=== PATIENT | female | born 1950 | race Caucasian/White ===

== ENCOUNTER 2019-10-23 20:15 | Emergency (ER) | payer MEDICARE, OTHER ==
[~2019-10-23] VITALS: Ht 170.2 cm; Wt 129.3 kg
--- OUTSIDE RECORDS SUMMARY | ~2019-10-23 | XMS | Encounter Summary ---
Demographics + + + | Address | [address] | | | [place] [address] | + + + | Home Phone | | + + + | Preferred Language | Unknown | + + + | Marital Status | Single | + + + | Synagogue Affiliation | 1077 | + + + | Race | Unknown | + + + | Ethnic Group | Unknown | + + + Author + + + | Author | [facility] | | | and [place] | + + + | Organization | [facility] | | | and [facility] | + + + | Address | Unknown | + + + | Phone | Unavailable | + + + Support + + + + + | Name | Relationship | Address | Phone | + + + + + | Aleks Noguera | BRYANT | [address] | | | | | [place], [place] | | | | | [address] | | + + + + + | Jelena Hill | ECON | [place] | | | | | [address] | | + + + + + Care Team Providers + +------+ + | Care Human Resource Statistician Name | Role | Phone | + +------+ + | Ivy Sun | PCP | | + +------+ + Encounter Details +--------+ + + + + | Date | Type | Department | Care Team | Description | +--------+ + + + + | 08/17/ | Hospital | 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; Rib pain | | | | [address] [place] | [address] [place], [place] | on right side | | | | [place], [place] | [address] | | | | | [address] | | | | | | [phone] | | | +--------+ + + + + Social History + + + +--------+------+ | Tobacco Use | Types | Packs/Day | Years | Date | | | | | Used | | + + + +--------+------+ | Former Smoker | Cigarettes | 0.5 | 15 | | + + + +--------+------+ + +---+---+ + | Smokeless Tobacco: | | | Quit: | | Former User | | | 11/23/19 | | | | | 15 | + +---+---+ + + + | Comments: at last visit since starting Chantix 08/25/12 | + + + + +---------+ + | Alcohol Use | Drinks/Week | oz/Week | Comments | + + +---------+ + | No | | | | + + +---------+ + + + + | Sex Assigned at | Date Recorded | | | | + + + | Not on file | | + + + + + + + | Job Start Date | Occupation | Industry | + + + + | Not on file | Not on file | Not on file | + + + + + + + + | Travel History | Travel Start | Travel End | + + + + + + | No recent travel history available. | + + documented as of this encounter Medications at Time of Discharge + + + +---------+ + + | Medication | Sig | Dispensed | Refills | Start | End Date | | | | | | Date | | + + + +---------+ + + | aspirin (ASPIRIN | Take 81 mg by mouth | | 0 | 07/08/20 | | | ADULT LOW STRENGTH) | Daily. | | | 12 | | | 81 MG EC tablet | | | | | | + + + +---------+ + + | UNCODED | Diagnosis: | 1 | 0 | 08/26/20 | | | MEDICATIONIndication | Obstructive Sleep | Device | | 12 | | | s: Obstructive sleep | ApneaICD-9: | | | | | | apnea (adult) | 327.23Length of | | | | | | (pediatric) | Need: 99 Months | | | | | + + + +---------+ + + | UNCODED MEDICATION | Wear at all times | 1 | 0 | 08/11/20 | | | | while sleeping. | Device | | 12 | | + + + +---------+ + + | alendronate | Take 1 tablet by | 12 | 3 | 10/14/20 | | | (FOSAMAX) 70 mg | mouth Once a week. | tablet | | 13 | 6 | | tabletIndications: | | | | | | | Osteopenia | | | | | | + + + +---------+ + + | Calcium | Take 1 tablet by | | 0 | | | | Carb-Cholecalciferol | mouth Daily. | | | | 8 | | (CALCIUM 1000 + D) | | | | | | | 1000-800 MG-UNIT | | | | | | | TABSIndications: | | | | | | | Vitamin D deficiency | | | | | | + + + +---------+ + + | cholecalciferol | Take 1,000 Units by | | 0 | | | | (VITAMIN D-3) 1,000 | mouth Daily. | | | | 6 | | units | | | | | | | capsuleIndications: | | | | | | | Vitamin D deficiency | | | | | | + + + +---------+ + + | FreeStyle Lancets | Test blood sugar | 100 | 5 | 03/09/20 | | | MISCIndications: | twice daily. 790.29 | each | | 14 | 8 | | Prediabetes | | | | | | + + + +---------+ + + | gabapentin | Take one capsule by | 90 | 1 | 08/17/20 | | | (NEURONTIN) 300 mg | mouth at bedtime for | capsule | | 15 | 6 | | capsuleIndications: | 3 days, then | | | | | | Right-sided thoracic | increase to 600 mg | | | | | | back pain | at bedtime daily | | | | | + + + +---------+ + + | glucose blood | Test blood sugar | 100 | 5 | 03/09/20 | | | test strips | twice daily. 790.29 | each | | 14 | 8 | | (FREESTYLE LITE) | | | | | | | stripIndications: | | | | | | | Prediabetes | | | | | | + + + +---------+ + + | | Take 1 tablet by | 40 | 0 | 08/18/20 | | | HYDROcodone-acetamin | mouth every 6 hours | tablet | | 15 | 6 | | ophen (NORCO) 5-325 | as needed for Pain. | | | | | | mg per | | | | | | | tabletIndications: | | | | | | | Compression fracture | | | | | | | of thoracic spine, | | | | | | | non-traumatic, | | | | | | | initial encounter | | | | | | | (HCC) | | | | | | + + + +---------+ + + | lisinopril | Take 1 tablet by | 90 | 1 | 02/10/20 | | | (PRINIVIL, ZESTRIL) | mouth every morning. | tablet | | 15 | 6 | | 10 mg | | | | | | | tabletIndications: | | | | | | | Essential | | | | | | | hypertension | | | | | | + + + +---------+ + + | | Take 1 tablet by | | 0 | | | | MedroxyPROGESTERone | mouth. Take 1 tablet | | | | 6 | | Acetate (PROVERA | QD x 10 days every | | | | | | PO)Indications: | 3 months for | | | | | | Postmenopausal | breakthrough menses | | | | | | vaginal bleeding | post menopause. | | | | | + + + +---------+ + + | metFORMIN | Take 1 tablet by | 90 | 1 | 02/10/20 | | | (GLUCOPHAGE) 500 mg | mouth daily (with | tablet | | 15 | 5 | | tabletIndications: | breakfast). | | | | | | Prediabetes | | | | | | + + + +---------+ + + | nortriptyline | Take 3 capsules by | 270 | 1 | 11/25/19 | | | (PAMELOR) 10 MG | mouth nightly. | capsule | | 15 | 5 | | capsule | | | | | | + + + +---------+ + + | paroxetine (PAXIL) | TAKE 1 TABLET BY | 90 | 1 | 02/10/20 | | | 40 MG | MOUTH DAILY | tablet | | 15 | 6 | | tabletIndications: | | | | | | | Anxious depression | | | | | | + + + +---------+ + + | rOPINIRole | Take 1 tablet by | 90 | 3 | 11/10/19 | | | (REQUIP) 2 MG | mouth nightly. | tablet | | 15 | 6 | | tabletIndications: | | | | | | | Restless legs | | | | | | + + + +---------+ + + | simvastatin | TAKE 1 TABLET BY | 90 | 3 | 07/28/20 | | | (ZOCOR) 10 mg tablet | MOUTH NIGHTLY | tablet | | 14 | 5 | + + + +---------+ + + | triamcinolone | Apply thin film to | 80 g | 1 | 10/14/20 | | | (KENALOG) 0.025% | affected area(s) two | | | 13 | 6 | | creamIndications: | daily as needed | | | | | | Seborrheic | | | | | | | dermatitis | | | | | | + + + +---------+ + + documented as of this encounter Plan of Treatment +--------+---------+ + + + | Date | Type | Specialty | Care Team | Description | +--------+---------+ + + + | 11/23/ | Office | Family Medicine | Ivy Sun | | | 2019 | Visit | | [address] | | | | | | [place] | | | | | | [id number] | | | | | | | | +--------+---------+ + + + documented as of this encounter Procedures + +--------+ + + + | Procedure Name | Priori | Date/Time | Associated Diagnosis | Comments | | | ty | | | | + +--------+ + + + | XR THORACIC SPINE 3 | Routin | 08/17/2015 | Right-sided | Results for this | | VW | e | 12:39 PM | thoracic back pain | procedure are in the | | | | PDT | | results section. | + +--------+ + + + | XR RIBS RIGHT W PA | Routin | 08/17/2015 | Rib pain on right | Results for this | | CHEST | e | 12:39 PM | side | procedure are in the | | | | PDT | | results section. | + +--------+ + + + documented in this encounter Results XR Ribs Right w PA Chest (08/17/2015 12:39 PM PDT) + + | Specimen | + + | | + + + + + | Narrative | Performed At | + + + | XR RIBS RIGHT W PA CHEST. 08/17/2015 12:39 PM HISTORY: | [facility] | | posterior right rib pain . COMPARISON: Thoracic spine x-ray | [facility] | | from same date FINDINGS: Heart size within normal limits. | [facility] | | Calcification of the tortuous aorta. The lungs are clear, without | - IMAGING | | pleural effusion or pneumothorax. S-shaped scoliotic deformity of | | | the thoracic spine, as described on the report from the thoracic | | | spine x-ray from the same date. There is a nondisplaced fracture of | | | the right posterior lateral ninth rib. No acute abnormality of the | | | soft tissues. IMPRESSION - Nondisplaced fracture of the right | | | posterior lateral ninth rib. Dictated and Signed by: Nacho | | | MD Benji Electronically signed: 08/17/2015 2:42 PM | | + + + + + | Procedure Note | + + | Yohannes, Rad Results In - 08/17/2015 2:46 PM PDT XR RIBS RIGHT W PA CHEST. 08/17/2015 | | 12:39 PMHISTORY: posterior right rib pain . COMPARISON: Thoracic spine x-ray from same | | dateFINDINGS:Heart size within normal limits. Calcification of the tortuous aorta. | | Thelungs are clear, without pleural effusion or pneumothorax. S-shaped | | scolioticdeformity of the thoracic spine, as described on the report from the | | thoracicspine x-ray from the same date.There is a nondisplaced fracture of the right | | posterior lateral ninth rib. Noacute abnormality of the soft tissues.IMPRESSION | | -Nondisplaced fracture of the right posterior lateral ninth rib.Dictated and Signed by: | | Nacho Leblanc MD Electronically signed: 08/17/2015 2:42 PM | |deformity of the thoracic spine, as described on the report from the thoracic | |spine x-ray from the same date. | |There is a nondisplaced fracture of the right posterior lateral ninth rib. No | |acute abnormality of the soft tissues. | | | | | |IMPRESSION - | |Nondisplaced fracture of the right posterior lateral ninth rib. | | | |Dictated and Signed by: Nacho Leblanc MD | | Electronically signed: 08/17/2015 2:42 PM | + + + + + + + | Performing | Address | City/State/Zipcode | Phone Number | | Organization | | | | + + + + + | [facility] | [address] | [place] | [phone] | | [facility] | | [address] | | | - IMAGING | | | | + + + + + XR Thoracic Spine 3 Vw (08/17/2015 12:39 PM PDT) + + | Specimen | + + | | + + + + + | Narrative | Performed At | + + + | XR THORACIC SPINE 3 VW. 08/17/2015 12:39 PM HISTORY: thoracic | [facility] | | back pain . COMPARISON: None available. FINDINGS: There is | [facility] | | a as S-shaped scoliotic deformity of the spine, levoconvex centered | [facility] | | at approximately the level of T4, and dextroconvex centered at the | - IMAGING | | thoracolumbar junction. There is approximately 25 degrees of | | | angulation in the upper thoracic spine, with approximately 10 degrees | | | of angulation at the thoracolumbar junction. There is exaggeration | | | of the thoracic kyphosis. Vertebral body alignment otherwise | | | appears maintained. There is loss of vertebral body height | | | secondary to superior endplate compression fracture, of uncertain | | | chronicity, with approximately 15-20% loss of vertebral body height | | | in a vertebral body in the mid to lower thoracic spine. Diminished | | | vertebral body height is seen to a lesser extent in several other mid | | | thoracic vertebral bodies. There is diffuse degenerative disc | | | disease. Multiple surgical clips in the upper abdomen, | | | predominantly on the left. IMPRESSION - S-shaped scoliotic | | | deformity, as detailed above. Approximately 15-20% loss of vertebral | | | body height in the mid to lower thoracic vertebral body, of uncertain | | | chronicity, possibly acute. Diminished vertebral body height at | | | several other levels in the midthoracic spine to a lesser extent. | | | Dictated and Signed by: Nacho Leblanc MD Electronically signed: | | | 08/17/2015 2:39 PM | | + + + + + | Procedure Note | + + | Yohannes, Rad Results In - 08/17/2015 2:42 PM PDT XR THORACIC SPINE 3 VW. 08/17/2015 | | 12:39 PMHISTORY: thoracic back pain . COMPARISON: None available.FINDINGS:There is a as | | S-shaped scoliotic deformity of the spine, levoconvex centered atapproximately the | | level of T4, and dextroconvex centered at the thoracolumbarjunction. There is | | approximately 25 degrees of angulation in the upper thoracicspine, with approximately 10 | | degrees of angulation at the thoracolumbarjunction. There is exaggeration of the | | thoracic kyphosis. Vertebral bodyalignment otherwise appears maintained. There is loss | | of vertebral body heightsecondary to superior endplate compression fracture, of | | uncertain chronicity,with approximately 15-20% loss of vertebral body height in a | | vertebral body inthe mid to lower thoracic spine. Diminished vertebral body height is | | seen to alesser extent in several other mid thoracic vertebral bodies. There is | | diffusedegenerative disc disease. Multiple surgical clips in the upper | | abdomen,predominantly on the left.IMPRESSION -S-shaped scoliotic deformity, as detailed | | above.Approximately 15-20% loss of vertebral body height in the mid to lower | | thoracicvertebral body, of uncertain chronicity, possibly acute. Diminished | | vertebralbody height at several other levels in the midthoracic spine to a lesser | | extent.Dictated and Signed by: Nacho Leblanc MD Electronically signed: 08/17/2015 | | 2:39 PM | |predominantly on the left. | | | | | |IMPRESSION - | |S-shaped scoliotic deformity, as detailed above. | |Approximately 15-20% loss of vertebral body height in the mid to lower thoracic | |vertebral body, of uncertain chronicity, possibly acute. Diminished vertebral | |body height at several other levels in the midthoracic spine to a lesser extent. | | | |Dictated and Signed by: Nacho Leblanc MD | | Electronically signed: 08/17/2015 2:39 PM | + + + + + + + | Performing | Address | City/State/Zipcode | Phone Number | | Organization | | | | + + + + + | [facility] | [address] | [place] | [phone] | | [facility] | | [phone] | | | - IMAGING | | | | + + + + + documented in this encounter Visit Diagnoses + + | Diagnosis | + + | Right-sided thoracic back pain | + + | Rib pain on right side Chest pain, unspecified | + + documented in this encounter"
--- OUTSIDE RECORDS SUMMARY | ~2019-10-23 | XMS | Encounter Summary ---
Demographics + + + | Address | [address] | | | [place] [address] | + + + | Home Phone | | + + + | Preferred Language | Unknown | + + + | Marital Status | Single | + + + | Jehovah'S Witness Affiliation | 1077 | + + + | Race | Unknown | + + + | Ethnic Group | Unknown | + + + Author + + + | Author | [facility] | | | and [place]ainerana | + + + | Organization | [facility] | | | and Rainerana [...] [place], [place] | | | | | [address] | | + + + + + | [address] | ECON | [place] | | | | | [address] | | + + + + + Care Team Providers + +------+ + | Care Grain Manager Name | Role | Phone | + +------+ + | Ivy Sun | PCP | | + +------+ + Reason for Visit + + + | Reason | Comments | + + + | Follow-up | | + + + Encounter Details +--------+---------+ + + + | Date | Type | Department | Care Team | Description | +--------+---------+ + + + | 09/07/ | Office | [facility] | Ivy Sun | Osteopenia (Primary | | 2014 | Visit | [facility] [place] | L, JUSTYN [address] | Dx); Compression | | | | [address] | [address]VE [place] | fracture of thoracic | | | | [place] | [phone] | vertebra, | | | | [address] | | non-traumatic, with | | | | [phone] | | routine healing, | | | | | | subsequent | | | | | | encounter; Fracture | | | | | | of one rib of right | | | | | | side with routine | | | | | | healing, subsequent | | | | | | encounter; Sinus | | | | | | tachycardia; | | | | | | Prediabetes; History | | | | | | of compression | | | | | | fracture of spine | +--------+---------+ + + + Social History + + [...] + + documented as of this encounter Last Filed Vital Signs + + + + + | Vital Sign | Reading | Time Taken | Comments | + + + + + | Blood Pressure | 130/80 | 09/07/2015 9:19 AM | | | | | PST | | + + + + + | Pulse | 120 | 09/07/2015 9:19 AM | | | | | PST | | + + + + + | Temperature | 36.9 C (98.5 F) | 09/07/2015 9:19 AM | | | | | PST | | + + + + + | Respiratory Rate | 18 | 09/07/2015 9:19 AM | | | | | PST | | + + + + + | Oxygen Saturation | 99% | 09/07/2015 9:19 AM | | | | | PST | | + + + + + | Inhaled Oxygen | - | - | | | Concentration | | | | + + + + + | Weight | 131.1 kg (289 lb) | 09/07/2015 9:19 AM | | | | | PST | | + + + + + | Height | 170.2 cm (5' 7") | 09/07/2015 9:19 AM | | | | | PST | | + + + + + | Body Mass Index | 45.26 | 09/07/2015 9:19 AM | | | | | PST | | + + + + + documented in this encounter Progress Notes Ivy Sun ARNP - 09/07/2015 9:11 AM PSTFormatting of this note might be differen t from the original. Lucie Miller is a 65 y.o. female Chief Complaint: Back Pain HPI Patient is here to follow up on her upper back pain from her compression and rib fracture. X-ray and MRI have been attained to confirm these diagnoses. Referrals been placed to neur osurgery and she has an upcoming appointment. She reports her pain is much better although she reports mild twinges when she gets up from a low position or takes a real deep breath. S he feels like the Gabapentin has helped a lot. She took the Hydrocodone last about 1 week ag o. Denies numbness or tingling anywhere. MRI results as follows: MRI THORACIC SPINE WO CONTRAST 08/24/2015 11:32 AM HISTORY: compression fracture seen on x-ray mid to lower thoracic spine, back pain. COMPARISON: None. PROTOCOL: Sagittal T2, sagittal T1, sagittal STIR, axial T2. FINDINGS: Mild S-shaped scoliosis is visualized of the thoracolumbar spine. There is mild thoracic spondylosis. Mild anterolisthesis is present of T3 over T4. Mild wedging of T8 is seen with about 20% height loss. A moderate amount of marrow edema is seen with high signal on T2 and STIR imaging. No destructive changes or mass lesions are seen to suggest pathologic fracture. Modic type 1 changes are in the posterior, inferior aspect of T7. Disc height are maintained. Imaged spinal cord shows normal signal with no evidence for myelomalacia or mass lesions. Tiny posterior disc bulges are present from T7-8 through T11-12 with no significant stenosis. There is a 2.0 cm round structure with high T2 signal in the left upper quadrant of the abdomen (image 25 on the axial T2 lower sequence) that has the appearance of a cyst, possibly from the left kidney. IMPRESSION - Mild compression fracture of T8 with moderate marrow edema that is consistent with recent occurrence. No destructive changes are seen to suggest a pathologic fracture. Mild S-shaped scoliosis of the thoracolumbar spine along with mild thoracic spondylosis. Round 2.0 cm structure with high T2 signal in left upper quadrant of abdomen that is only partially imaged. This has the appearance of a cyst, possibly from the left kidney. If clinically indicated, ultrasound imaging can be considered. Dictated and Signed by: Markie Baig MD Tachycardia Patient reports her heart rate is typically over 100. She see's Dr Wolf in cardiology and he is aware and is not concerned. Her recent EKG results were sinus tachycardia with right bundle branch block. She is schedule for yearly follow up in cardiology. She denies any pal pitations or chest pain, shortness of breath associated with this. She does feel that she b ecomes nervous when she comes into the clinic. Osteopenia Patient had a recent DEXA scan results as follows: She has been taking Fosamax for the past 2 years. She admits that she forgets frequently a nd best takes it once a month. She tolerates this well. DEXA BONE DENSITY STUDY OLIVIA ROSSI ASSESSMENT 09/06/2015 11:15 AM HISTORY: osteopenia and Hx of compression fracture of the spine. COMPARISON: May 12, 2013. PROTOCOL: Bone mineral density was calculated with dual absorption x-ray technique. FINDINGS: Bone mineral density for the left femoral neck is 0.736 g/cm2, corresponding to a T score of -1.7 and a Z score of -0.6. This represents a 3.7% decrease compared to baseline. This is not statistically significant. Bone mineral density for the lumbar spine measured from L1 to L2 is 0.851 g/cm2, corresponding to a T score of -1.2 and a Z score of 0.4. This represents a 1% decrease compared to baseline. This is not statistically significant. L3 and L4 are not utilized due to degenerative changes resulting in false elevation of bone mineral density. IMPRESSION - Total bone mineral density for the left femoral neck corresponds to World Health Organization classification of osteopenia. Total bone mineral density for the L1 to L4 region of the lumbar spine corresponds to World Health Organization classification of osteopenia. World Health Organization Classification Normal: T score at or above -1 SD Osteopenia: T score between -1 and -2.5 SD Osteoporosis: T score at or below -2.5 SD Dictated and Signed by: Forest Manley MD Electronically signed: 09/06/2015 4:38 PM Prediabetes Needs refill of Metformin PREVENTIVE CARE/PRIOR VISITS 1. Any recommendations from Health Maintenance: No Preventative Services TOPIC LAST DONE NEXT DUE Influenza Vaccine (Yearly) 08/17/2015 05/28/2016 Breast Cancer Screening (Mamm Q2 Years <50 Or >74 10/20/2013 10/20/2015 Colon Cancer Screening (Colonoscopy Every 10 Years 50-75) 05/20/2011 05/20/2021 Cervical Cancer Screening (Pap Every 3 Years 21-65 ) 05/05/2013 05/05/2016 2. Any immunizations necessary: No Immunization History Administered Date(s) Administered INFLUENZA, QUADRIVALENT PRESERVATIVE FREE (PED/ADOL/ADULT) 11/10/2014, 08/17/2015 INFLUENZA, TRIVALENT PRESERVATIVE FREE (PED/ADOL/ADULT) 08/25/2012, 10/14/2013 PNEUMOCOCCAL POLYSACCHARIDE 23-VALENT (PPSV23) 08/25/2012 TDAP, (ADOL/ADULT) 01/15/2007 3. Has patient been involved in medical events/hospitalizations since their last visit: No No Known Allergies Medications: Past Medical History She has a past medical history of Encounter for hearing conservation and treatment; Disorde r of bone and cartilage, unspecified; Sprain of ankle, unspecified site; Routine gynecologic al examination; Obesity, unspecified; Bronchitis, not specified as acute or chronic; Insomni a, unspecified; Anxiety state, unspecified; Other and unspecified hyperlipidemia; Abnormal g landular Papanicolaou smear of cervix; Essential hypertension, benign; Other seborrheic jeremy tosis; Depressed; Rotator cuff (capsule) sprain; Osteoporosis; Restless leg syndrome; Menopa usal and perimenopausal disorder (2003); Eczema; Hearing loss; Sleep apnea; Smoker; Seborrhe ic dermatitis (10/14/2013); Rosacea (10/14/2013); H/O diagnostic tests (12/14/2013); Aortic r oot enlargement (HCC) (01/13/2014); Prediabetes (12/09/2013); and Cataract (). Past Surgical History She has past surgical history that includes back surgery (1991); gastroplasty (1985); Bunio nectomy (1986); Toe Surgery; Endometrial biopsy (2001); Knee arthroscopy (2005); Total knee arthroplasty (07/15/13); and Dilation and curettage of uterus (06/03/2014). Family History: Her family history includes Alzheimer's disease in her mother; Heart attack in her father; Heart disease in her maternal grandfather and paternal grandmother; Stroke in her paternal g randfather; Thyroid disease in her sister. 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 Cardiovascular: Negative for chest pain, palpitations and leg swelling. Gastrointestinal: Negative for nausea, vomiting and diarrhea. Musculoskeletal: Upper right back and rib pain Objective: Filed Vitals: 09/07/15 0919 BP: 130/80 Pulse: 120 Temp: 36.9 C (98.5 F) TempSrc: Temporal Resp: 18 Height: 1.702 m (5' 7") Weight: 131.09 kg (289 lb) SpO2: 99% Physical Exam Constitutional: She is oriented to person, place, and time. She appears well-developed. No distress. Obese HENT: Head: Normocephalic and atraumatic. Eyes: Conjunctivae are normal. Right eye exhibits no discharge. Left eye exhibits no discha rge. Neck: Neck supple. No JVD present. Cardiovascular: Regular rhythm and normal heart sounds. Tachycardia present. No murmur heard. Heart rate Rate of 117 Pulmonary/Chest: Effort normal and breath sounds normal. No respiratory distress. She has n o wheezes. She has no rales. Lymphadenopathy: She has no cervical adenopathy. Neurological: She is alert and oriented to person, place, and time. Skin: Skin is warm and dry. She is not diaphoretic. Psychiatric: She has a normal mood and affect. Her behavior is normal. Nursing note and vitals reviewed. Results for orders placed or performed in visit on 08/24/15 External Lab: Creatinine Result Value Ref Range Creatinine, External 0.80 External Lab: eGFR Result Value Ref Range eGFR, External 72 External Lab: Microalbumin/Creatinine Ratio, Urine Result Value Ref Range Microalbumin/Creatinine Ratio, External 327.3 External Lab: Cholesterol, LDL Result Value Ref Range LDL Cholesterol, External 70 External Lab: Cholesterol, Total Result Value Ref Range Cholesterol, Total, External 148 mg/dl External Lab: Cholesterol, HDL Result Value Ref Range HDL Cholesterol, External 59.0 mg/dl External Lab: Triglycerides Result Value Ref Range Triglycerides, External 94 External Lab: Urinalysis Result Value Ref Range UA Blood, External 250 UA Glucose, External Normal UA Ketones, External 5 UA Ph, External 5 UA Proteins, External 150 UA RBC, External >50 UA Specific Davis, External 1.029 UA Leukocyte Esterase, External 500 External Lab: Sodium Result Value Ref Range Sodium, External 141 External Lab: Potassium Result Value Ref Range Potassium, External 4.2 External Lab: Chloride Result Value Ref Range Chloride, External 107 External Lab: Carbon Dioxide Result Value Ref Range Carbon Dioxide, External 23 External Lab: Calcium Result Value Ref Range Calcium, External 9.0 External Lab: Protein, Total Result Value Ref Range Protein, Total, External 6.5 External Lab: Albumin Result Value Ref Range Albumin, External 3.6 External Lab: Bilirubin, Total Result Value Ref Range Bilirubin, Total, External 0.4 External Lab: Alkaline Phosphatase Result Value Ref Range ALP, External 111 External Lab: AST Result Value Ref Range AST, External 35 External Lab: ALT Result Value Ref Range ALT, External 33 External Lab: Glucose Result Value Ref Range Glucose, External 99 External Lab: BUN Result Value Ref Range BUN, External 17 Hemoglobin A1C Result Value Ref Range Hemoglobin A1c, external 5.9 Assessment and Plans: 1. Compression fracture of thoracic vertebra, non-traumatic, with routine healing, subseque nt encounter encouraged her to keep her appointment coming up with neurosurgery. Will continue with her gabapentin as previously prescribed. If for pain starts to increase we can always go up on the gabapentin. - gabapentin (NEURONTIN) 600 MG tablet; Take 1 tablet by mouth nightly. Dispense: 90 table t; Refill: 3 2. Fracture of one rib of right side with routine healing, subsequent encounter Refilled Gabapentin as prescribed - gabapentin (NEURONTIN) 600 MG tablet; Take 1 tablet by mouth nightly. Dispense: 90 table t; Refill: 3 3. Sinus tachycardia discuss this has been a long-standing problem with her. She's asymptomatic. Dr. Sam peralta is aware. If she develops chest pain or palpitations she is to let us know. Continue to monitor and follow up with cardiology at regular follow up sooner prn worsening symptoms 4. Osteopenia Dexa scan results reviewed with her. She did have a slightly decrease in bone density but not statistically significant. She still falls within the osteopenia range. The compressio n fracture in the rib fracture not associated with any fall or injury. She does remember li fting heavy box. Encouraged her take her Fosamax weekly. Calcium supplement and vitamin D as well. Calcium supplement Continue Fosamax weekly 5. Prediabetes Refilled Metformin as prescribed Labs ordered - metFORMIN (GLUCOPHAGE) 500 mg tablet; Take 1 tablet by mouth daily (with breakfast). Dis pense: 90 tablet; Refill: 1 Return in about 3 months (around 12/08/2015) for recheck upper back pain. I Jessica Arellano am acting as a scribe on behalf of, and in the presence of JUSTYN Rodriges. Jessica Arellano CMA. 09/07/15 I have reviewed and edited this note: JUSTYN Babcock 09/07/15 documented in th is encounter Plan of Treatment +--------+---------+ + + + | Date | Type | Specialty | Care Team | Description | +--------+---------+ + + + | 11/23/ | Office | Family Medicine | Ivy Sun | | | 2019 | Visit | | Rishabh, JUSTYN [address] | | | | | | [place] | | | | | | [id number] | | | | | | | | +--------+---------+ + + + documented as of this encounter Visit Diagnoses + + | Diagnosis | + + | Osteopenia - Primary Disorder of bone and cartilage, unspecified | + + | Compression fracture of thoracic vertebra, non-traumatic, with routine healing, | | subsequent encounter | + + | Fracture of one rib of right side with routine healing, subsequent encounter | + + | Sinus tachycardia Other specified cardiac dysrhythmias | + + | Prediabetes Other abnormal glucose | + + | History of compression fracture of spine Personal history of traumatic fracture | + + documented in this encounter
--- OUTSIDE RECORDS SUMMARY | ~2019-10-23 | XMS | Encounter Summary ---
Demographics + + + | Address | [address] | | | [place] [address] | + + + | Home Phone | | + + + | Preferred Language | Unknown | + + + | Marital Status | Single | + + + | Anabaptism Affiliation | 1077 | + + + | Race | Unknown | + + + | Ethnic Group | Unknown | + + + Author + + + | Author | [facility] | | | and [place]ainerana | + + + | Organization | [facility] | | | and Rainerana | [...] [place], [place] | | | | | [address] | | + + + + + | [address] | ECON | [place] | | | | | [address] | | + + + + + Care Team Providers + +------+ + | Care Oracle R12 Developer Name | Role | Phone | + +------+ + | Ivy Sun | PCP | | + +------+ + Reason for Visit + + + | Reason | Comments | + + + | Medication Refill | | + + + Encounter Details +--------+--------+ + + + | Date | Type | Department | Care Team | Description | +--------+--------+ + + + | 09/28/ | Refill | [facility] | Ivy Sun | Medication Refill | | 2012 | | [place] | Rishabh, JUSTYN [address] | | | | | [address] | [place], [place] | | | | | [place], [place] | [address] | | | | | [address] | | | | | | [phone] | | | +--------+--------+ + + + Social History + + + +--------+------+ | Tobacco Use | Types | Packs/Day | Years | Date | | | | | Used | | + + + +--------+------+ | Former Smoker | Cigarettes | 0.5 | 15 | | + + + +--------+------+ + + | Comments: at last visit [...] Medicine | Ivy Sun | | | 2020 | Visit | | [address] | | | | | | [place] | | | | | | [phone] | | | | | | | | +--------+---------+ + + + documented as of this encounter Visit Diagnoses Not on filedocumented in this encounter"
--- OUTSIDE RECORDS SUMMARY | ~2019-10-23 | XMS | Encounter Summary ---
Demographics + + + | Address | [address] | | | [place] [address] | + + + | Home Phone | | + + + | Preferred Language | Unknown | + + + | Marital Status | Single | + + + | Orthodoxy Affiliation | 1077 | + + + | Race | Unknown | + + + | Ethnic Group | Unknown | + + + Author + + + | Author | [facility] | | | and [place]ainerana | + + + | Organization | [facility] | | | and Rainerana [...] [place], [place] | | | | | [address] | | + + + + + | [address] | ECON | [place] | | | | | [address] | | + + + + + Care Team Providers + +------+ + | Care Hollow Core Door Frame Assembler Name | Role | Phone | + +------+ + | Ivy Sun | PCP | | + +------+ + Reason for Visit +---------+ + | Reason | Comments | +---------+ + | Results | EKG | +---------+ + Encounter Details +--------+ + + + + | Date | Type | Department | Care Team | Description | +--------+ + + + + | 08/24/ | Telephone | [facility] | Ivy Sun | Results (EK) | | 2013 | | MEDICINE [place] | JUSTYN [address] | | | | | [address] | [place]VE [place] | | | | | [place] | [address] | | | | | [address] | | | | | | [phone] | | | +--------+ + + + + Social History + + + +--------+------+ | Tobacco Use | Types | Packs/Day | Years | Date | | | | | Used | | + + + +--------+------+ | Former Smoker | Cigarettes | 0.5 | 15 | | + + + +--------+------+ + +---+---+---+ | Smokeless Tobacco: | | | | | Never Used | | | | + +---+---+---+ + + | Comments: at last visit [...] 2019 | Visit | | JUSTYN [address] | | | | | | [place] | | | | | | [address] | | | | | | | | +--------+---------+ + + + documented as of this encounter Visit Diagnoses Not on filedocumented in this encounter"
--- OUTSIDE RECORDS SUMMARY | ~2019-10-23 | XMS | Encounter Summary ---
Demographics + + + | Address | [address] | | | [place] [address] | + + + | Home Phone | | + + + | Preferred Language | Unknown | + + + | Marital Status | Single | + + + | Confucianism Affiliation | 1077 | + + + | Race | Unknown | + + + | Ethnic Group | Unknown | + + + Author + + + | Author | [facility] | | | and [place]ainer[place] | + + + | Organization | [facility] | | | and [...] [place], [place] | | | | | [address] | | + + + + + | [address] | ECON | [place] | | | | | [address] | | + + + + + Care Team Providers + +------+ + | Care Casing Material Weigher Name | Role | Phone | + +------+ + | Ivy Sun | PCP | | + +------+ + Reason for Referral Evaluate & Treat (Urgent) +--------+ + + + + + | Status | Reason | Specialty | Diagnoses / | Referred By | Referred To | | | | | Procedures | Contact | Contact | +--------+ + + + + + | Closed | Specialty | Orthopedic | Diagnoses | Sun, | [facility] | | | Services | Surgery | Fracture of | Ivy L, | Orthopedic | | | Required | | 5th | DIRECT CARE SUPERVISOR [address] | | | | | metatarsal, | [address] | [address] | | | | | right, | [place], | [place], | | | | | closed, | [place] [address] | [place] | | | | | initial | Phone: | [phone] | | | | | encounter | [phone] | Phone: | | | | | | Fax: | [phone] | | | | | | [phone] | Fax: | | | | | | | [phone] | +--------+ + + + + + Reason for Visit + + + | Reason | Comments | + + + | Referral | [place] | | (PreAuthorization) | | + + + | Fracture | toe | + + + Encounter Details +--------+ + + + + | Date | Type | Department | Care Team | Description | +--------+ + + + + | 07/08/ | Telephone | [facility] | Ivy Sun | Referral | | 2013 | | MEDICINE [place] | Rishabh, JUSTYN [address] | (PreAuthorization) | | | | [address] | AVE [place], [place] | ([place]); Fracture | | | | [place] | [address] | (toe) | | | | [address] | | | | | | [phone] | | | +--------+ + + + [...] | | 2020 | Visit | | Rishabh, JUSTYN [address] | | | | | | [place] | | | | | | [id number] | | | | | | | | +--------+---------+ + + + + + +--------+ + + | Name | Type | Priori | Associated Diagnoses | Order Schedule | | | | ty | | | + + +--------+ + + | * DANIELLE NEWELL | Outpatient | Routin | Fracture of 5th | Ordered: 07/12/2014 | | Orthopedic Surgery - | Referral | e | metatarsal, right, | | | [facility]B Referral | | | closed, initial | | | | | | encounter | | + + +--------+ + + documented as of this encounter Visit Diagnoses + + | Diagnosis | + + | Fracture of 5th metatarsal, right, closed, initial encounter - Primary | + + documented in this encounter"
--- OUTSIDE RECORDS SUMMARY | ~2019-10-23 | XMS | Clinical Summary ---
Demographics + + + | Address | [address] | | | [place] [address] | + + + | Home Phone | | + + + | Preferred Language | Unknown | + + + | Marital Status | Unknown | + + + | Taoist Affiliation | Unknown | + + + | Race | Unknown | + + + | Ethnic Group | Unknown | + + + Author + + + | Author | [facility] [employer] (Historical as of | | | 06-13-19) | + + + | Organization | [facility] [employer] (Historical as of | | | 06-13-19) | + + + | Address | Unknown | + + + | Phone | Unavailable | + + + Care Team Providers + +------+ + | Care Granite Worker Name | Role | Phone | + +------+ + | Ivy Sun NP | PP | | + +------+ + Allergies Not on File Current Medications Not on file Active Problems Not on file Social History + +-------+ +--------+------+ | Tobacco Use | Types | Packs/Day | Years | Date | | | | | Used | | + +-------+ +--------+------+ | Never Assessed | | | | | + +-------+ +--------+------+ + + + | Sex Assigned at | Date Recorded | | | | + + + | Not on file | | + + + Plan of Treatment Not on file Results Not on filefrom Last 3 Months"
--- OUTSIDE RECORDS SUMMARY | ~2019-10-23 | XMS | Encounter Summary ---
Demographics + + + | Address | [address] | | | [place] [address] | + + + | Home Phone | | + + + | Preferred Language | Unknown | + + + | Marital Status | Single | + + + | Alevism Affiliation | Unknown | + + + | Race | White | + + + | Ethnic Group | Not or | + + + Author + + + | Author | [facility] | + + + | Organization | [facility] | + + + | Address | Unknown | + + + | Phone | Unavailable | + + + Support + + + + + | Name | Relationship | Address | Phone | + + + + + | Aleks Noguera | BRYANT | [address] | | | | | [place] | | | | | [address] | | + + + + + Care Team Providers + +------+ + | Care Filler Picker Name | Role | Phone | + +------+ + | Shelby Saldana MD,MPH | PCP | | + +------+ + Reason for Visit + + + | Reason | Comments | + + + | New patient | multiple issues she req eventual pap cxr us mamm and labs with | | consultation | vit d | + + + | Other | SEE NEW PROB LIST ALL EXTRACTED DUE FOR ANNUAL. NEEDS MEDS | | | AND PROB BASED ISSUES TODAY | + + + Encounter Details +--------+---------+ + + + | Date | Type | Department | Care Team | Description | +--------+---------+ + + + | 04/26/ | Office | [facility] Primary Care | Shelby Saldana, | Essential | | 2008 | Visit | at [facility] | ,MPH [address] | Hypertension--OFF | | | | [address] | [facility] | MEDS FOLLOW | | | | Loop Mailcode: | [place], [place] | (Primary Dx); | | | | [id number] | [id number] | Hypokalemia--- 2.? | | | | Kathryn Mar, | [phone] | NOW [place] AND | | | | [place] [address] | | HCTZ. ; | | | | [phone] | | Hypovitaminosis D--- | | | | | | ON 50 UNITS. A | | | | | | WEEK. 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 w falls | | | | | | ? have afo if | | | | | | indicated | +--------+---------+ + + + Social History + +-------+ +--------+------+ | Tobacco Use | Types | Packs/Day | Years | Date | | | | | Used | | + +-------+ +--------+------+ | Current Every Day | | | | | | Smoker | | | | | + +-------+ +--------+------+ + + +---------+ + | Alcohol Use | Drinks/Week | oz/Week | Comments | + + +---------+ + | Not Asked | | | | + + +---------+ [...] + + + | Blood Pressure | 120/90 | 04/26/2009 1:45 PM | | | | | PDT | | + + + + + | Pulse | - | - | | + + + + + | Temperature | - | - | | + + + + + | Respiratory Rate | - | - | | + + + + + | Oxygen Saturation | - | - | | + + + + + | Inhaled Oxygen | - | - | | | Concentration | | | | + + + + + | Weight | 119.7 kg (264 lb) | 04/26/2009 1:45 PM | | | | | PDT | | + + + + + | Height | 170.2 cm (5' 7") | 04/26/2009 1:45 PM | | | | | PDT | | + + + + + | Body Mass Index | 41.35 | 04/26/2009 1:45 PM | | | | | PDT | | + + + + + documented in this encounter Patient Instructions Patient Instructions Shelby Saldana MD,MPH - 04/26/2009 2:30 PM PDTIf you sign up for m y chart You can let us know tests done Then we will know to find if we not have them Blood pressure 120/90, height 1.702 m (5' 7"), weight 119.75 kg (264 lb). Goal bp < 130 <80 Please set recheck appt For may for your annual. Lets plan the US after the exam Unless you have symptoms Please check in with support for the non smoking Consider what the "piece is" that you can substitute---- SHELBY SALDANA MD MPH Occupational and Internal Medicine [address] [place] [address] [place] [address] Office [phone] Rn Anesthesiology [phone] FOR URGENCY CARE CALL OFFICE 8-4 FOLLOW YOUR BP AND SEND TO ME BY MY CHART ONCE W KN OW THE K WE CAN DECIDE ON RX. documented in this encounter Progress Notes Shelby Saldana MD,MPH - 04/26/2009 7:14 PM PDTFormatting of this note might be differen t from the original. Chief Complaint Patient presents with New patient consultation multiple issues she req eventual pap cxr us mamm and labs with vit d Other SEE NEW PROB LIST ALL EXTRACTED DUE FOR ANNUAL. NEEDS MEDS AND PROB BASED ISSUES TODA Y Patient Active Problem List Diagnoses Code Gastric Bypass Status for Obesity-staple 1986 V45.86H Restless Leg Syndrome QD MIRAPEX 333.94J Hypovitaminosis D--- ON 50 UNITS. A WEEK. 268.9N Hypokalemia--- 2.? NOW OFF JENIFER AND HCTZ. 276.8A Leg Cramps 729.82Y Hearing Loss--bilat 389.9AB Rosacea--NO EXACERBANTS 695.3 Ovarian Cyst---- 2 YEARS AGO ON HX 620.2S Routine Gynecological Examination-- due in may. 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 have afo if indicated 736.79 G Rotator Cuff Tear- presumptive R 840.4F See list in epicare for meds Off any antihypertensives Past Surgical History Procedure Date Pr laminectomy,lumbar 1991 Hx cholecystectomy 1986 Gastric stapling 1985 Hx bunionectomy r hardware r hammertoe Past Medical History Diagnosis Date Fracture nose finger ribs and ankle x 2 Myopia ? exact issues correction 30 years Family History Problem Relation Other Father 82 DIAB CAD BYPASS ? PC Other Mother ALHZ AT 77 and complications Other Sister thyroid niddm mi at 58 bro well at 53 History Social History Marital Status: Single Spouse Name: N/A Number of Children: N/A Years of Education: N/A Occupational History Not on file. 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 ROS: See above with detailed hx for positives- GENERAL: leg cramps HEENT: Dental UTDNo ear throat dental or eye problems LUNGS No cough No blood CARDIAC: No chest jaw shoulder arm or neck pain with exertion. No PND No Orthopnea. No h x of [place] vasc dis. of COMM[employer] AIDE or perif. GI occ heartburn NEG FOR ROS OF OV CA. ENDO- No symptoms of diabetes or throid problems. NEURO- NO PROGRESS OF R FOOT DROP No hx of CVA DOES FALL FREQ ALLERGY- mild seasonal. PSYCHIATRY- No self harm issues Physical Examination: Blood pressure 120/90, height 1.702 m (5' 7"), weight 119.75 kg (264 lb). Body mass index is 41.35 kg/(m^2). 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 CBLL NORMAL DATA PENDING Encounter Diagnoses Code Name Primary? Qualifier 401.9AC Essential Hypertension--OFF MEDS FOLLOW SEE AVS SURVEILLANCE CVR LIPIDS AND CONTROL BP SIG FAM HX MALIG NEEDS GYNE There is no immunization history on file for this patient. ENDO GLU AND D Yes 276.8A Hypokalemia--- 2.? NOW OFF JENIFER AND HCTZ. Plan: BASIC METABOLIC SET (NA, K, CL, TCO2, BUN, CR, GLU, CA), VITAMIN D, 25-HYDROXY, SERU M, BASIC METABOLIC SET (NA, K, CL, TCO2, BUN, CR, GLU, CA), LIPID SET (TRIG, T CHOL, HDL, CA LC LDL), TSH 268.9N Hypovitaminosis D--- ON 50 UNITS. A WEEK. Plan: VITAMIN D, 25-HYDROXY, SERUM, VITAMIN D, 25-HYDROXY, SERUM, BASIC METABOLIC SET (NA, K, CL, TCO2, BUN, CR, GLU, CA), LIPID SET (TRIG, T CHOL, HDL, CALC LDL), TSH 333.94J Restless Leg Syndrome QD MIRAPEX Plan: LIPID SET (TRIG, T CHOL, HDL, CALC LDL), TSH, VITAMIN D, 25-HYDROXY, SERUM, BASIC ME TABOLIC SET (NA, K, CL, TCO2, BUN, CR, GLU, CA), LIPID SET (TRIG, T CHOL, HDL, CALC LDL), TS H 729.82Y Leg Cramps Plan: TSH, VITAMIN D, 25-HYDROXY, SERUM, BASIC METABOLIC SET (NA, K, CL, TCO2, BUN, CR, GL U, CA), LIPID SET (TRIG, T CHOL, HDL, CALC LDL), TSH 733.90X Osteopenia- OUTSIDE DEXA 736.79G 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 have afo if indicated Janneth Solano - 0 04/26/2009 1:49 PM PDTRoomed patient for Physician visit. Blood pressure, pulse, tobacco hi story, allergies, and weight checked. Pain level assessed. Medication review completed. documented in this encounter Plan of Treatment + +------+--------+ + + | Name | Type | Priori | Associated Diagnoses | Order Schedule | | | | ty | | | + +------+--------+ + + | VITAMIN D, | Lab | Routin | Hypokalemia--- | Ordered: 04/26/2009 | | 25-HYDROXY, SERUM | | e | 2.? NOW OFF JENIFER | | | | | | AND HCTZ. | | | | | | Hypovitaminosis D--- | | | | | | ON 50 UNITS. A | | | | | | WEEK. Restless | | | | | | Leg Syndrome QD | | | | | | MIRAPEX Leg | | | | | | Cramps | | + +------+--------+ + + | BASIC METABOLIC SET | Lab | Routin | Hypokalemia--- | Ordered: 04/26/2009 | | (NA, K, CL, TCO2, | | e | 2.? NOW OFF JENIFER | | | BUN, CR, GLU, CA) | | | AND HCTZ. | | | | | | Hypovitaminosis D--- | | | | | | ON 50 UNITS. A | | | | | | WEEK. Restless | | | | | | Leg Syndrome QD | | | | | | MIRAPEX Leg | | | | | | Cramps | | + +------+--------+ + + | LIPID SET (TRIG, T | Lab | Routin | Hypokalemia--- | Ordered: 04/26/2009 | | CHOL, HDL, CALC LDL) | | e | 2.? NOW OFF JENIFER | | | | | | AND HCTZ. | | | | | | Hypovitaminosis D--- | | | | | | ON 50 UNITS. A | | | | | | WEEK. Restless | | | | | | Leg Syndrome QD | | | | | | MIRAPEX Leg | | | | | | Cramps | | + +------+--------+ + + | TSH | Lab | Routin | Hypokalemia--- | Ordered: 04/26/2009 | | | | e | 2.? NOW OFF JENIFER | | | | | | AND HCTZ. | | | | | | Hypovitaminosis D--- | | | | | | ON 50 UNITS. A | | | | | | WEEK. Restless | | | | | | Leg Syndrome QD | | | | | | MIRAPEX Leg | | | | | | Cramps | | + +------+--------+ + + documented as of this encounter Procedures + +--------+ + + + | Procedure Name | Priori | Date/Time | Associated Diagnosis | Comments | | | ty | | | | + +--------+ + + + | LAB REPORTS | | 05/25/2009 | | Results for this | | | | 12:00 AM | | procedure are in the | | | | PDT | | results section. | + +--------+ + + + documented in this encounter Results LAB REPORTS (05/25/2009 12:00 AM PDT) + + + | Narrative | Performed At | + + + | | | + + + + + | Procedure Note | + + | Jodi Zabala - 05/25/2009 12:00 AM PDT | | | + + documented in this encounter Visit Diagnoses + + | Diagnosis | + + | Essential Hypertension--OFF MEDS FOLLOW - Primary Unspecified essential | | hypertension | + + | Hypokalemia--- 2.? NOW OFF JENIFER AND HCTZ. Hypopotassemia | + + | Hypovitaminosis D--- ON 50 UNITS. A WEEK. 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 have afo if indicated | | Other acquired deformity of ankle and foot | + + documented in this encounter
--- OUTSIDE RECORDS SUMMARY | ~2019-10-23 | XMS | Encounter Summary ---
Demographics + + + | Address | [address] | | | [place] [address] | + + + | Home Phone | | + + + | Preferred Language | Unknown | + + + | Marital Status | Single | + + + | Restorationist Affiliation | [id number] | + + + | Race | Unknown | + + + | Ethnic Group | Unknown | + + + Author + + + | Author | [facility] | | | and [place] | + + + | Organization | [facility] | | | and [place] | [...] [place], [place] | | | | | [address] | | + + + + + | [address] | ECON | [place] | | | | | [address] | | + + + + + Care Team Providers + +------+ + | Care Trial Court Justice Name | Role | Phone | + +------+ + | Ivy Sun | PCP | | + +------+ + Reason for Visit + + + | Reason | Comments | + + + | Hypertension | 6 mo follow up | + + + | Anxiety | 6 mo follow up | + + + | Depression | 6 mo follow up | + + + | Back Pain | | + + + Encounter Details +--------+---------+ + + + | Date | Type | Department | Care Team | Description | +--------+---------+ + + + | 08/17/ | Office | [facility] | Ivy Sun | Right-sided 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 | | 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, 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 (Primary | | | | [address] | [place] | Dx); Rib pain on | | | | [place] | [address] | right side; Anxious | | | | [address] | | depression; | | | | [phone] | | Osteopenia; History | | | | | | of compression | | | | | | fracture of spine; | | | | | | Needs flu shot | +--------+---------+ + + + Social History [...] + + + | Blood Pressure | 132/72 | 08/17/2015 11:31 AM | | | | | PDT | | + + + + + | Pulse | 111 | 08/17/2015 11:31 AM | | | | | PDT | | + + + + + | Temperature | 36.8 C (98.2 F) | 08/17/2015 11:31 AM | | | | | PDT | | + + + + + | Respiratory Rate | 18 | 08/17/2015 11:31 AM | | | | | PDT | | + + + + + | Oxygen Saturation | 99% | 08/17/2015 11:31 AM | | | | | PDT | | + + + + + | Inhaled Oxygen | - | - | | | Concentration | | | | + + + + + | Weight | 132 kg (291 lb) | 08/17/2015 11:31 AM | | | | | PDT | | + + + + + | Height | 170.2 cm (5' 7") | 08/17/2015 11:31 AM | | | | | PDT | | + + + + + | Body Mass Index | 45.58 | 08/17/2015 11:31 AM | | | | | PDT | | + + + + + documented in this encounter Progress Notes Jessica Arellano Cert MA - 08/17/2015 1:26 PM PDTAfter obtaining informed consent, the im munization is given by MIC SPARKS. Anjelica Tran ARNP - 08/17/2015 11:04 AM PDTFormatting of this note might be different from the origi nal. Lucie Miller is a 65 y.o. female Chief Complaint: Hypertension; Anxiety; Depression; and Back Pain HPI Hypertension: Control and Compliance Lisinopril 10 mg Medication compliance: good Home Blood Pressures: Not monitoring Exercise: No BP: 132/72 mmHg BP Readings from Last 3 Encounters: 08/17/15 132/72 02/09/15 122/70 01/26/15 102/70 Pt denies: No headache, visual symptoms, neurologic problems, syncope No chest pain, palpitations, ROSAS, orthopnea, PND, peripheral edema No side effects from any antihypertensive medications Lab Results Component Value Date LDL 83 05/12/2013 Depression/Anxiety: Patient is here for follow-up of Depression and anxiety. Onset: Ongoing She has the following depression symptoms: anhedonia, depressed mood, difficulty concentrat ing, fatigue, feelings of worthlessness/guilt and insomnia She denies the following symptoms: impaired memory, recurrent thoughts of , suicidal a ttempt, suicidal thoughts with specific plan and suicidal thoughts without plan She complains of the following anxiety symptoms: feeling nervous, anxious, worrying too muc h, having trouble relaxing, being restless/hard to sit still and feeling afraid something ba d might happen Symptoms have been are worsening over few months due to situational stressors and current p ain across upper back which started 2.5 weeks ago Sleep Disturbance: Yes Staying asleep Are you currently in counseling: no Treatments Tried: Medication Have they been effective: Yes PHQ-9 score: 24 GISELL-7 score: 18 Back Pain Patient presents for evaluation of upperback problems. Symptoms have been present for 2 wee ks Symptoms include: stabbing pains across upper back pain in upper back (sharp and stabbing in character; 5/10 in severity) Initial inciting event: none that she can remember. Denies any falls Pain occurs all day. Alleviating factors identifiable by the patient are none. Aggravating factors identifiable by the patient are bending backwards, bending forwards, increased intrathoracic pressure (co ugh, sneeze, etc.), recumbency, sitting and deep breathing. Treatments for this issue in the past : none. PREVENTIVE CARE/PRIOR VISITS 1. Any recommendations from Health Maintenance: No Preventative Services TOPIC LAST DONE NEXT DUE Influenza Vaccine (Yearly) 11/10/2014 05/28/2015 Breast Cancer Screening (Mamm Q2 Years <50 Or >74 10/20/2013 10/20/2015 Colon Cancer Screening (Colonoscopy Every 10 Years 50-75) 05/20/2011 05/20/2021 Cervical Cancer Screening (Pap Every 3 Years 21-65 ) 05/05/2013 05/05/2016 2. Any immunizations necessary: No Immunization History Administered Date(s) Administered INFLUENZA, QUADRIVALENT PRESERVATIVE FREE (PED/ADOL/ADULT) 11/10/2014 INFLUENZA, TRIVALENT PRESERVATIVE FREE (PED/ADOL/ADULT) 08/25/2012, 10/14/2013 PNEUMOCOCCAL POLYSACCHARIDE 23-VALENT (PPSV23) 08/25/2012 TDAP, (ADOL/ADULT) 01/15/2007 Influenza 3. Has patient been involved in medical [...] Negative for nausea, vomiting and diarrhea. Musculoskeletal: Positive for back pain (upper). Objective: Filed Vitals: 08/17/15 1131 BP: 132/72 Pulse: 111 Temp: 36.8 C (98.2 F) TempSrc: Temporal Resp: 18 Height: 1.702 m (5' 7") Weight: 131.997 kg (291 lb) SpO2: 99% Physical Exam Constitutional: She is oriented to person, place, and time. She appears well-developed and well-nourished. No distress. HENT: Head: Normocephalic and atraumatic. Eyes: Conjunctivae are normal. Right eye exhibits no discharge. Left eye exhibits no discha rge. Neck: Neck supple. No JVD present. Cardiovascular: Normal rate, regular rhythm and normal heart sounds. No murmur heard. Pulmonary/Chest: Effort normal and breath sounds normal. No respiratory distress. She has n o wheezes. She has no rales. Musculoskeletal: Thoracic back: She exhibits tenderness (over right posterior rib area). She exhibits n ormal range of motion, no bony tenderness, no swelling, no edema, no deformity and normal pu lse. Back: Lymphadenopathy: She has no cervical adenopathy. Neurological: She is alert and oriented to person, place, and time. She has normal strength . Coordination normal. Skin: Skin is warm and dry. She is not diaphoretic. Psychiatric: Her behavior is normal. Her mood appears anxious. Her speech is not rapid and/ or pressured. Tearful complaining of pain. Nursing note and vitals reviewed. Results for orders placed or performed in visit on 11/19/14 External Lab: Creatinine Result Value Ref Range Creatinine, External 0.87 External Lab: eGFR Result Value Ref Range eGFR, External 66 eGFR, , External External Lab: Sodium Result Value Ref Range Sodium, External 137 External Lab: Potassium Result Value Ref Range Potassium, External 4.0 External Lab: Chloride Result Value Ref Range Chloride, External 101 External Lab: Carbon Dioxide Result Value Ref Range Carbon Dioxide, External 25 External Lab: Calcium Result Value Ref Range Calcium, External 9.5 External Lab: Albumin Result Value Ref Range Albumin, External 3.9 External Lab: Glucose Result Value Ref Range Glucose, External 90 Assessment and Plans: 1. Right-sided thoracic back pain She has a hx of previous compression fracture and osteopenia. Concern with her spontaneous back pain is for another compression fracture. Will obtain thoracic spine images and will st art her on gabapentin to help with the nerve pain she is experiencing. Explained this will n eed to titrated to a therapeutic dose. I will have our PHARM D work with her on titration of gabapentin. Images ordered. Will notify of results as they are available. Gabapentin as prescribed. - XR Thoracic Spine 3 Vw; Future - gabapentin (NEURONTIN) 300 mg capsule; Take one capsule by mouth at bedtime for 3 days, t hen increase to 600 mg at bedtime daily Dispense: 90 capsule; Refill: 1 2. Rib pain on right side Images ordered. Discussed this may radiculopathy from thoracic spine problem. Will notify of results as they are available. - XR Ribs Right w PA Chest; Future 3. Needs flu shot Immunization counseling discussed by myself and updated today - Quadrivalent Flu vac greater than or equal to 3YO preservative free IM 4. Osteopenia Referral for DEXA scan Previous dexa 2012 reviewed and due for a repeat - DEXA Bone Density Study WO Vert FX Asses; Future 5. History of compression fracture of spine Referral for DEXA scan - DEXA Bone Density Study WO Vert FX Asses; Future Follow up in 2 weeks to recheck back pain Care instructions and warning signs were discussed. Medications per orders. Side effects discussed. Labs and investigations per orders. Dejah Arellano am acting as a scribe on behalf of, and in the presence of JUSTYN Rodriges. Jessica Arellano CMA. 08/17/15 I have reviewed and edited this note: JUSTYN Babcock 08/17/15 documented in th is encounter Plan of [...] [place] | | | | | | [id number] | | | | | | | | +--------+---------+ + + + documented as of this encounter Results DEXA Bone Density Study OLIVIA Lizeth Renee (09/06/2015 11:15 AM PST) + + | Specimen | + + | | + + + + + | Narrative | Performed At | + + + | DEXA BONE DENSITY STUDY WO LIZETH FX ASSESSMENT 09/06/2015 11:15 AM | [facility] | | HISTORY: osteopenia and Hx of compression fracture of the spine. | Naomi [facility] | | COMPARISON: May 12, 2013. PROTOCOL: Bone mineral density was | [facility] | | calculated with dual absorption x-ray technique. FINDINGS: Bone | - IMAGING | | mineral density for the left femoral neck is 0.736 g/cm2, | | | corresponding to a T score of -1.7 and a Z score of -0.6. This | | | represents a 3.7% decrease compared to baseline. This is not | | | statistically significant. Bone mineral density for the lumbar | | | spine measured from L1 to L2 is 0.851 g/cm2, corresponding to a T | | | score of -1.2 and a Z score of 0.4. This represents a 1% decrease | | | compared to baseline. This is not statistically significant. L3 | | | and L4 are not utilized due to degenerative changes resulting in | | | false elevation of bone mineral density. IMPRESSION - Total bone | | | mineral density for the left femoral neck corresponds to World Health | | | Organization classification of osteopenia. Total bone mineral | | | density for the L1 to L4 region of the lumbar spine corresponds to | | | World Health Organization classification of osteopenia. World | | | Health Organization Classification Normal: | | | T score at or above -1 SD Osteopenia: T score between | | | -1 and -2.5 SD Osteoporosis: T score at or below -2.5 SD | | | Dictated and Signed by: Forest Manley MD Electronically | | | signed: 09/06/2015 4:38 PM | | + + + + + | Procedure Note | + + | Nic Sheffield Results In - 09/06/2015 4:41 PM PST DEXA BONE DENSITY STUDY WO VERNathaly FX | | ASSESSMENT 09/06/2015 11:15 AMHISTORY: osteopenia and Hx of compression fracture of the | | spine.COMPARISON: May 12, 2013.PROTOCOL: Bone mineral density was calculated with dual | | absorption x-raytechnique.FINDINGS:Bone mineral density for the left femoral neck is | | 0.736 g/cm2, corresponding toa T score of -1.7 and a Z score of -0.6. This represents a | | 3.7% decreasecompared to baseline. This is not statistically significant.Bone mineral | | density for the lumbar spine measured from L1 to L2 is 0.851 g/cm2,corresponding to a T | | score of -1.2 and a Z score of 0.4. This represents a 1%decrease compared to baseline. | | This is not statistically significant. L3 andL4 are not utilized due to degenerative | | changes resulting in false elevation ofbone mineral density.IMPRESSION -Total bone | | mineral density for the left femoral neck corresponds to World HealthOrganization | | classification of osteopenia.Total bone mineral density for the L1 to L4 region of the | | lumbar spinecorresponds to World Health Organization classification of osteopenia.World | | Health Organization ClassificationNormal: T score at or above -1 | | SDOsteopenia: T score between -1 and -2.5 SDOsteoporosis: T score at or | | below -2.5 SDDictated and Signed by: Forest Manley MD Electronically signed: | | 09/06/2015 4:38 PM | |L4 are not utilized due to degenerative changes resulting in false elevation of | |bone mineral density. | | | |IMPRESSION - | |Total bone mineral density for the left femoral neck corresponds to World Health | |Organization classification of osteopenia. | | | |Total bone mineral density for the L1 to L4 region of the lumbar spine | |corresponds to World Health Organization classification of osteopenia. | | | |World Health Organization Classification | |Normal: T score at or above -1 SD | |Osteopenia: T score between -1 and -2.5 SD | |Osteoporosis: T score at or below -2.5 SD | | | |Dictated and Signed by: Forest Manley MD | | Electronically signed: 09/06/2015 4:38 PM | + + + + + + + | Performing | Address | City/State/Zipcode | Phone Number | | Organization | | | | + + + + + | [facility] | [address] | [place] | [phone] | | [facility] | | [id number] | | | - IMAGING | | | | + + + + + XR Ribs Right w PA Chest (08/17/2015 12:39 PM PDT) + + | Specimen | + + | | + + + + + | Narrative | Performed At | + + + | XR RIBS RIGHT W PA CHEST. 08/17/2015 12:39 PM HISTORY: | [facility] | | posterior right rib pain . COMPARISON: Thoracic spine x-ray | [facility] | | from same date [...] | + + + + + | [facility] | [address] | [place], [place] | [phone] | | [facility] | | [id number] | | | - IMAGING | | [...] | + + + + + | [facility] | [address] | [place] | [phone] | | [facility] | | [address] | | | - IMAGING | | | | + + + + + documented in this encounter Visit Diagnoses + + | Diagnosis | + + | Right-sided thoracic back pain - Primary | + + | Rib pain on right side Chest pain, unspecified | + + | Anxious depression | + + | Osteopenia Disorder of bone and cartilage, unspecified | + + | History of compression fracture of spine Personal history of traumatic fracture | + + | Needs flu shot Need for prophylactic vaccination and inoculation against influenza | + + documented in this encounter
--- OUTSIDE RECORDS SUMMARY | ~2019-10-23 | XMS | Encounter Summary ---
Demographics + + + | Address | [address] | | | [place] [address] | + + + | Home Phone | | + + + | Preferred Language | Unknown | + + + | Marital Status | Single | + + + | Mu-Ism Affiliation | [id number] | + + + | Race | Unknown | + + + | Ethnic Group | Unknown | + + + Author + + + | Author | [facility] | | | and [place]ainer[place] | + + + | Organization | [facility] | | | and Rainerana [...] [place], [place] | | | | | [address] | | + + + + + | [address] | ECON | [place] | | | | | [address] | | + + + + + Care Team Providers + +------+ + | Care Sewing Teacher Name | Role | Phone | + +------+ + | Ivy Sun | PCP | | + +------+ + Reason for Visit Evaluate & Treat (Routine) +--------+ + + + + + | Status | Reason | Specialty | Diagnoses / | Referred By | Referred To | | | | | Procedures | Contact | Contact | +--------+ + + + + + | Closed | Specialty | Sleep | Diagnoses | Kahlil, | [facility] | | | Services | Medicine | [facility] | Reymundo Allen | [place] [address] | | | Required | | (obstructive | MD [address] | [place] | | | | | sleep | [place] | [place], | | | | | apnea) | [facility] | [place] [address] | | | | | Restless | [place], [place] | Phone: | | | | | legs | [phone] | [phone] | | | | | syndrome | Phone: | Fax: | | | | | Procedures | [phone] | [phone] | | | | | GA POLYSOM | Fax: | | | | | | 6/>YRS SLEEP | [phone] | | | | | | 4/> ADDL | | | | | | | ANNA ATTND | | | | | | | NPSG (sched | | | | | | | 12/5) | | | +--------+ + + + + + Encounter Details +--------+ + + + + | Date | Type | Department | Care Team | Description | +--------+ + + + + | 12/25/ | Hospital | [facility] | Reymundo Guillory | Obstructive sleep | | 2018 - | Encounter | [facility] | MD [address] | apnea; Restless legs | | | | CENTER [address] | [address] [place] [address] | syndrome | | 12/26/ | | [place] | [place] [address] | | | 2018 | | [address] | [phone] | | | | | [phone] | | | +--------+ + + + + Social History + + + +--------+ + | Tobacco Use | Types | Packs/Day | Years | Date | | | | | Used | | + + + +--------+ + | Former Smoker | Cigarettes | 0.5 | 15 | 11/19/1999 - | | | | | | 11/19/2014 | + + + +--------+ + + +---+---+---+ | Smokeless Tobacco: | | | | | Never Used | | | | + +---+---+---+ + + +---------+ + | Alcohol Use | Drinks/Week | oz/Week | Comments | + + +---------+ + | Yes | 0 Standard drinks | 0.0 | rarely | | | or equivalent | | | + + +---------+ + [...] + + + +---------+ + + | Cholecalciferol | Take 1 tablet by | | 0 | | | | (VITAMIN D3) 50476 | mouth Once a week. | | | | 9 | | units TABS | | | | | | + + + +---------+ + + | FreeStyle Lancets | Test blood sugar | 100 | 5 | 03/09/20 | | | MISCIndications: | twice daily. 790.29 | each | | 14 | 8 | | Prediabetes | | | | | | + + + +---------+ + + | gabapentin | Take 1 tablet by | 90 | 3 | 11/26/19 | | | (NEURONTIN) 600 MG | mouth nightly. | tablet | | 17 | 8 | | tabletIndications: | | | | | | | Compression fracture | | | | | | | of thoracic | | | | | | | vertebra, | | | | | | | non-traumatic, with | | | | | | | routine healing, | | | | | | | subsequent encounter | | | | | | + [...] tablet by | 90 | 1 | 08/28/20 | | | (PRINIVIL, ZESTRIL) | mouth Daily. | tablet | | 16 | 8 | | 5 mg | | | | | | | tabletIndications: | | | | | | | Essential | | | | | | | hypertension | | | | | | + + + +---------+ + + | metFORMIN | TAKE ONE TABLET BY | 90 | 1 | 11/26/19 | | | (GLUCOPHAGE) 500 mg | MOUTH DAILY WITH | tablet | | 17 | 8 | | tabletIndications: | BREAKFAST | | | | | | Impaired fasting | | | | | | | glucose | | | | | | + + + +---------+ + + | methocarbamol | Take 1 tablet by | 120 | 1 | 11/26/19 | | | (ROBAXIN) 500 mg | mouth 4 times daily. | tablet | | 17 | 8 | | tabletIndications: | | | | | | | Acute midline | | | | | | | thoracic back pain | | | | | | + + + +---------+ + + | nortriptyline | TAKE THREE CAPSULES | 270 | 1 | 11/26/19 | | | (PAMELOR) 10 MG | BY MOUTH NIGHTLY | capsule | | 17 | 8 | | capsuleIndications: | | | | | | | Compression fracture | | | | | | | of thoracic | | | | | | | vertebra, | | | | | | | non-traumatic, with | | | | | | | routine healing, | | | | | | | subsequent encounter | | | | | | + + + +---------+ + + | oxybutynin | Take 1 tablet by | 90 | 1 | 09/02/20 | | | (DITROPAN-XL) 10 MG | mouth Daily. | tablet | | 17 | 8 | | 24 hr | | | | | | | tabletIndications: | | | | | | | OAB (overactive | | | | | | | bladder) | | | | | | + + + +---------+ + + | PARoxetine (PAXIL) | TAKE ONE TABLET BY | 90 | 0 | 12/27/19 | | | 40 MG tablet | MOUTH DAILY | tablet | | 18 | 8 | + + + +---------+ + + | rOPINIRole | TAKE ONE TABLET BY | 90 | 1 | 11/26/19 | | | (REQUIP) 2 MG | MOUTH NIGHTLY | tablet | | 17 | 8 | | tabletIndications: | | | | | | | Restless leg | | | | | | + + + +---------+ + + | simvastatin | TAKE ONE TABLET BY | 90 | 2 | 11/26/19 | | | (ZOCOR) 10 mg | MOUTH ONCE NIGHTLY | tablet | | 17 | 8 | | tabletIndications: | | | | | | | Hyperlipidemia, | | | | | | | unspecified | | | | | | | hyperlipidemia type | | | | | | + + + +---------+ + + documented as of this encounter Plan of Treatment +--------+---------+ + + + | Date | Type | Specialty | Care Team | Description | +--------+---------+ + + + | 11/23/ | Office | Family Medicine | Ivy Sun | | | 2019 | Visit | | [address] | | | | | | [place] | | | | | | [id number] | | | | | | | | +--------+---------+ + + + documented as of this encounter Procedures + +--------+ + + + | Procedure Name | Priori | Date/Time | Associated Diagnosis | Comments | | | ty | | | | + +--------+ + + + | SLEEP STUDY | Routin | 12/31/2017 | | Results for this | | DIAGNOSTIC ONLY NO | e | 11:19 AM | | procedure are in the | | PAP | | PST | | results section. | + +--------+ + + + | SLEEP STUDY | Routin | 12/31/2017 | | Results for this | | DIAGNOSTIC ONLY NO | e | 11:19 AM | | procedure are in the | | PAP | | PST | | results section. | + +--------+ + + + documented in this encounter Results Sleep study diagnostic only (no PAP) (12/31/2017 11:19 AM PST) + + + | Narrative | Performed At | + + + | Reym[facility] Allen | | | Kahlil Haynes MD 12/31/2017 11:25 [facility] | | | [place] [address] | | | Polysomnogram Report on Lucie Miller performed on December 25 | | | 2017. Clinical Information: Lucie Miller is a 67 y.o. female | | | who underwent diagnostic nocturnal polysomnography on December 25 | | | 2017 on referral from Ivy GONZÁLESP because of obstructive | | | sleep apnea. Polysomnography performed in 2011 demonstrated an Apnea | | | Hypopnea Index of 13.5. Periodic limb movements were also noted on | | | that study. Technical Information: Please see technical data which is | | | attached. Definitions (The AASM Manual for the Scoring of Sleep and | | | Associated Events, Version 2.4; 2017): Apnea: There is a drop in the | | | peak signal excursion by 90% or greater of pre-event baseline using an | | | oronasal thermal sensor (diagnostic study), PAP device flow | | | (titration study), or an alternative apnea sensor (diagnostic study); | | | the duration of the 90% or greater drop in sensor signal is 10 seconds | | | or longer. Obstructive Apnea: Event associated with continued or | | | increased inspiratory effort throughout the entire period of absent | | | airflow. Central Apnea: Event associated with absent inspiratory | | | effort throughout the entire period of absent airflow. Mixed Apnea: | | | Event associated with absent inspiratory effort in the initial portion | | | of the event followed by resumption of inspiratory effort during the | | | second portion of the event. Hypopnea: The peak signal excursions drop | | | by greater than or equal to 30% of pre-event baseline using a | | | recommended or alternative airflow sensor and the duration of the >= | | | 30% drop in signal excursion is greater than or equal to 10 seconds | | | and there is a greater than or equal to a 4% oxygen desaturation from | | | pre-event baseline. Respiratory Event Related Arousal: A sequence of | | | breaths lasting 10 seconds or longer characterized by increasing | | | respiratory effort or by flattening of the inspiratory portion of the | | | nasal pressure (diagnostic study) or PAP device flow (titration study) | | | waveform leading to arousal from sleep when the sequence of breaths | | | does not meet criteria for an apnea or hypopnea. Sleep Architecture: | | | Lights out was recorded at 2352 hundred hours on December 25, 2017 | | | and lights on was recorded at 0840 hundred hours on December 26, 2017. The | | | latency to sleep onset was normal at 12 minutes. The patient slept | | | for 465 minutes out of 521 minutes of study time resulting an a sleep | | | efficiency that was normal at 89.3 %. The amount of N1 sleep was | | | normal at 1.4 % of the Total Sleep Time; the amount of N2 sleep was | | | elevated at 98.5 % of the Total Sleep Time; the amount of N3 sleep was | | | normal at 0.1 % of the Total Sleep Time; the amount of REM sleep was | | | low at 0% of the Total Sleep Time. Sleep in the following positions | | | was recorded: left lateral decubitus 2.7%, right lateral decubitus 0%, | | | supine 97.3%, prone 0%. Sleep was severely fragmented; the Arousal | | | Index was 68.6. The patient reported this to be better than a usual | | | night's sleep. Cardiopulmonary Monitoring: The heart rate averaged 104 | | | beats per minute. Mild rate variability was noted. The rhythm was | | | sinus tachycardia. In the course of the evening there were 4 | | | obstructive apneas, 0 mixed apneas, 1 central apneas, 423 hypopneas, | | | and 69 Respiratory Effort Related Arousals (RERA's). The Respiratory | | | Disturbance Index (RDI) was elevated at 64.1; the Apnea-Hypopnea Index | | | elevated at 55.2; the Apnea Index (AI) 0.6. The respiratory events | | | were significantly positional. The events were much more frequently | | | seen in the supine position (supine Apnea Hypopnea Index 56.5, | | | nonsupine Apnea Hypopnea Index 9.6).. The respiratory events | | | occasioned severe sleep fragmentation; the Respiratory Arousal Index | | | was 59.6. The cleve oxygen saturation was 78% and the patient spent | | | 31.2 minutes with an oxygen saturation of less than 88%. ETCO2 was not | | | significantly elevated. Limb Movement Monitoring: There were 0 | | | Periodic Limb Movements (PLMS Index of 0) of which 0 were associated | | | with arousals; the PLMS Arousal Index was normal at 0. Interpretation: | | | This polysomnogram is abnormal secondary to: Severe obstructive sleep | | | apnea is diagnosed. This is associated with oxygen desaturation. | | | This is also associated with severe sleep fragmentation.There is no | | | rapid eye movement sleep. The reason for this is not clear.The | | | cardiac rhythm is sinus tachycardia. Suggestions:1. The principles of | | | sleep hygiene should be reviewed with the patient.Polysomnographically | | | guided CPAP titration is advised. Reymundo Guillory Jr., MD, | | | FAAMedical DirectorMena Medical Center Sleep Disorders | | | [place], WAClinical | | | Custodial Operations Manager of MedicineHutchins, [place] | | | | | |In the course of the evening there were 4 obstructive apneas, 0 | | |mixed apneas, 1 central apneas, 423 hypopneas, and 69 Respiratory | | |Effort Related Arousals (RERA's). The Respiratory Disturbance | | |Index (RDI) was elevated at 64.1; the Apnea-Hypopnea Index | | |elevated at 55.2; the Apnea Index (AI) 0.6. The respiratory | | |events were significantly positional. The events were much more | | |frequently seen in the supine position (supine Apnea Hypopnea | | |Index 56.5, nonsupine Apnea Hypopnea Index 9.6).. | | | | | |The respiratory events occasioned severe sleep fragmentation; the | | |Respiratory Arousal Index was 59.6. | | | | | |The cleve oxygen saturation was 78% and the patient spent 31.2 | | |minutes with an oxygen saturation of less than 88%. | | | | | |ETCO2 was not significantly elevated. | | | | | |Limb Movement Monitoring: There were 0 Periodic Limb Movements | | |(PLMS Index of 0) of which 0 were associated with arousals; the | | |PLMS Arousal Index was normal at 0. | | | | | |Interpretation: This polysomnogram is abnormal secondary to: | | | | | |Severe obstructive sleep apnea is diagnosed. This is associated | | |with oxygen desaturation. This is also associated with severe | | |sleep fragmentation. | | |There is no rapid eye movement sleep. The reason for this is not | | |clear. | | |The cardiac rhythm is sinus tachycardia. | | | | | |Suggestions: | | |1. The principles of sleep hygiene should be reviewed with the | | |patient. | | |Polysomnographically guided CPAP titration is advised. | | | | | |Reymundo Guillory Jr., MD, [facility] | | |Mortgage Lender | | |[facility] | | |[facility] | | |[place] | | |Clinical transformation lead | | |[facility] | | |[place] | | + + + + + | Procedure Note | + + | Reymundo Guillory Jr., MD - 12/31/2017 11:19 AM PST [facility] | | Disorders [place], [place] [id number] Report on | | Lucie Miller performed on December 25, 2017.Clinical Information: Lucie Miller | | is a 67 y.o. female who underwent diagnostic nocturnal polysomnography on December 25, | | 2018 on referral from Ivy Sun [facility] because of obstructive sleep apnea. | | Polysomnography performed in 2011 demonstrated an Apnea Hypopnea Index of 13.5. | | Periodic limb movements were also noted on that study.Technical Information: Please see | | technical data which is attached.Definitions (The AASM Manual for the Scoring of Sleep | | and Associated Events, Version 2.4; 2017): Apnea: There is a drop in the peak signal | | excursion by 90% or greater of pre-event baseline using an oronasal thermal sensor | | (diagnostic study), PAP device flow (titration study), or an alternative apnea sensor | | (diagnostic study); the duration of the 90% or greater drop in sensor signal is 10 | | seconds or longer. Obstructive Apnea: Event associated with continued or increased | | inspiratory effort throughout the entire period of absent airflow. Central Apnea: Event | | associated with absent inspiratory effort throughout the entire period of absent | | airflow. Mixed Apnea: Event associated with absent inspiratory effort in the initial | | portion of the event followed by resumption of inspiratory effort during the second | | portion of the event. Hypopnea: The peak signal excursions drop by greater than or equal | | to 30% of pre-event baseline using a recommended or alternative airflow sensor and the | | duration of the >= 30% drop in signal excursion is greater than or equal to 10 seconds | | and there is a greater than or equal to a 4% oxygen desaturation from pre-event | | baseline. Respiratory Event Related Arousal: A sequence of breaths lasting 10 seconds or | | longer characterized by increasing respiratory effort or by flattening of the | | inspiratory portion of the nasal pressure (diagnostic study) or PAP device flow | | (titration study) waveform leading to arousal from sleep when the sequence of breaths | | does not meet criteria for an apnea or hypopnea.Sleep Architecture: Lights out was | | recorded at 2352 hundred hours on December 25, 2017 and lights on was recorded at 0840 | | hundred hours on December 26, 2017. The latency to sleep onset was normal at 12 minutes. The | | patient slept for 465 minutes out of 521 minutes of study time resulting an a sleep | | efficiency that was normal at 89.3 %. The amount of N1 sleep was normal at 1.4 % of the | | Total Sleep Time; the amount of N2 sleep was elevated at 98.5 % of the Total Sleep | | Time; the amount of N3 sleep was normal at 0.1 % of the Total Sleep Time; the amount of | | REM sleep was low at 0% of the Total Sleep Time.Sleep in the following positions was | | recorded: left lateral decubitus 2.7%, right lateral decubitus 0%, supine 97.3%, prone | | 0%.Sleep was severely fragmented; the Arousal Index was 68.6.The patient reported this | | to be better than a usual night's sleep.Cardiopulmonary Monitoring: The heart rate | | averaged 104 beats per minute. Mild rate variability was noted. The rhythm was sinus | | tachycardia.In the course of the evening there were 4 obstructive apneas, 0 mixed | | apneas, 1 central apneas, 423 hypopneas, and 69 Respiratory Effort Related Arousals | | (RERA's). The Respiratory Disturbance Index (RDI) was elevated at 64.1; the | | Apnea-Hypopnea Index elevated at 55.2; the Apnea Index (AI) 0.6. The respiratory events | | were significantly positional. The events were much more frequently seen in the supine | | position (supine Apnea Hypopnea Index 56.5, nonsupine Apnea Hypopnea Index 9.6).. The | | respiratory events occasioned severe sleep fragmentation; the Respiratory Arousal Index | | was 59.6.The cleve oxygen saturation was 78% and the patient spent 31.2 minutes with an | | oxygen saturation of less than 88%.ETCO2 was not significantly elevated.Limb Movement | | Monitoring: There were 0 Periodic Limb Movements (PLMS Index of 0) of which 0 were | | associated with arousals; the PLMS Arousal Index was normal at 0.Interpretation: This | | polysomnogram is abnormal secondary to:Severe obstructive sleep apnea is diagnosed. | | This is associated with oxygen desaturation. This is also associated with severe sleep | | fragmentation.There is no rapid eye movement sleep. The reason for this is not | | clear.The cardiac rhythm is sinus tachycardia.Suggestions:1. The principles of sleep | | hygiene should be reviewed with the patient.Polysomnographically guided CPAP titration | | is advised.Reymundo Guillory Jr., MD, [facility] Director[facility] | | Disorders CenterProDoctors HospitalWalNewport, WAClinical Associate | | Professor of MedicineH[place], [place] | |Polysomnographically guided CPAP titration is advised. | | | |Reymundo Guillory Jr., MD, [facility] | |Mortgage Lender | |[facility] | |[facility] | |[place], [place] | |Clinical transformation lead | |[facility] | |[place], [place] | + + documented in this encounter Visit Diagnoses + + | Diagnosis | + + | Obstructive sleep apnea Obstructive sleep apnea (adult) (pediatric) | + + | Restless legs syndrome Restless legs syndrome (RLS) | + + documented in this encounter"
--- OUTSIDE RECORDS SUMMARY | ~2019-10-23 | XMS | Encounter Summary ---
Demographics + + + | Address | [address] | | | [place] [address] | + + + | Home Phone | | + + + | Preferred Language | Unknown | + + + | Marital Status | Single | + + + | Restorationist Affiliation | 1077 | + + + | Race | Unknown | + + + | Ethnic Group | Unknown | + + + Author + + + | Author | [facility] | | | and Rainerana | + + + | Organization | [facility] | | | and [place]ainerana | + + + | Address | Unknown | + + + | Phone | Unavailable | + + + Support + + + + + | Name | Relationship | Address | Phone | + + + + + | Aleks Noguera | BRYANT | [address] | | | | | [place], [place] | | | | | [address] | | + + + + + | Jelena Hill | ECON | [place] | | | | | [address] | | + + + + + Care Team Providers + +------+ + | Care Salesperson New Cars Name | Role | Phone | + +------+ + | Ivy Sun | PCP | | + +------+ + Reason for Visit + + + | Reason | Comments | + + + | Diabetes | Impaired fasting glucose | + + + Encounter Details +--------+---------+ + + + | Date | Type | Department | Care Team | Description | +--------+---------+ + + + | 07/22/ | Office | 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 (Primary | | | | [address] | [place], [place] | Dx); Anxiety; Flu | | | | [place] | [address] | vaccine need | | | | [address] | | | | | | [phone] | | | +--------+---------+ + + + Social History [...] + + + | Blood Pressure | 124/84 | 07/22/2019 10:53 AM | | | | | PDT | | + + + + + | Pulse | 98 | 07/22/2019 10:53 AM | | | | | PDT | | + + + + + | Temperature | 36.7 C (98.1 F) | 07/22/2019 10:53 AM | | | | | PDT | | + + + + + | Respiratory Rate | 24 | 07/22/2019 10:53 AM | | | | | PDT | | + + + + + | Oxygen Saturation | 96% | 07/22/2019 10:53 AM | | | | | PDT | | + + + + + | Inhaled Oxygen | - | - | | | Concentration | | | | + + + + + | Weight | 138.8 kg (306 lb) | 07/22/2019 10:53 AM | | | | | PDT | | + + + + + | Height | 170.2 cm (5' 7.01") | 07/22/2019 10:53 AM | | | | | PDT | | + + + + + | Body Mass Index | 47.91 | 07/22/2019 10:53 AM | | | | | PDT | | + + + + + documented in this encounter Patient Instructions Patient Instructions Sharita Burk, Table Games Dealer - 07/22/2019 10:45 AM PDTIf blo od pressure gets above 140's 150's call or send me a my chart message. documented in this encounter Progress Notes Ivy Sun ARNP - 07/22/2019 10:45 AM PDTFormatting of this note might be differen t from the original. Lucie Miller is a 69 y.o. female Chief Complaint: Diabetes (Impaired fasting glucose) HPI Patient present to clinic today for follow up on prediabetes. Prediabetes Management: Patient presents today for her diabetic follow up. She is a past tobacco user. Medication management below; Home FBG testing: Not checking. How many times a day? never. The patient's last dental cleaning was 06/08/2019 and is not due for a dental cleaning. Her last in office DM Foot Exam was Unknown. Today she reports feeling well over-all. Hypoglycemic symptoms: Denies sweats, nausea, confusion, and weakness. Hyperglycemic symptoms: Denies polyuria, polydipsia, and blurred vision. No infections, ulcerations, or sores. Not following her diabetic diet but does understands dietary principles. Exercises no. Body mass index is 47.91 kg/m. Wt Readings from Last 3 Encounters: 07/22/19 (!) 138.8 kg (306 lb) 06/03/19 132.8 kg (292 lb 12.3 oz) 04/09/19 130.3 kg (287 lb 4.2 oz) BP: 124/84 The patients last A1C is Lab Results Component Value Date HBA1C 6.0 (A) 07/22/2019 Lab Results Component Value Date CHOL 177 07/30/2017 CHOL 170 08/28/2016 Lab Results Component Value Date HDL 54 07/30/2017 HDL 63 08/28/2016 Lab Results Component Value Date LDL 104 07/30/2017 LDL 90 08/28/2016 No results found for: LDLDIRECT Lab Results Component Value Date TRIG 93 07/30/2017 TRIG 87 08/28/2016 Lab Results Component Value Date CHOLHDL 2.7 09/30/2018 CHOLHDL 3.3 07/30/2017 Lab Results Component Value Date TSH 2.47 08/28/2016 CMP-WNL except elevated glucose of Lab Results Component Value Date GLU 117 (H) 07/22/2019 GLU 102 11/03/2018 Albumin/ Creatinine ratio- Lab Results Component Value Date MALBCRERATIO 3 07/22/2019 Pulmonary Embolism/Anxiety She is recovering from her recent PE. She is taking her Eliquis. She is doing well. She fin ds her anxiety is bothering her a bit more than usual. Taking her paxil. Not wanting to garcía ge her dose. Trying to get out of the house more often. PREVENTIVE CARE/PRIOR VISITS 1. Any recommendations from Health Maintenance: Flu Preventative Services TOPIC LAST DONE NEXT DUE Adult Annual Wellness Visit 10/01/2018 10/01/2019 Hepatitis C Screening 07/30/2017 Colorectal Cancer Screening (Colonoscopy) 05/22/2011 05/22/2021 Vaccine: Influenza 07/22/2019 Breast Cancer Screening (Ages 50-74) 10/03/2018 10/03/2020 Vaccine: Dtap/Tdap/Td 07/24/2016 07/24/2026 Vaccine: Pneumococcal 65+ Low/Medium Risk 10/01/2018 Vaccine: Zoster 05/13/2013 07/08/2013 2. Any immunizations necessary: Flu Immunization History Administered Date(s) Administered INFLUENZA 65 Y OR >, TRIVALENT HIGH-DOSE 10/01/2018, 07/22/2019 INFLUENZA PF 18 Y OR >,TRIVALENT RECOMBINANT 08/25/2012, 10/14/2013 INFLUENZA PF 4Y OR >,QUAD DERIVED FROM TISS-CULT 07/30/2017 INFLUENZA PF QUAD(PED/ADOL/ADULT),PSKT or VIAL 11/10/2014, 08/17/2015, 07/24/2016 PNEUMOCOCCAL CONJUGATE 13-VALENT (PCV13) 07/30/2017 PNEUMOCOCCAL POLYSACCHARIDE 23-VALENT (PPSV23) 08/25/2012, 10/01/2018 TDAP, (ADOL/ADULT) 01/15/2007, 07/24/2016 ZOSTER, 1 DOSE (ZOSTAVAX) 05/13/2013 3. Has patient been involved in medical events/hospitalizations since their last visit: No No Known Allergies Medications: Patient Reported Taking Dosage Blood Glucose Calibration (OT ULTRA/FASTTK CNTRL SOLN) SOLN (Taking) Use to calibrate glu cometer Number of times this order has been changed since signin Order Audit Reading Blood Glucose Monitoring Suppl (ONE TOUCH ULTRA SYSTEM KIT) w/Device KIT (Taking) Use to check blood sugars 3 times weekly. Number of times this order has been changed since signin Order Audit Reading cholecalciferol (CHOLECALCIFEROL) 2000 units TABS (Taking) Take 2,000 Units by mouth Tresa y. ELIQUIS 5 MG tablet (Taking) Take 1 tablet by mouth 2 times daily. Number of times this order has been changed since signin Order Audit Reading ferrous sulfate 325 mg tablet (Taking) TAKE ONE TABLET BY MOUTH TWICE A DAY Number of times this order has been changed since signin Order Audit Reading gabapentin (NEURONTIN) 600 MG tablet (Taking) TAKE ONE TABLET BY MOUTH NIGHTLY Number of times this order has been changed since signin Order Audit Reading glucose blood test strips (ONE TOUCH ULTRA TEST) strip (Taking) Test fasting 3 times w eekly, and check 30 min pre and 2 hours post main meal Number of times this order has been changed since signin Order Audit Reading nortriptyline (PAMELOR) 10 MG capsule (Taking) TAKE 3 CAPSULES BY MOUTH NIGHTLY Number of times this order has been changed since signin Order Audit Reading ONE TOUCH ULTRASOFT LANCETS MISC (Taking) Use to check blood sugars 3 times a week Number of times this order has been changed since signin Order Audit Reading oxybutynin (DITROPAN-XL) 10 MG 24 hr tablet (Taking) Take 1 tablet by mouth Daily. Number of times this order has been changed since signin Order Audit Reading PARoxetine (PAXIL) 40 MG tablet (Taking) TAKE ONE TABLET BY MOUTH DAILY Number of times this order has been changed since signin Order Audit Reading rOPINIRole (REQUIP) 2 MG tablet (Taking) TAKE ONE TABLET BY MOUTH NIGHTLY Number of times this order has been changed since signin Order Audit Reading simvastatin (ZOCOR) 10 mg tablet (Taking) TAKE ONE TABLET BY MOUTH ONCE NIGHTLY Number of times this order has been changed since signin Order Audit Reading tiZANidine (ZANAFLEX) 2 MG tablet (Taking) TAKE ONE TABLET (2MG) BY MOUTH EVERY 6 TO 8 HO URS NEEDED FOR MUSCLE SPASMS. Number of times this order has been changed since signin Order Audit Reading UNABLE TO FIND (Taking) Med Name: Resmed AirSense 10 autoset CPAP: 13-20cm while sleeping . UNCODED MEDICATION (Taking) Diagnosis: Obstructive Sleep Apnea ICD-9: 327.23 Length of Need: 99 Months Number of times this order has been changed since signin Order Audit Reading UNCODED MEDICATION (Taking) Wear at all times while sleeping. Number of times this order has been changed since signin Order Audit Reading Past Medical History She has a past medical history of Abnormal glandular Papanicolaou smear of cervix, Anxiety state, unspecified, Aortic root enlargement (HCC) (01/13/2014), Bronchitis, not specified as acute or chronic, Cataract (), Depressed, Disorder of bone and cartilage, unspecified, Eczema, Elevated hemoglobin A1c (10/31/2018), Encounter for hearing conservation and treatmen t, H/O diagnostic tests (12/14/2013), Hearing loss, History of compression fracture of spine (08/17/2015), Hyperlipidemia, Insomnia, unspecified, Menopausal and perimenopausal disorder (2003), OAB (overactive bladder) (11/28/2016), KAMERON (obstructive sleep apnea), Osteoporosis, Ot her seborrheic keratosis, Prediabetes (12/09/2013), Restless leg syndrome, Rosacea ( 3), Rotator cuff (capsule) sprain, Routine gynecological examination, Seborrheic dermatitis (10/14/2013), Smoker, and Sprain of ankle, unspecified site. Past Surgical History She has a past surgical history that includes lumbar laminectomy (1991); gastroplasty (1985 ); Bunionectomy (Right, 1986); Toe Surgery; Endometrial biopsy (2001); Knee arthroscopy (Lef t, 2005); Total knee arthroplasty (Left, 07/15/13); Dilation and curettage of uterus (06/03/20 14); Cholecystectomy (1986); and Dilation and curettage of uterus (N/A, 11/03/2018). Family History: Her family history includes Alzheimer's disease in her mother; Diabetes in her maternal aun t and maternal uncle; Heart attack in her father; Heart disease in her maternal grandfather, paternal grandmother, and paternal uncle; Heart surgery in her father; Lung cancer in her p aternal uncle; No known problems in her paternal aunt and paternal aunt; Obesity in her mate rnal grandmother; Other (see comment) in her maternal grandmother; Stroke in her father, mat ernal grandfather, and paternal grandfather; Thyroid disease in her sister. 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 Respiratory: Positive for shortness of breath. Negative for cough and chest tightness. Cardiovascular: Negative for chest pain and palpitations. Gastrointestinal: Negative for abdominal pain, constipation and diarrhea. Genitourinary: Negative for dysuria, frequency and urgency. Objective: Vitals: 07/22/19 1053 BP: 124/84 Pulse: 98 Resp: 24 Temp: 36.7 C (98.1 F) TempSrc: Temporal SpO2: 96% Weight: (!) 138.8 kg (306 lb) Height: 1.702 m (5' 7.01") Physical Exam Constitutional: She is oriented to person, place, and time. She appears well-developed and well-nourished. No distress. No pedal edema HENT: Head: Normocephalic and atraumatic. Eyes: Conjunctivae are normal. Right eye exhibits no discharge. Left eye exhibits no discha rge. Neck: Neck supple. No JVD present. Carotid bruit is not present. Cardiovascular: Normal rate, regular rhythm and [...] is normal. Nursing note and vitals reviewed. Ortho Exam Results for orders placed or performed in visit on 07/22/19 POCT Hemoglobin A1c Result Value Ref Range Hemoglobin A1C, POC 6.0 (A) 0.0 - 5.6 % Assessment: 1. Impaired fasting glucose POCT Hemoglobin A1c 2. Anxiety 3. Flu vaccine need Influenza *PF 65 yr or >, Trivalent High-Dose Plans: 1. Impaired fasting glucose Reviewed A1c with Lucie today. Her weight is up but A1C is stable Discussed making sure she is limiting her carbohydrate intake and walk as tolerated. Keep well hydrated - Check glucose fasting and 2 hrs after meals -. Return if you experience significant glucose lows or highs -. Labs and A1c reviewed - POCT Hemoglobin A1c 2. Anxiety Discussed her anxiety and encouraged her to slowly start increasing her outings and set goa ls for herself. She agrees. If it gets worse, we may need to change her medication dosing. 3. Flu vaccine need After obtaining informed consent, the immunization is given by Sharita Burk CMA. - Influenza *PF 65 yr or >, Trivalent High-Dose Follow-up: Return in about 4 months (around 11/21/2019) for anxious depression. Care instructions and warning signs were discussed. Medications per orders. Side effects discussed. Labs and investigations per orders. Sandra Sandhu am acting as a scribe on behalf of, and in the pres ence of JUSTYN Rodriges. Electronically signed by: Sandra Chirinos 07/22/19 10:44 IIvy ARNP personally performed the services described in this documentati on, as scribed by RHODA Neri in my presence, and are both accurate and complete. Electronically Signed by: JUSTYN Babcock 07/23/19 10:36 documented in th is encounter Plan of [...] [place] | | | | | | [phone] | | | | | | | | +--------+---------+ + + + documented as of this encounter Procedures + +--------+ + + + | Procedure Name | Priori | Date/Time | Associated Diagnosis | Comments | | | ty | | | | + +--------+ + + + | POCT HEMOGLOBIN A1C | Routin | 07/22/2019 | Impaired fasting | Results for this | | | e | 11:21 AM | glucose | procedure are in the | | | | PDT | | results section. | + +--------+ + + + documented in this encounter Results POCT Hemoglobin A1c (07/22/2019 11:21 AM PDT) + +---------+ + + + | Component | Value | Ref Range | Performed | Pathologist | | | | | At | Signature | + +---------+ + + + | Hemoglobin | 6.0 (A) | 0.0 - 5.6 % | | | | A1C, POC | | | | | + +---------+ + + + + + | Specimen | + + | | + + documented in this encounter Visit Diagnoses + + | Diagnosis | + + | Impaired fasting glucose - Primary | + + | Anxiety Anxiety state, unspecified | + + | Flu vaccine need Need for prophylactic vaccination and inoculation against influenza | + + documented in this encounter
--- OUTSIDE RECORDS SUMMARY | ~2019-10-23 | XMS | Encounter Summary ---
Demographics + + + | Address | [address] | | | [place] [address] | + + + | Home Phone | | + + + | Preferred Language | Unknown | + + + | Marital Status | Single | + + + | Episcopalian Affiliation | 1077 | + + + | Race | Unknown | + + + | Ethnic Group | Unknown | + + + Author + + + | Author | [facility] | | | and Rainerana | + + + | Organization | [facility] | | | and Rainerana | [...] [place], [place] | | | | | [address] | | + + + + + | Jelena Hill | ECON | [place] | | | | | [address] | | + + + + + Care Team Providers + +------+ + | Care Speedometer Mechanic Name | Role | Phone | + +------+ + | Ivy Sun | PCP | | + +------+ + Reason for Visit + + + | Reason | Comments | + + + | Referral | | + + + Encounter Details +--------+ + + + + | Date | Type | Department | Care Team | Description | +--------+ + + + + | 09/19/ | Telephone | [facility] | Ivy Sun | Referral | | 2016 | | [facility]IC[facility] [place] | JUSTYN Keating [address] | | | | | [address] | [place], [place] | | | | | [place], [place] | [address] | | | | | [address] | | | | | | [phone] | | | +--------+ + + + [...] | + + + +--------+ + + +---+---+ + | Smokeless Tobacco: | | | Quit: | | Never Used | | | 11/23/19 | | | | | 15 | + +---+---+ + + + +---------+ + | Alcohol [...] [place] | | | | | | [id number] | | | | | | | | +--------+---------+ + + + documented as of this encounter Visit Diagnoses Not on filedocumented in this encounter"
--- OUTSIDE RECORDS SUMMARY | ~2019-10-23 | XMS | Encounter Summary ---
Demographics + + + | Address | [address] | | | [place] [address] | + + + | Home Phone | | + + + | Preferred Language | Unknown | + + + | Marital Status | Single | + + + | Congregational Affiliation | 1077 | + + + | Race | Unknown | + + + | Ethnic Group | Unknown | + + + Author + + + | Author | [facility] | | | and Rainerana | + + + | Organization | [facility] | | | and [...] [place], [place] | | | | | [address] | | + + + + + | Jelena Hill | ECON | [place] | | | | | [address] | | + + + + + Care Team Providers + +------+ + | Care Clinical Partner Name | Role | Phone | + +------+ + | Ivy Sun | PCP | | + +------+ + Reason for Visit + + + | Reason | Comments | + + + | Herpes Zoster | | + + + Encounter Details +--------+ + + + + | Date | Type | Department | Care Team | Description | +--------+ + + + + | 05/13/ | Telephone | [facility] | Ivy Sun | Herpes Zoster | | 2012 | | MEDICINE [place] | Rishabh, JUSTYN [address] | | | | | [address] | [place] | | | | | [place] | [id number] | | | | | [address] | | | | | | [phone] | | | +--------+ + + + [...] [place] | | | | | | [address] | | | | | | | | +--------+---------+ + + + documented as of this encounter Visit Diagnoses Not on filedocumented in this encounter"
--- OUTSIDE RECORDS SUMMARY | ~2019-10-23 | XMS | Encounter Summary ---
Demographics + + + | Address | [address] | | | [place] [address] | + + + | Home Phone | | + + + | Preferred Language | Unknown | + + + | Marital Status | Single | + + + | Spiritism Affiliation | [id number] | + + + | Race | Unknown | + + + | Ethnic Group | Unknown | + + + Author + + + | Author | [facility] | | | and [facility] | + + + | Organization | [facility] | | | and [place] [...] [place], [place] | | | | | [address] | | + + + + + | [address] | ECON | [place], [place] | | | | | [address] | | + + + + + Care Team Providers + +------+ + | Care Shactor Name | Role | Phone | + +------+ + | Ivy Sun | PCP | | + +------+ + Reason for Visit +--------+ + | Reason | Comments | +--------+ + | Apnea | | +--------+ + Encounter Details +--------+---------+ + + + | Date | Type | Department | Care Team | Description | +--------+---------+ + + + | 08/11/ | Office | [facility] | Reymundo Guillory | Restless legs | | 2011 | Visit | SLEEP DISORDER [address] | MD [address] | syndrome (RLS); | | | | [address] | [address] | Shift work sleep | | | | [place] [address] | [place] [address] | disorder; | | | | [phone] | [phone] | Obstructive sleep | | | | | | apnea; Restless legs | | | | | | syndrome | +--------+---------+ + + + Social History [...] + + + | Blood Pressure | 108/66 | 08/11/2012 8:10 AM | | | | | PDT | | + + + + + | Pulse | 105 | 08/11/2012 8:10 AM | | | | | PDT | | + + + + + | Temperature | - | - | | + + + + + | Respiratory Rate | 16 | 08/11/2012 8:10 AM | | | | | PDT | | + + + + + | Oxygen Saturation | - | - | | + + + + + | Inhaled Oxygen | - | - | | | Concentration | | | | + + + + + | Weight | 121.6 kg (268 lb) | 08/11/2012 8:10 AM | | | | | PDT | | + + + + + | Height | 170.2 cm (5' 7") | 08/11/2012 8:10 AM | | | | | PDT | | + + + + + | Body Mass Index | 41.97 | 08/11/2012 8:10 AM | | | | | PDT | | + + + + + documented in this encounter Patient Instructions Patient Instructions Reymundo Guillory Jr., MD - 08/11/2012 8:21 AM PDTOn work days, keep y our environment as dark as possible after getting off of work (wear blue blocking sunglasses on the way home if necessary). Go to bet as soon as you can after work. Keep your home dark and quiet. Get as much light as possible in the evening. Consider a nap prior to work. On off days, bedtime should be very late (3-4am) and sleep until noon or so (it is actually ideal if you can keep the same sleep wake schedule on off days as on work days - but most p eople can't do this). Keep your environment dark until noon. Get as much light in the evenin g as possible. A cup or two of coffee or Mountain Dew on the way to work can be helpful. If you can take several short 10 minute naps on your breaks at work, that will be helpful. Wear CPAP every night. documented in this encounter Progress Notes Reymundo Guillory Jr., MD - 08/11/2012 8:57 AM PDTFormatting of this note might be differen t from the original. Lucie Miller underwent attended polysomnography on July 08, 2012 which revealed a la tency to sleep onset of 33 minutes and a sleep efficiency of 85.7%. The percentages of the v arious stages of sleep were Abnormal. The amount of N2 sleep was high and the amount of REM sleep was low. The arousal index was 84.5 which is high. The Respiratory Disturbance Index w as 21.8; the Apnea-Hypopnea Index was 13.5; and the Apnea-Index was 2.6. The Respiratory Angus usal Index was 19.4. The cleve oxygen saturation recorded during sleep was 88.0%. The patie nt spent 1.2 minutes with an oxygen saturation of less than 88%. There were 815 of Periodic Limb Movements and the PLMS Arousal Index was 60.9. I've reviewed these results with the elida benites. The patient, in order of importance, has the following sleep issues: 1) Shift Work Sleep Di sorder; 2) RLS/PLMS; and 3) KAMERON. I've discussed all 3 in detail with the patient and I am siddiqui ggesting the followin) "Compromise" Sleep-wake schedule to help with shift work (see patient instructions). 2) Check ferritin. If less than 50, iron supplementation (will consider IV infusion) to get ferritin above 50. If RLS persist, then add pramipexole. 3) CPAP 5-14cm while sleeping. Patient Instructions On work days, keep your environment as dark as possible after getting off of work (wear rodo e blocking sunglasses on the way home if necessary). Go to bet as soon as you can after work . Keep your home dark and quiet. Get as much light as possible in the evening. Consider a nap prior to work. On off days, bedtime should be very late (3-4am) and sleep until noon or so (it is actually ideal if you can keep the same sleep wake schedule on off days as on work days - but most p eople can't do this). Keep your environment dark until noon. Get as much light in the evenin g as possible. A cup or two of coffee or Mountain Dew on the way to work can be helpful. If you can take several short 10 minute naps on your breaks at work, that will be helpful. Wear CPAP every night. 15 minutes was spent face to face with the patient counseling. F/u in 1 week. Ferritin ordered CPAP prescribed. documented in t his encounter Plan of Treatment +--------+---------+ + + + | Date | Type | Specialty | Care Team | Description | +--------+---------+ + + + | 11/23/ | Office | Family Medicine | Ivy Sun | | | 2019 | Visit | | Rishabh, [address] | | | | | | [place] | | | | | | [id number] | | | | | | | | +--------+---------+ + + + documented as of this encounter Results Ferritin (08/11/2012 10:26 AM PDT) + + + + + + | Component | Value | Ref Range | Performed | Pathologist | | | | | At | Signature | + + + + + + | [facility] | 21.9Comment: Testing | 11.0 - 306.9 | [facility] | | | | performed on the [facility] | ng/mL | [facility] | | | | [facility] | | MEDICAL | | | | Analyzer. | | C[facility] - | | | | | | LABORATORY | | + + + + + + + + | Specimen | + + | Blood specimen | | (specimen) | + + + + + + + | Performing | Address | City/[facility]/Zipcode | Phone Number | | Organization | | | | + + + + + | [facility] | [address] | [place] | [phone] | | [facility] | | [phone] | | | - LABORATORY | | | | + + + + + | [facility] | [address] | [place] | | | [facility] | | [address] | | | - LABORATORY | | | | + + + + + documented in this encounter Visit Diagnoses + + | Diagnosis | + + | Restless legs syndrome (RLS) | + + | Shift work sleep disorder Circadian rhythm sleep disorder, shift work type | + + | Obstructive sleep apnea Obstructive sleep apnea (adult) (pediatric) | + + | Restless legs syndrome Restless legs syndrome (RLS) | + + documented in this encounter
--- OUTSIDE RECORDS SUMMARY | ~2019-10-23 | XMS | Encounter Summary ---
Demographics + + + | Address | [address] | | | [place] [address] | + + + | Home Phone | | + + + | Preferred Language | Unknown | + + + | Marital Status | Single | + + + | Protestant Affiliation | 1077 | + + + | Race | Unknown | + + + | Ethnic Group | Unknown | + + + Author + + + | Author | [facility] | | | and Rainerana | + + + | Organization | [facility] | | | and Rainerana [...] [place], [place] | | | | | [address] | | + + + + + | Jelena [place] | ECON | [place] | | | | | [address] | | + + + + + Care Team Providers + +------+ + | Care Microfiche Duplicator Name | Role | Phone | + +------+ + | Ivy Sun | PCP | | + +------+ + Reason for Referral Evaluate & Treat (Routine) +--------+ + + + + + | Status | Reason | Specialty | Diagnoses / | Referred By | Referred To | | | | | Procedures | Contact | Contact | +--------+ + + + + + | Closed | Specialty | Neurosurgery | Diagnoses | Dino, | Roya, | | | Services | | T12 | Ivy Keating, | Lorenzo Galeana DO | | | Required | | compression | [address] | [address] | | | | | fracture, | [address] | [address] | | | | | initial | [place], | [place] | | | | | encounter | [place] [address] | [address] Phone: | | | | | ([facility]) | Phone: | [phone] | | | | | | [phone] | Fax: | | | | | | Fax: | [phone] | | | | | | [phone] | | +--------+ + + + + + Diagnostic/Screening (Routine) +--------+--------+ + + + + | Status | Reason | Specialty | Diagnoses / | Referred By | Referred To | | | | | Procedures | Contact | Contact | +--------+--------+ + + + + | Closed | | Radiology | Diagnoses | Sun, | [facility] | | | | | T12 | Ivy L, | [address] | | | | | compression | [address] | [place], | | | | | fracture, | [address] | [place] | | | | | initial | [place], | [address] | | | | | encounter | [place] [address] | Phone: | | | | | (HCC) | Phone: | [phone] | | | | | Procedures | [phone] | Fax: | | | | | MRI Thoracic | Fax: | [phone] | | | | | Spine w wo | [phone] | | | | | | Contrast | | | +--------+--------+ + + + + Evaluate & Treat (Routine) +--------+ + + + + + | Status | Reason | Specialty | Diagnoses / | Referred By | Referred To | | | | | Procedures | Contact | Contact | +--------+ + + + + + | Closed | Specialty | Endocrinology | Diagnoses | Sun, | [facility] | | | Services | | Osteopenia | Ivy Keating, | [facility] | | | Required | | | [address] | MEDICAL | | | | | | [address] | [address] | | | | | | [place], | [place] | | | | | | [place] [address] | [place], [place] | | | | | | Phone: | [address] | | | | | | [phone] | Phone: | | | | | | Fax: | [phone] | | | | | | [phone] | Fax: | | | | | | | [phone] | +--------+ + + + + + Reason for Visit + + + | Reason | Comments | + + + | Back Pain | | + + + Encounter Details +--------+---------+ + + + | Date | Type | Department | Care Team | Description | +--------+---------+ + + + | 07/24/ | Office | [facility] | Sun[facility] | Osteopenia (Primary | | 2016 | Visit | [facility] | JUSTYN Keating [address] | Dx); T12 compression | | | | [address] | [address] [place] | fracture, initial | | | | [place], [place] | [address] | encounter (HCC); | | | | [address] | | Derangement of right | | | | [phone] | | knee; Decreased | | | | | | GFR; Need for Tdap | | | | | | vaccination; Need | | | | | | for influenza | | | | | | vaccination | +--------+---------+ + + + Social History + + + +--------+ + | Tobacco Use | Types | Packs/Day | Years | Date | | | | | Used | | + + + +--------+ + | Former Smoker | Cigarettes | 0.5 | 15 | Quit: 11/19/2014 | + + + +--------+ + + +---+---+ + | Smokeless Tobacco: | | | Quit: | | Never Used | | | 11/23/19 | | | | | 15 | + +---+---+ + + + +---------+ + | Alcohol Use | Drinks/Week | oz/Week | Comments | + + +---------+ + | No | | | rarely | + + +---------+ + + + [...] + + + | Blood Pressure | 110/74 | 07/24/2016 9:08 AM | | | | | PDT | | + + + + + | Pulse | 81 | 07/24/2016 9:08 AM | | | | | PDT | | + + + + + | Temperature | 36.6 C (97.9 F) | 07/24/2016 9:08 AM | | | | | PDT | | + + + + + | Respiratory Rate | 16 | 07/24/2016 9:08 AM | | | | | PDT | | + + + + + | Oxygen Saturation | 98% | 07/24/2016 9:08 AM | | | | | PDT | | + + + + + | Inhaled Oxygen | - | - | | | Concentration | | | | + + + + + | Weight | 135.2 kg (298 lb) | 07/24/2016 9:08 AM | | | | | PDT | | + + + + + | Height | - | - | | + + + + + | Body Mass Index | 46.67 | 04/04/2016 2:27 PM | | | | | PDT | | + + + + + documented in this encounter Patient Instructions Patient Instructions Villa Lynn, Store Group Manager - 07/24/2016 9:58 AM PDTStop fosa max. Get xray done. MRI ordered, will call with scheduled appointment. Referral placed to endocrinology, they will call patient to schedule an appointment. Ibuprofen 600 mg every 6 hours no longer than a couple weeks. Return for fasting labs. Electronically signed by Sandra Morris at 10:03 AM PDT documented in this encounter Progress Notes Norbert Lopes RN - 07/24/2016 4:25 PM PDT Lucie Miller is a 66 y.o. female Chief Complaint: Back Pain HPI Back Pain Patient presents for evaluation of back pain. On June 23 or she was lifting a friend and hurt her low back. It is a dull, aching pain on the right side of her spine and radiate s around to her low abdomen. She denies saddle paresthesias or loss of bowel or bladder cont rol. Activities including bending forward, backward, lying down, sitting standing, and walki ng makes it worse. Taking ibuprofen 800mg q 8 hours helped a little. She was seen Jul 16 in Urgent Care in [place]. A new fracture was found at T12. She was prescribed robaxin and lidocaine patches which provided some, but not complete relief. Right knee pain: She sustained a fall onto her right knee on July 13. It catches and pops. She wanted t o discuss this at her Urgent Care visit, but was limited to one problem. PREVENTIVE CARE/PRIOR VISITS 1. Any recommendations from Health Maintenance: Influenza, tdap Preventative Services TOPIC LAST DONE NEXT DUE Influenza Imm (Yearly) 08/17/2015 06/28/2016 Colon Cancer Screening (Colonoscopy Every 10 Years 50-75) 05/20/2011 05/20/2021 Cervical Cancer Screening (Pap Every 3 Years 21-65 ) 05/05/2013 05/05/2016 Dtap/Tdap/Td Imm 01/15/2007 01/15/2017 Hpv Imm 2. Any immunizations necessary: influenza, tdap Immunization History Administered Date(s) Administered INFLUENZA, QUADRIVALENT PRESERVATIVE FREE (PED/ADOL/ADULT) 11/10/2014, 08/17/2015, 06/29 INFLUENZA, TRIVALENT PRESERVATIVE FREE (PED/ADOL/ADULT) 08/25/2012, 10/14/2013 PNEUMOCOCCAL POLYSACCHARIDE 23-VALENT (PPSV23) 08/25/2012 TDAP, (ADOL/ADULT) 01/15/2007, 07/24/2016 3. Has patient been involved in medical events/hospitalizations since their last visit: ye s, Urgent Care in [place], [place] No Known Allergies Medications: Patient Reported Taking Dosage alendronate (FOSAMAX) 70 mg tablet (Taking/Discontinued) Take 1 tablet by mouth Once a we ek. Number of times this order has been changed since signin Order [place] [place] aspirin (ASPIRIN ADULT LOW STRENGTH) 81 MG EC tablet (Taking) Take 81 mg by mouth Daily. Number of times this order has been changed since signin Order [facility] [place] Calcium Carb-Cholecalciferol (CALCIUM 1000 + D) 1000-800 MG-UNIT TABS (Taking) Take 1 tab let by mouth Daily. Number of times this order has been changed since signin Order [facility] [place] FreeStyle Lancets MISC (Taking) Test blood sugar twice daily. 790.29 Number of times this order has been changed since signin Order [place] [place] gabapentin (NEURONTIN) 600 MG tablet (Taking) Take 1 tablet by mouth nightly. glucose blood test strips (FREESTYLE LITE) strip (Taking) Test blood sugar twice daily . 790.29 Number of times this order has been changed since signin Order [place] [place] lisinopril (PRINIVIL, ZESTRIL) 10 mg tablet (Taking) TAKE ONE TABLET BY MOUTH EVERY MORNI NG metFORMIN (GLUCOPHAGE) 500 mg tablet (Taking) Take 1 tablet by mouth daily (with breakfas t). nortriptyline (PAMELOR) 10 MG capsule (Taking) TAKE 3 CAPSULES BY MOUTH NIGHTLY PARoxetine (PAXIL) 40 MG tablet (Taking) TAKE ONE TABLET BY MOUTH DAILY rOPINIrole (REQUIP) 2 MG tablet (Taking) TAKE 1 TABLET BY MOUTH NIGHTLY simvastatin (ZOCOR) 10 mg tablet (Taking) TAKE ONE TABLET BY MOUTH ONCE NIGHTLY triamcinolone (KENALOG) 0.025% cream (Taking) Apply thin film to affected area(s) two lilia ly as needed Number of times this order has been changed since signin Order [place] [place] UNCODED MEDICATION (Taking) Diagnosis: Obstructive Sleep Apnea ICD-9: 327.23 Length of Need: 99 Months Number of times this order has been changed since signin Order [place] UNCODED MEDICATION (Taking) Wear at all times while sleeping. Number of times this order has been changed since signin Order [place] [place] Past Medical History She has a past [...] r oot enlargement (HCC) (01/13/2014); Prediabetes (12/09/2013); Cataract (); and History o f compression fracture of spine (08/17/2015). Past Surgical History She has past surgical history that includes back surgery (1991); gastroplasty (1985); Bunio nectomy (1986); Toe Surgery; Endometrial biopsy (2001); Knee arthroscopy (Left, 2005); Total knee arthroplasty (Left, 07/15/13); and Dilation and curettage of uterus (06/03/2014). Family History: Her family history includes Alzheimer's disease in her mother; Heart attack in her father; Heart disease in her maternal grandfather, paternal grandmother, and paternal uncle; Lung ca ncer in her paternal uncle; Obesity in her maternal grandmother; Other (see comment) in her maternal grandmother; Stroke in her paternal grandfather; Thyroid disease in her sister. 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 Respiratory: Negative for cough, shortness of breath and wheezing. Cardiovascular: Negative for chest pain, palpitations and leg swelling. Musculoskeletal: Positive for back pain and arthralgias. See HPI. Neurological: Positive for numbness. Negative for weakness and headaches. Right lower leg numbness and foot drop due to injury in 1991. Objective: Filed Vitals: 07/24/16 0908 BP: 110/74 Pulse: 81 Temp: 36.6 C (97.9 F) TempSrc: Temporal Resp: 16 Weight: 135.172 kg (298 lb) SpO2: 98% Physical Exam Constitutional: She is oriented to person, place, and time. She appears well-developed and well-nourished. Obese HENT: Head: Normocephalic and atraumatic. Right Ear: External ear normal. Left Ear: External ear normal. Nose: Nose normal. Eyes: Conjunctivae are normal. Right eye exhibits no discharge. Left eye exhibits no discha rge. No scleral icterus. Cardiovascular: Normal rate, regular rhythm and normal heart sounds. No murmur heard. Pulmonary/Chest: Effort normal and breath sounds normal. No respiratory distress. She has n o wheezes. She has no rales. Musculoskeletal: Right knee: She exhibits bony tenderness. She exhibits normal range of motion, no swel ling, no effusion, no ecchymosis and no deformity. No medial joint line and no lateral joint line tenderness noted. Lumbar back: She exhibits tenderness and pain. She exhibits no swelling, no deformity and no laceration. Bony tenderness lateral to the patella. Varus, Valgus and Latoya's negative. Neurological: She is alert and oriented to person, place, and time. Skin: Skin is warm and dry. No rash noted. No erythema. Psychiatric: She has a normal mood and affect. Her behavior is normal. Nursing note and vitals reviewed. Results for orders placed or performed in visit on 04/23/16 External Lab: Creatinine Result Value Ref Range Creatinine, External 0.93 External Lab: eGFR Result Value Ref Range eGFR, External 61 External Lab: Microalbumin/Creatinine Ratio, Urine Result Value Ref Range Microalbumin/Creatinine Ratio, External 3.2 External Lab: Cholesterol, LDL Result Value Ref Range LDL Cholesterol, External 53 External Lab: Cholesterol, Total Result Value Ref Range Cholesterol, Total, External 127 mg/dl External Lab: Cholesterol, HDL Result Value Ref Range HDL Cholesterol, External 58.8 mg/dl External Lab: Triglycerides Result Value Ref Range Triglycerides, External 76 External Lab: Urinalysis Result Value Ref Range UA Blood, External Negative UA Glucose, External Normal UA Ketones, External Negative UA Ph, External 5 UA Proteins, External Negative UA RBC, External 0 UA Specific [place], External 1.026 UA Leukocyte Esterase, External Negative External Lab: Sodium Result Value Ref Range Sodium, External 138 External Lab: Potassium Result Value Ref Range Potassium, External 4.6 External Lab: Chloride Result Value Ref Range Chloride, External 102 External Lab: Carbon Dioxide Result Value Ref Range Carbon Dioxide, External 25 External Lab: Calcium Result Value Ref Range Calcium, External 8.9 External Lab: Protein, Total Result Value Ref Range Protein, Total, External 6.9 External Lab: Albumin Result Value Ref Range Albumin, External 3.8 External Lab: Bilirubin, Total Result Value Ref Range Bilirubin, Total, External 0.4 External Lab: Alkaline Phosphatase Result Value Ref Range ALP, External 94 External Lab: AST Result Value Ref Range AST, External 19 External Lab: ALT Result Value Ref Range ALT, External 18 External Lab: Glucose Result Value Ref Range Glucose, External 115 External Lab: BUN Result Value Ref Range BUN, External 17 Hemoglobin A1C Result Value Ref Range Hemoglobin A1c, external 6.2 Lipid Panel Result Value Ref Range VLDL Cholesterol Nic 15 4 - 40 Chol/HDL Ratio 2.2 4.4 Non HDL Chol. (LDL+VLDL) 68 130 Comprehensive Metabolic Panel Result Value Ref Range ANION GAP 16 7 - 21 mmol/L Bun/Creatinine 18.3 6.0 - 28.6 Globulin 3.1 1.8 - 3.5 Albumin/Globulin Ratio 1.2 1.1 - 2.4 Assessment: 1. Osteopenia Ambulatory referral to Endocrinology 2. T12 compression fracture, initial encounter ([facility]) MRI Thoracic Spine w wo Contrast * [facility] Neurosurgery - AMB Referral 3. Derangement of right knee XR Knee Right 3 Vw 4. Decreased GFR Renal Function Panel 5. Need for Tdap vaccination Tdap vaccine greater than or equal to 7yo IM [[id number]] 6. Need for influenza vaccination Quadrivalent Flu vac greater than or equal to 3YO preser vative free IM [[id number]] Plans: 1. Osteopenia No improvement of osteopenia after five years of fosamax. D/c fosamax. - Ambulatory referral to Endocrinology 2. T12 compression fracture, initial encounter ([facility]) - MRI Thoracic Spine w wo Contrast; Future - * [facility] [place] Neurosurgery - AMB Referral 3. Derangement of right knee - XR Knee Right 3 Vw; Future 4. Decreased GFR - Renal Function Panel; Future 5. Need for Tdap vaccination - Tdap vaccine greater than or equal to 7yo IM [[id number]] 6. Need for influenza vaccination - Quadrivalent Flu vac greater than or equal to 3YO preservative free IM [[id number]] Follow-up: Return for next 30 minute available for DM, HTN. Lipid. Care instructions and warning signs were discussed. Medications per orders. Side effects discussed. Labs and investigations per orders. Norbert Lopes, SHAVON Student, [facility] illa Lynn Medi cal Dog Licenser - 07/24/2016 3:21 PM PDTAfter obtaining informed consent, the immunization is given by Villa Lynn Ivy Tran ARNP - 07/24/2016 9:10 AM PDT Lucie Miller is a 66 y.o. female Chief Complaint: Back Pain HPI Back Pain Patient presents for evaluation of low back problems. Symptoms have been present for 1 rainer h Symptoms include: Low back pain. 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 Pain occurs all day. Alleviating factors identifiable by the patient are medication lidocaine patch. Aggravating factors identifiable by the patient are bending backwards, bending forwards, recumbency, ru nning, sitting, standing, walking and walking uphill. Treatments for this issue in the past : Had a laminal disectomy in 1991. Patient had an MRI done 08/24/15 and saw a compression fracture on t8, patient was referred to and wa s told not to return unless she was having increase pain. Patient was seen in ED and UC 06/28 07/13 and had xrays done at [facility]. patient was given robaxin 500 mg PO QID and Lidocain 5% patch, once daily. . Previous lower back problems: yes. See above. Had not had PT for her back since 1991 Pt denies saddle anesthesia, progressive weakness, Bowel or bladder control problems or dy sfunction. t12 fracture noted in xray from outside facility. Patient has a drop foot from her laminectomy several years ago. Risk factors: Obese, osteopenia Disability claims current or pending: None. Failure of prior treatments: None. Past dexa reviewed. On fosamax since 2010. Noted to have osteopenia. DEXA BONE DENSITY STUDY WO MARK FX ASSESSMENT 09/06/2015 11:15 AM HISTORY: osteopenia and [...] Manley MD Electronically signed: 09/06/2015 4:38 PM Right knee pain: Patient fell on her right knee on July 13. Ever since she fell she has been experien cing catching sensation. She does hear some popping at time. Patient had a total knee surger y done on her left knee. PREVENTIVE CARE/PRIOR VISITS 1. Any recommendations from Health Maintenance: Influenza. Preventative Services TOPIC LAST DONE NEXT DUE Influenza Imm (Yearly) 08/17/2015 06/28/2016 Colon Cancer Screening (Colonoscopy Every 10 Years 50-75) 05/20/2011 05/20/2021 Cervical Cancer Screening (Pap Every 3 Years 21-65 ) 05/05/2013 05/05/2016 Dtap/Tdap/Td Imm 01/15/2007 01/15/2017 Hpv Imm 2. Any immunizations necessary: Influenza. Immunization History Administered Date(s) Administered INFLUENZA, QUADRIVALENT PRESERVATIVE FREE (PED/ADOL/ADULT) 11/10/2014, 08/17/2015, 06/29 INFLUENZA, TRIVALENT PRESERVATIVE FREE (PED/ADOL/ADULT) 08/25/2012, 10/14/2013 PNEUMOCOCCAL POLYSACCHARIDE 23-VALENT (PPSV23) 08/25/2012 TDAP, (ADOL/ADULT) 01/15/2007, 07/24/2016 3. Has patient been involved in medical events/hospitalizations since their last visit: no . No Known Allergies Medications: Patient Reported Taking Dosage alendronate (FOSAMAX) 70 mg tablet (Taking/Discontinued) Take 1 tablet by mouth Once a we ek. Number of times this order has been changed since signin Order [place] [place] aspirin (ASPIRIN ADULT LOW STRENGTH) 81 MG EC tablet (Taking) Take 81 mg by mouth Daily. Number of times this order has been changed since signin Order [facility] [place] Calcium Carb-Cholecalciferol (CALCIUM 1000 + D) 1000-800 MG-UNIT TABS (Taking) Take 1 tab let by mouth Daily. Number of times this order has been changed since signin Order [facility] [place] FreeStyle Lancets MISC (Taking) Test blood sugar twice daily. 790.29 Number of times this order has been changed since signin Order [place] [place] gabapentin (NEURONTIN) 600 MG tablet (Taking) Take 1 tablet by mouth nightly. glucose blood test strips (FREESTYLE LITE) strip (Taking) Test blood sugar twice daily . 790.29 Number of times this order has been changed since signin Order [facility] [place] lisinopril (PRINIVIL, ZESTRIL) 10 mg tablet (Taking) TAKE ONE TABLET BY MOUTH EVERY MORNI NG metFORMIN (GLUCOPHAGE) 500 mg tablet (Taking) Take 1 tablet by mouth daily (with breakfas t). nortriptyline (PAMELOR) 10 MG capsule (Taking) TAKE 3 CAPSULES BY MOUTH NIGHTLY PARoxetine (PAXIL) 40 MG tablet (Taking) TAKE ONE TABLET BY MOUTH DAILY rOPINIrole (REQUIP) 2 MG tablet (Taking) TAKE 1 TABLET BY MOUTH NIGHTLY simvastatin (ZOCOR) 10 mg tablet (Taking) TAKE ONE TABLET BY MOUTH ONCE NIGHTLY triamcinolone (KENALOG) 0.025% cream (Taking) Apply thin film to affected area(s) two lilia ly as needed Number of times this order has been changed since signin Order [place] UNCODED MEDICATION (Taking) Diagnosis: Obstructive Sleep Apnea ICD-9: 327.23 Length of Need: 99 Months Number of times this order has been changed since signin Order [place] UNCODED MEDICATION (Taking) Wear at all times while sleeping. Number of times this order has been changed since signin Order [facility] [place] Past Medical History She has a past [...] r oot enlargement (HCC) (01/13/2014); Prediabetes (12/09/2013); Cataract (); and History o f compression fracture of spine (08/17/2015). Past Surgical History She has past surgical history that includes back surgery (1991); gastroplasty (1985); Bunio nectomy (1986); Toe Surgery; Endometrial biopsy (2001); Knee arthroscopy (Left, 2005); Total knee arthroplasty (Left, 07/15/13); and Dilation and curettage of uterus (06/03/2014). Family History: Her family history includes Alzheimer's disease in her mother; Heart attack in her father; Heart disease in her maternal grandfather, paternal grandmother, and paternal uncle; Lung ca ncer in her paternal uncle; Obesity in her maternal grandmother; Other (see comment) in her maternal grandmother; Stroke in her paternal grandfather; Thyroid disease in her sister. 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 Cardiovascular: Negative for chest pain, palpitations and leg swelling. Musculoskeletal: Positive for back pain. Negative for joint swelling and neck pain. Neurological: Negative for dizziness, light-headedness and headaches. Objective: Filed Vitals: 07/24/16 0908 BP: 110/74 Pulse: 81 Temp: 36.6 C (97.9 F) TempSrc: Temporal Resp: 16 Weight: 135.172 kg (298 lb) SpO2: 98% Physical Exam Constitutional: She is oriented to person, place, and time. She appears well-developed and well-nourished. No distress. HENT: Head: Normocephalic and atraumatic. Mouth/Throat: Oropharynx is clear and moist. Eyes: Conjunctivae are normal. Right eye exhibits no discharge. Left eye exhibits no discha rge. Neck: Neck supple. No JVD present. Cardiovascular: Normal rate, regular rhythm and normal heart sounds. Exam reveals no lockhart p and no friction rub. No murmur heard. Pulmonary/Chest: Effort normal and breath sounds normal. No respiratory distress. She has n o wheezes. She has no rales. Musculoskeletal: Tenderness: Lumbar Swelling: None Deformity: None Gait: Drop-foot Right knee: Varus and valgus and mcmurries, negative. Lymphadenopathy: She has no cervical adenopathy. Neurological: She is alert and oriented to person, place, and time. Skin: Skin is warm and dry. She is not diaphoretic. Psychiatric: She has a normal mood and affect. Her behavior is normal. Nursing note and vitals reviewed. Results for orders placed or performed in visit on 04/23/16 External Lab: Creatinine Result Value Ref Range Creatinine, External 0.93 External Lab: eGFR Result Value Ref Range eGFR, External 61 External Lab: Microalbumin/Creatinine Ratio, Urine Result Value Ref Range Microalbumin/Creatinine Ratio, External 3.2 External Lab: Cholesterol, LDL Result Value Ref Range LDL Cholesterol, External 53 External Lab: Cholesterol, Total Result Value Ref Range Cholesterol, Total, External 127 mg/dl External Lab: Cholesterol, HDL Result Value Ref Range HDL Cholesterol, External 58.8 mg/dl External Lab: Triglycerides Result Value Ref Range Triglycerides, External 76 External Lab: Urinalysis Result Value Ref Range UA Blood, External Negative UA Glucose, External Normal UA Ketones, External Negative UA Ph, External 5 UA Proteins, External Negative UA RBC, External 0 UA Specific [place], External 1.026 UA Leukocyte Esterase, External Negative External Lab: Sodium Result Value Ref Range Sodium, External 138 External Lab: Potassium Result Value Ref Range Potassium, External 4.6 External Lab: Chloride Result Value Ref Range Chloride, External 102 External Lab: Carbon Dioxide Result Value Ref Range Carbon Dioxide, External 25 External Lab: Calcium Result Value Ref Range Calcium, External 8.9 External Lab: Protein, Total Result Value Ref Range Protein, Total, External 6.9 External Lab: Albumin Result Value Ref Range Albumin, External 3.8 External Lab: Bilirubin, Total Result Value Ref Range Bilirubin, Total, External 0.4 External Lab: Alkaline Phosphatase Result Value Ref Range ALP, External 94 External Lab: AST Result Value Ref Range AST, External 19 External Lab: ALT Result Value Ref Range ALT, External 18 External Lab: Glucose Result Value Ref Range Glucose, External 115 External Lab: BUN Result Value Ref Range BUN, External 17 Hemoglobin A1C Result Value Ref Range Hemoglobin A1c, external 6.2 Lipid Panel Result Value Ref Range VLDL Cholesterol Nic 15 4 - 40 Chol/HDL Ratio 2.2 4.4 Non HDL Chol. (LDL+VLDL) 68 130 Comprehensive Metabolic Panel Result Value Ref Range ANION GAP 16 7 - 21 mmol/L Bun/Creatinine 18.3 6.0 - 28.6 Globulin 3.1 1.8 - 3.5 Albumin/Globulin Ratio 1.2 1.1 - 2.4 Assessment: 1. Osteopenia Ambulatory referral to Endocrinology 2. T12 compression fracture, initial encounter ([facility]) MRI Thoracic Spine w wo Contrast * [facility] - AMB Referral 3. Derangement of right knee XR Knee Right 3 Vw 4. Decreased GFR Renal Function Panel 5. Need for Tdap vaccination Tdap vaccine greater than or equal to 7yo IM [26260] 6. Need for influenza vaccination Quadrivalent Flu vac greater than or equal to 3YO preser vative free IM [17805] Plans: 1. Osteopenia Discussed sending patient to Endocrinology for further evaluation. Discussed patient has been on Fosamax for about 5 years and it is recommended patients not stay on fosamax for no more than 5 years. Fosamax has not shown a significant improvement to her bone health. Patient instructed to stop Fosamax. Discussed that I highly suspect patient has osteoporosis and her T-score on her dexa scans are falsely elevated due to arthritic changes. - Ambulatory referral to Endocrinology 2. T12 compression fracture, initial encounter ([facility]) Discussed getting thoracic MRI to follow up on her compression fractures. MRI ordered, will notify patient of results when available. Patient instructed to schedule follow up with for new compression fracture. Referral placed to Neurosurgery. Patient instructed to take Ibuprofen 600 mg every 6 hours with food. - MRI Thoracic Spine w wo Contrast; Future - Referral to neurosurgery. 3. Derangement of right knee Discussed getting an xray done of right knee to check for any abnormalities or narrowing of the joint space. If xray shows abnormalities we will send patient to Ortho. Right weight bearing xray ordered. - XR Knee Right 3 Vw; Future 4. Decreased GFR Will check patients kidney functions since she is on the meloxicam and has been taking ibup rofen daily for the last months. Renal function panel ordered. Will notify of results when available - Renal Function Panel; Future 5. Need for Tdap vaccination 6. Need for influenza vaccination Immunization counseling discussed by myself and updated today - Tdap vaccine greater than or equal to 7yo IM [03366] - Quadrivalent Flu vac greater than or equal to 3YO preservative free IM [[id number]] Follow-up: Return for next 30 minute available for DM, HTN. Lipid. Care instructions and warning signs were discussed. Medications per orders. Side effects discussed. Labs and investigations per orders. IVilla, [employer], am acting as a scribe on behalf of, and in the presence of JUSTYN Castro. [place], [employer] 07/24/16 I, JUSTYN Rodriges, personally performed the services described in this documentation , as scribed in my presence and it is both accurate and complete. JUSTYN Babcock 0 07/24/16 documented in th is encounter Plan of Treatment +--------+---------+ + + + | Date | Type | Specialty | Care Team | Description | +--------+---------+ + + + | 11/23/ | Office | Family Medicine | Ivy Sun | | | 2020 | Visit | | JUSTYN Keating [address] [...] | + + +--------+ + + | Ambulatory referral | Outpatient | Routin | Osteopenia | Ordered: 07/24/2016 | | to Endocrinology | Referral | e | | | + + +--------+ + + | * [facility] | Outpatient | Routin | T12 compression | Ordered: 07/24/2016 | | Neurosurgery - AMB | Referral | e | fracture, initial | | | Referral | | | encounter (HCC) | | + + +--------+ + + documented as of this encounter Procedures + +--------+ + + + | Procedure Name | Priori | Date/Time | Associated Diagnosis | Comments | | | ty | | | | + +--------+ + + + | PATHOLOGY - EXTERNAL | | 06/01/2015 | | Results for this | | SCAN | | 12:00 AM | | procedure are in the | | | | PDT | | results section. | + +--------+ + + + documented in this encounter Results MRI Thoracic Spine w wo Contrast (08/01/2016 5:39 PM PDT) + + | Specimen | + + | | + + + + + | Narrative | Performed At | + + + | UNENHANCED AND ENHANCED MRI thoracic SPINE 08/01/2016 4:41 PM | [facility] | | CLINICAL HISTORY: osteopenia, compression fracture of t8 and t12 | [facility] | | COMPARISON: Thoracic MRI July 2015 TECHNIQUE: The | [facility] | | following 3T MR sequences of the thoracic spine were obtained: 1. | - IMAGING | | Sagittal STIR and T1. 2. Axial, coronal and sagittal T2. 3. | | | Axial VIBE with fat suppression. 4. Following the uneventful | | | intravenous administration of 10 mL Gadavist, axial and sagittal T1 | | | sequences were obtained. FINDINGS: Prominent leftward thoracic | | | curvature centered at T3-4 persists. Mild to moderate compression | | | deformity of the T8 vertebral body is again evident, appearing | | | slightly progressed from imaging of July 2015 and with approximate | | | 40-50% loss of vertebral body height. Previously visible marrow | | | edema at this level has resolved. There is new central compression | | | deformity of the inferior T12 vertebral endplate, with approximate | | | 40% loss of vertebral height, and marrow edema is present throughout | | | the vertebral body and extending towards the pedicles, consistent | | | with acute to subacute age. There is mixed signal material adjacent | | | to the endplate, potentially reflecting hemorrhage. Buckling of the | | | posterior vertebral body minimally narrows the central canal. | | | Thoracic vertebral height and alignment are otherwise obtained. | | | Mild, generalized marrow heterogeneity favors | | | osteopenic/osteoporotic change. Disc osteophyte complexes are | | | present at multiple cervical levels and appear to at least mildly | | | narrow the central canal on provided large uxthz-du-bcfe sagittal | | | images through the region. The cervical neural foramina are not well | | | evaluated. No significant thoracic disc pathology or stenosis is | | | evident. Hypertrophy of several upper to mid thoracic | | | costovertebral joints is noted. The visible spinal cord | | | demonstrates normal intrinsic signal intensity and caliber. The | | | conus medullaris terminates below L1 and is not imaged. No | | | suspicious intradural, epidural, interspace, marrow or paraspinal | | | enhancement is evident following contrast administration. Fluid | | | signal cysts are noted along the margins of the imaged left kidney. | | | There is a 10 mm nodule in the left adrenal gland, which was not | | | imaged previously. The imaged paraspinal, intrathoracic and upper | | | abdominal structures are otherwise unremarkable. IMPRESSION - 1. | | | ACUTE TO SUBACUTE APPEARING T12 COMPRESSION FRACTURE WITH MINIMAL | | | ASSOCIATED CENTRAL CANAL STENOSIS. 2. CHRONIC T8 COMPRESSION | | | FRACTURE WITHOUT ASSOCIATED STENOSIS. 3. UPPER THORACIC | | | LEVOSCOLIOSIS WITHOUT SIGNIFICANT THORACIC DISC PATHOLOGY OR | | | STENOSIS. 4. MULTILEVEL CERVICAL DEGENERATIVE DISC DISEASE AND | | | SPONDYLOSIS WITH AT LEAST MILD STENOSIS. CONSIDER DEDICATED | | | CERVICAL MRI IF MORE COMPLETE EVALUATION IS DESIRED. 5. 10 MM | | | LEFT ADRENAL NODULE. CONSIDER DEDICATED MULTIPHASE UNENHANCED AND | | | ENHANCED ADRENAL CT. Dictated and Signed by: Shabbir Valderrama MD | | | Electronically signed: 08/01/2016 5:53 PM | | + + + + + | Procedure Note | + + | Yohannes, Rad Results In - 08/01/2016 5:56 PM PDT UNENHANCED AND ENHANCED MRI thoracic | | SPINE 08/01/2016 4:41 PMCLINICAL HISTORY: osteopenia, compression fracture of t8 and t12 | | COMPARISON: Thoracic MRI July 2015TECHNIQUE: The following 3T MR sequences of the | | thoracic spine were obtained:1. Sagittal STIR and T1.2. Axial, coronal and sagittal | | T2.3. Axial VIBE with fat suppression.4. Following the uneventful intravenous | | administration of 10 mL Gadavist, axialand sagittal T1 sequences were obtained.FINDINGS: | | Prominent leftward thoracic curvature centered at T3-4 persists. Mildto moderate | | compression deformity of the T8 vertebral body is again evident,appearing slightly | | progressed from imaging of July 2015 and with etbjkmhqdbr59-20% loss of vertebral | | body height. Previously visible marrow edema at thislevel has resolved. There is new | | central compression deformity of the [id number] vertebral endplate, with approximate | | 40% loss of vertebral height, andmarrow edema is present throughout the vertebral body | | and extending towards thepedicles, consistent with acute to subacute age. There is | | mixed signal materialadjacent to the endplate, potentially reflecting hemorrhage. | | Buckling of theposterior vertebral body minimally narrows the central canal. | | Thoracicvertebral height and alignment are otherwise obtained. Mild, generalized | | marrowheterogeneity favors osteopenic/osteoporotic change.Disc osteophyte complexes are | | present at multiple cervical levels and appear toat least mildly narrow the central | | canal on provided large zhimh-gy-wkxqdiyqkhde images through the region. The cervical | | neural foramina are not wellevaluated.No significant thoracic disc pathology or stenosis | | is evident. Hypertrophy ofseveral upper to mid thoracic costovertebral joints is | | noted.The visible spinal cord demonstrates normal intrinsic signal intensity andcaliber. | | The conus medullaris terminates below L1 and is not imaged. Nosuspicious intradural, | | epidural, interspace, marrow or paraspinal enhancement isevident following contrast | | administration.Fluid signal cysts are noted along the margins of the imaged left kidney. | | Thereis a 10 mm nodule in the left adrenal gland, which was not imaged previously. The | | imaged paraspinal, intrathoracic and upper abdominal structures areotherwise | | unremarkable.IMPRESSION -1. ACUTE TO SUBACUTE APPEARING T12 COMPRESSION FRACTURE WITH | | MINIMAL ASSOCIATEDCENTRAL CANAL STENOSIS.2. CHRONIC T8 COMPRESSION FRACTURE WITHOUT | | ASSOCIATED STENOSIS.3. UPPER THORACIC LEVOSCOLIOSIS WITHOUT SIGNIFICANT THORACIC DISC | | PATHOLOGY ORSTENOSIS.4. MULTILEVEL CERVICAL DEGENERATIVE DISC DISEASE AND SPONDYLOSIS | | WITH AT LEASTMILD STENOSIS. CONSIDER DEDICATED CERVICAL MRI IF MORE COMPLETE EVALUATION | | ISDESIRED.5. 10 MM LEFT ADRENAL NODULE. CONSIDER DEDICATED MULTIPHASE UNENHANCED | | ANDENHANCED ADRENAL CT.Dictated and Signed by: Shabbir Valderrama MD Electronically signed: | | 08/01/2016 5:53 PM | |caliber. The conus medullaris terminates below L1 and is not imaged. No | |suspicious intradural, epidural, interspace, marrow or paraspinal enhancement is | |evident following contrast administration. | | | |Fluid signal cysts are noted along the margins of the imaged left kidney. There | |is a 10 mm nodule in the left adrenal gland, which was not imaged previously. | |The imaged paraspinal, intrathoracic and upper abdominal structures are | |otherwise unremarkable. | | | |IMPRESSION - | |1. ACUTE TO SUBACUTE APPEARING T12 COMPRESSION FRACTURE WITH MINIMAL ASSOCIATED | |CENTRAL CANAL STENOSIS. | | | |2. CHRONIC T8 COMPRESSION FRACTURE WITHOUT ASSOCIATED STENOSIS. | | | |3. UPPER THORACIC LEVOSCOLIOSIS WITHOUT SIGNIFICANT THORACIC DISC PATHOLOGY OR | |STENOSIS. | | | |4. MULTILEVEL CERVICAL DEGENERATIVE DISC DISEASE AND SPONDYLOSIS WITH AT LEAST | |MILD STENOSIS. CONSIDER DEDICATED CERVICAL MRI IF MORE COMPLETE EVALUATION IS | |DESIRED. | | | |5. 10 MM LEFT ADRENAL NODULE. CONSIDER DEDICATED MULTIPHASE UNENHANCED AND | |ENHANCED ADRENAL CT. | | | |Dictated and Signed by: Shabbir Valderrama MD | | Electronically signed: 08/01/2016 5:53 PM | + + + + + + + | Performing | Address | City/State/Zipcode | Phone Number | | Organization | | | | + + + + + | [facility] | [address] | [place] | [phone] | | [facility] | | [address] | | | - IMAGING | | | | + + + + + XR Knee Right 3 Vw (07/24/2016 11:02 AM PDT) + + | Specimen | + + | | + + + + + | Narrative | Performed At | + + + | EXAM: XR KNEE RIGHT 3 VW HISTORY: right knee derangement | [facility] | | weight bearing TECHNIQUE: AP, lateral, sunrise views of the | [facility] | | right knee. AP view of the left knee. COMPARISON: None. | [facility] | | FINDINGS: There is mild lateral patellar subluxation of the right | - IMAGING | | knee. There is moderate to severe patellofemoral compartment and | | | mild to moderate medial and lateral compartment osteoarthritis of the | | | right knee. There is a left total knee arthroplasty which is grossly | | | unremarkable. No acute fracture or malalignment. Soft tissues are | | | unremarkable. IMPRESSION - Right knee tricompartmental | | | osteoarthritis. Right knee lateral patellar subluxation. CRITICAL | | | VALUE: No Dictated and Signed by: Blane James MD | | | Electronically signed: 07/24/2016 11:33 AM | | + + + + + | Procedure Note | + + | Nic Sheffield Results In - 07/24/2016 11:36 AM PDT EXAM: XR KNEE RIGHT 3 VW | | | | HISTORY: right knee derangement | | weight bearing | | | | TECHNIQUE: AP, lateral, sunrise views of the right knee. AP view of the left | | knee. | | | | COMPARISON: None. | | | | FINDINGS: | | There is mild lateral patellar subluxation of the right knee. | | There is moderate to severe patellofemoral compartment and mild to moderate | | medial and lateral compartment osteoarthritis of the right knee. | | There is a left total knee arthroplasty which is grossly unremarkable. | | No acute fracture or malalignment. | | Soft tissues are unremarkable. | | | | IMPRESSION - | | Right knee tricompartmental osteoarthritis. | | Right knee lateral patellar subluxation. | | | | CRITICAL VALUE: No | | | | Dictated and Signed by: Blane James MD | | Electronically signed: 07/24/2016 11:33 AM | + + + + + + + | Performing | Address | City/State/Zipcode | Phone Number | | Organization | | | | + + + + + | [facility] | [address] | [place] | [phone] | | [facility] | | [address] | | | - IMAGING | | | | + + + + + Renal Function Panel (07/24/2016 10:29 AM PDT) + +-------+ + + + | Component | Value | Ref Range | Performed | Pathologist | | | | | At | Signature | + +-------+ + + + | Na | 141 | 136 - 149 | [facility] | | | | | mmol/L | [facility] | | | | | | MEDICAL | | | | | | CENTER - | | | | | | LABORATORY | | + +-------+ + + + | K | 3.7 | 3.5 - 5.1 | [facility] | | | | | mmol/L | [facility] | | | | | | MEDICAL | | | | | | CENTER - | | | | | | LABORATORY | | + +-------+ + + + | Cl | 105 | 98 - 109 mmol/L | [facility] | | | | | | [facility] | | | | | | MEDICAL | | | | | | CENTER - | | | | | | LABORATORY | | + +-------+ + + + | CO2 | 26 | 24 - 31 mmol/L | [facility] | | | | | | [facility] | | | | | | MEDICAL | | | | | | CENTER - | | | | | | LABORATORY | | + +-------+ + + + | Anion Gap | 10 | 3 - 16 mmol/L | [facility] | | | | | | [facility] | | | | | | MEDICAL | | | | | | CENTER - | | | | | | LABORATORY | | + +-------+ + + + | Glucose | 101 | 70 - 109 mg/dL | [facility] | | | | | | [facility] | | | | | | MEDICAL | | | | | | CENTER - | | | | | | LABORATORY | | + +-------+ + + + | BUN | 15 | 7 - 18 mg/dL | [facility] | | | | | | [facility] | | | | | | MEDICAL | | | | | | CENTER - | | | | | | LABORATORY | | + +-------+ + + + | Creatinine | 0.85 | 0.60 - 1.30 | [facility] | | | | | mg/dL | [facility] | | | | | | MEDICAL | | | | | | CENTER - | | | | | | LABORATORY | | + +-------+ + + + | eGFR if not | >60 | >=60 | [facility] | | | | | mL/min/1.73m2 | [facility] | | | [facility] | | | MEDICAL | | | | | | CENTER - | | | | | | LABORATORY | | + +-------+ + + + | Calcium | 9.2 | 8.3 - 10.5 | [facility] | | | | | mg/dL | [facility] | | | | | | MEDICAL | | | | | | CENTER - | | | | | | LABORATORY | | + +-------+ + + + | Albumin | 3.5 | 3.2 - 5.0 g/dL | [facility] | | | | | | [facility] | | | | | | MEDICAL | | | | | | CENTER - | | | | | | LABORATORY | | + +-------+ + + + | Phosphorus | 3.3 | 2.5 - 4.6 mg/dL | [facility] | | | | | | [facility] | | | | | | MEDICAL | | | | | | CENTER - | | | | | | LABORATORY | | + +-------+ + + + | BUN/Creatin | 17.6 | | [facility] | | | ine Ratio | | | [facility] | | | | | | MEDICAL | | | | | | CENTER - | | | | | | LABORATORY | | + +-------+ + + + + + | Specimen | + + | Blood | + + + + + + + | Performing | Address | City/State/Zipcode | Phone Number | | Organization | | | | + + + + + | [facility] | [address] | [place] | [phone] | | [facility] | | [address] | | | - LABORATORY | | | | + + + + + PATHOLOGY - EXTERNAL SCAN (06/01/2015 12:00 AM PDT) + + + | Narrative | Performed At | + + + | Ordered by an | | | unspecified provider. | | + + + documented in this encounter Visit Diagnoses + + | Diagnosis | + + | Osteopenia - Primary Disorder of bone and cartilage, unspecified | + + | T12 compression fracture, initial encounter (HCC) | + + | Derangement of right knee Unspecified internal derangement of knee | + + | Decreased GFR Nonspecific abnormal results of kidney function study | + + | Need for Tdap vaccination Need for prophylactic vaccination with combined | | kujfmywfre-dirnwql-dcblpiqeh (DTP) vaccine | + + | Need for influenza vaccination Need for prophylactic vaccination and inoculation | | against influenza | + + documented in this encounter"
--- OUTSIDE RECORDS SUMMARY | ~2019-10-23 | XMS | Encounter Summary ---
Demographics + + + | Address | [address] | | | [place] [address] | + + + | Home Phone | | + + + | Preferred Language | Unknown | + + + | Marital Status | Single | + + + | Taoist Affiliation | [id number] | + + + | Race | Unknown | + + + | Ethnic Group | Unknown | + + + Author + + + | Author | [facility] | | | and [facility] | + + + | Organization | [facility] | | | and [facility] [...] [place], [place] | | | | | [address] | | + + + + + | [address] | ECON | [place] | | | | | [address] | | + + + + + Care Team Providers + +------+ + | Care Derrick Boat Runner Name | Role | Phone | + +------+ + | Ivy Sun | PCP | | + +------+ + Encounter Details +--------+ + + + + | Date | Type | Department | Care Team | Description | +--------+ + + + + | 07/09/ | Abstract | [facility] | [facility] | | | 2011 | | Conversion Location | [facility] | | | | | [phone] | | | +--------+ + + + + Social History + +-------+ [...] + + + | Blood Pressure | 122/86 | 06/24/2012 12:00 AM | | | | | PDT [...] Weight | 119.7 kg (264 lb) | 06/24/2012 12:00 AM | | | | | PDT | | + + + + + | Height | 170.2 cm (5' 7") | 02/28/2011 12:00 AM | | | | | PDT | | + + + + + | Body Mass Index | 41.97 | 02/28/2011 12:00 AM | | | | | PDT | | + + + + + documented in this encounter Plan of Treatment +--------+---------+ + + + | Date | Type | Specialty | Care Team | Description | +--------+---------+ + + + | 11/23/ | Office | Family Medicine | Ivy Sun | | | 2019 | Visit | | JUSTYN Keating [address] | | | | | | [place] | | | | | | [address] | | | | | | | | +--------+---------+ + + + documented as of this encounter Procedures + +--------+ + + + | Procedure Name | Priori | Date/Time | Associated Diagnosis | Comments | | | ty | | | | + +--------+ + + + | ANGELINA SCREENING | Routin | 2012 | | Results for this | | BILATERAL | e | 12:00 AM | | procedure are in the | | | | PDT | | results section. | + +--------+ + + + | ENDOSCOPY, COLON, | Routin | 05/20/2011 | | Results for this | | DIAGNOSTIC | e | 12:00 AM | | procedure are in the | | | | PDT | | results section. | + +--------+ + + + | PAP SMEAR | Routin | 02/14/2011 | | Results for this | | | e | 12:00 AM | | procedure are in the | | | | PDT | | results section. | + +--------+ + + + | ANGELINA SCREENING | Routin | 07/06/2009 | | Results for this | | BILATERAL | e | 12:00 AM | | procedure are in the | | | | PDT | | results section. | + +--------+ + + + documented in this encounter Results ANGELINA Screening Bilateral (2012 12:00 AM PDT) + + | Specimen | + + | | + + + + + | Narrative | Performed At | + + + | | | + + + ENDOSCOPY, COLON, DIAGNOSTIC (05/20/2011 12:00 AM PDT) + + | Specimen | + + | | + + + + + | Narrative | Performed At | + + + | | | + + + Pap Smear (02/14/2011 12:00 AM PDT) + + | Specimen | + + | | + + + + + | Narrative | Performed At | + + + | | | + + + ANGELINA Screening Bilateral (07/06/2009 12:00 AM PDT) + + | Specimen | + + | | + + + + + | Narrative | Performed At | + + + | | | + + + documented in this encounter Visit Diagnoses Not on filedocumented in this encounter
--- OUTSIDE RECORDS SUMMARY | ~2019-10-23 | XMS | Encounter Summary ---
Demographics + + + | Address | [address] | | | [place] [address] | + + + | Home Phone | | + + + | Preferred Language | Unknown | + + + | Marital Status | Single | + + + | Worship Affiliation | 1077 | + + + | Race | Unknown | + + + | Ethnic Group | Unknown | + + + Author + + + | Author | [facility] | | | and Rainerana | + + + | Organization | [facility] | | | and Rainerana [...] [place], [place] | | | | | [address] | | + + + + + | Jelena Hill | ECON | [place] | | | | | [address] | | + + + + + Care Team Providers + +------+ + | Care Crew Trainer Name | Role | Phone | + +------+ + | Ivy Sun | PCP | | + +------+ + Reason for Referral Diagnostic/Screening (Routine) +--------+--------+ + + + + | Status | Reason | Specialty | Diagnoses / | Referred By | Referred To | | | | | Procedures | Contact | Contact | +--------+--------+ + + + + | Closed | | Radiology | Diagnoses | [place], | [facility] | | | | | Aortic root | Logan | [address] | | | | | enlargement | MD Missael | [place], | | | | | (HCC) | [address] | [place] | | | | | Procedures | [place] | [address] | | | | | ECHO | [place], [place] | Phone: | | | | | Complete | [address] | [phone] | | | | | | Phone: | Fax: | | | | | | [phone] | [phone] | | | | | | Fax: | | | | | | | [phone] | | +--------+--------+ + + + + Encounter Details +--------+ + + + + | Date | Type | Department | Care Team | Description | +--------+ + + + + | 04/23/ | Orders Only | [facility] | Logan Wolf | Aortic root | | 2012 | | CARDIOLOGY [address] | MD Missael [address] | enlargement (HCC) | | | | [address] [place], | [address] [place] | (Primary Dx); | | | | [place] [address] | [place] [address] | Hyperlipidemia; | | | | [phone] | [phone] | Hypertension | | | | | | | +--------+ + + + + Social History + +-------+ +--------+------+ | Tobacco Use | Types | Packs/Day | Years | Date | | | | | Used | | + +-------+ +--------+------+ | Current Every Day | | 0.5 | 15 | | | Smoker | | | [...] 2020 | Visit | | [address] | | | | | | [place] | | | | | | [address] | | | | | | | | +--------+---------+ + + + documented as of this encounter Results ECHO Complete (12/18/2013 1:43 PM PST) + + | Specimen | + + | | + + + + + | Narrative | Performed At | + + + | [facility] | [facility] | | Department [address] [place] [address] | [facility] | | [ rep ct [address]] [ rep ct [facility] | | [facility]] Signed | - IMAGING | | | | | Patient Name: LUCIE CARRERA Physician: | | | SANDRA.01 : 1950 Age: 63 Sex: F Unit #: [id number] | | | Exam Date: 12/18/13 Location: [facility] | | | Report #: [id number] Page: | | | %(RAD)RES..mtdd.print.filter("pg") of %(RAD) | | | RES..mtdd.print.filter("tpg") | | | | | | Accession Number: [id number] | | | E C H O C A R D I O G R A P H Y R E P O R T | | | HEIGHT: 67" WEIGHT: 257# | | | STOCKROOM COORDINATOR: JAH REFERRING DR: LUCIANO JEAN-BAPTISTE DR: | | | LUCIANO DIAGNOSIS: AO ENLARGEMENT | | | | | | M E A S U R E M E N T S | | | Aortic Root: 37 mm LV | | | Diameter-diastole: 44 mm Aortic Cusp Sep: 21 mm | | | LV Diameter--systole: 29 mm LA: | | | 37 mm Fractional Shortenin % | | | IVS--diastole: 10 mm PFV Aortic Valve: | | | IVS--systole: 13 mm MPG Mitral | | | Valve: mmHg LVPW--diastole: 9 mm | | | PFV TR Jet: m/s LVPW--systole: | | | 16 mm RA/RV PPG: | | | mmHg | | | | | | ECHOCARDIOGRAM REPORT, 12/18/2013 REFERRING | | | PHYSICIAN: Dr. Wolf INDICATION: Aortic enlargement. | | | TECHNICAL QUALITY: Technical quality of the study is good. | | | PROCEDURE PERFORMED: This is a complete transthoracic | | | echocardiogram including 2-D M-mode Doppler and color flow Doppler | | | analysis. HEMODYNAMICS: The patient is in underlying sinus | | | rhythm throughout the procedure with a ventricular rate near 100. | | | RESULTS CHAMBERS: The left ventricle is of normal | | | end-diastolic and end-systolic dimensions with normal wall thickness | | | and regional wall motion. LVEF is calculated at 69%. Left atrium is | | | mildly enlarged. Right atrium is of normal size. Right ventricle | | | is of normal size and systolic function with normal wall thickness. | | | VALVES: Aortic valve is a mildly sclerotic trileaflet valve | | | with adequate opening. There is no significant stenosis with mild | | | insufficiency noted. Mitral valve is normal with mild regurgitation. | | | Tricuspid valve shows mild insufficiency with peak velocity that | | | is not accurately measured. Pulmonic valve is normal. | | | MISCELLANEOUS: Aortic root is mildly enlarged at 37 millimeters. | | | Pericardium is normal without an epicardial effusion. IVC is normal. | | | DIASTOLOGY: Diastolic parameters are consistent with grade | | | 1 LV diastolic dysfunction. IMPRESSION: 1. NORMAL | | | LEFT VENTRICULAR SIZE AND SYSTOLIC FUNCTION WITH LVEF OF 69%. 2. | | | MILD LEFT ATRIAL ENLARGEMENT. 3. MILD AORTIC, MITRAL AND | | | TRICUSPID INSUFFICIENCY. 4. GRADE 1 LV DIASTOLIC DYSFUNCTION. | | | 5. MILD AORTIC ROOT ENLARGEMENT. Dictated Date/Time: | | | 12/18/2013 13:43 Transcribed Date/Time: 12/18/2013 14:38 | | | Foxpro Developer: <<Signature on File>> | | | S | | | Missael Wolf MD12/28/13 1528 <Electronically signed by S S. | | | Luciano JEFFRIES> S Missael Wolf MD 12/18/13 1343 | | | Foxpro Developer: [employer] [id number]/21/14 1438 S | | | Missael Wolf MD | | + + + + + + + + | Performing | Address | City/State/Zipcode | Phone Number | | Organization | | | | + + + + + | [facility] | [address] | [place] | [phone] | | [facility] | | [address] | | | - IMAGING | | | | + + + + + documented in this encounter Visit Diagnoses + + | Diagnosis | + + | Aortic root enlargement (HCC) - Primary Aortic ectasia, unspecified site | + + | Hyperlipidemia Other and unspecified hyperlipidemia | + + | Hypertension Unspecified essential hypertension | + + documented in this encounter
--- OUTSIDE RECORDS SUMMARY | ~2019-10-23 | XMS | Encounter Summary ---
Demographics + + + | Address | [address] | | | [place] [address] | + + + | Home Phone | | + + + | Preferred Language | Unknown | + + + | Marital Status | Single | + + + | Cheondoism Affiliation | 1077 | + + + | Race | Unknown | + + + | Ethnic Group | Unknown | + + + Author + + + | Author | [facility] | | | and Rainerana | + + + | Organization | [facility] | | | and Rainerana | [...] [place], [place] | | | | | [address] | | + + + + + | Jelena Hill | ECON | [place] | | | | | [address] | | + + + + + Care Team Providers + +------+ + | Care Celery Stripper Name | Role | Phone | + [...] | | | Services | Medicine | Restless | Reymundo Allen | [address] | | | Required | | legs | MD Ivy 401 | [place] | | | | | syndrome | [place] | [place], | | | | | [place] | [facility] | [place] [address] | | | | | (obstructive | [facility], [place] | Phone: | | | | | sleep | [address] | [phone] | | | | | apnea) | Phone: | Fax: | | | | | Procedures | [phone] | [phone] | | | | | LA POLYSOM | Fax: | | | | | | 6/>YRS SLEEP | [phone] | | | | | | W/CPAP 4/> | | | | | | | ADDL ANNA | | | | | | | ATTND LA | | | | | | | POLYSOM | | | | | | | 6/>YRS SLEEP | | | | | | | 4/> ADDL | | | | | | | ANNA ATTND | | | | | | | PAP (4/2 | | | | | | | 7pm) | | | +--------+ + + + + + Reason for Visit + + + | Reason | Comments | + + + | CPAP Follow Up | | + + + Encounter Details +--------+---------+ + + + | Date | Type | Department | Care Team | Description | +--------+---------+ + + + | 01/02/ | Office | [facility] | Reymundo Guillory | KAMERON (obstructive | | 2018 | Visit | SLEEP DISORDER [address] | MD Ivy [address] | sleep apnea) | | | | [address] [place] | [address] [place] | (Primary Dx); | | | | [place] [address] | [place] [address] | Restless legs | | | | [phone] | [phone] | syndrome; Low | | | | | | ferritin | +--------+---------+ + + + Social History [...] + + + | Blood Pressure | 110/80 | 01/02/2018 10:13 AM | | | | | PST | | + + + + + | Pulse | 115 | 01/02/2018 10:13 AM | | | | | PST | | + + + + + | Temperature | - | - | | + + + + + | Respiratory Rate | 16 | 01/02/2018 10:13 AM | | | | | PST | | + + + + + | Oxygen Saturation | 95% | 01/02/2018 10:13 AM | | | | | PST | | + + + + + | Inhaled Oxygen | - | - | | | Concentration | | | | + + + + + | Weight | 130.7 kg (288 lb 2.3 | 01/02/2018 10:13 AM | | | | oz) | PST | | + + + + + | Height | - | - | | + + + + + | Body Mass Index | 47.95 | 09/16/2017 10:05 AM | | | | | PST | | + + + + + documented in this encounter Progress Notes Reymundo Guillory Jr., MD - 01/02/2018 9:45 AM PSTFormatting of this note might be differen t from the original. The patient comes in for follow-up after undergoing diagnostic polysomnography. My interpre tation of the patient's sleep study, which I have reviewed with the patient, is as follows: Polysomnogram Report on Lucie Miller performed on December 25, 2017. Clinical Information: Lucie Miller is a 67 y.o. female who underwent diagnostic noctu rnal polysomnography on December 25, 2017 on referral from Ivy ALEJANDRA because of o bstructive sleep apnea. Polysomnography performed in 2011 demonstrated an Apnea Hypopnea In dex of 13.5. Periodic limb movements were also noted on that study. Technical Information: Please see technical data which is attached. Definitions (The AASM Manual for the Scoring of Sleep and Associated Events, Version 2.4; 2 017): Apnea: There is a drop in the peak signal excursion by 90% or greater of pre-junior nt baseline using an oronasal thermal sensor (diagnostic study), PAP device flow (titration study), or an alternative apnea sensor (diagnostic study); the duration of the 90% or greate r drop in sensor signal is 10 seconds or longer. Obstructive Apnea: Event associated with continued or increased inspi ratory effort throughout the entire period of absent airflow. Central Apnea: Event associated with absent inspiratory effort throug hout the entire period of absent airflow. Mixed Apnea: Event associated with absent inspiratory effort in the i nitial portion of the event followed by resumption of inspiratory effort during the second p ortion of the event. Hypopnea: The peak signal excursions drop by greater than or equal to 30% of pre -event baseline using a recommended or alternative airflow sensor and the duration of the >= 30% drop in signal excursion is greater than or equal to 10 seconds and there is a greater than or equal to a 4% oxygen desaturation from pre-event baseline. Respiratory Event Related Arousal: A sequence of breaths lasting 10 seconds or l onger characterized by increasing respiratory effort or by flattening of the inspiratory por tion of the nasal pressure (diagnostic study) or PAP device flow (titration study) waveform leading to arousal from sleep when the sequence of breaths does not meet criteria for an quality assistant ea or hypopnea. Sleep Architecture: Lights out was recorded at 2352 hundred hours on December 25, 2017 and lights on was recorded at 0840 hundred hours on December 26, 2017. The latency to sleep onset w as normal at 12 minutes. The patient slept for 465 minutes out of 521 minutes of study time resulting an a sleep efficiency that was normal at 89.3 %. The amount of N1 sleep was kavitha l at 1.4 % of the Total Sleep Time; the amount of N2 sleep was elevated at 98.5 % of the Tot al Sleep Time; the amount of N3 sleep was normal at 0.1 % of the Total Sleep Time; the amoun t of REM sleep was low at 0% of the Total Sleep Time. Sleep in the following positions was recorded: left lateral decubitus 2.7%, right lateral d ecubitus 0%, supine 97.3%, prone 0%. Sleep was severely fragmented; the Arousal Index was 68.6. The patient reported this to be better than a usual night's sleep. Cardiopulmonary Monitoring: The heart rate averaged 104 beats per minute. Mild rate variab ility was noted. The rhythm was sinus tachycardia. In the course of the evening there were 4 obstructive apneas, 0 mixed apneas, 1 central quality assistant eas, 423 hypopneas, and 69 Respiratory Effort Related Arousals (RERA's). The Respiratory Dis turbance Index (RDI) was elevated at 64.1; the Apnea-Hypopnea Index elevated at 55.2; the Ap grayson Index (AI) 0.6. The respiratory events were significantly positional. The events were m uch more frequently seen in the supine position (supine Apnea Hypopnea Index 56.5, nonsupine Apnea Hypopnea Index 9.6).. The respiratory events occasioned severe sleep fragmentation; the Respiratory Arousal Index was 59.6. The cleve oxygen saturation was 78% and the patient spent 31.2 minutes with an oxygen satur ation of less than 88%. ETCO2 was not significantly elevated. Limb Movement Monitoring: There were 0 Periodic Limb Movements (PLMS Index of 0) of which 0 were associated with arousals; the PLMS Arousal Index was normal at 0. Interpretation: This polysomnogram is abnormal secondary to: Severe obstructive sleep apnea is diagnosed. This is associated with oxygen desaturation. This is also associated with severe sleep fragmentation. There is no rapid eye movement sleep. The reason for this is not clear. The cardiac rhythm is sinus tachycardia. Suggestions: 1. The principles of sleep hygiene should be reviewed with the patient. Polysomnographically guided CPAP titration is advised. BP 110/80 | Pulse 115 | Resp 16 | Wt 130.7 kg (288 lb 2.3 oz) | SpO2 95% | BMI 47.95 k g/m Lab Results Component Value Date FERRITIN 23 09/16/2017 A: KAMERON: The patient continues to have clinically significant and rather severe obstructive sleep apnea. I've discussed this with her. She was expecting this. She is willing to try CPAP again. I'm going to suggest we bring her back into the sleep center for polysomnograph ically guided positive airway pressure titration to assure that oxygen saturation improves a nd also to assure that REM sleep occurs. She is in agreement with this. RLS: Her ferritin level is low. I am going to suggest she start taking iron sulfate 3 25 mg twice a day. She is in agreement with this also. P: PSG guided PAP titration in the near future with f/u thereafter. FeSO4 325mg bid prescribed. Today, 15 minutes was spent face to face with the patient; the majority of time was spent janay magallon regarding sleep. documented in th is encounter Plan of Treatment +--------+---------+ + + + | Date | Type | Specialty | Care Team | Description | +--------+---------+ + + + | 01/27/ | Office | Family Medicine | Ivy Sun | | | 2019 | Visit | | [address], [address] | | | | | | [place] | | | | | | [address] | | | | | | | | +--------+---------+ + + + + + +--------+ + + | Name | Type | Priori | Associated Diagnoses | Order Schedule | | | | ty | | | + + +--------+ + + | * [facility] - | Outpatient | Routin | Restless legs | Ordered: 01/02/2018 | | AMB Referral | Referral | e | syndrome KAMERON | | | | | | (obstructive sleep | | | | | | apnea) | | + + +--------+ + + documented as of this encounter Visit Diagnoses + + | Diagnosis | + + | KAMERON (obstructive sleep apnea) - Primary Obstructive sleep apnea (adult) (pediatric) | + + | Restless legs syndrome Restless legs syndrome (RLS) | + + | Low ferritin Other nonspecific findings on examination of blood | + + documented in this encounter"
--- OUTSIDE RECORDS SUMMARY | ~2019-10-23 | XMS | Encounter Summary ---
Demographics + + + | Address | [address] | | | [place] [address] | + + + | Home Phone | | + + + | Preferred Language | Unknown | + + + | Marital Status | Single | + + + | Catholic Affiliation | 1077 | + + + | Race | Unknown | + + + | Ethnic Group | Unknown | + + + Author + + + | Author | [facility] | | | and Rainerana | + + + | Organization | [facility] | | | and [...] [place], [place] | | | | | [address] | | + + + + + | Jelena Hill | ECON | [place], [place] | | | | | [address] | | + + + + + Care Team Providers + +------+ + | Care Superintendent Fish Hatchery Name | Role | Phone | + +------+ + PCP | Unavailable | + +------+ + Encounter Details +--------+ + + + + | Date | Type | Department | Care Team | Description | +--------+ + + + + | 06/07/ | Hospital | [facility] | Forest Moreno MD | | | 2006 | Encounter | MED CTR GENERIC OP | [address], [place] | | | | | CONV DEPT [address] | [address] [place], [place] | | | | | [address] [place], | [address] | | | | | [place] [address] | | | | | | [phone] | | | +--------+ + + + [...] [place] | | | | | | [address] | | | | | | | | +--------+---------+ + + + documented as of this encounter Visit Diagnoses Not on filedocumented in this encounter"
--- OUTSIDE RECORDS SUMMARY | ~2019-10-23 | XMS | Encounter Summary ---
Demographics + + + | Address | [address] | | | [place] [address] | + + + | Home Phone | | + + + | Preferred Language | Unknown | + + + | Marital Status | Single | + + + | Christianity Affiliation | 1077 | + + + | Race | Unknown | + + + | Ethnic Group | Unknown | + + + Author + + + | Author | [facility] | | | and Rainerana | + + + | Organization | [facility] | | | and Rainerana | [...] [place], [place] | | | | | [address] | | + + + + + | Jelena Hill | ECON | [place], [place] | | | | | [address] | | + + + + + Care Team Providers + +------+ + | Care Automobile Relocation Engineer Name | Role | Phone | + +------+ + | Ivy Sun | PCP | | + +------+ + Reason for Visit + + + | Reason | Comments | + + + | Appointment | 1 yr fup due in January | + + + Encounter Details +--------+ + + + + | Date | Type | Department | Care Team | Description | +--------+ + + + + | 11/21/ | Telephone | [facility] | Logan Wolf | Appointment (1 yr | | 2015 | | CARDIOLOGY [address] | MD Missael [address] | fup due in January) | | | | [place], | [address] [place] | | | | | [place] [address] | [place] [address] | | | | | [phone] | [phone] | | | | | | | [...]
--- OUTSIDE RECORDS SUMMARY | ~2019-10-23 | XMS | Encounter Summary ---
Demographics + + + | Address | [address] | | | [place] [address] | + + + | Home Phone | | + + + | Preferred Language | Unknown | + + + | Marital Status | Single | + + + | Zoroastrianism Affiliation | 1077 | + + + | Race | Unknown | + + + | Ethnic Group | Unknown | + + + Author + + + | Author | [facility] | | | and Rainerana | + + + | Organization | [facility] | | | and Rainerana [...] [place], [place] | | | | | [address] | | + + + + + | Jelena Hill | ECON | [place] | | | | | [address] | | + + + + + Care Team Providers + +------+ + | Care Net Wpf Developer Name | Role | Phone | [...] + + | 08/24/ | Telephone | [facility] | Ivy Sun | Results (EK) | | 2013 | | MEDICINE [place] | [address] | | | | | [address] | [place] | | | | | [place] | [address] | | | | | [address] | | | | | | [phone] | | | +--------+ + + + [...]
--- OUTSIDE RECORDS SUMMARY | ~2019-10-23 | XMS | Encounter Summary ---
Demographics + + + | Address | [address] | | | [place] [address] | + + + | Home Phone | | + + + | Preferred Language | Unknown | + + + | Marital Status | Single | + + + | Uatsdin Affiliation | 1077 | + + + | Race | Unknown | + + + | Ethnic Group | Unknown | + + + Author + + + | Author | [facility] | | | and Rainerana | + + + | Organization | [facility] | | | and Rainerana [...] [place], [place] | | | | | [address] | | + + + + + | Jelena Hill | ECON | [place] | | | | | [address] | | + + + + + Care Team Providers + +------+ + | Care Industrial/Organizational Psychologist Name | Role | Phone | + +------+ + | Ivy Sun | PCP | | + +------+ + Reason for Visit + + + | Reason | Comments | + + + | TCM - Hosp FU | | + + + Encounter Details +--------+ + + + + | Date | Type | Department | Care Team | Description | +--------+ + + + + | 05/21/ | Telephone | [facility] | Ivy Sun | TCM - Hosp FU | | 2019 | | MEDICINE [place] | [address] | | | | | [address] | [place] | | | | | [place] | [address] | | | | | [address] | | | | | | [phone] | | | +--------+ + + + [...] [place] | | | | | | [address] | | | | | | | | +--------+---------+ + + + documented as of this encounter Visit Diagnoses Not on filedocumented in this encounter"
--- OUTSIDE RECORDS SUMMARY | ~2019-10-23 | XMS | Encounter Summary ---
Demographics + + + | Address | [address] | | | [place] [address] | + + + | Home Phone | | + + + | Preferred Language | Unknown | + + + | Marital Status | Single | + + + | Voodoo Affiliation | 1077 | + + + | Race | Unknown | + + + | Ethnic Group | Unknown | + + + Author + + + | Author | [facility] | | | and Rainerana | + + + | Organization | [facility] | | | and Rainerana | [...] [place], [place] | | | | | [address] | | + + + + + | Jelena Hill | ECON | [place] | | | | | [address] | | + + + + + Care Team Providers + +------+ + | Care Land Survey Technician Name | Role | Phone | + +------+ + | Ivy Sun | PCP | | + +------+ + Encounter Details +--------+ + + + + | Date | Type | Department | Care Team | Description | +--------+ + + + + | 08/11/ | Hospital | [facility] | SunIvy | Restless legs | | 2011 - | Encounter | [facility] | Rishabh, JUSTYN [address] | syndrome (RLS) | | | | [address] [place] | [place], [place] | | | 08/13/ | | [place], [place] | [address] | | | 2011 | | [address] | | | | | | [phone] | | | +--------+ + + + [...] Take 1 tablet by | 12 | 1 | 07/24/20 | | | (FOSAMAX) 70 mg | mouth Once a week. | tablet | | 12 | 3 | | tablet | | | | | | + + + +---------+ + + | cholecalciferol | Take 2,000 Units by | | 0 | 07/10/20 | | | (VITAMIN D-3) 2000 | mouth Daily. | | | 12 | 3 | | UNITS TABS | | | | | | + + + +---------+ + + | clocortalone | 1 DAUB TOPICALLY | | 0 | 07/10/20 | | | (CLODERM) 0.1 % CREA | TWICE EACH DAY | | | 12 | 4 | + + + +---------+ + + | lisinopril | Take 20 mg by mouth | | 0 | 06/26/20 | | | (PRINIVIL, ZESTRIL) | every morning. | | | 12 | 3 | | 20 mg tablet | | | | | | + + + +---------+ + + | paroxetine (PAXIL) | Take 40 mg by mouth | | 0 | 11/15/19 | | | 40 MG tablet | Daily. | | | 11 | 3 | + + + +---------+ + + | simvastatin | Take 10 mg by mouth | | 0 | 06/12/20 | | | (ZOCOR) 10 mg tablet | Daily. | | | 12 | 3 | + + + +---------+ + + | simvastatin | Take 1 tablet by | 90 | 0 | 07/24/20 | | | (ZOCOR) 10 mg | mouth nightly. | tablet | | 12 | 3 | | tabletIndications: | | | | | | | Hyperlipidemia | | | | | | + + + +---------+ + + | zolpidem (AMBIEN) | Take 0.5 tablets by | 45 | 0 | 07/24/20 | | | 10 mg | mouth nightly as | tablet | | 12 | 3 | | tabletIndications: | needed for Sleep. | | | | | | Insomnia | | | | | | + [...] [place] | | | | | | [address] | | | | | | | | +--------+---------+ + + + documented as of this encounter Procedures + +--------+ + + + | Procedure Name | Priori | Date/Time | Associated Diagnosis | Comments | | | ty | | | | + +--------+ + + + | FERRITIN | Routin | 08/11/2012 | | Results for this | | | e | 11:00 AM | | procedure are in the | | | | PDT | | results section. | + +--------+ + + + | FERRITIN | Routin | 08/11/2012 | Restless legs | Results for this | | | e | 10:26 AM | syndrome (RLS) | procedure are in the | | | | PDT | | results section. | + +--------+ + + + documented in this encounter Results Ferritin (08/11/2012 11:00 AM PDT) + + + + + + | Component | Value | Ref Range | Performed | Pathologist | | | | | At | Signature | + + + + + + | FERRITIN | 21.9Comment: Testing | 11.0 - 306.9 | [facility] | | | | performed on the Lex[facility] | ng/mL | [facility] | | | | [facility] [place] [facility] | | MEDICAL | | | [...] + | [facility] | [address] | [place] | [phone] | | [facility] | | [address] | | | - LABORATORY | | | | + + + + + | [facility] | [address] | [place] | | | [facility] | | [address] | | | - LABORATORY | | | | + + + + + Ferritin (08/11/2012 10:26 AM PDT) + + + + + + | Component | Value | Ref Range | Performed | Pathologist | | | | | At | Signature | + + + + + + | FERRITIN | 21.9Comment: Testing | 11.0 - 306.9 | [facility] | | | | performed on the Lexx | ng/mL | [facility] | | | | [place] [facility] | | MEDICAL | | | [...] + | [facility] | [address] | [place] | [phone] | | [facility] | | [address] | | | - LABORATORY | | | | + + + + + | [facility] | [address] | [place] | | | [facility] | | [address] | | | - LABORATORY | | | | + + + + + documented in this encounter Visit Diagnoses + + | Diagnosis | + + | Restless legs syndrome (RLS) | + + documented in this encounter"
--- OUTSIDE RECORDS SUMMARY | ~2019-10-23 | XMS | Encounter Summary ---
Demographics + + + | Address | [address] | | | [place] [address] | + + + | Home Phone | | + + + | Preferred Language | Unknown | + + + | Marital Status | Single | + + + | Scientology Affiliation | 1077 | + + + | Race | Unknown | + + + | Ethnic Group | Unknown | + + + Author + + + | Author | [facility] | | | and Rainerana | + + + | Organization | [facility] [...] [place], [place] | | | | | [address] | | + + + + + | Jelena Hill | ECON | [place] | | | | | [address] | | + + + + + Care Team Providers + +------+ + | Care Potato Seed Cutter Name | Role | Phone | + [...] Description | +--------+--------+ + + + | 10/22/ | Refill | [facility] | Ivy Sun | Medication Refill | | 2012 | | [facility] [place] | Rishabh, JUSTYN [address] | | | | | [address] | [place], [place] | | | | | [place], [place] | [address] | | | | | [address] | | | | | | [phone] | | | +--------+--------+ + + + [...] 11/23/ | Office | Family Medicine | Dino Ivy | | | 2019 | Visit | | [address]YN [address] | | | | | | [place] | | | | | | [address] | | | | | | | | +--------+---------+ + + + documented as of this encounter Visit Diagnoses + + | Diagnosis | + + | Unspecified vitamin D deficiency - Primary | + + documented in this encounter"
--- OUTSIDE RECORDS SUMMARY | ~2019-10-23 | XMS | Encounter Summary ---
Demographics + + + | Address | [address] | | | [place] [address] | + + + | Home Phone | | + + + | Preferred Language | Unknown | + + + | Marital Status | Single | + + + | Adventist Affiliation | 1077 | + + + | Race | Unknown | + + + | Ethnic Group | Unknown | + + + Author + + + | Author | [facility] | | | and Rainerana | + + + | Organization | [facility] | | | and [...] [place], [place] | | | | | [address] | | + + + + + | Jelena Hill | ECON | [place], [place] | | | | | [address] | | + + + + + Care Team Providers + +------+ + | Care Medical Records Tech Name | Role | Phone | + +------+ + | Ivy Sun | PCP | | + +------+ + Reason for Visit + + + | Reason | Comments | + + + | Procedure | upper back | + + + Evaluate & Treat (Routine) +--------+--------+ + + + + | Status | Reason | Specialty | Diagnoses / | Referred By | Referred To | | | | | Procedures | Contact | Contact | +--------+--------+ + + + + | Closed | | Family | Diagnoses | Sun, | Dino, | | | | Medicine | Neoplasm of | Ivy L, | Ivy L, | | | | | uncertain | OPERATIONS GENERAL AGENT [address] | OPERATIONS GENERAL AGENT [address] | | | | | behavior of | [address] | | | | | skin | [place], | [place], | | | | | Procedures | [place] [address] | [place] [address] | | | | | HI SHAV SKIN | Phone: | Phone: | | | | | LES 6-10MM | [phone] | [phone] | | | | | TRUNK,ARM,LE | Fax: | Fax: | | | | | G | [phone] | [phone] | +--------+--------+ + + + + Encounter Details +--------+ + + + + | Date | Type | Department | Care Team | Description | +--------+ + + + + | 04/09/ | Procedure | [facility] [place] [facility] | Ivy Sun | Neoplasm of | | 2019 | visit | [facility] [place] | JUSTYN Keating [address] | uncertain behavior | | | | [address] | [place] | of skin (Primary Dx) | | | | [place] | [address] | | | | | [address] | | | | | | [phone] | | | +--------+ + + + [...] + + + | Blood Pressure | 118/84 | 04/09/2019 10:48 AM | | | | | PDT | | + + + + + | Pulse | 116 | 04/09/2019 10:48 AM | | | | | PDT | | + + + + + | Temperature | 36.1 C (97 F) | 04/09/2019 10:48 AM | | | | | PDT | | + + + + + | Respiratory Rate | 16 | 04/09/2019 10:48 AM | | | | | PDT | | + + + + + | Oxygen Saturation | 94% | 04/09/2019 10:48 AM | | | | | PDT | | + + + + + | Inhaled Oxygen | - | - | | | Concentration | | | | + + + + + | Weight | 130.3 kg (287 lb 4.2 | 04/09/2019 10:48 AM | | | | oz) | PDT | | + + + + + | Height | 170.2 cm (5' 7") | 04/09/2019 10:48 AM | | | | | PDT | | + + + + + | Body Mass Index | 44.99 | 04/09/2019 10:48 AM | | | | | PDT | | + + + + + documented in this encounter Patient Instructions Patient Instructions Ivy Sun ARNP - 04/09/2019 10:30 AM PDTFormatting of this n ote might be different from the original. Wound Care Keep clean and dry May apply bacitracin ointment. Call your healthcare provider Call your healthcare provider if you see any of the following signs of a problem: Bleeding that soaks the dressing [place] fluid weeping from the wound Increased drainage or drainage that is yellow, yellow-green, or foul-smelling Increased swelling or pain, or redness or swelling in the skin around the wound A change in the color of the wound, or if streaks develop in a direction away from the w ound The area between any stitches opens up An increase in the size of the wound A fever of 100.4F (38C) or higher, or as directed by your healthcare provider Chills, increased fatigue, or a loss of appetite Date Last Reviewed: 04/27/201719990244-4678 [employer]. [address] [place] [address]. All righ ts reserved. This information is not intended as a substitute for professional medical care. Always follow your healthcare professional's instructions. documented in this encounter Progress Notes Ivy Sun ARNP - 04/09/2019 10:30 AM PDTFormatting of this note might be differen t from the original. Lucie Miller is a 68 y.o. female Chief Complaint: Procedure (upper back) HPI Patient presents for removal of a lesion on her left upper back. Lesion will be itchy at times and she messes with it. Shave Biopsy Procedure Note Pre-operative Diagnosis: Suspicious lesion Post-operative Diagnosis: same Locations: left upper back Indications: new lesion, itchy and bothersome PREVENTIVE CARE/PRIOR VISITS 1. Any recommendations from Health Maintenance: adv care directv Preventative Services TOPIC LAST DONE NEXT DUE Adult Annual Wellness Visit 10/01/2018 10/01/2019 Hepatitis C Screening 07/30/2017 Colorectal Cancer Screening (Colonoscopy) 05/22/2011 05/22/2021 Vaccine: Influenza 10/01/2018 Breast Cancer Screening (Ages 50-74) 10/03/2018 10/03/2020 Vaccine: Dtap/Tdap/Td 07/24/2016 07/24/2026 Vaccine: Pneumococcal 65+ Low/Medium Risk 10/01/2018 Vaccine: Zoster 05/13/2013 07/08/2013 2. Any immunizations necessary: none Immunization History Administered Date(s) Administered INFLUENZA 65 Y OR >, TRIVALENT HIGH-DOSE 10/01/2018 INFLUENZA PF 18 Y OR >,TRIVALENT RECOMBINANT [...] Known Allergies Medications: Patient Reported Taking Dosage aspirin (ASPIRIN ADULT LOW STRENGTH) 81 MG EC tablet (Taking) Take 81 mg by mouth Daily. Number of times this order has been changed since signin Order [facility] [place] Blood Glucose Calibration (OT ULTRA/FASTTK CNTRL SOLN) SOLN (Taking) Use to calibrate glu cometer Number of times this order has been changed since signin Order [facility] [place] Blood Glucose Monitoring Suppl (ONE TOUCH ULTRA SYSTEM KIT) w/Device KIT (Taking) Use to check blood sugars 3 times weekly. Number of times this order has been changed since signin Order [facility] [place] cholecalciferol (CHOLECALCIFEROL) 2000 units TABS (Taking) Take 2,000 Units by mouth Tresa y. ferrous sulfate 325 mg tablet (Taking) TAKE ONE TABLET BY MOUTH TWICE A DAY Number of times this order has been changed since signin [facility] [place] gabapentin (NEURONTIN) 600 MG tablet (Taking) TAKE ONE TABLET BY MOUTH NIGHTLY Number of times this order has been changed since signin Order [facility] [place] glucose blood test strips (ONE TOUCH ULTRA TEST) strip (Taking) Test fasting 3 times w eekly, and check 30 min pre and 2 hours post main meal Number of times this order has been changed since signin Order [facility] [place] lisinopril (PRINIVIL, ZESTRIL) 5 mg tablet (Taking) TAKE ONE TABLET BY MOUTH DAILY Number of times this order has been changed since signin [facility] [place] nortriptyline (PAMELOR) 10 MG capsule (Taking) TAKE 3 CAPSULES BY MOUTH NIGHTLY Number of times this order has been changed since signin Order [facility] [place] ONE TOUCH ULTRASOFT LANCETS MISC (Taking) Use to check blood sugars 3 times a week Number of times this order has been changed since signin [facility] [place] oxybutynin (DITROPAN-XL) 10 MG 24 hr tablet (Taking) Take 1 tablet by mouth Daily. Number of times this order has been changed since signin [facility] [place] PARoxetine (PAXIL) 40 MG tablet (Taking) TAKE ONE TABLET BY MOUTH DAILY Number of times this order has been changed since signin Order [facility] [place] rOPINIRole (REQUIP) 2 MG tablet (Taking) TAKE ONE TABLET BY MOUTH NIGHTLY Number of times this order has been changed since signin Order [facility] [place] simvastatin (ZOCOR) 10 mg tablet (Taking) TAKE ONE TABLET BY MOUTH ONCE NIGHTLY Number of times this order has been changed since signin Order [facility] [place] tiZANidine (ZANAFLEX) 2 MG tablet (Taking) TAKE ONE TABLET (2MG) BY MOUTH EVERY 6 TO 8 HO URS NEEDED FOR MUSCLE SPASMS. Number of times this order has been changed since signin [facility] [place] UNABLE TO FIND (Taking) Med Name: Resmed AirSense 10 autoset CPAP: 13-20cm while sleeping . UNCODED MEDICATION (Taking) Diagnosis: Obstructive Sleep Apnea ICD-9: 327.23 Length of Need: 99 Months Number of times this order has been changed since signin [facility] [place] UNCODED MEDICATION (Taking) Wear at all times while sleeping. Number of times this order has been changed since signin Order [facility] [place] Past Medical History She has a past [...] (Left, 07/15/13); Dilation and curettage of uterus (06/03/20); Cholecystectomy (1986); and Dilation and curettage of [...] Last attempt to quit: 11/19/2014 Years since quittin.3 Smokeless tobacco: Never Used Substance and Sexual Activity Alcohol use: Yes Alcohol/week: 0.0 oz Comment: rarely Drug use: No Sexual activity: Yes Partners: Male control/protection: None Social History Narrative Exercise: none Caffeine: diet Mt Dew 12 oz daily Living situation: with significant other Review of Systems Constitutional: Negative for chills, fatigue and fever. HENT: Positive for ear pain (left ear pain). Respiratory: Negative for cough, chest tightness, shortness of breath and wheezing. Cardiovascular: Negative for chest pain and palpitations. Skin: Skin lesion left upper back Neurological: Negative for dizziness, syncope and headaches. Objective: Vitals: 04/09/19 1048 BP: 118/84 Pulse: 116 Resp: 16 Temp: 36.1 C (97 F) TempSrc: Temporal SpO2: 94% Weight: 130.3 kg (287 lb 4.2 oz) Height: 1.702 m (5' 7") Body mass index is 44.99 kg/m. Physical Exam Constitutional: She is oriented to person, place, and time. She appears well-developed and well-nourished. No distress. Appropriately dressed and groomed HENT: Head: Normocephalic and atraumatic. Eyes: Conjunctivae are normal. Musculoskeletal: She exhibits no edema. Neurological: She is alert and oriented to person, place, and time. Skin: Skin is warm and dry. 7 mm raised lesion, rolled border appearance, pink Psychiatric: She has a normal mood and affect. Her behavior is normal. Nursing note and vitals reviewed. Ortho Exam Anesthesia: Lidocaine 1% with epinephrine with added sodium bicarbonate Procedure Details History of allergy to iodine: no Patient informed of the risks (including bleeding and infection) and benefits of the procedure and Written informed consent obtained. The lesion and surrounding area were given a sterile prep using betadyne and draped in the usual sterile fashion. A scalpel was used to shave an area of skin approximately 8 mm. Hemo stasis achieved with alumuninum chloride. Antibiotic ointment and a sterile dressing applied . The specimen was sent for pathologic examination. The patient tolerated the procedure wel l. EBL: 0 ml Findings: Pending pathology Condition: Stable Complications: none Results for orders placed or performed in visit on 03/31/19 POCT Hemoglobin A1c Result Value Ref Range Hemoglobin A1C, POC 6.0 (A) 4.0 - 5.8 % Assessment: 1. Neoplasm of uncertain behavior of skin Surgical Pathology Exam Plans: 1. Neoplasm of uncertain behavior of skin - Instructed to keep the wound dry and covered for 24-48h and clean thereafter. - Warning signs of infection were reviewed. - Recommended that the patient use OTC analgesics as needed for pain. - Return as needed for signs and symptoms of infection. - Surgical Pathology Exam Follow-up: Return if symptoms worsen or fail to improve. Care instructions and warning signs were discussed. Medications per orders. Side effects discussed. Labs and investigations per orders. I Alessandro Davenport RN am acting as a scribe on behalf of, and in the presence of JUSTYN Garibay. Electronically signed by: Alessandro Davenport RN 04/09/19 10:51 I, JUSTYN Babcock personally performed the services described in this documentati on, as scribed by Alessandro Davenport RN in my presence, and are both accurate and complete. Electro nically Signed by: JUSTYN Babcock 04/09/19 16:50 documented in th is encounter Plan of [...] | + +--------+ + + + | SURGICAL PATHOLOGY | Routin | 04/09/2019 | Neoplasm of | Results for this | | EXAM | e | 12:00 AM | uncertain behavior | procedure are in the | | | | PDT | of skin | results section. | + +--------+ + + + documented in this encounter Results Surgical Pathology Exam (04/09/2019 12:00 AM PDT) + + | Specimen | + + | Tissue - Back | | structure, excluding | | neck (body | | structure) | + + + + + | Narrative | Performed At | + + + | SPECIMEN(S): A UPPER BACK SPECIMEN SOURCE: A. UPPER BACK | [facility] | | CLINICAL HISTORY: Shave biopsy; D48.5 (neoplasm of uncertain behavior | [facility] | | of skin) FINAL PATHOLOGIC DIAGNOSIS: Skin, upper back, shave | | | biopsy: - Irritated seborrheic keratosis. LJA:cml:C2NR | | | MICROSCOPIC EXAMINATION: Histologic sections of all submitted blocks | | | are examined by light microscopy. These findings, together with the | | | gross examination, support the pathologic diagnosis. GROSS | | | DESCRIPTION: The specimen, labeled "LE, left upper back," is received | | | in formalin and consists of a 0.8 x 0.6 cm shave of trevizo, granular | | | skin. The specimen is entirely submitted in cassette (A1). AM | | | (under the direct supervision of a pathologist) The Gross | | | Description was prepared using a voice recognition system. The | | | report was reviewed for accuracy; however, sound-alike word errors, | | | addition and/or deletions may occur. If there is any question about | | | this report, please contact Client Services. PERFORMING | | | LABORATORY: The technical component was performed by [facility] | | | [facility], [place] [address] (Linux Network Engineer: | | | Nadia Medina MD; CLIA# [id number]). Professional interpretation was | | | performed by [facility], [place], [address] | | | [address] [place] [id number] (Linux Network Engineer: Roberto Carlos | | | Miles Linn MD; CLIA# [id number]). Diagnostician: Roberto Carlos Linn | | | Pathologist Electronically Signed 04/10/2019 | | + + + + +---------+ + + | Performing | Address | City/State/Zipcode | Phone Number | | Organization | | | | + +---------+ + + | [facility] | | | | | [facility] | | | | + +---------+ + + documented in this encounter Visit Diagnoses + + | Diagnosis | + + | Neoplasm of uncertain behavior of skin - Primary | + + documented in this encounter
--- OUTSIDE RECORDS SUMMARY | ~2019-10-23 | XMS | Encounter Summary ---
Demographics + + + | Address | [address] | | | [place] [address] | + + + | Home Phone [...] | [facility] | | | and Rainerana | + + + | Organization | [facility] | | | and [...] [place], [place] | | | | | [address] | | + + + + + | Jelena Hill | ECON | [place] | | | | | [address] | | + + + + + Care Team Providers + +------+ + | Care Recreation Specialist Name | Role | Phone | + [...] + + | 08/17/ | Office | [facility] | Ivy Sun | Right-sided thoracic | | 2014 | Visit | [facility] [place] | L, PRECISION LATHE OPERATOR [address] | back pain (Primary | | | | [address] | AVE [place] | Dx); Rib pain on | | | | [place] | [address] | right side; Anxious | | | | [address] | | depression; | | | | [phone] | | Osteopenia; History | | | [...] [place] | | | | | | [address] | | | | | | | [...] 2013. PROTOCOL: Bone mineral density was | [facility] | | calculated with dual absorption [...] [address] | [place] | [phone] | | [facility] | | [address] | | | - IMAGING | | [...] pain . COMPARISON: Thoracic spine x-ray | [facility] | | from same date [...] + | [facility] | [address] | [place], [place] | [phone] | | [facility] | | [address] | | | - IMAGING | | [...] + | [facility] | [address] | [place] | [phone] | | [facility] | | [address] | | | - IMAGING | | [...]
--- OUTSIDE RECORDS SUMMARY | ~2019-10-23 | XMS | Encounter Summary ---
Demographics + + + | Address | [address] | | | [place] [address] | + + + | Home Phone | | + + + | Preferred Language | Unknown | + + + | Marital Status | Single | + + + | Mormonism Affiliation | 1077 | + + + | Race | Unknown | + + + | Ethnic Group | Unknown | + + + Author + + + | Author | [facility] | | | and Rainerana | + + + | Organization | [facility] | | [...] [place], [place] | | | | | [address] | | + + + + + | Jelena Hill | ECON | [place] | | | | | [address] | | + + + + + Care Team Providers + +------+ + | Care Log Raft Worker Name | Role | Phone | [...] Aortic root | Logan | [address] | | | | | enlargement | MD Missael | [place], | | | | | (HCC) | [address] | [place] | | | | | Procedures | St [place] | [address] | | | | | ECHO | [place], [place] | Phone: | | | | | Complete | [address] | [phone] | | | | | | Phone: | Fax: | | | | | | [phone] | [phone] | | | | | | Fax: | | | | | | | [phone] | | +--------+--------+ + + + + Encounter Details +--------+ + + + + | Date | Type | Department | Care Team | Description | +--------+ + + + + | 12/18/ | Hospital | [facility] | Josenat Logan | Aortic root | | 2013 | Encounter | MED CTR XRAY [address] | MD Missael [address] | enlargement (HCC) | | | | [address] [place] | [address] [place] | | | | | [place] [address] | [place] [address] | | | | | [phone] | [phone] | | | | | | | [...] + + + +---------+ + + | ergocalciferol | 1 po daily for 7 | 19 | 0 | 10/22/20 | | | (VITAMIN D-2) 50,000 | days, then once | capsule | | 13 | 4 | | units | weekly for 12 weeks | | | | | | capsuleIndications: | | | | | | | Unspecified vitamin | | | | | | | D deficiency | | | | | | + + + +---------+ + + | lisinopril | Take 1 tablet by | 90 | 0 | 09/28/20 | | | (PRINIVIL, ZESTRIL) | mouth every morning. | tablet | | 13 | 4 | | 20 mg tablet | | | | | | + + + +---------+ + + | metFORMIN | Take 1 tablet by | 180 | 1 | 12/09/19 | | | (GLUCOPHAGE) 500 mg | mouth 2 times daily. | tablet | | 14 | 4 | | tablet | | | | | | + + + +---------+ + + | metroNIDAOLE | Apply topically 2 | 60 g | 5 | 10/14/20 | | | (METROCREAM) 0.75 % | times daily. | | | 13 | 5 | | creamIndications: | | | | | | | Rosacea | | | | | | + + + +---------+ + + | nortriptyline | 10 mg po at bedtime | 90 | 5 | 10/14/20 | | | (PAMELOR) 10 MG | week 1. February | capsule | | 13 | 4 | | capsuleIndications: | increase by 10 mg | | | | | | Insomnia, | every week until 30 | | | | | | unspecified | mg at bedtime. | | | | | + + + +---------+ + + | paroxetine (PAXIL) | Take 1 tablet by | 90 | 1 | 05/13/20 | | | 40 MG tablet | mouth Daily. | tablet | | 13 | 4 | + + + +---------+ + + | rOPINIRole | Take 1 tablet by | 90 | 3 | 10/14/20 | | | (REQUIP) 0.5 MG | mouth nightly. | tablet | | 13 | 4 | | tabletIndications: | | | | | | | Restless legs | | | | | | + + + +---------+ + + | simvastatin | Take 1 tablet by | 90 | 1 | 10/14/20 | | | (ZOCOR) 10 mg | mouth nightly. | tablet | | 13 | 4 | | tabletIndications: | | | | [...] [place] | | | | | | [address] | | | | | | | | +--------+---------+ + + + documented as of this encounter Procedures + +--------+ + + + | Procedure Name | Priori | Date/Time | Associated Diagnosis | Comments | | | ty | | | | + +--------+ + + + | ECHO COMPLETE | Routin | 12/18/2013 | Aortic root | Results for this | | | e | 1:43 PM | enlargement (HCC) | procedure are in the | | | | PST | | results section. | + +--------+ + + + documented in this encounter Results ECHO Complete (12/18/2013 1:43 PM PST) + + | Specimen | + + | | + + + + + | Narrative | Performed At | + + + | [facility] | [place] | | Department [facility] [place] | [facility] | | [ rep [address]] [ rep [facility] | | st zip] Signed | - IMAGING | | | | | Patient Name: LUCIE CARRERA Physician: | | | SANDRA. : 1950 Age: 63 Sex: F Unit #: [id number] | | | Exam Date: 12/18/13 [place] [facility] [place] | | Report #: [id number] Page: | | | %(RAD)RES..mtdd.print.filter("pg") of %(RAD) | | | RES..mtdd.print.filter("tpg") | | | | | | Accession Number: [id number] | | | E C H O C A R D I O G R A P H Y R E P O R T | | | HEIGHT: 67" WEIGHT: 257# | | | CARGO WORKER: JAH REFERRING DR: LUCIANO JEAN-BAPTISTE DR: | | | MAXNAT DIAGNOSIS: AO ENLARGEMENT | | | | [...] Transcribed Date/Time: 12/18/2013 14:38 | | | Crop Grain Or Livestock Farmer: <<Signature on File>> | | | S | | | Missael Wolf MD12/28/13 1528 <Electronically signed by S S. | | | Luciano JEFFRIES> S Missael Wolf MD 12/18/13 1343 | | | Crop Grain Or Livestock Farmer: [employer] Rmnsvdhsyknqo91/21/14 [address] | | | Missael Wolf MD | | + + + + + + + + | Performing | Address | City/State/Zipcode | Phone Number | | Organization | | | | + + + + + | [facility] | [address] | [place] | [phone] | | [facility] | | [address] | | | - IMAGING | | | | + + + + + documented in this encounter Visit Diagnoses + + | Diagnosis | + + | Aortic root enlargement (HCC) Aortic ectasia, unspecified site | + + documented in this encounter
--- OUTSIDE RECORDS SUMMARY | ~2019-10-23 | XMS | Encounter Summary ---
Demographics + + + | Address | [address] | | | [place] [address] | + + + | Home Phone | | + + + | Preferred Language | Unknown | + + + | Marital Status | Single | + + + | Pentecostalism Affiliation | 1077 | + + + | Race | Unknown | + + + | Ethnic Group | Unknown | + + + Author + + + | Author | [facility] | | | and Rainerana | + + + | Organization | [facility] | | | and [...] [place], [place] | | | | | [address] | | + + + + + | Jelena Hill | ECON | [place] | | | | | [address] | | + + + + + Care Team Providers + +------+ + | Care Food Order Expediter Name | Role | Phone | + +------+ + | Ivy Sun | PCP | | + +------+ + Encounter Details +--------+ + + + + | Date | Type | Department | Care Team | Description | +--------+ + + + + | 11/19/ | Abstract | [facility] | Ivy Sun | | | 2014 | | MEDICINE [place] | L, STEEL 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 | + +--------+ + + + | EXTERNAL LAB: | Routin | 11/09/2014 | | Results for this | | ALBUMIN | e | | | procedure are in the | | | | | | results section. | + +--------+ + + + | EXTERNAL LAB: | Routin | 11/09/2014 | | Results for this | | CALCIUM | e | | | procedure are in the | | | | | | results section. | + +--------+ + + + | EXTERNAL LAB: CARBON | Routin | 11/09/2014 | | Results for this | | DIOXIDE | e | | | procedure are in the | | | | | | results section. | + +--------+ + + + | EXTERNAL LAB: | Routin | 11/09/2014 | | Results for this | | CHLORIDE | e | | | procedure are in the | | | | | | results section. | + +--------+ + + + | EXTERNAL LAB: | Routin | 11/09/2014 | | Results for this | | POTASSIUM | e | | | procedure are in the | | | | | | results section. | + +--------+ + + + | EXTERNAL LAB: SODIUM | Routin | 11/09/2014 | | Results for this | | | e | | | procedure are in the | | | | | | results section. | + +--------+ + + + | EXTERNAL LAB: EGFR | Routin | 11/09/2014 | | Results for this | | | e | | | procedure are in the | | | | | | results section. | + +--------+ + + + | EXTERNAL LAB: | Routin | 11/09/2014 | | Results for this | | CREATININE | e | | | procedure are in the | | | | | | results section. | + +--------+ + + + documented in this encounter Results External Lab: Glucose (11/09/2014) + +-------+ + + + | Component | Value | Ref Range | Performed | Pathologist | | | | | At | Signature | + +-------+ + + + | Glucose, | 90 | | | | | External | | | | | + +-------+ + + + External Lab: Albumin (11/09/2014) + +-------+ + + + | Component | Value | Ref Range | Performed | Pathologist | | | | | At | Signature | + +-------+ + + + | Albumin, | 3.9 | | | | | External | | | | | + +-------+ + + + External Lab: Calcium (11/09/2014) + +-------+ + + + | Component | Value | Ref Range | Performed | Pathologist | | | | | At | Signature | + +-------+ + + + | Calcium, | 9.5 | | | | | External | | | | | + +-------+ + + + External Lab: Carbon Dioxide (11/09/2014) + +-------+ + + + | Component | Value | Ref Range | Performed | Pathologist | | | | | At | Signature | + +-------+ + + + | Carbon | 25 | | | | | Dioxide, | | | | | | External | | | | | + +-------+ + + + External Lab: Chloride (11/09/2014) + +-------+ + + + | Component | Value | Ref Range | Performed | Pathologist | | | | | At | Signature | + +-------+ + + + | Chloride, | 101 | | | | | External | | | | | + +-------+ + + + External Lab: Potassium (11/09/2014) + +-------+ + + + | Component | Value | Ref Range | Performed | Pathologist | | | | | At | Signature | + +-------+ + + + | Potassium, | 4.0 | | | | | External | | | | | + +-------+ + + + External Lab: Sodium (11/09/2014) + +-------+ + + + | Component | Value | Ref Range | Performed | Pathologist | | | | | At | Signature | + +-------+ + + + | Sodium, | 137 | | | | | External | | | | | + +-------+ + + + External Lab: eGFR (11/09/2014) + +-------+ + + + | Component | Value | Ref Range | Performed | Pathologist | | | | | At | Signature | + +-------+ + + + | eGFR, | 66 | | | | | External | | | | | + +-------+ + + + | eGFR, | | | | | | | | | | | | Moldovan, | | | | | | External | | | | | + +-------+ + + + + + | Specimen | + + | Blood specimen | | (specimen) | + + External Lab: Creatinine (11/09/2014) + +-------+ + + + | Component | Value | Ref Range | Performed | Pathologist | | | | | At | Signature | + +-------+ + + + | Creatinine, | 0.87 | | | | | External | | | | | + +-------+ + + + + + | Specimen | + + | Blood specimen | | (specimen) | + + documented in this encounter Visit Diagnoses Not on filedocumented in this encounter"
--- OUTSIDE RECORDS SUMMARY | ~2019-10-23 | XMS | Encounter Summary ---
Demographics + + + | Address | [address] | | | [place] [address] | + + + | Home Phone | | + + + | Preferred Language | Unknown | + + + | Marital Status | Single | + + + | Mandaen Affiliation | 1077 | + + + | Race | Unknown | + + + | Ethnic Group | Unknown | + + + Author + + + | Author | [facility] | | | and Rainerana | + + + | Organization | [facility] | | [...] [place], [place] | | | | | [address] | | + + + + + | Jelena Hill | ECON | [place] | | | | | [address] | | + + + + + Care Team Providers + +------+ + | Care Animal Care Provider Name | Role | Phone | + +------+ + | Ivy Sun | PCP | | + +------+ + Reason for Visit +---------+ + | Reason | Comments | +---------+ + | Results | | +---------+ + Encounter Details +--------+ + + + + | Date | Type | Department | Care Team | Description | +--------+ + + + + | 04/09/ | Telephone | [facility] | Ivy Sun | Results | | 2016 | | MEDICINE [place] | JUSTYN Keating [address] | | | | | [address] | [place] | | | | | [place], [place] | [address] | | | | | [address] | | | | | | [phone] | | | +--------+ + + + [...] | | | | | | [place] | | | | | | [address] | | | | | | | | +--------+---------+ + + + documented as of this encounter Visit Diagnoses + + | Diagnosis | + + | Urinary tract infection, site unspecified - Primary | + + documented in this encounter"
--- OUTSIDE RECORDS SUMMARY | ~2019-10-23 | XMS | Encounter Summary ---
Demographics + + + | Address | [address] | | | [place] [address] | + + + | Home Phone | | + + + | Preferred Language | Unknown | + + + | Marital Status | Single | + + + | Presybeterian Affiliation | 1077 | + + + | Race | Unknown | + + + | Ethnic Group | Unknown | + + + Author + + + | Author | [facility] | | | and Rainerana | + + + | Organization | [facility] | | [...] [place], [place] | | | | | [address] | | + + + + + | Jelena Hill | ECON | [place] | | | | | [address] | | + + + + + Care Team Providers + +------+ + | Care Heat Sealing Machine Operator Name | Role | Phone | + [...] Medicine | Restless | Reymundo Allen | [place] [address] | | | Required | | legs | MD Ivy [address] | [place] | | | | | syndrome | [place] | [place], | | | | | [place] | [address] [facility] | [place] [address] | | | | | (obstructive | [facility], [place] | Phone: | | | | | sleep | [address] | [phone] | | | | | apnea) | Phone: | Fax: | | | | | Procedures | [phone] | [phone] | | | | | [place] POLYSOM | Fax: | | | | | | 6/>YRS SLEEP | [phone] | | | | | | W/CPAP 4/> | | | | | | | ADDL ANNA | | | | | | | ATTND [place] | | | | | | | [...] | +--------+ + + + + | 02/09/ | Hospital | [facility] | Reymundo Guillory | Obstructive sleep | | 2018 - | Encounter | MED CTR SLEEP | MD Ivy [address] | apnea; Restless legs | | | | CENTER [address] | [address] [place] | syndrome | | 02/10/ | | [place] | [place] [address] | | | 2018 | | [address] | [phone] | | | | | [phone] | | | +--------+ + + + [...] 0 | | | | (VITAMIN D3) [address] | mouth Once a week. | | | | 9 | | units TABS | | | | | | + + + +---------+ + + | ferrous sulfate | Take 1 tablet by | 60 | 2 | 01/03/20 | | | 325 mg | mouth 2 times daily. | tablet | | 18 | 9 | | tabletIndications: | | | | | | | Low ferritin, | | | | | | | Restless legs | | | | | | | syndrome | | | | | | + [...] [place] | | | | | | [address] | | | | | | | | +--------+---------+ + + + documented as of this encounter Procedures + +--------+ + + + | Procedure Name | Priori | Date/Time | Associated Diagnosis | Comments | | | ty | | | | + +--------+ + + + | SLEEP STUDY PAP | Routin | 02/22/2018 | | Results for this | | TITRATION | e | 12:07 PM | | procedure are in the | | | | PDT | | results section. | + +--------+ + + + | SLEEP STUDY PAP | Routin | 02/22/2018 | | Results for this | | TITRATION | e | 12:07 PM | | procedure are in the | | | | PDT | | results section. | + +--------+ + + + documented in this encounter Results Sleep study PAP titration (02/22/2018 12:07 PM PDT) + + + | Narrative | Performed At | + + + | Reymundo Allen | | | Kahlil Haynes MD 02/22/2018 12:15 [facility] | | | [place] [address] | | | Positive Airway Pressure Titration Report on Lucie Miller | | | performed on February 09, 2018. Clinical Information: Lucie Miller | | | is a 67 y.o. female who underwent polysomnographically guided PAP on | | | February 09, 2018. The patient was diagnosed with obstructive sleep | | | apnea several years ago. She was intolerant of positive airway | | | pressure at that time. Most recently diagnostic nocturnal | | | polysomnography has been performed on December 25, 2017. This | | | demonstrated a very fragmented sleep and an Apnea Hypopnea Index index | | | of 55.2. This was associated with a cleve oxygen saturation of 78% | | | and the patient spent 31.2 minutes with an oxygen saturation of less | | | than 88%. Technical Information: Please see technical data which [...] | | Lights out was recorded at 2340 hundred hours on February 09, 2018 and | | | lights on was recorded at 0837 hundred hours on February 10, 2018. The | | | latency to sleep onset was normal at 9 minutes. The patient slept for | | | 481 minutes out of 537.5 minutes of study time resulting an a sleep | | | efficiency that was normal at 89.5 %. The amount of N1 sleep was | | | normal at 2.5 % of the Total Sleep Time; the amount of N2 sleep was | | | increased at 96.7 % of the Total Sleep Time; the amount of N3 sleep | | | was low at 0.8 % of the Total Sleep Time; the amount of REM sleep was | | | low at 0% of the Total Sleep Time. This is very similar to the | | | results seen on her diagnostic nocturnal polysomnogram on December 25, | | | 2017. Sleep was recorded in the following positions: left lateral | | | decubitus 21.9%, right lateral decubitus 0%, supine 78.1%, prone 0%. | | | Sleep was fragmented; the Arousal Index was 29.1. The patient reported | | | this to be worse than a "usual" night's sleep. Sleep was less | | | fragmented than it was in her diagnostic study but otherwise sleep | | | architecture showed no significant change in response to positive | | | airway pressure Cardiopulmonary Monitoring: The heart rate averaged in | | | the 90s beats per minute. Mild rate variability was noted. The | | | rhythm was sinus tachycardia. In the course of the evening the patient | | | started at CPAP of 5 cm was titrated to 17 cm. It appears however | | | that CPAP of 13 cm and higher is likely to provide satisfactory | | | control of obstructive sleep apnea and significant improvement in | | | oxygen desaturation. Limb Movement Monitoring: There were 0 Periodic | | | Limb Movements (PLMS Index 0) of which 0 were associated with | | | arousals; the PLMS Arousal Index was normal at 0. Interpretation: This | | | is a satisfactory CPAP titration study. CPAP in the 13-17 cm range | | | appears to be required for control of obstructive sleep apnea and | | | improvement in oxygen desaturation.The very low amounts of stage in 3 | | | sleep and REM sleep which was seen on the diagnostic study also are of | | | unexplained etiology it is conceivable this could be at least in part | | | secondary to medications (gabapentin, methocarbamol, nortriptyline, | | | paroxetine). Suggestions:1. The principles of Sleep Hygiene should be | | | reviewed with the patient.2. Auto-Titrating CPAP 13-20cm is advised. | | | Reymundo Guillory Jr., MD, [facility]ITALSMMedical DirectorHenry Ford Hospitalrut | | | [facility] | | | [place] DoClinical Assistant Credit Manager of MedicineHe[facility] Center | | | [place], [place] | | |change in response to positive airway pressure | | | | | |Cardiopulmonary Monitoring: The heart rate averaged in the 90s | | |beats per minute. Mild rate variability was noted. The rhythm | | |was sinus tachycardia. | | | | | |In the course of the evening the patient started at CPAP of 5 cm | | |was titrated to 17 cm. It appears however that CPAP of 13 cm and | | |higher is likely to provide satisfactory control of obstructive | | |sleep apnea and significant improvement in oxygen desaturation. | | | | | |Limb Movement Monitoring: There were 0 Periodic Limb Movements | | |(PLMS Index 0) of which 0 were associated with arousals; the PLMS | | |Arousal Index was normal at 0. | | | | | |Interpretation: This is a satisfactory CPAP titration study. | | | | | |CPAP in the 13-17 cm range appears to be required for control of | | |obstructive sleep apnea and improvement in oxygen desaturation. | | |The very low amounts of stage in 3 sleep and REM sleep which was | | |seen on the diagnostic study also are of unexplained etiology it | | |is conceivable this could be at least in part secondary to | | |medications (gabapentin, methocarbamol, nortriptyline, | | |paroxetine). | | | | | |Suggestions: | | |1. The principles of Sleep Hygiene should be reviewed with the | | |patient. | | |2. Auto-Titrating CPAP 13-20cm is advised. | | | | | |Reymundo Guillory Jr., MD, [facility] | | |Software Development Project Manager | | |[facility] | | |[facility] | | |[place] | | |Clinical salad bar clerk | | |[facility] | | |[place], [place] | | + + + + + | Procedure Note | + + | Reymundo Guillory Jr., MD - 02/22/2018 12:07 PM PDT [facility] | | Disorders [place], [place] [id number] Airway Pressure | | Titration Report on Lucie iMller performed on February 09, 2018.Clinical Information: | | Lucie Mliler is a 67 y.o. female who underwent polysomnographically guided PAP on | | February 09, 2018. The patient was diagnosed with obstructive sleep apnea several years | | ago. She was intolerant of positive airway pressure at that time. Most recently | | diagnostic nocturnal polysomnography has been performed on December 25, 2017. This | | demonstrated a very fragmented sleep and an Apnea Hypopnea Index index of 55.2. This | | was associated with a cleve oxygen saturation of 78% and the patient spent 31.2 minutes | | with an oxygen saturation of less than 88%.Technical Information: Please see technical | | data which is attached.Definitions (The AASM Manual for the Scoring of Sleep and | | Associated Events, Version 2.4; 2017): [...] Lights out was | | recorded at 2340 hundred hours on February 09, 2018 and lights on was recorded at 0837 | | hundred hours on February 10, 2018. The latency to sleep onset was normal at 9 minutes. The | | patient slept for 481 minutes out of 537.5 minutes of study time resulting an a sleep | | efficiency that was normal at 89.5 %. The amount of N1 sleep was normal at 2.5 % of the | | Total Sleep Time; the amount of N2 sleep was increased at 96.7 % of the Total Sleep | | Time; the amount of N3 sleep was low at 0.8 % of the Total Sleep Time; the amount of REM | | sleep was low at 0% of the Total Sleep Time. This is very similar to the results seen | | on her diagnostic nocturnal polysomnogram on December 25, 2017.Sleep was recorded in the | | following positions: left lateral decubitus 21.9%, right lateral decubitus 0%, supine | | 78.1%, prone 0%.Sleep was fragmented; the Arousal Index was 29.1.The patient reported | | this to be worse than a "usual" night's sleep. Sleep was less fragmented than it was in | | her diagnostic study but otherwise sleep architecture showed no significant change in | | response to positive airway pressureCardiopulmonary Monitoring: The heart rate averaged | | in the 90s beats per minute. Mild rate variability was noted. The rhythm was sinus | | tachycardia.In the course of the evening the patient started at CPAP of 5 cm was | | titrated to 17 cm. It appears however that CPAP of 13 cm and higher is likely to | | provide satisfactory control of obstructive sleep apnea and significant improvement in | | oxygen desaturation. Limb Movement Monitoring: There were 0 Periodic Limb Movements | | (PLMS Index 0) of which 0 were associated with arousals; the PLMS Arousal Index was | | normal at 0.Interpretation: This is a satisfactory CPAP titration study.CPAP in the | | 13-17 cm range appears to be required for control of obstructive sleep apnea and | | improvement in oxygen desaturation.The very low amounts of stage in 3 sleep and REM | | sleep which was seen on the diagnostic study also are of unexplained etiology it is | | conceivable this could be at least in part secondary to medications (gabapentin, | | methocarbamol, nortriptyline, paroxetine).Suggestions:1. The principles of Sleep Hygiene | | should be reviewed with the patient.2. Auto-Titrating CPAP 13-20cm is advised.Reymundo | | Carter Guillory Jr., MD, [facility] SYSTEMMedical DirectorHenry Ford HospitalrutK[facility] | | [facility] Cook Hospitalinical Assistant Credit Manager of | | [place], [place] | |Clinical salad bar clerk | |[facility] | |[place], [place] | + + documented in this encounter Visit Diagnoses + + | Diagnosis | + + | Obstructive sleep apnea Obstructive sleep apnea (adult) (pediatric) | + + | Restless legs syndrome Restless legs syndrome (RLS) | + + documented in this encounter
--- OUTSIDE RECORDS SUMMARY | ~2019-10-23 | XMS | Encounter Summary ---
Demographics + + + | Address | [address] | | | [place] [address] | + + + | Home Phone | | + + + | Preferred Language | Unknown | + + + | Marital Status | Single | + + + | Sikh Affiliation | 1077 | + + + | Race | Unknown | + + + | Ethnic Group | Unknown | + + + Author + + + | Author | [facility] | | | and Rainerana | + + + | Organization | [facility] | | | and [...] [place], [place] | | | | | [address] | | + + + + + | Jelena Hill | ECON | [place] | | | | | [address] | | + + + + + Care Team Providers + +------+ + | Care Mechanic Driver Name | Role | Phone | + +------+ + | Ivy Sun | PCP | | + +------+ + Reason for Visit + + + | Reason | Comments | + + + | Lab Order | | + + + Encounter Details +--------+ + + + + | Date | Type | Department | Care Team | Description | +--------+ + + + + | 09/04/ | Telephone | [facility] | Ivy Sun | Lab Order | | 2018 | | [facility] | [address] | | | | | [address] | [place] | | | | | [place] | [address] | | | | | [address] | | | | | | [phone] | | | +--------+ + + + [...] 11/23/ | Office | Family Medicine | [facility] | | | 2019 | Visit | | [address] | | | | | | [place] | | | | | | [address] | | | | | | | | +--------+---------+ + + + + +------+--------+ + + | Name | Type | Priori | Associated Diagnoses | Order Schedule | | | | ty | | | + +------+--------+ + + | Lipid Panel | Lab | Routin | Mixed | 1 Occurrences | | | | e | hyperlipidemia | starting 09/08/2018 | | | | | | until 09/05/2019 | + +------+--------+ + + documented as of this encounter Results Comprehensive Metabolic Panel (07/22/2019 11:46 AM PDT) + + + + + + | Component | Value | Ref Range | Performed | Pathologist | | | | | At | Signature | + + + + + + | Na | 139 | 136 - 145 | [facility] | | | | | mmol/L | [facility] | | | | | [facility] | | | | | [facility] | | | | | | [facility] | | + + + + + + | K | 4.3 | 3.5 - 5.1 | [facility] | | | | | mmol/L | [facility] | | | | | [facility] | | | | | | [facility] | | | | | | LAB[facility] | | + + + + + + | Cl | 103 | 98 - 107 mmol/L | [facility] | | | | | | [facility] | [facility] | [facility] | | | | | [facility] | | | | | | [facility] | | + + + + + + | CO2 | 24 | 21 - 32 mmol/L | [facility] | | | | | | [facility] | [facility] | [facility] | | | | | [facility] | | | | | | [facility] | | + + + + + + | Anion Gap | 12 | 2 - 16 mmol/L | [facility] | | | | | | [facility] | [facility] | [facility] | | | | | [facility] | | | | | | [facility] | | + + + + + + | Glucose | 117 (H) | 74 - 106 mg/dL | [facility] | | | | | | [facility] | [facility] | [facility] | | [facility] | | [facility] | | | | | | LAB[facility] | | + + + + + + | BUN | 15 | 7 - 18 mg/dL | [facility] | | | | | | [facility] | | | | | [facility] | | | | | | [facility] | | + + + + + + | Creatinine | 0.90 | 0.55 - 1.02 | [facility] | | | | | mg/dL | [facility] | | | | | | [facility] | | | | | | [facility] | | | | | | LAB[facility]ATORY | | + + + + + + | eGFR if not | >60Comment: GLOMERULAR | >=60 | [facility] | | | | FILTRATION | mL/min/1.73m2 | [facility] | | | SAM[place]ESE | RATE,ESTIMATED | | MEDICAL | | | | mL/min/1.77v2Omer than | | PARK | | | | 60 Chronic kidney | | LABORATORY | | | | disease,if found over a | | | | | | 3-month period.Less than | | | | | | 15 Kidney failureFor | | | | | | | | | | | | Americans,multiply the | | | | | | calculated GFR by 1.21. | | | | | | | | | | + + + + + + | Calcium | 9.0 | 8.5 - 10.1 | [facility] | | | | | mg/dL | [facility] | | | | | | [facility] | | | | | | [facility] | | | | | | LAB[facility] | | + + + + + + | Albumin | 3.4 | 3.4 - 5.0 g/dL | [facility] | | | | | | [facility] | | | | | [facility] | | | | | | [facility] | | | | | | LAB[facility] | | + + + + + + | Bilirubin | 0.5 | 0.2 - 1.0 mg/dL | [facility] | | | Total | | | [facility] | | | | | | [facility] | | | | | | [facility] | | | | | | LAB[facility] | | + + + + + + | Total | 7.8 | 6.4 - 8.2 g/dL | [facility] | | | Protein | | | [facility] | | | | | | [facility] | | | | | | [facility] | | | | | | LAB[facility]AT[facility] | | + + + + + + | AST | 32 | 15 - 37 U/L | [facility] | | | | | | [facility] | | [facility] | | [facility] | | | | | | [facility] | | | | | | LAB[facility] | | + + + + + + | ALT | 36 | 14 - 59 U/L | [facility] | | | | | | [facility] | | [facility] | | [facility] | | | | | | [facility] | | | | | | LAB[facility]AT[facility] | | + + + + + + | Alkaline | 104 | 46 - 116 U/L | [facility] | | | Phosphatase | | | [facility] | | | | | | [facility] | | | | | | [facility] | | | | | | LAB[facility] | | + + + + + + | Globulin | 4.4 (H) | 2.1 - 3.8 g/dL | [facility] | | | | | | [facility] | [facility] | [facility] | | | | | [facility] | | | | | | LAB[facility] | | + + + + + + | Albumin/Cindy | 0.8 | 0.8 - 2.0 | [facility] | | | bulin Ratio | | | [facility] | | | | | [facility] | | | | | | [facility] | | | | | | LAB[facility]ATORY | | + + + + + + | BUN/Creatin | 16.7 | | [facility] | | | ine Ratio | | | [facility] | | | | | | [facility] | | | | | | [facility] | | | | | | LAB[facility]ATORY | | + + + + + + + + | Specimen | + + | Blood | + + + + + + + | Performing | Address | City/State/Zipcode | Phone Number | | Organization | | | | + + + + + | [facility] | [address] | [place] | [phone] | | [facility] | | [address] | | | [facility] | | | | + + + + + Urinalysis with Microscopic if Indicated (11/12/2018 10:15 AM PST) + + + + + + | Component | Value | Ref Range | Performed | Pathologist | | | | | At | Signature | + + + + + + | Color | Agatha (A) | Light Yellow, | [facility] | | | | | Yellow, Straw | [facility] | | | | | | [facility] | | | | | | C[facility] - | | | | | | LABORATORY | | + + + + + + | Clarity | Turbid (A) | Clear | [facility] | | | | | | [facility] | | | | | | [facility] | | | | | | C[facility] - | | | | | | LABORATORY | | + + + + + + | pH, Urine | 5.0 | 5.0 - 8.0 | [facility] | | | | | | [facility] | | | | | | [facility] | | | | | | C[facility] - | | | | | | LABORATORY | | + + + + + + | Specific | 1.025 | 1.001 - 1.030 | [facility] | | | [place] | | | [facility] | | | | | | [facility] | | | | | | CENTER - | | | | | | LABORATORY | | + + + + + + | Protein, | Negative | Negative | [facility] | | | Urine | | | [facility] | | | | | | [facility] | | | | | | CENTER - | | | | | | LABORATORY | | + + + + + + | Blood, | Negative | Negative | [facility] | | | Urine | | | [facility] | | | | | | MEDICAL | | | | | | CENTER - | | | | | | LABORATORY | | + + + + + + | Glucose, | Negative | Negative | [facility] | | | Urine | | | [facility] | | | | | | MED[facility] | | | | | | CENTER - | | | | | | LABORATORY | | + + + + + + | Ketones, | Negative | Negative | [facility] | | | Urine | | | [facility] | | | | | | MEDICAL | | | | | | CENTER - | | | | | | LABORATORY | | + + + + + + | Bilirubin, | Negative | Negative | [facility] | | | Urine | | | [facility] | | | | | | MEDICAL | | | | | | CENTER - | | | | | | LABORATORY | | + + + + + + | Nitrite, | Negative | Negative | [facility] | | | Urine | | | [facility] | | | | | | MEDICAL | | | | | | CENTER - | | | | | | LABORATORY | | + + + + + + | Leukocyte | Trace (A) | Negative | [facility] | | | Esterase, | | | [facility] | | | Urine | | | MEDICAL | | | | | | CENTER - | | | | | | LABORATORY | | + + + + + + | Urobilinoge | Negative | 0.2 mg/dL, 1.0 | [facility] | | | n, Urine | | mg/dL, Negative | [facility] | | | | | | MEDICAL | | | | | | CENTER - | | | | | | LABORATORY | | + + + + + + | WBC UA | 10-15 (A) | 0 - 2 /HPF | [facility] | | | | | | [facility] | | | | | | MED[facility] | | | | | | CENTER - | | | | | | LABORATORY | | + + + + + + | RBC UA | 0-2 | 0 - 2 /HPF | [facility] | | | | | | [facility] | | | | | | MED[facility] | | | | | | CENTER - | | | | | | LABORATORY | | + + + + + + | SQUAMOUS | 0-2 | 0 - 2 /LPF | [facility] | | | EPITHELIAL | | | [facility] | | | UA | | | MEDICAL | | | | | | CENTER - | | | | | | LABORATORY | | + + + + + + | BACTERIA UA | Negative | Negative /HPF | [facility] | | | | | | [facility] | | | [facility] | | [facility] | | | | | | CENTER - | | | | | | LABORATORY | | + + + + + + | MUCUS UA | Present (A) | Negative /LPF | [facility] | | | | | | [facility] | | | | | | [facility] | | | | | | CENTER - | | | | | | LABORATORY | | + + + + + + + + | Specimen | + + | Urine | + + + + + + + | Performing | Address | City/State/Zipcode | Phone Number | | Organization | | | | + + + + + | [facility] | [address] | [place] | [phone] | | [facility] | | [address] | | | - LABORATORY | | | | + + + + + documented in this encounter Visit Diagnoses + + | Diagnosis | + + | Mixed hyperlipidemia - Primary | + + | Impaired fasting glucose | + + | Essential hypertension Unspecified essential hypertension | + + documented in this encounter"
--- OUTSIDE RECORDS SUMMARY | ~2019-10-23 | XMS | Encounter Summary ---
Demographics + + + | Address | [address] | | | [place] [address] | + + + | Home Phone | | + + + | Preferred Language | Unknown | + + + | Marital Status | Single | + + + | Baptism Affiliation | 1077 | + + + | Race | Unknown | + + + | Ethnic Group | Unknown | + + + Author + + + | Author | [facility] | | | and Rainerana | + + + | Organization | [facility] | | | [...] [place], [place] | | | | | [address] | | + + + + + | Jelena [address] | ECON | [place] | | | | | [address] | | + + + + + Care Team Providers + +------+ + | Care Plant Floor Automation Manager Name | Role | Phone | + +------+ + | Ivy Sun | PCP | | + +------+ + Encounter Details +--------+ + + + + | Date | Type | Department | Care Team | Description | +--------+ + + + + | 09/24/ | Hospital | [facility] | Calderon Shaw, | Lumbar | | 2016 | Encounter | MED [facility] XRAY [address] | PA-C [address] | radiculopathy; Low | | | | [place] | [address] [place] | back pain | | | | [place] [address] | [place] [address] | potentially | | | | [phone] | [phone] | associated with | | | | | | spinal stenosis | +--------+ + + + + Social [...] tablet by | 90 | 3 | 09/07/20 | | | (NEURONTIN) 600 MG | mouth nightly. | tablet | | 15 | 7 | | tabletIndications: | | | | | | | Compression fracture | | | | | | | of thoracic | | | | | | | vertebra, | | | | | | | non-traumatic, with | | | | | | | routine healing, | | | | | | | subsequent | | | | | | | encounter, Fracture | | | | | | | of one rib of right | | | | | | | side with routine | | | | | | | healing, subsequent | | | | | | | encounter | | | | | | [...] + + + +---------+ + + | lidocaine | Place 1 patch onto | | 0 | 07/20/20 | | | (LIDODERM) 5% patch | the skin Daily. | | | 16 | 7 | + + + +---------+ + + [...] + + + +---------+ + + | Meloxicam (MOBIC | Take by mouth. | | 0 | | | | PO) | | | | | 7 | + + + +---------+ + + | metFORMIN | TAKE ONE TABLET BY | 90 | 0 | 08/17/20 | | | (GLUCOPHAGE) 500 mg | MOUTH DAILY WITH | tablet | | 16 | 7 | | tablet | BREAKFAST | | | | | + + + +---------+ + + | methocarbamol | Take 1 tablet by | 120 | 0 | 08/02/20 | | | (ROBAXIN) 500 mg | mouth 4 times daily. | tablet | | 16 | 7 | | tabletIndications: | | | | | | | Acute midline | | | | | | | thoracic back pain | | | | | | + + + +---------+ + + | nortriptyline | TAKE THREE CAPSULES | 270 | 0 | 08/17/20 | | | (PAMELOR) 10 MG | BY MOUTH NIGHTLY | capsule | | 16 | 7 | | capsule | | | | | | + + + +---------+ + + | PARoxetine (PAXIL) | TAKE ONE TABLET BY | 90 | 1 | 07/30/20 | | | 40 MG tablet | MOUTH DAILY | tablet | | 16 | 7 | + + + +---------+ + + | rOPINIRole | TAKE ONE TABLET BY | 90 | 0 | 08/17/20 | | | (REQUIP) 2 MG tablet | MOUTH NIGHTLY | tablet | | 16 | 7 | + + + +---------+ + + | simvastatin | TAKE ONE TABLET BY | 90 | 2 | 10/04/20 | | | (ZOCOR) 10 mg tablet | MOUTH ONCE NIGHTLY | tablet | | 15 | 7 | + + + +---------+ + + [...] [place] | | | | | | [id number] | | | | | | | | +--------+---------+ + + + documented as of this encounter Procedures + +--------+ + + + | Procedure Name | Priori | Date/Time | Associated Diagnosis | Comments | | | ty | | | | + +--------+ + + + | XR LUMBAR SPINE 4 + | Routin | 09/24/2016 | Lumbar | Results for this | | VW | e | 12:41 PM | radiculopathy Low | procedure are in the | | | | PST | back pain | results section. | | | | | potentially | | | | | | associated with | | | | | | spinal stenosis | | + +--------+ + + + documented in this encounter Results XR Lumbar Spine 4 + Vw (09/24/2016 12:41 PM PST) + + | Specimen | + + | | + + + + + | Narrative | Performed At | + + + | EXAM:XR LUMBAR SPINE 4 + VW CLINICAL HISTORY: Back pain | [facility] | | COMPARISON: MRI of the same day. Outside lumbar spine radiograph | [facility] | | dated July 16, 2016. FINDINGS: 4 views of the lumbar spine. | MEDICAL CENTER | | 5 nonrib-bearing lumbar-type vertebral bodies. Partial | - IMAGING | | ossification of the iliolumbar ligaments bilaterally. Mild | | | levoconvex curvature may be positional. There is anterolisthesis of | | | L4 by approximately 12 mm. Slight retrolisthesis of L3. Fusion | | | across the L5-S1. Mild superior endplate deformity of L4. | | | Mild/moderate disc narrowing at L3-L4 and L4-L5. Moderate | | | compression deformity of T12. Diffuse demineralization. Facet | | | arthrosis is diffuse. There is no abnormal translation with flexion | | | or extension. IMPRESSION - Cervical spondylosis and | | | spondylolisthesis. Diffuse demineralization. Dictated and | | | Signed by: Forest Manley MD Electronically signed: 09/24/2016 | | | 2:17 PM | | + + + + + | Procedure Note | + + | Yohannes, Rad Results In - 09/24/2016 2:20 PM PST EXAM:XR LUMBAR SPINE 4 + VW | | | | CLINICAL HISTORY: Back pain | | | | COMPARISON: MRI of the same day. Outside lumbar spine radiograph dated | | July 16, 2016. | | | | FINDINGS: 4 views of the lumbar spine. | | | | 5 nonrib-bearing lumbar-type vertebral bodies. Partial ossification of the | | iliolumbar ligaments bilaterally. Mild levoconvex curvature may be positional. | | There is anterolisthesis of L4 by approximately 12 mm. Slight retrolisthesis of | | L3. Fusion across the L5-S1. Mild superior endplate deformity of L4. | | Mild/moderate disc narrowing at L3-L4 and L4-L5. Moderate compression deformity | | of T12. Diffuse demineralization. Facet arthrosis is diffuse. There is no | | abnormal translation with flexion or extension. | | | | IMPRESSION - | | | | Cervical spondylosis and spondylolisthesis. | | | | Diffuse demineralization. | | | | Dictated and Signed by: Forest Manley MD | | Electronically signed: 09/24/2016 2:17 PM | + + + + + + + | Performing | Address | City/State/Zipcode | Phone Number | | Organization | | | | + + + + + | [facility] | [address] | [place] | [phone] | | [facility] | | [address] | | | - IMAGING | | | | + + + + + documented in this encounter Visit Diagnoses + + | Diagnosis | + + | Lumbar radiculopathy Thoracic or lumbosacral neuritis or radiculitis, unspecified | + + | Low back pain potentially associated with spinal stenosis | + + documented in this encounter"
--- OUTSIDE RECORDS SUMMARY | ~2019-10-23 | XMS | Encounter Summary ---
Demographics + + + | Address | [address] | | | [place] [address] | + + + | Home Phone [...] + + | Author | [facility] | | | and Rainerana | + + + | Organization | [facility] | | | and [...] [place], [place] | | | | | [address] | | + + + + + | Jelena Hill | ECON | [place] | | | | | [address] | | + + + + + Care Team Providers + +------+ + | Care Independent Living Instructor Name | Role | Phone | + +------+ + | Ivy Sun | PCP | | + +------+ + Encounter Details +--------+ + + + + | Date | Type | Department | Care Team | Description | +--------+ + + + + | 05/13/ | Orders Only | [facility] | Ivy Sun | Need for shingles | | 2012 | | [facility]IC[facility] | L, DIRECTOR TELEVISION [address] | vaccine (Primary Dx) | | | | [address] | [address] [place] | | | | | [place] | [address] | | | | | [address] | | | | | | [phone] | | | +--------+ + + + [...] + + documented as of this encounter Progress Notes Ivy Sun ARNP - 05/13/2013 2:20 PM PDTNeeds shingles vaccine order sent to rhianna garcia. Done docume nted in this encounter Plan of Treatment +--------+---------+ + + + | Date | Type | Specialty | Care Team | Description | +--------+---------+ + + + | 11/23/ | Office | Family Medicine | Ivy Sun | | | 2019 | Visit | | [address] | | | | | | [place] | | | | | | [address] | | | | | | | | +--------+---------+ + + + documented as of this encounter Visit Diagnoses + + | Diagnosis | + + | Need for shingles vaccine - Primary Need for prophylactic vaccination and inoculation | | against varicella | + + documented in this encounter"
--- OUTSIDE RECORDS SUMMARY | ~2019-10-23 | XMS | Encounter Summary ---
Demographics + + + | Address | [address] | | | [place] [address] | + + + | Home Phone | | + + + | Preferred Language | Unknown | + + + | Marital Status | Single | + + + | Holiness Affiliation | 1077 | + + + | Race | Unknown | + + + | Ethnic Group | Unknown | + + + Author + + + | Author | [facility] | | | and Rainerana | + + + | Organization | [facility] | | | and [...] [place], [place] | | | | | [address] | | + + + + + | Jelena Hill | ECON | [place] | | | | | [address] | | + + + + + Care Team Providers + +------+ + | Care Road Maker Name | Role | Phone | + +------+ + | Ivy Sun | PCP | | + +------+ + Encounter Details +--------+ + + + + | Date | Type | Department | Care Team | Description | +--------+ + + + + | 06/16/ | Hospital | [facility] | Ivy Sun | | | 2011 | Encounter | MED CTR XRAY [address] | L, SYSTEMS INTEGRATION ADVISOR [address] | | | | | [place] | [address] [place], [place] | | | | | [place] [address] | [address] | | | | | [phone] | | | +--------+ + + + [...] +---------+ + + | alendronate | Take 70 mg by mouth | | 0 | 08/21/20 | | | (FOSAMAX) 70 mg | Once a week. | | | 11 | 2 | | tablet | | | | | | + + + +---------+ + + | ergocalciferol | 1 by mouth daily for | | 0 | 08/28/20 | | | (ERGOCALCIFEROL) | 7 days, then 1 by | | | 11 | 2 | | [address] UNITS capsule | mouth once weekly | | | | | | | for 12 weeks | | | | | + + + +---------+ + + | lisinopril | Take 10 mg by mouth | | 0 | 06/05/20 | | | (PRINIVIL, ZESTRIL) | Daily. | | | 10 | 2 | | 10 mg tablet | | | | | [...] + + | zolpidem (AMBIEN) | Take half tablet by | | 0 | 03/03/20 | | | 10 mg tablet | mouth at bedtime as | | | 12 | 2 | | | needed | | | | | + + + +---------+ + + documented as of this encounter Plan of Treatment +--------+---------+ + + + | Date | Type | Specialty | Care Team | Description | +--------+---------+ + + + | 11/23/ | Office | Family Medicine | Ivy Sun | | | 2020 | Visit | | Rishabh, JUSTYN [address] | | | | | | [place] | | | | | | [phone] | | | | | | | | +--------+---------+ + + + documented as of this encounter Procedures + +--------+ + + + | Procedure Name | Priori | Date/Time | Associated Diagnosis | Comments | | | ty | | | | + +--------+ + + + | ECHO COMPLETE | | 06/16/2012 | | Results for this | | | | 12:30 PM | | procedure are in the | | | | PDT | | results section. | + +--------+ + + + documented in this encounter Results ECHO Complete (06/16/2012 12:30 PM PDT) + + | Specimen | + + | | + + + + + | Narrative | Performed At | + + + | [facility] Diagnostic Imaging Department | OS[place]IS MENDEZ | | [address] [facility] | [facility] | | E C H O C A R D | DIAG IMG | | I O G R A P H Y R E P O R T HEIGHT: 5'7" | | | WEIGHT: 260# CERTIFIED DRIVER EXAMINER: JW REFERRING DR: RAVI | | | READING DR: CUCA DIAGNOSIS: HTN, FATIGUE, ABN EKG | | | | | | M E A S U R E M E N T S | | | Aortic Root: 35 mm LV Diameter-diastole: | | | 35 mm Aortic Cusp Sep: 20 mm LV | | | Diameter--systole: 22 mm LA: 33 mm | | | Fractional Shortenin % IVS--diastole: | | | 15 mm PFV Aortic Valve: IVS--systole: | | | 21 mm MPG Mitral Valve: mmHg | | | LVPW--diastole: 14 mm PFV TR Jet: | | | 1.36 m/s LVPW--systole: 16 mm RA/RV PPG: | | | 7.4 mmHg | | | | | | ECHOCARDIOGRAPHY, 06/16/2012 INDICATION FOR THE PROCEDURE: | | | An abnormal EKG. TECHNICAL DATA: The quality of the study is | | | adequate. This is a 2-D echo / M- mode / Doppler / color-Doppler | | | study. FINDINGS: Left atrial size normal. Left ventricular | | | size normal with mild concentric left ventricular hypertrophy. | | | LVEF is 65%. Aortic root is mildly dilated measured 3.5 cm in | | | diameter. There is a grade 1 left ventricular diastolic function. | | | Right atrial size is normal. Right ventricular size is normal | | | with normal wall thickness and normal right ventricular systolic | | | function. Pericardium is normal. Pulmonary artery is normal. | | | Aortic valve is trileaflet and opens normally. There is mild | | | aortic valve regurgitation. Mitral valve is normal. Pulmonic | | | valve is normal. Tricuspid valve is normal. There is a mild | | | tricuspid valve regurgitation. IVC is normal. IMPRESSION: 1. | | | NORMAL LEFT VENTRICULAR SIZE WITH MILD CONCENTRIC LEFT VENTRICULAR | | | HYPERTROPHY. LEFT VENTRICULAR SYSTOLIC FUNCTION IS PRESERVED. | | | LVEF IS 65%. 2. GRADE 1 LEFT VENTRICULAR DIASTOLIC | | | FUNCTION. 3. MILD AORTIC ROOT DILATATION MEASURED 3.5 CM IN | | | DIAMETER. 4. MILD AORTIC VALVE REGURGITATION. 5. MILD | | | TRICUSPID VALVE REGURGITATION. Dictated Date/Time: 06/16/2012 | | | 16:18 Transcribed Date/Time: 06/16/2012 18:28 Travel Accommodation Inspector: | | | <Electronically Signed by Brianna Curiel MD [facility]> | | | 06/17/12 0846 | | + + + + + | Procedure Note | + + | Yohannes, Rad Conversion - 12/04/2013 5:53 PM [facility] | | Diagnostic Imaging Department | | [address] | | | | | | | | E C H O C A R D I O G R A P H Y R E P O R T | | | | | | HEIGHT: 5'7" WEIGHT: 260# CERTIFIED DRIVER EXAMINER: FLO | | REFERRING DR: RAVI JEAN-BAPTISTE DR: CUCA | | | | DIAGNOSIS: HTN, FATIGUE, ABN EKG | | | | | | M E A S U R E M E N T S | | | | Aortic Root: 35 mm LV Diameter-diastole: 35 mm | | Aortic Cusp Sep: 20 mm LV Diameter--systole: 22 mm | | LA: 33 mm Fractional Shortenin % | | IVS--diastole: 15 mm PFV Aortic Valve: | | IVS--systole: 21 mm MPG Mitral Valve: mmHg | | LVPW--diastole: 14 mm PFV TR Jet: 1.36 m/s | | LVPW--systole: 16 mm RA/RV PP.4 mmHg | | | | | | | | ECHOCARDIOGRAPHY, 06/16/2012 | | | | INDICATION FOR THE PROCEDURE: An abnormal EKG. | | | | TECHNICAL DATA: The quality of the study is adequate. This is a 2-D echo / M- | | mode / Doppler / color-Doppler study. | | | | FINDINGS: Left atrial size normal. Left ventricular size normal with mild | | concentric left ventricular hypertrophy. LVEF is 65%. Aortic root is mildly | | dilated measured 3.5 cm in diameter. There is a grade 1 left ventricular | | diastolic function. | | | | Right atrial size is normal. Right ventricular size is normal with normal wall | | thickness and normal right ventricular systolic function. Pericardium is | | normal. Pulmonary artery is normal. Aortic valve is trileaflet and opens | | normally. There is mild aortic valve regurgitation. Mitral valve is normal. | | Pulmonic valve is normal. Tricuspid valve is normal. There is a mild | | tricuspid valve regurgitation. IVC is normal. | | | | IMPRESSION: | | 1. NORMAL LEFT VENTRICULAR SIZE WITH MILD CONCENTRIC LEFT VENTRICULAR | | HYPERTROPHY. LEFT VENTRICULAR SYSTOLIC FUNCTION IS PRESERVED. LVEF IS 65%. | | | | 2. GRADE 1 LEFT VENTRICULAR DIASTOLIC FUNCTION. | | | | 3. MILD AORTIC ROOT DILATATION MEASURED 3.5 CM IN DIAMETER. | | | | 4. MILD AORTIC VALVE REGURGITATION. | | | | 5. MILD TRICUSPID VALVE REGURGITATION. | | | | Dictated Date/Time: 06/16/2012 16:18 | | Transcribed Date/Time: 06/16/2012 18:28 | | Travel Accommodation Inspector: | | <Electronically Signed by Brianna Curiel MD [facility]> 06/17/12 0846 | + + + +---------+ + + | Performing | Address | City/State/Zipcode | Phone Number | | Organization | | | | + +---------+ + + | [place] | | | | | [place] | | | | + +---------+ + + documented in this encounter Visit Diagnoses Not on filedocumented in this encounter
--- OUTSIDE RECORDS SUMMARY | ~2019-10-23 | XMS | Encounter Summary ---
Demographics + + + | Address | [address] | | | [place] [address] | + + + | Home Phone | | + + + | Preferred Language | Unknown | + + + | Marital Status | Single | + + + | Zoroastrian Affiliation | 1077 | + + + | Race | Unknown | + + + | Ethnic Group | Unknown | + + + Author + + + | Author | [facility] | | | and Rainerana | + + + | Organization | [facility] | | | and [...] [place], [place] | | | | | [address] | | + + + + + | Jelena Hill | ECON | [place], [place] | | | | | [address] | | + + + + + Care Team Providers + +------+ + | Care Rack Production Worker Name | Role | Phone | + +------+ + | Ivy Sun | PCP | | + +------+ + Reason for Visit + + + | Reason | Comments | + + + | Dizziness | | + + + | Nausea | | + + + Encounter Details +--------+---------+ + + + | Date | Type | Department | Care Team | Description | +--------+---------+ + + + | 01/09/ | Office | [facility] | Walter Benítez I, | Tachycardia (Primary | | 2017 | Visit | [facility] | REMBERTO [address] | Dx); Benign | | | | [address] | [place], [place] | paroxysmal | | | | [place] | [address] | positional vertigo, | | | | [address] | | unspecified | | | | [phone] | | laterality | +--------+---------+ + + + Social History [...] + + + | Blood Pressure | - | - | | + + + + + | Pulse | 132 | 01/09/2017 3:56 PM | | | | | PDT | | + + + + + | Temperature | 36.6 C (97.8 F) | 01/09/2017 3:56 PM | | | | | PDT | | + + + + + | Respiratory Rate | 26 | 01/09/2017 3:56 PM | | | | | PDT | | + + + + + | Oxygen Saturation | 93% | 01/09/2017 3:56 PM | | | | | PDT | | + + + + + | Inhaled Oxygen | - | - | | | Concentration | | | | + + + + + | Weight | 131.1 kg (289 lb) | 01/09/2017 3:56 PM | | | | | PDT | | + + + + + | Height | - | - | | + + + + + | Body Mass Index | 45.26 | 01/03/2017 10:35 AM | | | | | PST | | + + + + + documented in this encounter Patient Instructions Patient Instructions Benítez, Walter I, PA-C - 01/09/2017 4:56 PM PDTFormatting of this no te might be different from the original. Benign Paroxysmal Positional Vertigo Benign paroxysmal positional vertigo (BPPV) is a problem with the inner ear. The inner ear contains the vestibular system. This system is what helps you keep your balance. BPPV causes a feeling of spinning. It is a common problem of the vestibular system. Understanding the vestibular system The vestibular system of the ear is made up of very tiny parts. They include the utricle, s accule, and semicircular canals. The utricle is a tiny organ that contains calcium crystals. In some people, the crystals can move into the semicircular canals. When this happens, the system no longer works as it should. This causes BPPV. Benign means it is not life-threateni ng. Paroxysmal means it happens suddenly. Positional means that it happens when you move you r head. Vertigo is a feeling of spinning. What causes BPPV? Causes include injury to your head or neck. Other problems with the vestibular system may c ause BPPV. In many people, the cause of BPPV is not known. Symptoms of BPPV You many have repeated feelings of spinning (vertigo). The vertigo usually lasts less than 1 minute. Some movements, suchas rolling over in bed, can bring on vertigo. Diagnosing BPPV Your primary health care provider may diagnose and treat your BPPV. Or you may see an ear, nose, and throat doctor (advertising analyst). In some cases, you may see a nervous system doct or (neurologist). The health care provider will ask about your symptoms and your medical history. He or she w ill examine you. You may have hearing and balance tests. As part of the exam, your health ca re provider may have you move your head and body in certain ways. If you have BPPV, the move ments can bring on vertigo. Your provider will also look for abnormal movements of your eyes . You may have other tests to check your vestibular or nervous systems. Treatment for BPPV Your health care provider may try to move the calcium crystals. This is done by having you move your head and neck in certain ways. This treatment is safe and often works well. You ma y also be told to do these movements at home. You may still have vertigo for a few weeks. Yo ur health care provider will recheck your symptoms, usually in about a month. Special physic al therapy may also be part of treatment. In rare cases surgery may be needed for BPPV delmi t does not go away. When to call the health care provider Call your health care provider right away if you have any of these: Symptoms that do not go away with treatment Symptoms that get worse New symptoms Date Last Reviewed: 01/13/201519993499-8175 [email or web address] [address] [place] [address], [place] [address]. All [facility] reserved. This information is not intended as a substitute for professional medical care. Always follow your healthcare professional's instructions. documented in this encounter Progress Notes Walter Benítez PA-C - 01/09/2017 3:55 PM PDT History: Lucie Miller is a 66 y.o. female Chief Complaint: Dizziness and Nausea HPI Dizziness and nausea x 4 days. Unable to obtain Patient's blood pressure at today's visit d ue to inaudible heart rate on a stethoscope. Pt claims she 4 days dizziness episodes started, claims episodes are short lived lasting fr om a few seconds to 2-3 minutes. Dizziness usually occurs when tuning head or changing body position, Feels nauseated when dizzy. Denies having this problem before She has a heart rate of 132 bpm on presentation, she claims she always has a heart rate over 100. Has been evalu ated by Dr Wolf Denies recent head or prior head injuries, chest pain, shortness of breath , leg edema, palpitations, weakness. She is under significant stress with ongoing divorce si tuation. She is on multiple medications, She denies Alcohol, tobacco, drugs Patient Active Problem List Diagnosis Osteopenia HYPERLIPIDEMIA ANXIETY OBESITY VITAMIN D DEFICIENCY COLONIC POLYPS, ADENOMATOUS, HX OF IMPAIRED FASTING GLUCOSE HYPERTENSION Obstructive sleep apnea Restless legs syndrome Routine general medical examination at a health care facility Prediabetes H/O diagnostic tests Aortic root enlargement Postmenopausal vaginal bleeding History of compression fracture of spine OAB (overactive bladder) Outpatient Prescriptions Prior to Visit Medication Sig Dispense Refill aspirin (ASPIRIN ADULT LOW STRENGTH) 81 MG EC tablet Take 81 mg by mouth Daily. Calcium Carb-Cholecalciferol (CALCIUM 1000 + D) 1000-800 MG-UNIT TABS Take 1 tablet by mouth Daily. FreeStyle Lancets MISC Test blood sugar twice daily. 790.29 100 each 5 gabapentin (NEURONTIN) 600 MG tablet Take 1 tablet by mouth nightly. 90 tablet 3 glucose blood test strips (FREESTYLE LITE) strip Test blood sugar twice daily. 790.2 9 100 each 5 lisinopril (PRINIVIL, ZESTRIL) 5 mg tablet Take 1 tablet by mouth Daily. 90 tablet 1 metFORMIN (GLUCOPHAGE) 500 mg tablet TAKE ONE TABLET BY MOUTH DAILY WITH BREAKFAST 90 t ablet 1 methocarbamol (ROBAXIN) 500 mg tablet Take 1 tablet by mouth 4 times daily. 120 tablet 1 nortriptyline (PAMELOR) 10 MG capsule TAKE THREE CAPSULES BY MOUTH NIGHTLY 270 capsule 1 oxybutynin (DITROPAN XL) 5 mg 24 hr tablet Take 1 tablet by mouth Daily. 90 tablet 1 PARoxetine (PAXIL) 40 MG tablet TAKE ONE TABLET BY MOUTH DAILY 90 tablet 1 rOPINIRole (REQUIP) 2 MG tablet TAKE ONE TABLET BY MOUTH NIGHTLY 90 tablet 1 simvastatin (ZOCOR) 10 mg tablet TAKE ONE TABLET BY MOUTH ONCE NIGHTLY 90 tablet 2 UNCODED MEDICATION Diagnosis: Obstructive Sleep Apnea ICD-9: 327.23 Length of Need: 99 Months 1 Device 0 UNCODED MEDICATION Wear at all times while sleeping. 1 Device 0 No facility-administered medications prior to visit. Review of Systems Constitutional: Negative. Negative for fever, chills, activity change, appetite change, fa tigue and unexpected weight change. HENT: Negative. Negative for congestion. Eyes: Negative. Respiratory: Negative. Negative for choking, chest tightness, shortness of breath and stri sunshine. Cardiovascular: Negative. Negative for chest pain, palpitations and leg swelling. Positive for elevated heart rate Gastrointestinal: Positive for nausea. Neurological: Positive for dizziness and light-headedness. Results for orders placed or performed during the hospital encounter of 11/26/16 Renal Function Panel Result Value Ref Range NA 139 136-149 mmol/L K 3.8 3.5-5.1 mmol/L CL 105 98-109 mmol/L CO2 25 24-31 mmol/L ANION GAP 9 3-16 mmol/L GLUCOSE 116 (H) 70-109 mg/dL BUN 17 7-18 mg/dL Creatinine, Serum/Plasma 0.82 0.60-1.30 mg/dL eGFR if not >60 >=60 mL/min/1.73m2 CALCIUM 9.2 8.3-10.5 mg/dL ALBUMIN 3.6 3.2-5.0 g/dL PHOSPHORUS 3.3 2.5-4.6 mg/dL BUN/CREA 20.7 Health Maintenance Topics with due status: Overdue Topic Date Due Hepatitis C Screening 1950 Physical Examination: BP | Pulse 132 | Temp(Src) 36.6 C (97.8 F) (Temporal) | Resp 26 | Wt 131.09 kg (289 lb ) | SpO2 93% Ortho Exam Physical Exam Constitutional: She appears well-developed and well-nourished. She is cooperative. Non-tox ic appearance. She does not have a sickly appearance. No distress. HENT: Head: Normocephalic. Right Ear: Hearing, tympanic membrane, external ear and ear canal normal. Left Ear: Hearing, tympanic membrane, external ear and ear canal normal. Uses hearing aid Neck: Neck supple. No JVD present. Carotid bruit is not present. Cardiovascular: Regular rhythm, S1 normal, S2 normal and normal heart sounds. Tachycardia present. No murmur heard. Pulmonary/Chest: Breath sounds normal. She has no decreased breath sounds. She has no wheez es. She has no rhonchi. She has no rales. Neurological: She is alert. B/P 120/97 Assessment/Plan: 1. Tachycardia - ECG 12 lead EKG was abnormal but appear stable and similar to prior ECGs heart rate came down to 109 2. Benign paroxysmal positional vertigo, unspecified laterality - meclizine (ANTIVERT) 25 mg tablet; Take 1 tablet by mouth 3 times daily as needed. Dispe nse: 60 tablet; Refill: 0 Advised medication may not be very effective due to the short lived episodes. Condition usually resolves after a few weeks, however if no improvement a referral to ENT w ill be done Follow up in 10 days documented in thi s encounter Plan of Treatment +--------+---------+ + + + | Date | Type | Specialty | Care Team | Description | +--------+---------+ + + + | 11/23/ | Office | Family Medicine | Ivy Sun | | | 2020 | Visit | | JUSTYN [address] | | | | | | [place] | | | | | | [address] | | | | | | | | +--------+---------+ + + + + +------+--------+ + + | Name | Type | Priori | Associated Diagnoses | Order Schedule | | | | ty | | | + +------+--------+ + + | ECG 12 lead | ECG | Routin | Tachycardia | Ordered: 01/09/2017 | | | | e | | | + +------+--------+ + + documented as of this encounter Procedures + +--------+ + + + | Procedure Name | Priori | Date/Time | Associated Diagnosis | Comments | | | ty | | | | + +--------+ + + + | ECG 12 LEAD | Routin | 01/09/2017 | Tachycardia | Results for this | | | e | 4:50 PM | | procedure are in the | | | | PDT | | results section. | + +--------+ + + + documented in this encounter Results ECG 12 lead (01/09/2017 4:50 PM PDT) + + + + + + | Component | Value | Ref Range | Performed | Pathologist | | | | | At | Signature | + + + + + + | VENTRICULAR | 109 | BPM | [facility] | | | RATE EKG | | | | | + + + + + + | ATRIAL RATE | 109 | BPM | [facility] | | + + + + + + | P-R | 144 | ms | [facility] | | | INTERVAL | | | | | + + + + + + | QRS | 130 | ms | [facility] | | | DURATION | | | | | + + + + + + | Q-T | 376 | ms | [facility] | | | INTERVAL | | | | | + + + + + + | Q-T | 506 | ms | [facility] | | | INTERVAL | | | | | | (CORRECTED) | | | | | + + + + + + | P WAVE AXIS | 62 | degrees | [facility] | | + + + + + + | QRS AXIS | 10 | degrees | [facility] | | + + + + + + | T AXIS | 27 | degrees | [facility] | | + + + + + + | INTERPRETAT | Sinus tachycardiaRight | | [facility] | | | ION TEXT | bundle branch | | | | | | blockAbnormal ECGNo | | | | | | previous ECGs | | | | | | availableConfirmed by | | | | | | MONAE OLSEN MD | | | | | | ([id number]) on 01/15/2017 | | | | | | 6:10:13 AM | | | | + + + + + + + + | Specimen | + + | | + + + + + | Narrative | Performed At | + + + | | | + + + + +---------+ + + | Performing | Address | City/State/Zipcode | Phone Number | | Organization | | | | + +---------+ + + | [facility] | | | | + +---------+ + + documented in this encounter Visit Diagnoses + + | Diagnosis | + + | Tachycardia - Primary Tachycardia, unspecified | + + | Benign paroxysmal positional vertigo, unspecified laterality | + + documented in this encounter"
--- OUTSIDE RECORDS SUMMARY | ~2019-10-23 | XMS | Encounter Summary ---
Demographics + + + | Address | [address] | | | [place] [address] | + + + | Home Phone | | + + + | Preferred Language | Unknown | + + + | Marital Status | Single | + + + | Faith Affiliation | 1077 | + + + | Race | Unknown | + + + | Ethnic Group | Unknown | + + + Author + + + | Author | [facility] | | | and Rainerana | + + + | Organization | [facility] | | | and Rainerana [...] [place], [place] | | | | | [address] | | + + + + + | Jelena Hill | ECON | [place] | | | | | [address] | | + + + + + Care Team Providers + +------+ + | Care Restaurant Mgr Name | Role | Phone | + [...] | Specialty | Sleep | Diagnoses | Dino, | [facility] | | | Services | Medicine | Obstructive | Ivy Keating, | [facility] | | | Required | | sleep apnea | RESIDENT CARE DIRECTOR [address] | | | | [address] | [address] | | | | | | [place], | [place], | | | | | | [place] [address] | [place] [address] | | | | | | Phone: | Phone: | | | | | | [phone] | [phone] | | | | | | Fax: | Fax: | | | | | | [phone] | [phone] | +--------+ + + + + + Encounter Details +--------+---------+ + + + | Date | Type | Department | Care Team | Description | +--------+---------+ + + + | 08/19/ | Office | [facility] | Reymundo Guillory | NO SHOW (Primary Dx) | | 2017 | Visit | SLEEP DISORDER [address] | MD Ivy [address] | | | | | [address] [place] | [address] [place] | | | | | [place] [address] | [place] [address] | | | | | [phone] | [phone] | | | | | | | [...] documented as of this encounter Progress Notes Reymundo Guillory Jr., MD - 08/19/2017 10:00 AM PDTThis patient was a no-show for today's sc heduled 1 hour sleep medicine consultation. documented in this encounter Plan of Treatment +--------+---------+ + + + | Date | Type | Specialty | Care Team | Description | +--------+---------+ + + + | 11/23/ | Office | Family Medicine | Ivy Sun | | | 2019 | Visit | | [address] | | | | | | [place] | | | | | | [address] | | | | | | | | +--------+---------+ + + + documented as of this encounter Visit Diagnoses + + | Diagnosis | + + | No Show - Primary Code used for vists where the patient is not seen | + + documented in this encounter"
--- OUTSIDE RECORDS SUMMARY | ~2019-10-23 | XMS | Encounter Summary ---
Demographics + + + | Address | [address] | | | [place] [address] | + + + | Home Phone [...] + | Author | [facility] | | | and Rainerana | + + + | Organization | [facility] | | | and Rainerana [...] [place], [place] | | | | | [address] | | + + + + + | Jelena Hill | ECON | [place] | | | | | [address] | | + + + + + Care Team Providers + +------+ + | Care Marketing Mgr Name | Role | Phone | [...] Description | +--------+--------+ + + + | 10/07/ | Refill | [facility] | Ivy Sun | Medication Refill | | 2017 | | [facility]ICINE [place] | Rishabh, JUSTYN [address] | | | | | [address] | [address] [place] | | | | | [place] | [address] | | | | | [address] | | | | | | [phone] | | | +--------+--------+ + + + [...] [place] | | | | | | [address] | | | | | | | | +--------+---------+ + + + documented as of this encounter Visit Diagnoses Not on filedocumented in this encounter"
--- OUTSIDE RECORDS SUMMARY | ~2019-10-23 | XMS | Encounter Summary ---
Demographics + + + | Address | [address] | | | [place] [address] | + + + | Home Phone | | + + + | Preferred Language | Unknown | + + + | Marital Status | Single | + + + | Baptism Affiliation | 1077 | + + + | Race | Unknown | + + + | Ethnic Group | Unknown | + + + Author + + + | Author | [facility] | | | and Rainerana | + + + | Organization | [facility] | | | and [...] [place], [place] | | | | | [address] | | + + + + + | Jelena Hill | ECON | [place] | | | | | [address] | | + + + + + Care Team Providers + +------+ + | Care Mysql Dba Name | Role | Phone | + [...] Description | +--------+--------+ + + + | 01/28/ | Refill | [facility] | Monika Guerrero, | Medication Refill | | 2019 | | [facility]IC[facility] [place] | [place]TER [address] | | | | | [address] | [place] | | | | | [place] | [address] | | | | | [address] | | | | | | [phone] | | | +--------+--------+ + + + [...] [place] | | | | | | [address] | | | | | | | | +--------+---------+ + + + documented as of this encounter Visit Diagnoses Not on filedocumented in this encounter"
--- OUTSIDE RECORDS SUMMARY | ~2019-10-23 | XMS | Encounter Summary ---
Demographics + + + | Address | [address] | | | [place] [address] | + + + | Home Phone | | + + + | Preferred Language | Unknown | + + + | Marital Status | Single | + + + | Scientology Affiliation | 1077 | + + + | Race | Unknown | + + + | Ethnic Group | Unknown | + + + Author + + + | Author | [facility] | | | and Rainerana | + + + | Organization | [facility] | | | and Rainerana [...] [place], [place] | | | | | [address] | | + + + + + | Jelena Hill | ECON | [place] | | | | | [address] | | + + + + + Care Team Providers + +------+ + | Care Tune Up Mechanic Name | Role | Phone | + +------+ + | Ivy Sun | PCP | | + +------+ + Reason for Visit + + + | Reason | Comments | + + + | Foot Pain | right fifth metatarsal FX established pt new problem | + + + Evaluate & Treat (Urgent) +--------+ + + [...] | | Required | | 5th | [address] | [address] | | | | | metatarsal, | [address] | [address] | | | | | right, | [place], | [facility], | | | | | closed, | [place] [address] | [place] | | | | | initial | Phone: | [phone] | | | | | encounter | [phone] | Phone: | | | | | | Fax: | [phone] | | | | | | [phone] | Fax: | | | | | | | [phone] | +--------+ + + + + + Encounter Details +--------+---------+ + + + | Date | Type | Department | Care Team | Description | +--------+---------+ + + + | 07/16/ | Office | [facility] | Ivy Sun | Metatarsal fracture, | | 2013 | Visit | ORTHOPEDIC SURGERY | L, [address] | right, closed, | | | | [address] [facility] | [address] [place] | initial encounter | | | | [place] | [address] | (Primary Dx) | | | | [address] | | | | | | [phone] | Reynaldo Astorga E, | | | | | | [address] [facility] | | | | | | [place] | | | | | | [address] [...] + + | Temperature | 36.8 C (98.3 F) | 07/16/2014 9:43 AM | | | | | PDT [...] + + + + | Weight | 120.2 kg (265 lb) | 07/16/2014 9:43 AM | | | | | PDT | | + + + + + | Height | 170.2 cm (5' 7") | 07/16/2014 9:43 AM | | | | | PDT | | + + + + + | Body Mass Index | 41.5 | 07/16/2014 9:43 AM | | | | | PDT | | + + + + + documented in this encounter Progress Notes Reynaldo Astorga MD - 07/16/2014 1:18 PM PDTFormatting of this note might be different fro m the original. History of present illness: Lucie is a 64 y.o. female who presents with a chief complaint o f right foot pain. She took a fall and hurt her right foot when she tripped over a box. She had xrays that elin wed a fracture and she was put in a postop shoe and presents for evaluation and treatment. S he has a history of chronic right foot problems. She had several surgeries in the and is left with deformity. 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 She fatigues after walking for awhile and at times trips. Past Medical History Diagnosis Date Encounter for hearing conservation and treatment Disorder of bone and cartilage, unspecified Sprain of ankle, unspecified site Routine gynecological examination Obesity, unspecified Bronchitis, not specified as acute or chronic Insomnia, unspecified Anxiety state, unspecified Other and unspecified hyperlipidemia Abnormal glandular Papanicolaou smear of cervix Essential hypertension, benign Other seborrheic keratosis Depressed Rotator cuff (capsule) sprain Osteoporosis Restless leg syndrome Menopausal and perimenopausal disorder 2003 Eczema Hearing loss Sleep apnea Smoker Seborrheic dermatitis 10/14/2013 Rosacea 10/14/2013 H/O diagnostic tests 12/14/2013 Echo 06/16/12, LVEF 65%. Holter Monitor 06/16/12. Nuclear Stress Test 06/25/12, LVEF 80%. Aortic root enlargement (HCC) 01/13/2014 Echo 12/18/13, LVEF 69%. Prediabetes 12/09/2013 Cataract -2013 bilateral Past Surgical History Procedure Date Back surgery 1991 laminal discectomy Gastroplasty 1985 Bunionectomy 1986 Toe surgery Endometrial biopsy 2002 Knee arthroscopy 2006 Left Total knee arthroplasty 07/15/13 left total knee replacement Dilation and curettage of uterus 06/03/2014 HYSTEROSCOPY FRACTIONAL D&C; Laterality: N/A; Surgeon: Eleazar Mustafa, DO; Loca tion: [facility] No Known Allergies Current Outpatient Prescriptions on File Prior to Visit Medication Sig Dispense Refill alendronate (FOSAMAX) 70 mg tablet Take 1 tablet by mouth Once a week. 12 tablet 3 aspirin (ASPIRIN ADULT LOW STRENGTH) 81 MG EC tablet Take 81 mg by mouth Daily. FreeStyle Lancets MISC Test blood sugar twice daily. 790.29 100 each 5 glucose blood test strips (FREESTYLE LITE) strip Test blood sugar twice daily. 790.2 9 100 each 5 HYDROcodone-acetaminophen (NORCO) 5-325 mg per tablet Take 1 tablet by mouth every 6 ho urs as needed for Pain. 30 tablet 0 lisinopril (PRINIVIL, ZESTRIL) 10 mg tablet Take 1 tablet by mouth every morning. 90 t ablet 1 metFORMIN (GLUCOPHAGE) 500 mg tablet Take 1 tablet by mouth daily (with breakfast). 90 tablet 1 metroNIDAOLE (METROCREAM) 0.75 % cream Apply topically 2 times daily. 60 g 5 nortriptyline (PAMELOR) 10 MG capsule Take 3 capsules by mouth nightly. 90 capsule 5 paroxetine (PAXIL) 40 MG tablet Take 1 tablet by mouth Daily. 90 tablet 1 rOPINIRole (REQUIP) 2 MG tablet Take 0.5 tablets by mouth nightly. 90 tablet 3 simvastatin (ZOCOR) 10 mg tablet Take 1 tablet by mouth nightly. 90 tablet 1 triamcinolone (KENALOG) 0.025% cream Apply thin film to affected area(s) two daily as n eeded 80 g 1 UNCODED MEDICATION Diagnosis: Obstructive Sleep Apnea ICD-9: 327.23 Length of Need: 99 Months 1 Device 0 UNCODED MEDICATION Wear at all times while sleeping. 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 Social History Main Topics Smoking status: Former Smoker -- 0.5 packs/day for 15 years Types: Cigarettes Smokeless tobacco: Never Used Comment: at last visit since starting Chantix 08/25/12 Alcohol Use: No Drug Use: No Sexually Active: Yes -- Male partner(s) Other Topics Concern Not on file Social History Narrative Exercise:Caffeine:Living situation: Review of Systems Constitutional: Denies fever or chills, night sweats Eyes: Denies change in visual acuity HENT: Denies nasal congestion or sore throat Respiratory: Denies cough or shortness of breath , no asthma or wheezing, no hemoptysis Cardiovascular: Denies chest pain, palpitations, or orthopnea GI: Denies abdominal pain, nausea, vomiting, bloody stools or diarrhea : Denies dysuria , infections, kidney stones Musculoskeletal: Denies back pain or joint pain except for that mentioned above in HPI. Integument: Denies rash or skin lesions Neurologic: Denies headache, focal weakness or sensory changes, no strokes, TIA's, no seiz ure history Endocrine: Positive glucose intolerance Lymphatic: Denies swollen glands Psychiatric: Positive anxiety Filed Vitals: 07/16/14 0943 Temp: 36.8 C (98.3 F) PainSc: 4 PainLoc: Foot Estimated Body mass index is 41.50 kg/(m^2) as calculated from the following: Height as of this encounter: 5' 7"(1.702 m). Weight as of this encounter: 265 lb(120.203 kg). On physical exam her right foot has bruising over the lateral dorsum She is tender over the base of the 5th metatarsal She has multiple lesser toe severe deformities s/p previous hammertoe surgeries She has a large plantar callus under the 2nd metatarsal head She has another callus lateral to her fifth metatarsal head and another callus dorsomedial to the first metatarsal head She has a dorsal scar over the entire first ray Additional curvilinear scar lateral midfoot Intact pedal pulses Ankle with good plantar flexion - dorsiflexion 10 degrees Hindfoot has about 20 degree arc of motion xrays reviewed by me and compared to mini eva images taken today She has a new fracture at the base of the 5th metatarsal - minimally displaced She has evidence of previous surgery at the first tarsometatarsal joint and subsequent scre w removal It looks like there are changes all across the Lisfranc joint complex all across the midfoo t Not a solid arthrodesis but it looks like there has been an attempt Her lesser toes are deformed with surgical resection of the PIP joints with subsequent migr ation Her first ray is shortened by her previous surgery and the 2nd metatarsal is much longer Impression - right foot acute 5th metatarsal base fracture Chronic right foot deformities with IPK under 2nd metatarsal head This is aggravated by a long 2nd metatarsal and her foot drop We discussed strategies for coping with her foot deformities and what would be required t o change them With regard to the new fracture it should heal uneventfully over time and the postop shoe i s appropriate until the discomfort subsides. Will return as needed documented in this e ncounter Plan of Treatment +--------+---------+ + + + | Date | Type | Specialty | Care Team | Description | +--------+---------+ + + + | 11/23/ | Office | Family Medicine | Ivy Sun | | | 2019 | Visit | | Rishabh, JUSTYN [address] | | | | | | [place] | | | | | | [id number] | | | | | | | | +--------+---------+ + + + + + +--------+ + + | Name | Type | Priori | Associated Diagnoses | Order Schedule | | | | ty | | | + + +--------+ + + | * [facility] | Outpatient | Routin | Fracture of 5th | Ordered: 07/12/2014 | | Orthopedic Surgery - | Referral | e | metatarsal, right, | | | AMB Referral | | | closed, initial | | | | | | encounter | | + + +--------+ + + documented as of this encounter Visit Diagnoses + + | Diagnosis | + + | Metatarsal fracture, right, closed, initial encounter - Primary | + + documented in this encounter
--- OUTSIDE RECORDS SUMMARY | ~2019-10-23 | XMS | Encounter Summary ---
Demographics + + + | Address | [address] | | | [place] [address] | + + + | Home Phone | | + + + | Preferred Language | Unknown | + + + | Marital Status | Single | + + + | Baptism Affiliation | 1077 | + + + | Race | Unknown | + + + | Ethnic Group | Unknown | + + + Author + + + | Author | [facility] | | | and Rainerana | + + + | Organization | [facility] | | | and [...] [place], [place] | | | | | [address] | | + + + + + | Jelena [place] | ECON | [place] | | | | | [address] | | + + + + + Care Team Providers + +------+ + | Care Nutrition Intern Name | Role | Phone | + +------+ + | Ivy Sun | PCP | | + +------+ + Encounter Details +--------+ + + + + | Date | Type | Department | Care Team | Description | +--------+ + + + + | 08/06/ | Abstract | [facility] | Ivy Sun | | | 2011 | | Group - [place] | Rishabh, JUSTYN [address] | | | | | [address] [place] | | | | | [place] | [address] | | | | | [facility] [place] | | | | | | [address] | | | | | | [phone] | | | +--------+ + + + [...]
--- OUTSIDE RECORDS SUMMARY | ~2019-10-23 | XMS | Encounter Summary ---
Demographics + + + | Address | [address] | | | [place] [address] | + + + | Home Phone | | + + + | Preferred Language | Unknown | + + + | Marital Status | Single | + + + | Confucianist Affiliation | 1077 | + + + | Race | Unknown | + + + | Ethnic Group | Unknown | + + + Author + + + | Author | [facility] | | | and Rianerana | + + + | Organization | [facility] | | | and Rainerana [...] [place], [place] | | | | | [address] | | + + + + + | Jelena Hill | ECON | [place] | | | | | [address] | | + + + + + Care Team Providers + +------+ + | Care Senior Benefits Specialist Name | Role | Phone | [...] + | 09/04/ | Telephone | [facility] | Ivy Sun | Lab Order | | 2018 | | [facility] | JUSTYN [place] [address] | | | | | [address] | [place] | | | | | [place] | [address] | | | | | [address] | | | | | | [phone] | | | +--------+ + + + [...] [place] | | | | | | [address] | | | | | | | [...] | | | | | mg/dL | [facility] | | | | | | MEDICAL | | | | | | PARK | | | | | | LABORATORY | | + + + + + + | eGFR if not | >60Comment: GLOMERULAR | >=60 | [facility] | | | | FILTRATION | mL/min/1.73m2 | [facility] | | | IVORIAN | RATE,ESTIMATED | | MEDICAL | | | | mL/min/1.58e7Fwfm than | | PARK | | | [...] + + + | [facility] | [address] | [place] | [phone] | | [facility] | | [address] | | | [facility] | | [...] - 1.030 | [facility] | | | [place] | | | [facility] | | [...] [address] | [place] | [phone] | | [facility] | | [address] | | | - LABORATORY | | | | + + + + + documented in this encounter Visit Diagnoses + + | Diagnosis | + + | Mixed hyperlipidemia - Primary | + + | Impaired fasting glucose | + + | Essential hypertension Unspecified essential hypertension | + + documented in this encounter"
--- OUTSIDE RECORDS SUMMARY | ~2019-10-23 | XMS | Encounter Summary ---
Demographics + + + | Address | [address] | | | [place] [address] | + + + | Home Phone | | + + + | Preferred Language | Unknown | + + + | Marital Status | Single | + + + | Samaritan Affiliation | 1077 | + + + | Race | Unknown | + + + | Ethnic Group | Unknown | + + + Author + + + | Author | [facility] | | | and Rainerana | + + + | Organization | [facility] | | | and [...] [place], [place] | | | | | [address] | | + + + + + | Jelena Hill | ECON | [place] | | | | | [address] | | + + + + + Care Team Providers + +------+ + | Care Assembler For Puller Over Hand Name | Role | Phone | + +------+ + | Ivy Sun | PCP | | + +------+ + Reason for Visit + + + | Reason | Comments | + + + | Hypertension | 3 month follow up | + + + | Pre-Diabetes | 3 month follow up | + + + Encounter Details +--------+---------+ + + + | Date | Type | Department | Care Team | Description | +--------+---------+ + + + | 02/09/ | Office | [facility] | Ivy Sun | Essential | | 2014 | Visit | [facility] | L, JUSTYN [address] | hypertension | | | | [address] | [place]VE [place], [place] | (Primary Dx); | | | | [place], [place] | [address] | Prediabetes; | | | | [address] | | Hyperlipidemia; | | | | [phone] | | Anxious depression; | | | | | | Vitamin D | | | | | | deficiency; | | | | | | Postmenopausal | | | | | | vaginal bleeding | +--------+---------+ + + + Social History [...] + + + | Blood Pressure | 122/70 | 02/09/2015 10:49 AM | | | | | PDT | | + + + + + | Pulse | 117 | 02/09/2015 10:49 AM | | | | | PDT | | + + + + + | Temperature | 36.7 C (98.1 F) | 02/09/2015 10:49 AM | | | | | PDT | | + + + + + | Respiratory Rate | 20 | 02/09/2015 10:49 AM | | | | | PDT | | + + + + + | Oxygen Saturation | 98% | 02/09/2015 10:49 AM | | | | | PDT | | + + + + + | Inhaled Oxygen | - | - | | | Concentration | | | | + + + + + | Weight | 127.5 kg (281 lb) | 02/09/2015 10:49 AM | | | | | PDT | | + + + + + | Height | 170.2 cm (5' 7") | 02/09/2015 10:49 AM | | | | | PDT | | + + + + + | Body Mass Index | 44.01 | 02/09/2015 10:49 AM | | | | | PDT | | + + + + + documented in this encounter Progress Notes Ivy Sun ARNP - 02/09/2015 10:58 AM PDTFormatting of this note might be differen t from the original. Subjective: Lucie Miller is a 64 y.o. female patient of Ivy Sun. Chief Complaint: Hypertension; and Pre-Diabetes Here for 3 month follow-up of hypertension and diabetes HPI Hypertension: Control and Compliance Low Sodium Diet: yes Medication compliance: good Home Blood Pressures: Today b/p is controlled. Home readings 120's/70's. Has tolerated decrease in b/p medications made 3 months ago. BP: 122/70 mmHg Pt denies: No headache, visual symptoms, neurologic problems, syncope No chest pain, palpitations, peripheral edema No side effects from any antihypertensive medications Prediabetes: Not due for A1C. Trying to watch carb intake. Desires to lose weight as has gained 11 pound s since quitting smoking. Not exercising currently. Tolerating metformin well without side-effects. Anxious depression: well controlled on paxil. Sleep is good. No side effects. Denies anxiet y or depression symptom flares. Due for a recheck of her cholesterol and CMP HYPERLIPIDEMIA: Diet: Low fat, low carb dietary compliance: Denies side effects of medications No evidence of medication toxicity Denies Myalgias, abdominal pain, jaundice, constipation. Lab Results Component Value Date HBA1C 5.5 11/10/2014 HBA1C 6.2* 10/14/2013 HBA1C 6.2* 10/14/2013 PUY4TCD 6.0 07/06/2014 VQP2DGK 5.8 04/06/2014 LDL 83 05/12/2013 MALBCRE 31.3 04/06/2014 MALB 9.3 04/06/2014 Was recenlty seen by cardiology and visit details reviewed. Quit smoking 11 weeks ago. Quit on her own. Has gained 11 pounds since quitting smoking. PREVENTIVE CARE/PRIOR VISITS 1. Any recommendations from Health Maintenance: No There are no preventive care reminders to display for this patient. 2. Any immunizations necessary: No Immunization History Administered Date(s) Administered INFLUENZA, QUADRIVALENT PRESERVATIVE FREE (PED/ADOL/ADULT) 11/10/2014 INFLUENZA, TRIVALENT PRESERVATIVE FREE (PED/ADOL/ADULT) 08/25/2012, 10/14/2013 PNEUMOCOCCAL POLYSACCHARIDE 23-VALENT (PPSV23) 08/25/2012 TDAP, (ADOL/ADULT) 01/15/2007 3. Has patient been involved in medical events/hospitalizations since their last visit: No No Known Allergies Medications: She has a current medication list which includes the following prescription(s): alendronate , aspirin adult low strength, calcium carb-cholecalciferol, cholecalciferol, freestyle elenita ts, glucose blood vi test strips, lisinopril, medroxyprogesterone acetate, metformin, nortri ptyline, paroxetine, ropinirole, simvastatin, triamcinolone, UNCODED MEDICATION, and UNCODED MEDICATION. Past Medical History She has a past [...] situation: with significant other Review of Systems see HPI Objective: Filed Vitals: 02/09/15 1049 BP: 122/70 Pulse: 117 Temp: 36.7 C (98.1 F) TempSrc: Temporal Resp: 20 Height: 1.702 m (5' 7") Weight: 127.461 kg (281 lb) SpO2: 98% Physical Exam Constitutional: She [...] n o wheezes. She has no rales. Abdominal: Lymphadenopathy: She has no cervical adenopathy. Neurological: She is alert and oriented to person, place, and time. Skin: Skin is warm and dry. She is not diaphoretic. Psychiatric: She has a normal mood and affect. Her behavior is normal. Judgment and thought content normal. Her mood appears not anxious. Her speech is not rapid and/or pressured. Cog nition and memory are normal. She does not exhibit a depressed mood. She expresses no suicid al ideation. Nursing note and vitals reviewed. Results for orders placed in visit on 11/19/14 EXTERNAL LAB: CREATININE Result Value Range Creatinine, External 0.87 EXTERNAL LAB: EGFR Result Value Range eGFR, External 66 eGFR, , External EXTERNAL LAB: SODIUM Result Value Range Sodium, External 137 EXTERNAL LAB: POTASSIUM Result Value Range Potassium, External 4.0 EXTERNAL LAB: CHLORIDE Result Value Range Chloride, External 101 EXTERNAL LAB: CARBON DIOXIDE Result Value Range Carbon Dioxide, External 25 EXTERNAL LAB: CALCIUM Result Value Range Calcium, External 9.5 EXTERNAL LAB: ALBUMIN Result Value Range Albumin, External 3.9 EXTERNAL LAB: GLUCOSE Result Value Range Glucose, External 90 Assessment and Plans: 1. Essential hypertension -. Blood pressure stable and goals discussed -. Continue current medications - Advised low salt diet - Advised regular cardiovascular exercise -. Labs ordered and will notify of results - Follow up as needed if blood pressures are above goal - Comprehensive Metabolic Panel; Future - Lipid Panel; Future - Hemoglobin A1C; Future - Urinalysis with Microscopic if Indicated; Future - lisinopril (PRINIVIL, ZESTRIL) 10 mg tablet; Take 1 tablet by mouth every morning. Dispe nse: 90 tablet; Refill: 1 2. Prediabetes Encouraged exercise to reduce insulin resistance and help with weight loss. Encouraged her to count her carbs and try to not exceed 60 gm per meal, 15 gm per snack. Always included a protein with meals and snacks. - Comprehensive Metabolic Panel; Future - Lipid Panel; Future - Hemoglobin A1C; Future - Urinalysis with Microscopic if Indicated; Future - metFORMIN (GLUCOPHAGE) 500 mg tablet; Take 1 tablet by mouth daily (with breakfast). Dis pense: 90 tablet; Refill: 1 3. Hyperlipidemia -. Take meds as directed -. Discussed regular cardiovascular exercise and maintaining healthy wt. -. Avoid high fat/cholesterol diet -. Lipid panel and LFT f/u labs ordered - Comprehensive Metabolic Panel; Future - Lipid Panel; Future - Hemoglobin A1C; Future - Urinalysis with Microscopic if Indicated; Future 4. Anxious depression Controlled. Refilled paxil for 6 months. Follow-up for worsening mood. - paroxetine (PAXIL) 40 MG tablet; TAKE 1 TABLET BY MOUTH DAILY Dispense: 90 tablet; Refil l: 1foll Follow-up 6 month recheck above issues. Sooner prn. Care instructions and warning signs were discussed. Medications per orders. Side effects discussed. Labs and investigations per orders. This note is dictated using [employer] voice recognition software. This note was dictated but not proofread. It may contain some grammatical errors. documented in th is encounter Plan of [...] | | + +------+--------+ + + | Comprehensive | Lab | Routin | Essential | 1 Occurrences | | Metabolic Panel | | e | hypertension | starting 02/09/2015 | | | | | Prediabetes | until 02/09/2016 | | | | | Hyperlipidemia | | + +------+--------+ + + | Hemoglobin A1C | Lab | Routin | Essential | 1 Occurrences | | | | e | hypertension | starting 02/09/2015 | | | | | Prediabetes | until 02/09/2016 | | | | | Hyperlipidemia | | + +------+--------+ + + | Urinalysis with | Lab | Routin | Essential | 1 Occurrences | | Microscopic if | | e | hypertension | starting 02/09/2015 | | Indicated | | | Prediabetes | until 02/09/2016 | | | | | Hyperlipidemia | | + +------+--------+ + + documented as of this encounter Visit Diagnoses + + | Diagnosis | + + | Essential hypertension - Primary Unspecified essential hypertension | + + | Prediabetes Other abnormal glucose | + + | Hyperlipidemia Other and unspecified hyperlipidemia | + + | Anxious depression | + + | Vitamin D deficiency Unspecified vitamin D deficiency | + + | Postmenopausal vaginal bleeding Postmenopausal bleeding | + + documented in this encounter
--- OUTSIDE RECORDS SUMMARY | ~2019-10-23 | XMS | Encounter Summary ---
Demographics + + + | Address | [address] | | | [place] [address] | + + + | Home Phone [...] + + + | Author | [facility] | | | and Rainerana | + + + | Organization | [facility] | | | and Rainerana | + + + | Address | Unknown | + + + | Phone | Unavailable | + + + Support + + + + + | Name | Relationship | Address | Phone | + + + + + | Aleks Noguera | BRYANT | [address] | | | | | [place], [place] | | | | | [address] | | + + + + + | Jelena Hill | ECON | [place] | | | | | [address] | | + + + + + Care Team Providers + +------+ + | Care Graduate Engineer Name | Role | Phone | [...] Description | +--------+--------+ + + + | 10/03/ | Refill | [facility] | Ivy Sun | Medication Refill | | 2014 | | [facility] [place] | Rishabh, JUSTYN [address] | | | | | [address] | [place], [place] | | | | | [place], [place] | [address] | | | | | [address] | | | | | | [phone] | | | +--------+--------+ + + + [...] [place] | | | | | | [id number] | | | | | | | | +--------+---------+ + + + documented as of this encounter Visit Diagnoses Not on filedocumented in this encounter"
--- OUTSIDE RECORDS SUMMARY | ~2019-10-23 | XMS | Encounter Summary ---
Demographics + + + | Address | [address] | | | [place] [address] | + + + | Home Phone | | + + + | Preferred Language | Unknown | + + + | Marital Status | Single | + + + | Rastafarian Affiliation | [phone] | + + + | Race | Unknown | + + + | Ethnic Group | Unknown | + + + Author + + + | Author | [facility] | | | and Rainerana | + + + | Organization | [facility] | | | and [...] [place], [place] | | | | | [address] | | + + + + + | Jelena Hill | ECON | [place] | | | | | [address] | | + + + + + Care Team Providers + +------+ + | Care Catering Assistant Name | Role | Phone | + +------+ + | Ivy Sun | PCP | | + +------+ + Reason for Visit + + + | Reason | Comments | + + + | Medicare Wellness | | + + + Encounter Details +--------+---------+ + + + | Date | Type | Department | Care Team | Description | +--------+---------+ + + + | 10/01/ | Office | [facility] | Ivy Sun | Medicare annual | | 2018 | Visit | [facility] [place] | JUSTYN Keating [address] | wellness visit, | | | | [address] | [place] | subsequent (Primary | | | | [place] | [address] | Dx); Screening | | | | [address] | | mammogram, encounter | | | | [phone] | | for; Need for | | | | | | influenza | | | | | | vaccination; Need | | | | | | for pneumococcal | | | | | | vaccination; Routine | | | | | | history and | | | | | | physical examination | | | | | | of adult | +--------+---------+ + + + Social History [...] + + + | Blood Pressure | 110/84 | 10/01/2018 10:31 AM | | | | | PST | | + + + + + | Pulse | 122 | 10/01/2018 10:31 AM | | | | | PST | | + + + + + | Temperature | 36.4 C (97.6 F) | 10/01/2018 10:31 AM | | | | | PST | | + + + + + | Respiratory Rate | - | - | | + + + + + | Oxygen Saturation | 95% | 10/01/2018 10:31 AM | | | | | PST | | + + + + + | Inhaled Oxygen | - | - | | | Concentration | | | | + + + + + | Weight | 132 kg (291 lb 0.1 | 10/01/2018 10:31 AM | | | | oz) | PST | | + + + + + | Height | - | - | | + + + + + | Body Mass Index | 45.58 | 05/06/2018 10:13 AM | | | | | PDT | | + + + + + documented in this encounter Patient Instructions Patient Instructions Ivy Sun ARNP - 10/01/2018 10:57 AM PSTFormatting of this n ote might be different from the original. Your Personalized Preventive Plan Name: Lucie Miller Thank you for taking time to come in and have your Annual Wellness Visit it is importan t that we have the opportunity to spend additional time with you once a year to discuss not only your preventative care needs, but to review how your care is being managed overall. We hope that you found today s visit meaningful. Based on today s data 10/01/18 HERE IS YOUR CURRENT HEALTH MAINTENANCE RECORD AND SCHEDULE Health Maintenance Topic Date Due Vaccine: Zoster (2 of 3) 07/08/2013 BREAST CANCER SCREENING (MAMM Q2 YEARS 50-74) 04/10/2018 Vaccine: Influenza (1) 06/28/2018 Vaccine: Pneumococcal 65+ Low/Medium Risk (2 of 2 - PPSV23) 07/30/2018 Adult Annual Wellness Visit 08/29/2018 Colorectal Cancer Screening (Colonoscopy) 05/22/2021 Vaccine: Dtap/Tdap/Td (3 - Td) 07/24/2026 Hepatitis C Screening Completed HERE IS YOUR CURRENT IMMUNIZATION RECORD Immunization History Administered Date(s) Administered INFLUENZA PF 18 Y OR >,TRIVALENT RECOMBINANT 08/25/2012, 10/14/2013 INFLUENZA PF 4Y OR >,QUAD DERIVED FROM TISS-CULT 07/30/2017 INFLUENZA PF QUAD(PED/ADOL/ADULT),PSKT or VIAL 11/10/2014, 08/17/2015, 07/24/2016 PNEUMOCOCCAL CONJUGATE 13-VALENT (PCV13) 07/30/2017 PNEUMOCOCCAL POLYSACCHARIDE 23-VALENT (PPSV23) 08/25/2012 TDAP, (ADOL/ADULT) 01/15/2007, 07/24/2016 ZOSTER, 1 DOSE (ADULT) 05/13/2013 HERE IS YOUR CURRENT MEDICATION LIST Current Outpatient Prescriptions Medication Sig Dispense Refill aspirin (ASPIRIN ADULT LOW STRENGTH) 81 MG EC tablet Take 81 mg by mouth Daily. Blood Glucose Calibration (OT ULTRA/FASTTK CNTRL SOLN) SOLN Use to calibrate glucometer 1 each 0 Blood Glucose Monitoring Suppl (ONE TOUCH ULTRA SYSTEM KIT) w/Device KIT Use to check b lood sugars 3 times weekly. 1 each 0 Cholecalciferol (VITAMIN D3) 16744 units TABS Take 1 tablet by mouth Once a week. ferrous sulfate 325 mg tablet Take 1 tablet by mouth 2 times daily. 60 tablet 2 gabapentin (NEURONTIN) 600 MG tablet Take 1 tablet by mouth nightly. 90 tablet 0 glucose blood test strips (ONE TOUCH ULTRA TEST) strip Test fasting 3 times weekly, and check 30 min pre and 2 hours post main meal 100 each 4 lisinopril (PRINIVIL, ZESTRIL) 5 mg tablet Take 1 tablet by mouth Daily. 90 tablet 0 metFORMIN (GLUCOPHAGE) 500 mg tablet TAKE ONE TABLET BY MOUTH DAILY WITH BREAKFAST 90 t ablet 0 nortriptyline (PAMELOR) 10 MG capsule TAKE THREE CAPSULES BY MOUTH NIGHTLY 270 capsule 0 ONE TOUCH ULTRASOFT LANCETS MISC Use to check blood sugars 3 times a week 100 each 1 oxybutynin (DITROPAN-XL) 10 MG 24 hr tablet Take 1 tablet by mouth Daily. 90 tablet 0 PARoxetine (PAXIL) 40 MG tablet TAKE ONE TABLET BY MOUTH DAILY 90 tablet 0 rOPINIRole (REQUIP) 2 MG tablet TAKE ONE TABLET BY MOUTH NIGHTLY 90 tablet 0 simvastatin (ZOCOR) 10 mg tablet TAKE ONE TABLET BY MOUTH ONCE NIGHTLY 90 tablet 0 tiZANidine (ZANAFLEX) 2 MG tablet Take 2 mg every 6-8 hours as needed for muscle spasm. May increase dose by 2-4 mg/dose every 1-4 days. 60 tablet 0 UNABLE TO FIND Med Name: Resmed AirSense 10 autoset CPAP: 13-20cm while sleeping. UNCODED MEDICATION Diagnosis: Obstructive Sleep Apnea ICD-9: 327.23 Length of Need: 99 Months 1 Device 0 UNCODED MEDICATION Wear at all times while sleeping. 1 Device 0 No current facility-administered medications for this visit. THE FOLLOWING RECOMMENDATIONS WERE MADE TODAY Orders Placed This Encounter Procedures ANGELINA Tomosynthesis Screening Bilateral Pneumococcal polysaccharide vaccine 23-valent greater than or equal to 2yo subcutaneous /IM [[id number]] Influenza *PF 65 yr or >, Trivalent High-Dose documented in this encounter Progress Notes Ivy Sun, REPRODUCTIVE ENDOCRINOLOGIST - 10/01/2018 10:15 AM PSTFormatting of this note might be differen t from the original. Medicare Annual Wellness Visit Lucie Miller is a 68 y.o. female who presents for a Medicare Wellness visit today: HPI Here for her medicare wellness HEALTH RISK ASSESSMENT: The patient or their surrogate filled out the HRA and the responses were incorporated into the notes below. GENERAL HEALTH 1. How would you describe your general health? : Fair 2. How would you rate your health compared to others your age?: Same HEARING AND VISION 1. Do you feel that a hearing or vision difficulty limits or hampers your personal life?: ( !) Yes 2. Do you wear hearing aids?: Yes 3. Do you wear glasses?: Yes FUNCTIONAL AND ACTIVITIES OF DAILY LIVING 1. Do you need help with dressing, eating, bathing or going to the bathroom?: No 2. Do you need help with preparing meals, transportation, shopping, managing your finances, or taking your medicine?: No 3. Do you drive?: Yes 4. Have you ever been told that you should stop driving?: No HOME SAFETY SCREENING: Does your home have throw rugs, poor lighting, or a slippery bathtub or shower?: No Fall Risk Screening (CDC STEADI) 1. Have you fallen in the past year?: (!) Yes 1a. How many times?: 2 1b. Were you injured?: (!) Yes 2. Do you feel unsteady when standing or walking?: No 3. Do you worry about falling?: (!) Yes STEADI Fall risk questionnaire score: 3 DIET AND EXERCISE HISTORY 1. How is your appetite ? : Good 2. Do you eat fewer than two times a day? : No 3. Do you eat at least 2 serving of fruits and vegetables per day?: (!) No 4. How many times per week do you exercise? : (!) 0-1 INCONTINENCE SCREENING Do you have trouble holding your bowels or bladder?: (!) Yes ADVANCED CARE PLANNING 1. Do you have an Advanced Directive?: No 2. Have you completed a POLST form?: yes DETECTION OF COGNITIVE IMPAIRMENT (MINI-COG): Performed in clinic Repeat three objects. Score one point for each correctly repeated item (e.g., banana, sunri se, chair): 3 PHQ-2 DEPRESSION SCREENING: Over the last 2 weeks, have you been bothered by any of the fol lowing? Little interest/pleasure in doing things? : Not at all Feeling down, depressed/hopeless?: Not at all PHQ2 Total Score: 0 PHQ2 Screening: Negative Patient Active Problem List Diagnosis Osteopenia HYPERLIPIDEMIA ANXIETY OBESITY VITAMIN D DEFICIENCY COLONIC POLYPS, ADENOMATOUS, HX OF IMPAIRED FASTING GLUCOSE HYPERTENSION Obstructive sleep apnea Restless legs syndrome Routine general medical examination at a health care facility Prediabetes H/O diagnostic tests Aortic root enlargement Postmenopausal vaginal bleeding History of compression fracture of spine OAB (overactive bladder) Osteoporosis KAMERON (obstructive sleep apnea) Past Medical History: Past Medical History: Diagnosis Date Abnormal glandular Papanicolaou smear of cervix Anxiety state, unspecified Aortic root enlargement (HCC) 01/13/2014 Echo 12/18/13, LVEF 69%. Bronchitis, not specified as acute or chronic Cataract bilateral Depressed Disorder of bone and cartilage, unspecified Eczema Encounter for hearing conservation and treatment Essential hypertension, benign H/O diagnostic tests 12/14/2013 Echo 06/16/12, LVEF 65%. Holter Monitor 06/16/12. Nuclear Stress Test 06/25/12, LVEF 80%. Hearing loss History of compression fracture of spine 08/17/2015 Insomnia, unspecified Menopausal and perimenopausal disorder 2004 OAB (overactive bladder) 11/28/2016 Obesity, unspecified KAMERON (obstructive sleep apnea) Osteoporosis Other and unspecified hyperlipidemia Other seborrheic keratosis Prediabetes 12/09/2013 Restless leg syndrome Rosacea 10/14/2013 Rotator cuff (capsule) sprain Routine gynecological examination Seborrheic dermatitis 10/14/2013 Smoker Sprain of ankle, unspecified site Past Family History: Family History Problem Relation Age of Onset Alzheimer's disease Mother Heart disease Maternal Grandfather Stroke Maternal Grandfather Heart attack Father Heart surgery Father bypass Stroke Father Stroke Paternal Grandfather Heart disease Paternal Grandmother Obesity Maternal Grandmother Other (see comment) Maternal Grandmother Pancreatitis Thyroid disease Sister Lung cancer Paternal Uncle Heart disease Paternal Uncle No Known Problems Paternal Aunt No Known Problems Paternal Aunt Diabetes Maternal Uncle Diabetes Maternal Aunt Social History: Patient Status: Single [1]. Patient lives with their family Currently working? Retired Substance Use: Lucie's Tobacco Use: History Smoking Status Former Smoker Packs/day: 0.50 Years: 15.00 Types: Cigarettes Start date: 11/19/1999 Quit date: 11/19/2014 Smokeless Tobacco Never Used . Michelle alcohol use: History Alcohol Use 0.0 oz/week Comment: rarely . The Past Medical, Surgical, and Family History has been reviewed and updated at this visit. yes Today's Visit: Current Medications Current Outpatient Prescriptions Medication Sig Dispense Refill aspirin (ASPIRIN ADULT LOW STRENGTH) 81 MG EC tablet Take 81 mg by mouth Daily. Blood Glucose Calibration (OT ULTRA/FASTTK CNTRL SOLN) SOLN Use to calibrate glucometer 1 each 0 Blood Glucose Monitoring Suppl (ONE TOUCH ULTRA SYSTEM KIT) w/Device KIT Use to check b lood sugars 3 times weekly. 1 each 0 Cholecalciferol (VITAMIN D3) 76718 units TABS Take 1 tablet by mouth Once a week. ferrous sulfate 325 mg tablet Take 1 tablet by mouth 2 times daily. 60 tablet 2 gabapentin (NEURONTIN) 600 MG tablet Take 1 tablet by mouth nightly. 90 tablet 0 glucose blood test strips (ONE TOUCH ULTRA TEST) strip Test fasting 3 times weekly, and check 30 min pre and 2 hours post main meal 100 each 4 lisinopril (PRINIVIL, ZESTRIL) 5 mg tablet Take 1 tablet by mouth Daily. 90 tablet 0 metFORMIN (GLUCOPHAGE) 500 mg tablet TAKE ONE TABLET BY MOUTH DAILY WITH BREAKFAST 90 t ablet 0 nortriptyline (PAMELOR) 10 MG capsule TAKE THREE CAPSULES BY MOUTH NIGHTLY 270 capsule 0 ONE TOUCH ULTRASOFT LANCETS MISC Use to check blood sugars 3 times a week 100 each 1 oxybutynin (DITROPAN-XL) 10 MG 24 hr tablet Take 1 tablet by mouth Daily. 90 tablet 0 PARoxetine (PAXIL) 40 MG tablet TAKE ONE TABLET BY MOUTH DAILY 90 tablet 0 rOPINIRole (REQUIP) 2 MG tablet TAKE ONE TABLET BY MOUTH NIGHTLY 90 tablet 0 simvastatin (ZOCOR) 10 mg tablet TAKE ONE TABLET BY MOUTH ONCE NIGHTLY 90 tablet 0 tiZANidine (ZANAFLEX) 2 MG tablet Take 2 mg every 6-8 hours as needed for muscle spasm. May increase dose by 2-4 mg/dose every 1-4 days. 60 tablet 0 UNABLE TO FIND Med Name: Resmed AirSense 10 autoset CPAP: 13-20cm while sleeping. UNCODED MEDICATION Diagnosis: Obstructive Sleep Apnea ICD-9: 327.23 Length of Need: 99 Months 1 Device 0 UNCODED MEDICATION Wear at all times while sleeping. 1 Device 0 No current facility-administered medications for this visit. Allergies No Known Allergies Current list of Providers and DME Suppliers Patient Care Team: JUSTYN Butt as PCP - General Current Medicare Suppliers: [facility] - [place], [place] - [address] [place] [address] [place] [address] -[id number] - [place], [place] - [address] [place] [address] Immunizations Immunization History Administered Date(s) Administered INFLUENZA 65 Y OR >, TRIVALENT HIGH-DOSE 10/01/2018 INFLUENZA PF 18 Y OR >,TRIVALENT RECOMBINANT 08/25/2012, 10/14/2013 INFLUENZA PF 4Y OR >,QUAD DERIVED FROM TISS-CULT 07/30/2017 INFLUENZA PF QUAD(PED/ADOL/ADULT),PSKT or VIAL 11/10/2014, 08/17/2015, 07/24/2016 PNEUMOCOCCAL CONJUGATE 13-VALENT (PCV13) 07/30/2017 PNEUMOCOCCAL POLYSACCHARIDE 23-VALENT (PPSV23) 08/25/2012, 10/01/2018 TDAP, (ADOL/ADULT) 01/15/2007, 07/24/2016 ZOSTER, 1 DOSE (ADULT) 05/13/2013 Preventative Care and Screening (Attestation) The following health maintenance items are reviewed in [facility] and correct as of today: Health Maintenance Topic Date Due Vaccine: Zoster (2 of 3) 07/08/2013 BREAST CANCER SCREENING (MAMM Q2 YEARS 50-74) 04/10/2018 Adult Annual Wellness Visit 10/01/2019 Colorectal Cancer Screening (Colonoscopy) 05/22/2021 Vaccine: Dtap/Tdap/Td (3 - Td) 07/24/2026 Hepatitis C Screening Completed Vaccine: Influenza Completed Vaccine: Pneumococcal 65+ Low/Medium Risk Completed REVIEW OF SYSTEMS: Review of Systems Constitutional: Negative for fatigue. Respiratory: Negative for chest tightness and shortness of breath. Cardiovascular: Negative for chest pain, palpitations and leg swelling. Gastrointestinal: Negative for abdominal pain, constipation and diarrhea. Genitourinary: Positive for frequency and urgency. Negative for dysuria and vaginal dischar ge. PHYSICAL EXAM: Vitals: BP 110/84 | Pulse 122 | Temp 36.4 C (97.6 F) (Temporal) | Wt 132 kg (291 lb 0.1 oz) | SpO2 95% | ? No | BMI 45.58 kg/m BMI: Estimated body mass index is 45.58 kg/m as calculated from the following: Height as of 05/06/18: 1.702 m (5' 7"). Weight as of this encounter: 132 kg (291 lb 0.1 oz). Vision Screening and Audiometry Results: No exam data present Physical Exam Constitutional: She is oriented to person, place, and time. She appears well-developed. No distress. Morbidly obese HENT: Head: Normocephalic and atraumatic. Right Ear: External ear normal. Nose: Nose normal. Mouth/Throat: Oropharynx is clear and moist. No oropharyngeal exudate. Eyes: Pupils are equal, round, and reactive to light. Conjunctivae and EOM are normal. Righ t eye exhibits no discharge. Left eye exhibits no discharge. No scleral icterus. Neck: Normal range of motion. Neck supple. No JVD present. No tracheal deviation present. N o thyromegaly present. Cardiovascular: Normal rate, regular rhythm and intact distal pulses. Exam reveals no gall op and no friction rub. No murmur heard. Pulmonary/Chest: Breath sounds normal. No respiratory distress. She has no wheezes. She has no rales. She exhibits no deformity. Right breast exhibits no inverted nipple, no mass, no nipple discharge, no skin change and no tenderness. Left breast exhibits no inverted nipple, no mass, no nipple discharge, no skin change and no tenderness. Breasts are symmetrical. Exam was chaperoned by team care staff Abdominal: Soft. Bowel sounds are normal. She exhibits no distension and no mass. There is no tenderness. There is no rebound and no guarding. Exam somewhat limited due to body habitus Musculoskeletal: Normal range of motion. She exhibits no edema or tenderness. Lymphadenopathy: She has no cervical adenopathy. She has no axillary adenopathy. Neurological: She is alert and oriented to person, place, and time. She has normal reflexes . No cranial nerve deficit. She exhibits normal muscle tone. Coordination normal. Skin: Skin is warm and dry. No rash noted. She is not diaphoretic. No erythema. Psychiatric: She has a normal mood and affect. Her speech is normal and behavior is normal. Judgment and thought content normal. Her mood appears not anxious. Cognition and memory are normal. She does not exhibit a depressed mood. Nursing note and vitals reviewed. ASSESSMENT AND PLANS: CHRONIC CONDITION REVIEW: 1. Medicare annual wellness visit, subsequent 2. Routine history and physical examination of adult Healthy habits discussed , including regular breast exams, proper calcium intake, exercise. Reviewed need for age appropriate screening examinations such as mammography, colonoscopy a nd dexa scan. Ordered if appropriate. Follow-up one year for next exam. Had DEXA scan comple coni in 2017, will call [facility] to get report sent over. She will also schedule follow-up for her chronic health conditions and we will obtain her l abs from [facility] 3. Screening mammogram, encounter for Due for mammography, she did not complete this in 2017. Has one scheduled for next week. - ANGELINA Tomosynthesis Screening Bilateral; Future 4. Need for influenza vaccination Immunization counseling discussed by myself and updated today. Obtained consent and provide d VIS - Influenza *PF 65 yr or >, Trivalent High-Dose 5. Need for pneumococcal vaccination Immunization counseling discussed by myself and updated today. Provided VIS - Pneumococcal polysaccharide vaccine 23-valent greater than or equal to 2yo subcutaneous/I M [[id number]] RECOMMENDATIONS: The following recommendations were made as a result of this visit, and the HRA Is a Care Management Referral indicated for this patient? no Diet: Recommend DASH diet plan Exercise: Advised to engage in some form or exercise within mobility limitations. Immunizations: Zoster (Not covered by Medicare) Screening Labs: had these done at [facility] and they are not available for appt. Screening Exams: Screening mammogram HEALTH RISK APPRAISAL (Attestation) Health Risk Assessment Form was reviewed with the patient and recommendations made to Lucie Miller based on her risk factors. PERSONALIZED PREVENTATIVE PLAN: (Attestation) A Personalized Care Plan for Ms. Miller has been established and reviewed with patient an d made available to the patient. IDori, Principal Network Architect, am acting as a scribe on behalf of, and in the pr esence of Sandra Neff 10/01/18 I, JUSTYN Babcock personally performed the services described in this documentati on, as scribed by Dori Campbell CMA in my presence, and are both accurate and complete. Electronically Signed by: JUSTYN Babcock 10/02/18 8:58 documented in th is encounter Plan of [...] | + +--------+ + + + | IMAGING REPORT - | | 08/12/2017 | | Results for this | | EXTERNAL SCAN | | 12:00 AM | | procedure are in the | | | | PDT | | results section. | + +--------+ + + + documented in this encounter Results IMAGING REPORT - EXTERNAL SCAN (08/12/2017 12:00 AM PDT) + + + | Narrative | Performed At | + + + | Ordered by an | | | unspecified provider. | | + + + documented in this encounter Visit Diagnoses + + | Diagnosis | + + | Medicare annual wellness visit, subsequent - Primary Routine general medical | | examination at a health care facility | + + | Screening mammogram, encounter for | + + | Need for influenza vaccination Need for prophylactic vaccination and inoculation | | against influenza | + + | Need for pneumococcal vaccination Need for prophylactic vaccination against | | streptococcus pneumoniae (pneumococcus) | + + | Routine history and physical examination of adult Routine general medical examination | | at a health care facility | + + documented in this encounter
--- OUTSIDE RECORDS SUMMARY | ~2019-10-23 | XMS | Encounter Summary ---
Demographics + + + | Address | [address] | | | [place] [address] | + + + | Home Phone | | + + + | Preferred Language | Unknown | + + + | Marital Status | Single | + + + | Adventist Affiliation | [id number] | + + + | Race | Unknown | + + + | Ethnic Group | Unknown | + + + Author + + + | Author | [facility] | | | and Rainerana | + + + | Organization | [facility] | | | and Rainerana [...] [place], [place] | | | | | [address] | | + + + + + | [address] | ECON | [place] | | | | | [address] | | + + + + + Care Team Providers + +------+ + | Care Metal Leaf Layer Name | Role | Phone | + +------+ + | Ivy Sun | PCP | | + +------+ + Reason for Visit + + + | Reason | Comments | + + + | Appointment Question | | + + + Encounter Details +--------+ + + + + | Date | Type | Department | Care Team | Description | +--------+ + + + + | 06/30/ | Telephone | [facility] | Ivy Sun | Appointment Question | | 2019 | | [facility] [place] | JUSTYN [address] | | | | | [address] | [place] [place], [place] | | | | | [place], [place] | [address] | | | | | [address] | | | | | | [phone] | | | +--------+ + + + [...]
--- OUTSIDE RECORDS SUMMARY | ~2019-10-23 | XMS | Encounter Summary ---
Demographics + + + | Address | [address] | | | [place] [address] | + + + | Home Phone [...] | [facility] | | | and Rainerana | + + + | Organization | [facility] | | | and Rainerana [...] [place], [place] | | | | | [address] | | + + + + + | Jelena Hill | ECON | [place] | | | | | [address] | | + + + + + Care Team Providers + +------+ + | Care Coke Drawer Name | Role | Phone | + [...] + + | 07/22/ | Office | [facility] | Ivy Sun | Impaired fasting | | 2019 | Visit | [facility] | L, OPERATIONS [facility] | glucose (Primary | | | | [address] | [place] [place], [place] | Dx); Anxiety; Flu | | | | [place] | [address] | vaccine need | | | | [address] | | | | | | [phone] | | | +--------+---------+ + + + [...] encounter Patient Instructions Patient Instructions Sharita Burk, Malter Operator - 07/22/2019 10:45 AM PDTIf blo od [...] has been changed since signin Order Audit [place] Blood Glucose Monitoring Suppl (ONE TOUCH ULTRA SYSTEM KIT) w/Device KIT (Taking) Use to check blood sugars 3 times weekly. Number of times this order has been changed since signin Order [facility] [place] cholecalciferol (CHOLECALCIFEROL) 2000 units TABS (Taking) Take 2,000 Units by mouth Tresa y. ELIQUIS 5 MG tablet (Taking) Take 1 tablet by mouth 2 times daily. Number of times this order has been changed since signin Order Audit [place] ferrous sulfate 325 mg tablet (Taking) TAKE ONE TABLET BY MOUTH TWICE A DAY Number of times this order has been changed since signin Order [facility] [place] gabapentin (NEURONTIN) 600 MG tablet (Taking) TAKE ONE TABLET BY MOUTH NIGHTLY Number of times this order has been changed since signin Order [facility]it [place] glucose blood test strips (ONE TOUCH ULTRA TEST) strip (Taking) Test fasting 3 times w eekly, and check 30 min pre and 2 hours post main meal Number of times this order has been changed since signin Order [facility] [place] nortriptyline (PAMELOR) 10 MG capsule (Taking) TAKE 3 CAPSULES BY MOUTH NIGHTLY Number of times this order has been changed since signin Order [facility] [place] ONE TOUCH ULTRASOFT LANCETS MISC (Taking) Use to check blood sugars 3 times a week Number of times this order has been changed since signin Order [facility] [place] oxybutynin (DITROPAN-XL) 10 MG 24 hr tablet (Taking) Take 1 tablet by mouth Daily. Number of times this order has been changed since signin Order [facility] [place] PARoxetine (PAXIL) 40 MG tablet (Taking) TAKE ONE TABLET BY MOUTH DAILY Number of times this order has been changed since signin Order [facility] [place] rOPINIRole (REQUIP) 2 MG tablet (Taking) TAKE ONE TABLET BY MOUTH NIGHTLY Number of times this order has been changed since signin Order [facility] [place] simvastatin (ZOCOR) 10 mg tablet (Taking) TAKE ONE TABLET BY MOUTH ONCE NIGHTLY Number of times this order has been changed since signin Order [facility] [place] tiZANidine (ZANAFLEX) 2 MG tablet (Taking) TAKE ONE TABLET (2MG) BY MOUTH EVERY 6 TO 8 HO URS NEEDED FOR MUSCLE SPASMS. Number of times this order has been changed since signin Order [facility] [place] UNABLE TO FIND (Taking) Med Name: Resmed AirSense 10 autoset CPAP: 13-20cm while sleeping . UNCODED MEDICATION (Taking) Diagnosis: Obstructive Sleep Apnea ICD-9: 327.23 Length of Need: 99 Months Number of times this order has been changed since signin Order [facility] [place] UNCODED MEDICATION (Taking) Wear at all times while sleeping. Number of times this order has been changed since signin Order [facility] [place] Past Medical History She has a past [...] [place] | | | | | | [phone] | | | | | | | [...]
--- OUTSIDE RECORDS SUMMARY | ~2019-10-23 | XMS | Encounter Summary ---
Demographics + + + | Address | [address] | | | [place] [address] | + + + | Home Phone [...] + + + | Author | [facility] | | | and Rainerana | + + + | Organization | [facility] | | | and Rainerana [...] [place], [place] | | | | | [address] | | + + + + + | Jelena Hill | ECON | [place] | | | | | [address] | | + + + + + Care Team Providers + +------+ + | Care Dining Services Director Name | Role | Phone | + [...] Description | +--------+---------+ + + + | 04/04/ | Office | [facility] | Ivy Sun | Anxious depression | | 2016 | Visit | [facility] [place] | L, JUSTYN [address] | (Primary Dx); Back | | | | [address] | [address] [place] | pain, unspecified | | | | [place] | [address] | back pain | | | | [address] | | laterality, | | | | [phone] | | unspecified | | | | | | chronicity, | | | | | | unspecified | | | | | | location; Vitamin D | | | | | | deficiency; Dysuria | +--------+---------+ + + + Social History [...] + + + | Blood Pressure | 106/82 | 04/04/2016 2:27 PM | | | | | PDT | | + + + + + | Pulse | 119 | 04/04/2016 2:27 PM | | | | | PDT | | + + + + + | Temperature | 36.9 C (98.4 F) | 04/04/2016 2:27 PM | | | | | PDT | | + + + + + | Respiratory Rate | 16 | 04/04/2016 2:27 PM | | | | | PDT | | + + + + + | Oxygen Saturation | 97% | 04/04/2016 2:27 PM | | | | | PDT | | + + + + + | Inhaled Oxygen | - | - | | | Concentration | | | | + + + + + | Weight | 137.5 kg (303 lb 1.6 | 04/04/2016 2:27 PM | | | | oz) | PDT | | + + + + + | Height | 170.2 cm (5' 7") | 04/04/2016 2:27 PM | | | | | PDT | | + + + + + | Body Mass Index | 47.47 | 04/04/2016 2:27 PM | | | | | PDT | | + + + + + documented in this encounter Progress Notes Ivy Sun, JUSTYN - 04/04/2016 2:34 PM PDTFormatting of this note might be differen t from the original. Lucie Carrera is a 65 y.o. female Chief Complaint: Back Pain HPI Patients back pain has been resolved. Her back pain had started from 2 broken ribs and neck pain. Patient has followed up with neurosurgery and they have no concerns. Patient have vitamin D deficiency and is taking Vitamin D-3 1000 units daily. She would lik e a prescription. Results for LUCIE CARRERA ( ) as of 04/04/2016 14:40 Ref. Range 04/06/2014 10:35 Vit D, 25-Hydroxy Unknown 28 Depression/Anxiety: Patient is here for follow-up of Depression and anxiety. Onset: Patient feels that her mood has improved since the pain has resolved. Patient is str essed at home with life, she has gained weight and recently lost an animal. Is fr om her medical terminologist boyfriend but is still living with him. Prior to losing her animal she feel s that her mood was improved. Feels like she has a lot of situational depression. She has the following depression symptoms: anhedonia, depressed mood, difficulty concentrat ing, fatigue, feelings of worthlessness/guilt, hopelessness and insomnia She denies the following symptoms: psychomotor agitation, psychomotor retardation, recurren t thoughts of , suicidal attempt, suicidal thoughts with specific plan and suicidal tho ughts without plan She complains of the following anxiety symptoms: feeling nervous, anxious, worrying too muc h, having trouble relaxing, being restless/hard to sit still and easily annoyed or irritable Symptoms have been are improving Sleep Disturbance: No Are you currently in counseling: no Treatments Tried: Paxil. Have they been effective: Yes PHQ-9 score: 10 Previous : 24 GISELL-7 score: 7 Previous 18 Patient has noticed increased urgency and frequency in urination. Ocassionally she has some dysuria. She did a UA yesterday at [facility]. Symptoms started Saturday. Patient is drinking 32 oz of diet coke a day Vitamin D deficiency: Recent levels have shown controlled. Needs refill of her supplement PREVENTIVE CARE/PRIOR VISITS 1. Any recommendations from Health Maintenance: none Preventative Services TOPIC LAST DONE NEXT DUE Influenza Imm (Yearly) 08/17/2015 05/28/2016 Colon Cancer Screening (Colonoscopy Every 10 Years 50-75) 05/20/2011 05/20/2021 Cervical Cancer Screening (Pap Every 3 Years 21-65 ) 05/05/2013 05/05/2016 2. Any immunizations necessary: none Immunization History Administered Date(s) Administered INFLUENZA, QUADRIVALENT PRESERVATIVE FREE (PED/ADOL/ADULT) 11/10/2014, 08/17/2015 INFLUENZA, TRIVALENT PRESERVATIVE FREE (PED/ADOL/ADULT) 08/25/2012, 10/14/2013 PNEUMOCOCCAL POLYSACCHARIDE 23-VALENT (PPSV23) 08/25/2012 TDAP, (ADOL/ADULT) 01/15/2007 3. Has patient been involved in medical events/hospitalizations since their last visit: no No Known Allergies Medications: Patient Reported Taking Dosage aspirin (ASPIRIN ADULT LOW STRENGTH) 81 MG EC tablet (Taking) Take 81 mg by mouth Daily. Number of times this order has been changed since signin Order Audit [facility] Calcium Carb-Cholecalciferol (CALCIUM 1000 + D) 1000-800 MG-UNIT TABS (Taking) Take 1 tab let by mouth Daily. Number of times this order has been changed since signin Order Audit [facility] cholecalciferol (VITAMIN D-3) 1,000 units capsule (Taking) Take 1,000 Units by mouth Tresa y. Number of times this order has been changed since signin Order Audit [facility] FreeStyle Lancets MISC (Taking) Test blood sugar twice daily. 790.29 Number of times this order has been changed since signin Order Audit [facility] gabapentin (NEURONTIN) 600 MG tablet (Taking) Take 1 tablet by mouth nightly. glucose blood test strips (FREESTYLE LITE) strip (Taking) Test blood sugar twice daily . 790.29 Number of times this order has been changed since signin Order Audit [facility] lisinopril (PRINIVIL, ZESTRIL) 10 mg tablet (Taking) [...] has been changed since signin Order Audit [facility] UNCODED MEDICATION (Taking) Diagnosis: Obstructive Sleep Apnea ICD-9: 327.23 Length of Need: 99 Months Number of times this order has been changed since signin Order Audit [facility] UNCODED MEDICATION (Taking) Wear at all times while sleeping. Number of times this order has been changed since signin Order Audit [facility] Past Medical History She has a past [...] for chest pain, palpitations and leg swelling. Genitourinary: Negative for dysuria, vaginal discharge, difficulty urinating and vaginal pa in. Objective: Filed Vitals: 04/04/16 1427 BP: 106/82 Pulse: 119 Temp: 36.9 C (98.4 F) TempSrc: Temporal Resp: 16 Height: 1.702 m (5' 7") Weight: 137.485 kg (303 lb 1.6 oz) SpO2: 97% Physical Exam Constitutional: She is oriented to person, place, and time. She appears well-developed and well-nourished. No distress. Morbidly obese HENT: Head: Normocephalic and atraumatic. Eyes: Conjunctivae are normal. Right eye exhibits no discharge. Left eye exhibits no discha rge. Neck: Neck supple. No JVD present. Carotid bruit is not present. No pedal edema Cardiovascular: Normal rate, regular rhythm and normal heart sounds. No murmur heard. Pulmonary/Chest: Effort normal and breath sounds normal. No respiratory distress. She has n o wheezes. She has no rales. Abdominal: Soft. Bowel sounds are normal. She exhibits no distension and no mass. There is no tenderness. There is no rebound and no guarding. Lymphadenopathy: She has no cervical adenopathy. Neurological: She is alert and oriented to person, place, and time. Coordination normal. Skin: Skin is warm and dry. She is not diaphoretic. Psychiatric: Her behavior is normal. Judgment normal. Her mood appears anxious. Her speech is not rapid and/or pressured. Thought content is not paranoid. Cognition and memory are nor mal. She does not exhibit a depressed mood. She expresses no suicidal ideation. She expresse s no suicidal plans. PHQ9 Depression scale: Date of Last ScreeningTotal Score 10 (04/04/161399) (Printable questionnaires in [place]) Interpretation of Total Score: 1-4 = Minimal depression, 5-9 = Mild depression, 10-14 = Mod erate depression, 15-19 = Moderately severe depression, 20-27 = Severe depression 1. Little interest or pleasure in doing things?: Several days (04/04/161399) 2. Feeling down, depressed, or hopeless: Several days (04/04/161399) 3. Trouble falling or staying asleep, or sleeping too much?: More than half the days (1399) 4. Feeling tired or having little energy?: More than half the days (04/04/161399) 5. Poor appetite or overeating: Nearly every day (04/04/161399) 6. Feeling bad about yourself - or that you are a failure or have let yourself or your f amily down?: Several days (04/04/161399) 7. Trouble concentrating on things, such as reading the newspaper or watching television : Not at all (04/04/161399) 8. Moving or speaking so slowly that other people could have noticed. Or the opposite - being so fidgety or restless that you have been moving around a lot more than usual?: Not at all (04/04/161399) 9. Thoughts that you would be better off , or of hurting yourself in some way?: Not at all (04/04/161399) 10. If you checked off any problems, how difficult have these problems made it for you to do your work, take care of things at home, or get along with other people?: Somewhat difficu lt (04/04/161399) General Anxiety Disorder (GISELL-7): Total Score 7 (04/04/161399) (From GISELL or Chronic Pain tab; printable questionnaires in [place]ik) Interpretation of Total Score: 8-9 = consistent with Generalized anxiety disorder, >15 = se vida 1. Feeling nervous, anxious, or on edge?: Several days (04/04/161399) 2. Not being able to stop or control worrying: Several Days (04/04/161399) 3. Worrying too much about different things?: Several Days (04/04/161399) 4. Trouble relaxing?: Several Days (04/04/161399) 5. Being so restless that it is hard to sit still?: More than half the days (04/04/161399 ) 6. Becoming easily annoyed or irritable?: Several Days (04/04/161399) 7. Feeling afraid as if something awful might happen?: Not at all (04/04/161399) Nursing note and vitals reviewed. Results for [...] 150 UA RBC, External >50 UA Specific Edna, External 1.029 UA Leukocyte Esterase, External 500 [...] Value Ref Range Hemoglobin A1c, external 5.9 Assessment: 1. Anxious depression 2. Back pain, unspecified back pain laterality, unspecified chronicity, unspecified locatio n 3. Vitamin D deficiency cholecalciferol (VITAMIN D-3) 1,000 units capsule 4. Dysuria Plans: 1. Anxious depression Improving - Anxiety and depression scores reviewed with patient - Take medications as directed and call or return if you experience side effects - Counseling advised for depression that is not under good control or if new emotional stre ssors develop - return if symptoms worsen or if you are having thoughts of self harm - Use your social support network to help you as needed - Work into your schedule activities that are stress relieving and improve your emotional w ell being. 2. Back pain, unspecified back pain laterality, unspecified chronicity, unspecified locatio n Resolved. Follow-up if returns 3. Vitamin D deficiency Refilled her supplement Prescription for Vitamin D-3 1,000 units daily sent to pharmacy. - cholecalciferol (VITAMIN D-3) 1,000 units capsule; Take 1 capsule by mouth Daily. Dispen se: 30 capsule; Refill: 1 4. Dysuria Discussed calling [facility] and waiting for those results to decide on any antibiotics. Discussed if the UA comes back normal then her symptoms are from all the caffeine she has b een drinking and she will half to stop. Follow-up: next available 15 min Care instructions and warning signs were discussed. Medications per orders. Side effects discussed. Labs and investigations per orders. I Villa Lynn am acting as a scribe on behalf of, and in the presence of JUSTYN Rodriges. RHODA Santana 04/04/16 I, JUSTYN Rodriges, personally performed the services described in this documentation , as scribed in my presence and it is both accurate and complete.: JUSTYN Babcock 04/04/16 documented in th is encounter Plan of [...] [place] | | | | | | [address] | | | | | | | | +--------+---------+ + + + documented as of this encounter Visit Diagnoses + + | Diagnosis | + + | Anxious depression - Primary | + + | Back pain, unspecified back pain laterality, unspecified chronicity, unspecified | | location | + + | Vitamin D deficiency Unspecified vitamin D deficiency | + + | Dysuria | + + documented in this encounter
--- OUTSIDE RECORDS SUMMARY | ~2019-10-23 | XMS | Encounter Summary ---
Demographics + + + | Address | [address] | | | [place] [address] | + + + | Home Phone | | + + + | Preferred Language | Unknown | + + + | Marital Status | Single | + + + | Muslim Affiliation | 1077 | + + + | Race | Unknown | + + + | Ethnic Group | Unknown | + + + Author + + + | Author | [facility] | | | and Rainerana | + + + | Organization | 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 | + +--------+ + + + | LIPID PANEL | Routin | 04/06/2014 | | Results for this | | | e | 10:35 AM | | procedure are in the | | | | PDT | | results section. | + +--------+ + + + | VITAMIN D, | Routin | 04/06/2014 | | Results for this | | DEFICIENCY SCREEN | e | 10:35 AM | | procedure are in the | | (25-HYDROXY) | | PDT | | results section. | + +--------+ + + + | COMPREHENSIVE | Routin | 04/06/2014 | | Results for this | | METABOLIC PANEL | e | 10:35 AM | | procedure are in the | | | | PDT | | results section. | + +--------+ + + + | EXTERNAL LAB: AST | Routin | 04/06/2014 | | Results for this | | | e | 9:09 AM | | procedure are in the | | | | PDT | | results section. | + +--------+ + + + | EXTERNAL LAB: ALT | Routin | 04/06/2014 | | Results for this | | | e | 9:09 AM | | procedure are in the | | | | PDT | | results section. | + +--------+ + + + | EXTERNAL LAB: TSH | Routin | 04/06/2014 | | Results for this | | | e | 9:09 AM | | procedure are in the | | | | PDT | | results section. | + +--------+ + + + | EXTERNAL LAB: | Routin | 04/06/2014 | | Results for this | | CHOLESTEROL, NON HDL | e | 9:09 AM | | procedure are in the | | LP | | PDT | | results section. | + +--------+ + + + | EXTERNAL LAB: | Routin | 04/06/2014 | | Results for this | | TRIGLYCERIDES | e | 9:09 AM | | procedure are in the | | | | PDT | | results section. | + +--------+ + + + | EXTERNAL LAB: | Routin | 04/06/2014 | | Results for this | | CHOLESTEROL, HDL | e | 9:09 AM | | procedure are in the | | | | PDT | | results section. | + +--------+ + + + | EXTERNAL LAB: | Routin | 04/06/2014 | | Results for this | | CHOLESTEROL, TOTAL | e | 9:09 AM | | procedure are in the | | | | PDT | | results section. | + +--------+ + + + | EXTERNAL LAB: | Routin | 04/06/2014 | | Results for this | | CHOLESTEROL, LDL | e | 9:09 AM | | procedure are in the | | | | PDT | | results section. | + +--------+ + + + | EXTERNAL LAB: | Routin | 04/06/2014 | | Results for this | | MICROALBUMIN/CREATIN | e | 9:09 AM | | procedure are in the | | INE RATIO, URINE | | PDT | | results section. | + +--------+ + + + | EXTERNAL LAB: | Routin | 04/06/2014 | | Results for this | | MICROALBUMIN, URINE | e | 9:09 AM | | procedure are in the | | | | PDT | | results section. | + +--------+ + + + | EXTERNAL LAB: EGFR | Routin | 04/06/2014 | | Results for this | | | e | 9:09 AM | | procedure are in the | | | | PDT | | results section. | + +--------+ + + + | EXTERNAL LAB: | Routin | 04/06/2014 | | Results for this | | HEMOGLOBIN A1C | e | 9:09 AM | | procedure are in the | | | | PDT | | results section. | + +--------+ + + + documented in this encounter Results Vitamin D, 25-Hydroxy (04/06/2014 10:35 AM PDT) + +-------+ + + + | Component | Value | Ref Range | Performed | Pathologist | | | | | At | Signature | + +-------+ + + + | Vit D, | 28 | | [facility] | | | 25-Hydroxy | | | [facility] | | [...] + | [facility] | [address] | [place] | [phone] | | [facility] | | [address] | | | - LABORATORY | | | | + + + + + | [facility] | [address] | [place], [place] | | | [facility] | | [address] | | | - LABORATORY | | | | + + + + + Comprehensive Metabolic Panel (04/06/2014 10:35 AM PDT) + +-------+ + + + | Component | Value | Ref Range | Performed | Pathologist | | | | | At | Signature | + +-------+ + + + | Na | 137 | mmol/L | [facility] | | [facility] | [facility] | [facility] - | | | | | | LAB[facility]ATORY | | + +-------+ + + + | K | 3.9 | mmol/L | [facility] | | [facility] | | | | | | [facility] | | | | | [facility] - | | | | | | LABORATORY | | + +-------+ + + + | Chloride | 103 | | [facility] | | | [facility] | | | | | | [facility] | | | | | [facility] - | | | | | | LABORATORY | | + +-------+ + + + | CO2 | 25 | mmol/L | [facility] | [facility] | | | | | | [facility] | | | | | [facility] - | | | | | | LABORATORY | | + +-------+ + + + | Anion Gap | 13 | mmol/L | [facility] | | [facility] | [facility] | | | | | | [facility] | | | | | [facility] - | | | | | | LABORATORY | | + +-------+ + + + | Glucose | 102 | mg/dL | [facility] | [facility] | | | | | | [facility] | | | | | | [facility] - | | | | | | LABORATORY | | + +-------+ + + + | BUN | 16 | mg/dL | [facility] | | | | | [facility] | | | | | | [facility] | | | | | | [facility] - | | | | | | LABORATORY | | + +-------+ + + + | Bun/Creatin | 17.2 | | [facility] | | | ine | | | [facility] | | | | | | [facility] | | | | | | CENTER - | | | | | | LABORATORY | | + +-------+ + + + | Calcium | 9.3 | mg/dL | [facility] | | | | | [facility] | | | | | | [facility] | | | | | | [facility] - | | | | | | LABORATORY | | + +-------+ + + + | Total | 6.8 | 6.1 - 8.4 g/dL | [facility] | | | Protein | | | [facility] | | | | | | [facility] | | | | | | [facility] - | | | | | | LABORATORY | | + +-------+ + + + | Bilirubin | 0.3 | mg/dL | [facility] | | | Total | | | [facility] | | [facility] | [facility] | | | | | | [facility] - | | | | | | LABORATORY | | + +-------+ + + + | Albumin | 3.7 | 3.3 - 4.8 g/dL | [facility] | | | | | | [facility] | | | | | | [facility] | | | | | | [facility] - | | | | | | LABORATORY | | + +-------+ + + + | Globulin | 3.1 | | [facility] | | | | | | [facility] | | | | | | [facility] | | | | | | [facility] - | | | | | | LABORATORY | | + +-------+ + + + | Albumin/Cindy | 1.2 | | [facility] | | | bulin Ratio | | | [facility] | | | | | | [facility] | | | | | | CENTER - | | | | | | LABORATORY | | + +-------+ + + + | Alkaline | 93 | U/L | [facility] | | | Phosphatase | | | [facility] | | | | | | MEDICAL | | | | | | CENTER - | | | | | | LABORATORY | | + +-------+ + + + | Creatine, | 0.93 | | [facility] | | | Serum | | | [facility] | | [...] + | [facility] | [address] | [place], [place] | [phone] | | [facility] | | [address] | | | - LABORATORY | | | | + + + + + | [facility] | [address] | [place], [place] | | | [facility] | | [address] | | | - LABORATORY | | | | + + + + + Lipid Panel (04/06/2014 10:35 AM PDT) + +-------+ + + + | Component | Value | Ref Range | Performed | Pathologist | | | | | At | Signature | + +-------+ + + + | VLDL | 23 | | | | | Cholesterol | | | | | | Nic | | | | | + +-------+ + + + | Chol/HDL | 2.6 | | | | | Ratio | | | | | + +-------+ + + + + + | Specimen | + + | Blood specimen | | (specimen) | + + Creatinine, Urine (04/06/2014 10:35 AM PDT) + +-------+ + + + | Component | Value | Ref Range | Performed | Pathologist | | | | | At | Signature | + +-------+ + + + | Creatinine, | 297 | mg/dL | | | | Urine | | | | | + +-------+ + + + + + | Specimen | + + | Urine specimen | | (specimen) | + + External Lab: TSH (04/06/2014 9:09 AM PDT) + +-------+ + + + | Component | Value | Ref Range | Performed | Pathologist | | | | | At | Signature | + +-------+ + + + | TSH, | 4.99 | | | | | External | | | | | + +-------+ + + + + + | Specimen | + + | Blood specimen | | (specimen) | + + External Lab: eGFR (04/06/2014 9:09 AM PDT) + +-------+ + + + | Component | Value | Ref Range | Performed | Pathologist | | | | | At | Signature | + +-------+ + + + | eGFR, | 61 | | | | | External | | | | | + +-------+ + + + | eGFR, | | | | | | | | | | | | Brazilian, | | | | | | External | | | | | + +-------+ + + + + + | Specimen | + + | Blood specimen | | (specimen) | + + External Lab: Hemoglobin A1c (04/06/2014 9:09 AM PDT) + +-------+ + + + | Component | Value | Ref Range | Performed | Pathologist | | | | | At | Signature | + +-------+ + + + | Hemoglobin | 5.8 | | | | | A1c, | | | | | | external | | | | | + +-------+ + + + + + | Specimen | + + | Blood specimen | | (specimen) | + + External Lab: AST (04/06/2014 9:09 AM PDT) + +-------+ + + + | Component | Value | Ref Range | Performed | Pathologist | | | | | At | Signature | + +-------+ + + + | AST, | 21 | | | | | External | | | | | + +-------+ + + + + + | Specimen | + + | Blood specimen | | (specimen) | + + External Lab: ALT (04/06/2014 9:09 AM PDT) + +-------+ + + + | Component | Value | Ref Range | Performed | Pathologist | | | | | At | Signature | + +-------+ + + + | ALT, | 17 | | | | | External | | | | | + +-------+ + + + + + | Specimen | + + | Blood specimen | | (specimen) | + + External Lab: Cholesterol, Non HDL LP (04/06/2014 9:09 AM PDT) + +-------+ + + + | Component | Value | Ref Range | Performed | Pathologist | | | | | At | Signature | + +-------+ + + + | Cholesterol | 85 | | | | | , Total, | | | | | | Non HDL-C | | | | | | (LDL+VLDL), | | | | | | External | | | | | + +-------+ + + + + + | Specimen | + + | Blood specimen | | (specimen) | + + External Lab: Triglycerides (04/06/2014 9:09 AM PDT) + +-------+ + + + | Component | Value | Ref Range | Performed | Pathologist | | | | | At | Signature | + +-------+ + + + | Triglycerid | 116 | | | | | es, | | | | | | External | | | | | + +-------+ + + + + + | Specimen | + + | Blood specimen | | (specimen) | + + External Lab: Cholesterol, HDL (04/06/2014 9:09 AM PDT) + +-------+ + + + | Component | Value | Ref Range | Performed | Pathologist | | | | | At | Signature | + +-------+ + + + | HDL | 53.4 | | | | | Cholesterol | | | | | | , External | | | | | + +-------+ + + + + + | Specimen | + + | Blood specimen | | (specimen) | + + External Lab: Cholesterol, Total (04/06/2014 9:09 AM PDT) + +-------+ + + + | Component | Value | Ref Range | Performed | Pathologist | | | | | At | Signature | + +-------+ + + + | Cholesterol | 138 | | | | | , Total, | | | | | | External | | | | | + +-------+ + + + + + | Specimen | + + | Blood specimen | | (specimen) | + + External Lab: Cholesterol, LDL (04/06/2014 9:09 AM PDT) + +-------+ + + + | Component | Value | Ref Range | Performed | Pathologist | | | | | At | Signature | + +-------+ + + + | LDL | 61 | | | | | Cholesterol | | | | | | , Direct, | | | | | | External | | | | | + +-------+ + + + + + | Specimen | + + | Blood specimen | | (specimen) | + + External Lab: Microalbumin/Creatinine Ratio, Urine (04/06/2014 9:09 AM PDT) + +-------+ + + + | Component | Value | Ref Range | Performed | Pathologist | | | | | At | Signature | + +-------+ + + + | Microalbumi | 31.3 | | | | | n/Creatinin | | | | | | e Ratio, | | | | | | External | | | | | + +-------+ + + + + + | Specimen | + + | Blood specimen | | (specimen) | + + External Lab: Microalbumin, Urine (04/06/2014 9:09 AM PDT) + +-------+ + + + | Component | Value | Ref Range | Performed | Pathologist | | | | | At | Signature | + +-------+ + + + | Microalbumi | 9.3 | | | | | n, Urine, | | | | | | External | | | | | + +-------+ + + + + + | Specimen | + + | Blood specimen | | (specimen) | + + documented in this encounter Visit Diagnoses Not on filedocumented in this encounter"
--- OUTSIDE RECORDS SUMMARY | ~2019-10-23 | XMS | Encounter Summary ---
Demographics + + + | Address | [address] | | | [place] [address] | + + + | Home Phone | | + + + | Preferred Language | Unknown | + + + | Marital Status | Single | + + + | Jainism Affiliation | 1077 | + + + | Race | Unknown | + + + | Ethnic Group | Unknown | + + + Author + + + | Author | [facility] | | | and Rainerana | + + + | Organization | [facility] | | | and Rainerana | + + + | Address | Unknown | + + + | Phone | Unavailable | + + + Support + + + + + | Name | Relationship | Address | Phone | + + + + + | Aleks Noguera | BRYANT | [address] | | | | | [place], [place] | | | | | [address] | | + + + + + | Jelena Hill | ECON | [place] | | | | | [address] | | + + + + + Care Team Providers + +------+ + | Care Continuous Yarn Dyeing Machine Operator Name | Role | Phone | + +------+ + | Ivy Sun | PCP | | + +------+ + Reason for Visit +---------+ + | Reason | Comments | +---------+ + | Results | lab | +---------+ + Encounter Details +--------+ + + + + | Date | Type | Department | Care Team | Description | +--------+ + + + + | 10/19/ | Telephone | [facility] | Ivy Sun | Results (lab ) | | 2012 | | MEDICINE [place] | [place] [address] | | | | | [address] | [place] | | | | | [place] | [address] | | | | | [address] | | | | | | [phone] | | | +--------+ + + + [...] [place] | | | | | | [address] | | | | | | | | +--------+---------+ + + + documented as of this encounter Visit Diagnoses + + | Diagnosis | + + | Unspecified vitamin D deficiency - Primary | + + documented in this encounter"
--- OUTSIDE RECORDS SUMMARY | ~2019-10-23 | XMS | Encounter Summary ---
Demographics + + + | Address | [address] | | | [place] [address] | + + + | Home Phone | | + + + | Preferred Language | Unknown | + + + | Marital Status | Single | + + + | Hoahaoism Affiliation | 1077 | + + + | Race | Unknown | + + + | Ethnic Group | Unknown | + + + Author + + + | Author | [facility] | | | and Rainerana | + + + | Organization | [facility] | | | and Rainerana [...] [place], [place] | | | | | [address] | | + + + + + | Jelena Hill | ECON | [place] | | | | | [address] | | + + + + + Care Team Providers + +------+ + | Care Machine Operator Slitter Technician Name | Role | Phone | + +------+ + | Ivy Sun | PCP | | + +------+ + Reason for Visit + + + | Reason | Comments | + + + | Medication | | | Management | | + + + Encounter Details +--------+ + + + + | Date | Type | Department | Care Team | Description | +--------+ + + + + | 02/05/ | Telephone | [facility] | Ivy Sun | Medication | | 2019 | | [facility] | [place] [address] | Management | | | | [address] | [place] | | | | | [place] | [address] | | | | | [address] | | | | | | [phone] | | | +--------+ + + + [...] | Visit | | [place] [address] | | | | | | [place] | | | | | | [address] | | | | | | | | +--------+---------+ + + + documented as of this encounter Visit Diagnoses Not on filedocumented in this encounter"
--- OUTSIDE RECORDS SUMMARY | ~2019-10-23 | XMS | Encounter Summary ---
Demographics + + + | Address | [address] | | | [place] [address] | + + + | Home Phone | | + + + | Preferred Language | Unknown | + + + | Marital Status | Single | + + + | Uatsdin Affiliation | 1077 | + + + | Race | Unknown | + + + | Ethnic Group | Unknown | + + + Author + + + | Author | [facility] | | | and Rainerana | + + + | Organization | [facility] | | | and [...] [place], [place] | | | | | [address] | | + + + + + | Jelena Hill | ECON | [place] | | | | | [address] | | + + + + + Care Team Providers + +------+ + | Care J2Ee Developer Name | Role | Phone | + +------+ + | Ivy Sun | PCP | | + +------+ + Reason for Visit + + + | Reason | Comments | + + + | Diabetes Education | | + + + Encounter Details +--------+ + + + + | Date | Type | Department | Care Team | Description | +--------+ + + + + | 04/08/ | Telephone | [facility] | Ivy Sun | Diabetes Education | | 2013 | | MEDICINE [place] | [place] [address] | | | | | [address] | [address] [place], [place] | | | | | [place], [place] | [address] | | | | | [address] | | | | | | [phone] | | | +--------+ + + + [...] [place] | | | | | | [address] | | | | | | | | +--------+---------+ + + + documented as of this encounter Visit Diagnoses Not on filedocumented in this encounter"
--- OUTSIDE RECORDS SUMMARY | ~2019-10-23 | XMS | Encounter Summary ---
Demographics + + + | Address | [address] | | | [place] [address] | + + + | Home Phone [...] + + + | Author | [facility] | | | and Rainerana | + + + | Organization | [facility] | | | and Rainerana [...] [place], [place] | | | | | [address] | | + + + + + | Jelena Hill | ECON | [place], [place] | | | | | [address] | | + + + + + Care Team Providers + +------+ + | Care Cylinder Batcher Name | Role | Phone | + [...] + + | 08/11/ | Office | [facility] | Reymundo Guillory | Restless legs | | 2011 | Visit | SLEEP DISORDER [address] | MD [address] | syndrome (RLS); | | | | [address] | [address] | Shift work sleep | | | | [place] [address] | [place] [address] | disorder; | | | | [phone] | [phone] | Obstructive sleep | | | | [...] [place] | | | | | | [address] | | | | | | | [...] + + | Performing | Address | City/[facility]/Zipcode | Phone Number | | Organization | | | | + + + + + | [facility] | [address] | [place] | [phone] | | [facility] | | [address] | | | - LABORATORY | | | | + + + + + | [facility] | [address] | [place] | | | [facility] | | [address] | | | - LABORATORY | | [...]
--- OUTSIDE RECORDS SUMMARY | ~2019-10-23 | XMS | Encounter Summary ---
Demographics + + + | Address | [address] | | | [place] [address] | + + + | Home Phone [...] + + + | Author | [facility] | | | and Rainerana | + + + | Organization | [facility] | | | and Rainerana [...] [place], [place] | | | | | [address] | | + + + + + | [address]ena [place] | ECON | [place] | | | | | [address] | | + + + + + Care Team Providers + +------+ + | Care [employer] Crew Boss Name | Role | Phone | + +------+ + | Ivy Sun | PCP | | + +------+ + Reason for Visit + + + | Reason | Comments | + + + | Pre-Diabetes | | + + + | Hypertension | | + + + | Hyperlipidemia | | + + + Encounter Details +--------+---------+ + + + | Date | Type | Department | Care Team | Description | +--------+---------+ + + + | 11/12/ | Office | [facility] | Ivy Sun | Prediabetes (Primary | | 2019 | Visit | [facility] | JUSTYN Keating [address] | Dx); Mixed | | | | [address] | [place], [place] | hyperlipidemia; | | | | [place], [place] | [address] | Essential | | | | [address] | | hypertension; | | | | [phone] | | Vitamin D | | | | | | deficiency; | | | | | | Decreased GFR | +--------+---------+ + + + Social History [...] + + + | Blood Pressure | 112/78 | 11/12/2018 9:11 AM | | | | | PST | | + + + + + | Pulse | 120 | 11/12/2018 9:11 AM | | | | | PST | | + + + + + | Temperature | 36.8 C (98.3 F) | 11/12/2018 9:11 AM | | | | | PST | | + + + + + | Respiratory Rate | 16 | 11/12/2018 9:11 AM | | | | | PST | | + + + + + | Oxygen Saturation | 96% | 11/12/2018 9:11 AM | | | | | PST | | + + + + + | Inhaled Oxygen | - | - | | | Concentration | | | | + + + + + | Weight | 133 kg (293 lb 3.4 | 11/12/2018 9:11 AM | | | | oz) | PST | | + + + + + | Height | 170.2 cm (5' 7.01") | 11/12/2018 9:11 AM | | | | | PST | | + + + + + | Body Mass Index | 45.91 | 11/12/2018 9:11 AM | | | | | PST | | + + + + + documented in this encounter Patient Instructions Patient Instructions Dori Campbell, Beef Farmer - 11/12/2018 9:00 AM PSTBegin checking your blood sugars and keeping a log. documented in this encounter Progress Notes Iyv Sun ARNP - 11/12/2018 9:00 AM PSTFormatting of this note might be differen t from the original. Lucie Miller is a 68 y.o. female Chief Complaint: Pre-Diabetes; Hypertension; and Hyperlipidemia HPI DIABETES : Control and Compliance Diet: She understands dietary principles and is not following Her diet appropriately. Exercise: none He is checking home blood sugars. Home fasting blood sugars average: not checking Post Prandial: no checking On an JENIFER / ARB: yes On a Statin: yes Body mass index is 45.91 kg/m. Wt Readings from Last 3 Encounters: 11/12/18 133 kg (293 lb 3.4 oz) 11/03/18 135 kg (297 lb 9.9 oz) 10/01/18 132 kg (291 lb 0.1 oz) BP: 112/78 Denies/reports: Side effects of Medications Hypoglycemic symptoms: Denies sweats, nausea, confusion, and weakness. Hyperglycemic symptoms: Denies polyuria, polydipsia, and blurred vision. No sensory loss is reported. Self foot exams are being performed. No vision problems No nausea/vomiting/bloating, No lightheadedness/orthostasis No infections, ulcerations, or sores Labs Lab Results Component Value Date HBA1C 6.0 (A) 09/30/2018 HBA1C 6.3 (H) 03/06/2018 HBA1C 6.1 (H) 07/30/2017 Lab Results Component Value Date GLUF 111 01/16/2014 Hypertension: Control and Compliance Medication compliance: good Home Blood Pressures: Not checking BP: 112/78 BP Readings from Last 3 Encounters: 11/12/18 112/78 11/03/18 (!) 150/114 10/01/18 110/84 Pt denies: No headache, visual symptoms, neurologic problems, syncope No chest pain, palpitations, ROSAS, orthopnea, PND, peripheral edema No side effects from any antihypertensive medications HYPERLIPIDEMIA: Patient is compliant with medications. Diet: Low fat, low carb dietary compliance: not following Denies side effects of medications. Denies Myalgias, abdominal pain, jaundice, constipatio n. No evidence of medication toxicity Denies chest pain, shortness of breath Additional measures started by the patient to reduce lipids include: aerobic exercise :none weight reduction: Vitals 08/18/2018 10/01/2018 11/03/2018 11/03/2018 11/03/2018 Weight 295 lbs 10 oz 291 lbs 297 lbs 10 oz Vitals 11/03/2018 11/12/2018 Weight4 293 lbs 3 oz Lab Results Component Value Date LDL 104 07/30/2017 Vitamin D Deficiency: Has not been taking her Vitamin D-3 84141 units weekly. Not taking OT C vitamin d. Ref. Range 03/06/2018 10:40 Vitamin D, 25 Hydroxy Latest Ref Range: 30 - 80 ng/mL 51 Decreased GFR: Labs done 11-03-18 reviewed and GFR mildly decreased. creatinine normal Ref. Range 11/26/2016 12:49 07/30/2017 11:10 11/03/2018 12:14 EGFR IF NOT Latest Ref Range: >=60 mL/min/1.73m2 >60 >60 57 (L) PREVENTIVE CARE/PRIOR VISITS 1. Any recommendations from Health Maintenance: zoster Preventative Services TOPIC LAST DONE NEXT DUE Adult Annual Wellness Visit 10/01/2018 10/01/2019 Hepatitis C Screening 07/30/2017 Colorectal Cancer Screening (Colonoscopy) 05/22/2011 05/22/2021 Vaccine: Influenza 10/01/2018 Breast Cancer Screening (Mamm Q2 Years 50-74) 10/03/2018 10/03/2020 Vaccine: Dtap/Tdap/Td 07/24/2016 07/24/2026 Vaccine: Pneumococcal 65+ Low/Medium Risk 10/01/2018 Vaccine: Zoster 05/13/2013 07/08/2013 2. Any immunizations necessary: zoster Immunization History Administered Date(s) Administered INFLUENZA 65 Y OR >, TRIVALENT HIGH-DOSE 10/01/2018 INFLUENZA PF 18 Y OR >,TRIVALENT RECOMBINANT 08/25/2012, 10/14/2013 INFLUENZA PF 4Y OR >,QUAD DERIVED FROM TISS-CULT 07/30/2017 INFLUENZA PF QUAD(PED/ADOL/ADULT),PSKT or VIAL 11/10/2014, 08/17/2015, 07/24/2016 PNEUMOCOCCAL CONJUGATE 13-VALENT (PCV13) 07/30/2017 PNEUMOCOCCAL POLYSACCHARIDE 23-VALENT (PPSV23) 08/25/2012, 10/01/2018 TDAP, (ADOL/ADULT) 01/15/2007, 07/24/2016 ZOSTER, 1 DOSE (ADULT) 05/13/2013 3. Has patient been involved in medical events/hospitalizations since their last visit: No No Known Allergies Medications: Patient Reported Taking Dosage aspirin (ASPIRIN ADULT LOW STRENGTH) 81 MG EC tablet (Taking) Take 81 mg by mouth Daily. Number of times this order has been changed since signin Order Audit [place] Blood Glucose Calibration (OT ULTRA/FASTTK CNTRL SOLN) SOLN (Taking) Use to calibrate glu cometer Number of times this order has been changed since signin Order Audit [place] Blood Glucose Monitoring Suppl (ONE TOUCH ULTRA SYSTEM KIT) w/Device KIT (Taking) Use to check blood sugars 3 times weekly. Number of times this order has been changed since signin Order Audit [place] ferrous sulfate 325 mg tablet (Taking) Take 1 tablet by mouth 2 times daily. Number of times this order has been changed since signin Order Audit Lemont gabapentin (NEURONTIN) 600 MG tablet (Taking) Take 1 tablet by mouth nightly. Number of times this order has been changed since signin Order Audit [place]ont glucose blood test strips (ONE TOUCH ULTRA TEST) strip (Taking) Test fasting 3 times w jt, and check 30 min pre and 2 hours post main meal Number of times this order has been changed since signin Order Audit [place] HYDROcodone-acetaminophen (NORCO) 5-325 mg per tablet (Taking/Discontinued) Take 1 tablet by mouth every 6 hours as needed for Pain. Number of times this order has been changed since signin Order Audit [place]ont ibuprofen (ADVIL, MOTRIN) 400 mg tablet (Taking/Discontinued) Take 1 tablet by mouth ever y 6 hours as needed for Pain. Number of times this order has been changed since signin Order Audit [place]ont lisinopril (PRINIVIL, ZESTRIL) 5 mg tablet (Taking) Take 1 tablet by mouth Daily. Number of times this order has been changed since signin Order Audit [place] metFORMIN (GLUCOPHAGE) 500 mg tablet (Taking) TAKE ONE TABLET BY MOUTH DAILY WITH BREAKFA ST Number of times this order has been changed since signin Order Audit [place]ont nortriptyline (PAMELOR) 10 MG capsule (Taking) TAKE THREE CAPSULES BY MOUTH NIGHTLY Number of times this order has been changed since signin Order Audit [place] ONE TOUCH ULTRASOFT LANCETS MISC (Taking) Use to check blood sugars 3 times a week Number of times this order has been changed since signin Order Audit Lemont oxybutynin (DITROPAN-XL) 10 MG 24 hr tablet (Taking) Take 1 tablet by mouth Daily. Number of times this order has been changed since signin Order Audit Lemont PARoxetine (PAXIL) 40 MG tablet (Taking) TAKE ONE TABLET BY MOUTH DAILY Number of times this order has been changed since signin Order Audit [place] rOPINIRole (REQUIP) 2 MG tablet (Taking) TAKE ONE TABLET BY MOUTH NIGHTLY Number of times this order has been changed since signin Order Audit Lemont simvastatin (ZOCOR) 10 mg tablet (Taking) TAKE ONE TABLET BY MOUTH ONCE NIGHTLY Number of times this order has been changed since signin Order Audit Lemont UNABLE TO FIND (Taking) Med Name: Resmed AirSense 10 autoset CPAP: 13-20cm while sleeping . UNCODED MEDICATION (Taking) Diagnosis: Obstructive Sleep Apnea ICD-9: 327.23 Length of Need: 99 Months Number of times this order has been changed since signin Order Audit Lemont UNCODED MEDICATION (Taking) Wear at all times while sleeping. Number of times this order has been changed since signin Order Audit [place] Past Medical History She has a past medical history of Abnormal glandular Papanicolaou smear of cervix; Anxiety state, unspecified; Aortic root enlargement (HCC) (01/13/2014); Bronchitis, not specified as acute or chronic; Cataract (); Depressed; Disorder of bone and cartilage, unspecified; Eczema; Elevated hemoglobin A1c (10/31/2018); Encounter for hearing conservation and treatmen t; H/O diagnostic tests (12/14/2013); Hearing loss; History of compression fracture of spine (08/17/2015); Hyperlipidemia; Insomnia, unspecified; Menopausal and perimenopausal disorder (2003); OAB (overactive bladder) (11/28/2016); KAMERON (obstructive sleep apnea); Osteoporosis; Ot her seborrheic keratosis; Prediabetes (12/09/2013); Restless leg syndrome; Rosacea ( 3); Rotator cuff (capsule) sprain; Routine gynecological examination; Seborrheic dermatitis (10/14/2013); Smoker; and Sprain of ankle, unspecified site. Past [...] cancer in her p aternal uncle; No Known Problems in her paternal aunt and paternal aunt; Obesity in her mate rnal grandmother; Other (see comment) in her maternal grandmother; Stroke in her father, mat ernal grandfather, and paternal grandfather; Thyroid disease in her sister. 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 Respiratory: Negative for cough, chest tightness and shortness of breath. Cardiovascular: Negative for chest pain and palpitations. Gastrointestinal: Negative for abdominal pain, constipation, diarrhea and nausea. Genitourinary: Negative for dysuria, frequency and urgency. Objective: Vitals: 11/12/18 0911 BP: 112/78 Pulse: 120 Resp: 16 Temp: 36.8 C (98.3 F) TempSrc: Temporal SpO2: 96% Weight: 133 kg (293 lb 3.4 oz) Height: 1.702 m (5' 7.01") Physical Exam [...] orders placed or performed in visit on 11/12/18 External Lab: BUN Result Value Ref Range BUN, External 19 6 - 23 Assessment: 1. Prediabetes 2. Mixed hyperlipidemia 3. Essential hypertension Microalbumin/Creatinine Ratio, Urine 4. Vitamin D deficiency Vitamin D, Deficiency Screen (25-Hydroxy) 5. Decreased GFR Renal Function Panel Plans: 1. Prediabetes Recommended 40-60 grams carbs per meal, 15 gram carb with protein for mid morning & mid aft ernoon snack. All meals and snacks should include a protein. Should be eating 3 meals daily rather then 1. Will begin checking her blood sugars and keeping a log. 2. Mixed hyperlipidemia -. Take meds as directed -. Discussed regular cardiovascular exercise and maintaining healthy wt. -. Avoid high fat/cholesterol diet -. Lipid panel and LFT's reviewed. and f/u labs ordered 3. Essential hypertension -. Blood pressure stable and goals discussed all -. Continue current medications - Advised low salt diet - Advised regular cardiovascular exercise -. Labs reviewed and discussed with the patient - Follow up as needed if blood pressures are above goal - Microalbumin/Creatinine Ratio, Urine; Future 4. Vitamin D deficiency Due for labs. Ordered - Vitamin D, Deficiency Screen (25-Hydroxy); Future 5. Decreased GFR GFR decreased to 51 on 11/03/18. Will recheck renal panel in 3 months. Advised patient to s ana m well hydrated and stay away from NSAIDs. Labs ordered today. - Renal Function Panel; Future Follow-up: Return in about 3 months (around 02/10/2019) for prediabetes, , Lipids, Hypertens ion. Care instructions and warning signs were discussed. Medications per orders. Side effects discussed. Labs and investigations per orders. Sandra Dewitt Assistant am acting as a scribe on behalf of, and in the pres ence of JUSTYN Rodriges. Electronically signed by: Sandra Carter 11/12/18 9:01 IIvy ARNP personally performed the services described in this documentati on, as scribed by Dori Campbell CMA in my presence, and are both accurate and complete. Electronically Signed by: JUSTYN Babcock 11/13/18 17:50 documented in th is encounter Plan of [...] [place] | | | | | | [address] | | | | | | | | +--------+---------+ + + + documented as of this encounter Results Microalbumin/Creatinine Ratio, Urine (07/22/2019 11:46 AM PDT) + +-------+ + + + | Component | Value | Ref Range | Performed | Pathologist | | | | | At | Signature | + +-------+ + + + | Microalbumi | 0.6 | <1.8 mg/dL | [facility] | | | n, Urine, | | | [facility] | | | Random | | | MEDICAL | | | | | | CENTER - | | | | | | LABORATORY | | + +-------+ + + + | Creatinine, | 199 | mg/dL | [facility] | | | Urine, | | | [facility] | | | Random | | | MEDICAL | | | | | | CENTER - | | | | | | LABORATORY | | + +-------+ + + + | Microalbumi | 3 | <30 mg/g | [facility] | | | n/Creatinin | | | [facility] | | | ratio | | | MEDICAL | | | [...] + | [facility] | [address] | [place] | [phone] | | [facility] | | [address] | | | - LABORATORY | | | | + + + + + Vitamin D, Deficiency Screen (25-Hydroxy) (11/12/2018 10:15 AM PST) + +-------+ + + + | Component | Value | Ref Range | Performed | Pathologist | | | | | At | Signature | + +-------+ + + + | Vitamin D, | 31 | 30 - 80 ng/mL | [facility] | | | 25 Hydroxy | | | [facility] | | | | | | MEDICAL [...] + | [facility] | [address] | [place], [place] | [phone] | | [facility] | | [address] | | | - LABORATORY | | | | + + + + + documented in this encounter Visit Diagnoses + + | Diagnosis | + + | Prediabetes - Primary Other abnormal glucose | + + | Mixed hyperlipidemia | + + | Essential hypertension Unspecified essential hypertension | + + | Vitamin D deficiency Unspecified vitamin D deficiency | + + | Decreased GFR Nonspecific abnormal results of kidney function study | + + documented in this encounter
--- OUTSIDE RECORDS SUMMARY | ~2019-10-23 | XMS | Encounter Summary ---
Demographics + + + | Address | [address] | | | [place] [address] | + + + | Home Phone [...] + + | Author | [facility] | | | and Rainerana | + + + | Organization | [facility] | | | and [...] [place], [place] | | | | | [address] | | + + + + + | Jelena Hill | ECON | [place] | | | | | [address] | | + + + + + Care Team Providers + +------+ + | Care Incident Analyst Name | Role | Phone | + +------+ + | Ivy Sun | PCP | | + +------+ + Encounter Details +--------+ + + + + | Date | Type | Department | Care Team | Description | +--------+ + + + + | 08/28/ | Hospital | [facility] | Lorenzo Pryor, | Midline low back | | 2016 | Encounter | [facility] | DO [address] | pain with sciatica, | | | | [address] [place] | [place] [place], [place] | sciatica laterality | | | | [place], [place] | [address] | unspecified, | | | | [address] | | unspecified | | | | [phone] | | chronicity | +--------+ + + + + Social [...] + +---------+ + + | lisinopril | TAKE ONE TABLET BY | 90 | 0 | 08/17/20 | | | (PRINIVIL, ZESTRIL) | MOUTH EVERY MORNING | tablet | | 16 | 6 | | 10 mg tablet | | [...] [place] | | | | | | [address] | | | | | | | | +--------+---------+ + + + documented as of this encounter Procedures + +--------+ + + + | Procedure Name | Priori | Date/Time | Associated Diagnosis | Comments | | | ty | | | | + +--------+ + + + | XR THORACIC SPINE 2 | Routin | 08/28/2016 | Midline low back | Results for this | | VW | e | 11:07 AM | pain with sciatica, | procedure are in the | | | | PDT | sciatica laterality | results section. | | | | | unspecified, | | | | | | unspecified | | | | | | chronicity | | + +--------+ + + + documented in this encounter Results XR Thoracic Spine 2 Vw (08/28/2016 11:07 AM PDT) + + | Specimen | + + | | + + + + + | Narrative | Performed At | + + + | THORACIC SPINE: 08/28/2016 11:07 AM CLINICAL HISTORY: Back pain | [facility] | | COMPARISON: Thoracic MRI 08/01/2016; 08/17/2015 radiographs. | [facility] | | FINDINGS: Focal levoscoliosis centered around T4-T5. [facility][Note 3] | [facility] | | compensatory upper lumbar dextroscoliosis. This is stable when | - IMAGING | | compared to prior. Sagittal alignment is normally maintained. | | | Generalized osteopenia. 50% compression deformity of T12, secondary to | | | inferior endplate depression. This is stable when compared to recent | | | MRI and new since 2014. Stable mild central endplate depression of | | | T8. Generalized osteopenia, sufficient that vertebral margins are | | | somewhat difficult to define by this modality. No other focal bony | | | abnormality is appreciated. Right upper quadrant surgical clips | | | and multiple clips at the hiatus region. No other adjacent soft | | | tissue abnormality. IMPRESSION - 1. Stable upper thoracic | | | levoscoliosis. 2. 50% compression deformity of T12, new since | | | 2014. Generalized osteopenia with stable mild superior endplate | | | depression of T8. Dictated and Signed by: Valdo Reeves MD | | | Electronically signed: 08/28/2016 2:29 PM | | + + + + + | Procedure Note | + + | Yohannes, Rad Results In - 08/28/2016 2:32 PM PDT THORACIC SPINE: 08/28/2016 11:07 AM | | | | CLINICAL HISTORY: Back pain | | | | COMPARISON: Thoracic MRI 08/01/2016; 08/17/2015 radiographs. | | | | FINDINGS: | | Focal levoscoliosis centered around T4-T5. Milder compensatory upper lumbar | | dextroscoliosis. This is stable when compared to prior. Sagittal alignment is | | normally maintained. | | | | Generalized osteopenia. 50% compression deformity of T12, secondary to inferior | | endplate depression. This is stable when compared to recent MRI and new since | | 2014. Stable mild central endplate depression of T8. Generalized osteopenia, | | sufficient that vertebral margins are somewhat difficult to define by this | | modality. No other focal bony abnormality is appreciated. | | | | Right upper quadrant surgical clips and multiple clips at the hiatus region. No | | other adjacent soft tissue abnormality. | | | | IMPRESSION - | | 1. Stable upper thoracic levoscoliosis. | | | | 2. 50% compression deformity of T12, new since 2014. Generalized osteopenia with | | stable mild superior endplate depression of T8. | | | | Dictated and Signed by: Valdo Reeves MD | | Electronically signed: 08/28/2016 2:29 PM | + + + + + + + | Performing | Address | City/State/Zipcode | Phone Number | | Organization | | | | + + + + + | [facility] | [address] | [place] | [phone] | | [facility] | | [address] | | | - IMAGING | | | | + + + + + documented in this encounter Visit Diagnoses + + | Diagnosis | + + | Midline low back pain with sciatica, sciatica laterality unspecified, unspecified | | chronicity | + + documented in this encounter"
--- OUTSIDE RECORDS SUMMARY | ~2019-10-23 | XMS | Encounter Summary ---
Demographics + + + | Address | [address] | | | [place] [address] | + + + | Home Phone [...] | [facility] | | | and Rainerana | + + + | Organization | [facility] | [...] [place], [place] | | | | | [address] | | + + + + + | Jelena Hill | ECON | [place] | | | | | [address] | | + + + + + Care Team Providers + +------+ + | Care Choir Member Name | Role | Phone | + [...] Description | +--------+--------+ + + + | 10/14/ | Refill | [facility] | Ivy Sun | Medication Refill | | 2013 | | MEDICINE [place] | Rishabh, JUSTYN [address] | | | | | [address] | [place] | | | | | [place] | [address] | | | | | [address] | | | | | | [phone] | | | +--------+--------+ + + + [...] [place] | | | | | | [address] | | | | | | | | +--------+---------+ + + + documented as of this encounter Visit Diagnoses Not on filedocumented in this encounter"
--- OUTSIDE RECORDS SUMMARY | ~2019-10-23 | XMS | Encounter Summary ---
Demographics + + + | Address | [address] | | | [place] [address] | + + + | Home Phone | | + + + | Preferred Language | Unknown | + + + | Marital Status | Single | + + + | Scientology Affiliation | [id number] | + + + | Race | Unknown | + + + | Ethnic Group | Unknown | + + + Author + + + | Author | [facility] | | | and Rainerana | + + + | Organization | [facility] | | | and Rainerana | [...] [place], [place] | | | | | [address] | | + + + + + | Jelena Hill | ECON | [place] | | | | | [address] | | + + + + + Care Team Providers + +------+ + | Care Camp Nurse Name | Role | Phone | + [...] Description | +--------+--------+ + + + | 08/17/ | Refill | [facility] | Ivy Sun | Medication Refill | | 2015 | | MEDICINE [place] | Rishabh, JUSTYN [address] | | | | | [address] | [place] | | | | | [place] | [address] | | | | | [address] | | | | | | [phone] | | | +--------+--------+ + + + [...] [place] | | | | | | [address] | | | | | | | | +--------+---------+ + + + documented as of this encounter Visit Diagnoses Not on filedocumented in this encounter"
--- OUTSIDE RECORDS SUMMARY | ~2019-10-23 | XMS | Encounter Summary ---
Demographics + + + | Address | [address] | | | [place] [address] | + + + | Home Phone | | + + + | Preferred Language | Unknown | + + + | Marital Status | Single | + + + | Amish Affiliation | [id number] | + + + | Race | Unknown | + + + | Ethnic Group | Unknown | + + + Author + + + | Author | [facility] | | | and Rainerana | + + + | Organization | [facility] | | | and [...] [place], [place] | | | | | [address] | | + + + + + | J[place]ena [place] | ECON | [place] | | | | | [address] | | + + + + + Care Team Providers + +------+ + | Care Hydroponics Worker Name | Role | Phone | [...] + | 01/28/ | Refill | [facility] | Monika Guerrero, | Medication Refill | | 2019 | | MEDICINE [place] | PHYSICIAN OFFICE REP [address] | | | | | [address] | [place] | | | | | [place] | [address] | | | | | [address] | | | | | | [phone] | | | +--------+--------+ + + + [...] [place] | | | | | | [address] | | | | | | | | +--------+---------+ + + + documented as of this encounter Visit Diagnoses Not on filedocumented in this encounter"
--- OUTSIDE RECORDS SUMMARY | ~2019-10-23 | XMS | Encounter Summary ---
Demographics + + + | Address | [address] | | | [place] [address] | + + + | Home Phone [...] | Author | [facility] | | | and Rainerana | + + + | Organization | [facility] | | | and Rainerana [...] [place], [place] | | | | | [address] | | + + + + + | Jelena Hill | ECON | [place] | | | | | [address] | | + + + + + Care Team Providers + +------+ + | Care International Sourcing Manager Name | Role | Phone | + +------+ + | Ivy Sun | PCP | | + +------+ + Encounter Details +--------+ + + + + | Date | Type | Department | Care Team | Description | +--------+ + + + + | 07/24/ | Hospital | [facility] | Ivy Sun | Derangement 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 | | | | | | Prediabetes | | | | | | + + + +---------+ + + | methocarbamol | Take 500 mg by mouth | | 0 | 07/17/20 | | | (ROBAXIN) 500 mg | 4 times daily. | | | 16 | 6 | | tablet | | | | | | + + + +---------+ + + | nortriptyline | TAKE 3 CAPSULES BY | 270 | 1 | 10/04/20 | | | (PAMELOR) 10 MG | MOUTH NIGHTLY | capsule | | 15 | 6 | | capsule | | | | | | + + + +---------+ + + | PARoxetine (PAXIL) | TAKE ONE TABLET BY | 90 | 0 | 02/28/20 | | | 40 MG tablet | MOUTH DAILY | tablet | | 16 | 6 | + + + +---------+ + + | rOPINIrole | TAKE 1 TABLET BY | 90 | 0 | 03/22/20 | | | (REQUIP) 2 MG tablet | MOUTH NIGHTLY | tablet | | 16 | 6 | + + + +---------+ + + [...] [place] | | | | | | [id number] | | | | | | | | +--------+---------+ + + + documented as of this encounter Procedures + +--------+ + + + | Procedure Name | Priori | Date/Time | Associated Diagnosis | Comments | | | ty | | | | + +--------+ + + + | XR KNEE RIGHT 3 VW | Routin | 07/24/2016 | Derangement of | Results for this | | | e | 11:02 AM | right knee | procedure are in the | | | | PDT | | results section. | + +--------+ + + + documented in this encounter Results XR Knee Right 3 Vw (07/24/2016 11:02 AM PDT) + + | Specimen | + + | | + + + + + | Narrative | Performed At | + + + | EXAM: XR KNEE RIGHT 3 VW HISTORY: right knee derangement | [facility] | | weight bearing TECHNIQUE: AP, lateral, sunrise views of the | . TRISHA | | right knee. AP view [...] + | [facility] | [address] | [place] | [phone] | | [facility] | | [address] | | | - IMAGING | | | | + + + + + documented in this encounter Visit Diagnoses + + | Diagnosis | + + | Derangement of right knee Unspecified internal derangement of knee | + + documented in this encounter"
--- OUTSIDE RECORDS SUMMARY | ~2019-10-23 | XMS | Encounter Summary ---
Demographics + + + | Address | [address] | | | [place] [address] | + + + | Home Phone | | + + + | Preferred Language | Unknown | + + + | Marital Status | Single | + + + | Yazdanism Affiliation | [id number] | + + + | Race | Unknown | + + + | Ethnic Group | Unknown | + + + Author + + + | Author | [facility] | | | and Rainerana | + + + | Organization | [facility] [...] [place], [place] | | | | | [address] | | + + + + + | Jelena Hill | ECON | [place] | | | | | [address] | | + + + + + Care Team Providers + +------+ + | Care Data Management Name | Role | Phone | + [...] + + | Closed | Specialty | Diabetes | Diagnoses | Dino, | [facility] | | | Services | Educator / | Prediabetes | Ivy Keating, | Diabetes | | | Required | Diabetes | | MATERNITY FLOOR SUPERVISOR [address] | Education | | | | Services | | [address] | [address] | | | | | | [place], | [place], | | | | | | [place] [address] | [place] | | | | | | Phone: | [phone] | | | | | | [phone] | Phone: | | | | | | Fax: | [phone] | | | | | | [phone] | Fax: | | | | | | | [phone] | +--------+ + + + + + Reason for Visit + + + | Reason | Comments | + + + | Follow-up | prediabetes | + + + | Vaginal Bleeding | postmenopausal vaginal bleeding | + + + Encounter Details +--------+---------+ + + + | Date | Type | Department | Care Team | Description | +--------+---------+ + + + | 04/07/ | Office | [facility] | Ivy Sun | Prediabetes (Primary | | 2013 | Visit | [facility] [place] | L, JUSTYN [address] | Dx); Postmenopausal | | | | [address] | [address]VE [place] | vaginal bleeding; | | | | [place] | [address] | Vitamin D | | | | [address] | | deficiency; | | | | [phone] | | Hyperlipidemia; | | | | | | HYPERTENSION, | | | | | | CONTROLLED | +--------+---------+ + + + Social History [...] + + + | Blood Pressure | 102/70 | 04/07/2014 8:36 AM | | | | | PDT | | + + + + + | Pulse | 111 | 04/07/2014 8:36 AM | | | | | PDT | | + + + + + | Temperature | 36.4 C (97.5 F) | 04/07/2014 8:36 AM | | | | | PDT | | + + + + + | Respiratory Rate | 16 | 04/07/2014 8:36 AM | | | | | PDT | | + + + + + | Oxygen Saturation | 95% | 04/07/2014 8:36 AM | | | | | PDT | | + + + + + | Inhaled Oxygen | - | - | | | Concentration | | | | + + + + + | Weight | 117.5 kg (259 lb) | 04/07/2014 8:36 AM | | | | | PDT | | + + + + + | Height | 170.2 cm (5' 7") | 04/07/2014 8:36 AM | | | | | PDT | | + + + + + | Body Mass Index | 40.57 | 04/07/2014 8:36 AM | | | | | PDT | | + + + + + documented in this encounter Progress Notes Nia Lai RN - 04/07/2014 1:33 PM PDTMet briefly with patient to address any que stions or concerns she had about new pre-diabetes diagnosis. Patient requested DM education class at [facility]. Referral placed. Ivy Tran ARNP - 04/07/2014 8:52 AM PDT Subjective: Lucie Miller is a 63 y.o. female patient of Ivy Sun. Chief Complaint: Follow-up and Vaginal Bleeding Prediabetes: Has not started her metformin as was waiting for lab results. Had CMP, lipid and A1C done a t interpath yesterday. Reviewed A1C now 5.8. Is not exercising and has gained 4 pounds sin ce last checked. Has been monitoring fasting blood sugars at home. They range from 84-1 hi gh of 122, averaging in the 80s to 90s. She does bring in 2 hour postprandial blood sugars as well. They're averaging in the 90s. She did have one high of 122. Noted bright red blood on tissue yesterday after using the restroom. Had urinated and had B M. Happened again this am and with urination and BM. Has noted some bleeding on pad this am . Feels it is vaginal bleeding. No abdominal pain. Has menopausal for almost 10 years. Has h x of right ovarian cyst. Thinks last US about 5 years ago. Done in [place]. Had endometria l biopsy several years ago. benign Needs recheck of vitamin D level. Has just finished supplementation. HYPERLIPIDEMIA: Diet: Low fat, low carb dietary compliance: fair Denies side effects of medications No evidence of medication toxicity Denies Myalgias, abdominal pain, jaundice, constipation. Labs done 04-06-14. Lipids excellent control. CMP normal LFT Hypertension: Control and Compliance Low Sodium Diet: yes Medication compliance: good Home Blood Pressures: Not checking BP: 102/70 mmHg Pt denies: No headache, visual symptoms, neurologic problems, syncope No chest pain, palpitations, peripheral edema No side effects from any antihypertensive medications No Known Allergies Medications: She has a current medication list which includes the following prescription(s): alendronate , aspirin adult low strength, freestyle lancets, glucose blood vi test strips, lisinopril, m etformin, metronidazole, nortriptyline, paroxetine, ropinirole, simvastatin, triamcinolone, UNCODED MEDICATION, and [...] (10/14/2013); Rosacea (10/14/2013); H/O diagnostic tests (12/14/2013); and Aort ic root enlargement (HCC) (01/13/2014). Past Surgical History She has past surgical history that includes back surgery (1991); gastroplasty (1985); Bunio nectomy (1986); Toe Surgery; Endometrial biopsy (2001); Knee arthroscopy (2005); and Total k nee arthroplasty (07/15/13). Family History: Her family history includes Alzheimer's disease in her mother; Heart attack in her father; Heart disease in her maternal grandfather and paternal grandmother; and Stroke in her patern al grandfather. Social History: She reports that she has quit smoking. Her smoking use included Cigarettes. She has a 7.5 p ack-year smoking history. She has never used smokeless tobacco. She reports that she does no t drink alcohol or use illicit drugs. Review of Systems Pertinent items are noted in HPI. Objective: BP 102/70 | Pulse 111 | Temp 36.4 C (97.5 F) (Temporal) | Resp 16 | Ht 1.702 m (5' 7") | Wt 117.482 kg (259 lb) | BMI 40.56 kg/m2 | SpO2 95% | ? No General Appearance: Alert, cooperative, no distress, appears stated age Head: Normocephalic, without obvious abnormality, atraumatic Eyes: PERRL, conjunctiva/corneas clear Ears: Normal TM's and external ear canals, and KAIBAB, wears hearing aids Nose: Nares normal Throat: Lips, mucosa, and tongue normal; Posterior pharynx normal Neck: Supple, symmetrical, no adenopathy, thyroid: not enlarged, symmetric, no tenderness/m ass/nodules, no carotid bruit or JVD Lungs: Clear to auscultation bilaterally, respirations unlabored Heart: Regular rate and rhythm, S1, S2 normal, no murmur, rub or gallop : Normal external female genitalia. No external lesions, urinary meatus normal,introitus normal. Vaginal pink,moist, mildly atrophic.Moderate amount blood noted in vaginal vault. Cervix round and nulliparous, no lesions noted. Bimanual exam reveals no uterine or adenax al masses. No Cervical motion tenderness. Alessandro Davenport RN in room for residential air sealing technician. Extremities: Extremities normal, atraumatic, no cyanosis or edema Skin: Skin color, texture, turgor normal Neurologic: Nonfocal. Alert and oriented. Results for orders placed in visit on 03/23/14 EXTERNAL LAB: PAP SMEAR Component Value Range Pap Smear, External Value: No evidence of intraepithelial lesion or malignancy Assessment and Plans: Lucie was seen today for follow-up and vaginal bleeding. Diagnoses and associated orders for this visit: Prediabetes Discussed her prediabetes and risk for progressing to full blown diabetes. Will start metfo rmin 500 mg daily with breakfast. Med profile discussed. Recheck 3 months. Educational mater ials provided. Will set her up for prediabetes classes. Recommended weight loss and exercise . She was also seen a conjunction by our manager golf. I did review her note and discus sed patient's progress with her [id number]. - Comprehensive Metabolic Panel; Future - Hemoglobin A1C; Future Postmenopausal vaginal bleeding Will obtain TSH and Pelvic US. Discussed will likely need Endometrial biopsy. Follow-up fo r worsening symptoms or hemorrhaging. - TSH; Future - US Pelvis W Transvaginal; Future Vitamin d deficiency - Vitamin D, 25-Hydroxy; Future Hyperlipidemia -. Take meds as directed -. Discussed regular cardiovascular exercise and maintaining healthy wt. -. Avoid high fat/cholesterol diet -. Lipid panel and LFT's reviewed. Hypertension, controlled -. Blood pressure stable and goals discussed -. Continue current medications - Advised low salt diet - Advised regular cardiovascular exercise -. Labs reviewed and discussed with the patient - Follow up as needed if blood pressures are above goal Other Orders - metFORMIN (GLUCOPHAGE) 500 mg tablet; Take 1 tablet by mouth daily (with breakfast). Care instructions and warning signs were discussed. Medications per orders. Side effects discussed. Labs and investigations per orders. Recheck 3 months 2 recheck prediabetes, Sooner prn. This note was dictated using [employer] voice recognition software. Every attempt was made for accuracy, but grammatical errors may exist. If there are questions regarding this, please co ntact provider. Charis ocumented in this encounter Plan of Treatment +--------+---------+ + + + | Date | Type | Specialty | Care Team | Description | +--------+---------+ + + + | 11/23/ | Office | Family Medicine | Ivy Sun | | | 2020 | Visit | | [address] | | | | | | [place] | | | | | | [address] | | | | | | | | +--------+---------+ + + + + +------+--------+ + + | Name | Type | Priori | Associated Diagnoses | Order Schedule | | | | ty | | | + +------+--------+ + + | Vitamin D, | Lab | Routin | Vitamin D | 1 Occurrences | | 25-Hydroxy | | e | deficiency | starting 04/07/2014 | | | | | | until 04/07/2015 | + +------+--------+ + + | Comprehensive | Lab | Routin | Prediabetes | Expected: 07/12/2014 | | Metabolic Panel | | e | | (Approximate), | | | | | | Expires: 04/07/2015 | + +------+--------+ + + | Hemoglobin A1C | Lab | Routin | Prediabetes | Expected: 07/12/2014 | | | | e | | (Approximate), | | | | | | Expires: 04/07/2015 | + +------+--------+ + + | TSH | Lab | Routin | Postmenopausal | 1 Occurrences | | | | e | vaginal bleeding | starting 04/07/2014 | | | | | | until 04/07/2015 | + +------+--------+ + + + + +--------+ + + | Name | Type | Priori | Associated Diagnoses | Order Schedule | | | | ty | | | + + +--------+ + + | Ambulatory referral | Outpatient | Routin | Prediabetes | Ordered: 04/07/2014 | | to Diabetic | Referral | e | | | | Education | | | | | + + +--------+ + + documented as of this encounter Results US Pelvis W Transvaginal (04/12/2014 10:22 AM PDT) + + | Specimen | + + | | + + + + + | Narrative | Performed At | + + + | US PELVIS W TRANSVAGINAL 04/12/2014 10:22 AM HISTORY: VAGINAL | MISCELANIOUS | | BLEEDING POSTMENOPAUSAL. COMPARISON: None. PROTOCOL: Pyle | LAB | | scale and Doppler images of the pelvis with transabdominal and | | | transvaginal imaging. FINDINGS: The uterus has a normal | | | appearance with no focal lesions. It measures 6.0 x 4.3 x 2.6 cm. | | | Endometrium is 14 mm, which is abnormally thickened given the age of | | | the patient. The ovaries are not well seen. The cul-de-sac is | | | normal. IMPRESSION - ABNORMALLY THICKENED ENDOMETRIUM AT 14 MM | | | GIVEN THE AGE OF THE PATIENT. ENDOMETRIAL CANCER CANNOT BE EXCLUDED. | | | IF CLINICALLY INDICATED, BIOPSY CAN BE PERFORMED FOR FURTHER | | | EVALUATION. Dictated and Signed by: Markie Baig MD | | | Electronically signed: 04/12/2014 10:28 AM | | + + + + + | Procedure Note | + + | Yohannes, Rad Results In - 04/12/2014 10:31 AM PDT US PELVIS W TRANSVAGINAL 04/12/2014 | | 10:22 AM HISTORY: VAGINAL BLEEDING POSTMENOPAUSAL.COMPARISON: None.PROTOCOL: Pyle scale | | and Doppler images of the pelvis with transabdominal andtransvaginal | | imaging.FINDINGS:The uterus has a normal appearance with no focal lesions. It measures | | 6.0 x 4.3x 2.6 cm. Endometrium is 14 mm, which is abnormally thickened given the age | | ofthe patient.The ovaries are not well seen. The cul-de-sac is normal.IMPRESSION | | -ABNORMALLY THICKENED ENDOMETRIUM AT 14 MM GIVEN THE AGE OF THE PATIENT.ENDOMETRIAL | | CANCER CANNOT BE EXCLUDED. IF CLINICALLY INDICATED, BIOPSY CAN BEPERFORMED FOR FURTHER | | EVALUATION.Dictated and Signed by: Markie Baig MD Electronically signed: 04/12/2014 | | 10:28 AM | |The uterus has a normal appearance with no focal lesions. It measures 6.0 x 4.3 | |x 2.6 cm. Endometrium is 14 mm, which is abnormally thickened given the age of | |the patient. | | | |The ovaries are not well seen. | | | |The cul-de-sac is normal. | | | |IMPRESSION - | |ABNORMALLY THICKENED ENDOMETRIUM AT 14 MM GIVEN THE AGE OF THE PATIENT. | |ENDOMETRIAL CANCER CANNOT BE EXCLUDED. IF CLINICALLY INDICATED, BIOPSY CAN BE | |PERFORMED FOR FURTHER EVALUATION. | | | |Dictated and Signed by: Markie Baig MD | | Electronically signed: 04/12/2014 10:28 AM | + + + +---------+ + + | Performing | Address | City[facility] | Phone Number | | Organization | | | | + +---------+ + + | MISCELLANEOUS LAB | | | [phone] | + +---------+ + + | MISCELANIOUS LAB | | | [phone] | + +---------+ + + documented in this encounter Visit Diagnoses + + | Diagnosis | + + | Prediabetes - Primary Other abnormal glucose | + + | Postmenopausal vaginal bleeding Postmenopausal bleeding | + + | Vitamin D deficiency Unspecified vitamin D deficiency | + + | Hyperlipidemia Other and unspecified hyperlipidemia | + + | HYPERTENSION, CONTROLLED Essential hypertension, benign | + + documented in this encounter
--- OUTSIDE RECORDS SUMMARY | ~2019-10-23 | XMS | Encounter Summary ---
Demographics + + + | Address | [address] | | | [place] [address] | + + + | Home Phone [...] | Author | [facility] | | | and Rainerana | + + + | Organization | [facility] | | | and Rainerana [...] [place], [place] | | | | | [address] | | + + + + + | Jelena [address] | ECON | [place] | | | | | [address] | | + + + + + Care Team Providers + +------+ + | Care Cake Maker Name | Role | Phone | + +------+ + | Ivy Sun | PCP | | + +------+ + Encounter Details +--------+ + + + + | Date | Type | Department | Care Team | Description | +--------+ + + + + | 03/23/ | Abstract | [place] [facility] | Dino Ivy | | | 2013 | | Conversion Location | JUSTYN Keating [address] | | | | | [phone] | [place] | | | | | | [address] | | | | | | | [...] [place] | | | | | | [address] | | | | | | | | +--------+---------+ + + + documented as of this encounter Procedures + +--------+ + + + | Procedure Name | Priori | Date/Time | Associated Diagnosis | Comments | | | ty | | | | + +--------+ + + + | EXTERNAL LAB: PAP | Routin | 05/05/2013 | | Results for this | | SMEAR | e | 2:14 PM | | procedure are in the | | | | PDT | | results section. | + +--------+ + + + documented in this encounter Results External Lab: PAP Smear (05/05/2013 2:14 PM PDT) + + + + + + | Component | Value | Ref Range | Performed | Pathologist | | | | | At | Signature | + + + + + + | Pap Smear, | No evidence of | | | | | External | intraepithelial lesion | | | | | | or malignancy | | | | + + + + + + documented in this encounter Visit Diagnoses Not on filedocumented in this encounter"
--- OUTSIDE RECORDS SUMMARY | ~2019-10-23 | XMS | Encounter Summary ---
Demographics + + + | Address | [address] | | | [place] [address] | + + + | Home Phone [...] | [facility] | | | and Rainerana | + + + | Organization | [facility] | | | and Rainerana [...] [place], [place] | | | | | [address] | | + + + + + | Jelena [address] | ECON | [place] | | | | | [address] | | + + + + + Care Team Providers + +------+ + | Care Mental Health Advanced Practice Nurse Name | Role | Phone | [...] Aortic root | Logan | [address] | | | | | enlargement | MD Missael | [place], | | | | | (HCC) | [address] | [place] | | | | | Procedures | St [place] | [address] | | | | | ECHO | [place], [place] | Phone: | | | | | Complete | [address] | [phone] | | | | | | Phone: | Fax: | | | | | | [phone] | [phone] | | | | | | Fax: | | | | | | | [phone] | | +--------+--------+ + + + + [...] | enlargement (HCC) | | | | [address] [place], | [address] [place] | (Primary Dx); | | | | [place] [address] | [place] [address] | Hyperlipidemia; | | | | [phone] | [phone] | Hypertension | | | | | [...] [place] | | | | | | [address] | | | | | | | | +--------+---------+ + + + documented as of this encounter Results ECHO Complete (12/18/2013 1:43 PM PST) + + | Specimen | + + | | + + + + + | Narrative | Performed At | + + + | [facility] | [place] | | Department [address] [place] [address] | [facility] | | [ rep [address]] [ rep [address] [facility] | | [facility]] Signed | - IMAGING | | | | | Patient Name: LUCIE CARRERA Physician: | | | SANDRA.01 : 1950 Age: 63 Sex: F Unit #: [id number] | | | Exam Date: 12/18/13 Location: [facility] | | | Report #: [id number] Page: | | | %(RAD)RES..mtdd.print.filter("pg") of %(RAD) | | | RES..mtdd.print.filter("tpg") | | | | | | Accession Number: [id number] | | | E C H O C A R D I O G R A P H Y R E P O R T | | | HEIGHT: 67" WEIGHT: 257# | | | STOCK RANCH SUPERVISOR: JAH REFERRING DR: LUCIANO JEAN-BAPTISTE DR: | [...] Transcribed Date/Time: 12/18/2013 14:38 | | | Cylinder Grinder: <<Signature on File>> | | | S | | | Missael Wolf MD12/28/13 1528 <Electronically signed by S S. | | | Luciano JEFFRIES> S Missael Wolf MD 12/18/13 1343 | | | Cylinder Grinder: AVIAchapincito Ttncgqjhdvdth45/21/14 [address]38 S | | | Missael Wolf MD | | + + + + + + + + | Performing | Address | City/State/Zipcode | Phone Number | | Organization | | | | + + + + + | [facility] | [address] | [place] | [phone] | | [facility] | | [address] | | | - IMAGING | | [...]
--- OUTSIDE RECORDS SUMMARY | ~2019-10-23 | XMS | Encounter Summary ---
Demographics + + + | Address | [address] | | | [place] [address] | + + + | Home Phone | | + + + | Preferred Language | Unknown | + + + | Marital Status | Single | + + + | Moravian Affiliation | 1077 | + + + | Race | Unknown | + + + | Ethnic Group | Unknown | + + + Author + + + | Author | [facility] | | | and Rainerana | + + + | Organization | [facility] | | [...] [place], [place] | | | | | [address] | | + + + + + | J[address]ena [address] | ECON | [place] | | | | | [address] | | + + + + + Care Team Providers + +------+ + | Care White Shoe Ragger Name | Role | Phone | + [...] Description | +--------+--------+ + + + | 07/23/ | Refill | [facility] | Ivy Sun | Medication Refill | | 2011 | | [facility] [place] | Rishabh, JUSTYN [address] | | | | | [address] | [place] | | | | | [place] | [address] | | | | | [address] | | | | | | [phone] | | | +--------+--------+ + + + Social History + +-------+ [...] | | | | | | [place] | | | | | | [id number] | | | | | | | | +--------+---------+ + + + documented as of this encounter Visit Diagnoses + + | Diagnosis | + + | Hypertension Unspecified essential hypertension | + + | Insomnia Insomnia, unspecified | + + | Hyperlipidemia Other and unspecified hyperlipidemia | + + documented in this encounter"
--- OUTSIDE RECORDS SUMMARY | ~2019-10-23 | XMS | Encounter Summary ---
Demographics + + + | Address | [address] | | | [place] [address] | + + + | Home Phone | | + + + | Preferred Language | Unknown | + + + | Marital Status | Single | + + + | Caodaism Affiliation | 1077 | + + + | Race | Unknown | + + + | Ethnic Group | Unknown | + + + Author + + + | Author | [facility] | | | and Rainerana | + + + | Organization | [facility] | | | and [...] [place], [place] | | | | | [address] | | + + + + + | Jelena Hill | ECON | [place] | | | | | [address] | | + + + + + Care Team Providers + +------+ + | Care Cardiology Teacher Name | Role | Phone | + +------+ + | Ivy Sun | PCP | | + +------+ + Encounter Details +--------+ + + + + | Date | Type | Department | Care Team | Description | +--------+ + + + + | 05/05/ | Hospital | [facility] | Ivy Sun | Dysuria | | 2013 | Encounter | [facility] CTR LAB[facility] | L, [facility] [address] | | | | | [address] [place] | [address] [place], [place] | | | | | [place], [place] | [address] | | | | | [address] | | | | | | [phone] | | | +--------+ + + + [...] tablet by | 90 | 0 | 04/17/20 | | | (PRINIVIL, ZESTRIL) | mouth every morning. | tablet | | 13 | 3 | | 20 mg tablet | | | | | | + + + +---------+ + + | paroxetine (PAXIL) | Take 1 tablet by | 90 | 1 | 04/17/20 | | | 40 MG tablet | mouth Daily. | tablet | | 13 | 3 | + + + +---------+ + + | simvastatin | Take 1 tablet by | 90 | 1 | 12/18/19 | | | (ZOCOR) 10 mg | mouth nightly. | tablet | | 13 | 3 | | tabletIndications: | | | | | | | Hyperlipidemia | | | | | | + + + +---------+ + + | zolpidem (AMBIEN) | Take 0.5 tablets by | 45 | 0 | 12/23/19 | | | 10 mg | mouth nightly as | tablet | | 13 | 3 | | tabletIndications: | needed [...] [place] | | | | | | [address] | | | | | | | | +--------+---------+ + + + documented as of this encounter Procedures + +--------+ + + + | Procedure Name | Priori | Date/Time | Associated Diagnosis | Comments | | | ty | | | | + +--------+ + + + | CULTURE, URINE, | Routin | 05/05/2013 | Dysuria | Results for this | | SMEAR | e | 2:30 PM | | procedure are in the | | | | PDT | | results section. | + +--------+ + + + documented in this encounter Results Culture, Urine, Smear (05/05/2013 2:30 PM PDT) + + + + + + | Component | Value | Ref Range | Performed | Pathologist | | | | | At | Signature | + + + + + + | Gram Stain | GRAM STAIN:RARE | | [facility] | | | Result | WBC/HPFRARE EPITHELIAL | | [facility] | | | | CELLS/HPFRARE RBCRARE | | MEDICAL | | | | GRAM POS COCCI | | CENTER - | | | |RARE GRAM POS COCCI | | LABORATORY | | + + + + + + | CULTURE | Lissette (Reportable) | /mL | [facility] | | | BACTERIA | 25-50,000 PERIURETHRAL | | [facility] | | | URINE | [facility] | | MEDICAL | | | | | | CENTER - | | | | | | LABORATORY | | + + + + + + + + | Specimen | + + | Urine specimen | | (specimen) - Urine, | | Void | + + + + + | Narrative | Performed At | + + + | YELLOW CLEAR | [facility] | | | [facility] | | | - LABORATORY | + + + + + + + + | Performing | Address | City/State/Zipcode | Phone Number | | Organization | | | | + + + + + | [facility] | [address] | [place] | [phone] | | [facility] | | [address] | | | - LABORATORY | | | | + + + + + | [facility] | [address] | [place], [place] | | | [facility] | | [address] | | | - LABORATORY | | | | + + + + + documented in this encounter Visit Diagnoses + + | Diagnosis | + + | Dysuria | + + documented in this encounter"
--- OUTSIDE RECORDS SUMMARY | ~2019-10-23 | XMS | Encounter Summary ---
Demographics + + + | Address | [address] | | | [place] [address] | + + + | Home Phone | | + + + | Preferred Language | Unknown | + + + | Marital Status | Single | + + + | Scientology Affiliation | 1077 | + + + | Race | Unknown | + + + | Ethnic Group | Unknown | + + + Author + + + | Author | [facility] | | | and Rainerana | + + + | Organization | [facility] | | | and Rainerana [...] [place], [place] | | | | | [address] | | + + + + + | Jelena Hill | ECON | [place] | | | | | [address] | | + + + + + Care Team Providers + +------+ + | Care Tape Transferrer Name | Role | Phone | + [...] Medicine | Restless | Reymundo Allen | [place] [address] | | | Required | | legs | [address] | [place] | | | | | syndrome | [place] | [place], | | | | | [place] | [facility] | [place] [address] | | | | | (obstructive | [facility], [place] | Phone: | | | | | sleep | [address] | [phone] | | | | | apnea) | Phone: | Fax: | | | | | Procedures | [phone] | [phone] | | | | | [place] POLYSOM | Fax: | | | | | | 6/>YRS SLEEP | [phone] | | | | | | W/CPAP 4/> | | | | | | | ADDL ANNA | | | | | | | ATTND [place] | | | | | | | [...] + + | 01/02/ | Office | [facility] | Reymundo Guillory | [place] (obstructive | | 2018 | Visit | SLEEP DISORDER [address] | [address] | sleep apnea) | | | | [address] [place] | [place] [address] [place] | (Primary Dx); | | | | [place] [address] | [place] [address] | Restless legs | | | | [phone] | [phone] | syndrome; Low | | | | [...] breaths does not meet criteria for an video game producer ea or hypopnea. Sleep Architecture: Lights out [...] obstructive apneas, 0 mixed apneas, 1 central video game producer eas, 423 hypopneas, and 69 Respiratory Effort [...] [place] | | | | | | [address] | | | | | | | | +--------+---------+ + + + + + +--------+ + + | Name | Type | Priori | Associated Diagnoses | Order Schedule | | | | ty | | | + + +--------+ + + | * [facility] - | Outpatient | [...]
--- OUTSIDE RECORDS SUMMARY | ~2019-10-23 | XMS | Encounter Summary ---
Demographics + + + | Address | [address] | | | [place] [address] | + + + | Home Phone | | + + + | Preferred Language | Unknown | + + + | Marital Status | Single | + + + | Restorationism Affiliation | 1077 | + + + | Race | Unknown | + + + | Ethnic Group | Unknown | + + + Author + + + | Author | [facility] | | | and Rainerana | + + + | Organization | [facility] | | | and [...] [place], [place] | | | | | [address] | | + + + + + | Jelena Hill | ECON | [place] | | | | | [address] | | + + + + + Care Team Providers + +------+ + | Care Marketing Operations Specialist Name | Role | Phone | + +------+ + | Ivy Sun | PCP | | + +------+ + Reason for Visit Auth/Cert +--------+--------+ + + + + | Status | Reason | Specialty | Diagnoses / | Referred By | Referred To | | | | | Procedures | Contact | Contact | +--------+--------+ + + + + | Closed | | | Diagnoses | | | | | | | | | | | | | | Postmenopaus | | | | | | | al bleeding | | | | | | | | | | | | | | Postmenopaus | | | | | | | al bleeding | | | | | | | Procedures | | | | | | | MA | | | | | | | HYSTEROSCOPY | | | | | | | ,W/ENDO BX | | | | | | | DILATION AND | | | | | | | CURETTAGE/ | | | | | | | HYSTEROSCOPY | | | +--------+--------+ + + + + Encounter Details +--------+ + + + + | Date | Type | Department | Care Team | Description | +--------+ + + + + | 06/03/ | Anesthesia | [facility] | Federico Yo MD | | | 2013 | Event | [facility] | [address] | | | | | [address] | [place], [place] | | | | | [place], [place] | [address] | | | | | [address] | | | | | | [phone] | | | +--------+ + + + + Anesthesia Record + + + + + | Procedure Name | Responsible | Anesthesia Start | Anesthesia Stop Time | | | Anesthesiologist | Time | | + + + + + | HYSTEROSCOPY | | 06/03/14741 | 06/03/14815 | | FRACTIONAL D&C (N/A | | | | | ) | | | | + + + + + +----+---+ + + | Da | T | Event | Comment | | te | i | | | | | m | | | | | e | | | +----+---+ + + | 08 | 0 | | | | /0 | 7 | | | | 7/ | 1 | | | | 20 | 2 | | | | 14 | | | | +----+---+ + + | | 0 | An Checkout | Pre-use anesthesia machine/equipment checkout. | | | 7 | | | | | 4 | | | | | 2 | | | +----+---+ + + | | 0 | An Start | Reassessment prior to anesthesia induction/procedure. | | | 7 | | | | | 4 | | | | | 2 | | | +----+---+ + + | | 0 | AN | Per surgeon request | | | 7 | Antibiotic | | | | 4 | declined | | | | 7 | | | +----+---+ + + | | 0 | Preoxygenat | | | | 7 | ed | | | | 4 | | | | | 7 | | | +----+---+ + + | | 0 | An | | | | 7 | Induction | | | | 4 | | | | | 9 | | | +----+---+ + + | | 0 | An | | | | 7 | Intubation | | | | 5 | | | | | 1 | | | +----+---+ + + | | 0 | Breathing | | | | 8 | Spontaneous | | | | 0 | ly | | | | 2 | | | +----+---+ + + | | 0 | An Stop | Patient handed off to recovery nurse. | | | 1 | | | | | 6 | | | +----+---+ + + +------+ | Meds | +------+ + +---------+ | Name | Total | + +---------+ | fentaNYL | 100 mcg | + +---------+ | propofol | 160 mg | + +---------+ | lidocaine 2% | 100 mg | + +---------+ | ondansetron | 4 mg | + +---------+ | lactated ringers (LR) infusion | 900 mL | + +---------+ + + | Name | + + | N2O Flow Rate (L/Min) | + + | O2 Flow Rate (L/Min) | + + | Insp O2 | + + | Exp SEV | + + | Air Flow Rate (L/Min) | + + + + | No blood administrations on file. | + + +--------+ + + + | Type | Details | Placement | Removal | +--------+ + + + | [READ | 06/03/14; 721; Hematology; | 06/03/14721 by | 06/03/14 1005 by | | ONLY] | healing within expectations; | Brianne Figueroa, | Erin Moreno RN | | | 06/03/14; 1005 | RN | | | Periph | | | | | eral | | | | | IV - | | | | | Single | | | | | Lumen | | | | | | | | | +--------+ + + + | Airway | Placement Date: 06/03/14; | 06/03/14750 by | 06/03/14813 by | | | Placement Time: 750; Mask | Federico Yo MD | Hiren Rain RN | | | Ventilation: EZ; Airway Type: | | | | | laryngeal mask, cuffed, | | | | | non-disposable; Size: 4; Tube | | | | | Reference Point: secure and | | | | | patent; Trauma: none; Placement | | | | | Check: verified by capnography; | | | | | Placed By: Anesthesiologist; | | | | | Removal Date: 06/03/14; Removal | | | | | Time: 813 | | | +--------+ + + + | Read | 06/03/14; 819; vagina; 11/03/18; | 06/03/14819 by | 11/03/18 1112 by | | only - | 1112 | Bo Gomez RN | Kristen Hernandes RN | | | | | | | Incisi | | | | | on | | | | +--------+ + + + documented in this encounter Social History + + + +--------+------+ | [...] 11/23/ | Office | Family Medicine | Ayad Sunina | | | 2019 | Visit | | [place] [address] | | | | | | [place] | | | | | | [address] | | | | | | | | +--------+---------+ + + + documented as of this encounter Visit Diagnoses Not on filedocumented in this encounter Administered Medications + +--------+ +---------+------+------+ | Medication Order | MAR | Action | Dose | Rate | Site | | | Action | Date | | | | + +--------+ +---------+------+------+ | fentaNYL injection | Given | 06/03/20 | 100 mcg | | | | Intravenous, PRN, Pain, Starting | | 14 7:47 | | | | | Irais 06/03/14 at 0747, Anesthesia | | AM PDT | | | | | Intra-op | | | | | | + +--------+ +---------+------+------+ +---+---+ | | | +---+---+ + +---------+ +----+---+---+ | lactated ringers (LR) infusion | New Bag | 06/03/20 | mL | | | | at 100 mL/hr, Intravenous, | | 14 7:15 | | | | | CONTINUOUS, Starting Irais 06/03/14 | | AM PDT | | | | | at 0715, Pre-op | | | | | | + +---------+ +----+---+---+ +---+---+ | | | +---+---+ + +-------+ +--------+---+---+ | lidocaine (PF) 2% injection | Given | 06/03/20 | 100 mg | | | | Intravenous, PRN, Starting Irais | | 14 7:49 | | | | | 06/03/14 at 0749, Anesthesia | | AM PDT | | | | | Intra-op | | | | | | + +-------+ +--------+---+---+ +---+---+ | | | +---+---+ + +-------+ +------+---+---+ | ondansetron (ZOFRAN) injection | Given | 06/03/20 | 4 mg | | | | Intravenous, PRN, Nausea, | | 14 8:00 | | | | | Vomiting, Starting Irais 06/03/14 at | | AM PDT | | | | | 0800, Anesthesia Intra-op | | | | | | + +-------+ +------+---+---+ +---+---+ | | | +---+---+ + +-------+ +--------+---+---+ | propofol (DIPRIVAN) injection | Given | 06/03/20 | 160 mg | | | | Intravenous, PRN, Starting Irais | | 14 7:49 | | | | | 06/03/14 at 0749, Anesthesia | | AM PDT | | | | | Intra-op | | | | | | + +-------+ +--------+---+---+ +---+---+ | | | +---+---+ documented in this encounter"
--- OUTSIDE RECORDS SUMMARY | ~2019-10-23 | XMS | Encounter Summary ---
Demographics + + + | Address | [address] | | | [place] [address] | + + + | Home Phone [...] + + + | Author | [facility] | | | and Rainerana | + + + | Organization | [facility] | | | and Rainerana | [...] [place], [place] | | | | | [address] | | + + + + + | Jelena Hill | ECON | [place] | | | | | [address] | | + + + + + Care Team Providers + +------+ + | Care Test Lab Technician Name | Role | Phone | + +------+ + | Ivy Sun | PCP | | + +------+ + Reason for Visit + + + | Reason | Comments | + + + | Urinary Tract | | | Infection | | + + + Encounter Details +--------+ + + + + | Date | Type | Department | Care Team | Description | +--------+ + + + + | 08/30/ | Telephone | [facility] | Ivy Sun | Urinary Tract | | 2015 | | MEDICINE [place] | [place] [address] | Infection | | | | [address] | [place] | | | | | [place] | [address] | | | | | [address] | | | | | | [phone] | | | +--------+ + + + [...] + | Diagnosis | + + | Acute cystitis without hematuria - Primary Acute cystitis | + + documented in this encounter"
--- OUTSIDE RECORDS SUMMARY | ~2019-10-23 | XMS | Encounter Summary ---
Demographics + + + | Address | [address] | | | [place] [address] | + + + | Home Phone | | + + + | Preferred Language | Unknown | + + + | Marital Status | Single | + + + | Moravian Affiliation | 1077 | + + + | Race | Unknown | + + + | Ethnic Group | Unknown | + + + Author + + + | Author | [facility] | | | and Rainerana | + + + | Organization | [facility] | | | and [...] [place], [place] | | | | | [address] | | + + + + + | Jelena Hill | ECON | [place] | | | | | [address] | | + + + + + Care Team Providers + +------+ + | Care Hat Body Sorter Name | Role | Phone | + [...] Description | +--------+--------+ + + + | 10/13/ | Refill | [facility] | Ivy Sun | Medication Refill | | 2019 | | MEDICINE [place] | Rishabh, [place] [address] | | | | | [address] | [address] [place] | | | | | [place] | [address] | | | | | [address] | | | | | | [phone] | | | +--------+--------+ + + + [...] [place] | | | | | | [address] | | | | | | | | +--------+---------+ + + + documented as of this encounter Visit Diagnoses Not on filedocumented in this encounter"
--- OUTSIDE RECORDS SUMMARY | ~2019-10-23 | XMS | Encounter Summary ---
Demographics + + + | Address | [address] | | | [place] [address] | + + + | Home Phone | | + + + | Preferred Language | Unknown | + + + | Marital Status | Single | + + + | Adventism Affiliation | 1077 | + + + | Race | Unknown | + + + | Ethnic Group | Unknown | + + + Author + + + | Author | [facility] | | | and Rainerana | + + + | Organization | [facility] | | | and [...] [place], [place] | | | | | [address] | | + + + + + | Jelena Hill | ECON | [place] | | | | | [address] | | + + + + + Care Team Providers + +------+ + | Care Assessment Nurse Practitioner Name | Role | Phone | + +------+ + | Ivy Sun | PCP | | + +------+ + Encounter Details +--------+ + + + + | Date | Type | Department | Care Team | Description | +--------+ + + + + | 08/28/ | Hospital | [facility] | Ivy Sun | Essential | | 2016 | Encounter | [facility] | L, HOSPITAL DIRECTOR [address] | hypertension with | | | | [address] [place] | [address] [place], [place] | goal blood pressure | | | | [place], [place] | [address] | less than 130/80; | | | | [address] | | Hyperlipidemia, | | | | [phone] | | unspecified | | | | | | hyperlipidemia type; | | | | | | Prediabetes; | | | | | | Tachycardia | +--------+ + + + + Social [...] [place] | | | | | | [address] | | | | | | | | +--------+---------+ + + + documented as of this encounter Procedures + +--------+ + + + | Procedure Name | Priori | Date/Time | Associated Diagnosis | Comments | | | ty | | | | + +--------+ + + + | URINALYSIS WITH | Routin | 08/28/2016 | Essential | Results for this | | MICROSCOPIC IF | e | 11:45 AM | hypertension with | procedure are in the | | INDICATED | | PDT | goal blood pressure | results section. | | | | | less than 130/80 | | + +--------+ + + + | MICROALBUMIN/CREATIN | Routin | 08/28/2016 | Essential | Results for this | | INE RATIO, URINE | e | 11:45 AM | hypertension with | procedure are in the | | TEST | | PDT | goal blood pressure | results section. | | | | | less than 130/80 | | + +--------+ + + + | LIPID PANEL | Routin | 08/28/2016 | Essential | Results for this | | | e | 8:29 AM | hypertension with | procedure are in the | | | | PDT | goal blood pressure | results section. | | | | | less than 130/80 | | + +--------+ + + + | VITAMIN B-12 | Routin | 08/28/2016 | Tachycardia | Results for this | | | e | 8:29 AM | | procedure are in the | | | | PDT | | results section. | + +--------+ + + + | CBC WITH | Routin | 08/28/2016 | Tachycardia | Results for this | | DIFFERENTIAL | e | 8:29 AM | | procedure are in the | | | | PDT | | results section. | + +--------+ + + + | TSH | Routin | 08/28/2016 | Tachycardia | Results for this | | | e | 8:29 AM | | procedure are in the | | | | PDT | | results section. | + +--------+ + + + | T4, FREE | Routin | 08/28/2016 | Tachycardia | Results for this | | | e | 8:29 AM | | procedure are in the | | | | PDT | | results section. | + +--------+ + + + | HEMOGLOBIN A1C | Routin | 08/28/2016 | Prediabetes | Results for this | | | e | 8:29 AM | | procedure are in the | | | | PDT | | results section. | + +--------+ + + + | COMPREHENSIVE | Routin | 08/28/2016 | Hyperlipidemia, | Results for this | | METABOLIC PANEL | e | 8:29 AM | unspecified | procedure are in the | | | | PDT | hyperlipidemia type | results section. | | | | | Essential | | | | | | hypertension with | | | | | | goal blood pressure | | | | | | less than 130/80 | | + +--------+ + + + documented in this encounter Results Microalbumin/Creatinine Ratio, Urine (08/28/2016 11:45 AM PDT) + + + + + + | Component | Value | Ref Range | Performed | Pathologist | | | | | At | Signature | + + + + + + | Microalbumi | 12.2 (H)Comment: Notice: | <1.8 mg/dL | [facility] | | | n, Urine, | New unit (mg/dl) and | | [facility] | | | Random | reference range as of | | MEDICAL | | | | January 02, 2014. | | CENTER - | | | | | | LABORATORY | | + + + + + + | Creatinine, | 345 | mg/dL | [facility] | | | Urine, | | | [facility] | | | Random | | | MEDICAL | | | | | | CENTER - | | | | | | LABORATORY | | + + + + + + | Microalbumi | 35 (H) | <30 mg/g | [facility] | | [...] + | [facility] | [address] | [place] | [phone] | | [facility] | | [address] | | | - LABORATORY | | | | + + + + + Urinalysis with Microscopic if Indicated (08/28/2016 11:45 AM PDT) + + + + + + | Component | Value | Ref Range | Performed | Pathologist | | | | | At | Signature | + + + + + + | Color | Agatha (A) | Light Yellow, | [facility] | | | | | Yellow, Straw | [facility] | | | | | | MEDICAL | | | | | | CENTER - | | | | | | LABORATORY | | + + + + + + | Clarity | Cloudy (A) | Clear | [facility] | | [...] + + + + | Specific | 1.028 | 1.001 - 1.030 | [facility] | | | [place] | | | [facility] | | | | | | MEDICAL | | | | | | CENTER - | | | | | | LABORATORY | | + + + + + + | Protein, | 100 mg/dL (A) | Negative | [facility] | | [...] + + + + | Ketones, | Trace (A) | Negative | [facility] [...] | | | Esterase, | | | [facility] | | | Urine | | | MEDICAL | | | | | | CENTER - | | | | | | LABORATORY | | + + + + + + | Urobilinoge | Negative | 0.2 mg/dL, 1.0 | [facility] | | | n, Urine | | mg/dL, Negative | [facility] | | | | | | MEDICAL | | | | | | CENTER - | | | | | | LABORATORY | | + + + + + + | WBC UA | 25-50 (A) | 0 - 2 /HPF | [facility] | | | | | | [facility] | | | | | | MEDICAL | | | | | | CENTER - | | | | | | LABORATORY | | + + + + + + | RBC UA | 15-25 (A) | 0 - 2 /HPF | [facility] | | | | | | [facility] | | | | | | MEDICAL | | | | | | CENTER - | | | | | | LABORATORY | | + + + + + + | SQUAMOUS | >100 (A) | 0 - 2 /LPF | [facility] | | | EPITHELIAL | | | [facility] | | | UA | | | MEDICAL | | | | | | CENTER - | | | | | | LABORATORY | | + + + + + + | BACTERIA UA | 1+ (A) | Negative /HPF | [facility] | | | | | | [facility] | | | | | | MEDICAL | | | | | | CENTER - | | | | | | LABORATORY | | + + + + + + | MUCUS UA | Present (A) | Negative /LPF | [facility] | | | | | | [facility] | | | | | | MEDICAL | | | | | | CENTER - | | | | | | LABORATORY | | + + + + + + | HYALINE | 10-15 (A) | 0 - 2 /LPF | [facility] | | | [facility] | | | [facility] | | [...] ST. | [address] | [place] | [phone] | | [facility] | | [address] | | | - LABORATORY | | | | + + + + + T4, Free (08/28/2016 8:29 AM PDT) + +-------+ + + + | Component | Value | Ref Range | Performed | Pathologist | | | | | At | Signature | + +-------+ + + + | FT4 | 1.0 | 0.6 - 1.1 ng/dL | [facility] | | | | | [...] | + + + + + | [facility] | [address] | [place] | [phone] | | [facility] | | [address] | | | - LABORATORY | | | | + + + + + Vitamin B-12 (08/28/2016 8:29 AM PDT) + + + + + + | Component | Value | Ref Range | Performed | Pathologist | | | | | At | Signature | + + + + + + | VITAMIN | 221Comment: DEFICIENT: | 180 - 914 pg/mL | [facility] | | | B-12 | <145 | | [facility] | | | | pg/mLINDETERMINATE: | | MEDICAL | | | | 145-180 pg/mL | | CENTER - | | | [...] [address] | [place] | [phone] | | [facility] | | [address] | | | - LABORATORY | | | | + + + + + TSH (08/28/2016 8:29 AM PDT) + + + + + + | Component | Value | Ref Range | Performed | Pathologist | | | | | At | Signature | + + + + + + | TSH | 2.47Comment: All TSH | 0.34 - 5.60 | [facility] | | | | samples are screened | uIU/mL | [facility] | | | | using a 2nd Generation | | MEDICAL | | | | test, and are reflexed | | CENTER - | | | | to a 3rd Generation test | | LABORATORY | | | | if indicated. | | | | + + + + + + + + | Specimen | + + | Blood | + + + + + + + | Performing | Address | City/State/Zipcode | Phone Number | | Organization | | | | + + + + + | [facility] | [address] | [place] | [phone] | | [facility] | | [address] | | | - LABORATORY | | | | + + + + + CBC with Differential (08/28/2016 8:29 AM PDT) + + + + + + | Component | Value | Ref Range | Performed | Pathologist | | | | | At | Signature | + + + + + + | WBC | 8.5 | 4.0 - 11.0 K/uL | [facility] | | | | [facility] | | | | | | MEDICAL | | | | | | CENTER - | | | | | | LABORATORY | | + + + + + + | RBC | 4.93 | 3.70 - 5.20 | [facility] | | | | | M/uL | [facility] | | | | | | MEDICAL | | | | | | CENTER - | | | | | | LABORATORY | | + + + + + + | Hemoglobin | 15.0 | 11.5 - 16.0 | [facility] | | | | | g/dL | [facility] | | | | | | MEDICAL | | | | | | CENTER - | | | | | | LABORATORY | | + + + + + + | Hematocrit | 45.6 | 34.0 - 47.0 % | [facility] | | | | | | [facility] | | | | | | MEDICAL | | | | | | CENTER - | | | | | | LABORATORY | | + + + + + + | MCV | 92.6 | 83.0 - 101.0 fL | [facility] | | | | | | [facility] | | | | | | MEDICAL | | | | | | CENTER - | | | | | | LABORATORY | | + + + + + + | MCH | 30.4 | 28.0 - 35.0 pg | [facility] | | | | | | [facility] | | | | | | MEDICAL | | | | | | CENTER - | | | | | | LABORATORY | | + + + + + + | MCHC | 32.8 | 32.0 - 36.0 | [facility] | | | | | g/dL | [facility] | | | | | | MEDICAL | | | | | | CENTER - | | | | | | LABORATORY | | + + + + + + | RDW-CV | 14.5 | <15.0 % | [facility] | | | | | | [facility] | | | | | | MEDICAL | | | | | | CENTER - | | | | | | LABORATORY | | + + + + + + | Platelet | 226 | 140 - 440 K/uL | [facility] | | | Count | | | [facility] | | | | | | MEDICAL | | | | | | CENTER - | | | | | | LABORATORY | | + + + + + + | MPV | 10.3 | fL | [facility] | | | | | | [facility] | | | | | | MEDICAL | | | | | | CENTER - | | | | | | LABORATORY | | + + + + + + | % | 56.2 | 45.0 - 82.0 % | [facility] | | | Neutrophils | | | [facility] | | | | | | MEDICAL | | | | | | CENTER - | | | | | | LABORATORY | | + + + + + + | % | 28.3 | 20.0 - 45.0 % | [facility] | | | Lymphocytes | | | [facility] | | | | | | MEDICAL | | | | | | CENTER - | | | | | | LABORATORY | | + + + + + + | % Monocytes | 9.1 | 4.0 - 12.0 % | [facility] | | | | | | [facility] | | | | | | MEDICAL | | | | | | CENTER - | | | | | | LABORATORY | | + + + + + + | % | 5.5 (H) | 0.0 - 5.0 % | [facility] | | | Eosinophils | | | [facility] | | | | | | MEDICAL | | | | | | CENTER - | | | | | | LABORATORY | | + + + + + + | % Basophils | 0.9 | 0.0 - 1.0 % | [facility] | | | | | | [facility] | | | | | | MEDICAL | | | | | | CENTER - | | | | | | LABORATORY | | + + + + + + | Absolute | 4.80 | 1.80 - 8.50 | [facility] | | | Neutrophils | | K/uL | [facility] | | | | | | MEDICAL | | | | | | CENTER - | | | | | | LABORATORY | | + + + + + + | Absolute | 2.40 | 0.60 - 3.20 | [facility] | | | Lymphocytes | | K/uL | [facility] | | | | | | MEDICAL | | | | | | CENTER - | | | | | | LABORATORY | | + + + + + + | Absolute | 0.80 | 0.00 - 1.00 | [facility] | | | Monocytes | | K/uL | [facility] | | | | | | MEDICAL | | | | | | CENTER - | | | | | | LABORATORY | | + + + + + + | Absolute | 0.50 (H) | 0.00 - 0.40 | [facility] | | | Eosinophils | | K/uL | [facility] | | | | | | MEDICAL | | | | | | CENTER - | | | | | | LABORATORY | | + + + + + + | Absolute | 0.10 | 0.00 - 0.10 | [facility] | | | Basophils | | K/uL | [facility] | | | | [...] + + | [facility] | [address] | [place] | [phone] | | [facility] | | [address] | | | - LABORATORY | | | | + + + + + Hemoglobin A1C (08/28/2016 8:29 AM PDT) + +---------+ + + + | Component | Value | Ref Range | Performed | Pathologist | | | | | At | Signature | + +---------+ + + + | Hemoglobin | 6.2 (H) | 4.3 - 6.0 % | [facility] | | | A1c | | | [facility] | | | | | | MEDICAL | | | | | | CENTER - | | | | | | LABORATORY | | + +---------+ + + + | Estimated | 131 | mg/dL | [facility] | | | Average | | | [facility] | | | Glucose | | | MEDICAL | | | | | | CENTER - | | | | | | LABORATORY | | + +---------+ + + + + + | Specimen | + + | Blood | + + + + + + + | Performing | Address | City/State/Zipcode | Phone Number | | Organization | | | | + + + + + | [facility] | [address] | [place] | [phone] | | [facility] | | [address] | | | - LABORATORY | | | | + + + + + Comprehensive Metabolic Panel (08/28/2016 8:29 AM PDT) + + + + + + | Component | Value | Ref Range | Performed | Pathologist | | | | | At | Signature | + + + + + + | Na | 140 | 136 - 149 | [facility] | | | | | mmol/L | [facility] | | | | | | MEDICAL | | | | | | CENTER - | | | | | | LABORATORY | | + + + + + + | K | 3.9 | 3.5 - 5.1 | [facility] | | | | | mmol/L | [facility] | | | | | | MEDICAL | | | | | | CENTER - | | | | | | LABORATORY | | + + + + + + | Cl | 104 | 98 - 109 mmol/L | [facility] | | | | | | [facility] | | | | | | MEDICAL | | | | | | CENTER - | | | | | | LABORATORY | | + + + + + + | CO2 | 27 | 24 - 31 mmol/L | [facility] | | | | | | [facility] | | | | | | MEDICAL | | | | | | CENTER - | | | | | | LABORATORY | | + + + + + + | Anion Gap | 9 | 3 - 16 mmol/L | [facility] | | | | | | [facility] | | | | | | MEDICAL | | | | | | CENTER - | | | | | | LABORATORY | | + + + + + + | Glucose | 122 (H) | 70 - 109 mg/dL | [facility] | | | | | | [facility] | | | | | | MEDICAL | | | | | | CENTER - | | | | | | LABORATORY | | + + + + + + | BUN | 17 | 7 - 18 mg/dL | [facility] | | | | | | [facility] | | | | | | MEDICAL | | | | | | CENTER - | | | | | | LABORATORY | | + + + + + + | Creatinine | 1.04 | 0.60 - 1.30 | [facility] | | | | | mg/dL | [facility] | | | | | | MEDICAL | | | | | | CENTER - | | | | | | LABORATORY | | + + + + + + | eGFR if not | 53 (L)Comment: | >=60 | [facility] | | | | GLOMERULAR FILTRATION | mL/min/1.73m2 | [facility] | | | GABONESE | RATE,ESTIMATED | | MEDICAL | | | | mL/min/1.16g6Mxth than | | CENTER - | | | | 60 Chronic kidney [...] + + + + | Calcium | 9.4 | 8.3 - 10.5 | [facility] | | | | | mg/dL | [facility] | | | | | | MEDICAL | | | | | | CENTER - | | | | | | LABORATORY | | + + + + + + | Albumin | 3.7 | 3.2 - 5.0 g/dL | [facility] | | | | | | [facility] | | | | | | MEDICAL | | | | | | CENTER - | | | | | | LABORATORY | | + + + + + + | Bilirubin | 0.5 | 0.1 - 1.5 mg/dL | [facility] | | | Total | | | [facility] | | | | | | MEDICAL | | | | | | CENTER - | | | | | | LABORATORY | | + + + + + + | Total | 7.5 | 6.0 - 7.8 g/dL | [facility] | | | Protein | | | [facility] | | | | | | MEDICAL | | | | | | CENTER - | | | | | | LABORATORY | | + + + + + + | AST | 29 | 10 - 42 U/L | [facility] | | | | | | [facility] | | | | | | MEDICAL | | | | | | CENTER - | | | | | | LABORATORY | | + + + + + + | ALT | 25 | 6 - 45 U/L | [facility] | | | | | | [facility] | | | | | | MEDICAL | | | | | | CENTER - | | | | | | LABORATORY | | + + + + + + | Alkaline | 105 | 40 - 110 U/L | [facility] | | | Phosphatase | | | [facility] | | | | | | MEDICAL | | | | | | CENTER - | | | | | | LABORATORY | | + + + + + + | Globulin | 3.8 | 2.1 - 3.8 g/dL | [facility] | | | | | | [facility] | | | | | | MEDICAL | | | | | | CENTER - | | | | | | LABORATORY | | + + + + + + | Albumin/Cindy | 1.0 | 0.8 - 2.0 | [facility] | | | bulin Ratio | | | [facility] | | | | | | MEDICAL | | | | | | CENTER - | | | | | | LABORATORY | | + + + + + + | BUN/Creatin | 16.3 | | [facility] | | | ine [...] + + | [facility] | [address] | [place], [place] | [phone] | | [facility] | | [address] | | | - LABORATORY | | | | + + + + + Lipid Panel (08/28/2016 8:29 AM PDT) + + + + + + | Component | Value | Ref Range | Performed | Pathologist | | | | | At | Signature | + + + + + + | Triglycerid | 87 | 35 - 160 mg/dL | [facility] | | | es | | | [facility] | | | | | | MEDICAL | | | | | | CENTER - | | | | | | LABORATORY | | + + + + + + | Cholesterol | 170 | 150 - 200 mg/dL | [facility] | | | | | | [facility] | | | | | | MEDICAL | | | | | | CENTER - | | | | | | LABORATORY | | + + + + + + | HDL | 63Comment: New HDL | 28 - 83 mg/dL | [facility] | | | | Reference Range as of | | [facility] | | | | July 07, 2015 | | MEDICAL | | | | Values may be 10-20% | | CENTER - | | | | lower with new, | | LABORATORY | | | | standardized method. | | | | + + + + + + | Chol/HDL | 2.7 | | [facility] | | | Ratio | | | [facility] | | | | | | MEDICAL | | | | | | CENTER - | | | | | | LABORATORY | | + + + + + + | LDL, | 90 | <=130 mg/dL | [facility] | | | Calculated | | | [facility] | | [...] ST[facility] | [address] | [place] | [phone] | | [facility] | | [address] | | | - LABORATORY | | | | + + + + + documented in this encounter Visit Diagnoses + + | Diagnosis | + + | Essential hypertension with goal blood pressure less than 130/80 | + + | Hyperlipidemia, unspecified hyperlipidemia type | + + | Prediabetes Other abnormal glucose | + + | Tachycardia Tachycardia, unspecified | + + documented in this encounter"
--- OUTSIDE RECORDS SUMMARY | ~2019-10-23 | XMS | Encounter Summary ---
Demographics + + + | Address | [address] | | | [place] [address] | + + + | Home Phone [...] + + + | Author | [facility] | | | and Rainerana | + + + | Organization | [facility] | | | and Rainerana | [...] [place], [place] | | | | | [address] | | + + + + + | [address] | ECON | [place] | | | | | [address] | | + + + + + Care Team Providers + +------+ + | Care Jail Guard Name | Role | Phone | + +------+ + | Ivy Sun | PCP | | + +------+ + Reason for Visit +--------+ + | Reason | Comments | +--------+ + | Other | | +--------+ + Encounter Details +--------+ + + + + | Date | Type | Department | Care Team | Description | +--------+ + + + + | 03/19/ | Telephone | [facility] | Ivy Sun | Other | | 2013 | | MEDICINE [facility] | [address] | | | | | [address] | [place], [place] | | | | | [place], [place] | [address] | | | | | [address] | | | | | | [phone] | | | +--------+ + + + [...] | | 2019 | Visit | | L, [address] | | | | | | [place] | | | | | | [address] | | | | | | | | +--------+---------+ + + + + +------+--------+ + + | Name | Type | Priori | Associated Diagnoses | Order Schedule | | | | ty | | | + +------+--------+ + + | Comprehensive | Lab | Routin | Hypertension | 1 Occurrences | | Metabolic Panel | | e | Prediabetes | starting 03/29/2014 | | | | | Hyperlipidemia | until 03/29/2015 | + +------+--------+ + + | Lipid Panel | Lab | Routin | Hyperlipidemia | 1 Occurrences | | | | e | | starting 03/29/2014 | | | | | | until 03/29/2015 | + +------+--------+ + + | Microalbumin/Creatin | Lab | Routin | Hypertension | 1 Occurrences | | ine Ratio, Urine | | e | Prediabetes | starting 03/29/2014 | | | | | | until 03/29/2015 | + +------+--------+ + + | Hemoglobin A1C | Lab | Routin | Prediabetes | 1 Occurrences | | | | e | | starting 03/29/2014 | | | | | | until 03/29/2015 | + +------+--------+ + + documented as of this encounter Visit Diagnoses + + | Diagnosis | + + | Hypertension - Primary Unspecified essential hypertension | + + | Prediabetes Other abnormal glucose | + + | Hyperlipidemia Other and unspecified hyperlipidemia | + + documented in this encounter"
--- OUTSIDE RECORDS SUMMARY | ~2019-10-23 | XMS | Encounter Summary ---
Demographics + + + | Address | [address] | | | [place] [address] | + + + | Home Phone | | + + + | Preferred Language | Unknown | + + + | Marital Status | Single | + + + | Taoist Affiliation | 1077 | + + + | Race | Unknown | + + + | Ethnic Group | Unknown | + + + Author + + + | Author | [facility] | | | and Rainerana | + + + | Organization | [facility] | | | and Rainerana [...] [place], [place] | | | | | [address] | | + + + + + | [address] | ECON | [place] | | | | | [address] | | + + + + + Care Team Providers + +------+ + | Care Hide Shaker Name | Role | Phone | + +------+ + | Ivy Sun | PCP | | + +------+ + Encounter Details +--------+ + + + + | Date | Type | Department | Care Team | Description | +--------+ + + + + | 07/24/ | Hospital | [facility] | Ivy Sun | Decreased GFR | | 2016 | Encounter | [facility] | L, TACTICAL DEBRIEFER [address] | | | | | [address] [place] | [address] [place], [place] | | | | | [place], [place] | [address] | | | | | [address] | | | | | | [phone] | | | +--------+ + + + [...] [place] | | | | | | [address] | | | | | | | | +--------+---------+ + + + documented as of this encounter Procedures + +--------+ + + + | Procedure Name | Priori | Date/Time | Associated Diagnosis | Comments | | | ty | | | | + +--------+ + + + | RENAL FUNCTION PANEL | Routin | 07/24/2016 | Decreased GFR | Results for this | | | e | 10:29 AM | | procedure are in the | | | | PDT | | results section. | + +--------+ + + + documented in this encounter Results Renal Function Panel (07/24/2016 10:29 AM PDT) + +-------+ + + + | Component | Value | Ref Range | Performed | Pathologist | | | | | At | Signature | + +-------+ + + + | Na | 141 | 136 - 149 | [facility] | | | | | mmol/L | [facility] | | | | | | MEDICAL | | | | | | CENTER - | | | | | | LABORATORY | | + +-------+ + + + | K | 3.7 | 3.5 - 5.1 | [facility] | | | | | mmol/L | [facility] | | | | [...] 15 | 7 - 18 mg/dL | [facility] | | | | | | [facility] [...] | | | | | mL/min/1.73m2 | [facility] | | | [place] | | | MEDICAL | | | [...] 3.5 | 3.2 - 5.0 g/dL | [facility] | | | | | | [facility] | | | | | | MEDICAL | | | | | | CENTER - | | | | | | LABORATORY | | + +-------+ + + + | Phosphorus | 3.3 | 2.5 - 4.6 mg/dL | [facility] | | | | | | [facility] | | | | | | MEDICAL | | | | | | CENTER - | | | | | | LABORATORY | | + +-------+ + + + | BUN/Creatin | 17.6 | | [facility] | | | ine Ratio | | | [facility] | | [...] + | [facility] | [address] | [place] | [phone] | | [facility] | | [address] | | | - LABORATORY | | | | + + + + + documented in this encounter Visit Diagnoses + + | Diagnosis | + + | Decreased GFR Nonspecific abnormal results of kidney function study | + + documented in this encounter"
--- OUTSIDE RECORDS SUMMARY | ~2019-10-23 | XMS | Encounter Summary ---
Demographics + + + | Address | [address] | | | [place] [address] | + + + | Home Phone | | + + + | Preferred Language | Unknown | + + + | Marital Status | Single | + + + | Quaker Affiliation | [id number] | + + + | Race | Unknown | + + + | Ethnic Group | Unknown | + + + Author + + + | Author | [facility] | | | and [place] | + + + | Organization | [facility] | [...] [place], [place] | | | | | [address] | | + + + + + | [place] | ECON | [place] | | | | | [address] | | + + + + + Care Team Providers + +------+ + | Care 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
--- OUTSIDE RECORDS SUMMARY | ~2019-10-23 | XMS | Encounter Summary ---
Demographics + + + | Address | [address] | | | [place] [address] | + + + | Home Phone | | + + + | Preferred Language | Unknown | + + + | Marital Status | Single | + + + | Gnosticist Affiliation | 1077 | + + + | Race | Unknown | + + + | Ethnic Group | Unknown | + + + Author + + + | Author | [facility] | | | and Rainerana | + + + | Organization | [facility] | | | and Rainerana [...] [place], [place] | | | | | [address] | | + + + + + | Jelena Hill | ECON | [place] | | | | | [address] | | + + + + + Care Team Providers + +------+ + | Care Gas Furnace Installer Name | Role | Phone | + +------+ + | Ivy Sun | PCP | | + +------+ + Encounter Details +--------+ + + + + | Date | Type | Department | Care Team | Description | +--------+ + + + + | 04/23/ | Abstract | [facility] | Ivy Sun | | | 2015 | | [facility] | L, CONTROL SYSTEMS SPECIALIST [address] | | | | | [address] | [address] [place] | | | | | [place] | [address] | | | | | [address] | | | | | | [phone] | | | +--------+ + + + [...] [place] | | | | | | [address] | | | | | | | | +--------+---------+ + + + documented as of this encounter Procedures + +--------+ + + + | Procedure Name | Priori | Date/Time | Associated Diagnosis | Comments | | | ty | | | | + +--------+ + + + | EXTERNAL LAB: BUN | Routin | 04/04/2016 | | Results for this | | | e | | | procedure are in the | | | | | | results section. | + +--------+ + + + | EXTERNAL LAB: | Routin | 04/04/2016 | | Results for this | | GLUCOSE | e | | | procedure are in the | | | | | | results section. | + +--------+ + + + | EXTERNAL LAB: ALT | Routin | 04/04/2016 | | Results for this | | | e | | | procedure are in the | | | | | | results section. | + +--------+ + + + | EXTERNAL LAB: AST | Routin | 04/04/2016 | | Results for this | | | e | | | procedure are in the | | | | | | results section. | + +--------+ + + + | EXTERNAL LAB: | Routin | 04/04/2016 | | Results for this | | ALKALINE PHOSPHATASE | e | | | procedure are in the | | | | | | results section. | + +--------+ + + + | EXTERNAL LAB: | Routin | 04/04/2016 | | Results for this | | BILIRUBIN, TOTAL | e | | | procedure are in the | | | | | | results section. | + +--------+ + + + | EXTERNAL LAB: | Routin | 04/04/2016 | | Results for this | | ALBUMIN | e | | | procedure are in the | | | | | | results section. | + +--------+ + + + | EXTERNAL LAB: | Routin | 04/04/2016 | | Results for this | | PROTEIN, TOTAL | e | | | procedure are in the | | | | | | results section. | + +--------+ + + + | EXTERNAL LAB: | Routin | 04/04/2016 | | Results for this | | CALCIUM | e | | | procedure are in the | | | | | | results section. | + +--------+ + + + | EXTERNAL LAB: CARBON | Routin | 04/04/2016 | | Results for this | | DIOXIDE | e | | | procedure are in the | | | | | | results section. | + +--------+ + + + | EXTERNAL LAB: | Routin | 04/04/2016 | | Results for this | | CHLORIDE | e | | | procedure are in the | | | | | | results section. | + +--------+ + + + | EXTERNAL LAB: | Routin | 04/04/2016 | | Results for this | | POTASSIUM | e | | | procedure are in the | | | | | | results section. | + +--------+ + + + | EXTERNAL LAB: SODIUM | Routin | 04/04/2016 | | Results for this | | | e | | | procedure are in the | | | | | | results section. | + +--------+ + + + | EXTERNAL LAB: | Routin | 04/04/2016 | | Results for this | | URINALYSIS | e | | | procedure are in the | | | | | | results section. | + +--------+ + + + | EXTERNAL LAB: | Routin | 04/04/2016 | | Results for this | | TRIGLYCERIDES | e | | | procedure are in the | | | | | | results section. | + +--------+ + + + | EXTERNAL LAB: | Routin | 04/04/2016 | | Results for this | | CHOLESTEROL, HDL | e | | | procedure are in the | | | | | | results section. | + +--------+ + + + | EXTERNAL LAB: | Routin | 04/04/2016 | | Results for this | | CHOLESTEROL, TOTAL | e | | | procedure are in the | | | | | | results section. | + +--------+ + + + | EXTERNAL LAB: | Routin | 04/04/2016 | | Results for this | | CHOLESTEROL, LDL | e | | | procedure are in the | | | | | | results section. | + +--------+ + + + | EXTERNAL LAB: | Routin | 04/04/2016 | | Results for this | | MICROALBUMIN/CREATIN | e | | | procedure are in the | | INE RATIO, URINE | | | | results section. | + +--------+ + + + | EXTERNAL LAB: EGFR | Routin | 04/04/2016 | | Results for this | | | e | | | procedure are in the | | | | | | results section. | + +--------+ + + + | EXTERNAL LAB: | Routin | 04/04/2016 | | Results for this | | CREATININE | e | | | procedure are in the | | | | | | results section. | + +--------+ + + + | LIPID PANEL | Routin | 04/04/2016 | | Results for this | | | e | | | procedure are in the | | | | | | results section. | + +--------+ + + + | HEMOGLOBIN A1C | Routin | 04/04/2016 | | Results for this | | | e | | | procedure are in the | | | | | | results section. | + +--------+ + + + | COMPREHENSIVE | Routin | 04/04/2016 | | Results for this | | METABOLIC PANEL | e | | | procedure are in the | | | | | | results section. | + +--------+ + + + documented in this encounter Results Comprehensive Metabolic Panel (04/04/2016) + +-------+ + + + | Component | Value | Ref Range | Performed | Pathologist | | | | | At | Signature | + +-------+ + + + | Anion Gap | 16 | 7 - 21 mmol/L | [facility] | | | | | [facility] | | [facility] | | [facility] - | | | | | | LAB[facility]ATORY | | + +-------+ + + + | Bun/Creatin | 18.3 | 6.0 - 28.6 | [facility] | | | ine | | | [facility] | | | | | | [facility] | | | | | [facility] - | | | | | | LABORATORY | | + +-------+ + + + | Globulin | 3.1 | 1.8 - 3.5 | [facility] | | | | [facility] | | | | [facility] - | | | | | | LABORATORY | | + +-------+ + + + | Albumin/Cindy | 1.2 | 1.1 - 2.4 | [facility] | | | bulin Ratio [...] + | [facility] | [address] | [place] | [phone] | | [facility] | | [address] | | | - LABORATORY | | | | + + + + + Lipid Panel (04/04/2016) + +-------+ + + + | Component | Value | Ref Range | Performed | Pathologist | | | | | At | Signature | + +-------+ + + + | VLDL | 15 | 4 - 40 | | | | Cholesterol | | | | | | Nic | | | | | + +-------+ + + + | Chol/HDL | 2.2 | 4.4 | | | | Ratio | | | | | + +-------+ + + + | Non HDL | 68 | 130 | | | | Chol. | | | | | | (LDL+VLDL) | | | | | + +-------+ + + + + + | Specimen | + + | Blood specimen | | (specimen) | + + Hemoglobin A1C (04/04/2016) + +-------+ + + + | Component | Value | Ref Range | Performed | Pathologist | | | | | At | Signature | + +-------+ + + + | Hemoglobin | 6.2 | | | | | A1c, | | | | | | external | | | | | + +-------+ + + + + + | Specimen | + + | Blood specimen | | (specimen) | + + External Lab: MOSES (04/04/2016) + +-------+ + + + | Component | Value | Ref Range | Performed | Pathologist | | | | | At | Signature | + +-------+ + + + | BUN, | 17 | | | | | External | | | | | + +-------+ + + + External Lab: Glucose (04/04/2016) + +-------+ + + + | Component | Value | Ref Range | Performed | Pathologist | | | | | At | Signature | + +-------+ + + + | Glucose, | 115 | | | | | External | | | | | + +-------+ + + + External Lab: ALT (04/04/2016) + +-------+ + + + | Component | Value | Ref Range | Performed | Pathologist | | | | | At | Signature | + +-------+ + + + | ALT, | 18 | | | | | External | | | | | + +-------+ + + + External Lab: AST (04/04/2016) + +-------+ + + + | Component | Value | Ref Range | Performed | Pathologist | | | | | At | Signature | + +-------+ + + + | AST, | 19 | | | | | External | | | | | + +-------+ + + + External Lab: Alkaline Phosphatase (04/04/2016) + +-------+ + + + | Component | Value | Ref Range | Performed | Pathologist | | | | | At | Signature | + +-------+ + + + | ALP, | 94 | | | | | External | | | | | + +-------+ + + + External Lab: Bilirubin, Total (04/04/2016) + +-------+ + + + | Component | Value | Ref Range | Performed | Pathologist | | | | | At | Signature | + +-------+ + + + | Bilirubin, | 0.4 | | | | | Total, | | | | | | External | | | | | + +-------+ + + + External Lab: Albumin (04/04/2016) + +-------+ + + + | Component | Value | Ref Range | Performed | Pathologist | | | | | At | Signature | + +-------+ + + + | Albumin, | 3.8 | | | | | External | | | | | + +-------+ + + + External Lab: Protein, Total (04/04/2016) + +-------+ + + + | Component | Value | Ref Range | Performed | Pathologist | | | | | At | Signature | + +-------+ + + + | Protein, | 6.9 | | | | | Total, | | | | | | External | | | | | + +-------+ + + + External Lab: Calcium (04/04/2016) + +-------+ + + + | Component | Value | Ref Range | Performed | Pathologist | | | | | At | Signature | + +-------+ + + + | Calcium, | 8.9 | | | | | External | | | | | + +-------+ + + + External Lab: Carbon Dioxide (04/04/2016) + +-------+ + + + | Component | Value | Ref Range | Performed | Pathologist | | | | | At | Signature | + +-------+ + + + | Carbon | 25 | | | | | Dioxide, | | | | | | External | | | | | + +-------+ + + + External Lab: Chloride (04/04/2016) + +-------+ + + + | Component | Value | Ref Range | Performed | Pathologist | | | | | At | Signature | + +-------+ + + + | Chloride, | 102 | | | | | External | | | | | + +-------+ + + + External Lab: Potassium (04/04/2016) + +-------+ + + + | Component | Value | Ref Range | Performed | Pathologist | | | | | At | Signature | + +-------+ + + + | Potassium, | 4.6 | | | | | External | | | | | + +-------+ + + + External Lab: Sodium (04/04/2016) + +-------+ + + + | Component | Value | Ref Range | Performed | Pathologist | | | | | At | Signature | + +-------+ + + + | Sodium, | 138 | | | | | External | | | | | + +-------+ + + + External Lab: Urinalysis (04/04/2016) + + + + + + | Component | Value | Ref Range | Performed | Pathologist | | | | | At | Signature | + + + + + + | UA Blood, | Negative | | | | | External | | | | | + + + + + + | UA Glucose, | Normal | | | | | External | | | | | + + + + + + | UA Ketones, | Negative | | | | | External | | | | | + + + + + + | UA Ph, | 5 | | | | | External | | | | | + + + + + + | UA | Negative | | | | | Proteins, | | | | | | External | | | | | + + + + + + | UA RBC, | 0 | | | | | External | | | | | + + + + + + | UA Specific | 1.026 | | | | | [place], | | | | | | External | | | | | + + + + + + | UA | Negative | | | | | Leukocyte | | | | | | Esterase, | | | | | | External | | | | | + + + + + + External Lab: Triglycerides (04/04/2016) + +-------+ + + + | Component | Value | Ref Range | Performed | Pathologist | | | | | At | Signature | + +-------+ + + + | Triglycerid | 76 | | | | | es, | | | | | | External | | | | | + +-------+ + + + + + | Specimen | + + | Blood specimen | | (specimen) | + + External Lab: Cholesterol, HDL (04/04/2016) + +-------+ + + + | Component | Value | Ref Range | Performed | Pathologist | | | | | At | Signature | + +-------+ + + + | HDL | 58.8 | mg/dl | | | | Cholesterol | | | | | | , External | | | | | + +-------+ + + + + + | Specimen | + + | Blood specimen | | (specimen) | + + External Lab: Cholesterol, Total (04/04/2016) + +-------+ + + + | Component | Value | Ref Range | Performed | Pathologist | | | | | At | Signature | + +-------+ + + + | Cholesterol | 127 | mg/dl | | | | , Total, | | | | | | External | | | | | + +-------+ + + + + + | Specimen | + + | Blood specimen | | (specimen) | + + External Lab: Cholesterol, LDL (04/04/2016) + +-------+ + + + | Component | Value | Ref Range | Performed | Pathologist | | | | | At | Signature | + +-------+ + + + | LDL | 53 | | | | | Cholesterol | | | | | | , Direct, | | | | | | External | | | | | + +-------+ + + + + + | Specimen | + + | Blood specimen | | (specimen) | + + External Lab: Microalbumin/Creatinine Ratio, Urine (04/04/2016) + +-------+ + + + | Component | Value | Ref Range | Performed | Pathologist | | | | | At | Signature | + +-------+ + + + | Microalbumi | 3.2 | | | | | n/Creatinin | | | | | | e Ratio, | | | | | | External | | | | | + +-------+ + + + + + | Specimen | + + | Blood specimen | | (specimen) | + + External Lab: eGFR (04/04/2016) + +-------+ + + + | Component [...] (specimen) | + + External Lab: Creatinine (04/04/2016) + +-------+ + + + | Component | Value | Ref Range | Performed | Pathologist | | | | | At | Signature | + +-------+ + + + | Creatinine, | 0.93 | | | | | External | | | | | + +-------+ + + + + + | Specimen | + + | Blood specimen | | (specimen) | + + documented in this encounter Visit Diagnoses Not on filedocumented in this encounter"
--- OUTSIDE RECORDS SUMMARY | ~2019-10-23 | XMS | Encounter Summary ---
Demographics + + + | Address | [address] | | | [place] [address] | + + + | Home Phone | | + + + | Preferred Language | Unknown | + + + | Marital Status | Single | + + + | Pentecostal Affiliation | 1077 | + + + | Race | Unknown | + + + | Ethnic Group | Unknown | + + + Author + + + | Author | [facility] | | | and Rainerana | + + + | Organization | [facility] | | | and Rainerana [...] [place], [place] | | | | | [address] | | + + + + + | Jelena Hill | ECON | [place] | | | | | [address] | | + + + + + Care Team Providers + +------+ + | Care Director Food And Beverage Name | Role | Phone | + [...] + + | Closed | Specialty | Otolaryngolog | Diagnoses | Dino, | Lila, | | | Services | y | Hearing | Ivy Keating, | Federico Cannon MD | | | Required | | loss, | [employer] [address] | | | | | unspecified | [address] | [address] | | | | | hearing loss | [place], | [place], | | | | | type, | [place] [address] | [place] [address] | | | | | unspecified | Phone: | Phone: | | | | | laterality | [phone] | [phone] | | | | | Vertigo | Fax: | Fax: | | | | | | [phone] | [phone] | +--------+ + + + + + Reason for Visit + + + | Reason | Comments | + + + | Referral | | + + + Encounter Details +--------+ + + + + | Date | Type | Department | Care Team | Description | +--------+ + + + + | 01/24/ | Telephone | [facility] | Ivy Sun | Referral | | 2017 | | MEDICINE [place] | L, VP PRODUCT MANAGEMENT [address] | | | | | [address] | [address] [place], [place] | | | | | [place], [place] | [address] | | | | | [address] | | | | | | [phone] | | | +--------+ + + + [...] 2020 | Visit | | Rishabh, [address] | | | | | | [place] | | | | | | [address] | | | | | | | | +--------+---------+ + + + + + +--------+ + + | Name | Type | Priori | Associated Diagnoses | Order Schedule | | | | ty | | | + + +--------+ + + | ENT, External - AMB | Outpatient | Routin | Hearing Loss, | Ordered: 01/24/2017 | | Referral | Referral | e | Unspecified Hearing | | | | | | Loss Type, | | | | | | Unspecified | | | | | | Laterality Vertigo | | + + +--------+ + + documented as of this encounter Visit Diagnoses + + | Diagnosis | + + | Hearing loss, unspecified hearing loss type, unspecified laterality - Primary | + + | Vertigo Dizziness and giddiness | + + documented in this encounter"
--- OUTSIDE RECORDS SUMMARY | ~2019-10-23 | XMS | Encounter Summary ---
Demographics + + + | Address | [address] | | | [place] [address] | + + + | Home Phone | | + + + | Preferred Language | Unknown | + + + | Marital Status | Single | + + + | Hindu Affiliation | 1077 | + + + | Race | Unknown | + + + | Ethnic Group | Unknown | + + + Author + + + | Author | [facility] | | | and Rainerana | + + + | Organization | [facility] [...] [place], [place] | | | | | [address] | | + + + + + | [address] | ECON | [place] | | | | | [address] | | + + + + + Care Team Providers + +------+ + | Care Licensed Tax Consultant Name | Role | Phone | + +------+ + | Ivy Sun | PCP | | + +------+ + Encounter Details +--------+ + + + + | Date | Type | Department | Care Team | Description | +--------+ + + + + | 08/09/ | Orders Only | [facility] | Lorenzo Pryor, | Midline low back | | 2016 | | NEUROSURGERY [address] | DO [address] | pain with sciatica, | | | | [address] | [address] [place], [place] | sciatica laterality | | | | [place], [place] | [address] | unspecified, | | | | [address] | | unspecified | | | | [phone] | | chronicity (Primary | | | | | | Dx) | +--------+ + + + + Social [...] | | | | | | [place] | | | | | | [address] | | | | | | | | +--------+---------+ + + + documented as of this encounter Results XR Thoracic Spine 2 Vw (08/28/2016 11:07 AM PDT) + + | Specimen | + + | | + + + + + | Narrative | Performed At | + + + | THORACIC SPINE: 08/28/2016 11:07 AM CLINICAL HISTORY: Back pain | [facility] | | COMPARISON: Thoracic MRI 08/01/2016; 08/17/2015 radiographs. | [facility] | | FINDINGS: Focal levoscoliosis centered around T4-T5. Milder | MEDICAL CENTER | | compensatory upper lumbar dextroscoliosis. This [...] + + | Performing | Address | City/State/[facility] | Phone Number | | Organization | | | | + + + + + | [facility] | [address] | [place] | [phone] | | [facility] | | [address] | | | - IMAGING | | | | + + + + + documented in this encounter Visit Diagnoses + + | Diagnosis | + + | Midline low back pain with sciatica, sciatica laterality unspecified, unspecified | | chronicity - Primary | + + documented in this encounter"
--- OUTSIDE RECORDS SUMMARY | ~2019-10-23 | XMS | Encounter Summary ---
Demographics + + + | Address | [address] | | | [place] [address] | + + + | Home Phone | | + + + | Preferred Language | Unknown | + + + | Marital Status | Single | + + + | Yazidi Affiliation | 1077 | + + + | Race | Unknown | + + + | Ethnic Group | Unknown | + + + Author + + + | Author | [facility] | | | and Rainerana | + + + | Organization | [facility] | | | and [...] [place], [place] | | | | | [address] | | + + + + + | [address] | ECON | [place] | | | | | [address] | | + + + + + Care Team Providers + +------+ + | Care Museum Librarian Name | Role | Phone | + +------+ + | Ivy Sun | PCP | | + +------+ + Reason for Visit + + + | Reason | Comments | + + + | Appointment | | + + + Encounter Details +--------+ + + + + | Date | Type | Department | Care Team | Description | +--------+ + + + + | 07/12/ | Telephone | [facility] | Reynaldo Astorga, | Appointment | | 2013 | | ORTHOPEDIC SURGERY | [address] [facility] | | | | | [address] [facility] | [place] | | | | | [place] | [address] | | | | | [address] | | | | | | [phone] | | | +--------+ + + + [...]
--- OUTSIDE RECORDS SUMMARY | ~2019-10-23 | XMS | Encounter Summary ---
Demographics + + + | Address | [address] | | | [place] [address] | + + + | Home Phone | | + + + | Preferred Language | Unknown | + + + | Marital Status | Single | + + + | Episcopal Affiliation | 1077 | + + + | Race | Unknown | + + + | Ethnic Group | Unknown | + + + Author + + + | Author | [facility] | | | and Rainerana | + + + | Organization | [facility] | | | and Rainerana [...] [place], [place] | | | | | [address] | | + + + + + | [address] | ECON | [place] | | | | | [address] | | + + + + + Care Team Providers + +------+ + | Care Roll Plugger Name | Role | Phone | + [...] Services | y | Hearing | Ivy eKating, | Federico Cannon MD | | | Required | | loss of left | 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 [address] | | | | ear, | [address] | [address] | | | | | unspecified | [place], | [place], | | | | | hearing loss | [place] [address] | [place] [address] | | | | | type Acute | Phone: | Phone: | | | | | otitis | [phone] | [phone] | | | | | media of | Fax: | Fax: | | | | | left ear | [phone] | [phone] | | | | | with | | | | | | | perforation | | | +--------+ + + + + + Reason for Visit + + + | Reason | Comments | + + + | Pre-Diabetes | | + + + | Hypertension | | + + + | Hyperlipidemia | | + + + | Otalgia | | + + + | Skin Lesion | | + + + Encounter Details +--------+---------+ + + + | Date | Type | Department | Care Team | Description | +--------+---------+ + + + | 03/31/ | Office | [facility] | Ivy Sun | Acute otitis media | | 2019 | Visit | [facility] [place] | L, 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 [address] | of left ear with | | | | [address] | [address] [place] | perforation (Primary | | | | [place] | [address] | Dx); Hearing loss | | | | [address] | | of left ear, | | | | [phone] | | unspecified hearing | | | | | | loss type; Essential | | | | | | hypertension; IFG | | | | | | (impaired fasting | | | | | | glucose); Mixed | | | | | | hyperlipidemia; | | | | | | Neoplasm of | | | | | | uncertain behavior | | | | | | of skin | +--------+---------+ + + + Social History [...] + + + | Blood Pressure | 110/78 | 03/31/2019 11:06 AM | | | | | PDT | | + + + + + | Pulse | 104 | 03/31/2019 11:06 AM | | | | | PDT | | + + + + + | Temperature | 36 C (96.8 F) | 03/31/2019 11:06 AM | | | | | PDT | | + + + + + | Respiratory Rate | 16 | 03/31/2019 11:06 AM | | | | | PDT | | + + + + + | Oxygen Saturation | 94% | 03/31/2019 11:06 AM | | | | | PDT | | + + + + + | Inhaled Oxygen | - | - | | | Concentration | | | | + + + + + | Weight | 129.9 kg (286 lb 6 | 03/31/2019 11:06 AM | | | | oz) | PDT | | + + + + + | Height | 170.2 cm (5' 7") | 03/31/2019 11:06 AM | | | | | PDT | | + + + + + | Body Mass Index | 44.85 | 03/31/2019 11:06 AM | | | | | PDT | | + + + + + documented in this encounter Patient Instructions Patient Instructions Alessandro Davenport RN - 03/31/2019 10:45 AM PDT Stop Meformin Keep active and keep weight stable We will call you to schedule an appointment for your lesion removal (morning appointment) Come fasting for your appointment to have fasting labs drawn Referral placed to Dr Sharp - they will call you to schedule an appointment Have [facility] send your records to us and Dr Sharp Check blood sugars 2-3 times per wee. Half the time fasting and half the time 2 hours after biggest meal. documented in this encounter Progress Notes Ivy Sun ARNP - 03/31/2019 10:45 AM PDTFormatting of this note might be differen t from the original. Lucie Miller is a 68 y.o. female Chief Complaint: Pre-Diabetes; Hypertension; Hyperlipidemia; Otalgia; and Skin Lesion HPI Prediabetes : Control and Compliance Antidiabetic medications Biguanides metFORMIN (GLUCOPHAGE) 500 mg tablet TAKE ONE TABLET BY MOUTH DAILY WITH BREAKFAST Diet: She understands dietary principles. Patient does not count carbs. Exercise: not exercising She has not been checking home blood sugars. Body mass index is 44.85 kg/m. Wt Readings from Last 3 Encounters: 03/31/19 129.9 kg (286 lb 6 oz) 11/12/18 133 kg (293 lb 3.4 oz) 11/03/18 135 kg (297 lb 9.9 oz) BP: 110/78 Diabetes parameters Lab Results Component Value Date HBA1C 6.0 (A) 03/31/2019 HBA1C 6.0 (A) 09/30/2018 HBA1C 6.3 (H) 03/06/2018 [id number] 6.2 04/04/2016 [id number] 5.9 08/19/2015 LDL 104 07/30/2017 MALBCRERATIO 5 07/30/2017 MALBCRE 3.2 04/04/2016 MALB 9.3 04/06/2014 Hypertension: Control and Compliance Current antihypertensive medications Disp Refills Start End lisinopril (PRINIVIL, ZESTRIL) 5 mg tablet 90 tablet 1 01/29/2019 Sig: TAKE ONE TABLET BY MOUTH DAILY Medication compliance: good Home Blood Pressures: Not monitoring Exercise: not exercising BP: 110/78 BP Readings from Last 3 Encounters: 03/31/19 110/78 11/12/18 112/78 11/03/18 (!) 150/114 Pt denies: No headache, visual symptoms, neurologic problems, syncope No chest pain, palpitations, ROSAS, orthopnea, PND, peripheral edema No side effects from any antihypertensive medications HYPERLIPIDEMIA: Patient is compliant with medications. Statins HMG CoA Reductase Inhibitors simvastatin (ZOCOR) 10 mg tablet TAKE ONE TABLET BY MOUTH ONCE NIGHTLY Diet: Low fat, low carb dietary compliance: not counting carbs, not portion sizing. Denies side effects of medications. Denies Myalgias, abdominal pain, jaundice, constipatio n. No evidence of medication toxicity Denies chest pain, shortness of breath Additional measures started by the patient to reduce lipids include: aerobic exercise : not exercising weight reduction: weight down 11 pounds since October Vitals 08/18/2018 10/01/2018 11/03/2018 Weight 295 lbs 10 oz 291 lbs 297 lbs 10 oz Vitals 11/12/2018 03/31/2019 Weight 293 lbs 3 oz 286 lbs 6 oz Results for LUCIE MILLER ( ) as of 03/31/2019 10:58 Ref. Range 09/30/2018 00:00 Chol/HDL Ratio Latest Ref Range: 4.4 2.7 Cholesterol, Total, External Latest Ref Range: 200 mg/dl 147 HDL Cholesterol, External Latest Ref Range: 40 mg/dl 55.0 LDL Cholesterol, External Latest Ref Range: 100 76 Non HDL Chol. (LDL+VLDL) Latest Ref Range: 130 92 Triglycerides, External Latest Ref Range: 30 - 150 78 VLDL Cholesterol Nic Latest Ref Range: 4 - 40 16 Ear Pain Seen at [facility] in [place] for left ear pain and perforated TM February 27. Treated with Augmentin for 10 days, which did give her a yeast infection. Did improve but continues to have intermittent pain in left ear and will wake up with dry crusty drainage in ear. Wonder s if she still has an infection in that ear. Denies fevers. Has chronic hearing loss in that ear but does have hearing in that ear and feels it is worse - wears a hearing aid. Denies tinnitus. Skin Lesion Patient report she noticed a skin lesion on her left upper back for the past week. Had not noticed it prior to that, not sure whether it was present prior to that. Denies it is painful for itchy. Denies personal history of skin cancer. Family history of skin cancer on his arms, not sure which type. PREVENTIVE CARE/PRIOR VISITS 1. Any recommendations from Health Maintenance: Advanced Care Plan Preventative Services TOPIC LAST DONE NEXT DUE Adult Annual Wellness Visit 10/01/2018 10/01/2019 Hepatitis C Screening 07/30/2017 Colorectal Cancer Screening (Colonoscopy) 05/22/2011 05/22/2021 Vaccine: Influenza 10/01/2018 Breast Cancer Screening (Ages 50-74) 10/03/2018 10/03/2020 Vaccine: Dtap/Tdap/Td 07/24/2016 07/24/2026 Vaccine: Pneumococcal 65+ Low/Medium Risk 10/01/2018 Vaccine: Zoster 05/13/2013 07/08/2013 2. Any immunizations necessary: Shingrix Immunization History Administered Date(s) Administered INFLUENZA 67 [...] has been changed since signin Order [facility] [place] Blood Glucose Calibration (OT ULTRA/FASTTK CNTRL SOLN) SOLN (Taking) Use to calibrate glu cometer Number of times this order has been changed since signin Order [facility] [place] Blood Glucose Monitoring Suppl (ONE TOUCH ULTRA SYSTEM KIT) w/Device KIT (Taking) Use to check blood sugars 3 times weekly. Number of times this order has been changed since signin Order [facility] [place] cholecalciferol (CHOLECALCIFEROL) 2000 units TABS (Taking) Take 2,000 Units by mouth Tresa y. ferrous sulfate 325 mg tablet (Taking) TAKE ONE TABLET BY MOUTH TWICE A DAY Number of times this order has been changed since signin Order [facility] [place] gabapentin (NEURONTIN) 600 MG tablet (Taking) TAKE ONE TABLET BY MOUTH NIGHTLY Number of times this order has been changed since signin Order [facility] [place] glucose blood test strips (ONE TOUCH ULTRA TEST) strip (Taking) Test fasting 3 times w eekly, and check 30 min pre and 2 hours post main meal Number of times this order has been changed since signin Order [facility] [place] lisinopril (PRINIVIL, ZESTRIL) 5 mg tablet (Taking) TAKE ONE TABLET BY MOUTH DAILY Number of times this order has been changed since signin Order [facility] [place] metFORMIN (GLUCOPHAGE) 500 mg tablet (Taking/Discontinued) TAKE ONE TABLET BY MOUTH DAILY WITH BREAKFAST Number of times this order has been changed since signin [facility] [place] nortriptyline (PAMELOR) 10 MG capsule (Taking) TAKE 3 CAPSULES BY MOUTH NIGHTLY Number of times this order has been changed since signin Order [facility] [place] ONE TOUCH ULTRASOFT LANCETS MISC (Taking) Use to check blood sugars 3 times a week Number of times this order has been changed since signin [facility] [place] oxybutynin (DITROPAN-XL) 10 MG 24 hr tablet (Taking) Take 1 tablet by mouth Daily. Number of times this order has been changed since signin [facility] [place] PARoxetine (PAXIL) 40 MG tablet (Taking) TAKE ONE TABLET BY MOUTH DAILY Number of times this order has been changed since signin [facility] [place] rOPINIRole (REQUIP) 2 MG tablet (Taking) TAKE ONE TABLET BY MOUTH NIGHTLY Number of times this order has been changed since signin Order [facility] [place] simvastatin (ZOCOR) 10 mg tablet (Taking) TAKE ONE TABLET BY MOUTH ONCE NIGHTLY Number of times this order has been changed since signin Order [facility] [place] tiZANidine (ZANAFLEX) 2 MG tablet (Taking) TAKE ONE TABLET (2MG) BY MOUTH EVERY 6 TO 8 HO URS NEEDED FOR MUSCLE SPASMS. Number of times this order has been changed since signin [facility] [place] UNABLE TO FIND (Taking) Med Name: Resmed AirSense 10 autoset CPAP: 13-20cm while sleeping . UNCODED MEDICATION (Taking) Diagnosis: Obstructive Sleep Apnea ICD-9: 327.23 Length of Need: 99 Months Number of times this order has been changed since signin [facility] [place] UNCODED MEDICATION (Taking) Wear at all times while sleeping. Number of times this order has been changed since signin [facility] [place] Past Medical History She has a past [...] fatigue and fever. HENT: Positive for ear discharge, ear pain and hearing loss (she wears hearing aids bilater al. hearing loss worse in the left ear since infection). Negative for tinnitus. Respiratory: Negative for cough, chest tightness, shortness of breath and wheezing. Cardiovascular: Negative for chest pain and palpitations. Gastrointestinal: Positive for nausea. Musculoskeletal: Positive for back pain. Skin: Skin lesion, left upper back/neck Neurological: Negative for dizziness, syncope and headaches. Objective: Vitals: 03/31/19 1106 BP: 110/78 Pulse: 104 Resp: 16 Temp: 36 C (96.8 F) TempSrc: Temporal SpO2: 94% Weight: 129.9 kg (286 lb 6 oz) Height: 1.702 m (5' 7") Physical Exam Constitutional: She is oriented to person, place, and time. She appears well-developed and well-nourished. No distress. HENT: Head: Normocephalic and atraumatic. Right Ear: Tympanic membrane, external ear and ear canal normal. No drainage or tenderness. Tympanic membrane is not erythematous, not retracted and not bulging. Tympanic membrane mob ility is normal. Left Ear: Tympanic membrane and ear canal normal. There is drainage and tenderness. No mast oid tenderness. Tympanic membrane mobility is normal. Ears: Mouth/Throat: Uvula is midline, oropharynx is clear and moist and mucous membranes are norm al. No oral lesions. No oropharyngeal exudate, posterior oropharyngeal edema, posterior orop haryngeal erythema or tonsillar abscesses. Unable to visualize left TM due to drainage Eyes: Pupils are equal, round, and reactive to light. Conjunctivae are normal. Right eye ex hibits no discharge. Left eye exhibits no discharge. No scleral icterus. Neck: Normal range of motion. Neck supple. No JVD present. No thyromegaly present. Cardiovascular: Normal rate, regular rhythm and normal heart sounds. Exam reveals no gallop and no friction rub. No murmur heard. Pulmonary/Chest: Effort normal and breath sounds normal. No accessory muscle usage or strid or. No tachypnea. No respiratory distress. She has no wheezes. She has no rales. She exhibit s no tenderness. Lymphadenopathy: She has no cervical adenopathy. Neurological: She is alert and oriented to person, place, and time. Skin: Skin is warm and dry. Lesion noted. No rash noted. She is not diaphoretic. 7 mm raised lesion, rolled border appearance, pink Under dermascope there are branching vessels on periphery of lateral edge. Psychiatric: She has a normal mood and affect. Her behavior is normal. Nursing note and vitals reviewed. Ortho Exam Consent for Photo The patient was advised that digital photos will be taken today of Lucie Miller. The p atient verbally consented to having these photos taken for purposes of documenting his/her c ondition.The patient understands that the images will be stored in their medical record. Results for orders placed or performed in visit on 03/31/19 POCT Hemoglobin A1c Result Value Ref Range Hemoglobin A1C, POC 6.0 (A) 4.0 - 5.8 % Assessment: 1. Acute otitis media of left ear with perforation Ambulatory referral to ENT ofloxacin (FLOXIN) 0.3% otic solution 2. Hearing loss of left ear, unspecified hearing loss type Ambulatory referral to ENT DISCONTINUED: ofloxacin (FLOXIN) 0.3% otic solution 3. Essential hypertension 4. IFG (impaired fasting glucose) POCT Hemoglobin A1c 5. Mixed hyperlipidemia 6. Neoplasm of uncertain behavior of skin Plans: 1. Acute otitis media of left ear with perforation 2. Hearing loss of left ear, unspecified hearing loss type Discussed she will need to see ENT for further evaluation due to perforatino. Will treat with a 7 day course of ear drops in the meantime, Ofloxacin 10 drops in left ear daily. Advised she not wear her hearing aids until this issue has resolved. - Ambulatory referral to ENT - ofloxacin (FLOXIN) 0.3% otic solution; Place 10 drops into the left ear Daily for 7 days. Dispense: 4 mL; Refill: 0 3. Essential hypertension Controlled. No change in care. -. Blood pressure stable and goals discussed -. Continue current medications - Advised low salt diet - Advised regular cardiovascular exercise -. Labs reviewed and discussed with the patient - Follow up as needed if blood pressures are above goal 4. IFG (impaired fasting glucose) Discussed her A1c is stable and controlled. Will have patient stop her Metformin. In doing so, she will need to be sure she is remains active and keeps her weight down. Olga ent agrees to do this. Will plan to recheck her A1c in three months. - POCT Hemoglobin A1c 5. Mixed hyperlipidemia Due for fasting labs. Patient will have these done when she returns for a lesion removal appointment. -. Take meds as directed, Please inform us of any side effects or problems with your medic ations -. Discussed regular cardiovascular exercise and maintaining healthy wt. -. Avoid high fat/cholesterol diet -. Lipid panel and LFT's reviewed. and f/u labs ordered 6. Neoplasm of uncertain behavior of skin Discussed the lesion has appearances consistent with a basal cell cancer. Recommend patient return for a removal. Will plan to do a shave biopsy. Referral placed to her insurance to have this done. Follow-up: Return in about 3 months (around 07/01/2019) for Prediabetes/A1c. sooner if needed . Care instructions and warning signs were discussed. Medications per orders. Side effects discussed. Labs and investigations per orders. I Alessandro Davenport RN am acting as a scribe on behalf of, and in the presence of JUSTYN Garibay. Electronically signed by: Alessandro Davenport RN 03/31/19 10:52 I, JUSTYN Babcock personally performed the services described in this documentati on, as scribed by Alessandro Davenport RN in my presence, and are both accurate and complete. Electro nically Signed by: JUSTYN Babcock 04/01/19 9:32 documented in th is encounter Plan of [...] [place] | | | | | | [id number] | | | | | | | | +--------+---------+ + + + + + +--------+ + + | Name | Type | Priori | Associated Diagnoses | Order Schedule | | | | ty | | | + + +--------+ + + | Ambulatory referral | Outpatient | Routin | Hearing loss of | Ordered: 03/31/2019 | | to ENT | Referral | e | left ear, | | | | | | unspecified hearing | | | | | | loss type Acute | | | | | | otitis media of left | | | | | | ear with | | | | | | perforation | | + + +--------+ + + documented as of this encounter Procedures + +--------+ + + + | Procedure Name | Priori | Date/Time | Associated Diagnosis | Comments | | | ty | | | | + +--------+ + + + | POCT HEMOGLOBIN A1C | Routin | 03/31/2019 | IFG (impaired | Results for this | | | e | 12:06 PM | fasting glucose) | procedure are in the | | | | PDT | | results section. | + +--------+ + + + documented in this encounter Results POCT Hemoglobin A1c (03/31/2019 12:06 PM PDT) + +---------+ + + + | Component | Value | Ref Range | Performed | Pathologist | | | | | At | Signature | + +---------+ + + + | Hemoglobin | 6.0 (A) | 4.0 - 5.8 % | | | | A1C, POC | | | | | + +---------+ + + + + + | Specimen | + + | | + + documented in this encounter Visit Diagnoses + + | Diagnosis | + + | Acute otitis media of left ear with perforation - Primary | + + | Hearing loss of left ear, unspecified hearing loss type | + + | Essential hypertension Unspecified essential hypertension | + + | IFG (impaired fasting glucose) Impaired fasting glucose | + + | Mixed hyperlipidemia | + + | Neoplasm of uncertain behavior of skin | + + documented in this encounter
--- OUTSIDE RECORDS SUMMARY | ~2019-10-23 | XMS | Encounter Summary ---
Demographics + + + | Address | [address] | | | [place] [address] | + + + | Home Phone [...] Author | [facility] | | | and Rainerana | + + + | Organization | [facility] | | | and [...] [place], [place] | | | | | [address] | | + + + + + | [address]ena [address] | ECON | [place], [place] | | | | | [address] | | + + + + + Care Team Providers + +------+ + | Care Public Works Commissioner Name | Role | Phone | + +------+ + | Ivy Sun | PCP | | + +------+ + Reason for Visit + + + | Reason | Comments | + + + | Appointment | cancel appt on 16 | + + + Encounter Details +--------+ + + + + | Date | Type | Department | Care Team | Description | +--------+ + + + + | 01/30/ | Telephone | [facility] | Logan Wolf | Appointment (cancel | | 2015 | | CARDIOLOGY [address] | MD Missael [address] | appt on 02-01-16) | | | | [address], | [address] [place] | | | | | [place] [address] | [place] [address] | | | | | [phone] | [phone] | | | | | | | [...] [place] | | | | | | [id number] | | | | | | | | +--------+---------+ + + + documented as of this encounter Visit Diagnoses Not on filedocumented in this encounter"
--- OUTSIDE RECORDS SUMMARY | ~2019-10-23 | XMS | Encounter Summary ---
Demographics + + + | Address | [address] | | | [place] [address] | + + + | Home Phone [...] | [facility] | | | and Rainerana | + + + | Organization | [facility] | | | and [...] [place], [place] | | | | | [address] | | + + + + + | Jelena Hill | ECON | [place] | | | | | [address] | | + + + + + Care Team Providers + +------+ + | Care Motor Room Controller Name | Role | Phone | + [...] [facility] | | | | | Compression | Ivy L, | [address] | | | | | fracture of | PROFESSOR OF LITERACY [address] | [place], | | | | | thoracic | [address] | [place] | | | | | spine, | [place], | [address] | | | | | non-traumati | [place] [address] | Phone: | | | | | c, initial | Phone: | [phone] | | | | | encounter | [phone] | Fax: | | | | | ([facility]) | Fax: | [phone] | | | | | Procedures | [phone] | | | | | | MRI Thoracic | | | | | | | Spine wo | | | | | | | Contrast | | | +--------+--------+ + + + + Reason for Visit Diagnostic/Screening (Routine) +--------+--------+ + + + + | Status | Reason | Specialty | Diagnoses / | Referred By | Referred To | | | | | Procedures | Contact | Contact | +--------+--------+ + + + + | Closed | | Radiology | Diagnoses | Sun, | [facility] | | | | | Compression | Ivy Keating, | [address] | | | | | fracture of | PROF[employer] [address] | [place], | | | | | thoracic | [address] | [place] | | | | | spine, | [place], | [address] | | | | | non-traumati | [place] [address] | Phone: | | | | | c, initial | Phone: | [phone] | | | | | encounter | [phone] | Fax: | | | | | (HCC) | Fax: | [phone] | | | | | Procedures | [phone] | | | | | | MRI Thoracic | | | | | | | Spine wo | | | | | | | Contrast | | | +--------+--------+ + + + + Encounter Details +--------+ + + + + | Date | Type | Department | Care Team | Description | +--------+ + + + + | 08/24/ | Hospital | [facility] | Ivy Sun | Compression fracture | | 2015 | Encounter | [facility] MRI [address] | L, PROFESSOR OF [address]AC[address] | of thoracic spine, | | | | [address] [place], | [address] [place], [place] | non-traumatic, | | | | [place] [address] | [address] | initial encounter | | | | [phone] | | ([facility]) | +--------+ + + + + Social [...] | | Take 1 tablet by | 14 | 0 | 08/22/20 | | | sulfamethoxazole-tri | mouth 2 times daily | tablet | | 15 | 5 | | methoprim (BACTRIM | for 7 days. | | | | | | DS) 800-160 mg per | | | | | | | tabletIndications: | | | | | | | UTI (lower urinary | | | | | | | tract infection) | | | | | | + [...] [place] | | | | | | [id number] | | | | | | | | +--------+---------+ + + + documented as of this encounter Procedures + +--------+ + + + | Procedure Name | Priori | Date/Time | Associated Diagnosis | Comments | | | ty | | | | + +--------+ + + + | MRI THORACIC SPINE | Routin | 08/24/2015 | Compression | Results for this | | WO CONTRAST | e | 11:59 AM | fracture of thoracic | procedure are in the | | | | PDT | spine, | results section. | | | | | non-traumatic, | | | | | | initial encounter | | | | | | (HCC) | | + +--------+ + + + documented in this encounter Results MRI Thoracic Spine wo Contrast (08/24/2015 11:59 AM PDT) + + | Specimen | + + | | + + + + + | Narrative | Performed At | + + + | MRI THORACIC SPINE WO CONTRAST 08/24/2015 11:32 AM HISTORY: | [facility] | | compression fracture seen on x-ray mid to lower thoracic spine, back | [facility] | | pain. COMPARISON: None. PROTOCOL: Sagittal T2, sagittal T1, | [facility] | | sagittal STIR, axial T2. FINDINGS: Mild S-shaped scoliosis is | - IMAGING | | visualized of the thoracolumbar spine. There is mild thoracic | | | spondylosis. Mild anterolisthesis is present of T3 over T4. Mild | | | wedging of T8 is seen with about 20% height loss. A moderate amount of | | | marrow edema is seen with high signal on T2 and STIR imaging. No | | | destructive changes or mass lesions are seen to suggest pathologic | | | fracture. Modic type 1 changes are in the posterior, inferior aspect | | | of T7. Disc height are maintained. Imaged spinal cord shows | | | normal signal with no evidence for myelomalacia or mass lesions. | | | Tiny posterior disc bulges are present from T7-8 through T11-12 with | | | no significant stenosis. There is a 2.0 cm round structure with | | | high T2 signal in the left upper quadrant of the abdomen (image 25 on | | | the axial T2 lower sequence) that has the appearance of a cyst, | | | possibly from the left kidney. IMPRESSION - Mild compression | | | fracture of T8 with moderate marrow edema that is consistent with | | | recent occurrence. No destructive changes are seen to suggest a | | | pathologic fracture. Mild S-shaped scoliosis of the thoracolumbar | | | spine along with mild thoracic spondylosis. Round 2.0 cm | | | structure with high T2 signal in left upper quadrant of abdomen that | | | is only partially imaged. This has the appearance of a cyst, possibly | | | from the left kidney. If clinically indicated, ultrasound imaging can | | | be considered. Dictated and Signed by: Markie Baig MD | | | Electronically signed: 08/24/2015 12:40 PM | | + + + + + | Procedure Note | + + | Yohannes, Rad Results In - 08/24/2015 12:43 PM PDT MRI THORACIC SPINE WO CONTRAST | | 08/24/2015 11:32 AM HISTORY: compression fracture seen on x-ray mid to lower thoracic | | spine, backpain.COMPARISON: None.PROTOCOL: Sagittal T2, sagittal T1, sagittal STIR, | | axial T2.FINDINGS:Mild S-shaped scoliosis is visualized of the thoracolumbar spine. | | There is mildthoracic spondylosis. Mild anterolisthesis is present of T3 over T4. | | Mildwedging of T8 is seen with about 20% height loss. A moderate amount of marrowedema | | is seen with high signal on T2 and STIR imaging. No destructive changes ormass lesions | | are seen to suggest pathologic fracture. Modic type 1 changes arein the posterior, | | inferior aspect of T7.Disc height are maintained. Imaged spinal cord shows normal signal | | with no evidence for myelomalacia or masslesions.Tiny posterior disc bulges are present | | from T7-8 through T11-12 with nosignificant stenosis.There is a 2.0 cm round structure | | with high T2 signal in the left upper quadrantof the abdomen (image 25 on the axial T2 | | lower sequence) that has the appearanceof a cyst, possibly from the left | | kidney.IMPRESSION -Mild compression fracture of T8 with moderate marrow edema that is | | consistentwith recent occurrence. No destructive changes are seen to suggest a | | pathologicfracture.Mild S-shaped scoliosis of the thoracolumbar spine along with mild | | thoracicspondylosis.Round 2.0 cm structure with high T2 signal in left upper quadrant of | | abdomenthat is only partially imaged. This has the appearance of a cyst, possibly | | fromthe left kidney. If clinically indicated, ultrasound imaging can be | | considered.Dictated and Signed by: Markie Baig MD Electronically signed: 08/24/2015 | | 12:40 PM | | | |Tiny posterior disc bulges are present from T7-8 through T11-12 with no | |significant stenosis. | | | |There is a 2.0 cm round structure with high T2 signal in the left upper quadrant | |of the abdomen (image 25 on the axial T2 lower sequence) that has the appearance | |of a cyst, possibly from the left kidney. | | | |IMPRESSION - | |Mild compression fracture of T8 with moderate marrow edema that is consistent | |with recent occurrence. No destructive changes are seen to suggest a pathologic | |fracture. | | | |Mild S-shaped scoliosis of the thoracolumbar spine along with mild thoracic | |spondylosis. | | | |Round 2.0 cm structure with high T2 signal in left upper quadrant of abdomen | |that is only partially imaged. This has the appearance of a cyst, possibly from | |the left kidney. If clinically indicated, ultrasound imaging can be considered. | | | |Dictated and Signed by: Markie Baig MD | | Electronically signed: 08/24/2015 12:40 PM | + + + + + + + | Performing | Address | City/State/Zipcode | Phone Number | | Organization | | | | + + + + + | [facility] | [address] | [place] | [phone] | | [facility] | | [address] | | | - IMAGING | | | | + + + + + documented in this encounter Visit Diagnoses + + | Diagnosis | + + | Compression fracture of thoracic spine, non-traumatic, initial encounter (HCC) | + + documented in this encounter"
--- OUTSIDE RECORDS SUMMARY | ~2019-10-23 | XMS | Encounter Summary ---
Demographics + + + | Address | [address] | | | [place] [address] | + + + | Home Phone [...] + + + | Author | [facility] | | | and Rainerana | + + + | Organization | [facility] | | | and [...] [place], [place] | | | | | [address] | | + + + + + | Jelena Hill | ECON | [place] | | | | | [address] | | + + + + + Care Team Providers + +------+ + | Care Small Machine Bindery Operator Name | Role | Phone | + +------+ + | Ivy Sun | PCP | | + +------+ + Encounter Details +--------+ + + + + | Date | Type | Department | Care Team | Description | +--------+ + + + + | 11/10/ | Abstract | [facility] | Ivy Sun | | | 2019 | | [facility] | L, CITY MANAGER [address] | | | | | [address] | [address] [place] | | | | | [place] | [address] | | | | | [address] | | | | | | [phone] | | | +--------+ + + + [...] 2020 | Visit | | JUSTYN [place] | | | | | | [place] | | | | | | [address] | | | | | | | | +--------+---------+ + + + documented as of this encounter Procedures + +--------+ + + + | Procedure Name | Priori | Date/Time | Associated Diagnosis | Comments | | | ty | | | | + +--------+ + + + | ANGELINA EXTERNAL IMAGE | Routin | 10/03/2018 | | Results for this | | | e | | | procedure are in the | | | | | | results section. | + +--------+ + + + documented in this encounter Results ANGELINA External Image (10/03/2018) + + + + + + | Component | Value | Ref Range | Performed | Pathologist | | | | | At | Signature | + + + + + + | EXT | 1-Negative | | EXTERNAL | | | MAMMOGRAPHY | | | LAB | | + + + + + + + + | Resulting Agency Comment | + + | [facility] | + + + +---------+ + + | Performing | Address | City/State/Zipcode | Phone Number | | Organization | | | | + +---------+ + + | EXTERNAL LAB | | | | + +---------+ + + documented in this encounter Visit Diagnoses Not on filedocumented in this encounter"
--- OUTSIDE RECORDS SUMMARY | ~2019-10-23 | XMS | Encounter Summary ---
Demographics + + + | Address | [address] | | | [place] [address] | + + + | Home Phone | | + + + | Preferred Language | Unknown | + + + | Marital Status | Single | + + + | Adventist Affiliation | [id number] | + + + | Race | Unknown | + + + | Ethnic Group | Unknown | + + + Author + + + | Author | [facility] | | | and Rianerana | + + + | Organization | [facility] | | | and [...] [place], [place] | | | | | [address] | | + + + + + | Jelena Hill | ECON | [place] | | | | | [address] | | + + + + + Care Team Providers + +------+ + | Care Bucket Chucker Name | Role | Phone | + +------+ + | Ivy Sun | PCP | | + +------+ + Reason for Visit +--------+ + | Reason | Comments | +--------+ + | Other | Discuss MRI | +--------+ + Encounter Details +--------+---------+ + + + | Date | Type | Department | Care Team | Description | +--------+---------+ + + + | 01/03/ | Office | [facility] | Calderon Shaw, | Spondylolisthesis of | | 2017 | Visit | NEUROSURGERY [address] | PA-C [address] | lumbar region | | | | [address] | [address] [place] | (Primary Dx); Lumbar | | | | [place], [place] | [place] [address] | facet arthropathy; | | | | [address] | [phone] | Lumbar spinal | | | | [phone] | | stenosis | +--------+---------+ + + + Social History [...] + + + | Blood Pressure | 130/97 | 01/03/2017 10:35 AM | | | | | PST | | + + + + + | Pulse | 113 | 01/03/2017 10:35 AM | | | [...] + + + + | Weight | 132.9 kg (293 lb) | 01/03/2017 10:35 AM | | | | | PST | | + + + + + | Height | 170.2 cm (5' 7") | 01/03/2017 10:35 AM | | | | | PST | | + + + + + | Body Mass Index | 45.89 | 01/03/2017 10:35 AM | | | | | PST | | + + + + + documented in this encounter Patient Instructions Patient Instructions Calderon Shaw PA - 01/03/2017 11:10 AM HETAL'm recommending that U follow-up with Dr. Pryor to discuss possible surgery. From reviewing her MRI I suspect he will offer a L3-L5 fusion as it is labeled on your MRI. documented in this encounter Progress Notes Calderon Shaw PA - 01/03/2017 10:43 AM PSTFormatting of this note might be different f rom the original. JAVON Rowe [address] [facility], [address] [place], [place] [address] FAX: NEUROSURGERY FOLLOW-UP CHIEF COMPLAINT: Chief Complaint Patient presents with Other Discuss MRI HISTORY OF PRESENT ILLNESS: The patient is a 66 y.o. female that I saw in August 2016 fo r back pain. She returns and overall is doing poorly. The patient has not had a major garcía ge in their neurologic symptoms as much as possible as directed. The patient complains of f airly constant moderate to severe back pain. At her previous visits she did inform me that she does not have any significant leg symptoms. This continues to be the case at today's vi sit. Patient finally obtain the MRI of her lumbar spine is here today to review results and discuss treatment options. She does inform me that she is very limited in her quality of l steven and refrains from doing many simple activities with her friends as result of her constan t low back pain. PAST MEDICAL HISTORY: Past Medical History Diagnosis Date Encounter for [...] LVEF 69%. Prediabetes 12/09/2013 Cataract -2013 bilateral History of compression fracture of spine 08/17/2015 OAB (overactive bladder) 11/28/2016 PAST SURGICAL HISTORY: Past Surgical History Procedure Laterality Date Lumbar laminectomy 1991 Dr. Harris Gastroplasty 1986 Bunionectomy Right 1987 Toe surgery Endometrial biopsy 2002 Knee arthroscopy Left 2006 Total knee arthroplasty Left 07/15/13 Dilation and curettage of uterus 06/03/2014 HYSTEROSCOPY FRACTIONAL D&C; Laterality: N/A; Surgeon: Eleazar Mustafa, DO; Loca tion: [facility] CURRENT MEDICATIONS: Current Outpatient Prescriptions Medication Sig Dispense Refill [...] CAPSULES BY MOUTH NIGHTLY 270 capsule 1 PARoxetine (PAXIL) 40 MG tablet TAKE [...] No current facility-administered medications for this visit. ALLERGIES: No Known Allergies SOCIAL HISTORY: The patient reports that she quit smoking about 2 years ago. Her smoking use included Ciga rettes. She started smoking about 17 years ago. She has a 7.5 pack-year smoking history. She has never used smokeless tobacco. She reports that she drinks alcohol. She reports that she does not use illicit drugs. FAMILY HISTORY: Family History Problem Relation Age of Onset Alzheimer's disease Mother Heart attack Father Heart surgery Father bypass Stroke Father No Known Problems Brother Thyroid disease Sister Stroke Paternal Grandfather Heart disease Paternal Grandmother Heart disease Maternal Grandfather Stroke Maternal Grandfather Obesity Maternal Grandmother Other (see comment) Maternal Grandmother Pancreatitis Lung cancer Paternal Uncle Heart disease Paternal Uncle No Known Problems Paternal Aunt No Known Problems Paternal Aunt Diabetes Maternal Uncle Diabetes Maternal Aunt REVIEW OF SYSTEMS GENERALLY: No fever, no night sweats, no anemia, no fatigue, + recent profound weight georgina nges. EYES: No eye problems, + use of corrective lenses, no eye injury, no double vision, no bli ndness. EARS, NOSE, AND THROAT: No changes in taste or smell, + hearing difficulty, no ringing in the ears, no ear drainage, no dizziness, no voice changes, no difficulty swallowing, no sign ificant snoring, + sleep apnea, no sinus problems, no major dental work. NEUROLOGICALLY: Please see the review of systems discussed above in the history of present illness. In addition, the patient has awake with numbness and pain, muscle aching, change in walk, back injury, pain in neck, tremor/shaking. PSYCHIATRIC: + depression, + sleep disorders, + anxiety, no bipolar disorder, no psychotic episodes. CARDIOVASCULAR: No heart attacks, no heart murmur, no heart fluttering, no chest pain, no ankle swelling. LUNG DISEASE: No shortness of breath, no cough, no tuberculosis, no bloody cough, no asth ma, no emphysema/COPD. GASTROINTESTINAL: No bowel disease, no nausea or vomiting, no rectal bleeding, no constipa tion, no stool incontinence, no liver disease, no gallbladder disease, no abdominal pain, no ulcers. KIDNEY DISEASE: + urinary frequency, no painful or difficult urination, no incontinence, + bladder problems. ENDOCRINE: no diabetes, no thyroid disease, no osteopenia + osteoporosis, no breast draina ge. SKIN: No breast lumps, + skin changes, + rashes, no itches. HEMATOLOGIC/LYMPHATIC: No enlarged lymph nodes, no easy or unusual bleeding, no personal h istory of cancer. RHEUMATOLOGIC: No joint arthritis, no rheumatoid arthritis. INTERIM PHYSICAL EXAMINATION: Blood pressure 130/97, pulse 113, height 1.702 m (5' 7"), weight 132.904 kg (293 lb), not c urrently . Body mass index is 45.88 kg/(m^2). GENERAL: Lucie Miller is in no acute distress with unlabored respirations. HEENT: HEAD/FACE: Normocephalic and atraumatic. There are no areas of recent trauma. CHEST: Clear to ausculation without crackles or wheeze. HEART: Regular rate and rhythm without murmurs. SPINE: no gross deformity on inspection EXTREMITIES: No lower extremity edema. NEUROLOGICAL EXAMINATION: MENTAL STATUS: The patient is awake, alert, and oriented. She follows simple and complex commands. She speech is fluent, her comprehends speech well, and her repeats well. She has no apparent deficits with short or meterman memory. CRANIAL NERVES: Fundoscopic Exam: The optic disc is sharp. Normal vascular pattern is visualized II: Acuity is intact. Garcia are full to confrontation. III, IV, : The pupils are reactive. Extraocular movements are intact. No ptosis is note d. V: Facial sensation is intact and symmetric. VII: Facial movements are symmetric. VIII: Hearing is intact bilaterally. IX, X: The uvula and palate move appropriately. XI: Shrug is equal bilaterally. XII: Tongue protrusion is midline. MOTOR EXAM: (5 IS NORMAL) * Indicates pain limited MUSCLE/ MOVEMENT: RIGHT LEFT Deltoids 5 5 Biceps 5 5 Triceps 5 5 Wrist Flexion 5 5 Wrist Extension 5 5 Median Intrinsics 5 5 Ulnar Intrinsics 5 5 Library Attendant Strength 5 5 Hip Flexion 5 5 Hip Extension 5 5 Knee Flexion 5 5 Knee Extension 5 5 Dorsiflexion 5 5 Extensor Hallicus Longus 4+ 5 Plantarflexion 5 5 SENSORY EXAM: Sensory exam shows decreased sensation over the right L4 region of her calf and ankle. REFLEXES: (2 OR 2+ IS NORMAL) REFLEX: RIGHT LEFT BICEPS 2 2 BRACHIORADIALIS 2 2 TRICEPS 2 2 PATELLAR 2 2 ACHILLES 2 2 GORDON'S ABSENT ABSENT PLANTAR DOWNGOING DOWNGOING GAIT: Gait is steady. PERIPHERAL NERVE/MISC: Tinel is negative at the wrists and elbows bilaterally. Phalen is negative. Straight leg raise is negative bilaterally. Adriel's test of the hips is negative bilaterally. RADIOGRAPHIC REVIEW: The patient's imaging was reviewed in detail with the patient today during the visit. The MRI from August 2016 shows diffuse lumbar spondylosis with most significant levels being L 3-L4 and L4-L5. There is also notable spondylolisthesis at L4-L5 resulting in fairly severe spinal stenosis. Moderate spinal stenosis is appreciated at L3-L4. Patient has mild scoli osis. There is moderately severe left-sided L4-L5 foraminal stenosis. From the labeling on the MRI L5-S1 appears to be autofused. Plain x-ray with flexion and extension shows spondylolisthesis at L4-L5. This does not red uce the flexion extension. There is augmentation to the superior endplate of L4. I suspect that this is more of a Schmorl's node injury than a compression fracture. However, patient does have a history of multiple compression fractures. The STIR image does not show any ac tive metabolic activity within the L4 body. ASSESSMENT: Encounter Diagnoses Name Primary? Spondylolisthesis of lumbar region Yes Lumbar facet arthropathy Lumbar spinal stenosis Past Medical History Diagnosis Date Encounter for [...] LVEF 69%. Prediabetes 12/09/2013 Cataract -2013 bilateral History of compression fracture of spine 08/17/2015 OAB (overactive bladder) 11/28/2016 PLAN: It was a pleasure visiting with this patient again today, and as always I greatly appreciat e the consideration and referral. Overall, the patient is not doing well. I had a lengthy discussion with the patient about her options for care including surgical a nd non-surgical options. The patient decided that their best option based on my opinion was to meet with Dr. Pryor and discuss potential surgical intervention. I suspect she is havi ng more symptoms in her legs and she appreciates. Dr. Pryor will make final and also recom mendations I suspect he will offer a L3-L5 fusion.. In the meantime, patient can continue to moderate her activities as tolerated. If there ar e any questions I will see her on an as-needed basis. Otherwise, we will proceed as recomme nded. ELECTRONICALLY SIGNED BY: JAVON Rowe, 01/03/2017 12:42 documented in this encounter Plan of Treatment [...] + | Diagnosis | + + | Spondylolisthesis of lumbar region - Primary Acquired spondylolisthesis | + + | Lumbar facet arthropathy Lumbosacral spondylosis without myelopathy | + + | Lumbar spinal stenosis Spinal stenosis, lumbar region, without neurogenic | | claudication | + + documented in this encounter
--- OUTSIDE RECORDS SUMMARY | ~2019-10-23 | XMS | Clinical Summary ---
Demographics + + + | Address | [address] | | | [place] [address] | + + + | Home Phone | | + + + | Preferred Language | Unknown | + + + | Marital Status | Single | + + + | Oriental Orthodox Affiliation | Unknown | + + + | Race | White | + + + | Ethnic Group | Not or | + + + Author + + + | Author | [facility] | + + + | Organization | [facility] | + + + | Address | Unknown | + + + | Phone | Unavailable | + + + Support + + + + + | Name | Relationship | Address | Phone | + + + + + | Aleks Card | ECON | [address] | | | | | [place] | | | | | [address] | | + + + + + Care Team Providers + +------+ + | Care Chief Construction Inspector Name | Role | Phone | + +------+ + PCP | Unavailable | + +------+ + Source Comments AL is fully live on both [facility] and [facility] In[facility] Allergies No Known Allergies Medications + + + +---------+------+------+-------+ | Medication | Sig | Dispensed | Refills | Star | End | Statu | | | | | | t | Date | s | | | | | | Date | | | + + + +---------+------+------+-------+ | paroxetine (PAXIL) | Take 40 mg by mouth | | 0 | | | Activ | | 40 mg Oral Tablet | once daily. | | | | | e | + + + +---------+------+------+-------+ | ergocalciferol | Take 50,000 Units by | | 0 | | | Activ | | (VITAMIN D) 50,000 | mouth every seven | | | | | e | | unit Oral Capsule | days. | | | | | | + + + +---------+------+------+-------+ | pramipexole | Take by mouth. 1-3 | 90 days | 3 | 06/3 | | Activ | | (MIRAPEX) 1 mg Oral | tabs at [facility] prn | | | 0/20 | | e | | Tablet | restless leg | | | 09 | | | + + + +---------+------+------+-------+ | tramadol (ULTRAM) | Take 1 Tab by mouth. | 20 | 1 | 06/3 | | Activ | | 50 mg Oral Tablet | BID for | | | 0/20 | | e | | | pain--interaction | | | 09 | | | | | noted with her ssri | | | | | | + + + +---------+------+------+-------+ Active Problems + + + | Problem | Noted Date | + + + | Gastric Bypass Status for Obesity-staple 1985 | 04/26/2009 | + + + | Restless Leg Syndrome QD MIRAPEX | 04/26/2009 | + + + | Hypovitaminosis D--- ON 50 UNITS. A WEEK. | 04/26/2009 | + + + | Hypokalemia--- 2.? NOW OFF JENIFER AND HCTZ. 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 have afo | 04/26/2009 | | if indicated | | + + + | Rotator Cuff Tear- presumptive R | 04/26/2009 | + + + | Essential Hypertension--OFF MEDS FOLLOW | 04/26/2009 | + + + + + | Overview: 12/18/12 Inactive Dx replaced with clinically | | equivalent record | + + Family History + + +------+ + | Medical History | Relation | Name | Comments | + + +------+ + | Other | Father | | 82 DIAB CAD BYPASS ? PC | + + +------+ + | Other | Mother | | ALHZ AT 77 and complications | + + +------+ + | Other | Sister | | thyroid niddm mi at 58 bro well at 53 | + + +------+ + + +------+--------+ + | Relation | Name | Status | Comments | + +------+--------+ + | Father | | | | + +------+--------+ + | Mother | | | | + +------+--------+ + | Sister | | | | + +------+--------+ + Social History + +-------+ +--------+------+ | [...] recent travel history available. | + + Last Filed Vital Signs + + + [...] | | + + + + + Plan of Treatment + + + + + | Health Maintenance | Due Date | Last Done | Comments | + + + + + | Pneumococcal | | | | | vaccination (1 of 2 | 7 | | | | - PCV13) | | | | + + + + + | Influenza (Flu) | | | | | vaccination (#1) | 9 | | | + + + + + Results Not on filefrom Last 3 Months Insurance + +--------+ +--------+ + +------+ | Payer | Benefi | Subscriber | Effect | Phone | Address | Type | | | t Plan | ID | venancio | | | | | | / | | Dates | | | | | | Group | | | | | | + +--------+ +--------+ + +------+ | [facility] | PHP | [id number] | 01/27/20 | [phone] | [address] | PPO | | | [address] | | 11-Pre | 0 | [address] | | | [address] | | sent | | [place], | | | | [place] | | | | [place] [address] | | + +--------+ +--------+ + +------+ + +--------+ +--------+ + + | Guarantor Name | Accoun | Relation to | Date | Phone | Billing Address | | | t Type | Patient | of | | | | | | | | | | + +--------+ +--------+ + + | Lucie Miller | Person | Self | [birth year] | [address] | | | al/Fernie | | 2 | [phone] | [place] | | | sean | | | 9 (Home) | [address] | + +--------+ +--------+ + + Advance Directives + + + + + | Type | Date Recorded | Patient | Explanation | | | | Housekeeping Worker | | + + + + + | Advance | | | | | Directives and | | | | | Living Will | | | | + + + + + | Power of | | | | | Stemhole Borer And Topper | | | | + + + + +
--- OUTSIDE RECORDS SUMMARY | ~2019-10-23 | XMS | Encounter Summary ---
Demographics + + + | Address | [address] | | | [place] [address] | + + + | Home Phone | | + + + | Preferred Language | Unknown | + + + | Marital Status | Single | + + + | Baptist Affiliation | 1077 | + + + | Race | Unknown | + + + | Ethnic Group | Unknown | + + + Author + + + | Author | [facility] | | | and Rainerana | + + + | Organization | [facility] | | [...] [place], [place] | | | | | [address] | | + + + + + | Jelena Hill | ECON | [place], [place] | | | | | [address] | | + + + + + Care Team Providers + +------+ + | Care Livestock Buyer Name | Role | Phone | + +------+ + PCP | Unavailable | + +------+ + Encounter Details +--------+ + + + + | Date | Type | Department | Care Team | Description | +--------+ + + + + | 08/16/ | Hospital | [facility] | Ivy Sun | | | 2008 | Encounter | MED CTR LABORATORY | Rishabh, JUSTYN [address] | | | | | [address] [place] | [place] [place], [place] | | | | | [place], [place] | [address] | | | | | [address] | | | | | | [phone] | | | +--------+ + + + [...] [place] | | | | | | [phone] | | | | | | | | +--------+---------+ + + + documented as of this encounter Visit Diagnoses Not on filedocumented in this encounter"
--- OUTSIDE RECORDS SUMMARY | ~2019-10-23 | XMS | Encounter Summary ---
Demographics + + + | Address | [address] | | | [place] [address] | + + + | Home Phone | | + + + | Preferred Language | Unknown | + + + | Marital Status | Single | + + + | Druze Affiliation | 1077 | + + + | Race | Unknown | + + + | Ethnic Group | Unknown | + + + Author + + + | Author | [facility] | | | and Rainerana | + + + | Organization | [facility] | | | and Rainerana [...] [place], [place] | | | | | [address] | | + + + + + | Jelena Hill | ECON | [place], [place] | | | | | [address] | | + + + + + Care Team Providers + +------+ + | Care Paintings Conservator Name | Role | Phone | + +------+ + | Ivy Sun | PCP | | + +------+ + Reason for Visit +--------+ + | Reason | Comments | +--------+ + | LABS | | +--------+ + Encounter Details +--------+ + + + + | Date | Type | Department | Care Team | Description | +--------+ + + + + | 04/03/ | Telephone | [facility] | Ivy Sun | NGUYEN | | 2016 | | MEDICINE [address] | Rishabh, JUSTYN [address] | | | | | Street [facility] | [place], [place] | | | | | [place] [address] | [address] | | | | | [phone] | | | +--------+ + + + [...] 11/23/ | Office | Family Medicine | [facility] | | | 2019 | Visit | | [address] | | | | | | [place] | | | | | | [address] | | | | | | | | +--------+---------+ + + + documented as of this encounter Results Microalbumin/Creatinine Ratio, Urine (08/28/2016 [...] + | [facility] | [address] | [place] | [phone] | | [facility] | | [address] | | | - LABORATORY | | [...] | | | Yellow, Straw | [facility] | | | | [...] - 1.030 | [facility] | | | Sharon | | | [facility] | | [...] (A) | 0 - 2 /LPF | [facility] | | | MARYAM UA | | | [facility] | | [...] [address] | [place] | [phone] | | [facility] | | [address] | | | - LABORATORY | | [...] | | | Average | | | [facility] | | | Glucose | | [...] [address] | [place] | [phone] | | [facility] | | [address] | | | - LABORATORY | | [...] 17 | 7 - 18 mg/dL | [facility] | | | | | | [facility] | | | | | | MEDICAL | | | | | | CENTER - | | | | | | LABORATORY | | + + + + + + | Creatinine | 1.04 | 0.60 - 1.30 | [facility] | | | | | mg/dL | [facility] | | | | | | MEDICAL | | | | | | CENTER - | | | | | | LABORATORY | | + + + + + + | eGFR if not | 53 (L)Comment: | >=60 | [facility] | | | | GLOMERULAR FILTRATION | mL/min/1.73m2 | [facility] | | | GHANAIAN | RATE,ESTIMATED | | MEDICAL | | | | mL/min/1.20l6Dlpu than | | CENTER - | | [...] + | [facility] | [address] | [place] | [phone] | | [facility] | | [address] | | | - LABORATORY | | | | + + + + + Lipid Panel (08/28/2016 8:29 AM PDT) + + + + + + | Component | Value | Ref Range | Performed | Pathologist | | | | | At | Signature | + + + + + + | Triglycerid | 87 | 35 - 160 mg/dL | [facility] | | | es | | | [...] HDL | 28 - 83 mg/dL | [facility] | | | | Reference Range as [...] | | Ratio | | | [facility] | | | | | | MEDICAL | | | | | | CENTER - | | | | | | LABORATORY | | + + + + + + | LDL, | 90 | <=130 mg/dL | [facility] | | | Calculated | | | [...] ST. | [address] | [place] | [phone] | | [facility] | | [address] | | | - LABORATORY | | | | + + + + + documented in this encounter Visit Diagnoses + + | Diagnosis | + + | Hyperlipidemia, unspecified hyperlipidemia type - Primary | + + | Essential hypertension with goal blood pressure less than 130/80 | + + | Prediabetes Other abnormal glucose | + + documented in this encounter"
--- OUTSIDE RECORDS SUMMARY | ~2019-10-23 | XMS | Encounter Summary ---
Demographics + + + | Address | [address] | | | [place] [address] | + + + | Home Phone [...] + | Author | [facility] | | | and Rainerana | + + + | Organization | [facility] | | [...] [place], [place] | | | | | [address] | | + + + + + | Jelena Hill | ECON | [place] | | | | | [address] | | + + + + + Care Team Providers + +------+ + | Care Merry Go Round Operator Name | Role | Phone | [...] + | 07/23/ | Refill | [facility] | Ivy Sun | Medication Refill | | 2011 | | MEDICINE [place] | Rishabh, JUSTYN [address] | | | | | [address] | [place] [place] | | | | | [place] | [address] | | | | | [address] | | | | | | [phone] | | | +--------+--------+ + + + [...] | | | | | [place] | | | | | | [phone] | | | | | | | | +--------+---------+ + + + documented as of this encounter Visit Diagnoses + + | Diagnosis | + + | Hypertension Unspecified essential hypertension | + + | Insomnia Insomnia, unspecified | + + | Hyperlipidemia Other and unspecified hyperlipidemia | + + documented in this encounter"
--- OUTSIDE RECORDS SUMMARY | ~2019-10-23 | XMS | Encounter Summary ---
Demographics + + + | Address | [address] | | | [place] [address] | + + + | Home Phone [...] + + + | Author | [facility] | | | and Rainerana | + + + | Organization | [facility] | [...] [place], [place] | | | | | [address] | | + + + + + | Jelena Hill | ECON | [place] | | | | | [address] | | + + + + + Care Team Providers + +------+ + | Care Fibreglass Gun Hand Name | Role | Phone | + +------+ + | Ivy Sun | PCP | | + +------+ + Reason for Visit + + + | Reason | Comments | + + + | Medication Prior | Paroxetine | | Authorization | | + + + Encounter Details +--------+ + + + + | Date | Type | Department | Care Team | Description | +--------+ + + + + | 01/01/ | Telephone | [facility] | Ivy Sun | Medication Prior | | 2018 | | MEDICINE [place] | JUSTYN [address] | Authorization | | | | [address] | [place] [place], [place] | (Paroxetine) | | | | [place], [place] | [address] | | | | | [address] | | | | | | [phone] | | | +--------+ + + + [...] [place] | | | | | | [phone] | | | | | | | | +--------+---------+ + + + documented as of this encounter Visit Diagnoses Not on filedocumented in this encounter"
--- OUTSIDE RECORDS SUMMARY | ~2019-10-23 | XMS | Encounter Summary ---
Demographics + + + | Address | [address] | | | [place] [address] | + + + | Home Phone [...] | [facility] | | | and Rainerana | + + + | Organization | [facility] [...] [place], [place] | | | | | [address] | | + + + + + | Jelena Hill | ECON | [place] | | | | | [address] | | + + + + + Care Team Providers + +------+ + | Care Crystal Lapper Name | Role | Phone | + +------+ + | Ivy Sun | PCP | | + +------+ + Encounter Details +--------+ + + + + | Date | Type | Department | Care Team | Description | +--------+ + + + + | 08/24/ | Abstract | [facility] | Ivy Sun | | | 2014 | | MEDICINE [place] | L, CONTENT DESIGNER [address] | | | | | [address] | [address] [place] | | | | | [place] | [address] | | | | | [address] | | | | | | [phone] | | | +--------+ + + + [...] | | | | | [place] | | | | | | [address] | | | | | | | | +--------+---------+ + + + documented as of this encounter Procedures + +--------+ + + + | Procedure Name | Priori | Date/Time | Associated Diagnosis | Comments | | | ty | | | | + +--------+ + + + | EXTERNAL LAB: MOSES | Routin | 08/19/2015 | | Results for this | | | e | | | procedure are in the | | | | | | results section. | + +--------+ + + + | EXTERNAL LAB: | Routin | 08/19/2015 | | Results for this | | GLUCOSE | e | | | procedure are in the | | | | | | results section. | + +--------+ + + + | EXTERNAL LAB: ALT | Routin | 08/19/2015 | | Results for this | | | e | | | procedure are in the | | | | | | results section. | + +--------+ + + + | EXTERNAL LAB: AST | Routin | 08/19/2015 | | Results for this | | | e | | | procedure are in the | | | | | | results section. | + +--------+ + + + | EXTERNAL LAB: | Routin | 08/19/2015 | | Results for this | | ALKALINE PHOSPHATASE | e | | | procedure are in the | | | | | | results section. | + +--------+ + + + | EXTERNAL LAB: | Routin | 08/19/2015 | | Results for this | | BILIRUBIN, TOTAL | e | | | procedure are in the | | | | | | results section. | + +--------+ + + + | EXTERNAL LAB: | Routin | 08/19/2015 | | Results for this | | ALBUMIN | e | | | procedure are in the | | | | | | results section. | + +--------+ + + + | EXTERNAL LAB: | Routin | 08/19/2015 | | Results for this | | PROTEIN, TOTAL | e | | | procedure are in the | | | | | | results section. | + +--------+ + + + | EXTERNAL LAB: | Routin | 08/19/2015 | | Results for this | | CALCIUM | e | | | procedure are in the | | | | | | results section. | + +--------+ + + + | EXTERNAL LAB: CARBON | Routin | 08/19/2015 | | Results for this | | DIOXIDE | e | | | procedure are in the | | | | | | results section. | + +--------+ + + + | EXTERNAL LAB: | Routin | 08/19/2015 | | Results for this | | CHLORIDE | e | | | procedure are in the | | | | | | results section. | + +--------+ + + + | EXTERNAL LAB: | Routin | 08/19/2015 | | Results for this | | POTASSIUM | e | | | procedure are in the | | | | | | results section. | + +--------+ + + + | EXTERNAL LAB: SODIUM | Routin | 08/19/2015 | | Results for this | | | e | | | procedure are in the | | | | | | results section. | + +--------+ + + + | EXTERNAL LAB: | Routin | 08/19/2015 | | Results for this | | URINALYSIS | e | | | procedure are in the | | | | | | results section. | + +--------+ + + + | EXTERNAL LAB: | Routin | 08/19/2015 | | Results for this | | TRIGLYCERIDES | e | | | procedure are in the | | | | | | results section. | + +--------+ + + + | EXTERNAL LAB: | Routin | 08/19/2015 | | Results for this | | CHOLESTEROL, HDL | e | | | procedure are in the | | | | | | results section. | + +--------+ + + + | EXTERNAL LAB: | Routin | 08/19/2015 | | Results for this | | CHOLESTEROL, TOTAL | e | | | procedure are in the | | | | | | results section. | + +--------+ + + + | EXTERNAL LAB: | Routin | 08/19/2015 | | Results for this | | CHOLESTEROL, LDL | e | | | procedure are in the | | | | | | results section. | + +--------+ + + + | EXTERNAL LAB: | Routin | 08/19/2015 | | Results for this | | MICROALBUMIN/CREATIN | e | | | procedure are in the | | INE RATIO, URINE | | | | results section. | + +--------+ + + + | EXTERNAL LAB: EGFR | Routin | 08/19/2015 | | Results for this | | | e | | | procedure are in the | | | | | | results section. | + +--------+ + + + | EXTERNAL LAB: | Routin | 08/19/2015 | | Results for this | | CREATININE | e | | | procedure are in the | | | | | | results section. | + +--------+ + + + | HEMOGLOBIN A1C | Routin | 08/19/2015 | | Results for this | | | e | | | procedure are in the | | | | | | results section. | + +--------+ + + + documented in this encounter Results Hemoglobin A1C (08/19/2015) + +-------+ + + + | Component | Value | Ref Range | Performed | Pathologist | | | | | At | Signature | + +-------+ + + + | Hemoglobin | 5.9 | | | | | A1c, | | | | | | external | | | | | + +-------+ + + + + + | Specimen | + + | Blood specimen | | (specimen) | + + External Lab: BUN (08/19/2015) + +-------+ + + + | Component | Value | Ref Range | Performed | Pathologist | | | | | At | Signature | + +-------+ + + + | BUN, | 17 | | | | | External | | | | | + +-------+ + + + External Lab: Glucose (08/19/2015) + +-------+ + + + | Component | Value | Ref Range | Performed | Pathologist | | | | | At | Signature | + +-------+ + + + | Glucose, | 99 | | | | | External | | | | | + +-------+ + + + External Lab: ALT (08/19/2015) + +-------+ + + + | Component | Value | Ref Range | Performed | Pathologist | | | | | At | Signature | + +-------+ + + + | ALT, | 33 | | | | | External | | | | | + +-------+ + + + External Lab: AST (08/19/2015) + +-------+ + + + | Component | Value | Ref Range | Performed | Pathologist | | | | | At | Signature | + +-------+ + + + | AST, | 35 | | | | | External | | | | | + +-------+ + + + External Lab: Alkaline Phosphatase (08/19/2015) + +-------+ + + + | Component | Value | Ref Range | Performed | Pathologist | | | | | At | Signature | + +-------+ + + + | ALP, | 111 | | | | | External | | | | | + +-------+ + + + External Lab: Bilirubin, Total (08/19/2015) + +-------+ + + + | Component | Value | Ref Range | Performed | Pathologist | | | | | At | Signature | + +-------+ + + + | Bilirubin, | 0.4 | | | | | Total, | | | | | | External | | | | | + +-------+ + + + External Lab: Albumin (08/19/2015) + +-------+ + + + | Component | Value | Ref Range | Performed | Pathologist | | | | | At | Signature | + +-------+ + + + | Albumin, | 3.6 | | | | | External | | | | | + +-------+ + + + External Lab: Protein, Total (08/19/2015) + +-------+ + + + | Component | Value | Ref Range | Performed | Pathologist | | | | | At | Signature | + +-------+ + + + | Protein, | 6.5 | | | | | Total, | | | | | | External | | | | | + +-------+ + + + External Lab: Calcium (08/19/2015) + +-------+ + + + | Component | Value | Ref Range | Performed | Pathologist | | | | | At | Signature | + +-------+ + + + | Calcium, | 9.0 | | | | | External | | | | | + +-------+ + + + External Lab: Carbon Dioxide (08/19/2015) + +-------+ + + + | Component | Value | Ref Range | Performed | Pathologist | | | | | At | Signature | + +-------+ + + + | Carbon | 23 | | | | | Dioxide, | | | | | | External | | | | | + +-------+ + + + External Lab: Chloride (08/19/2015) + +-------+ + + + | Component | Value | Ref Range | Performed | Pathologist | | | | | At | Signature | + +-------+ + + + | Chloride, | 107 | | | | | External | | | | | + +-------+ + + + External Lab: Potassium (08/19/2015) + +-------+ + + + | Component | Value | Ref Range | Performed | Pathologist | | | | | At | Signature | + +-------+ + + + | Potassium, | 4.2 | | | | | External | | | | | + +-------+ + + + External Lab: Sodium (08/19/2015) + +-------+ + + + | Component | Value | Ref Range | Performed | Pathologist | | | | | At | Signature | + +-------+ + + + | Sodium, | 141 | | | | | External | | | | | + +-------+ + + + External Lab: Urinalysis (08/19/2015) + +--------+ + + + | Component | Value | Ref Range | Performed | Pathologist | | | | | At | Signature | + +--------+ + + + | UA Blood, | 250 | | | | | External | | | | | + +--------+ + + + | UA Glucose, | Normal | | | | | External | | | | | + +--------+ + + + | UA Ketones, | 5 | | | | | External | | | | | + +--------+ + + + | UA Ph, | 5 | | | | | External | | | | | + +--------+ + + + | UA | 150 | | | | | Proteins, | | | | | | External | | | | | + +--------+ + + + | UA RBC, | >50 | | | | | External | | | | | + +--------+ + + + | UA Specific | 1.029 | | | | | Buda, | | | | | | External | | | | | + +--------+ + + + | UA | 500 | | | | | Leukocyte | | | | | | Esterase, | | | | | | External | | | | | + +--------+ + + + External Lab: Triglycerides (08/19/2015) + +-------+ + + + | Component | Value | Ref Range | Performed | Pathologist | | | | | At | Signature | + +-------+ + + + | Triglycerid | 94 | | | | | es, | | | | | | External | | | | | + +-------+ + + + + + | Specimen | + + | Blood specimen | | (specimen) | + + External Lab: Cholesterol, HDL (08/19/2015) + +-------+ + + + | Component | Value | Ref Range | Performed | Pathologist | | | | | At | Signature | + +-------+ + + + | HDL | 59.0 | mg/dl | | | | Cholesterol | | | | | | , External | | | | | + +-------+ + + + + + | Specimen | + + | Blood specimen | | (specimen) | + + External Lab: Cholesterol, Total (08/19/2015) + +-------+ + + + | Component | Value | Ref Range | Performed | Pathologist | | | | | At | Signature | + +-------+ + + + | Cholesterol | 148 | mg/dl | | | | , Total, | | | | | | External | | | | | + +-------+ + + + + + | Specimen | + + | Blood specimen | | (specimen) | + + External Lab: Cholesterol, LDL (08/19/2015) + +-------+ + + + | Component | Value | Ref Range | Performed | Pathologist | | | | | At | Signature | + +-------+ + + + | LDL | 70 | | | | | Cholesterol | | | | | | , Direct, | | | | | | External | | | | | + +-------+ + + + + + | Specimen | + + | Blood specimen | | (specimen) | + + External Lab: Microalbumin/Creatinine Ratio, Urine (08/19/2015) + +-------+ + + + | Component | Value | Ref Range | Performed | Pathologist | | | | | At | Signature | + +-------+ + + + | Microalbumi | 327.3 | | | | | n/Creatinin | | | | | | e Ratio, | | | | | | External | | | | | + +-------+ + + + + + | Specimen | + + | Blood specimen | | (specimen) | + + External Lab: eGFR (08/19/2015) + +-------+ + + + | Component | Value | Ref Range | Performed | Pathologist | | | | | At | Signature | + +-------+ + + + | eGFR, | 72 | | | | | External | | | | | + +-------+ + + + + + | Specimen | + + | Blood specimen | | (specimen) | + + External Lab: Creatinine (08/19/2015) + +-------+ + + + | Component | Value | Ref Range | Performed | Pathologist | | | | | At | Signature | + +-------+ + + + | Creatinine, | 0.80 | | | | | External | | | | | + +-------+ + + + + + | Specimen | + + | Blood specimen | | (specimen) | + + documented in this encounter Visit Diagnoses Not on filedocumented in this encounter"
--- OUTSIDE RECORDS SUMMARY | ~2019-10-23 | XMS | Encounter Summary ---
Demographics + + + | Address | [address] | | | [place] [address] | + + + | Home Phone | | + + + | Preferred Language | Unknown | + + + | Marital Status | Single | + + + | Confucianist Affiliation | 1077 | + + + | Race | Unknown | + + + | Ethnic Group | Unknown | + + + Author + + + | Author | [facility] | | | and Rainerana | + + + | Organization | [facility] | | | and Rainerana [...] [place], [place] | | | | | [address] | | + + + + + | Jelena Hill | ECON | [place] | | | | | [address] | | + + + + + Care Team Providers + +------+ + | Care Polysomnography Technologist Name | Role | Phone | + +------+ + | Ivy Sun | PCP | | + +------+ + Encounter Details +--------+ + + + + | Date | Type | Department | Care Team | Description | +--------+ + + + + | 06/16/ | Hospital | [facility] | Ivy Sun | | | 2011 | Encounter | MED CTR XRAY [address] | L, SUPERVISOR INSTRUMENT REPAIR [address] | | | | | [place] | [address] [place], [place] | | | | | [place] [address] | [address] | | | | | [phone] | | | +--------+ + + + [...] | | 11 | 2 | | [address] UNITS capsule | mouth once weekly | [...] [place] | | | | | | [id number] | | | | | | | [...] Performed At | + + + | [facility] | [place] | | [address] [facility] | [facility] | | E C H O C A R D | DIAG IMG | | I O G R A P H Y R E P O R T HEIGHT: 5'7" | | | WEIGHT: 260# DRESS FINISHER: JW REFERRING DR: RAVI | | | [...] | | 16:18 Transcribed Date/Time: 06/16/2012 18:28 Head Of Training And Development: | | | <Electronically Signed by Brianna Curiel MD [facility]> | | | 06/17/12 0846 | | + + + + + | Procedure Note | + + | Yohannes, Rad Conversion - 12/04/2013 5:53 PM [facility] | | Diagnostic Imaging Department | | [address] | | | | | | | | E C H O C A R D I O G R A P H Y R E P O R T | | | | | | HEIGHT: 5'7" WEIGHT: 260# DRESS FINISHER: FLO | | REFERRING DR: RAVI JEAN-BAPTISTE [...] | Transcribed Date/Time: 06/16/2012 18:28 | | Head Of Training And Development: | | <Electronically Signed by Brainna Curiel MD [facility]> 06/17/12 0846 | + + + [...]
--- OUTSIDE RECORDS SUMMARY | ~2019-10-23 | XMS | Encounter Summary ---
Demographics + + + | Address | [address] | | | [place] [address] | + + + | Home Phone [...] + | Author | [facility] | | | and Rainerana | + + + | Organization | [facility] | | | and Rainerana [...] [place], [place] | | | | | [address] | | + + + + + | Jelena Hill | ECON | [place] | | | | | [address] | | + + + + + Care Team Providers + +------+ + | Care Moto Mix Operator Name | Role | Phone | [...] Description | +--------+--------+ + + + | 03/16/ | Refill | [facility] | Ivy Sun | Medication Refill | | 2013 | | MEDICINE [place] | Rishabh, JUSTYN [address] | | | | | [address] | [place] | | | | | [place] | [address] | | | | | [address] | | | | | | [phone] | | | +--------+--------+ + + + [...] [place] | | | | | | [address] | | | | | | | | +--------+---------+ + + + documented as of this encounter Visit Diagnoses Not on filedocumented in this encounter"
--- OUTSIDE RECORDS SUMMARY | ~2019-10-23 | XMS | Encounter Summary ---
Demographics + + + | Address | [address] | | | [place] [address] | + + + | Home Phone | | + + + | Preferred Language | Unknown | + + + | Marital Status | Single | + + + | Mosque Affiliation | 1077 | + + + | Race | Unknown | + + + | Ethnic Group | Unknown | + + + Author + + + | Author | [facility] | | | and Rainerana | + + + | Organization | [facility] | | | and Rainerana [...] [place], [place] | | | | | [address] | | + + + + + | Jelena Hill | ECON | [place] | | | | | [address] | | + + + + + Care Team Providers + +------+ + | Care Gasfitter Name | Role | Phone | + +------+ + | Ivy Sun | PCP | | + +------+ + Reason for Visit + + + | Reason | Comments | + + + | Imaging Only | | + + + Encounter Details +--------+ + + + + | Date | Type | Department | Care Team | Description | +--------+ + + + + | 10/27/ | Telephone | [facility] | Ivy Sun | Imaging Only | | 2018 | | MEDICINE [place] | Rishabh, JUSTYN [address] | | | | | [address] | [place] | | | | | [place] | [address] | | | | | [address] | | | | | | [phone] | | | +--------+ + + + [...]
--- OUTSIDE RECORDS SUMMARY | ~2019-10-23 | XMS | Encounter Summary ---
Demographics + + + | Address | [address] | | | [place] [address] | + + + | Home Phone | | + + + | Preferred Language | Unknown | + + + | Marital Status | Single | + + + | Hoahaoism Affiliation | 1077 | + + + | Race | Unknown | + + + | Ethnic Group | Unknown | + + + Author + + + | Author | [facility] | | | and Rainerana | + + + | Organization | [facility] | | | and Rainerana [...] [place], [place] | | | | | [address] | | + + + + + | Jelena Hill | ECON | [place] | | | | | [address] | | + + + + + Care Team Providers + +------+ + | Care Cost Accounting Analyst Name | Role | Phone | [...] Description | +--------+---------+ + + + | 05/06/ | Office | [facility] | Hiren Mai PA | KAMERON on CPAP (Primary | | 2018 | Visit | SLEEP DISORDER [address] | [address] | Dx) | | | | [address] [place] | [place] | | | | | [place] [address] | [address] | | | | | [phone] | | | +--------+---------+ + + + [...] + + + | Blood Pressure | 110/72 | 05/06/2018 10:13 AM | | | | | PDT | | + + + + + | Pulse | 117 | 05/06/2018 10:13 AM | | | | | PDT | | + + + + + | Temperature | - | - | | + + + + + | Respiratory Rate | 16 | 05/06/2018 10:13 AM | | | | | PDT | | + + + + + | Oxygen Saturation | 95% | 05/06/2018 10:13 AM | | | | | PDT | | + + + + + | Inhaled Oxygen | - | - | | | Concentration | | | | + + + + + | Weight | 132.7 kg (292 lb 8.8 | 05/06/2018 10:13 AM | | | | oz) | PDT | | + + + + + | Height | 170.2 cm (5' 7") | 05/06/2018 10:13 AM | | | | | PDT | | + + + + + | Body Mass Index | 45.82 | 05/06/2018 10:13 AM | | | | | PDT | | + + + + + documented in this encounter Patient Instructions Patient Instructions Corning, Hiren D, PA - 05/06/2018 10:00 AM PDT1. Use your CPAP 100% of t he time you are asleep. 2. Keep a consistent wake time and adjust your bed time according to the amount of sleep y ou need. 3. If you are not able to get to sleep, go to a dark, quiet room and sit, doing nothing, u ntil you become sleepy. Then to go back to bed with your CPAP. Repeat this as many times a s necessary. 4. Go to bed at 1am and wake at 8am. Adjust these times as needed, but keep them consiste nt. 5. Do not sleep anytime outside of your set time of sleep. 6. Be as active as you can during the day. documented in this encounter Progress Notes Hiren Mai PA - 05/06/2018 10:00 AM PDT Subjective: Patient ID: Lucie Miller is a 67 y.o. female. HPI last office visit: 04/10/2018 date of polysomnography: 12/25/2017 AHI: 55.2 RDI: 64.1 O2%: 78% with 31.2 minutes below 88% Machine type: ResMed AirSense 10 Mask type: Respironics AmaraView full face mask DME: [facility] [place] pressure: 13-20 cm Median: 13.9 cm 95%: 14.5 cm maximum: 15.2 cm Nights using CPAP: 27/27 % of nights >4 hours: 59% average usage (all nights): 5:00 average usage (nights used): 5:00 AHI: 5.4 Lucie comes in for CPAP compliance. She is wearing her CPAP regularly, but has struggled w ith wearing it for the duration of her sleep on many nights. She worked nights at the [employer] for many years and has become a "night owl". She says her preference would be to go to be d at 1am and wake at 8am. She says she rarely sleeps through the night without disruption. She wakes to use the bathroom at least once. She often wakes during the night and is not a ble to get back to sleep, so she gets up to watch television or read until she becomes sleep y. Sometimes she will fall asleep in her chair/couch and other times she will go back to be d. She has had nights since getting her CPAP that she has taken off her mask during the [facility] ht without knowing it. We discussed the fact that we sleep in ninety minute sleep cycles th roughout the night. We briefly wake up after each of these cycles, but it is usually a subc onscious period. We discussed the fact that CPAP can disrupt these cycles and cause it to b e a conscious wakeup. For others, this remains a subconscious wakeup and the take off their mask and go back to sleep without remembering it. As the CPAP becomes more familiar, it re turns to being a subconscious wakeup. The pathophysiology of Obstructive Sleep Apnea was discussed in detail with her. The associ ations between KAMERON and hypertension, ASCVD, cardiac rhythm abnormalities, stroke, diabetes, and weight were also discussed. We also discussed the importance of wearing her CPAP 100% o f the time she is asleep in order to develop it into a regular part of her sleep routine. W sabrina discussed desensitization techniques to help her get more comfortable with her mask and th e pressure. I have discussed the download in detail. This shows that her sleep apnea is controlled, wi th an AHI of 5.4. It also shows that her leaks are controlled on most nights. Review of Systems Objective: BP 110/72 | Pulse 117 | Resp 16 | Ht 1.702 m (5' 7") | Wt 132.7 kg (292 lb 8.8 oz) | S pO2 95% | BMI 45.82 kg/m Physical Exam Assessment: Problem #1: OBSTRUCTIVE SLEEP APNEA ([id number]) This is controlled with CPAP. She is pretty well with her CPAP usage. She is wearing it n ightly, but has struggled with wearing it for the duration of her sleep on many nights. Plan: 1. She is to continue with CPAP indefinitely. 2. I have recommended: 1. Use your CPAP 100% of the time you are asleep. 2. Keep a consistent wake time and adjust your bed time according to the amount of sleep you need. 3. If you are not able to get to sleep, go to a dark, quiet room and sit, doing nothing, until you become sleepy. Then to go back to bed with your CPAP. Repeat this as many times as necessary. 4. Go to bed at 1am and wake at 8am. Adjust these times as needed, but keep them consist ent. 5. Do not sleep anytime outside of your set time of sleep. 6. Be as active as you can during the day. I will follow up again in 1 month, sooner prn. Forty-five minutes were spent duiy-wr-pyah, with the majority of time spent in counseling. Hiren Mai PA-C cc: GLORIA Rodriges documented in this enco unter Plan of Treatment +--------+---------+ + + + | Date | Type | Specialty | Care Team | Description | +--------+---------+ + + + | 11/23/ | Office | Family Medicine | Ivy Sun | | | 2019 | Visit | | JUSTYN Keating [address] | | | | | | [place] | | | | | | [id number] | | | | | | | | +--------+---------+ + + + documented as of this encounter Visit Diagnoses + + | Diagnosis | + + | KAMERON on CPAP - Primary Obstructive sleep apnea (adult) (pediatric) | + + documented in this encounter
--- OUTSIDE RECORDS SUMMARY | ~2019-10-23 | XMS | Encounter Summary ---
Demographics + + + | Address | [address] | | | [place] [address] | + + + | Home Phone | | + + + | Preferred Language | Unknown | + + + | Marital Status | Single | + + + | Rastafarian Affiliation | 1077 | + + + | Race | Unknown | + + + | Ethnic Group | Unknown | + + + Author + + + | Author | [facility] | | | and Rainerana | + + + | Organization | [facility] | | | and Rainerana [...] [place], [place] | | | | | [address] | | + + + + + | Jelena Hill | ECON | [place] | | | | | [address] | | + + + + + Care Team Providers + +------+ + | Care Inspector Packager Name | Role | Phone | + +------+ + | Ivy Sun | PCP | | + +------+ + Encounter Details +--------+ + + + + | Date | Type | Department | Care Team | Description | +--------+ + + + + | 08/10/ | Abstract | [facility] [place] [facility] | Ivy Sun | | | 2015 | | [facility] | L, NUCLEAR REACTOR TECHNICIAN [address] | | | | | [address] | [address] [place] | | | | | [place] | [address] | | | | | [address] | | | | | | [phone] | | | +--------+ + + + [...] | | | | | | [place] | | | | | | [address] | | | | | | | | +--------+---------+ + + + documented as of this encounter Procedures + +--------+ + + + | Procedure Name | Priori | Date/Time | Associated Diagnosis | Comments | | | ty | | | | + +--------+ + + + | EXTERNAL LAB: PAP | Routin | 06/01/2015 | | Results for this | | SMEAR | e | | | procedure are in the | | | | | | results section. | + +--------+ + + + documented in this encounter Results External Lab: PAP Smear (06/01/2015) + + + + + + | [...]
--- OUTSIDE RECORDS SUMMARY | ~2019-10-23 | XMS | Encounter Summary ---
Demographics + + + | Address | [address] | | | [place] [address] | + + + | Home Phone | | + + + | Preferred Language | Unknown | + + + | Marital Status | Single | + + + | Adventist Affiliation | 1077 | + + + | Race | Unknown | + + + | Ethnic Group | Unknown | + + + Author + + + | Author | [facility] | | | and Rainerana | + + + | Organization | [facility] | | | and [...] [place], [place] | | | | | [address] | | + + + + + | Jelena Hill | ECON | [place] | | | | | [address] | | + + + + + Care Team Providers + +------+ + | Care Sewer Head Name | Role | Phone | + [...] Aortic root | Logan | [address] | | | | | enlargement | MD Missael | [place], | | | | | (HCC) | [address] | [place] | | | | | Procedures | [place] | [address] | | | | | ECHO | [place], [place] | Phone: | | | | | Complete | [address] | [phone] | | | | | | Phone: | Fax: | | | | | | [phone] | [phone] | | | | | | Fax: | | | | | | | [phone] | | +--------+--------+ + + + + Encounter Details +--------+ + + + + | Date | Type | Department | Care Team | Description | +--------+ + + + + | 12/18/ | Hospital | [facility] | Josenat Logan | Aortic root | | 2013 | Encounter | MED CTR XRAY [address] | MD Missael [address] | enlargement (HCC) | | | | [address] [place] | [address] [place] | | | | | [place] [address] | [place] [address] | | | | | [phone] | [phone] | | | | | | | [...] [place] | | | | | | [address] | | | | | | | [...] Performed At | + + + | [facility] Diagnostic Imaging | [place] | | Department [facility] [address] [facility] | [facility] | | [ rep [address]] [ rep [facility] | | st zip] Signed | - IMAGING | | | | | Patient Name: LUCIE CARRERA Physician: | | | SANDRA. : 1950 Age: 63 Sex: F Unit #: [id number] | | | Exam Date: 12/18/13 Location: [facility] | | | Report #: [id number] Page: | | | %(RAD)RES..mtdd.print.filter("pg") of %(RAD) | | | RES..mtdd.print.filter("tpg") | | | | | | Accession Number: [id number] | | | E C H O C A R D I O G R A P H Y R E P O R T | | | HEIGHT: 67" WEIGHT: 257# | | | IUSS MASTER ANALYST: JAH REFERRING DR: LUCIANO JEAN-BAPTISTE DR: | [...] Transcribed Date/Time: 12/18/2013 14:38 | | | Lime Mixer Tender: <<Signature on File>> | | | S | | | Missael Wolf MD12/28/13 1528 <Electronically signed by S S. | | | Luciano JEFFRIES> S Missael Wolf MD 12/18/13 1343 | | | Lime Mixer Tender: [employer] [id number]/21/14 [address] | | | Missael Wolf MD | | + + + + + + + + | Performing | Address | City/State/Zipcode | Phone Number | | Organization | | | | + + + + + | [facility] | [address] | [place] | [phone] | | [facility] | | [address] | | | - IMAGING | | | | + + + + + documented in this encounter Visit Diagnoses + + | Diagnosis | + + | Aortic root enlargement (HCC) Aortic ectasia, unspecified site | + + documented in this encounter
--- OUTSIDE RECORDS SUMMARY | ~2019-10-23 | XMS | Encounter Summary ---
Demographics + + + | Address | [address] | | | [place] [address] | + + + | Home Phone [...] | Author | [facility] | | | and Rainerana | + + + | Organization | [facility] | [...] [place], [place] | | | | | [address] | | + + + + + | Jelena Hill | ECON | [place] | | | | | [address] | | + + + + + Care Team Providers + +------+ + | Care Rehabilitation Aide Name | Role | Phone | + [...] | +--------+ + + + + | 09/03/ | Telephone | [facility] | Ivy Sun | Medication | | 2015 | | MEDICINE [place] | JUSTYN Keating [address] | Management | | | | [address] | [place] | | | | | [place] | [address] | | | | | [address] | | | | | | [phone] | | | +--------+ + + + [...] 11/23/ | Office | Family Medicine | Iyv Sun | | | 2020 | Visit | | [address] | | | | | | [place] | | | | | | [address] | | | | | | | | +--------+---------+ + + + documented as of this encounter Visit Diagnoses Not on filedocumented in this encounter"
--- OUTSIDE RECORDS SUMMARY | ~2019-10-23 | XMS | Encounter Summary ---
Demographics + + + | Address | [address] | | | [place] [address] | + + + | Home Phone | | + + + | Preferred Language | Unknown | + + + | Marital Status | Single | + + + | Moravian Affiliation | 1077 | + + + | Race | Unknown | + + + | Ethnic Group | Unknown | + + + Author + + + | Author | [facility] | | | and Rainerana | + + + | Organization | [facility] [...] [place], [place] | | | | | [address] | | + + + + + | [address] | ECON | [place] | | | | | [address] | | + + + + + Care Team Providers + +------+ + | Care Machine Washer Name | Role | Phone | + +------+ + | Ivy Sun | PCP | | + +------+ + Encounter Details +--------+ + + + + | Date | Type | Department | Care Team | Description | +--------+ + + + + | 11/03/ | Anesthesia | [facility] | Federico Yo MD | | | 2019 | Event | [facility] | [address] | | | | | [address] | [place], [place] | | | | | [place], [place] | [address] | | | | | [address] | | | | | | [phone] | Zackery Taylor | | | | | | MD Nicole [address] | | | | | | [address] [place] | | | | | | [place] [address] | | | | | | | | | | | | | | +--------+ + + + + Anesthesia Record + + + + + | Procedure Name | Responsible | Anesthesia Start | Anesthesia Stop Time | | | Anesthesiologist | Time | | + + + + + | DILATION AND | Federico Yo MD | 11/03/18 1249 | 11/03/18 1329 | | CURETTAGE/ | | | | | HYSTEROSCOPY (N/A | | | | | Pelvis) | | | | + + + + + +----+---+ + + | Da | T | Event | Comment | | te | i | | | | | m | | | | | e | | | +----+---+ + + | 01 | 1 | | | | /0 | 2 | | | | 7/ | 3 | | | | 20 | 8 | | | | 19 | | | | +----+---+ + + | | 1 | An Checkout | Pre-use anesthesia machine/equipment checkout. | | | 2 | | | | | 4 | | | | | 6 | | | +----+---+ + + | | 1 | An Start | | | | 2 | Data | | | | 4 | | | | | 9 | | | +----+---+ + + | | 1 | An Start | Reassessment prior to anesthesia induction/procedure. | | | 2 | | | | | 4 | | | | | 9 | | | +----+---+ + + | | 1 | AN | Per surgeon request | | | 2 | Antibiotic | | | | 5 | declined | | | | 3 | | | +----+---+ + + | | 1 | Preoxygenat | | | | 2 | ed | | | | 5 | | | | | 3 | | | +----+---+ + + | | 1 | An | | | | 2 | Induction | | | | 5 | | | | | 4 | | | +----+---+ + + | | 1 | An | | | | 2 | Intubation | | | | 5 | | | | | 5 | | | +----+---+ + + | | 1 | AN Bite | | | | 2 | Block | | | | 5 | | | | | 6 | | | +----+---+ + + | | 1 | [place] | | | | 2 | 43-degrees | | | | 5 | | | | | 6 | | | +----+---+ + + | | 1 | Pre-Procedu | | | | 3 | ral Timeout | | | | 0 | Completed | | | | 4 | | | +----+---+ + + | | 1 | First | | | | 3 | Inc/Proc St | | | | 0 | | | | | 6 | | | +----+---+ + + | | 1 | [place] off | | | | 3 | | | | | 2 | | | | | 1 | | | +----+---+ + + | | 1 | Breathing | | | | 3 | Spontaneous | | | | 2 | ly | | | | 5 | | | +----+---+ + + | | 1 | an stop | | | | 3 | data | | | | 2 | | | | | 5 | | | +----+---+ + + | | 1 | An Stop | Patient handed off to recovery nurse. | | | 2 | | | | | 9 | | | +----+---+ + + +------+ | Meds | +------+ + +---------+ | Name | Total | + +---------+ | fentaNYL injection (2 mL) | 100 mcg | + +---------+ | propofol (DIPRIVAN) injection | 200 mg | | (bolus) (20 mL) | | + +---------+ | lidocaine 2% | 100 mg | + +---------+ | lactated ringers (LR) infusion | 0 mL | + +---------+ + + | Name | + + | N2O Flow Rate (L/Min) | + + | O2 Flow Rate (L/Min) | + + | Insp O2 | + + | Exp SEV | + + | Exp JIMI | + + | Air Flow Rate (L/Min) | + + + + | No blood administrations on file. | + + +--------+ + + + | Type | Details | Placement | Removal | +--------+ + + + | Periph | 11/03/18; 1155; Left; Mid; | 11/03/18 1155 by | 11/03/18 1524 by | | eral | Forearm; ufqj-jdy-chfnbl catheter | Kristen Hernandes RN | Sierra Molina RN | | IV | system; 18 gauge, 1 1/2 in | | | | | length; Blood Bank, Chemistry, | | | | | Hematology; distraction, topical | | | | | anesthetic spray applied, | | | | | tolerated well; no longer | | | | | indicated; short term use; | | | | | 11/03/18; 1524 | | | +--------+ + + + | Airway | Placement Date: 11/03/18; | 11/03/18 1255 by | 11/03/18 1330 by | | | Placement Time: 1255 (created via | Federico Yo MD | Sierra Molina RN | | | procedure documentation); Mask | | | | | Ventilation: EZ; Attempts: 1; | | | | | Airway Type: laryngeal mask; | | | | | Size: 4; Trauma: none; Placement | | | | | Check: exhaled CO2 detection | | | | | device, bilateral chest rise; | | | | | Removal: removed by KENDRICK per | | | | | protocol; Removal Date: 11/03/18; | | | | | Removal Time: 1330 | | | +--------+ + + + | Pain | 11/03/18; 1340; abdomen; | 11/03/18 1340 by | 11/03/18 1524 by | | Assess | 11/03/18; 1524 | Sierra Molina RN | Sierra Molina RN | | ment: | | | | | Number | | | | | Scale | | | | | | | | | | (0-10) | | | | +--------+ + + + documented in this encounter Social History + + + +--------+ + [...] | +--------+---------+ + + + | 11/23/ Office | Family Medicine | Ivy Sun | | | 2019 | Visit | | Rishab[place], JUSTYN [address] | | | | | | [place] | | | | | | [address] | | | | | | | | +--------+---------+ + + + documented as of this encounter Procedures + +--------+ + + + | Procedure Name | Priori | Date/Time | Associated Diagnosis | Comments | | | ty | | | | + +--------+ + + + | ANE AIRWAY NOTE | Routin | 11/03/2018 | | Results for this | | | e | 1:02 PM | | procedure are in the | | | | PST | | results section. | + +--------+ + + + documented in this encounter Results Anesthesia Airway Note (11/03/2018 1:02 PM PST) + + + | Narrative | Performed At | + + + | Federico Yo MD 11/03/2018 13:04 Anesthesia Airway Placement | | | 11/03/2018 12:55 Preprocedure check: patient identified, suction, | | | oxygen, airway equipment checked and airway assessed Rapid Sequence | | | Induction: no Mask ventilation: easy Attempts: 1 Airway type: | | | laryngeal mask Size: 4 Cuffed: cuffed Route, reference point: | | | center of mouth Tube secured with: adhesive tape Trauma: none Tube | | | placement verification: bilateral chest rise and carbon dioxide | | | detection Performing provider: FEDERICO YO Electronically | | | Signed by: Federico Yo MD | | | ESig date/time: 11/03/2018 13:02 | | + + + + + | Procedure Note | + + | Federico Yo MD - 11/03/2018 1:02 PM PST Anesthesia Airway Placement11/03/2018 | | 12:55Preprocedure check: patient identified, suction, oxygen, airway equipment checked | | and airway assessedRapid Sequence Induction: noMask ventilation: easyAttempts: 1Airway | | type: laryngeal maskSize: 4Cuffed: cuffedRoute, reference point: center of mouthTube | | secured with: adhesive tapeTrauma: noneTube placement verification: bilateral chest rise | | and carbon dioxide detectionPerforming provider: FEDERICO YO LElectronically Signed | | by: MD Katalina Graves date/time: 11/03/2018 13:02 | | | |Size: 4 | |Cuffed: cuffed | |Route, reference point: center of mouth | |Tube secured with: adhesive tape | |Trauma: none | |Tube placement verification: bilateral chest rise and carbon dioxide detection | |Performing provider: FEDERICO YO | | | | | |Electronically Signed by: MD Katalina Graves date/time: 11/03 13:02 | | | + + documented in this encounter Visit Diagnoses Not on filedocumented in this encounter Administered Medications + +--------+ +---------+------+------+ | Medication Order | MAR | Action | Dose | Rate | Site | | | Action | Date | | | | + +--------+ +---------+------+------+ | fentaNYL (PF) injection | Given | 11/03/19 | 100 mcg | | | | Intravenous, PRN, Pain, Starting | | 19 12:53 | | | | | 11/03/18 at 1253, Anesthesia | | PM PST | | | | | Intra-op | | | | | | + +--------+ +---------+------+------+ +---+---+ | | | +---+---+ + +-------+ +--------+---+---+ | lidocaine (PF) 2% injection | Given | 11/03/19 | 100 mg | | | | Intravenous, PRN, Starting Mon | | 19 12:54 | | | | | 11/03/18 at 1254, Anesthesia | | PM PST | | | | | Intra-op | | | | | | + +-------+ +--------+---+---+ +---+---+ | | | +---+---+ + +-------+ +--------+---+---+ | propofol (DIPRIVAN) injection | Given | 11/03/19 | 200 mg | | | | Intravenous, PRN, Starting Mon | | 19 12:54 | | | | | 11/03/18 at 1254, Anesthesia | | PM PST | | | | | Intra-op | | | | | | + +-------+ +--------+---+---+ +---+---+ | | | +---+---+ documented in this encounter"
--- OUTSIDE RECORDS SUMMARY | ~2019-10-23 | XMS | Encounter Summary ---
Demographics + + + | Address | [address] | | | [place] [address] | + + + | Home Phone | | + + + | Preferred Language | Unknown | + + + | Marital Status | Single | + + + | Taoism Affiliation | 1077 | + + + | Race | Unknown | + + + | Ethnic Group | Unknown | + + + Author + + + | Author | [facility] | | | and Rainerana | + + + | Organization | [facility] | | | and [...] [place], [place] | | | | | [address] | | + + + + + | [address] | ECON | [place] | | | | | [address] | | + + + + + Care Team Providers + +------+ + | Care Dandy Operator Name | Role | Phone | + +------+ + | Ivy Sun | PCP | | + +------+ + Encounter Details +--------+ + + + + | Date | Type | Department | Care Team | Description | +--------+ + + + + | 05/28/ | Hospital | [facility] | Ivy Sun | | | 2011 | Encounter | MED CTR LABORATORY | L, [employer]ACH[employer] [address] | | | | | [address] [place] | [address] [place], [place] | | | | | [place], [place] | [address] | | | | | [address] | | | | | | [phone] | | | +--------+ + + + [...] | | 11 | 2 | | [id number] UNITS capsule | mouth once weekly | [...] 2ND | | | | | | [place] | | | | | | [address] | | | | | | | | +--------+---------+ + + + documented as of this encounter Procedures + +--------+ + + + | Procedure Name | Priori | Date/Time | Associated Diagnosis | Comments | | | ty | | | | + +--------+ + + + | URINALYSIS, | Routin | 05/28/2012 | | Results for this | | MICROSCOPIC ONLY, | e | 11:32 AM | | procedure are in the | | WITH CULTURE IF | | PDT | | results section. | | INDICATED | | | | | + +--------+ + + + | LIPID PROFILE | Routin | 05/28/2012 | | Results for this | | | e | 11:32 AM | | procedure are in the | | | | PDT | | results section. | + +--------+ + + + | CBC WITH | Routin | 05/28/2012 | | Results for this | | DIFFERENTIAL | e | 11:32 AM | | procedure are in the | | | | PDT | | results section. | + +--------+ + + + | TSH | Routin | 05/28/2012 | | Results for this | | | e | 11:32 AM | | procedure are in the | | | | PDT | | results section. | + +--------+ + + + | T4, FREE | Routin | 05/28/2012 | | Results for this | | | e | 11:32 AM | | procedure are in the | | | | PDT | | results section. | + +--------+ + + + | HEMOGLOBIN A1C | Routin | 05/28/2012 | | Results for this | | | e | 11:32 AM | | procedure are in the | | | | PDT | | results section. | + +--------+ + + + | COMPREHENSIVE | Routin | 05/28/2012 | | Results for this | | METABOLIC PANEL | e | 11:32 AM | | procedure are in the | | | | PDT | | results section. | + +--------+ + + + documented in this encounter Results Urinalysis, Microscopic Only, with Culture if Indicated (05/28/2012 11:32 AM PDT) + + + + + + | Component | Value | Ref Range | Performed | Pathologist | | | | | At | Signature | + + + + + + | COLLECTION | . | | [facility] | | | [facility] | | | [facility] | | | | | | [facility] | | | | | | CENTER - | | | | | | LABORATORY | | + + + + + + | WBC UA | 5-10 | 0 - 1 /hpf | [facility] | | | | | | [facility] | | | | | | MEDICAL | | | | | | CENTER - | | | | | | LABORATORY | | + + + + + + | RBC UA | 0-2 | 0 - 4 /hpf | [facility] | | | | | | [facility] | | | | | | MEDICAL | | | | | | CENTER - | | | | | | LABORATORY | | + + + + + + | SQUAMOUS | RARE | FEW /hps | [facility] | | | EPITHELIAL | | | [facility] | | | UA | | | MEDICAL | | | | | | CENTER - | | | | | | LABORATORY | | + + + + + + | BACTERIA UA | RARE | NONE /hpf | [facility] | | | | | | [facility] | | | | | | MEDICAL | | | | | | CENTER - | | | | | | LABORATORY | | + + + + + + | Culture | YESComment: REFLEXED TO | | [facility] | | | Indicated | URINE CULTURE. | | [facility] | | | [...] + | [facility] | [address] | [place], [place] | [phone] | | [facility] | | [address] | | | - LABORATORY | | | | + + + + + | [facility] | [address] | [place], [place] | | | [facility] | | [address] | | | - LABORATORY | | | | + + + + + CBC with Differential (05/28/2012 11:32 AM PDT) + +-------+ + + + | Component | Value | Ref Range | Performed | Pathologist | | | | | At | Signature | + +-------+ + + + | WBC | 8.9 | 4.0 - 11.0 K/uL | [facility] | | | | | | [facility] | | | | | | MEDICAL | | | | | | CENTER - | | | | | | LABORATORY | | + +-------+ + + + | RBC | 4.76 | 3.70 - 5.20 | [facility] | | | | | M/uL | [facility] | | | | | | MEDICAL | | | | | | CENTER - | | | | | | LABORATORY | | + +-------+ + + + | Hemoglobin | 15.4 | 11.5 - 16.0 | [facility] | | | | | gm/dL | [facility] | | | | | | MEDICAL | | | | | | CENTER - | | | | | | LABORATORY | | + +-------+ + + + | Hematocrit | 46.2 | 34.0 - 47.0 % | [facility] | | | | | | [facility] | | | | | | MEDICAL | | | | | | CENTER - | | | | | | LABORATORY | | + +-------+ + + + | MCV | 97.0 | 83.0 - 101.0 fL | [facility] | | | | | | [facility] | | | | | | MEDICAL | | | | | | CENTER - | | | | | | LABORATORY | | + +-------+ + + + | MCH | 32.4 | 28.0 - 35.0 pg | [facility] | | | | | | [facility] | | | | | | MEDICAL | | | | | | CENTER - | | | | | | LABORATORY | | + +-------+ + + + | MCHC | 33.4 | 32.0 - 36.0 | [facility] | | | | | g/dL | [facility] | | | | | | MEDICAL | | | | | | CENTER - | | | | | | LABORATORY | | + +-------+ + + + | RDW-CV | 13.4 | <15.0 % | [facility] | | | | | | [facility] | | | | | | MEDICAL | | | | | | CENTER - | | | | | | LABORATORY | | + +-------+ + + + | Platelet | 249 | 140 - 440 K/uL | [facility] | | | Count | | | [facility] | | | | | | MEDICAL | | | | | | CENTER - | | | | | | LABORATORY | | + +-------+ + + + | % | 64.2 | 45 - 75 % | [facility] | | | Neutrophils | | | [facility] | | | | | | MEDICAL | | | | | | CENTER - | | | | | | LABORATORY | | + +-------+ + + + | % | 24.1 | 20 - 45 % | [facility] | | | Lymphocytes | | | [facility] | | | | | | MEDICAL | | | | | | CENTER - | | | | | | LABORATORY | | + +-------+ + + + | % Monocytes | 7.4 | 4 - 12 % | [facility] | | | | | | [facility] | | | | | | MEDICAL | | | | | | CENTER - | | | | | | LABORATORY | | + +-------+ + + + | % | 3.9 | 0 - 5 % | [facility] | | | Eosinophils | | | [facility] | | | | | | MEDICAL | | | | | | CENTER - | | | | | | LABORATORY | | + +-------+ + + + | % Basophils | 0.4 | 0 - 1 % | [facility] | | | | | | [facility] | | | | | | MEDICAL | | | | | | CENTER - | | | | | | LABORATORY | | + +-------+ + + + | Absolute | 5.7 | 1.5 - 6.6 K/uL | [facility] | | | Neutrophils | | | [facility] | | | | | | MEDICAL | | | | | | CENTER - | | | | | | LABORATORY | | + +-------+ + + + | Absolute | 2.2 | 0.6 - 3.2 K/uL | [facility] | | | Lymphocytes | | | [facility] | | | | | | MEDICAL | | | | | | CENTER - | | | | | | LABORATORY | | + +-------+ + + + | Absolute | 0.7 | 0.0 - 1.0 K/uL | [facility] | | | Monocytes | | | [facility] | | | | | | MEDICAL | | | | | | CENTER - | | | | | | LABORATORY | | + +-------+ + + + | Absolute | 0.3 | 0.0 - 0.4 K/uL | [facility] | | | Eosinophils | | | [facility] | | | | | | MEDICAL | | | | | | CENTER - | | | | | | LABORATORY | | + +-------+ + + + | Absolute | 0.0 | 0.0 - 0.1 K/uL | [facility] | | | Basophils | | | [facility] | | [...] + | [facility] | [address] | [place] | [phone] | | [facility] | | [address] | | | - LABORATORY | | | | + + + + + | [facility] | [address] | [place], [place] | | | [facility] | | [address] | | | - LABORATORY | | | | + + + + + TSH (05/28/2012 11:32 AM PDT) + + + + + + | Component | Value | Ref Range | Performed | Pathologist | | | | | At | Signature | + + + + + + | TSH | 2.88Comment: Testing | 0.34 - 5.60 | [facility] | | | | performed on the Lexx | uIU/mL | [facility] | | | | [facility] | | MEDICAL | | | [...] + | [facility] | [address] | [place], [place] | [phone] | | [facility] | | [address] | | | - LABORATORY | | | | + + + + + | [facility] | [address] | [place] | | | [facility] | | [address] | | | - LABORATORY | | | | + + + + + T4, Free (05/28/2012 11:32 AM PDT) + + + + + + | Component | Value | Ref Range | Performed | Pathologist | | | | | At | Signature | + + + + + + | FT4 | 0.96Comment: Testing | 0.61 - 1.12 | [facility] | | | | performed on the Lexx | ng/dL | [facility] | | | | [facility] | [...] + | [facility] | [address] | [place] | [phone] | | [facility] | | [address] | | | - LABORATORY | | | | + + + + + | [facility] | [address] | [place] | | | [facility] | | [address] | | | - LABORATORY | | | | + + + + + Lipid Profile (05/28/2012 11:32 AM PDT) + + + + + + | Component | Value | Ref Range | Performed | Pathologist | | | | | At | Signature | + + + + + + | Triglycerid | 74 | 35 - 160 mg/dL | [facility] | | | es | | | [facility] | | | | | | MEDICAL | | | | | | CENTER - | | | | | | LABORATORY | | + + + + + + | Cholesterol | 197 | 150 - 200 mg/dL | [facility] | | | | | | [facility] | | | | | | MEDICAL | | | | | | CENTER - | | | | | | LABORATORY | | + + + + + + | HDL | 53 | 29 - 89 mg/dL | [facility] | | | | | | [facility] | | | | | | MEDICAL | | | | | | CENTER - | | | | | | LABORATORY | | + + + + + + | LDL, | 129 | <130 mg/dL | [facility] | | | Calculated | | | [facility] | | | | | | MEDICAL | | | | | | CENTER - | | | | | | LABORATORY | | + + + + + + | Chol/HDL | 3.7Comment: | | [facility] | | | Ratio | | | [facility] | | | | | | MEDICAL | | | | ------- RISK CATEGORY: | | CENTER - | | | | CHOL/HDL * T.CHOL * LDL | | LABORATORY | | | | CHOL * HDL CHOL | | | | | | | | | | | | RATIO DESIRABLE: (M) | | | | | | 4.0-6.7 <200 | | | | | | <130 >50 | | | | | | (F) | | | | | | 3.7-4.2 BORDERLINE:(M) | | | | | | 6.7-7.4 200-240 | | | | | | 130-160 <45 | | | | | | (F) | | | | | | 4.2-5.5 HIGH RISK: (M) | | | | | | >7.4 >240 | | | | | | >160 <35 | | | | | | (F) | | | | | | >5.5 | | | | | | | | | | | | | | | | | | --------- | | | | + + + + + + + + | Specimen | + + | | + + + + + + + | Performing | Address | City/State/Zipcode | Phone Number | | Organization | | | | + + + + + | [facility] | [address] | [place] | [phone] | | [facility] | | [address] | | | - LABORATORY | | | | + + + + + | [facility] | [address] | [place] | | | [facility] | | [address] | | | - LABORATORY | | | | + + + + + Comprehensive Metabolic Panel (05/28/2012 11:32 AM PDT) + + + + + + | Component | Value | Ref Range | Performed | Pathologist | | | | | At | Signature | + + + + + + | Glucose | 99 | 70 - 109 mg/dL | [facility] | | | | | | [facility] | | | | | | MEDICAL | | | | | | CENTER - | | | | | | LABORATORY | | + + + + + + | Calcium | 9.0 | 8.3 - 10.5 | [facility] | | | | | mg/dL | [facility] | | | | | | MEDICAL | | | | | | CENTER - | | | | | | LABORATORY | | + + + + + + | Alkaline | 89 | 40 - 110 IU/L | [facility] | | | Phosphatase | | | [facility] | | | | | | MEDICAL | | | | | | CENTER - | | | | | | LABORATORY | | + + + + + + | AST | 29 | 10 - 42 IU/L | [facility] | | | | | | [facility] | | | | | | MEDICAL | | | | | | CENTER - | | | | | | LABORATORY | | + + + + + + | ALT | 24 | 6 - 45 IU/L | [facility] | | | | | | [facility] | | | | | | MEDICAL | | | | | | CENTER - | | | | | | LABORATORY | | + + + + + + | Bilirubin | 0.6 | 0.2 - 1.0 mg/dL | [facility] | | | Total | | | [facility] | | | | | | MEDICAL | | | | | | CENTER - | | | | | | LABORATORY | | + + + + + + | Total | 6.9 | 6.0 - 7.8 gm/dL | [facility] | | | Protein | | | [facility] | | | | | | MEDICAL | | | | | | CENTER - | | | | | | LABORATORY | | + + + + + + | Albumin | 3.4 | 3.2 - 5.0 gm/dL | [facility] | | | | | | [facility] | | | | | | MEDICAL | | | | | | CENTER - | | | | | | LABORATORY | | + + + + + + | BUN | 12 | 7 - 18 mg/dL | [facility] | | | | | | [facility] | | | [facility] | | MEDICAL | | | | | | CENTER - | | | | | | LABORATORY | | + + + + + + | Creatinine | 0.76 | 0.60 - 1.30 | [facility] | | | | | mg/dL | [facility] | | | | | | MEDICAL | | | | | | CENTER - | | | | | | LABORATORY | | + + + + + + | Estimated | >60Comment: For | >60 mL/min/A | [facility] | | | GFR | -Americans, | | [facility] | | | | please multiply the | | MEDICAL | | | | result by 1.210 | | CENTER - | | | | This is an estimated | | LABORATORY | | | | GFR and is based on a | | | | | | standard adult | | | | | | body mass (A=1.73m2) and | | | | | | serum creatinine | | | | + + + + + + | BUN/Creatin | 15.8 | 12 - 20 | [facility] | | | ine Ratio | | | [facility] | | | | | | MEDICAL | | | | | | CENTER - | | | | | | LABORATORY | | + + + + + + | Na | 135 (L) | 136 - 149 mEq/L | [facility] | | | | | | [facility] | | | | | | MEDICAL | | | | | | CENTER - | | | | | | LABORATORY | | + + + + + + | K | 3.7 | 3.5 - 5.1 mEq/l | [facility] | | | | | | [facility] | | | | | | MEDICAL | | | | | | CENTER - | | | | | | LABORATORY | | + + + + + + | Cl | 103 | 98 - 109 mEq/l | [facility] | | | | | | [facility] | | | | | | MEDICAL | | | | | | CENTER - | | | | | | LABORATORY | | + + + + + + | CO2 | 25 | 24 - 31 mEq/L | [facility] | | | | | | [facility] | | | | | | MEDICAL | | | | | | CENTER - | | | | | | LABORATORY | | + + + + + + | Anion Gap | 10.7 | 6.0 - 17.0 | [facility] | | | | | [...] + | [facility] | [address] | [place], [place] | [phone] | | [facility] | | [address] | | | - LABORATORY | | | | + + + + + | [facility] | [address] | [place], [place] | | | [facility] | | [address] | | | - LABORATORY | | | | + + + + + Hemoglobin A1C (05/28/2012 11:32 AM PDT) + +-------+ + + + | Component | Value | Ref Range | Performed | Pathologist | | | | | At | Signature | + +-------+ + + + | Hemoglobin | 5.6 | 4.3 - 5.8 % | [facility] | | | A1c | | | [facility] | | [...] | [address] | [place] | [phone] | | [facility] | | [address] | | | - LABORATORY | | | | + + + + + | [facility] | [address] | [place] | | | [facility] | | [address] | | | - LABORATORY | | | | + + + + + documented in this encounter Visit Diagnoses Not on filedocumented in this encounter"
--- OUTSIDE RECORDS SUMMARY | ~2019-10-23 | XMS | Encounter Summary ---
Demographics + + + | Address | [address] | | | [place] [address] | + + + | Home Phone | | + + + | Preferred Language | Unknown | + + + | Marital Status | Single | + + + | Latter-Day Affiliation | 1077 | + + + | Race | Unknown | + + + | Ethnic Group | Unknown | + + + Author + + + | Author | [facility] | | | and Rainerana | + + + | Organization | [facility] | [...] [place], [place] | | | | | [address] | | + + + + + | [address] | ECON | [place] | | | | | [address] | | + + + + + Care Team Providers + +------+ + | Care Director Of Application Development Name | Role | Phone | + [...] + | 02/05/ | Telephone | [facility] | [place] | Medication | | 2019 | | [facility] | [address] | Management | | | | [address] | [place] | | | | | [place] | [address] | | | | | [address] | | | | | | [phone] | | | +--------+ + + + [...]
--- OUTSIDE RECORDS SUMMARY | ~2019-10-23 | XMS | Encounter Summary ---
Demographics + + + | Address | [address] | | | [place] [address] | + + + | Home Phone [...] Author | [facility] | | | and Rainerana | + + + | Organization | [facility] | | [...] [place], [place] | | | | | [address] | | + + + + + | Jelena Hill | ECON | [place] | | | | | [address] | | + + + + + Care Team Providers + +------+ + | Care Veterinarian Laboratory Animal Care Name | Role | Phone | + +------+ + | Ivy Sun | PCP | | + +------+ + Encounter Details +--------+ + + + + | Date | Type | Department | Care Team | Description | +--------+ + + + + | 07/24/ | Hospital | [facility] | Ivy Sun | Derangement of right | | 2016 | Encounter | [facility] | L, 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 | [address] | [place] | [phone] | | [facility] | | [address] | | | - IMAGING | | | | + + + + + documented in this encounter Visit Diagnoses + + | Diagnosis | + + | Derangement of right knee Unspecified internal derangement of knee | + + documented in this encounter"
--- OUTSIDE RECORDS SUMMARY | ~2019-10-23 | XMS | Encounter Summary ---
Demographics + + + | Address | [address] | | | [place] [address] | + + + | Home Phone [...] Author | [facility] | | | and Rainerana | + + + | Organization | [facility] | | | and Rainerana | + + + | Address | Unknown | + + + | Phone | Unavailable | + + + Support + + + + + | Name | Relationship | Address | Phone | + + + + + | Aleks Noguera | BYRANT | [address] | | | | | [place], [place] | | | | | [address] | | + + + + + | Jelena Hill | ECON | [place] | | | | | [address] | | + + + + + Care Team Providers + +------+ + | Care Wood Tank Builder Name | Role | Phone | + [...] Description | +--------+--------+ + + + | 07/30/ | Refill | [facility] | Ivy Sun | Medication Refill | | 2015 | | MEDICINE [place] | Rishabh, JUSTYN [address] | | | | | [address] | [place] | | | | | [place] | [address] | | | | | [address] | | | | | | [phone] | | | +--------+--------+ + + + [...] [place] | | | | | | [address] | | | | | | | | +--------+---------+ + + + documented as of this encounter Visit Diagnoses Not on filedocumented in this encounter"
--- OUTSIDE RECORDS SUMMARY | ~2019-10-23 | XMS | Encounter Summary ---
Demographics + + + | Address | [address] | | | [place] [address] | + + + | Home Phone | | + + + | Preferred Language | Unknown | + + + | Marital Status | Single | + + + | Advent Affiliation | 1077 | + + + | Race | Unknown | + + + | Ethnic Group | Unknown | + + + Author + + + | Author | [facility] | | | and Rainerana | + + + | Organization | [facility] | [...] [place], [place] | | | | | [address] | | + + + + + | Jelena Hill | ECON | [place] | | | | | [address] | | + + + + + Care Team Providers + +------+ + | Care Splicing Machine Operator Automatic Name | Role | Phone | + [...] + | 09/28/ | Refill | [facility] | Ivy Sun | Medication Refill | | 2012 | | MEDICINE [place] | Rishabh, JUSTYN [address] | | | | | [address] | [place], [place] | | | | | [place], [place] | [address] | | | | | [address] | | | | | | [phone] | | | +--------+--------+ + + + [...] [place] | | | | | | [address] | | | | | | | | +--------+---------+ + + + documented as of this encounter Visit Diagnoses + + | Diagnosis | + + | Insomnia - Primary Insomnia, unspecified | + + documented in this encounter"
--- OUTSIDE RECORDS SUMMARY | ~2019-10-23 | XMS | Encounter Summary ---
Demographics + + + | Address | [address] | | | [place] [address] | + + + | Home Phone | | + + + | Preferred Language | Unknown | + + + | Marital Status | Single | + + + | Gnosticism Affiliation | 1077 | + + + | Race | Unknown | + + + | Ethnic Group | Unknown | + + + Author + + + | Author | [facility] | | | and Rainerana | + + + | Organization | [facility] | | | and [...] [place], [place] | | | | | [address] | | + + + + + | Jelena Hill | ECON | [place] | | | | | [address] | | + + + + + Care Team Providers + +------+ + | Care Piccoloist Name | Role | Phone | + [...] | +--------+ + + + + | 02/28/ | Telephone | [facility] | Ivy Sun | Medication Refill | | 2017 | | MEDICINE [place] | JUSTYN Keating [address] | | | | | [address] | [place], [place] | | | | | [place] | [address] | | | | | [address] | | | | | | [phone] | | | +--------+ + + + [...] [place] | | | | | | [address] | | | | | | | | +--------+---------+ + + + documented as of this encounter Visit Diagnoses + + | Diagnosis | + + | Restless leg Restless legs syndrome (RLS) | + + | OAB (overactive bladder) Hypertonicity of bladder | + + | Impaired fasting glucose | + + | Essential hypertension Unspecified essential hypertension | + + | Hyperlipidemia, unspecified hyperlipidemia type | + + documented in this encounter"
--- OUTSIDE RECORDS SUMMARY | ~2019-10-23 | XMS | Encounter Summary ---
Demographics + + + | Address | [address] | | | [place] [address] | + + + | Home Phone [...] + + + | Author | [facility] | | | and Rainerana | + + + | Organization | [facility] | | | and [...] [place], [place] | | | | | [address] | | + + + + + | Jelena Hill | ECON | [place] | | | | | [address] | | + + + + + Care Team Providers + +------+ + | Care Carpet Renovator Name | Role | Phone | + [...] + + | 05/06/ | Office | [facility] | Hiren Mai PA | KAMERON on CPAP (Primary | | 2018 | Visit | SLEEP DISORDER [address] | [address] | Dx) | | | | [address] [place] | [place] | | | | | [place] [address] | [address] | | | | | [phone] | | | +--------+---------+ + + + [...] in this encounter Patient Instructions Patient Instructions [place], Hiren D, PA - 05/06/2018 10:00 AM [...] face mask DME: [facility] [place] pressure: 13-20 cm Median: 13.9 cm 95%: [...] many nights. She worked nights at the [employer] for many years and has become a [...] has taken off her mask during the [facility] ht without knowing it. We discussed the [...] Exam Assessment: Problem #1: OBSTRUCTIVE SLEEP APNEA ([id number]) This is controlled with CPAP. She is [...] month, sooner prn. Forty-five minutes were spent [id number], with the majority of time spent in [...] [place] | | | | | | [address] | | | | | | | | +--------+---------+ + + + documented as of this encounter Visit Diagnoses + + | Diagnosis | + + | KAMERON on CPAP - Primary Obstructive sleep apnea (adult) (pediatric) | + + documented in this encounter
--- OUTSIDE RECORDS SUMMARY | ~2019-10-23 | XMS | Encounter Summary ---
Demographics + + + | Address | [address] | | | [place] [address] | + + + | Home Phone [...] Author | [facility] | | | and Rainerana | + + + | Organization | [facility] | | [...] [place], [place] | | | | | [address] | | + + + + + | Jelena Hill | ECON | [place] | | | | | [address] | | + + + + + Care Team Providers + +------+ + | Care Manager Regional Name | Role | Phone | + [...] | 09/03/ | Telephone | [facility] | Ivy Sun | Medication | | 2015 | | MEDICINE [place] | JUSTYN Keating [address] | Management | | | | [address] | [place] | | | | | [place] | [address] | | | | | [address] | | | | | | [phone] | | | +--------+ + + + [...] [place] | | | | | | [address] | | | | | | | | +--------+---------+ + + + documented as of this encounter Visit Diagnoses Not on filedocumented in this encounter"
--- OUTSIDE RECORDS SUMMARY | ~2019-10-23 | XMS | Encounter Summary ---
Demographics + + + | Address | [address] | | | [place] [address] | + + + | Home Phone [...] | Author | [facility] | | | and Rainerana | + + + | Organization | [facility] | | | and [...] [place], [place] | | | | | [address] | | + + + + + | Jelena Hill | ECON | [place] | | | | | [address] | | + + + + + Care Team Providers + +------+ + | Care Conference Services Manager Name | Role | Phone | + +------+ + | Ivy Sun | PCP | | + +------+ + Reason for Visit + + + | Reason | Comments | + + + | Recall For Services | | | (DMST) | | + + + | Mammogram | | + + + Encounter Details +--------+ + + + + | Date | Type | Department | Care Team | Description | +--------+ + + + + | 07/21/ | Patient | [facility] | Ivy Sun | Preventive | | 2018 | Outreach | MEDICINE [place] | JUSTYN Keating [address] | Screening, Breast | | | | [address] | [place], [place] | Cancer Screening | | | | [place], [place] | [address] | | | | | [address] | | | | | | [phone] | | | +--------+ + + + [...] [place] | | | | | | [address] | | | | | | | | +--------+---------+ + + + documented as of this encounter Visit Diagnoses Not on filedocumented in this encounter"
--- OUTSIDE RECORDS SUMMARY | ~2019-10-23 | XMS | Encounter Summary ---
Demographics + + + | Address | [address] | | | [place] [address] | + + + | Home Phone [...] | Author | [facility] | | | and Rainerana | + + + | Organization | [facility] | [...] [place], [place] | | | | | [address] | | + + + + + | Jelena Hill | ECON | [place] | | | | | [address] | | + + + + + Care Team Providers + +------+ + | Care Damage Cutter Name | Role | Phone | + +------+ + | Ivy Sun | PCP | | + +------+ + Encounter Details +--------+ + + + + | Date | Type | Department | Care Team | Description | +--------+ + + + + | 09/12/ | Abstract | [facility] [place] | Calderon Shaw, | | | 2014 | | NEUROSURGERY [address] | PA-C [address] | | | | | [address] | [address] [place] | | | | | [place], [place] | [place] [address] | | | | | [address] | [phone] | | | | | [phone] | | | +--------+ + + + [...] [place] | | | | | | [address] | | | | | | | | +--------+---------+ + + + documented as of this encounter Visit Diagnoses Not on filedocumented in this encounter"
--- OUTSIDE RECORDS SUMMARY | ~2019-10-23 | XMS | Clinical Summary ---
Demographics + + + | Address | [address] | | | [place] [address] | + + + | Home Phone | | + + + | Preferred Language | Unknown | + + + | Marital Status | Single | + + + | Baptism Affiliation | Unknown | + + + | Race | White | + + + | Ethnic Group | Not or | + + + Author + + + | Author | [facility] | + + + | Organization | [facility] | + + + [...] [place] | | | | | [address] | | + + + + + Care Team Providers + +------+ + | Care Flying I Instructor Name | Role | Phone | + +------+ + PCP | Unavailable | + +------+ + Source Comments AL is fully live on both [facility] and [facility] InPatient.[facility] Allergies No Known Allergies Medications [...] (MIRAPEX) 1 mg Oral | tabs at [facility] prn | | | 0/20 | [...] | PHP | xxxxxxxxxxx | 01/27/20 | [phone] | [address] | [address] | | | [address] | | [address] | | | [address] | | sent | | [place], | | | | [place] | | | | [place] [address] | | + +--------+ +--------+ + +------+ [...] sean | | | 9 (Home) | [address] | + +--------+ +--------+ + + Advance Directives + + + + + | Type | Date Recorded | Patient | Explanation | | | | Speck Dyer | | + + + + + | Advance | | | | | Directives and | | | | | Living Will | | | | + + + + + | Power of | | | | | Automatic Pilot Mechanic | | | | + + + + +
--- OUTSIDE RECORDS SUMMARY | ~2019-10-23 | XMS | Encounter Summary ---
Demographics + + + | Address | [address] | | | [place] [address] | + + + | Home Phone | | + + + | Preferred Language | Unknown | + + + | Marital Status | Single | + + + | Alevism Affiliation | 1077 | + + + | Race | Unknown | + + + | Ethnic Group | Unknown | + + + Author + + + | Author | [facility] | | | and Rainerana | + + + | Organization | [facility] | | | [...] [place], [place] | | | | | [address] | | + + + + + | Jelena Hill | ECON | [place] | | | | | [address] | | + + + + + Care Team Providers + +------+ + | Care Shovel Loader Operator Name | Role | Phone | + +------+ + | Iyv Sun | PCP | | + +------+ + Reason for Visit + + + | Reason | Comments | + + + | Follow-up | Discuss Surgery | + + + Encounter Details +--------+---------+ + + + | Date | Type | Department | Care Team | Description | +--------+---------+ + + + | 02/12/ | Office | [facility] | Lorenzo Pryor, | Spondylolisthesis, | | 2016 | Visit | NEUROSURGERY [address] | DO [address] | lumbar region | | | | [address] | [address] [place], [place] | (Primary Dx); Lumbar | | | | [place], [place] | [id number] | stenosis; Chronic | | | | [address] | | midline low back | | | | [phone] | | pain without | | | | | | sciatica | +--------+---------+ + + + Social History [...] + + + | Blood Pressure | 111/81 | 02/12/2017 3:55 PM | | | | | PDT | | + + + + + | Pulse | 110 | 02/12/2017 3:55 PM | | | | | PDT [...] + + + + | Weight | 133.6 kg (294 lb 8 | 02/12/2017 3:55 PM | | | | oz) | PDT | | + + + + + | Height | 170.2 cm (5' 7") | 02/12/2017 3:55 PM | | | | | PDT | | + + + + + | Body Mass Index | 46.13 | 02/12/2017 3:55 PM | | | | | PDT | | + + + + + documented in this encounter Patient Instructions Patient Instructions Lorenzo Pryor DO - 02/12/2017 4:40 PM PDTPlease undergo bilateral L4-[address] Tovar. Please follow-up with me as needed if steroid injections do not help and you would like to proceed with surgery. documented in this encounter Progress Notes Lorenzo Pryor DO - 02/12/2017 4:41 PM PDTFormatting of this note might be different fro m the original. Lorenzo Pryor DO [address] [facility], [address] [place] [address] FAX: NEUROSURGERY HISTORY AND PHYSICAL EXAMINATION CHIEF COMPLAINT: Chief Complaint Patient presents with Follow-up Discuss Surgery HISTORY OF PRESENT ILLNESS: The patient is a 66 y.o. female with the complaint of back sym ptoms that began 6 months ago. 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 Th e symptoms have been gradually worsening. She rates the pain as moderate. The symptoms are intermittent, daily. She describes the p ain as aching and stabbing. The patient denies leg symptoms that occur on both sides. The patient also describes diffic ulty walking related to the low back pain. The patient does not report any change in bowel or bladder function recently. Her symptoms improve with rest. Her symptoms worsen with walking, bending, twisting and light exertion. She has tried lifestyle modification, pain medication, rest. PAST MEDICAL HISTORY: Past Medical History Diagnosis [...] Restless leg syndrome Menopausal and perimenopausal disorder 2004 Eczema Hearing loss Sleep apnea Smoker Seborrheic [...] tablet by mouth Daily. 90 tablet 1 meclizine (ANTIVERT) 25 mg tablet Take 1 tablet by mouth 3 times daily as needed. 60 ta blet 0 metFORMIN (GLUCOPHAGE) 500 mg tablet TAKE [...] anemia, no fatigue, + recent profound weight c hanges. EYES: + eye problems, + use of corrective lenses, no eye injury, no double vision, no bli ndness. EARS, NOSE, AND THROAT: No changes in taste or smell, + hearing difficulty, no ringing in the ears, no ear drainage, no dizziness, no voice changes, no difficulty swallowing, + sign ificant snoring, + sleep apnea, no sinus problems, + major dental work. NEUROLOGICALLY: Please see the review of systems discussed above in the history of presen t illness. In addition, the patient has tremor/shaking. PSYCHIATRIC: + depression, + sleep disorders, + anxiety, no bipolar disorder, no psychoti c episodes. CARDIOVASCULAR: No heart attacks, no heart murmur, no heart fluttering, no chest pain, no ankle swelling. LUNG DISEASE: No shortness of breath, no cough, no tuberculosis, no bloody cough, no as thma, no emphysema/COPD. GASTROINTESTINAL: No bowel disease, no nausea or vomiting, no rectal bleeding, no constip ation, no stool incontinence, no liver disease, no gallbladder disease, no abdominal pain, n o ulcers. KIDNEY DISEASE: + urinary frequency, no painful or difficult urination, no incontinence. ENDOCRINE: + diabetes, no thyroid disease, + osteopenia or osteoporosis, no breast draina ge. SKIN: No breast lumps, + skin changes, no rashes, no itches. HEMATOLOGIC/LYMPHATIC: No enlarged lymph nodes, no easy or unusual bleeding, no personal history of cancer. RHEUMATOLOGIC: No joint arthritis, no rheumatoid arthritis. PHYSICAL EXAMINATION: Blood pressure 111/81, pulse 110, height 1.702 m (5' 7"), weight 133.584 kg (294 lb 8 oz), not currently . Body mass index is 46.11 kg/(m^2). GENERAL: Lucie Miller is in no acute distress with unlabored respirations. The patien kevyn does appear uncomfortable throughout the exam today. HEENT: HEAD/FACE: EYES: EARS: NASOPHARNYX: OROPHARNYX: Normocephalic and atraumatic. There are no areas of recent trauma. Normal sclerae without icterus. No drainage or tenderness. Clear without drainage. Clear without erythema. NECK (ANTERIOR): Supple and without palpable masses. CHEST: Clear to ausculation without crackles or wheeze. HEART: Regular rate and rhythm without murmurs. ABDOMEN: Soft, non-tender, non-distended, and without palpable masses. The patient is obese . SPINE: There is no tenderness in the midline of the cervical or thoracic spine. There is n o major palpable deformity of the spine. The lumbar spine shows there is tenderness in the midline of the L4, L5 levels. To palpati on, there is signficant bilateral myofascial tenderness. EXTREMITIES: No cyanosis, clubbing, or edema. Distal pulses are palpable. NEUROLOGICAL EXAM: MENTAL STATUS: The patient is awake, alert, and oriented. She follows simple and complex commands. Her speech is fluent, she comprehends speech well, and she repeats well. She has no apparent deficits with short or websphere consultant memory. CRANIAL NERVES: II: Acuity is intact. Garcia are full [...] Intrinsics 5 5 Ulnar Intrinsics 5 5 Superintendent Menagerie Strength 5 5 Hip Flexion 5 5 Hip Extension 5 5 Knee Flexion 5 5 Knee Extension 5 5 Dorsiflexion 5 5 Extensor Hallicus Longus 5 5 Plantarflexion 5 5 SENSORY EXAM: Sensory exam shows no diminished sensation to light touch or pain throughout the upper and lower extremities. REFLEXES: (2 OR 2+ IS NORMAL) REFLEX: RIGHT LEFT BICEPS 2+ 2+ BRACHIORADIALIS 2+ 2+ TRICEPS 2+ 2+ PATELLAR 2+ 2+ ACHILLES 2+ 2+ GORDON'S ABSENT ABSENT PLANTAR DOWNGOING DOWNGOING GAIT: Gait is steady. PERIPHERAL NERVE/MISC: Tinel is negative at the wrists and elbows bilaterally. Phalen is negative. Straight leg raise is negative bilaterally. Adriel's test of the hips is negative bilaterally. RADIOGRAPHIC REVIEW: The patient's imaging was reviewed in detail with the patient today during the visit. The MRI of the lumbar spine demonstrates postoperative changes L5-S1. There is spondylolisthesis L4-5. There is wedge deformity of the T12 vertebral body. There is mild central stenosis at L3-4 and severe central stenosis at L4-5 with facet hypertrophy bilaterally. Lumbar flexion and extension views show spondylolisthesis L4-5. ASSESSMENT: NEUROSURGICAL DIAGNOSES: Encounter Diagnoses Name Primary? Spondylolisthesis, lumbar region Yes Lumbar stenosis Chronic midline low back pain without sciatica GENERAL DIAGNOSES: Past Medical History Diagnosis Date Encounter for [...] Echo 12/18/13, LVEF 69%. Prediabetes 12/09/2013 Cataract 8-2013 bilateral History of compression fracture of spine 08/17/2015 OAB (overactive bladder) 11/28/2016 PLAN: Lucie Miller presented today, and it was a pleasure seeing this patient and assessing her problems. The patient has spondylolisthesis and severe stenosis L4-5. This is likely co ntributing to her back pain. I had a lengthy discussion with the patient about her options for care including surgical a nd non-surgical options. She would like to continue conservative management. I will refer h er to Dr. Tovar for bilateral L4-5 facet injections. We talked about the possibility of TLIF L4-5 in the future. She will call after the injections if her symptoms are not improve d. We discussed the risks, alternatives, and benefits to surgical intervention with Ms. Miller in clinic. These risks included but were not limited to , stroke, heart attack, numbn ess, weakness, paralysis, failure of fusion, failure of hardware, subsidence, adjacent segme nt degeneration, cerebrospinal fluid leak, bleeding, infection, injury to surrounding tissue s and organs, injury from positioning, injury to the nerves, difficulty with breathing, diff iculty with swallowing, difficulty with voice change, and need for additional surgery. Surgical options were discussed and the technique to be employed was described in detail to her. All her questions were answered. We discussed that the goal of the surgery is to prevent progression of her disease, but it is not considered a cure. We also discussed that although some patients may obtain 100% sym ptom relief, it is realistic to anticipate that some symptoms will continue postoperatively despite a successful surgery. We also discussed that there is no guarantee that surgery will provide improvement in her c ondition, and indeed may even worsen the symptoms. We also discussed that in the course of the procedure the operative plan may be altered to include more, less, or different levels d epending upon findings in order to provide her with the best possible outcome. ELECTRONICALLY SIGNED BY: Lorenzo Pryor DO, 02/12/2017 17:23 documented in this en counter Plan of Treatment +--------+---------+ + + + | Date | Type | Specialty | Care Team | Description | +--------+---------+ + + + | 11/23/ | Office | Family Medicine | Ivy Sun | | | 2019 | Visit | | JUSTYN [address] | | | | | | [place] | | | | | | [address] | | | | | | | | +--------+---------+ + + + documented as of this encounter Visit Diagnoses + + | Diagnosis | + + | Spondylolisthesis, lumbar region - Primary | + + | Lumbar stenosis Spinal stenosis, lumbar region, without neurogenic claudication | + + | Chronic midline low back pain without sciatica | + + documented in this encounter
--- OUTSIDE RECORDS SUMMARY | ~2019-10-23 | XMS | Encounter Summary ---
Demographics + + + | Address | [address] | | | [place] [address] | + + + | Home Phone | | + + + | Preferred Language | Unknown | + + + | Marital Status | Single | + + + | Voodoo Affiliation | 1077 | + + + | Race | Unknown | + + + | Ethnic Group | Unknown | + + + Author + + + | Author | [facility] | | | and Rainerana | + + + | Organization | [facility] | | | and Rainerana [...] [place], [place] | | | | | [address] | | + + + + + | [place] | ECON | [place], [place] | | | | | [address] | | + + + + + Care Team Providers + +------+ + | Care Clinical Social Work Aide Name | Role | Phone | + +------+ + PCP | Unavailable | + +------+ + Encounter Details +--------+ + + + + | Date | Type | Department | Care Team | Description | +--------+ + + + + | 09/24/ | Hospital | [facility] | | | | 1999 | Encounter | [facility] XRAY [address] | | | | | [address] | | | | | | [place] [address] | | | | | | [phone] | | | +--------+ + + + [...] [place] | | | | | | [id number] | | | | | | | | +--------+---------+ + + + documented as of this encounter Visit Diagnoses Not on filedocumented in this encounter"
--- OUTSIDE RECORDS SUMMARY | ~2019-10-23 | XMS | Encounter Summary ---
Demographics + + + | Address | [address] | | | [place] [address] | + + + | Home Phone [...] | Author | [facility] | | | and Rainerana | + + + | Organization | [facility] | | | and Rainerana [...] [place], [place] | | | | | [address] | | + + + + + | [place] | ECON | [place], [place] | | | | | [address] | | + + + + + Care Team Providers + +------+ + | Care Measurement Specialist Name | Role | Phone | + +------+ + PCP | Unavailable | + +------+ + Encounter Details +--------+ + + + + | Date | Type | Department | Care Team | Description | +--------+ + + + + | 09/17/ | Hospital | [facility] | | | | 2006 | Encounter | MED [facility] LABORATORY | | | | | | [address] | | | | | | [place] | | | | | | [address] | | | | | | [phone] | | | +--------+ + + + [...] [place] | | | | | | [id number] | | | | | | | | +--------+---------+ + + + documented as of this encounter Visit Diagnoses Not on filedocumented in this encounter"
--- OUTSIDE RECORDS SUMMARY | ~2019-10-23 | XMS | Encounter Summary ---
Demographics + + + | Address | [address] | | | [place] [address] | + + + | Home Phone [...] + + + | Author | [facility] | | | and Rainerana | + + + | Organization | [facility] | | | and [...] [place], [place] | | | | | [address] | | + + + + + | J[place]ena [place] | ECON | [place] | | | | | [address] | | + + + + + Care Team Providers + +------+ + | Care Pattern Designer Name | Role | Phone | + [...] Refill | [facility] | [facility] | Medication Refill | | 2019 | | MEDICINE ERMINE | Rishabh, JUSTYN [address] | | | | | [address] | [place] | | | | | [place] | [address] | | | | | [address] | | | | | | [phone] | | | +--------+--------+ + + + [...] [place] | | | | | | [address] | | | | | | | | +--------+---------+ + + + documented as of this encounter Visit Diagnoses Not on filedocumented in this encounter"
--- OUTSIDE RECORDS SUMMARY | ~2019-10-23 | XMS | Encounter Summary ---
Demographics + + + | Address | [address] | | | [place] [address] | + + + | Home Phone | | + + + | Preferred Language | Unknown | + + + | Marital Status | Single | + + + | Rastafari Affiliation | 1077 | + + + | Race | Unknown | + + + | Ethnic Group | Unknown | + + + Author + + + | Author | [facility] | | | and [place] | + + + | Organization | [facility] | | | and [place] [...] [place], [place] | | | | | [address] | | + + + + + | [address] | ECON | [place] | | | | | [address] | | + + + + + Care Team Providers + +------+ + | 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 | Role | Phone | + +------+ + | Ivy Sun | PCP | | + +------+ + Encounter Details +--------+---------+ + + + | Date | Type | Department | Care Team | Description | +--------+---------+ + + + | 11/03/ | Surgery | [facility] | Eleazar Mustafa | DILATION AND | | 2019 | | [facility] | DO Liliana [address] | CURETTAGE/ | | | | [address] | [address] [place] | HYSTEROSCOPY | | | | [place], [place] | [place] [address] | | | | | [address] | [phone] | | | | | [phone] | | | +--------+---------+ + + + [...] + + + | Blood Pressure | 150/114 | 11/03/2018 3:00 PM | | | | | PST | | + + + + + | Pulse | 106 | 11/03/2018 3:00 PM | | | | | PST | | + + + + + | Temperature | 37 C (98.6 F) | 11/03/2018 1:27 PM | | | | | PST | | + + + + + | Respiratory Rate | 11 | 11/03/2018 2:15 PM | | | | | PST | | + + + + + | Oxygen Saturation | 95% | 11/03/2018 3:00 PM | | | | | PST | | + + + + + | Inhaled Oxygen | - | - | | | Concentration | | | | + + + + + | Weight | 135 kg (297 lb 9.9 | 11/03/2018 10:57 AM | | | | oz) | PST | | + + + + + | Height | 170.2 cm (5' 7") | 11/03/2018 10:57 AM | | | | | PST | | + + + + + | Body Mass Index | 46.61 | 11/03/2018 10:57 AM | | | | | PST | | + + + + + documented in this encounter Medications at Time of Discharge [...] + + + +---------+ + + | Blood Glucose | Use to calibrate | 1 each | 0 | 04/08/20 | | | Calibration (OT | glucometer | | | 18 | | | ULTRA/FASTTK CNTRL | | | | | | | SOLN) | | | | | | | SOLNIndications: | | | | | | | Type 2 diabetes | | | | | | | mellitus without | | | | | | | complication, | | | | | | | without long-term | | | | | | | current use of | | | | | | | insulin (HCC), | | | | | | | Impaired fasting | | | | | | | glucose | | | | | | + + + +---------+ + + | Blood Glucose | Use to check blood | 1 each | 0 | 04/08/20 | | | Monitoring Suppl | sugars 3 times | | | 18 | | | (ONE TOUCH ULTRA | weekly. | | | | | | SYSTEM KIT) w/Device | | | | | | | KITIndications: | | | | | | | Type 2 diabetes | | | | | | | mellitus without | | | | | | | complication, | | | | | | | without long-term | | | | | | | current use of | | | | | | | insulin ([facility]), | | | | | | | Impaired fasting | | | | | | | glucose | | | | | | + + + +---------+ + + | glucose blood | Test fasting 3 times | 100 | 4 | 04/03/20 | | | test strips (ONE | weekly, and check | each | | 18 | | | TOUCH ULTRA TEST) | 30 min pre and 2 | | | | | | stripIndications: | hours post main meal | | | | | | Type 2 diabetes | | | | | | | mellitus without | | | | | | | complication, | | | | | | | without long-term | | | | | | | current use of | | | | | | | insulin ([facility]), | | | | | | | Impaired fasting | | | | | | | glucose | | | | | | + + + +---------+ + + | ONE TOUCH | Use to check blood | 100 | 1 | 04/08/20 | | | ULTRASOFT LANCETS | sugars 3 times a | each | | 18 | | | MISCIndications: | week | | | | | | Type 2 diabetes | | | | | | | mellitus without | | | | | | | complication, | | | | | | | without long-term | | | | | | | current use of | | | | | | | insulin (HCC), | | | | | | | Impaired fasting | | | | | | | glucose | | | | | | + + + +---------+ + + | oxybutynin | Take 1 tablet by | 90 | 0 | 02/29/20 | | | (DITROPAN-XL) 10 MG | mouth Daily. | tablet | | 18 | | | 24 hr | | | | | | | tabletIndications: | | | | | | | OAB (overactive | | | | | | | bladder) | | | | | | + + + +---------+ + + | PARoxetine (PAXIL) | TAKE ONE TABLET BY | 90 | 1 | 10/08/20 | | | 40 MG tablet | MOUTH DAILY | tablet | | 18 | | + + + +---------+ + + | UNABLE TO FIND | Med Name: Resmed | | 0 | | | | | AirSense 10 autoset | | | | | | | CPAP: 13-20cm while | | | | | | | sleeping. | | | | | + + [...] 0 | | | | (VITAMIN D3) [id number] | mouth Once a week. | | [...] tablet by | 90 | 0 | 02/29/20 | | | (NEURONTIN) 600 MG | mouth nightly. | tablet | | 18 | 9 | | tablet | | | | | | + + + +---------+ + + | | Take 1 tablet by | 10 | 0 | 11/03/19 | | | HYDROcodone-acetamin | mouth every 6 hours | tablet | | 19 | 9 | | ophen (NORCO) 5-325 | as needed for Pain. | | | | | | mg per tablet | | | | | | + + + +---------+ + + | ibuprofen (ADVIL, | Take 1 tablet by | 30 | 0 | 11/03/19 | | | MOTRIN) 400 mg | mouth every 6 hours | tablet | | 19 | 9 | | tablet | as needed for Pain. | | | | | + + + +---------+ + + | lisinopril | Take 1 tablet by | 90 | 0 | 02/29/20 | | | (PRINIVIL, ZESTRIL) | mouth Daily. | tablet | | 18 | 9 | | 5 mg | | | | | | | tabletIndications: | | | | | | | Essential | | | | | | | hypertension | | | | | | + + + +---------+ + + | metFORMIN | TAKE ONE TABLET BY | 90 | 0 | 02/29/20 | | | (GLUCOPHAGE) 500 mg | MOUTH DAILY WITH | tablet | | 18 | 9 | | tabletIndications: | BREAKFAST | | | | | | Impaired fasting | | | | | | | glucose | | | | | | + + + +---------+ + + | nortriptyline | TAKE THREE CAPSULES | 270 | 0 | 02/29/20 | | | (PAMELOR) 10 MG | BY MOUTH NIGHTLY | capsule | | 18 | 9 | | capsule | | | | | | + + + +---------+ + + | rOPINIRole | TAKE ONE TABLET BY | 90 | 0 | 02/29/20 | | | (REQUIP) 2 MG | MOUTH NIGHTLY | tablet | | 18 | 9 | | tabletIndications: | | | | | | | Restless leg | | | | | | + + + +---------+ + + | simvastatin | TAKE ONE TABLET BY | 90 | 0 | 02/29/20 | | | (ZOCOR) 10 mg | MOUTH ONCE NIGHTLY | tablet | | 18 | 9 | | tabletIndications: | | | | | | | Hyperlipidemia, | | | | | | | unspecified | | | | | | | hyperlipidemia type | | | | | | + + + +---------+ + + | tiZANidine | Take 2 mg every 6-8 | 60 | 0 | 03/06/20 | | | (ZANAFLEX) 2 MG | hours as needed for | tablet | | 18 | 9 | | tablet | muscle spasm. May | | | | | | | increase dose by 2-4 | | | | | | | mg/dose every 1-4 | | | | | | | days. | | | | | + + [...] [place] | | | | | | [id number] | | | | | | | | +--------+---------+ + + + documented as of this encounter Procedures + +--------+ + + + | Procedure Name | Priori | Date/Time | Associated Diagnosis | Comments | | | ty | | | | + +--------+ + + + | DILATION AND | | 11/03/2018 | Postmenopausal | | | CURETTAGE / | | 12:52 PM | bleeding | | | HYSTEROSCOPY | | PST | | | + +--------+ + + + | BASIC METABOLIC | Routin | 11/03/2018 | | Results for this | | PANEL | e | 12:14 PM | | procedure are in the | | | | PST | | results section. | + +--------+ + + + | CBC NO DIFFERENTIAL | Routin | 11/03/2018 | | Results for this | | | e | 11:37 AM | | procedure are in the | | | | PST | | results section. | + +--------+ + + + | TYPE AND SCREEN | Routin | 11/03/2018 | | Results for this | | | e | 11:37 AM | | procedure are in the | | | | PST | | results section. | + +--------+ + + + | SURGICAL PATHOLOGY | Routin | 11/03/2018 | | Results for this | | EXAM | e | 12:00 AM | | procedure are in the | | | | PST | | results section. | + +--------+ + + + documented in this encounter Results Basic Metabolic Panel (11/03/2018 12:14 PM PST) + + + + + + | Component | Value | Ref Range | Performed | Pathologist | | | | | At | Signature | + + + + + + | Na | 139 | 136 - 149 | [facility] | | | | | mmol/L | [facility] | | | | | | [facility] | | | | | | [facility] - | | | | | | LABORATORY | | + + + + + + | K | 3.6 | 3.5 - 5.1 | [facility] | [...] + + + + | CO2 | 26 [...] + + + + | Glucose | 102 | 70 - 109 mg/dL | [facility] | | | | | | [facility] | | | | | | [facility] | | | | | | C[facility] - | | | | | | LABORATORY | | + + + + + + | BUN | 14 | 7 - 18 mg/dL | [facility] | | | | | | [facility] | [facility] | [facility] | | | | | | [facility] - | | | | | | LABORATORY | | + + + + + + | Creatinine | 0.98 | 0.60 - 1.30 | [facility] | | | | | mg/dL | [facility] | | | [facility] | [facility] | | | | | | CENTER - | | | | | | LABORATORY | | + + + + + + | eGFR if not | 57 (L)Comment: | >=60 | [facility] | | | | GLOMERULAR FILTRATION | mL/min/1.73m2 | [facility] | | | [facility] | RATE,ESTIMATED | | MEDICAL | | | | mL/min/1.40f4Xxjw than | | CENTER - | | [...] + + + + | Calcium | 8.9 | 8.3 - 10.5 | [facility] | | | | | mg/dL | [facility] | | | | | | [facility] | | | | | | CENTER - | | | | | | LABORATORY | | + + + + + + | BUN/Creatin | 14.3 | | [facility] | | | ine [...] [address] | [place] | [phone] | | [facility] | | [address] | | | - LABORATORY | | | | + + + + + Type and Screen (11/03/2018 11:37 AM PST) + + + + + + | Component | Value | Ref Range | Performed | Pathologist | | | | | At | Signature | + + + + + + | ABO | A | | [facility] | | | | | | [facility] | | | | | | [facility] | | | | | | CENTER - | | | | | | BLOOD BANK | | + + + + + + | Rh Type | Positive | | [facility] | | | | | | [facility] | | | | | | [facility] | | | | | | CENTER - | | | | | | BLOOD BANK | | + + + + + + | Antibody | Negative | | [facility] | | | Screen | | | [facility] | | | | | | [facility] | | | | | | CENTER - | | | | | | BLOOD BANK | | + + + + + + + + | Specimen | + + | Blood | + + + + + + + | Performing | Address | City/State/Zipcode | Phone Number | | Organization | | | | + + + + + | [facility] | [address] | [place] | | | [facility] | | [address] | | | - BLOOD BANK | | | | + + + + + CBC no Differential (11/03/2018 11:37 AM PST) + + + + + + | Component | Value | Ref Range | Performed | Pathologist | | | | | At | Signature | + + + + + + | WBC | 9.0 | 4.0 - 11.0 K/uL | [facility] | | | [facility] | [facility] | [facility] | | | | | | [facility] - | | | | | | LABORATORY | | + + + + + + | RBC | 4.77 | 3.70 - 5.20 | [facility] | | | | | M/uL | [facility] | | | | | MED[facility] | | | | | | CENTER - | | | | | | LABORATORY | | + + + + + + | Hemoglobin | 15.0 | 11.5 - 16.0 | [facility] | | | | | g/dL | [facility] | | | | | | [facility] | | | | | | C[facility] - | | | | | | LABORATORY | | + + + + + + | Hematocrit | 46.3 | 34.0 - 47.0 % | [facility] | | | | | | [facility] | | | | | | MEDICAL | | | | | | CENTER - | | | | | | LABORATORY | | + + + + + + | MCV | 97.1 | 83.0 - 101.0 fL | [facility] | | | | | | [facility] | | | | | | [facility]ICAL | | | | | | CENTER - | | | | | | LABORATORY | | + + + + + + | MCH | 31.4 | 28.0 - 35.0 pg | [facility] | | | | | | [facility] | | | | | | MEDICAL | | | | | | CENTER - | | | | | | LABORATORY | | + + + + + + | MCHC | 32.4 | 32.0 - 36.0 | [facility] | | | | | g/dL | [facility] | | | | | | MEDICAL | | | | | | CENTER - | | | | | | LABORATORY | | + + + + + + | RDW-CV | 13.1 | <15.0 % | [facility] | | | | | | [facility] | | | | | | MEDICAL | | | | | | CENTER - | | | | | | LABORATORY | | + + + + + + | RDW-SD | 46.8 (H) | 35.1 - 46.3 fL | [facility] | | | | | | [facility] | | | | | | MEDICAL | | | | | | CENTER - | | | | | | LABORATORY | | + + + + + + | Platelet | 298 | 140 - 440 K/uL | [facility] | | | Count | | | [facility] | | | | | | MEDICAL | | | | | | CENTER - | | | | | | LABORATORY | | + + + + + + | MPV | 10.2 | 6.5 - 12.4 fL | [facility] | | | | | | [facility] | | | | | | MEDICAL | | | | | | CENTER - | | | | | | LABORATORY | | + + + + + + | % nRBC | 0 | 0 - 2 per 100 | [facility] | | | | | WBC's | [facility] | | | | | | [facility] | | | | | | C[facility] - | | | | | | LABORATORY | | + + + + + + | Absolute | 0.00 | 0.00 - 0.01 | [facility] | | | nRBC | | K/uL | [facility] | | | | [...] [facility] | [address] | [place], [place] | [phone] | | [facility] | | [address] | | | - LABORATORY | | | | + + + + + Surgical Pathology Exam (11/03/2018 12:00 AM PST) + + | Specimen | + + | | + + + + + | Narrative | Performed At | + + + | SPECIMEN(S): A ENDOCERVICAL CURETTINGS SPECIMEN(S): B ENDOMETRIAL | [facility] | | CURETTINGS SPECIMEN SOURCE: A. ENDOCERVICAL CURETTINGS B. | [facility] | | ENDOMETRIAL CURETTINGS CLINICAL HISTORY: N95.0 (postmenopausal | | | bleeding) FINAL PATHOLOGIC DIAGNOSIS: A. Endocervix, curettage: | | | - Fragments of glandular endocervical mucosa, negative for | | | dysplasia. B. Endometrium, curettage: - Endometrial polyps. - | | | Negative for dysplasia or malignancy. DD:[facility]:C2NR | | | MICROSCOPIC EXAMINATION: Histologic sections of all submitted blocks | | | are examined by light microscopy. These findings, together with the | | | gross examination, support the pathologic diagnosis. GROSS | | | DESCRIPTION: A. Specimen A, received in formalin, labeled | | | "endocervical curettings," consists of a 1.6 x 0.7 x 0.2 cm aggregate | | | of blood-tinged mucus with admixed scant tissue fragments. Entirely | | | submitted in (A1). B. Specimen B, received in formalin, labeled | | | "Paul," and designated as "endometrial curettings," consists of a | | | 2.7 x 2.2 x 0.6 cm aggregate of variegated trevizo-white to red fragments. | | | Entirely submitted in (B1). am:AMB:glc PERFORMING LABORATORY: | | | The technical component was performed by [facility], [address] | | | [facility] [address] ([employer] Equipment Technology Instructor: Nadia Medina MD; | | | CLIA# [id number]). Professional interpretation was performed by | | | [facility], [facility], [address] [place] [address] | | | [place] [address] ([employer] Equipment [employer] Instructor: Kody Willingham MD; | | | CLIA# [id number]). Diagnostician: Kody Willingham MD | | | Pathologist Electronically Signed 11/04/2018 | | + + + + +---------+ + + | Performing | Address | City/State/Zipcode | Phone Number | | Organization | | | | + +---------+ + + | [facility] | | | | | [facility] | | | | + +---------+ + + documented in this encounter Visit Diagnoses + + | Diagnosis | + + | Postmenopausal bleeding | + + documented in this encounter Administered Medications + +--------+ + +------+------+ | Medication Order | MAR | Action | Dose | Rate | Site | | | Action | Date | | | | + +--------+ + +------+------+ | acetaminophen (TYLENOL) tablet | Given | 11/03/19 | 1,000 mg | | | | 1,000 mg 1,000 mg, Oral, ONCE, | | 19 11:36 | | | | | 11/03/18 at 1130, For 1 dose, | | AM PST | | | | | Pre-op | | | | | | + +--------+ + +------+------+ + +---+ | | | + +---+ | albuterol-ipratropium 2.5-0.5 | | | mg/3 mL nebulizer solution 3 mL | | | 3 mL, Nebulization, ONCE PRN, | | | Wheezing, Starting 11/03/18 at | | | 1104, For 1 dose, Pre-op | | + +---+ | | | + +---+ | albuterol-ipratropium 2.5-0.5 | | | mg/3 mL nebulizer solution 3 mL | | | 3 mL, Nebulization, ONCE PRN, | | | Wheezing, Shortness of Breath, | | | Starting Sat11/03/18 at 1326, For | | | 1 dose, Recovery/Phase I | | + +---+ | | | + +---+ | dextrose 50% injection 12.5-25 | | | g 12.5-25 g, Intravenous, EVERY | | | 15 MIN PRN, Low Blood Sugar, Give | | | 12.5g (25 mL) IV if blood | | | glucose 50-69 mg/dL. Give 25g | | | (50 mL) IV if blood glucose < 50, | | | Starting 11/03/18 at 1104, | | | Repeat in 15 min if blood glucose | | | remains < 70 mg/dL. Repeat | | | blood glucose in 30 min once | | | blood glucose > 70., Pre-op | | + +---+ | | | + +---+ | dextrose 50% injection 12.5-25 | | | g 12.5-25 g, Intravenous, EVERY | | | 15 MIN PRN, Low Blood Sugar, For | | | hypoglycemia. Give 12.5g (25ml) | | | IV if blood glucose 50-69 | | | mg/dL. Give 25g (50ml) IV if | | | blood glucose < 50, Starting Mon | | | 11/03/18 at 1326, Give over 2 min. | | | Repeat in 15 min if blood | | | glucose remains < 70 mg/dL. | | | Repeat blood glucose in 30 min | | | once blood glucose > 70., | | | Recovery/Phase I | | + +---+ | | | + +---+ | ePHEDrine 50 mg/mL injection 5 | | | mg 5 mg, Intravenous, EVERY 5 | | | MIN PRN, if SBP <90., Starting | | | 11/03/18 at 1326, Hold if HR > | | | 100. Maximum total dose 20mg., | | | Recovery/Phase I | | + +---+ | | | + +---+ + +-------+ +--------+---+---+ | fentaNYL (PF) injection 25-50 | Given | 11/03/19 | 50 mcg | | | | mcg 25-50 mcg, Intravenous, | | 19 1:50 | | | | | EVERY 5 MIN PRN, Pain, Starting | | PM PST | | | | | 11/03/18 at 1326, Maximum total | | | | | | | dose 250 mcg. PACU IV Narcotic | | | | | | | Priority: Only use fentanyl for | | | | | | | immediate post-op pain (one dose) | | | | | | | or breakthrough pain when any | | | | | | | other IV narcotics ordered have | | | | | | | been ineffective (if ordered). | | | | | | | If both morphine and | | | | | | | hydromorphone are ordered, use | | | | | | | morphine first, and use | | | | | | | hydromorphone if morphine | | | | | | | ineffective., Recovery/Phase I | | | | | | + +-------+ +--------+---+---+ +-------+ +--------+---+---+ | Given | 11/03/19 | 50 mcg | | | | | 19 1:40 | | | | | | PM PST | | | | +-------+ +--------+---+---+ +---+---+ | | | +---+---+ + +-------+ +--------+---+---+ | gabapentin (NEURONTIN) capsule | Given | 11/03/19 | 600 mg | | | | 600 mg 600 mg, Oral, ONCE, Sat | | 19 11:36 | | | | | 11/03/18 at 1130, For 1 dose, | | AM PST | | | | | Pre-op | | | | | | + +-------+ +--------+---+---+ + +---+ | | | + +---+ | glycopyrrolate (ROBINUL) | | | injection 0.2 mg 0.2 mg, | | | Intravenous, PRN, Bradycardia, | | | For HR <50, Starting 11/03/18 | | | at 1326, For 2 doses, May repeat | | | one time after 1min, | | | Recovery/Phase I | | + +---+ | | | + +---+ | hydrALAZINE (APRESOLINE) | | | injection 5 mg 5 mg, | | | Intravenous, EVERY 20 MINUTES | | | PRN, For SBP > 180, DBP > 100, | | | Starting Sat11/03/18 at 1326, Hold | | | if HR > 100. Maximum total dose | | | 40 mg. Use labetalol first if | | | available., Recovery/Phase I | | + +---+ | | | + +---+ | HYDROmorphone (DILAUDID) | | | injection 0.2-0.5 mg 0.2-0.5 mg, | | | Intravenous, EVERY 5 MIN PRN, | | | Pain, Starting 11/03/18 at | | | 1326, Maximum total dose 4 mg. | | | PACU IV Narcotic Priority: Only | | | use fentanyl for immediate | | | post-op pain (one dose) or | | | breakthrough pain when any other | | | IV narcotics ordered have been | | | ineffective (if ordered). If | | | both morphine and hydromorphone | | | are ordered, use morphine first, | | | and use hydromorphone if morphine | | | ineffective., Recovery/Phase I | | + +---+ | | | + +---+ | ibuprofen (ADVIL, MOTRIN) | | | tablet 400 mg 400 mg, Oral, | | | EVERY 8 HOURS (3 times per day), | | | First dose on Sat11/04/18 at 1800, | | | For 9 doses, If urine output is | | | less than 240ml/8 hours (30ml/hr) | | | or if signs of bleeding, contact | | | MD and hold. Administer with | | | food or snack, Post-op/Phase II | | + +---+ | | | + +---+ | ketorolac (TORADOL) injection | | | 15 mg 15 mg, Intravenous, EVERY | | | 6 HOURS (4 times per day), First | | | dose on Sat11/03/18 at 2000, For 4 | | | doses, If urine output is less | | | than 240ml/8 hours (30ml/hr) or | | | if signs of bleeding, contact MD | | | and hold., Post-op/Phase II | | + +---+ | | | + +---+ + +-------+ +-------+---+---+ | ketorolac (TORADOL) injection | Given | 11/03/19 | 30 mg | | | | 30 mg 30 mg, Intravenous, ONCE, | | 19 1:47 | | | | | 11/03/18 at 1400, For 1 dose, | | PM PST | | | | | Recovery/Phase I | | | | | | + +-------+ +-------+---+---+ + +---+ | | | + +---+ | labetalol (TRANDATE) 5 mg/mL | | | injection 5 mg 5 mg, | | | Intravenous, EVERY 5 MIN PRN, For | | | SBP > 180, DBP > 100, Starting | | | 11/03/18 at 1326, Hold if HR < | | | 60. Maximum total dose 300mg. | | | Notify anesthesia if patient | | | requires more than 50mg., | | | Recovery/Phase I | | + +---+ | | | + +---+ + +---------+ +--------+-------+---+ | lactated ringers (LR) infusion | New Bag | 11/03/19 | 1,000 | 100 | | | at 10-100 mL/hr, Intravenous, | | 19 1:57 | mLs | mL/hr | | | CONTINUOUS, Starting 11/03/18 | | PM PST | | | | | at 1130, TKO., Pre-op | | | | | | + +---------+ +--------+-------+---+ +---------+ +--------+-------+ + | New Bag | 11/03/19 | 1,000 | 100 | Left Arm | | | 19 11:39 | mLs | mL/hr | | | | AM PST | | | | +---------+ +--------+-------+ + + +---+ | | | + +---+ | meperidine (DEMEROL) injection | | | 12.5-25 mg 12.5-25 mg, | | | Intravenous, PRN, Shivering, | | | Starting 11/03/18 at 1326, For | | | 2 doses, May Repeat once in 5 | | | min., Recovery/Phase I | | + +---+ | | | + +---+ | metoclopramide (REGLAN) 5 mg/mL | | | injection 10 mg 10 mg, | | | Intravenous, EVERY 6 HOURS PRN, | | | Nausea, Vomiting, Starting Mon | | | 11/03/18 at 1326, Protect from | | | light., Recovery/Phase I | | + +---+ | | | + +---+ + +-------+ +------+---+---+ | ondansetron (ZOFRAN ODT) | Given | 11/03/19 | 8 mg | | | | disintegrating tablet 8 mg 8 mg, | | 19 11:37 | | | | | Oral, ONCE, 11/03/18 at 1130, | | AM PST | | | | | For 1 dose, Give prior to | | | | | | | surgical procedure., Pre-op | | | | | | + +-------+ +------+---+---+ + +---+ | | | + +---+ | ondansetron (ZOFRAN) injection | | | 4 mg 4 mg, Intravenous, ONCE | | | PRN, Nausea, Starting 11/03/18 | | | at 1326, For 1 dose, | | | Recovery/Phase I | | + +---+ | | | + +---+ | scopolamine (TRANSDERM-SCOP) 1 | | | mg/3 days 1 patch 1 patch, | | | Transdermal, PRN, adult patients | | | with history of PONV, Starting | | | Sat11/03/18 at 1104, PRN for adult | | | patients <65 yo with history of | | | PONV. Hold for patients with | | | glaucoma, dementia, altered | | | mental status, or history of | | | allergy to Scopolamine. Apply to | | | mastoid process Each patch is | | | designed to deliver 1 mg over 3 | | | days. DO NOT CUT patch., Pre-op | | + +---+ | | | + +---+ | sodium chloride 0.9% (NS) | | | infusion at 10-100 mL/hr, | | | Intravenous, CONTINUOUS, Starting | | | Sat11/03/18 at 1130, TKO. Use | | | this instead of LR if patient is | | | on dialysis., Pre-op | | + +---+ | | | + +---+ documented in this encounter
--- OUTSIDE RECORDS SUMMARY | ~2019-10-23 | XMS | Encounter Summary ---
Demographics + + + | Address | [address] | | | [place] [address] | + + + | Home Phone | | + + + | Preferred Language | Unknown | + + + | Marital Status | Single | + + + | Presybeterian Affiliation | Unknown | + + + | Race | White | + + + | Ethnic Group | Not or | + + + Author + + + | Author | [facility] | + + + | Organization | [facility] | + + + | Address | Unknown | + + + | Phone | Unavailable | + + + Support + + + + + | Name | Relationship | Address | Phone | + + + + + | Aleks Noguera | BRYANT | [address] | | | | | [place] | | | | | [address] | | + + + + + Care Team Providers + +------+ + | Care Geosciences Faculty Member Name | Role | Phone | [...] + + | 04/26/ | Office | [facility] | Shelby Saldana, | Essential | | 2008 | Visit | at [facility] | ,[facility] [address] | Hypertension--OFF | | | | [address] | [facility] | MEDS FOLLOW | | | | Loop Mailcode: | [place], [place] | (Primary Dx); | | | | [id number] | [id number] | Hypokalemia--- 2.? | | | | Kathryn Mar, | [phone] | [place] [address] | | | | [place] [address] | | HCTZ. 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 No PND No Orthopnea. 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 GI occ heartburn NEG FOR ROS OF OV CA. ENDO- No symptoms of diabetes or throid problems. NEURO- NO PROGRESS OF R FOOT DROP No hx of CVA DOES FALL FREQ ALLERGY- mild seasonal. PSYCHIATRY- No self harm issues Physical Examination: Blood pressure 120/90, height 1.702 m (5' 7"), weight 119.75 kg (264 lb). Body mass index is 41.35 kg/(m^2). 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
--- OUTSIDE RECORDS SUMMARY | ~2019-10-23 | XMS | Encounter Summary ---
Demographics + + + | Address | [address] | | | [place] [address] | + + + | Home Phone | | + + + | Preferred Language | Unknown | + + + | Marital Status | Single | + + + | Church Affiliation | 1077 | + + + | Race | Unknown | + + + | Ethnic Group | Unknown | + + + Author + + + | Author | [facility] | | | and [place]ainerana | + + + | Organization | [facility] | | | and Rainerana [...] [place], [place] | | | | | [address] | | + + + + + | Jelena Hill | ECON | [place] | | | | | [address] | | + + + + + Care Team Providers + +------+ + | Care Legal Entity Controller Name | Role | Phone | [...] 2013 | | [facility] | L, [employer] [address] | | | | | [address] | [address] [place] | | | | | [place] | [address] | | | | | [address] | | | | | | [phone] | | | +--------+ + + + [...] [place] | | | | | | [address] | | | | | | | [...] + | [facility] | [address] | [place] | [phone] | | [facility] | | [address] | | | - LABORATORY | | | | + + + + + | [facility] | [address] | [place], [place] | | | [facility] | | [address] | | | - LABORATORY | | [...] + | [facility] | [address] | [place], [place] | [phone] | | [facility] | | [address] | | | - LABORATORY | | | | + + + + + | [facility] | [address] | [place], [place] | | | [facility] | | [address] | | | - LABORATORY | | [...] | | | | | | | Tunisian, | | | | | | External [...]
--- OUTSIDE RECORDS SUMMARY | ~2019-10-23 | XMS | Encounter Summary ---
Demographics + + + | Address | [address] | | | [place] [address] | + + + | Home Phone | | + + + | Preferred Language | Unknown | + + + | Marital Status | Single | + + + | Rastafarian Affiliation | 1077 | + + + | Race | Unknown | + + + | Ethnic Group | Unknown | + + + Author + + + | Author | [facility] | | | and [place] | + + + | Organization | [facility] | | | and [...] [place], [place] | | | | | [address] | | + + + + + | Jelena Hill | ECON | [place] | | | | | [address] | | + + + + + Care Team Providers + +------+ + | Care Nurse Case Manager Name | Role | Phone | + +------+ + | Ivy Sun | PCP | | + +------+ + Encounter Details +--------+ + + + + | Date | Type | Department | Care Team | Description | +--------+ + + + + | 08/28/ | Hospital | [facility] | Lorenzo Pryor, | Midline low back | | 2016 | Encounter | [facility] | DO [address] | pain with sciatica, | | | | [address] [place] | [address] [place], [place] | sciatica laterality | | | | [place], [place] | [address] | unspecified, | | | | [address] | | unspecified | | | | [phone] | | chronicity | +--------+ + + [...] [place] | | | | | | [address] | | | | | | | [...] COMPARISON: Thoracic MRI 08/01/2016; 08/17/2015 radiographs. | [facility] | | FINDINGS: Focal levoscoliosis centered around T4-T5. [facility] | [facility] | | compensatory upper lumbar dextroscoliosis. [...] + | [facility] | [address] | [place] | [phone] | | [facility] | | [address] | | | - IMAGING | | | | + + + + + documented in this encounter Visit Diagnoses + + | Diagnosis | + + | Midline low back pain with sciatica, sciatica laterality unspecified, unspecified | | chronicity | + + documented in this encounter"
--- OUTSIDE RECORDS SUMMARY | ~2019-10-23 | XMS | Encounter Summary ---
Demographics + + + | Address | [address] | | | [place] [address] | + + + | Home Phone | | + + + | Preferred Language | Unknown | + + + | Marital Status | Single | + + + | Yarsanism Affiliation | [id number] | + + + | Race | Unknown | + + + | Ethnic Group | Unknown | + + + Author + + + | Author | [facility] | | | and [place] | + + + | Organization | [facility] | | | and [...] [place], [place] | | | | | [address] | | + + + + + | Jelena [address] | ECON | [place] | | | | | [address] | | + + + + + Care Team Providers + +------+ + | Care Steel Construction Worker Name | Role | Phone | + +------+ + | Ivy Sun | PCP | | + +------+ + Reason for Visit + + + | Reason | Comments | + + + | Medicare Wellness | welcome to medicare | + + + Encounter Details +--------+---------+ + + + | Date | Type | Department | Care Team | Description | +--------+---------+ + + + | 08/29/ | Office | [facility] | Ivy Sun | Welcome to Medicare | | 2017 | Visit | [facility] | L, JUSTYN [address] | preventive visit | | | | [address] | [place], [place] | (Primary Dx); | | | | [place], [place] | [address] | Routine history and | | | | [address] | | physical examination | | | | [phone] | | of adult; OAB | | | | | | (overactive | | | | | | bladder); POLST | | | | | | (Physician Orders | | | | | | for Life-Sustaining | | | | | | Treatment) | +--------+---------+ + + + Social History [...] + + + | Blood Pressure | 116/68 | 08/29/2017 11:24 AM | | | | | PDT | | + + + + + | Pulse | 127 | 08/29/2017 11:24 AM | | | | | PDT | | + + + + + | Temperature | 36.9 C (98.4 F) | 08/29/2017 11:24 AM | | | | | PDT | | + + + + + | Respiratory Rate | 18 | 08/29/2017 11:24 AM | | | | | PDT | | + + + + + | Oxygen Saturation | 95% | 08/29/2017 11:24 AM | | | | | PDT | | + + + + + | Inhaled Oxygen | - | - | | | Concentration | | | | + + + + + | Weight | 128 kg (282 lb 3 oz) | 08/29/2017 11:24 AM | | | | | PDT | | + + + + + | Height | 170.2 cm (5' 7") | 08/29/2017 11:24 AM | | | | | PDT | | + + + + + | Body Mass Index | 44.2 | 08/29/2017 11:24 AM | | | | | PDT | | + + + + + documented in this encounter Patient Instructions Patient Instructions Dea Cevallos, Pull Worker - 09/02/2017 1:41 PM PSTFormat ting of this note might be different from the original. Your Personalized Preventive Plan Name: Lucie Yaron Kimwood Thank you for taking time to come [...] visit meaningful. Based on today s data 08/29/17 HERE IS YOUR CURRENT HEALTH MAINTENANCE RECORD AND SCHEDULE Health Maintenance Topic Date Due BREAST CANCER SCREENING (MAMM Q2 YEARS 50-74) 04/10/2018 Pneumo Imm PCV13/PPSV23 (65+) (2 of 2 - PPSV23) 07/30/2018 COLON CANCER SCREENING (COLONOSCOPY EVERY 10 YEARS 50-75) 05/20/2021 DTaP/Tdap/Td IMM (3 - Td) 07/24/2026 Hepatitis C Screening Completed Vaccine: Influenza Completed Zostavax IMM Completed HERE IS YOUR CURRENT IMMUNIZATION RECORD [...] BY MOUTH NIGHTLY 270 capsule 1 oxybutynin (DITROPAN-XL) 10 MG 24 hr [...] visit. THE FOLLOWING RECOMMENDATIONS WERE MADE TODAY No orders of the defined types were placed in this encounter. (Referrals made at this encounter) none BASED ON THE HEALTH RISK QUESTIONARRE YOU FILLED OUT THE FOLLOWING INFORMATION MAY BE USEFU L Low fat diet. Increase acitivity. documented in this encounter Progress Notes Ivy Sun ARNP - 08/29/2017 11:30 AM PDTFormatting of this note might be differen t from the original. Lucie Miller is a 67 y.o. female Chief Complaint: Medicare Wellness (welcome to medicare) HPI Medicare Annual Wellness Visit Lucie Miller is a 67 y.o. female who presents for a Medicare Wellness Visit today, 08/29/2017. Current concerns Upcoming appointment with sleep medicine to follow up for her sleep apnea. Seen by Endocrinology and had a recent DEXA scan and was instructed to take Vitamin D3, 50, 000 IU once per week. Will schedule an appointment with Dr. Wolf soon for an annual check up. Needing Dr. Wolf to clear her for surgeries. Needing a bladder augmentation, cataract surgery, total right knee, spinal fusion and tonsi llectomy. She has her mammogram scheduled at [facility] in [facility]. Health Risk Assessment The patient or their surrogate filled out the HRA; their responses are included here: (From the Medicare Wellness Visit tab in Flowshe[employer]; printable questionnaire for [facility] and [facility] [employer]) GENERAL HEALTH 1. How would you describe your general health? : Fair 2. How would you rate your health compared to others your age?: (!) Worse HEARING AND VISION 1. Do you feel [...] year?: (!) Yes 1a. How many times?: 1 1b. Were you injured?: No 2. Do you feel unsteady when standing or walking?: No 3. Do you worry about falling?: No 4. Do you use (or were you told to use) a cane or walker to get around safely?: No 5. Do you have to steady yourself by holding onto furniture when moving about your home?: N o 6. Do you need to push with your hands to stand up from a chair?: (!) Yes 7. Do you have trouble stepping up onto a curb?: No 8. Do you often have to jara to the toilet?: (!) Yes 9. Have you lost some of the feeling in your feet?: No 10. Do you take any medicine that makes you feel light-headed or tired?: No 11. Do you take medicine to help you sleep or improve your mood?: (!) Yes 12. Do you often feel sad or depressed?: No STEADI Fall risk questionnaire score: 5 GET UP AND GO TEST: Performed in clinic Seconds it takes to get up from an arm chair, walk to a specified point (8-10 feet) turn ar ound, walk back, and sit again: <12 Seconds: Low Fall Risk DIET AND EXERCISE HISTORY 1. How is [...] holding your bowels or bladder?: (!) Yes Depression screening Little interest/pleasure in doing things? : Not at all (08/29/17 1100) Feeling down, depressed/hopeless?: Not at all (08/29/17 1100) Depression screening performed with PHQ-2: result is normal (negative). Problem list Patient Active Problem List Diagnosis Osteopenia HYPERLIPIDEMIA ANXIETY OBESITY VITAMIN D DEFICIENCY COLONIC POLYPS, ADENOMATOUS, HX OF IMPAIRED FASTING GLUCOSE HYPERTENSION Obstructive sleep apnea Restless legs syndrome Routine general medical examination at a health care facility Prediabetes H/O diagnostic tests Aortic root enlargement Postmenopausal vaginal bleeding History of compression fracture of spine OAB (overactive bladder) Past Medical History Past Medical History: Diagnosis Date Abnormal glandular [...] 08/17/2015 Insomnia, unspecified Menopausal and perimenopausal disorder 2003 OAB (overactive bladder) 11/28/2016 Obesity, unspecified Osteoporosis Other and unspecified hyperlipidemia Other seborrheic keratosis Prediabetes 12/09/2013 Restless leg syndrome Rosacea 10/14/2013 Rotator cuff (capsule) sprain Routine gynecological examination Seborrheic dermatitis 10/14/2013 Sleep apnea Smoker Sprain of ankle, unspecified site Past Surgical History Past Surgical History: Procedure Laterality Date BUNIONECTOMY Right 1986 DILATION AND CURETTAGE OF UTERUS 06/03/2014 HYSTEROSCOPY FRACTIONAL D&C; Laterality: N/A; Surgeon: Eleazar Mustafa DO; Locat ion: [facility] MAIN OR ENDOMETRIAL BIOPSY 2002 GASTROPLASTY 1986 KNEE ARTHROSCOPY Left [address] Harris TOE SURGERY TOTAL KNEE ARTHROPLASTY Left 07/15/13 Family History Family History Problem Relation Age of Onset Alzheimer's disease Mother Heart disease Maternal Grandfather Stroke Maternal Grandfather Heart attack Father Heart surgery Father bypass Stroke Father Stroke Paternal Grandfather Heart disease Paternal Grandmother Obesity Maternal Grandmother Other (see comment) Maternal Grandmother Pancreatitis No Known Problems Brother Thyroid disease Sister Lung cancer Paternal Uncle Heart disease Paternal Uncle No Known Problems Paternal Aunt No Known Problems Paternal Aunt Diabetes Maternal Uncle Diabetes Maternal Aunt Social History Marital status: Single [1], significant other of 27 years. Patient lives with their spouse. Currently working? Retired Substance use Tobacco: History Smoking Status Former Smoker Packs/day: 0.50 Years: 15.00 Types: Cigarettes Start date: 11/19/1999 Quit date: 11/19/2014 Smokeless Tobacco Never Used . Alcohol: History Alcohol Use 0.0 oz/week Comment: rarely . Alcohol abuse screen was performed The Past Medical, Surgical, and Family History have been reviewed and updated at this visit : yes Current medications Current Outpatient Prescriptions Medication Sig Dispense Refill [...] Allergies No Known Allergies Current list of providers and DME suppliers Patient Care Team: JUSTYN Butt as PCP - General Current Medicare suppliers [facility] [place], [place] - [address] [place] [address] [id number] - [facility] [place] - [address] [place] [address] Immunizations Immunization History Administered Date(s) Administered INFLUENZA PF 18 Y OR >,TRIVALENT RECOMBINANT 08/25/2012, 10/14/2013 INFLUENZA PF 4Y OR >,QUAD DERIVED FROM TISS-CULT 07/30/2017 INFLUENZA PF QUAD(PED/ADOL/ADULT),PSKT or VIAL 11/10/2014, 08/17/2015, 07/24/2016 PNEUMOCOCCAL CONJUGATE 13-VALENT (PCV13) 07/30/2017 PNEUMOCOCCAL POLYSACCHARIDE 23-VALENT (PPSV23) 08/25/2012 TDAP, (ADOL/ADULT) 01/15/2007, 07/24/2016 ZOSTER, 1 DOSE (ADULT) 05/13/2013 Preventative care and screening (Attestation) The following health maintenance items are reviewed in [facility] and correct as of today: Health Maintenance Topic Date Due BREAST CANCER SCREENING (MAMM Q2 YEARS 50-74) 04/10/2018 Pneumo Imm PCV13/PPSV23 (65+) (2 of 2 - PPSV23) 07/30/2018 COLON CANCER SCREENING (COLONOSCOPY EVERY 10 YEARS 50-75) 05/20/2021 DTaP/Tdap/Td IMM (3 - Td) 07/24/2026 Hepatitis C Screening Completed Vaccine: Influenza Completed Zostavax IMM Completed Review of systems Review of Systems Constitutional: Negative for malaise/fatigue. HENT: Negative for congestion, ear pain, hearing loss, sore throat and tinnitus. Eyes: Negative for double vision, pain and discharge. Respiratory: Negative for cough, sputum production, shortness of breath and wheezing. Cardiovascular: Negative for chest pain, palpitations and leg swelling. Gastrointestinal: Negative for abdominal pain, blood in stool, constipation, diarrhea, hear tburn, nausea and vomiting. Genitourinary: Positive for frequency and urgency. Negative for dysuria and hematuria. Musculoskeletal: Positive for joint pain. Negative for myalgias. Skin: Negative for rash. Neurological: Negative for dizziness, tingling and headaches. Psychiatric/Behavioral: Negative for depression. The patient is not nervous/anxious and jennings s not have insomnia. ADVANCED CARE PLANNING 1. Do you have an Advanced Directive?: No 2. Have you completed a POLST form?: (!) No 3. If you have a designated health care access representative, give their name and contact informa tion: none Advanced directive, POLST or E-POLST reviewed at this visit? yes PREVENTIVE CARE/PRIOR VISITS 1. Any recommendations from Health Maintenance: no Preventative Services TOPIC LAST DONE NEXT DUE Hepatitis C Screening 07/30/2017 Vaccine: Influenza 07/30/2017 Colon Cancer Screening (Colonoscopy Every 10 Years 50-75) 05/20/2011 05/20/2021 Breast Cancer Screening (Mamm Q2 Years 50-74) 04/10/2016 04/10/2018 Dtap/Tdap/Td Imm 07/24/2016 07/24/2026 Pneumo Imm Pcv13/Ppsv23 (65+) 07/30/2017 07/30/2018 Zostavax Imm 05/13/2013 2. Any immunizations necessary: no Immunization History Administered Date(s) Administered INFLUENZA PF [...] has been changed since signin Order Audit [place] Calcium Carb-Cholecalciferol (CALCIUM 1000 + D) 1000-800 MG-UNIT TABS (Taking) Take 1 tab let by mouth Daily. Number of times this order has been changed since signin Order [facility] [place] FreeStyle Lancets MISC (Taking) Test blood sugar twice daily. 790.29 Number of times this order has been changed since signin Order Audit [place] gabapentin (NEURONTIN) 600 MG tablet (Taking) Take 1 tablet by mouth nightly. glucose blood test strips (FREESTYLE LITE) strip (Taking) Test blood sugar twice daily . 790.29 Number of times this order has been changed since signin Order Audit [place] lisinopril (PRINIVIL, ZESTRIL) 5 mg tablet (Taking) Take 1 tablet by mouth Daily. metFORMIN (GLUCOPHAGE) 500 mg tablet (Taking) TAKE ONE TABLET BY MOUTH DAILY WITH BREAKFA ST methocarbamol (ROBAXIN) 500 mg tablet (Taking) Take 1 tablet by mouth 4 times daily. nortriptyline (PAMELOR) 10 MG capsule (Taking) TAKE THREE CAPSULES BY MOUTH NIGHTLY oxybutynin (DITROPAN XL) 5 mg 24 hr tablet (Taking) Take 1 tablet by mouth Daily. PARoxetine (PAXIL) 40 MG tablet (Taking) TAKE ONE TABLET BY MOUTH DAILY rOPINIRole (REQUIP) 2 MG tablet (Taking) TAKE ONE TABLET BY MOUTH NIGHTLY simvastatin (ZOCOR) 10 mg tablet (Taking) TAKE ONE TABLET BY MOUTH ONCE NIGHTLY UNCODED MEDICATION (Taking) Diagnosis: Obstructive Sleep Apnea ICD-9: 327.23 Length of Need: 99 Months Number of times this order has been changed since signin Order Audit [place] UNCODED MEDICATION (Taking) Wear at all times while sleeping. Number of times this order has been changed since signin Order Audit [place] Past Medical History She has a past medical history of Abnormal glandular Papanicolaou smear of cervix; Anxiety state, unspecified; Aortic root enlargement (HCC) (01/13/2014); Bronchitis, not specified as acute or chronic; Cataract (); Depressed; Disorder of bone and cartilage, unspecified; Eczema; Encounter for hearing conservation and treatment; Essential hypertension, benign; H /O diagnostic tests (12/14/2013); Hearing loss; History of compression fracture of spine (); Insomnia, unspecified; Menopausal and perimenopausal disorder (2003); OAB (overact venancio bladder) (11/28/2016); Obesity, unspecified; Osteoporosis; Other and unspecified hyperlipi demia; Other seborrheic keratosis; Prediabetes (12/09/2013); Restless leg syndrome; Rosacea ( 10/14/2013); Rotator cuff (capsule) sprain; Routine gynecological examination; Seborrheic de rmatitis (10/14/2013); Sleep apnea; Smoker; and Sprain of ankle, unspecified site. Past Surgical History She has a past surgical history that includes lumbar laminectomy (1991); gastroplasty (1985 ); Bunionectomy (Right, 1986); Toe Surgery; Endometrial biopsy (2001); Knee arthroscopy (Lef [place], 2005); Total knee arthroplasty (Left, 07/15/13); and [...] aternal uncle; No Known Problems in her brother, paternal aunt, and paternal aunt; Obesity i n her maternal grandmother; Other (see comment) in her maternal grandmother; Stroke in her f ather, maternal grandfather, and paternal grandfather; Thyroid disease in her sister. 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 HENT: Negative for congestion, ear pain, hearing loss, sore throat and tinnitus. Eyes: Negative for double vision, pain and discharge. Respiratory: Negative for cough, sputum production, shortness of breath and wheezing. Cardiovascular: Negative for chest pain, palpitations and leg swelling. Gastrointestinal: Negative for abdominal pain, blood in stool, constipation, diarrhea, hear tburn, nausea and vomiting. Genitourinary: Positive for frequency and urgency. Negative for dysuria and hematuria. Musculoskeletal: Positive for joint pain. Negative for myalgias. Skin: Negative for rash. Neurological: Negative for dizziness, tingling and headaches. Psychiatric/Behavioral: Negative for depression. The patient is not nervous/anxious and jennings s not have insomnia. Objective: Vitals: 08/29/17 1124 BP: 116/68 Pulse: 127 Resp: 18 Temp: 36.9 C (98.4 F) TempSrc: Temporal SpO2: 95% Weight: 128 kg (282 lb 3 oz) Height: 1.702 m (5' 7") Physical Exam Constitutional: She is oriented to person, place, and time. She appears well-developed and well-nourished. No distress. HENT: Head: Normocephalic and atraumatic. Right Ear: Tympanic membrane, external ear and ear canal normal. No drainage or tenderness. Tympanic membrane is not injected, not erythematous and not bulging. Left Ear: Tympanic membrane, external ear and ear canal normal. No drainage or tenderness. Tympanic membrane is not injected and not erythematous. Tympanic membrane mobility is normal . Nose: Rhinorrhea present. No sinus tenderness. No epistaxis. Mouth/Throat: Uvula is midline, oropharynx is clear and moist and mucous membranes are norm al. No oral lesions. No oropharyngeal exudate, posterior oropharyngeal edema, posterior orop haryngeal erythema or tonsillar abscesses. Hearing aids present bilaterally. Eyes: Conjunctivae are normal. Pupils are equal, round, and reactive to light. Right eye ex hibits no discharge. Left [...] No rash noted. She is not diaphoretic. Psychiatric: She has a normal mood and affect. Her behavior is normal. Nursing note and vitals reviewed. Ortho Exam Results for orders placed or performed in visit on 07/30/17 Hepatitis C Ab Result Value Ref Range Hepatitis C Ab See Comments NR Comprehensive Metabolic Panel Result Value Ref Range NA 140 136 - 149 mmol/L K 3.7 3.5 - 5.1 mmol/L CL 102 98 - 109 mmol/L CO2 28 24 - 31 mmol/L ANION GAP 10 3 - 16 mmol/L GLUCOSE 121 (H) 70 - 109 mg/dL BUN 14 7 - 18 mg/dL Creatinine, Serum/Plasma 0.82 0.60 - 1.30 mg/dL eGFR if not >60 >=60 mL/min/1.73m2 CALCIUM 9.1 8.3 - 10.5 mg/dL ALBUMIN 3.9 3.2 - 5.0 g/dL BILIRUBIN TOTAL 0.7 0.1 - 1.5 mg/dL Total protein 7.4 6.0 - 7.8 g/dL AST 28 10 - 42 U/L ALT 26 6 - 45 U/L ALK PHOS 96 40 - 110 U/L GLOBULIN 3.5 2.1 - 3.8 g/dL Albumin/Globulin ratio 1.1 0.8 - 2.0 BUN/CREA 17.1 Microalbumin/Creatinine Ratio, Urine Result Value Ref Range Microalbumin, Urine, Random 1.4 <1.8 mg/dL Creatinine, Urine, Random 258 mg/dL Microalbumin/Creatinin ratio 5 <30 mg/g Lipid Panel Result Value Ref Range Triglycerides 93 35 - 160 mg/dL Cholesterol 177 150 - 200 mg/dL HDL 54 28 - 83 mg/dL Chol/HDL Ratio 3.3 LDL, Calculated 104 <=130 mg/dL Hemoglobin A1C Result Value Ref Range Hemoglobin A1c 6.1 (H) 4.3 - 6.0 % Estimated Average Glucose 128 mg/dL CBC with Differential Result Value Ref Range WBC 10.1 4.0 - 11.0 K/uL RBC 4.95 3.70 - 5.20 M/uL Hgb 15.8 11.5 - 16.0 g/dL Hct 47.9 (H) 34.0 - 47.0 % MCV 96.9 83.0 - 101.0 fL MCH 32.0 28.0 - 35.0 pg MCHC 33.0 32.0 - 36.0 g/dL RDW-CV 13.1 <15.0 % Platelet Count 311 140 - 440 K/uL MPV 10.0 fL % Neutrophils 55.6 45.0 - 82.0 % % Lymphocytes 31.0 20.0 - 45.0 % % Monocytes 9.6 4.0 - 12.0 % % Eosinophils 2.9 0.0 - 5.0 % % Basophils 0.9 0.0 - 1.0 % Absolute Neutrophils 5.60 1.80 - 8.50 K/uL Absolute Lymphocytes 3.10 0.60 - 3.20 K/uL Absolute Monocytes 1.00 0.00 - 1.00 K/uL Absolute Eosinophils 0.30 0.00 - 0.40 K/uL Absolute Basophils 0.10 0.00 - 0.10 K/uL Assessment: 1. Welcome to Medicare preventive visit 2. Routine history and physical examination of adult 3. OAB (overactive bladder) oxybutynin (DITROPAN-XL) 10 MG 24 hr tablet 4. POLST (Physician Orders for Life-Sustaining Treatment) Plans: 1. Welcome to Medicare preventive visit 2. Routine history and physical examination of adult Healthy habits discussed , including regular breast exams, proper calcium intake, exercise. Reviewed need for age appropriate screening examinations such as mammography, colonoscopy a nd dexa scan. Ordered if appropriate. Follow-up one year for next exam. 3. OAB (overactive bladder) Will increase her dose to 10 mg. Notify if not working Medication risks and benefits were reviewed in detail today with the patient who expresses understanding. Pt will call or return with problems or side effects. - oxybutynin (DITROPAN-XL) 10 MG 24 hr tablet; Take 1 tablet by mouth Daily. Dispense: 90 tablet; Refill: 1 4. POLST (Physician Orders for Life-Sustaining Treatment) All reviewed with patient. Patient sent with a copy for home. Follow-up: Return in about 6 months (around 02/26/2018) for Hypertension, Lipids, Pre-Diabete s.. Care instructions and warning signs were discussed. Medications per orders. Side effects discussed. Labs and investigations per orders. I Sandra Patterson Assistant am acting as a scribe on behalf of, and in the pres ence of JUSTYN Rodriges. Electronically signed by: Sandra Patterson 08/29/17 11:08 I, JUSTYN Babcock personally performed the services described in this documentati on, as scribed by RHODA Wu in my presence, and are both accurate and complete. Electronically Signed by: JUSTYN Babcock 09/02/17 13:39 documented in th is encounter Plan of [...] [place] | | | | | | [id number] | | | | | | | | +--------+---------+ + + + documented as of this encounter Visit Diagnoses + + | Diagnosis | + + | Welcome to Medicare preventive visit - Primary | + + | Routine history and physical examination of adult Routine general medical examination | | at a health care facility | + + | OAB (overactive bladder) Hypertonicity of bladder | + + | POLST (Physician Orders for Life-Sustaining Treatment) Reserved for inherently not | | codable concepts WITHOUT codable children | + + documented in this encounter
--- OUTSIDE RECORDS SUMMARY | ~2019-10-23 | XMS | Encounter Summary ---
Demographics + + + | Address | [address] | | | [place] [address] | + + + | Home Phone | | + + + | Preferred Language | Unknown | + + + | Marital Status | Single | + + + | Congregation Affiliation | Unknown | + + + | Race | White | + + + | Ethnic Group | Not or | + + + Author + + + | Author | [facility] | + + + | Organization | [facility] | + + + | Address | Unknown | + + + | Phone | Unavailable | + + + Support + + + + + | Name | Relationship | Address | Phone | + + + + + | Aleks Noguera | BRYANT | [address] | | | | | [place] | | | | | [address] | | + + + + + Care Team Providers + +------+ + | Care Online Services Manager Name | Role | Phone | + +------+ + PCP | Unavailable | + +------+ + Encounter Details +--------+ + + + + | Date | Type | Department | Care Team | Description | +--------+ + + + + | 10/16/ | Results | [facility] | Thad Tan, | | | 2010 | Only | Department | MD ANDREA MENDEZ | | | | | | CLINIC DERMATOLOGY | | | | | | [address] | | | | | | [place] | | | | | | [address] | | | | | | | [...] as of this encounter Plan of Treatment Not on filedocumented as of this encounter Procedures + +--------+ + + + | Procedure Name | Priori | Date/Time | Associated Diagnosis | Comments | | | ty | | | | + +--------+ + + + | DERMATOPATHOLOGY(WET | Routin | 10/16/2011 | | Results for this | | [facility]) | e | | | procedure are in the | | | | | | results section. | + +--------+ + + + documented in this encounter Results DERMATOPATHOLOGY(WET [place]) (10/16/2011) + + + + + + | Component | Value | Ref Range | Performed | Pathologist | | | | | At | Signature | + + + + + + | DERMATOPATH | SOURCE OF SPECIMEN:A Rt. | | [facility] | | | OLOGY(WET | breast, 6 mm biopsy | | DERMATOPATH | | | MNT) | CLINICAL | | OLOGY | | | | DESCRIPTION:2-3 mo. hx. | | | | | | small firm papule in | | | | | | skin of rt. areola; ? | | | | | | DF, small EIC. | | | | | | GROSS DESCRIPTION:Rt. | | | | | | breast. The specimen | | | | | | is received in formalin, | | | | | | labeled rt. breast | | | | | | withthe patient's name, | | | | | | and consists of a pale | | | | | | trevizo punch biopsy | | | | | | measuring 0.5 x1.0 cm | | | | | | that is bisected and | | | | | | submitted entirely in | | | | | | one cassette. | | | | | | Gross performed at: | | | | | | [facility], | | | | | | [address], | | | | | | [place] | | | | | | [address]. | | | | | | MICROSCOPIC | | | | | | DESCRIPTION:There is a | | | | | | small, relatively well | | | | | | circumscribed neoplasm | | | | | | involving the | | | | | | midreticular dermis | | | | | | where there are multiple | | | | | | fascicles of cells with | | | | | | spindlednuclei and | | | | | | eosinophilic cytoplasm | | | | | | interweaving | | | | | | haphazardly. The | | | | | | spindlednuclei are | | | | | | uniform and some have | | | | | | blunt ends. | | | | | | DIAGNOSIS:LEIOMYOMA. | | | | | | The leiomyoma extends | | | | | | to the surgical | | | | | | margins. | | | | | | CRW:emr10/19/11 My | | | | | | electronic signature | | | | | | indicates that I have | | | | | | personally reviewed | | | | | | alldiagnostic slides, | | | | | | the gross and/or | | | | | | microscopic portion of | | | | | | thisreport and | | | | | | formulated the final | | | | | | diagnosis. | | | | | | Rendering Diagnostician: | | | | | | Art Stock Jr., | | | | | | | | | | | | Estephania | | | | | | isabela Grullon 10/19/2011 | | | | | | 5:22PM | | | | + + + + + + + + | Specimen | + + | | + + + + + + + | Performing | Address | City/State/Zipcode | Phone Number | | Organization | | | | + + + + + | [facility] | [address], [address] | [place] [address] | | | DERMATOPATHOLOGY | [address] | | | + + + + + documented in this encounter Visit Diagnoses Not on filedocumented in this encounter"
--- OUTSIDE RECORDS SUMMARY | ~2019-10-23 | XMS | Encounter Summary ---
Demographics + + + | Address | [address] | | | [place] [address] | + + + | Home Phone | | + + + | Preferred Language | Unknown | + + + | Marital Status | Single | + + + | Cheondoism Affiliation | 1077 | + + + | Race | Unknown | + + + | Ethnic Group | Unknown | + + + Author + + + | Author | [facility] | | | and Rainerana | + + + | Organization | [facility] | | | and [...] [place], [place] | | | | | [address] | | + + + + + | Jelena Hill | ECON | [place], [place] | | | | | [address] | | + + + + + Care Team Providers + +------+ + | Care Senior Courtroom Clerk Name | Role | Phone | + +------+ + | Ivy Sun | PCP | | + +------+ + Reason for Visit + + + | Reason | Comments | + + + | Medication Prior | Nortriptyline | | Authorization | | + + + Encounter Details +--------+ + + + + | Date | Type | Department | Care Team | Description | +--------+ + + + + | 02/05/ | Telephone | [facility] | Ivy Sun | Medication Prior | | 2019 | | MEDICINE [place] | Rishabh, BEHAVIOR MANAGEMENT SPECIALIST [address] | Authorization | | | | [address] | [place]VE [place], [place] | (Nortriptyline ) | | | | [place], [place] | [address] | | | | | [address] | | | | | | [phone] | | | +--------+ + + + [...] [place] | | | | | | [address] | | | | | | | | +--------+---------+ + + + documented as of this encounter Visit Diagnoses + + | Diagnosis | + + | Chronic insomnia - Primary Insomnia, unspecified | + + documented in this encounter"
--- OUTSIDE RECORDS SUMMARY | ~2019-10-23 | XMS | Encounter Summary ---
Demographics + + + | Address | [address] | | | [place] [address] | + + + | Home Phone | | + + + | Preferred Language | Unknown | + + + | Marital Status | Single | + + + | Roman Catholic Affiliation | 1077 | + + + | Race | Unknown | + + + | Ethnic Group | Unknown | + + + Author + + + | Author | [facility] | | | and Rainerana | + + + | Organization | [facility] | | | and Rainerana [...] [place], [place] | | | | | [address] | | + + + + + | Jelena Hill | ECON | [place] | | | | | [address] | | + + + + + Care Team Providers + +------+ + | Care Garage Laborer Name | Role | Phone | + +------+ + | Ivy Sun | PCP | | + +------+ + Reason for Visit Diagnostic/Screening (Routine) +--------+--------+ + + + + | Status | Reason | Specialty | Diagnoses / | Referred By | Referred To | | | | | Procedures | Contact | Contact | +--------+--------+ + + + + | Closed | | Radiology | Diagnoses | Sun, | [facility] | | | | | OSTEOPENIA | Ivy L, | Mammography | | | | | Procedures | IMPORTER EXPORTER [address] | [address] | | | | | DEXA BONE | [address] | [place], | | | | | DENSITY | [place], | [place] | | | | | STUDY WO | [place] [address] | [address] | | | | | VERT FX | Phone: | Phone: | | | | | ASSESSMENT | [phone] | [phone] | | | | | | Fax: | Fax: | | | | | | [phone] | [phone] | +--------+--------+ + + + + Encounter Details +--------+ + + + + | Date | Type | Department | Care Team | Description | +--------+ + + + + | 09/06/ | Hospital | [facility] | Ivy Sun | Osteopenia; History | | 2015 | Encounter | MED CTR MAMMOGRAPHY | L, IMPORTER EXPORTER [address] | of compression | | | | [address] | [address]VE [place], [place] | fracture of spine | | | | [place], [place] | [address] | | | | | [address] | | | | | | [phone] | | | +--------+ + + + [...] | | | | | | | ([facility]) | | | | | | + [...] | + +--------+ + + + | DEXA BONE DENSITY | Routin | 09/06/2015 | Osteopenia | Results for this | | STUDY OLIVIA ROSSI | e | 11:15 AM | History of | procedure are in the | | ASSESSMENT | | PST | compression fracture | results section. | | | | | of spine | | + +--------+ + + + documented in this encounter Results DEXA Bone Density Study OLIVIA Markhamt FLO Thelma (09/06/2015 11:15 AM PST) + + | Specimen | + + | | + + + + + | Narrative | Performed At | + + + | DEXA BONE DENSITY STUDY WO NEERAJT FLO ASSESSMENT 09/06/2015 11:15 AM | [facility] | | HISTORY: osteopenia and Hx of compression fracture of the spine. | [facility] | | COMPARISON: May 12, 2013. PROTOCOL: Bone mineral density was | MEDICAL CENTER | | calculated with dual absorption [...] + | Yohannes, Rad Results In - 09/06/2015 4:41 PM PST DEXA BONE DENSITY STUDY WO VERT FX | | ASSESSMENT 09/06/2015 11:15 AMHISTORY: [...] + | [address] | [address] | [place] | [phone] | | [facility] | | [address] | | | - IMAGING | | | | + + + + + documented in this encounter Visit Diagnoses + + | Diagnosis | + + | Osteopenia Disorder of bone and cartilage, unspecified | + + | History of compression fracture of spine Personal history of traumatic fracture | + + documented in this encounter"
--- OUTSIDE RECORDS SUMMARY | ~2019-10-23 | XMS | Encounter Summary ---
Demographics + + + | Address | [address] | | | [place] [address] | + + + | Home Phone | | + + + | Preferred Language | Unknown | + + + | Marital Status | Single | + + + | Buddhist Affiliation | 1077 | + + + | Race | Unknown | + + + | Ethnic Group | Unknown | + + + Author + + + | Author | [facility] | | | and Rainerana | + + + | Organization | [facility] | | | and [...] [place], [place] | | | | | [address] | | + + + + + | Jelena Hill | ECON | [place] | | | | | [address] | | + + + + + Care Team Providers + +------+ + | Care Research Computing Specialist Name | Role | Phone | + +------+ + | Ivy Sun | PCP | | + +------+ + Reason for Visit +---------+ + | Reason | Comments | +---------+ + | Results | | +---------+ + Encounter Details +--------+ + + + + | Date | Type | Department | Care Team | Description | +--------+ + + + + | 03/12/ | Telephone | [facility] | Monika Guerrero, | Results | | 2018 | | MEDICINE [place] | MEAT SLICER [address] | | | | | [address] | [place] | | | | | [place] | [address] | | | | | [address] | | | | | | [phone] | | | +--------+ + + + [...]
--- OUTSIDE RECORDS SUMMARY | ~2019-10-23 | XMS | Encounter Summary ---
Demographics + + + | Address | [address] | | | [place] [address] | + + + | Home Phone [...] | Author | [facility] | | | and Rainerana | + + + | Organization | [facility] | | [...] [address] | | | | | [place], [place] | | | | | [address] | | + + + + + | Jelena Hill | ECON | [place], [place] | | | | | [address] | | + + + + + Care Team Providers + +------+ + | Care Scarfing Machine Operator Name | Role | Phone | + +------+ + | Ivy Sun | PCP | | + +------+ + Reason for Visit + + + | Reason | Comments | + + + | CPAP Follow Up | Sleep Resource | + + + Encounter Details +--------+ + + + + | Date | Type | Department | Care Team | Description | +--------+ + + + + | 04/10/ | Clinical | [facility] | Reymundo Guillory | KAMERON (obstructive | | 2018 | Support | SLEEP DISORDER [address] | MD Ivy [address] | sleep apnea) | | | | [address] [place] | [address] [place] | (Primary Dx) | | | | [place] [address] | [place] [address] | | | | | [phone] | [phone] | | | | | | | [...] + + + | Blood Pressure | 132/64 | 04/10/2018 9:06 AM | | | | | PDT | | + + + + + | Pulse | 120 | 04/10/2018 9:06 AM | | | | | PDT | | + + + + + | Temperature | - | - | | + + + + + | Respiratory Rate | 18 | 04/10/2018 9:06 AM | | | | | PDT | | + + + + + | Oxygen Saturation | - | - | | + + + + + | Inhaled Oxygen | - | - | | | Concentration | | | | + + + + + | Weight | 131.2 kg (289 lb 3.9 | 04/10/2018 9:06 AM | | | | oz) | PDT | | + + + + + | Height | 170.2 cm (5' 7") | 04/10/2018 9:06 AM | | | | | PDT | | + + + + + | Body Mass Index | 45.3 | 04/10/2018 9:06 AM | | | | | PDT | | + + + + + documented in this encounter Progress Notes Otf Beltre, DeeOrder Mapper Tech - 04/10/2018 9:00 AM PDTFormatting of this note migh t be different from the original. Clinical Sleep Support Visit Patient:Lucie Miller Date of :1950 Encounter Date: 04/10/2018 Reason for visit: Chief Complaint Patient presents with CPAP Follow Up Sleep Resource Patient was last seen in our clinic on 03/06/[address] Guillory, referred to us by Dr. Sun . PAP was ordered on 03/06/2018 from [facility]. Patient has been using PAP for 8 out of 8 nights, wearing the ResMed S-10 auto PAP with settings of 13 to 20, wearing the Jerri vie w mask. ~ Vital signs were: BP 132/64 | Pulse 120 | Resp 18 | Ht 1.702 m (5' 7") | Wt 131.2 kg (289 lb 3.9 oz) | BMI 45.30 kg/m ~ Patient is doing poor with toleration/compliance. She had her mask on wrong, the headgear was on backwards and upside down - which she told me she did not adjust. One of the straps was under her chin. I got it all figured out for her and she said "what a difference" Mask f it a lot better and we went through the entire application again. Her humidifier was low at 71 and she said she did not adjust this either. I did adjust it up to 76 for her complaint o f dryness. ~ Overall leak is 46.8 ~ Compliance >4 hours =62% with AHI of 4.8 ~ Average daily usage of 5:46 Original date of study was on 12/25/2017 that showed an AHI of 55.2 with a O2 Markel of 78% w ith 31.2 minutes < 88%. Sleep hygiene reviewed with the patient included study results, all PAP unit and mask instr uctions for use including humidity and cleaning and a recommendation of using the mask at al l times during sleep Plan for continuous PAP use: 1. Wear PAP any time you are sleeping 2. Continue with PAP indefinitely 3. Follow up with Hiren ALEJANDRO in 2 weeks with equipment Otf Beltre RPSGT CSE doc anayeli in this encounter Plan of Treatment +--------+---------+ + + + | Date | Type | Specialty | Care Team | Description | +--------+---------+ + + + | 11/23/ | Office | Family Medicine | Ivy Sun | | | 2020 | Visit | | Rishabh, JUSTYN [address] | | | | | | [place] | | | | | | [address] | | | | | | | | +--------+---------+ + + + documented as of this encounter Visit Diagnoses + + | Diagnosis | + + | KAMERON (obstructive sleep apnea) - Primary Obstructive sleep apnea (adult) (pediatric) | + + documented in this encounter
--- OUTSIDE RECORDS SUMMARY | ~2019-10-23 | XMS | Encounter Summary ---
Demographics + + + | Address | [address] | | | [place] [address] | + + + | Home Phone [...] + + + | Author | [facility] | | | and Rainerana | + + + | Organization | [facility] | [...] [place], [place] | | | | | [address] | | + + + + + | Jelena Hill | ECON | [place], [place] | | | | | [address] | | + + + + + Care Team Providers + +------+ + | Care Mortuary Beautician Name | Role | Phone | + [...] [place] | | | | | | [address] | | | | | | [phone] | | | +--------+ + + + [...] [place] | | | | | | [address] | | | | | | | | +--------+---------+ + + + documented as of this encounter Visit Diagnoses Not on filedocumented in this encounter"
--- OUTSIDE RECORDS SUMMARY | ~2019-10-23 | XMS | Encounter Summary ---
Demographics + + + | Address | [address] | | | [place] [address] | + + + | Home Phone [...] + | Author | [facility] | | | and Rainerana | + + + | Organization | [facility] | | | [...] [place], [place] | | | | | [address] | | + + + + + | Jelena Hill | ECON | [place] | | | | | [address] | | + + + + + Care Team Providers + +------+ + | Care Project Executive Name | Role | Phone | + +------+ + | Ivy Sun | PCP | | + +------+ + Encounter Details +--------+ + + + + | Date | Type | Department | Care Team | Description | +--------+ + + + + | 11/26/ | Hospital | [facility] | Ivy Sun | Function kidney | | 2017 | Encounter | MED CTR LABORATORY | L, INSTALLATION SPECIALIST [address] | decreased; Essential | | | | [address] [place] | [address]VE [place], [place] | hypertension | | | | [place], [place] | [address] | | | | | [address] | | | | | | [phone] | | | +--------+ + + + [...] | 1 | 11/26/19 | | | 40 MG | MOUTH DAILY | tablet | | 17 | 8 | | tabletIndications: | | | | | | | Anxiety | | | | | | + [...] + + + +---------+ + + | tolterodine | Take 1 capsule by | 90 | 1 | 11/26/19 | | | (DETROL LA) 4 MG 24 | mouth Daily. | capsule | | 17 | 7 | | hr | | | | | | [...] [place] | | | | | | [id number] | | | | | | | | +--------+---------+ + + + documented as of this encounter Procedures + +--------+ + + + | Procedure Name | Priori | Date/Time | Associated Diagnosis | Comments | | | ty | | | | + +--------+ + + + | RENAL FUNCTION PANEL | Routin | 11/26/2016 | Function kidney | Results for this | | | e | 12:49 PM | decreased Essential | procedure are in the | | | | PST | hypertension | results section. | + +--------+ + + + documented in this encounter Results Renal Function Panel (11/26/2016 12:49 PM PST) + +---------+ + + + | Component | Value | Ref Range | Performed | Pathologist | | | | | At | Signature | + +---------+ + + + | Na | 139 | 136 - 149 | [facility] | | | | | mmol/L | [facility] | | | | | | [facility] | | | | | | [facility] - | | | | | | LABORATORY | | + +---------+ + + + | K | 3.8 | 3.5 - 5.1 | [facility] | | | | | mmol/L | [facility] | | | | | | [facility] | | | | | | C[facility] - | | | | | | LABORATORY | | + +---------+ + + + | Cl | 105 | 98 - 109 mmol/L | [facility] | | | | | | [facility] | | | | | | [facility]ICAL | | | | | | CENTER - | | | | | | LABORATORY | | + +---------+ + + + | CO2 | 25 | 24 - 31 mmol/L | [facility] | | | | | | [facility] | | | | | | [facility]ICAL | | | | | | CENTER - | | | | | | LABORATORY | | + +---------+ + + + | Anion Gap | 9 | 3 - 16 mmol/L | [facility] | | | | | | [facility] | | | | | | [facility]ICAL | | | | | | CENTER - | | | | | | LABORATORY | | + +---------+ + + + | Glucose | 116 (H) | 70 - 109 mg/dL | [facility] | | | | | | [facility] | | | | | | MEDICAL | | | | | | CENTER - | | | | | | LABORATORY | | + +---------+ + + + | BUN | 17 | 7 - 18 mg/dL | [facility] | | | | | | [facility] | | | | | | MEDICAL | | | | | | CENTER - | | | | | | LABORATORY | | + +---------+ + + + | Creatinine | 0.82 | 0.60 - 1.30 | [facility] | | | | | mg/dL | [facility] | | | | | | MEDICAL | | | | | | CENTER - | | | | | | LABORATORY | | + +---------+ + + + | eGFR if not | >60 | >=60 | [facility] | | | | | mL/min/1.73m2 | [facility] | | | [facility] | | | MEDICAL | | | | | | CENTER - | | | | | | LABORATORY | | + +---------+ + + + | Calcium | 9.2 | 8.3 - 10.5 | [facility] | | | | | mg/dL | [facility] | | | | | | MEDICAL | | | | | | CENTER - | | | | | | LABORATORY | | + +---------+ + + + | Albumin | 3.6 | 3.2 - 5.0 g/dL | [facility] | | | | | | [facility] | | | | | | MEDICAL | | | | | | CENTER - | | | | | | LABORATORY | | + +---------+ + + + | Phosphorus | 3.3 | 2.5 - 4.6 mg/dL | [facility] | | | | | | [facility] | | | | | | MEDICAL | | | | | | CENTER - | | | | | | LABORATORY | | + +---------+ + + + | BUN/Creatin | 20.7 | | [facility] | | | ine Ratio | | | [facility] | | [...] + + | [address] | [address] | [place] | [phone] | | [facility] | | [address] | | | - LABORATORY | | | | + + + + + documented in this encounter Visit Diagnoses + + | Diagnosis | + + | Function kidney decreased Unspecified disorder of kidney and ureter | + + | Essential hypertension Unspecified essential hypertension | + + documented in this encounter"
--- OUTSIDE RECORDS SUMMARY | ~2019-10-23 | XMS | Encounter Summary ---
Demographics + + + | Address | [address] | | | [place] [address] | + + + | Home Phone [...] | Author | [facility] | | | and Rainerana | + + + | Organization | [facility] | | | and Rainerana | + + + | Address | Unknown | + + + | Phone | Unavailable | + + + Support + + + + + | Name | Relationship | Address | Phone | + + + + + | Aleks Nogeura | BRYANT | [address] | | | | | [place], [place] | | | | | [address] | | + + + + + | Jelena Hill | ECON | [place] | | | | | [address] | | + + + + + Care Team Providers + +------+ + | Care Supervisor Body Assembly Name | Role | Phone | + [...] Compression | Ivy L, | [address] | | | | | fracture of | [address] | [place], | | | | | thoracic | [address] | [place] | | | | | spine, | [place], | [address] | | | | | non-traumati | [place] [address] | Phone: | | | | | c, initial | Phone: | [phone] | | | | | encounter | [phone] | Fax: | | | | | ([facility]) | Fax: | [phone] | | | | | Procedures | [phone] | | | | | | MRI Thoracic | | | | | | | Spine wo | | | | | | | Contrast | | | +--------+--------+ + + + + Reason for Visit +---------+ + | Reason | Comments | +---------+ + | Results | | +---------+ + Encounter Details +--------+ + + + + | Date | Type | Department | Care Team | Description | +--------+ + + + + | 08/17/ | Telephone | [facility] | Ivy Sun | Results | | 2015 | | MEDICINE [place] | L, MAGNETIZER [address] | | | | | [address] | [place], [place] | | | | | [place], [place] | [address] | | | | | [address] | | | | | | [phone] | | | +--------+ + + + [...] | | | | | [place] | | | | | | [address] | | | | | | | | +--------+---------+ + + + documented as of this encounter Results MRI Thoracic Spine wo [...] None. PROTOCOL: Sagittal T2, sagittal T1, | [facility] | | sagittal STIR, axial T2. FINDINGS: [...] [address] | [place] | [phone] | | [facility] | | [address] | | | - IMAGING | | | | + + + + + documented in this encounter Visit Diagnoses + + | Diagnosis | + + | Compression fracture of thoracic spine, non-traumatic, initial encounter (HCC) - | | Primary | + + documented in this encounter"
--- OUTSIDE RECORDS SUMMARY | ~2019-10-23 | XMS | Encounter Summary ---
Demographics + + + | Address | [address] | | | [place] [address] | + + + | Home Phone [...] + + + | Author | [facility] | | | and Rainerana | + + + | Organization | [facility] | | | and [...] [place], [place] | | | | | [address] | | + + + + + | Jelena Hill | ECON | [place] | | | | | [address] | | + + + + + Care Team Providers + +------+ + | Care Mobile Security Architect Name | Role | Phone | + [...] Description | +--------+--------+ + + + | 12/18/ | Refill | [facility] | Ivy Sun | Medication Refill | | 2012 | | MEDICINE [place] | Rishabh, JUSTYN [address] | | | | | [address] | [address] [place], [place] | | | | | [place], [place] | [address] | | | | | [address] | | | | | | [phone] | | | +--------+--------+ + + + [...] [place] | | | | | | [id number] | | | | | | | | +--------+---------+ + + + documented as of this encounter Visit Diagnoses + + | Diagnosis | + + | Hyperlipidemia - Primary Other and unspecified hyperlipidemia | + + documented in this encounter"
--- OUTSIDE RECORDS SUMMARY | ~2019-10-23 | XMS | Encounter Summary ---
Demographics + + + | Address | [address] | | | [place] [address] | + + + | Home Phone | | + + + | Preferred Language | Unknown | + + + | Marital Status | Single | + + + | Restoration Affiliation | [id number] | + + + | Race | Unknown | + + + | Ethnic Group | Unknown | + + + Author + + + | Author | [facility] | | | and Rainerana | + + + | Organization | [facility] | | | and Rainerana [...] [place], [place] | | | | | [address] | | + + + + + | Jelena Hill | ECON | [place] | | | | | [address] | | + + + + + Care Team Providers + +------+ + | Care Locomotive Supervisor Name | Role | Phone | + [...] + | 08/17/ | Refill | [facility] | Ivy Sun | Medication Refill | | 2015 | | MEDICINE [place] | Rishabh, JUSTYN [address] | | | | | [address] | [place] [place] | | | | | [place] | [address] | | | | | [address] | | | | | | [phone] | | | +--------+--------+ + + + [...] [place] | | | | | | [id number] | | | | | | | | +--------+---------+ + + + documented as of this encounter Visit Diagnoses Not on filedocumented in this encounter"
--- OUTSIDE RECORDS SUMMARY | ~2019-10-23 | XMS | Encounter Summary ---
Demographics + + + | Address | [address] | | | [place] [address] | + + + | Home Phone [...] + + + | Author | [facility] | | | and Rainerana | + + + | Organization | [facility] | | | and Rainerana [...] [place], [place] | | | | | [address] | | + + + + + | Jelena Hill | ECON | [place] | | | | | [address] | | + + + + + Care Team Providers + +------+ + | Care Gantry Crane Operator Name | Role | Phone | [...] Description | +--------+--------+ + + + | 03/22/ | Refill | [facility] | Ivy Sun | Medication Refill | | 2015 | | MEDICINE [place] | Rishabh, JUSTYN [address] | | | | | [address] | [place] | | | | | [place] | [address] | | | | | [address] | | | | | | [phone] | | | +--------+--------+ + + + [...] [place] | | | | | | [address] | | | | | | | | +--------+---------+ + + + documented as of this encounter Visit Diagnoses Not on filedocumented in this encounter"
--- OUTSIDE RECORDS SUMMARY | ~2019-10-23 | XMS | Encounter Summary ---
Demographics + + + | Address | [address] | | | [place] [address] | + + + | Home Phone [...] Author | [facility] | | | and Rainerana | + + + | Organization | [facility] [...] [place], [place] | | | | | [address] | | + + + + + | Jelena Hill | ECON | [place] | | | | | [address] | | + + + + + Care Team Providers + +------+ + | Care Round Up Ring Hand Name | Role | Phone | [...] Description | +--------+--------+ + + + | 08/26/ | Refill | [facility] | Hiren Mai PA | Medication Refill | | 2011 | | SLEEP DISORDER [address] | [address] | | | | | [address] [place] | [address] | | | | | [place] [address] | [id number] | | | | | [phone] | | | +--------+--------+ + + + [...] [place] | | | | | | [address] | | | | | | | | +--------+---------+ + + + documented as of this encounter Visit Diagnoses + + | Diagnosis | + + | Obstructive sleep apnea (adult) (pediatric) - Primary | + + documented in this encounter"
--- OUTSIDE RECORDS SUMMARY | ~2019-10-23 | XMS | Encounter Summary ---
Demographics + + + | Address | [address] | | | [place] [address] | + + + | Home Phone [...] + + | Author | [facility] | | | and Rainerana | + + + | Organization | [facility] [...] [place], [place] | | | | | [address] | | + + + + + | Jelena Hill | ECON | [place] | | | | | [address] | | + + + + + Care Team Providers + +------+ + | Care Food Service Utility Worker Name | Role | Phone | + +------+ + | Ivy Sun | PCP | | + +------+ + Reason for Visit +---------+ + | Reason | Comments | +---------+ + | Results | urine | +---------+ + Encounter Details +--------+ + + + + | Date | Type | Department | Care Team | Description | +--------+ + + + + | 08/22/ | Telephone | [facility] [place] [facility] | Ivy Sun | Results (urine) | | 2014 | | MEDICINE [place] | JUSTYN Keating [address] | | | | | [address] | [place] [place] | | | | | [place] | [address] | | | | | [address] | | | | | | [phone] | | | +--------+ + + + [...] [place] | | | | | | [address] | | | | | | | | +--------+---------+ + + + documented as of this encounter Visit Diagnoses + + | Diagnosis | + + | UTI (lower urinary tract infection) - Primary Urinary tract infection, site not | | specified | + + | Proteinuria | + + documented in this encounter"
--- OUTSIDE RECORDS SUMMARY | ~2019-10-23 | XMS | Encounter Summary ---
Demographics + + + | Address | [address] | | | [place] [address] | + + + | Home Phone | | + + + | Preferred Language | Unknown | + + + | Marital Status | Single | + + + | Protestant Affiliation | 1077 | + + + | Race | Unknown | + + + | Ethnic Group | Unknown | + + + Author + + + | Author | [facility] | | | and Rainerana | + + + | Organization | [facility] | [...] [place], [place] | | | | | [address] | | + + + + + | Jelena Hill | ECON | [place] | | | | | [address] | | + + + + + Care Team Providers + +------+ + | Care Pipe Buffer Name | Role | Phone | + +------+ + | Ivy Sun | PCP | | + +------+ + Reason for Visit + + + | Reason | Comments | + + + | Hypertension | 3 months follow up | + + + | Pre-Diabetes | 3 months follow up | + + + Encounter Details +--------+---------+ + + + | Date | Type | Department | Care Team | Description | +--------+---------+ + + + | 11/10/ | Office | [facility] | Ivy Sun | HYPERTENSION, | | 2014 | Visit | [facility] | JUSTYN Keating [address] | CONTROLLED (Primary | | | | [address] | [place] [place] | Dx); Abnormal | | | | [place] | [address] | finding on EKG; | | | | [address] | | Hyperlipidemia; | | | | [phone] | | Pre-diabetes; | | | | | | Restless legs; Need | | | | | | for prophylactic | | | | | | vaccination and | | | | | | inoculation against | | | | | | influenza; Need for | | | | | | shingles vaccine; | | | | | | Aortic root | | | | | | enlargement (HCC); | | | | | | PERS HX TOBACCO USE | | | | | | PRESENTING HAZARDS | | | | | | HEALTH | +--------+---------+ + + + Social History [...] + | Blood Pressure | 130/80 | 11/10/2014 2:24 PM | | | | | PST | | + + + + + | Pulse | 98 | 11/10/2014 2:24 PM | | | | | PST | | + + + + + | Temperature | 37.1 C (98.7 F) | 11/10/2014 2:24 PM | | | | | PST | | + + + + + | Respiratory Rate | 16 | 11/10/2014 2:24 PM | | | | | PST | | + + + + + | Oxygen Saturation | 97% | 11/10/2014 2:24 PM | | | | | PST | | + + + + + | Inhaled Oxygen | - | - | | | Concentration | | | | + + + + + | Weight | 124.3 kg (274 lb) | 11/10/2014 2:24 PM | | | | | PST | | + + + + + | Height | 170.2 cm (5' 7") | 11/10/2014 2:24 PM | | | | | PST | | + + + + + | Body Mass Index | 42.91 | 11/10/2014 2:24 PM | | | | | PST | | + + + + + documented in this encounter Progress Notes Candace Suarez CMA - 11/10/2014 4:01 PM PSTAfter obtaining informed consent, the immunizat ion is given by Candace DUONG, patient tolerated vaccine well no adverse reactions. Ivy Diaz [place] NP - 11/10/2014 2:59 PM PST Subjective: Patient ID: Lucie Miller is a 64 y.o. female. HPI Patient's medications, allergies, past medical, surgical, social and family histories were reviewed and updated as appropriate. Hypertension: reduced b/p med in June. Had reduced GFR and feeling tired. Feeling bett er. Control and Compliance Low Sodium Diet: yes Medication compliance: good Home Blood Pressures: not checking. Today B/P BP: 130/80 mmHg Pt denies: No headache, visual symptoms, neurologic problems, syncope No chest pain, palpitations, peripheral edema No side effects from any antihypertensive medications Diabetes: taking metformin once a day at bedtime. Tolerates well. FBS: 70-80 in am. PP: not checking. Lab Results Component Value Date HBA1C 5.5 11/10/2014 HBA1C 6.2* 10/14/2013 HBA1C 6.2* 10/14/2013 DGB9JGR 6.0 07/06/2014 MIO0QIY 5.8 04/06/2014 LDL 83 05/12/2013 MALBCRE 31.3 04/06/2014 MALB 9.3 04/06/2014 Thyroid level labs reviewed and she is Euthyroid. Started having vaginal bleeding 3 days ago and will be notifying Dr. Bentley. Flu vaccination: needs updated today Would like to get shingles vaccination. Needs rx sent to pharmacy. 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 Confirmation reading sent t o Dr. Shetty. Reading: Sinus rhythm. Right bundle branch block. Possible lateral infarcti on age-indeterminate. compaired to EKG reading that was done in december and this was not prese nt in December. Is established with Dr. Wolf in cardiology for Aortic root dilitation. Has f/ u with him in December. Denies chest pain or other concerning cardiac symptoms. Needs refill of her requip. Has been taking the whole 2 mg tablets. Working well. HYPERLIPIDEMIA: Diet: Low fat, low carb dietary compliance: Denies side effects of medications No evidence of medication toxicity Denies chest pain, shortness of breath Denies Myalgias, abdominal pain, jaundice, constipation. Needs fasting labs and CMP Review of Systems See HPI Objective: Physical Exam Nursing note and vitals reviewed. Constitutional: She is oriented to person, place, and time. She appears well-developed and well-nourished. No distress. HENT: Head: Normocephalic and atraumatic. Eyes: Conjunctivae normal are normal. Right eye exhibits no discharge. Left eye exhibits no discharge. Neck: Neck supple. No JVD present. Cardiovascular: [...] mood and affect. Her behavior is normal. Assessment: 1. HYPERTENSION, CONTROLLED 2. Abnormal finding on EKG 3. Hyperlipidemia Lipid Panel Hepatic Function Panel 4. Pre-diabetes POCT Hemoglobin A1c 5. Restless legs rOPINIRole (REQUIP) 2 MG tablet 6. Need for prophylactic vaccination and inoculation against influenza Quadrivalent Flu va c greater than or equal to 3YO preservative free IM 7. Need for shingles vaccine zoster vaccine live, PF, (ZOSTAVAX) [id number] UNT/0.65ML injectio n 8. Aortic root enlargement (HCC) 9. PERS HX TOBACCO USE PRESENTING HAZARDS HEALTH varenicline (CHANTIX STARTING MONTH ) 0.5 MG X 11 & 1 MG X 42 tablet Plan: 1. HYPERTENSION, CONTROLLED -. Blood pressure stable and goals discussed -. Continue current medications - Advised low salt diet - Advised regular cardiovascular exercise -. Labs reviewed and discussed with the patient - Follow up as needed if blood pressures are above goal 2. Abnormal finding on EKG Discussed and recommended she f/u with cariology. She would like to call Dr. Wolf's offi ce to see if she should be seen earilier 3. Pre-diabetes A1C improved and now in normal range. No change in care. - POCT Hemoglobin A1c - Reviewed Blood sugars and goals today - Continue with current medications as directed -. Eye exam yearly -. Advised home foot exams -. Continue with diabetic diet and exercise program - Check glucose fasting and 2 hrs after meals -. Return if you experience significant glucose lows or highs -. Labs and A1c reviewed - varenicline (CHANTIX STARTING ) 0.5 MG X 11 & 1 MG X 42 tablet; Take one 0.5mg tablet by mouth once daily for 3 days, then increase to one 0.5mg tablet twice daily for 3 d ays, then increase to one 1mg tablet twice daily. Dispense: 53 tablet; Refill: 0 4. PERS HX TOBACCO USE PRESENTING HAZARDS HEALTH Advised to stop smoking. Discussed use of chantix and needs to stop smoking on day 8. Do n ot smoke while taking chantix as may cause nausea/vomiting. stragegies to reduce smoking wallpaper scraper vings discussed. Medication risks and benefits were reviewed in detail today with the patient who expresses understanding. Pt will call or return with problems or side effects. 5 minutes spent in smoking cessation 5. Restless legs Refilled requip - rOPINIRole (REQUIP) 2 MG tablet; Take 1 tablet by mouth nightly. Dispense: 90 tablet; R efill: 3 6. Need for prophylactic vaccination and inoculation against influenza Immunization counseling discussed by myself and updated today - Quadrivalent Flu vac greater than or equal to 3YO preservative free IM 7. Need for shingles vaccine Immunization counseling discussed by myself and updated today. rx sent to pharmacy - zoster vaccine live, PF, (ZOSTAVAX) [id number] UNT/0.65ML injection; Inject 0.65 mLs under th e skin once for 1 dose. Dispense: 0.65 mL; Refill: 0 8. Aortic root enlargement (HCC) F/u with Dr. Wolf 9. Hyperlipidemia -. Take meds as directed -. Discussed regular cardiovascular exercise and maintaining healthy wt. -. Avoid high fat/cholesterol diet -. Lipid panel and LFT's f/u labs ordered - Lipid Panel; Future - Hepatic Function Panel; Future F/U 3 months recheck above problems, sooner prn documented in this encounter Plan of Treatment [...] | POCT HEMOGLOBIN A1C | Routin | 11/10/2014 | Pre-diabetes | Results for this | | | e | 3:55 PM | | procedure are in the | | | | PST | | results section. | + +--------+ + + + documented in this encounter Results POCT Hemoglobin A1c (11/10/2014 3:55 PM PST) + +-------+ + + + | Component | Value | Ref Range | Performed | Pathologist | | | | | At | Signature | + +-------+ + + + | Hemoglobin | 5.5 | | | | | A1C, POC | | | | | + +-------+ + + + + + | Specimen | + + | | + + documented in this encounter Visit Diagnoses + + | Diagnosis | + + | HYPERTENSION, CONTROLLED - Primary Essential hypertension, benign | + + | Abnormal finding on EKG Nonspecific abnormal electrocardiogram (ECG) (EKG) | + + | Hyperlipidemia Other and unspecified hyperlipidemia | + + | Pre-diabetes Other abnormal glucose | + + | Restless legs Restless legs syndrome (RLS) | + + | Need for prophylactic vaccination and inoculation against influenza | + + | Need for shingles vaccine Need for prophylactic vaccination and inoculation against | | varicella | + + | Aortic root enlargement (HCC) Aortic ectasia, unspecified site | + + | PERS HX TOBACCO USE PRESENTING HAZARDS HEALTH Personal history of tobacco use, | | presenting hazards to health | + + documented in this encounter
--- OUTSIDE RECORDS SUMMARY | ~2019-10-23 | XMS | Encounter Summary ---
Demographics + + + | Address | [address] | | | [place] [address] | + + + | Home Phone [...] Author | [facility] | | | and Rainerana | + + + | Organization | [facility] | | | and [...] [place], [place] | | | | | [address] | | + + + + + | Jelena Hill | ECON | [place] | | | | | [address] | | + + + + + Care Team Providers + +------+ + | Care Adult Basic Education Instructor Name | Role | Phone | + +------+ + | Ivy Sun | PCP | | + +------+ + Encounter Details +--------+ + + + + | Date | Type | Department | Care Team | Description | +--------+ + + + + | 08/18/ | Hospital | [facility] | Reymundo Guillory | | | 2011 - | Encounter | MED CTR OP INFUSION | MD Ivy [address] | | | | | [address] | [facility] | | | 08/19/ | | [place], [place] | [place] [address] | | | 2011 | | [address] | [phone] | | | | | [phone] | | | +--------+ + + + [...] [place] | | | | | | [address] | | | | | | | | +--------+---------+ + + + documented as of this encounter Visit Diagnoses Not on filedocumented in this encounter"
--- OUTSIDE RECORDS SUMMARY | ~2019-10-23 | XMS | Encounter Summary ---
Demographics + + + | Address | [address] | | | [place] [address] | + + + | Home Phone [...] Author | [facility] | | | and Rainerana | + + + | Organization | [facility] | | | [...] [place], [place] | | | | | [address] | | + + + + + | Jelena Hill | ECON | [place] | | | | | [address] | | + + + + + Care Team Providers + +------+ + | Care Milling/Polishing Operator Name | Role | Phone | [...] Description | +--------+---------+ + + + | 03/06/ | Office | [facility] | Reymundo Guillory | KAMERON (obstructive | | 2017 | Visit | SLEEP DISORDER [address] | MD Ivy [address] | sleep apnea) | | | | [address] [place] | [address] [place] | | | | | [place] [address] | [place] [address] | | | | | [phone] | [phone] | | | | | | | [...] + | Blood Pressure | 110/80 | 03/06/2018 11:21 AM | | | | | PDT | | + + + + + | Pulse | 111 | 03/06/2018 11:21 AM | | | | | PDT | | + + + + + | Temperature | - | - | | + + + + + | Respiratory Rate | 18 | 03/06/2018 11:21 AM | | | | | PDT | | + + + + + | Oxygen Saturation | 96% | 03/06/2018 11:21 AM | | | | | PDT | | + + + + + | Inhaled Oxygen | - | - | | | Concentration | | | | + + + + + | Weight | 130.1 kg (286 lb | 03/06/2018 11:21 AM | | | | 13.1 oz) | PDT | | + + + + + | Height | - | - | | + + + + + | Body Mass Index | 47.73 | 03/06/2018 9:17 AM | | | | | PDT | | + + + + + documented in this encounter Progress Notes Reymundo Guillory Jr., MD - 03/06/2018 11:15 AM PDTThe patient comes in for follow-up after undergoing polysomnographically guided positive airway pressure titration. My interpretation of the patient's sleep study, which I have reviewed with the patient, is as follows: Positive Airway Pressure Titration Report on Lucie Miller performed on February 09, 2018. Clinical Information: Lucie Miller is a 67 y.o. female who underwent polysomnographic ally guided PAP on February 09, 2018. The patient was diagnosed with obstructive sleep apnea s everal years ago. She was intolerant of positive airway pressure at that time. Most recent ly diagnostic nocturnal polysomnography has been performed on December 25, 2017. This demon strated a very fragmented sleep and an Apnea Hypopnea Index index of 55.2. This was associa coni with a cleve oxygen saturation of 78% and the patient spent 31.2 minutes with an oxygen saturation of less than 88%. Technical Information: Please see technical [...] breaths does not meet criteria for an lead dental assistant ea or hypopnea. Sleep Architecture: Lights out was recorded at 2340 hundred hours on February 09, 2018 and li ghts on was recorded at 0837 hundred hours on February 10, 2018. The latency to sleep onset was normal at 9 minutes. The patient slept for 481 minutes out of 537.5 minutes of study time resulting an a sleep efficiency that was normal at 89.5 %. The amount of N1 sleep was normal at 2.5 % of the Total Sleep Time; the amount of N2 sleep was increased at 96.7 % of the Tot al Sleep Time; the amount of N3 sleep was low at 0.8 % of the Total Sleep Time; the amount o f REM sleep was low at 0% of the Total Sleep Time. This is very similar to the results seen on her diagnostic nocturnal polysomnogram on December 25, 2017. Sleep was recorded in the following positions: left lateral decubitus 21.9%, right lateral decubitus 0%, supine 78.1%, prone 0%. Sleep was fragmented; the Arousal Index was 29.1. The patient reported this to be worse than a "usual" night's sleep. Sleep was less fragmen coni than it was in her diagnostic study but otherwise sleep architecture showed no significa nt change in response to positive airway pressure Cardiopulmonary Monitoring: The heart rate averaged in the 90s beats per minute. Mild rate variability was noted. The rhythm was sinus tachycardia. In the course of the evening the patient started at CPAP of 5 cm was titrated to 17 cm. It appears however that CPAP of 13 cm and higher is likely to provide satisfactory control of obstructive sleep apnea and significant improvement in oxygen desaturation. Limb Movement Monitoring: There were 0 Periodic Limb Movements (PLMS Index 0) of which 0 we re associated with arousals; the PLMS Arousal Index was normal at 0. Interpretation: This is a satisfactory CPAP titration study. CPAP in the 13-17 cm range appears to be required for control of obstructive sleep apnea an d improvement in oxygen desaturation. The very low amounts of stage in 3 sleep and REM sleep which was seen on the diagnostic vianey dy also are of unexplained etiology it is conceivable this could be at least in part seconda ry to medications (gabapentin, methocarbamol, nortriptyline, paroxetine). Suggestions: 1. The principles of Sleep Hygiene should be reviewed with the patient. 2. Auto-Titrating CPAP 13-20cm is advised. BP 110/80 | Pulse 111 | Resp 18 | Wt 130.1 kg (286 lb 13.1 oz) | SpO2 96% | BMI 47.73 kg/m A: KAMERON: It appears that her obstructive apnea requires substantial CPAP pressures. I am go ing to start a new auto titrating CPAP unit. I've discussed this in detail with her. I am going to start with a minimum pressure of 13 cm and a maximum 20 cm. This may be too high f or her for comfort. If it is we can certainly adjust did not discuss this with her in some detail. P: Resmed AirSense 10 autoset CPAP 13-20cm while sleeping is prescribed. F/u 2 days after getting CPAP with our Clinical Sleep Educator and our [facility] . I will see her again in 6 weeks. Today, 15 minutes was spent face to face with the patient; the majority of time was spent c sherita regarding CPAP therapy of KAMERON. documented in th is encounter Plan of Treatment +--------+---------+ + + + | Date | Type | Specialty | Care Team | Description | +--------+---------+ + + + | 11/23/ | Office | Family Medicine | Ivy uSn | | | 2019 | Visit | | Rishabh, JUSTYN [address] | | | | | | [place] | | | | | | [id number] | | | | | | | | +--------+---------+ + + + documented as of this encounter Visit Diagnoses + + | Diagnosis | + + | KAMERON (obstructive sleep apnea) Obstructive sleep apnea (adult) (pediatric) | + + documented in this encounter
--- OUTSIDE RECORDS SUMMARY | ~2019-10-23 | XMS | Encounter Summary ---
Demographics + + + | Address | [address] | | | [place] [address] | + + + | Home Phone | | + + + | Preferred Language | Unknown | + + + | Marital Status | Single | + + + | Restorationist Affiliation | [id number] | + + + | Race | Unknown | + + + | Ethnic Group | Unknown | + + + Author + + + | Author | [facility] | | | and Rainerana | + + + | Organization | [facility] [...] [place], [place] | | | | | [address] | | + + + + + | Jelena Hill | ECON | [place] | | | | | [address] | | + + + + + Care Team Providers + +------+ + | Care Belt Glass Sander Name | Role | Phone | + +------+ + | Ivy Sun | PCP | | + +------+ + Encounter Details +--------+ + + + + | Date | Type | Department | Care Team | Description | +--------+ + + + + | 01/13/ | Abstract | [facility] [place] | Logan Wolf | H/O diagnostic tests | | 2013 | | JAQUELINE [address] | MD Missael [address] | (Primary Dx); | | | | [place], | [address] [place] | Aortic [place] | | | | [place] [address] | [place] [address] | enlargement (HCC) | | | | [phone] | [phone] | | | | | | | [...] Medicine | Dino Ivy | | | 2020 | Visit | | JUSTYN [address] | | | | | | [place] | | | | | | [address] | | | | | | | | +--------+---------+ + + + documented as of this encounter Visit Diagnoses + + | Diagnosis | + + | H/O diagnostic tests - Primary Other specified personal history presenting hazards to | | health | + + | Aortic root enlargement (HCC) Aortic ectasia, unspecified site | + + documented in this encounter"
--- OUTSIDE RECORDS SUMMARY | ~2019-10-23 | XMS | Encounter Summary ---
Demographics + + + | Address | [address] | | | [place] [address] | + + + | Home Phone [...] | Author | [facility] | | | and Rainerana | + + + | Organization | [facility] | | | and [...] [place], [place] | | | | | [address] | | + + + + + | Jelena Hill | ECON | [place] | | | | | [address] | | + + + + + Care Team Providers + +------+ + | Care Radiographer Technologist Name | Role | Phone | + +------+ + | Ivy Sun | PCP | | + +------+ + Encounter Details +--------+ + + + + | Date | Type | Department | Care Team | Description | +--------+ + + + + | 10/08/ | Abstract | [facility] | Ivy Sun | | | 2018 | | [facility] | L, INTERNAL CONTROL CONSULTANT [address] | | | | | [address] | [address] [place] | | | | | [place] | [address] | | | | | [address] | | | | | | [phone] | | | +--------+ + + + [...] [place] | | | | | | [address] | | | | | | | | +--------+---------+ + + + documented as of this encounter Procedures + +--------+ + + + | Procedure Name | Priori | Date/Time | Associated Diagnosis | Comments | | | ty | | | | + +--------+ + + + | DEXA BONE DENSITY | Routin | 08/12/2017 | | Results for this | | STUDY OLIVIA ROSSI | e | | | procedure are in the | | ASSESSMENT | | | | results section. | + +--------+ + + + documented in this encounter Results DEXA Bone Density wo Verkevyn Fx Assmt (08/12/2017) + + + + + + | Component | Value | Ref Range | Performed | Pathologist | | | | | At | Signature | + + + + + + | EXT LOWEST | -1.8Comment: Osteopenia. | | | | | T-SCORE | | | | | + + + + + + documented in this encounter Visit Diagnoses Not on filedocumented in this encounter"
--- OUTSIDE RECORDS SUMMARY | ~2019-10-23 | XMS | Encounter Summary ---
Demographics + + + | Address | [address] | | | [place] [address] | + + + | Home Phone | | + + + | Preferred Language | Unknown | + + + | Marital Status | Single | + + + | Jain Affiliation | 1077 | + + + | Race | Unknown | + + + | Ethnic Group | Unknown | + + + Author + + + | Author | [facility] | | | and Rainerana | + + + | Organization | [facility] | [...] [place], [place] | | | | | [address] | | + + + + + | Jelena Hill | ECON | [place] | | | | | [address] | | + + + + + Care Team Providers + +------+ + | Care Design Engineering Intern Name | Role | Phone | + +------+ + | Ivy Sun | PCP | | + +------+ + Reason for Visit +--------+ + | Reason | Comments | +--------+ + | Other | | +--------+ + Encounter Details +--------+ + + + + | Date | Type | Department | Care Team | Description | +--------+ + + + + | 11/20/ | Telephone | [facility] | Ivy Sun | Other | | 2013 | | MEDICINE [place] | [address] [address] | | | | | [address] | [place] [place], [place] | | | | | [place], [place] | [address] | | | | | [address] | | | | | | [phone] | | | +--------+ + + + [...] [place] | | | | | | [address] | | | | | | | | +--------+---------+ + + + documented as of this encounter Visit Diagnoses Not on filedocumented in this encounter"
--- OUTSIDE RECORDS SUMMARY | ~2019-10-23 | XMS | Encounter Summary ---
Demographics + + + | Address | [address] | | | [place] [address] | + + + | Home Phone [...] + + + | Author | [facility] | | | and Rainerana | + + + | Organization | [facility] | | | and Rainerana [...] [place], [place] | | | | | [address] | | + + + + + | Jelena Hill | ECON | [place] | | | | | [address] | | + + + + + Care Team Providers + +------+ + | Care Knowledge Management Consultant Name | Role | Phone | [...] | +--------+ + + + + | 09/28/ | Telephone | [facility] | Logan Wolf | Appointment | | 2013 | | CARDIOLOGY [address] | MD Missael [address] | | | | | [place], | [address] | | | | | [place] [address] | [place] [address] | | | | | [phone] | [phone] | | | | | | | [...]
--- OUTSIDE RECORDS SUMMARY | ~2019-10-23 | XMS | Encounter Summary ---
Demographics + + + | Address | [address] | | | [place] [address] | + + + | Home Phone [...] + + | Author | [facility] | | | and Rainerana | + + + | Organization | [facility] | | | and Rainerana [...] [place], [place] | | | | | [address] | | + + + + + | Jelena Hill | ECON | [place] | | | | | [address] | | + + + + + Care Team Providers + +------+ + | Care Box Office Attendant Name | Role | Phone | + +------+ + | Ivy Sun | PCP | | + +------+ + Reason for Visit +--------+ + | Reason | Comments | +--------+ + | Other | | +--------+ + Encounter Details +--------+ + + + + | Date | Type | Department | Care Team | Description | +--------+ + + + + | 03/08/ | Telephone | [facility] | Iyv Sun | Other | | 2013 | | MEDICINE [place] | JUSTYN [place] [address] | | | | | [address] | [place] [place], [place] | | | | | [place], [place] | [address] | | | | | [address] | | | | | | [phone] | | | +--------+ + + + [...] [place] | | | | | | [address] | | | | | | | | +--------+---------+ + + + documented as of this encounter Visit Diagnoses + + | Diagnosis | + + | Prediabetes - Primary Other abnormal glucose | + + documented in this encounter"
--- OUTSIDE RECORDS SUMMARY | ~2019-10-23 | XMS | Encounter Summary ---
Demographics + + + | Address | [address] | | | [place] [address] | + + + | Home Phone | | + + + | Preferred Language | Unknown | + + + | Marital Status | Single | + + + | Bahai Affiliation | 1077 | + + + | Race | Unknown | + + + | Ethnic Group | Unknown | + + + Author + + + | Author | [facility] | | | and Rainerana | + + + | Organization | [facility] | [...] [place], [place] | | | | | [address] | | + + + + + | Jelena Hill | ECON | [place] | | | | | [address] | | + + + + + Care Team Providers + +------+ + | Care Product Applications Scientist Name | Role | Phone | + [...] + | 05/21/ | Telephone | [facility] | Ivy Sun | TCM - Hosp FU | | 2019 | | MEDICINE [place] | JUSTYN [place] [address] | | | | | [address] | [address]VE [place] | | | | | [place] | [address] | | | | | [address] | | | | | | [phone] | | | +--------+ + + + [...] [place] | | | | | | [address] | | | | | | | | +--------+---------+ + + + documented as of this encounter Visit Diagnoses Not on filedocumented in this encounter"
--- OUTSIDE RECORDS SUMMARY | ~2019-10-23 | XMS | Encounter Summary ---
Demographics + + + | Address | [address] | | | [place] [address] | + + + | Home Phone [...] Author | [facility] | | | and Rainerana | + + + | Organization | 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 | + +--------+ + + + | EXTERNAL LAB: ALT | Routin | 09/30/2018 | | Results for this | | | e | | | procedure are in the | | | | | | results section. | + +--------+ + + + | EXTERNAL LAB: AST | Routin | 09/30/2018 | | Results for this | | | e | | | procedure are in the | | | | | | results section. | + +--------+ + + + | EXTERNAL LAB: | Routin | 09/30/2018 | | Results for this | | ALKALINE PHOSPHATASE | e | | | procedure are in the | | | | | | results section. | + +--------+ + + + | EXTERNAL LAB: | Routin | 09/30/2018 | | Results for this | | BILIRUBIN, TOTAL | e | | | procedure are in the | | | | | | results section. | + +--------+ + + + | EXTERNAL LAB: | Routin | 09/30/2018 | | Results for this | | ALBUMIN | e | | | procedure are in the | | | | | | results section. | + +--------+ + + + | EXTERNAL LAB: | Routin | 09/30/2018 | | Results for this | | PROTEIN, TOTAL | e | | | procedure are in the | | | | | | results section. | + +--------+ + + + | EXTERNAL LAB: | Routin | 09/30/2018 | | Results for this | | CALCIUM | e | | | procedure are in the | | | | | | results section. | + +--------+ + + + | EXTERNAL LAB: CARBON | Routin | 09/30/2018 | | Results for this | | DIOXIDE | e | | | procedure are in the | | | | | | results section. | + +--------+ + + + | EXTERNAL LAB: | Routin | 09/30/2018 | | Results for this | | CHLORIDE | e | | | procedure are in the | | | | | | results section. | + +--------+ + + + | EXTERNAL LAB: | Routin | 09/30/2018 | | Results for this | | POTASSIUM | e | | | procedure are in the | | | | | | results section. | + +--------+ + + + | EXTERNAL LAB: SODIUM | Routin | 09/30/2018 | | Results for this | | | e | | | procedure are in the | | | | | | results section. | + +--------+ + + + | EXTERNAL LAB: | Routin | 09/30/2018 | | Results for this | | URINALYSIS | e | | | procedure are in the | | | | | | results section. | + +--------+ + + + | EXTERNAL LAB: | Routin | 09/30/2018 | | Results for this | | TRIGLYCERIDES | e | | | procedure are in the | | | | | | results section. | + +--------+ + + + | EXTERNAL LAB: | Routin | 09/30/2018 | | Results for this | | CHOLESTEROL, HDL | e | | | procedure are in the | | | | | | results section. | + +--------+ + + + | EXTERNAL LAB: | Routin | 09/30/2018 | | Results for this | | CHOLESTEROL, TOTAL | e | | | procedure are in the | | | | | | results section. | + +--------+ + + + | EXTERNAL LAB: | Routin | 09/30/2018 | | Results for this | | CHOLESTEROL, LDL | e | | | procedure are in the | | | | | | results section. | + +--------+ + + + | EXTERNAL LAB: EGFR | Routin | 09/30/2018 | | Results for this | | | e | | | procedure are in the | | | | | | results section. | + +--------+ + + + | EXTERNAL LAB: | Routin | 09/30/2018 | | Results for this | | CREATININE | e | | | procedure are in the | | | | | | results section. | + +--------+ + + + | LIPID PANEL | Routin | 09/30/2018 | | Results for this | | | e | | | procedure are in the | | | | | | results section. | + +--------+ + + + | URINALYSIS, REFLEX | Routin | 09/30/2018 | | Results for this | | MICROSCOPIC AND/OR | e | | | procedure are in the | | CULTURE | | | | results section. | + +--------+ + + + | HEMOGLOBIN A1C | Routin | 09/30/2018 | | Results for this | | | e | | | procedure are in the | | | | | | results section. | + +--------+ + + + | COMPREHENSIVE | Routin | 09/30/2018 | | Results for this | | METABOLIC PANEL | e | | | procedure are in the | | | | | | results section. | + +--------+ + + + documented in this encounter Results Urinalysis, Reflex Microscopic and/or Culture (09/30/2018) + + + + + + | Component | Value | Ref Range | Performed | Pathologist | | | | | At | Signature | + + + + + + | Color | Agatha (A) | Light Yellow, | REFERENCE | | | | | Yellow | LAB | | | | | | [facility] | | + + + + + + | Clarity | Turbid | | REFERENCE | | | | | | LAB | | | | | | [facility] | | + + + + + + | Bilirubin, | Negative | Negative | REFERENCE | | | Urine | | | LAB | | | | | | [facility] | | + + + + + + | Urobilinoge | Normal | < 0.2 mg/dL, | REFERENCE | | | n, Urine | | 1.0 mg/dL, 4.0 | LAB | | | | | mg/dL, Normal, | [facility] | | | | | 1.0 E.U./dL, | | | | | | 0.2 E.U./dL, | | | | | | 0.2 mg/dL, | | | | | | Negative, 1 | | | | | | mg/dL, <2.0 | | | | | | mg/dL | | | + + + + + + | Nitrite, | Negative | Negative | REFERENCE | | | Urine | | | LAB | | | | | | [facility] | | + + + + + + | WBC UA | 30 (A) | 0 - 4 /HPF | REFERENCE | | | | | | LAB | | | | | | [facility] | | + + + + + + | CRYSTAL UA | Negative | | REFERENCE | | | | | | LAB | | | | | | [facility] | | + + + + + + | BACTERIA UA | 1+ (A) | Negative /HPF | REFERENCE | | | | | | LAB | | | | | | [facility] | | + + + + + + | COLLECTION | Clean Catch | | REFERENCE | | | METHOD 1 | | | LAB | | | | | | [facility] | | + + + + + + | Hyaline | 0 | 0 - 1+ | REFERENCE | | | cast, UA | | | LAB | | | | | | [facility] | | + + + + + + | SQUAMOUS | 2-5 (A) | 0 - 2 /LPF | REFERENCE | | | EPITHELIAL | | | LAB | | | UA | | | [facility] | | + + + + + + + + | Specimen | + + | Urine | + + + + + + + | Performing | Address | City/State/Zipcode | Phone Number | | Organization | | | | + + + + + | REFERENCE LAB | [address] | [place] [address] | [phone] | | [facility] | | | | + + + + + | REFERENCE LAB | [address] | [place] [address] | [phone] | | [facility] | | | | + + + + + Comprehensive Metabolic Panel (09/30/2018) + +-------+ + + + | Component | Value | Ref Range | Performed | Pathologist | | | | | At | Signature | + +-------+ + + + | Anion Gap | 17 | 7 - 21 mmol/L | REFERENCE | | | | | | LAB | | | | | | [facility] | | + +-------+ + + + | Bun/Creatin | 19.6 | 6.0 - 28.6 | REFERENCE | | | ine | | | LAB | | | | | | [facility] | | + +-------+ + + + | Globulin | 3.3 | 1.8 - 3.5 | REFERENCE | | | | | | LAB | | | | | | [facility] | | + +-------+ + + + | Albumin/Cindy | 1.2 | 1.1 - 2.4 | REFERENCE | | | bulin Ratio | | | LAB | | | | | | [facility] | | + +-------+ + + + + + | Specimen | + + | Blood | + + + + + + + | Performing | Address | City/State/Zipcode | Phone Number | | Organization | | | | + + + + + | REFERENCE LAB | [address] | [place] [address] | [phone] | | [facility] | | | | + + + + + | REFERENCE LAB | [address] | [place] [address] | [phone] | | [facility] | | | | + + + + + Lipid Panel (09/30/2018) + +-------+ + + + | Component | Value | Ref Range | Performed | Pathologist | | | | | At | Signature | + +-------+ + + + | Chol/HDL | 2.7 | 4.4 | REFERENCE | | | Ratio | | | LAB | | | | | | [facility] | | + +-------+ + + + | VLDL | 16 | 4 - 40 | REFERENCE | | | Cholesterol | | | LAB | | | Nic | | | [facility] | | + +-------+ + + + | Non HDL | 92 | 130 | REFERENCE | | | Chol. | | | LAB | | | (LDL+VLDL) | | | [facility] | | + +-------+ + + + + + | Specimen | + + | Blood | + + + + + + + | Performing | Address | City/State/Zipcode | Phone Number | | Organization | | | | + + + + + | REFERENCE LAB | [address] | [place] [address] | [phone] | | [facility] | | | | + + + + + | REFERENCE LAB | [address] | [place] [address] | [phone] | | [facility] | | | | + + + + + Hemoglobin A1C (09/30/2018) + +---------+ + + + | Component | Value | Ref Range | Performed | Pathologist | | | | | At | Signature | + +---------+ + + + | Hemoglobin | 6.0 (A) | 5.7 % | REFERENCE | | | A1c | | | LAB | | | | | | [facility] | | + +---------+ + + + + + | Specimen | + + | Blood | + + + + + + + | Performing | Address | City/State/Zipcode | Phone Number | | Organization | | | | + + + + + | REFERENCE LAB | [facility] | [place] [address] | [phone] | | [facility] | | | | + + + + + | REFERENCE LAB | [address] [facility] | [place] [address] | [phone] | | [facility] | | | | + + + + + External Lab: Glucose (09/30/2018) + +---------+ + + + | Component | Value | Ref Range | Performed | Pathologist | | | | | At | Signature | + +---------+ + + + | Glucose, | 120 (A) | 70 - 100 | | | | External | | | | | + +---------+ + + + External Lab: ALT (09/30/2018) + +-------+ + + + | Component | Value | Ref Range | Performed | Pathologist | | | | | At | Signature | + +-------+ + + + | ALT, | 20 | 7 - 52 | | | | External | | | | | + +-------+ + + + External Lab: AST (09/30/2018) + +-------+ + + + | Component | Value | Ref Range | Performed | Pathologist | | | | | At | Signature | + +-------+ + + + | AST, | 23 | 13 - 39 | | | | External | | | | | + +-------+ + + + External Lab: Alkaline Phosphatase (09/30/2018) + +-------+ + + + | Component | Value | Ref Range | Performed | Pathologist | | | | | At | Signature | + +-------+ + + + | ALP, | 94 | 31 - 130 | | | | External | | | | | + +-------+ + + + External Lab: Bilirubin, Total (09/30/2018) + +-------+ + + + | Component | Value | Ref Range | Performed | Pathologist | | | | | At | Signature | + +-------+ + + + | Bilirubin, | 0.6 | 0 - 1.2 | | | | Total, | | | | | | External | | | | | + +-------+ + + + External Lab: Albumin (09/30/2018) + +-------+ + + + | Component | Value | Ref Range | Performed | Pathologist | | | | | At | Signature | + +-------+ + + + | Albumin, | 3.8 | 3.5 - 5 | | | | External | | | | | + +-------+ + + + External Lab: Protein, Total (09/30/2018) + +-------+ + + + | Component | Value | Ref Range | Performed | Pathologist | | | | | At | Signature | + +-------+ + + + | Protein, | 7.1 | 6 - 8.3 | | | | Total, | | | | | | External | | | | | + +-------+ + + + External Lab: Calcium (09/30/2018) + +-------+ + + + | Component | Value | Ref Range | Performed | Pathologist | | | | | At | Signature | + +-------+ + + + | Calcium, | 9.6 | 8.5 - 10.3 | | | | External | | | | | + +-------+ + + + External Lab: Carbon Dioxide (09/30/2018) + +-------+ + + + | Component | Value | Ref Range | Performed | Pathologist | | | | | At | Signature | + +-------+ + + + | Carbon | 26 | 19 - 31 | | | | Dioxide, | | | | | | External | | | | | + +-------+ + + + External Lab: Chloride (09/30/2018) + +-------+ + + + | Component | Value | Ref Range | Performed | Pathologist | | | | | At | Signature | + +-------+ + + + | Chloride, | 100 | 95 - 112 | | | | External | | | | | + +-------+ + + + External Lab: Potassium (09/30/2018) + +-------+ + + + | Component | Value | Ref Range | Performed | Pathologist | | | | | At | Signature | + +-------+ + + + | Potassium, | 4.1 | 3.6 - 5.1 | | | | External | | | | | + +-------+ + + + External Lab: Sodium (09/30/2018) + +-------+ + + + | Component | Value | Ref Range | Performed | Pathologist | | | | | At | Signature | + +-------+ + + + | Sodium, | 139 | 132 - 143 | | | | External | | | | | + +-------+ + + + External Lab: Urinalysis (09/30/2018) + + + + + + | Component | Value | Ref Range | Performed | Pathologist | | | | | At | Signature | + + + + + + | UA Blood, | negative | | | | | External | | | | | + + + + + + | UA Glucose, | normal | | | | | External | | | | | + + + + + + | UA Ketones, | negative | | | | | External | | | | | + + + + + + | UA Ph, | 5 | 5 - 9 | | | | External | | | | | + + + + + + | UA | 100 | | | | | Proteins, | | | | | | External | | | | | + + + + + + | UA RBC, | 2 | 0 - 4 | | | | External | | | | | + + + + + + | UA Specific | 1.029 | 1.005 - 1.03 | | | | [place], | | | | | | External | | | | | + + + + + + | UA | trace | | | | | Leukocyte | | | | | | Esterase, | | | | | | External | | | | | + + + + + + External Lab: Triglycerides (09/30/2018) + +-------+ + + + | Component | Value | Ref Range | Performed | Pathologist | | | | | At | Signature | + +-------+ + + + | Triglycerid | 78 | 30 - 150 | | | | es, | | | | | | External | | | | | + +-------+ + + + + + | Specimen | + + | Blood | + + External Lab: Cholesterol, HDL (09/30/2018) + +-------+ + + + | Component | Value | Ref Range | Performed | Pathologist | | | | | At | Signature | + +-------+ + + + | HDL | 55.0 | 40 mg/dl | | | | Cholesterol | | | | | | , External | | | | | + +-------+ + + + + + | Specimen | + + | Blood | + + External Lab: Cholesterol, Total (09/30/2018) + +-------+ + + + | Component | Value | Ref Range | Performed | Pathologist | | | | | At | Signature | + +-------+ + + + | Cholesterol | 147 | 200 mg/dl | | | | , Total, | | | | | | External | | | | | + +-------+ + + + + + | Specimen | + + | Blood | + + External Lab: Cholesterol, LDL (09/30/2018) + +-------+ + + + | Component | Value | Ref Range | Performed | Pathologist | | | | | At | Signature | + +-------+ + + + | LDL | 76 | 100 | | | | Cholesterol | | | | | | , Direct, | | | | | | External | | | | | + +-------+ + + + + + | Specimen | + + | Blood | + + External Lab: eGFR (09/30/2018) + +--------+ + + + | Component | Value | Ref Range | Performed | Pathologist | | | | | At | Signature | + +--------+ + + + | eGFR, | 57 (A) | 60 | REFERENCE | | | External | | | LAB | | | | | | [facility] | | + +--------+ + + + + + | Specimen | + + | Blood | + + + + + + + | Performing | Address | City/State/Zipcode | Phone Number | | Organization | | | | + + + + + | REFERENCE LAB | [address] | [place] [address] | [phone] | | [facility] | | | | + + + + + | REFERENCE LAB | [address] | [place] [address] | [phone] | | [facility] | | | | + + + + + External Lab: Creatinine (09/30/2018) + +-------+ + + + | Component | Value | Ref Range | Performed | Pathologist | | | | | At | Signature | + +-------+ + + + | Creatinine, | 0.97 | 0.7 - 1.25 | | | | External | | | | | + +-------+ + + + + + | Specimen | + + | Blood | + + documented in this encounter Visit Diagnoses Not on filedocumented in this encounter"
--- OUTSIDE RECORDS SUMMARY | ~2019-10-23 | XMS | Encounter Summary ---
Demographics + + + | Address | [address] | | | [place] [address] | + + + | Home Phone | | + + + | Preferred Language | Unknown | + + + | Marital Status | Single | + + + | Gnosticist Affiliation | 1077 | + + + | Race | Unknown | + + + | Ethnic Group | Unknown | + + + Author + + + | Author | [facility] | | | and Rainerana | + + + | Organization | [facility] | | | and Rainerana [...] [place], [place] | | | | | [address] | | + + + + + | [address] | ECON | [place] | | | | | [address] | | + + + + + Care Team Providers + +------+ + | Care Cloth Baler Name | Role | Phone | + +------+ + | Ivy Sun | PCP | | + +------+ + Encounter Details +--------+ + + + + | Date | Type | Department | Care Team | Description | +--------+ + + + + | 04/23/ | Abstract | [facility] | Ivy Sun | | | 2015 | | [facility] | L, 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 | [address] | [place] | [phone] | | [facility] | | [address] | | | - LABORATORY | | [...] | 1.026 | | | | | [place], | | | | | | External [...]
--- OUTSIDE RECORDS SUMMARY | ~2019-10-23 | XMS | Encounter Summary ---
Demographics + + + | Address | [address] | | | [place] [address] | + + + | Home Phone [...] | Author | [facility] | | | and Rainerana | + + + | Organization | [facility] [...] [place], [place] | | | | | [address] | | + + + + + | [address] | ECON | [place] | | | | | [address] | | + + + + + Care Team Providers + +------+ + | Care Expander Machine Operator Name | Role | Phone | + +------+ + | Ivy Sun | PCP | | + +------+ + Reason for Visit + + + | Reason | Comments | + + + | New Patient | Compression fracture | + + + Evaluate & Treat [...] Roya, | | | Services | | Compression | Ivy Keating, | Lorenzo Galeana DO | | | Required | | fracture of | [employer] [address] | [address] | | | | | thoracic | [address] | [address] | | | | | vertebra, | [place], | [place], [place] | | | | | non-traumati | [place] [address] | [address] Phone: | | | | | c, initial | Phone: | [phone] | | | | | encounter | [phone] | Fax: | | | | | ([facility]) | Fax: | [phone] | | | | | | [phone] | | +--------+ + + + + + Encounter Details +--------+---------+ + + + | Date | Type | Department | Care Team | Description | +--------+---------+ + + + | 09/16/ | Office | [facility] | Calderon Shaw, | Traumatic | | 2014 | Visit | NEUROSURGERY [address] | PA-C [address] | compression fracture | | | | [address] | [address] [place] | of T8 thoracic | | | | [place], [place] | [place] [address] | vertebra, closed, | | | | [address] | [phone] | initial encounter | | | | [phone] | | ([facility]) (Primary Dx) | +--------+---------+ + + + Social History [...] + + + | Blood Pressure | 120/83 | 09/16/2015 11:58 AM | | | | | PST | | + + + + + | Pulse | 98 | 09/16/2015 11:58 AM | | | | | PST | | + + + + + | Temperature | - | - | | + + + + + | Respiratory Rate | 16 | 09/16/2015 11:58 AM | | | | | PST | | + + + + + | Oxygen Saturation | - | - | | + + + + + | Inhaled Oxygen | - | - | | | Concentration | | | | + + + + + | Weight | 131.1 kg (289 lb) | 09/16/2015 11:58 AM | | | | | PST | | + + + + + | Height | 170.2 cm (5' 7") | 09/16/2015 11:58 AM | | | | | PST | | + + + + + | Body Mass Index | 45.26 | 09/16/2015 11:58 AM | | | | | PST | | + + + + + documented in this encounter Progress Notes Calderon Shaw PA - 09/16/2015 12:16 PM PSTFormatting of this note might be different f rom the original. JAVON Rowe [address] [facility] [address] [place] [address] FAX: NEUROSURGERY HISTORY AND PHYSICAL EXAMINATION CHIEF COMPLAINT: Chief Complaint Patient presents with New Patient Compression fracture HISTORY OF PRESENT ILLNESS: The patient is a 65 y.o. female with the complaint of thoracic back symptoms that began about 4 weeks ago. The patient describes a rapid on set of back a nd right flank pain that came on rapidly. She denies any trauma or injury. She does remembe r lifting something heavy about 2 weeks before symptoms started, but otherwise can not think of anything that would have caused this. The symptoms have been rapidly improving. Her pa in is now down to a 1-2/10. She rates the pain as mild. The symptoms are daily. She describes the pain as aching and ocasionally sharp.. Patient denies any radiating pain. The pain she has is in the middle of her spine and is pr esent in the middle area of her thoracic spine. She originally had some pain in the right la teral flank area but this has pretty much resolved. Patient denies any recent weight loss, f ever or chills and otherwise has no complaints or concerns. The patient does not report any change in bowel or bladder function recently. Her symptoms improve with rest. Her symptoms worsen with strenuous exertion. She has tried rest and NSAIDs and has been getting better. PAST MEDICAL HISTORY: Past Medical History Diagnosis [...] History of compression fracture of spine 08/17/2015 PAST SURGICAL HISTORY: Past Surgical History Procedure Laterality Date Back surgery 1992 laminal discectomy Gastroplasty 1986 Bunionectomy 1987 Toe surgery Endometrial biopsy 2002 Knee arthroscopy 2006 Left Total knee arthroplasty 07/15/13 left total knee replacement Dilation and curettage of uterus 06/03/2014 HYSTEROSCOPY FRACTIONAL D&C; Laterality: N/A; Surgeon: Eleazar Mustaaf, DO; Loca tion: [facility] CURRENT MEDICATIONS: Current Outpatient Prescriptions Medication Sig Dispense Refill alendronate (FOSAMAX) 70 mg tablet Take 1 tablet by mouth Once a week. 12 tablet 3 aspirin (ASPIRIN ADULT LOW STRENGTH) 81 MG EC tablet Take 81 mg by mouth Daily. Calcium Carb-Cholecalciferol (CALCIUM 1000 + D) 1000-800 MG-UNIT TABS Take 1 tablet by mouth Daily. cholecalciferol (VITAMIN D-3) 1,000 units capsule Take 1,000 Units by mouth Daily. FreeStyle Lancets MISC Test blood sugar twice daily. 790.29 100 each 5 gabapentin (NEURONTIN) 300 mg capsule Take one capsule by mouth at bedtime for 3 days, then increase to 600 mg at bedtime daily 90 capsule 1 gabapentin (NEURONTIN) 600 MG tablet Take 1 tablet by mouth nightly. 90 tablet 3 glucose blood test strips (FREESTYLE LITE) strip Test blood sugar twice daily. 790.2 9 100 each 5 HYDROcodone-acetaminophen (NORCO) 5-325 mg per tablet Take 1 tablet by mouth every 6 ho urs as needed for Pain. 40 tablet 0 lisinopril (PRINIVIL, ZESTRIL) 10 mg tablet Take 1 tablet by mouth every morning. 90 ta blet 1 MedroxyPROGESTERone Acetate (PROVERA PO) Take 1 tablet by mouth. Take 1 tablet QD x 10 days every 3 months for breakthrough menses post menopause. metFORMIN (GLUCOPHAGE) 500 mg tablet Take 1 tablet by mouth daily (with breakfast). 90 tablet 1 nortriptyline (PAMELOR) 10 MG capsule Take 3 capsules by mouth nightly. 270 capsule 1 paroxetine (PAXIL) 40 MG tablet TAKE 1 TABLET BY MOUTH DAILY 90 tablet 1 rOPINIRole (REQUIP) 2 MG tablet Take 1 tablet by mouth nightly. 90 tablet 3 simvastatin (ZOCOR) 10 mg tablet TAKE 1 TABLET BY MOUTH NIGHTLY 90 tablet 3 triamcinolone (KENALOG) 0.025% cream Apply thin film [...] patient reports that she quit smoking about 9 months ago. Her smoking use included Cig arettes. She has a 7.5 pack-year smoking history. She has never used smokeless tobacco. She reports that she does not drink alcohol or use illicit drugs. REVIEW OF SYSTEMS GENERALLY: No fever, no night sweats, no anemia, no fatigue, + recent profound weight georgina nges. EYES: + eye problems, + use of corrective lenses, no eye injury, no double vision, no blin dness. EARS, NOSE, AND THROAT: No changes in taste or smell, + hearing difficulty, no ringing in the ears, no ear drainage, no dizziness, no voice changes, no difficulty swallowing, + signi ficant snoring, + sleep apnea, no sinus problems, + major dental work. NEUROLOGICALLY: Please see the review of systems discussed above in the history of present illness. In addition, the patient has tremor/shaking. [...] disease, + osteopenia or osteoporosis, no breast drainag e. SKIN: No breast lumps, + skin changes, no rashes, no itches. HEMATOLOGIC/LYMPHATIC: No enlarged lymph nodes, no easy or unusual bleeding, no personal h istory of cancer. RHEUMATOLOGIC: No joint arthritis, no rheumatoid arthritis. PHYSICAL EXAMINATION: Blood pressure 120/83, pulse 98, resp. rate 16, height 1.702 m (5' 7"), weight 131.09 kg (2 89 lb), not currently . Body mass index is 45.25 kg/(m^2). GENERAL: Lucie Miller is in no acute distress with unlabored respirations. The patien t does not appear uncomfortable throughout the exam today. HEENT: [...] and without palpable masses. The patient is morb idly obese. BMI 45 SPINE: There is tenderness in the midline of the cervical or thoracic spine. There is no m ajor palpable deformity of the spine. The lumbar spine shows there is no tenderness in the midline of the L1, L2, L3, L4, L5, S1 levels. To palpation, there is no signficant bilateral myofascial tenderness. EXTREMITIES: No cyanosis, clubbing, or edema. Distal pulses are palpable. NEUROLOGICAL EXAM: MENTAL STATUS: The patient is awake, alert, and oriented. She follows simple and complex commands. Her speech is fluent, she comprehends speech well, and she repeats well. She has no apparent deficits with short or termite treater helper memory. CRANIAL NERVES: II: Acuity is intact. [...] Intrinsics 5 5 Ulnar Intrinsics 5 5 Grab Setter Strength 5 5 Hip Flexion 5 5 [...] DOWNGOING GAIT: Gait is steady. PERIPHERAL NERVE/MISC: Straight leg raise is negative bilaterally. Adriel's test of the hips is negative bilaterally. RADIOGRAPHIC REVIEW: The patient's imaging was reviewed in detail with the patient today during the visit. The MRI from August 24 2015 shows a compression fracture at T8. The general integrity of the vertebral body is well maintained and the majority of the height of the body is maintained. There are no elements that enter into the spinal canal. There are no findings that would sug gest tumor activity. Patient does have a scoliotic upper thoracic spine. Thoracic xrays are difficult to read but there is a vertebral body in the mid to lower thor acic spine that has a loss of height and represents a compression fracture. Patient also had x-rays taken of her ribs with shows a nondisplaced rib fracture at the 9th rib. Otherwise i s unremarkable. ASSESSMENT: NEUROSURGICAL DIAGNOSES: Encounter Diagnosis Name Primary? Traumatic compression fracture of T8 thoracic vertebra, closed, initial encounter (HCC) Yes GENERAL DIAGNOSES: Past Medical History Diagnosis Date [...] Echo 12/18/13, LVEF 69%. Prediabetes 12/09/2013 Cataract bilateral History of compression fracture of spine 08/17/2015 PLAN: Lucie Miller presented today, and it was a pleasure seeing this patient and assessing her problems. The patient has a relatively minor compression fracture that has improved gre atly in a short time. I had a lengthy discussion with the patient about her options for care including surgical a nd non-surgical options. At this point this is not a surgical problem nor is it likely to b ecome one. I have encouraged patient to continue to protect her back and ribs. She should not lif mor than about 20 pounds at this time and I have cautioned her from lifting more than anything w eighing more than about 5 pounds overhead for the next 6 weeks. After that she can slowly ad mars her activities as tolerated. Patient is aware that should she get pain shooting down h er legs are should she begin having trouble with balance, bowels or bladder, I would like he r to call our office for further workup and instructions. As long as she is able to return b ack to her baseline activity in the next 3-4 months I do not need to see her back. ELECTRONICALLY SIGNED BY: JAVON Rowe, 09/18/2015 8:20 documented in this encounter Plan of Treatment [...] [place] | | | | | | [address] | | | | | | | | +--------+---------+ + + + documented as of this encounter Visit Diagnoses + + | Diagnosis | + + | Traumatic compression fracture of T8 thoracic vertebra, closed, initial encounter | | ([facility]) - Primary | + + documented in this encounter
--- OUTSIDE RECORDS SUMMARY | ~2019-10-23 | XMS | Encounter Summary ---
Demographics + + + | Address | [address] | | | [place] [address] | + + + | Home Phone | | + + + | Preferred Language | Unknown | + + + | Marital Status | Single | + + + | Scientologist Affiliation | 1077 | + + + | Race | Unknown | + + + | Ethnic Group | Unknown | + + + Author + + + | Author | [facility] | | | and Rainerana | + + + | Organization | [facility] [...] [place], [place] | | | | | [address] | | + + + + + | Jelena Hill | ECON | [place] | | | | | [address] | | + + + + + Care Team Providers + +------+ + | Care Clay Pigeon Loader Name | Role | Phone | + [...] | | | | | | | UT | | | | | | | HYSTEROSCOPY | | | | | | | ,W/ENDO BX | | | | | | | DILATION AND | | | | | | | CURETTAGE/ | | | | | | | HYSTEROSCOPY | | | +--------+--------+ + + + + Encounter Details +--------+---------+ + + + | Date | Type | Department | Care Team | Description | +--------+---------+ + + + | 06/03/ | Surgery | [facility] | Eleazar Mustafa | HYSTEROSCOPY | | 2014 | | [facility] | Liliana, DO [address] | FRACTIONAL D&C | | | | [address] | [address] [place] | | | | | [place], [place] | [place] [address] | | | | | [address] | [phone] | | | | | [phone] | | | +--------+---------+ + + + [...] + + + | Blood Pressure | 99/77 | 06/03/2014 10:00 AM | | | | | PDT | | + + + + + | Pulse | 92 | 06/03/2014 10:00 AM | | | | | PDT | | + + + + + | Temperature | 36.8 C (98.2 F) | 06/03/2014 9:00 AM | | | | | PDT | | + + + + + | Respiratory Rate | 16 | 06/03/2014 9:40 AM | | | | | PDT | | + + + + + | Oxygen Saturation | 93% | 06/03/2014 10:00 AM | | | | | PDT | | + + + + + | Inhaled Oxygen | - | - | | | Concentration | | | | + + + + + | Weight | 117.9 kg (260 lb) | 06/03/2014 6:00 AM | | | | | PDT | | + + + + + | Height | 170.2 cm (5' 7") | 06/03/2014 6:00 AM | | | | | PDT | | + + + + + | Body Mass Index | 40.72 | 06/03/2014 6:00 AM | | | | | PDT | | + + + + + documented in this encounter Discharge Instructions Instructions Erin Moreno RN - 06/03/2014Formatting of this note might be different f rom the original. D&C Your healthcare provider has recommended you have a D&C (dilation and curettage). This comm on procedure helps your healthcare provider learn more about problems inside your uterus. Du ring a D&C, the cervix (opening of the uterus) is widened, or dilated. Tissue samples are th en removed from the endometrium (lining of the uterus) with an instrument called a curette. In many cases, D&C is done to find the cause of abnormal vaginal bleeding. Or, you may need a D&C as a form of treatment. You ll lie on a table with your legs bent, as you do for a pelvic exam. Preparing for D&C Arrange for an adult family member or friend to drive you home. Don t eat or drink anything after the midnight before your D&C (unless told otherwise by your healthcare provider). During Your D&C Just before your D&C, you ll receive medication to prevent pain. This may be given throug h an IV. You may be awake but relaxed during the procedure. Or, you may be completely asleep . The procedure will not begin until the pain medication has taken effect. During your D&C: After the cervical canal is dilated, a curette is inserted into the uterus to take tissue s amples Instruments are used to hold the vagina open and to steady the uterus. The cervical amrita l is widened using tapered instruments called dilators. A hysteroscope (thin, flexible telescope) may be inserted into the vagina. This allows y our healthcare provider to see into the uterus. The curette is inserted into the uterus. Tissue samples are taken from several areas. Th shanta samples are sent to a lab to be studied. After Your D&C You will rest for a while in a recovery area. You can expect some cramping for a few hours after D&C. This can be controlled with an o [id number]-mbq-[id number] pain reliever. You may have some light bleeding for a few weeks. Use pads instead of tampons. Take showers instead of baths for about a week. Ask your healthcare provider if you shou ld avoid exercising or having sex for a period of time. Risks and Complications D&C rarely causes complications. However, as with any procedure, D&C has some risks. Before your D&C, your healthcare provider will discuss these with you. You may be asked to sign a consent form. Risks may include: Infection Heavy bleeding Perforation of the uterine wall or damage to nearby organs The need for additional tests or procedures Risks associated with anesthesia (the medication that makes you sleep during surgery) Call Your Healthcare Provider If You Have: Heavy bleeding (more than 1 pad an hour). A fever [id number]. Increasing abdominal pain, tenderness, or cramping. Foul-smelling discharge. [id number] Alec [facility], [address] [place] [address], [place] [address]. All rights reserve d. This information is not intended as a substitute for professional medical care. Always fo llow your healthcare professional's instructions. documented in this encounter Medications at Time [...] | | Take 1 tablet by | 15 | 0 | 06/03/20 | | | HYDROcodone-acetamin | mouth every 6 hours | tablet | | 14 | 4 | | ophen (NORCO) 5-325 | as [...] tablet by | 90 | 1 | 04/07/20 | | | (GLUCOPHAGE) 500 mg | mouth daily (with | tablet | | 14 | 5 | | tablet | breakfast). | | | | | + + [...] +---------+ + + | nortriptyline | TAKE 1 CAPSULE BY | 270 | 1 | 03/16/20 | | | (PAMELOR) 10 MG | MOUTH EVERY NIGHT AT | capsule | | 14 | 4 | | capsule | BEDTIME FOR 1 WEEK. | | | | | | | MAY INCREASE 10MG | | | | | | | EVERY WEEK UNITL | | | | | | | 30MG AT BEDTIME. | | | | | + + [...] [place] | | | | | | [id number] | | | | | | | | +--------+---------+ + + + documented as of this encounter Procedures + +--------+ + + + | Procedure Name | Priori | Date/Time | Associated Diagnosis | Comments | | | ty | | | | + +--------+ + + + | ECG 12 LEAD | STAT | 08/23/2014 | | Results for this | | | | 6:18 PM | | procedure are in the | | | | PDT | | results section. | + +--------+ + + + | DILATION AND | | 06/03/2014 | Postmenopausal | | | CURETTAGE | | 7:28 AM | bleeding | | | | | PDT | | | + +--------+ + + + | CBC WITH | Routin | 06/03/2014 | | Results for this | | DIFFERENTIAL | e | 7:19 AM | | procedure are in the | | | | PDT | | results section. | + +--------+ + + + | POC GLUCOSE | Routin | 06/03/2014 | | Results for this | | | e | 7:18 AM | | procedure are in the | | | | PDT | | results section. | + +--------+ + + + documented in this encounter Results ECG 12 lead (08/23/2014 6:18 PM PDT) + + + | Narrative | Performed At | + + + | Johnson Shetty MD 08/23/2014 18:18 Adult ECG Report | | | Name: Lcuie Miller Age: 64 y.o. Gender: female 06/03/14 at | | | 7:39 Narrative Interpretation: Sinus rhythm. Right bundle branch | | | block. Possible lateral infarction age-indeterminate. | | + + + + + | Procedure Note | + + | Johnson Shetty MD - 08/23/2014 6:18 PM PDT Adult ECG Report Name: Lucie Marrufo | | Paul Age: 64 y.o. Gender: female06/03/14 at 7:39 Narrative Interpretation: Sinus rhythm. | | Right bundle branch block. Possible lateral infarction age-indeterminate. | | Age: 64 y.o. | | Gender: female | | | |06/03/14 at 7:39 | | Narrative Interpretation: Sinus rhythm. Right bundle branch block. Possible lateral infa rction age-indeterminate. | + + CBC with Differential (06/03/2014 7:19 AM PDT) + + + + + + | Component | Value | Ref Range | Performed | Pathologist | | | | | At | Signature | + + + + + + | WBC | 7.0 | 4.0 - 11.0 K/uL | [facility] | | | | | | [facility] | | | [facility] | [facility] | [facility] | [facility] - | | | | | | LABORATORY | | + + + + + + | RBC | 4.51 | 3.70 - 5.20 | [facility] | | | | | M/uL | [facility] | | | | | | [facility] | | | | | | [facility] - | | | | | | LABORATORY | | + + + + + + | Hemoglobin | 13.7 | 11.5 - 16.0 | [facility] | | | | | g/dL | [facility] | | | | | | [facility] | | | | | | [facility] - | | | | | | LABORATORY | | + + + + + + | Hematocrit | 42.2 | 34.0 - 47.0 % | [facility] | | | | | | [facility] | | | | | | [facility] | | | | | [facility] - | | | | | | LABORATORY | | + + + + + + | MCV | 93.5 | 83.0 - 101.0 fL | [facility] | | | | | | [facility] | | | | | | [facility] | | | | [facility] - | | | | | | LABORATORY | | + + + + + + | MCH | 30.3 | 28.0 - 35.0 pg | [facility] | | | | | [facility] | | | | | | [facility] | | | | | [facility] - | | | | | | LABORATORY | | + + + + + + | MCHC | 32.5 | 32.0 - 36.0 | [facility] | | | | | g/dL | [facility] | | | | | | [facility] | | | | | | [facility] - | | | | | | LABORATORY | | + + + + + + | RDW-CV | 15.1 (H) | <15.0 % | [facility] | [facility] | | | [facility] | | | | | | [facility] | | | | | [facility] - | | | | | | LABORATORY | | + + + + + + | Platelet | 295 | 140 - 440 K/uL | [facility] | | | Count | | | [facility] | | | | | | [facility] | | | | [facility] - | | | | | | LABORATORY | | + + + + + + | MPV | 8.3 | fL | [facility] | | | | | [facility] | | | | | | [facility] | | | | [facility] - | | | | | | LAB[facility]ATORY | | + + + + + + | % | 52.6 | 45.0 - 82.0 % | [facility] | | | Neutrophils | | | [facility] | | | | | | [facility] | | | | | | [facility] - | | | | | | LABORATORY | | + + + + + + | % | 31.5 | 20.0 - 45.0 % | [facility] | | | Lymphocytes | | | [facility] | | | | | | [facility] | | | | | | [facility] - | | | | | | LABORATORY | | + + + + + + | % Monocytes | 8.9 | 4.0 - 12.0 % | [facility] | | | | | | [facility] | | | | | | [facility] | | | | | [facility] - | | | | | | LABORATORY | | + + + + + + | % | 5.6 (H) | 0.0 - 5.0 % | [facility] | | | Eosinophils | | | [facility] | | | | | | [facility] | | | | | | C[facility] - | | | | | | LABORATORY | | + + + + + + | % Basophils | 1.4 (H) | 0.0 - 1.0 % | [facility] | | | | | | [facility] | | | | | | [facility] | | | | | | [facility] - | | | | | | LABORATORY | | + + + + + + | Absolute | 3.70 | 1.80 - 8.50 | [facility] | | | Neutrophils | | K/uL | [facility] | | | | | | [facility] | | | | | | C[facility] - | | | | | | LABORATORY | | + + + + + + | Absolute | 2.20 | 0.60 - 3.20 | [facility] | | | Lymphocytes | | K/uL | [facility] | | | | | | [facility] | | | | | | [facility] - | | | | | | LABORATORY | | + + + + + + | Absolute | 0.60 | 0.00 - 1.00 | [facility] | | | Monocytes | | K/uL | [facility] | | | | | | [facility] | | | | | | [facility] - | | | | | | LABORATORY | | + + + + + + | Absolute | 0.40 | 0.00 - 0.40 | [facility] | [...] | Basophils | | K/uL | [facility] | [...] [address] | [place] | [phone] | | [facility] | | [address] | | | - LABORATORY | | | | + + + + + | [facility] | [address] | [place], [place] | | | [facility] | | [address] | | | - LABORATORY | | | | + + + + + POC Glucose (06/03/2014 7:18 AM PDT) + +-------+ + + + | Component | Value | Ref Range | Performed | Pathologist | | | | | At | Signature | + +-------+ + + + | Glucose, | 104 | 79 - 150 mg/dL | [facility] | | | POC | | | [facility] | | [...] | + + + + + | [facility] | [address] | [place] | [phone] | | [facility] | | [address] | | | - LABORATORY | | | | + + + + + | [facility] | [address] | [place] | | | [facility] | | [address] | | | - LABORATORY | | | | + + + + + documented in this encounter Visit Diagnoses + + | Diagnosis | + + | Postmenopausal bleeding | + + documented in this encounter Administered Medications + +--------+ +--------+------+------+ | Medication Order | MAR | Action | Dose | Rate | Site | | | Action | Date | | | | + +--------+ +--------+------+------+ | fentaNYL injection 25-50 mcg | Given | 06/03/20 | 25 mcg | | | | 25-50 mcg, Intravenous, EVERY 5 | | 14 8:53 | | | | | MIN PRN, Pain, Starting Irais | | AM PDT | | | | | 06/03/14 at 0817, Maximum total | | | | | | | dose 100 mcg. PACU IV Narcotic | | | [...] | | | | | | | hydromporphone if morphine | | | | | | | ineffective., Recovery/Phase I | | | | | | + +--------+ +--------+------+------+ +-------+ +--------+---+---+ | Given | 06/03/20 | 25 mcg | | | | | 14 8:49 | | | | | | AM PDT | | | | +-------+ +--------+---+---+ +---+---+ | | | +---+---+ + +-------+ + +---+---+ | HYDROcodone-acetaminophen | Given | 06/03/20 | 1 tablet | | | | (NORCO) 5-325 mg per tablet 1-2 | | 14 9:50 | | | | | tablet 1-2 tablet, Oral, EVERY 4 | | AM PDT | | | | | HOURS PRN, Pain, Starting Irais | | | | | | | 06/03/14 at 0836, MAX 12 tabs/24 | | | | | | | hrs. If ineffective use [place] | | | | | | | 10/325 if ordered. If not | | | | | | | tolerated, use Percocet then | | | | | | | Oxycodone if ordered, | | | | | | | Post-op/Phase II | | | | | | + +-------+ + +---+---+ +---+---+ | | | +---+---+ + +---------+ +---+-------+---+ | lactated ringers (LR) infusion | New Bag | 06/03/20 | | 100 | | | at 10-100 mL/hr, Intravenous, | | 14 7:24 | | mL/hr | | | CONTINUOUS, Starting Irais 06/03/14 | | AM PDT | | | | | at 0715, TKO., Pre-op | | | | | | + +---------+ +---+-------+---+ +---+---+ | | | +---+---+ documented in this encounter
--- OUTSIDE RECORDS SUMMARY | ~2019-10-23 | XMS | Encounter Summary ---
Demographics + + + | Address | [address] | | | [place] [address] | + + + | Home Phone | | + + + | Preferred Language | Unknown | + + + | Marital Status | Single | + + + | Hoahaoism Affiliation | 1077 | + + + | Race | Unknown | + + + | Ethnic Group | Unknown | + + + Author + + + | Author | [facility] | | | and Rainerana | + + + | Organization | [facility] | [...] [place], [place] | | | | | [address] | | + + + + + | Jelena Hill | ECON | [place] | | | | | [address] | | + + + + + Care Team Providers + +------+ + | Care Central Office Operator Supervisor Name | Role | Phone | [...] Description | +--------+---------+ + + + | 08/18/ | Office | [facility] | Hiren Mai PA | KAMERON on CPAP (Primary | | 2018 | Visit | SLEEP DISORDER [address] | [address] | Dx) | | | | [address] [place] | [place] | | | | | [place] [address] | [address] | | | | | [phone] | | | +--------+---------+ + + + [...] + + + | Blood Pressure | 130/90 | 08/18/2018 2:09 PM | | | | | PDT | | + + + + + | Pulse | 110 | 08/18/2018 2:09 PM | | | | | PDT | | + + + + + | Temperature | - | - | | + + + + + | Respiratory Rate | 16 | 08/18/2018 2:09 PM | | | | | PDT | | + + + + + | Oxygen Saturation | 98% | 08/18/2018 2:09 PM | | | | | PDT | | + + + + + | Inhaled Oxygen | - | - | | | Concentration | | | | + + + + + | Weight | 134.1 kg (295 lb | 08/18/2018 2:09 PM | | | | 10.2 oz) | PDT | | + + + + + | Height | - | - | | + + + + + | Body Mass Index | 46.3 | 05/06/2018 10:13 AM | | | | | PDT | | + + + + + documented in this encounter Progress Notes Hiren Mai PA - 08/18/2018 2:00 PM PDT Subjective: Patient ID: Lucie Miller is a 68 y.o. female. HPI last office visit: 05/06/2018 date of polysomnography: 12/25/2017 AHI: 55.2 RDI: 64.1 O2%: 78% with 31.2 minutes below 88% Machine type: ResMed AirSense 10 Mask type: Respironics AmaraView full face mask DME: [facility] [place] pressure: 13-20 cm Median: 13.8 cm 95%: 15.0 cm maximum: 15.4 cm Nights using CPAP: 98/103 % of nights >4 hours: 59% 62% average usage (all nights): 5:00 5:12 average usage (nights used): 5:00 5:28 AHI: 4.6 Lucie comes in for CPAP compliance. She is wearing her CPAP regularly, but has struggled w ith wearing it for the duration of her sleep on some nights. She has worked to improve her sleep schedule, but still struggles with this on some nights. She is doing well with her Re sMed AirSense 10. She feels that it is working much better than her previous machine. I have discussed the download in detail. This shows that her sleep apnea is controlled, wi th an AHI of 4.6. It also shows that her leaks are controlled on most nights. It shows delmi t she is wearing her CPAP >4 hours for 76% of the nights during 30 consecutive nights. At her last appointment we discussed having her: 1. Use your CPAP 100% of the time you are asleep. 2. Keep a consistent wake time and adjust your bed time according to the amount o f sleep you need. 3. If you are not able to get to sleep, go to a dark, quiet room and sit , doing nothing, until you become sleepy. Then to go back to bed with your CPAP. Repeat th is as many times as necessary. 4. Go to bed at 1am and wake at 8am. Adjust these times as needed, but keep them consistent. 5. Do not sleep anytime outside of your set time of sle ep. 6. Be as active as you can during the day. Review of Systems Objective: BP 130/90 | Pulse 110 | Resp 16 | Wt 134.1 kg (295 lb 10.2 oz) | SpO2 98% | BMI 46.30 kg/m Physical Exam Assessment: Problem #1: OBSTRUCTIVE SLEEP APNEA ([id number]) This is controlled with CPAP. She is well with her ResMed AirSense 10. She feels it is wo rking better than her previous machine. She is wearing it regularly, but has some nights th at she struggles with wearing it for the duration of her sleep. She has used her CPAP >4 ho urs for 76% of the nights for 30 consecutive nights. Plan: 1. She is to continue with CPAP indefinitely. 2. I have recommended that she work toward wearing her CPAP 100% of the time she is asleep . I will follow up again in 6 months, sooner prn. Twenty-five minutes were spent face-to-fac e, with the majority of time spent in [...] (pediatric) | + + documented in this encounter"
--- OUTSIDE RECORDS SUMMARY | ~2019-10-23 | XMS | Encounter Summary ---
Demographics + + + | Address | [address] | | | [place] [address] | + + + | Home Phone [...] Author | [facility] | | | and Rainerana | + + + | Organization | [facility] | | [...] [place], [place] | | | | | [address] | | + + + + + | Jelena Hill | ECON | [place] | | | | | [address] | | + + + + + Care Team Providers + +------+ + | Care State Auditor Name | Role | Phone | + [...] + | 10/13/ | Refill | [facility] | [place] | Medication Refill | | 2019 | | [facility] [place] | Rishabh, JUSTYN [address] | | | | | [address] | [place] | | | | | [place] | [address] | | | | | [address] | | | | | | [phone] | | | +--------+--------+ + + + [...] [place] | | | | | | [address] | | | | | | | | +--------+---------+ + + + documented as of this encounter Visit Diagnoses Not on filedocumented in this encounter"
--- OUTSIDE RECORDS SUMMARY | ~2019-10-23 | XMS | Encounter Summary ---
Demographics + + + | Address | [address] | | | [place] [address] | + + + | Home Phone | | + + + | Preferred Language | Unknown | + + + | Marital Status | Single | + + + | Judaism Affiliation | 1077 | + + + | Race | Unknown | + + + | Ethnic Group | Unknown | + + + Author + + + | Author | [facility] | | | and Rainerana | + + + | Organization | [facility] | | | and Rainerana [...] [place], [place] | | | | | [address] | | + + + + + | Jelena Hill | ECON | [place], [place] | | | | | [address] | | + + + + + Care Team Providers + +------+ + | Care Junior Automation Engineer Name | Role | Phone | + +------+ + | Ivy Sun | PCP | | + +------+ + Reason for Visit + + + | Reason | Comments | + + + | Annual Exam | | + + + Encounter Details +--------+---------+ + + + | Date | Type | Department | Care Team | Description | +--------+---------+ + + + | 05/06/ | Office | [facility] | Ivy Sun | Routine general | | 2014 | Visit | [facility] [place] | JUSTYN Keating [address] | medical examination | | | | [address] | [place], [place] | at a health care | | | | [place], [place] | [address] | facility (Primary | | | | [address] | | Dx); Laboratory | | | | [phone] | | examination ordered | | | | | | as part of a routine | | | | | | general medical | | | | | | examination; | | | | | | Leukocytes in urine; | | | | | | Abnormal thyroid | | | | | | blood test | +--------+---------+ + + + Social History [...] + + + | Blood Pressure | 90/64 | 05/06/2014 10:42 AM | | | | | PDT | | + + + + + | Pulse | 112 | 05/06/2014 10:42 AM | | | | | PDT | | + + + + + | Temperature | 36.1 C (97 F) | 05/06/2014 10:42 AM | | | | | PDT | | + + + + + | Respiratory Rate | 16 | 05/06/2014 10:42 AM | | | | | PDT | | + + + + + | Oxygen Saturation | 96% | 05/06/2014 10:42 AM | | | | | PDT | | + + + + + | Inhaled Oxygen | - | - | | | Concentration | | | | + + + + + | Weight | 118.8 kg (262 lb) | 05/06/2014 10:42 AM | | | | | PDT | | + + + + + | Height | 170.2 cm (5' 7") | 05/06/2014 10:42 AM | | | | | PDT | | + + + + + | Body Mass Index | 41.04 | 05/06/2014 10:42 AM | | | | | PDT | | + + + + + documented in this encounter Progress Notes Ivy Sun ARNP - 05/06/2014 11:06 AM PDTFormatting of this note might be differen t from the original. Subjective: Lucie Miller is a 63 y.o. female patient of Ivy Sun. Chief Complaint: Annual Exam Had pap smear yesterday with [facility]. Was seen there for postmenopausal bleeding. Joe l be having endometrial biopsy Needs the rest of her physical done today. Mammogram UTD. Colonoscopy UTD. Denies changes in bowel or bladder habits Recently had labs and TSH 4.99. Needs to have rechecked in 2 months and will need orders. D enies unusual fatigue. Has vitamin D deficiency. Level checked April 06 and low. Not currently taking vitamin d or calcium supplements Has hx of recurrent UTI. Denies urinary symptoms. Urine dip today shows leukocytes, protein and trace bilirubin. No fevers, chills, abdominal pain or back pain. No Known Allergies Medications: She has a [...] (12/14/2013); Aortic r oot enlargement (HCC) (01/13/2014); and Prediabetes (12/09/2013). Past Surgical History She has past surgical [...] items are noted in HPI. Objective: BP 90/64 | Pulse 112 | Temp 36.1 C (97 F) (Temporal) | Resp 16 | Ht 1.702 m (5' 7") | W t 118.842 kg (262 lb) | BMI 41.03 kg/m2 | SpO2 96% | ? No General Appearance: Alert, cooperative, no distress, appears stated age Head: Normocephalic, without obvious abnormality, atraumatic Eyes: PERRL, conjunctiva/corneas clear Ears: Normal TM's and external ear canals, and [place], wears hearing aids Nose: Nares normal Throat: Lips, mucosa, and tongue normal; teeth and gums normal, .clpoh Neck: Supple, symmetrical, no adenopathy, thyroid: not enlarged, symmetric, no tenderness/m ass/nodules, no carotid bruit or JVD Lungs: Clear to auscultation bilaterally, respirations unlabored Heart: Breast: Regular rate and rhythm, S1, S2 normal, no murmur, rub or gallop Symmetrical. No skin changes overlying breast, no Dimpling, retractions, nipple discharge, masses or lumps. No axillary or supraclavicular lymphadenopathy. Abdomen: Soft, obese, non-tender, normal bowel sounds, no masses, no organomegaly, exam somewhat limited due to body habitus. Extremities: Extremities normal, atraumatic, no cyanosis or edema Skin: [place],warm and dry Neurologic: Alert and oriented. . Balance and gait normal. Results for orders placed in visit on 05/06/14 [facility] EXTERNAL IMAGE Component Value Range EXT MAMMOGRAPHY 1-Negative Assessment and Plans: Lucie was seen today for annual exam. Diagnoses and associated orders for this visit: Routine general medical examination at a health care facility Healthy habits discussed , including regular breast exams, proper calcium intake, exercise. Follow-up one year for next exam. Abnormal thyroid blood test Will check TSH and free T4 in June as well as TSH. If still at this range or higher, w ill likely start synthroid. - T4, Free; Future - T3, Free; Future Vitamin D deficiency: discussed importance of taking vitamin D 2000 iu daily and calcium 60 0mg twice daily. Recheck 12 weeks. Abnormal thyroid blood test Will check TSH and free T4 in June as well as TSH. If still at this range or higher, w ill likely start synthroid. - T4, Free; Future - T3, Free; Future Laboratory examination ordered as part of a routine general medical examination - POCT Urinalysis Dipstick Automated Leukocytes in urine - Culture, Urine; Future Other Orders - [facility] External Image 25 minute visit > 50% counseling regarding condition, options for treatment, and possible risks. Care instructions and warning signs were discussed. Medications per orders. Side effects discussed. Labs and investigations per orders. Recheck 2 months prediabtes and hypertension. Sooner prn. This note was dictated using Net[employer] voice recognition software. Every attempt was made for accuracy, but grammatical errors may exist. If there are questions regarding this, please co ntact provider. Alessandro gonzalez RN - 05/06/2014 10:45 AM PDTEndometrial Biopsy planned for 06/03/[address] Gay bryant. documented in thi s encounter Plan of [...] [place] | | | | | | [address] | | | | | | | | +--------+---------+ + + + + +------+--------+ + + | Name | Type | Priori | Associated Diagnoses | Order Schedule | | | | ty | | | + +------+--------+ + + | T4, Free | Lab | Routin | Abnormal thyroid | 1 Occurrences | | | | e | blood test | starting 05/06/2014 | | | | | | until 05/06/2015 | + +------+--------+ + + | T3, Free | Lab | Routin | Abnormal thyroid | 1 Occurrences | | | | e | blood test | starting 05/06/2014 | | | | | | until 05/06/2015 | + +------+--------+ + + documented as of this encounter Procedures + +--------+ + + + | Procedure Name | Priori | Date/Time | Associated Diagnosis | Comments | | | ty | | | | + +--------+ + + + | CULTURE, URINE | Routin | 05/06/2014 | Leukocytes in | Results for this | | | e | 11:25 AM | urine | procedure are in the | | | | PDT | | results section. | + +--------+ + + + | POCT URINALYSIS, | Routin | 05/06/2014 | Laboratory | Results for this | | AUTO WITH CONF | e | 10:53 AM | examination ordered | procedure are in the | | | | PDT | as part of a routine | results section. | | | | | general medical | | | | | | examination | | + +--------+ + + + | ANGEL[facility] EXTERNAL IMAGE | Routin | 10/20/2013 | | Results for this | | | e | | | procedure are in the | | | | | | results section. | + +--------+ + + + documented in this encounter Results Culture, Urine (05/06/2014 11:25 AM PDT) + + + + + + | Component | Value | Ref Range | Performed | Pathologist | | | | | At | Signature | + + + + + + | Culture | 50,000 CFU/ml Mixed | | [facility] | | | | january (multiple | | [facility] | | | | morphologies | | MEDICAL | | | | present)Comment: | | CENTER - | | | | Suggests contamination | | LABORATORY | | | | with urogenital or skin | | | | | | january. | | | | + + + + + + + + | Specimen | + + | Urine - Urine | | specimen obtained by | | clean catch | | procedure (specimen) | + + + + + + + | Performing | Address | City/State/Zipcode | Phone Number | | Organization | | | | + + + + + | [facility] | [address] | [place] | [phone] | | [facility] | | [address] | | | - LABORATORY | | | | + + + + + | [facility] | [address] | [place], [place] | | | [facility] | | [address] | | | - LABORATORY | | | | + + + + + POCT Urinalysis Dipstick Automated (05/06/2014 10:53 AM PDT) + + + + + + | Component | Value | Ref Range | Performed | Pathologist | | | | | At | Signature | + + + + + + | Color, UA, | Yellow | | | | | POC | | | | | + + + + + + | Clarity, | Clear | | | | | UA, POC | | | | | + + + + + + | Glucose, | Negative | | | | | UA, POC | | | | | + + + + + + | Bilirubin, | 1+ | | | | | UA, POC | | | | | + + + + + + | Ketones, | Negative | Negative | | | | UA, POC | | | | | + + + + + + | Specific | 1.030 | | | | | [place], | | | | | | UA, POC | | | | | + + + + + + | Blood, UA, | Negative | | | | | POC | | | | | + + + + + + | pH, UA, POC | 6.0 | | | | + + + + + + | Protein, | Trace | | | | | UA, POC | | | | | + + + + + + | Urobilinoge | 0.2 E.U./dL | | | | | n, UA, POC | | | | | + + + + + + | Nitrite, | Negative | | | | | UA, POC | | | | | + + + + + + | Leukocyte | Trace | | | | | Esterase, | | | | | | UA, POC | | | | | + + + + + + | Reducing | | | | | | Substances, | | | | | | Urine | | | | | + + + + + + | Ictotest | | Negative | | | + + + + + + | Remark | | | | | + + + + + + + + | Specimen | + + | Urine specimen | | (specimen) | + + AN[facility] External Image (10/20/2013) + + + + + + | [...] + | Diagnosis | + + | Routine general medical examination at a health care facility - Primary | + + | Laboratory examination ordered as part of a routine general medical examination | + + | Leukocytes in urine Other nonspecific finding on examination of urine | + + | Abnormal thyroid blood test Nonspecific abnormal results of thyroid function study | + + documented in this encounter
--- OUTSIDE RECORDS SUMMARY | ~2019-10-23 | XMS | Encounter Summary ---
Demographics + + + | Address | [address] | | | [place] [address] | + + + | Home Phone | | + + + | Preferred Language | Unknown | + + + | Marital Status | Single | + + + | Sabianist Affiliation | 1077 | + + + | Race | Unknown | + + + | Ethnic Group | Unknown | + + + Author + + + | Author | [facility] | | | and Rainerana | + + + | Organization | [facility] [...] [place], [place] | | | | | [address] | | + + + + + | Jelena Hill | ECON | [place] | | | | | [address] | | + + + + + Care Team Providers + +------+ + | Care Field Service Tech Name | Role | Phone | + +------+ + | Ivy Sun | PCP | | + +------+ + Encounter Details +--------+ + + + + | Date | Type | Department | Care Team | Description | +--------+ + + + + | 08/28/ | Orders Only | [facility] | Ivy Sun | Urinary tract | | 2016 | | [facility] | L, SQL PROGRAMMER [address] | infection without | | | | [address] | [place] | hematuria, site | | | | [place], [place] | [address] | unspecified | | | | [address] | | | | | | [phone] | | | +--------+ + + + [...] | | | | | | [place] | | | | | | [address] | | | | | | | | +--------+---------+ + + + documented as of this encounter Procedures + +--------+ + + + | Procedure Name | Priori | Date/Time | Associated Diagnosis | Comments | | | ty | | | | + +--------+ + + + | CULTURE, URINE | Add-On | 08/28/2016 | Urinary tract | Results for this | | | | 11:45 AM | infection without | procedure are in the | | | | PDT | hematuria, site | results section. | | | | | unspecified | | + +--------+ + + + documented in this encounter Results Culture, Urine (08/28/2016 11:45 AM PDT) + + + + + + | Component | Value | Ref Range | Performed | Pathologist | | | | | At | Signature | + + + + + + | Culture | 10,000 CFU/ml | | [facility] | | | | Escherichia coli | | [facility] | | | | | | MEDICAL | | | | | | CENTER - | | | | | | LABORATORY | | + + + + + + | Culture | >100,000 CFU/ml Beta | | [facility] | | | | Hemolytic Streptococci, | | [facility] | | | | Group BComment: Group B | | MEDICAL | | | | beta hemolytic | | CENTER - | | | | streptococci is usually | | LABORATORY | | | | sensitive to | | | | | | amoxicillin, cefazolin | | | | | | and cephalexin. Usually | | | | | | resistant to | | | | | | trimeth/sulfa, | | | | | | ciprofloxacin and | | | | | | levofloxacin. | | | | + + + + + + + + | Specimen | + + | Urine - Spot urine | | sample (specimen) | + + + + +--------+ + | Organism | Antibiotic | Method | Susceptibility | + + +--------+ + | Escherichia coli | Ampicillin | | 8: Sensitive | + + +--------+ + | Escherichia coli | Ampicillin + | | 4: Sensitive | | | Sulbactam | | | + + +--------+ + | Escherichia coli | Cefazolin | | <=4: Sensitive | + + +--------+ + | Escherichia coli | Cefoxitin | | <=4: Sensitive | + + +--------+ + | Escherichia coli | Ceftazidime | | <=1: Sensitive | + + +--------+ + | Escherichia coli | Ceftriaxone | | <=1: Sensitive | + + +--------+ + | Escherichia coli | Ciprofloxacin | | <=0.25: Sensitive | + + +--------+ + | Escherichia coli | Ertapenem | | <=0.5: Sensitive | + + +--------+ + | Escherichia coli | Gentamicin | | <=1: Sensitive | + + +--------+ + | Escherichia coli | Meropenem | | <=0.25: Sensitive | + + +--------+ + | Escherichia coli | Nitrofurantoin | | <=16: Sensitive | + + +--------+ + | Escherichia coli | Tobramycin | | <=1: Sensitive | + + +--------+ + | Escherichia coli | Trimethoprim + | | <=20: Sensitive | | | Sulfamethoxazole | | | + + +--------+ + + + + + + | Performing | Address | City/State/Zipcode | Phone Number | | Organization | | | | + + + + + | [facility] | [address] | [place] | [phone] | | [facility] | | [address] | | | - LABORATORY | | | | + + + + + documented in this encounter Visit Diagnoses + + | Diagnosis | + + | Urinary tract infection without hematuria, site unspecified | + + documented in this encounter"
--- OUTSIDE RECORDS SUMMARY | ~2019-10-23 | XMS | Encounter Summary ---
Demographics + + + | Address | [address] | | | [place] [address] | + + + | Home Phone [...] Author | [facility] | | | and Rainerana | + + + | Organization | [facility] | | | [...] [place], [place] | | | | | [address] | | + + + + + | Jelena Hill | ECON | [place] | | | | | [address] | | + + + + + Care Team Providers + +------+ + | Care Senior Biostatistician Name | Role | Phone | + +------+ + | Ivy Sun | PCP | | + +------+ + Reason for Visit + + + | Reason | Comments | + + + | Diabetes | | + + + Encounter Details +--------+ + + + + | Date | Type | Department | Care Team | Description | +--------+ + + + + | 01/18/ | Telephone | [facility] | Ivy Sun | Diabetes | | 2013 | | [facility] [place] | JUSTYN Keating [address] | | | | | [address] | [place], [place] | | | | | [place], [place] | [address] | | | | | [address] | | | | | | [phone] | | | +--------+ + + + [...]
--- OUTSIDE RECORDS SUMMARY | ~2019-10-23 | XMS | Encounter Summary ---
Demographics + + + | Address | [address] | | | [place] [address] | + + + | Home Phone [...] + + + | Author | [facility] | | | and Rainerana | + + + | Organization | [facility] | | | and Rainerana [...] [place], [place] | | | | | [address] | | + + + + + | Jelena Hill | ECON | [place], [place] | | | | | [address] | | + + + + + Care Team Providers + +------+ + | Care Counter Control Operator Name | Role | Phone | [...] + + | 04/03/ | Telephone | [facility] | Ivy Sun | NGUYEN | | 2016 | | MEDICINE [address] | Rishabh, JUSTYN [address] | | | | | [address] [facility] | [place], [place] | | | | | [place] [address] | [address] | | | | | [phone] | | | +--------+ + + + [...] [place] | | | | | | [address] | | | | | | | [...] + | [facility] | [address] | [place] | [phone] | | [facility] | | [address] | | | - LABORATORY | | [...] - 1.030 | [facility] | | | [place] | | | [facility] | | [...] [address] | [place] | [phone] | | [facility] | | [address] | | | - LABORATORY | | [...] [address] | [place] | [phone] | | [facility] | | [address] | | | - LABORATORY | | [...] mL/min/1.73m2 | [facility] | | | [facility] | RATE,ESTIMATED | | MEDICAL | | | | mL/min/1.27v6Rwpm than | | CENTER - | | [...] + | [facility] | [address] | [place] | [phone] | | [facility] | | [address] | | | - LABORATORY | | [...] ST. | [address] | [place] | [phone] | | [facility] | | [address] | | | - LABORATORY | | [...]
--- OUTSIDE RECORDS SUMMARY | ~2019-10-23 | XMS | Encounter Summary ---
Demographics + + + | Address | [address] | | | [place] [address] | + + + | Home Phone | | + + + | Preferred Language | Unknown | + + + | Marital Status | Single | + + + | Shinto Affiliation | 1077 | + + + | Race | Unknown | + + + | Ethnic Group | Unknown | + + + Author + + + | Author | [facility] | | | and Rainerana | + + + | Organization | [facility] | | | and Rainerana [...] [place], [place] | | | | | [address] | | + + + + + | Jelena Hill | ECON | [place], [place] | | | | | [address] | | + + + + + Care Team Providers + +------+ + | Care Aquaculture Farmer Name | Role | Phone | + [...] + + | 11/21/ | Telephone | [facility] | Logan Wolf | Appointment (1 yr | | 2015 | | CARDIOLOGY [address] | MD Missael [address] | fup due in January) | | | | [place], | [address] [place] | | | | | [place] [address] | [place] [address] | | | | | [phone] | [phone] | | | | | | | [...] [address] | | | | | | [place] | | | | | | [address] | | | | | | | | +--------+---------+ + + + documented as of this encounter Visit Diagnoses Not on filedocumented in this encounter"
--- OUTSIDE RECORDS SUMMARY | ~2019-10-23 | XMS | Encounter Summary ---
Demographics + + + | Address | [address] | | | [place] [address] | + + + | Home Phone | | + + + | Preferred Language | Unknown | + + + | Marital Status | Single | + + + | Latter Day Affiliation | 1077 | + + + | Race | Unknown | + + + | Ethnic Group | Unknown | + + + Author + + + | Author | [facility] | | | and Rainerana | + + + | Organization | [facility] | | | [...] [place], [place] | | | | | [address] | | + + + + + | Jelena Hill | ECON | [place] | | | | | [address] | | + + + + + Care Team Providers + +------+ + | Care Muck Miner Blasting Name | Role | Phone | + [...] Description | +--------+--------+ + + + | 07/28/ | Refill | [facility] | Ivy Sun | Medication Refill | | 2013 | | [place]IC[place] | Rishabh, JUSTYN [address] | | | | | [address] | [place], [place] | | | | | [place], [place] | [address] | | | | | [address] | | | | | | [phone] | | | +--------+--------+ + + + [...] [place] | | | | | | [address] | | | | | | | | +--------+---------+ + + + documented as of this encounter Visit Diagnoses Not on filedocumented in this encounter"
--- OUTSIDE RECORDS SUMMARY | ~2019-10-23 | XMS | Encounter Summary ---
Demographics + + + | Address | [address] | | | [place] [address] | + + + | Home Phone | | + + + | Preferred Language | Unknown | + + + | Marital Status | Single | + + + | Anabaptist Affiliation | 1077 | + + + | Race | Unknown | + + + | Ethnic Group | Unknown | + + + Author + + + | Author | [facility] | | | and Rainerana | + + + | Organization | [facility] | | | and [...] [place], [place] | | | | | [address] | | + + + + + | Jelena Hill | ECON | [place] | | | | | [address] | | + + + + + Care Team Providers + +------+ + | Care Jackaroo Name | Role | Phone | + +------+ + | Ivy Sun | PCP | | + +------+ + Encounter Details +--------+ + + + + | Date | Type | Department | Care Team | Description | +--------+ + + + + | 10/09/ | Hospital | [facility] | Eleazar Mustafa | | | 2018 | Encounter | MED CTR OR INTRA OP | DO Liliana [address] | | | | | [address] | [address] [facility] | | | | | [place], [place] | [place] [address] | | | | | [address] | [phone] | | | | | [phone] | | | +--------+ + + + [...] 0 | | | | (VITAMIN D3) [address] | mouth Once a week. | | [...] | 90 | 0 | 02/29/20 | 04/03/201 | | (GLUCOPHAGE) 500 mg | MOUTH [...] [place] | | | | | | [address] | | | | | | | | +--------+---------+ + + + documented as of this encounter Visit Diagnoses Not on filedocumented in this encounter"
--- OUTSIDE RECORDS SUMMARY | ~2019-10-23 | XMS | Encounter Summary ---
Demographics + + + | Address | [address] | | | [place] [address] | + + + | Home Phone | | + + + | Preferred Language | Unknown | + + + | Marital Status | Single | + + + | Hinduism Affiliation | 1077 | + + + | Race | Unknown | + + + | Ethnic Group | Unknown | + + + Author + + + | Author | [facility] | | | and Rainerana | + + + | Organization | [facility] | [...] [place], [place] | | | | | [address] | | + + + + + | Jelena Hill | ECON | [place] | | | | | [address] | | + + + + + Care Team Providers + +------+ + | Care Clinical Statistical Programmer Name | Role | Phone | + [...] Medicine | Restless | Reymundo Allen | [place] [address] | | | Required | | legs | MD [address] | [place] | | | | | syndrome | [place] | [place], | | | | | [place] | St [facility] | [place] [address] | | | | | (obstructive | [facility], [place] | Phone: | | | | | sleep | [address] | [phone] | | | | | apnea) | Phone: | Fax: | | | | | Procedures | [phone] | [phone] | | | | | HI POLYSOM | Fax: | | | | | | 6/>YRS SLEEP | [phone] | | | | | | W/CPAP 4/> | | | | | | | ADDL ANNA | | | | | | | ATTND HI | | | | | | | [...] + + | 02/09/ | Hospital | [facility] | Reymundo Guillory | Obstructive sleep | | 2018 - | Encounter | MED CTR SLEEP | MD [address] | apnea; Restless legs | | | | CENTER [address] | [address] [place] | syndrome | | 02/10/ | | [place] | [place] [address] | | | 2018 | | [address] | [phone] | | | | | [phone] | | | +--------+ + + + [...] 0 | | | | (VITAMIN D3) [address] | mouth Once a week. | | [...] [place] | | | | | | [address] | | | | | | | [...] [facility] | | | [place] [address] | | | Positive Airway Pressure Titration [...] | | | Reymundo Guillory Jr., MD, [facility] FACILITYSMMedical DirectorBrighton Hospitalrut | | | [facility] CenterPro[facility] | | | [place] DoClinical Statistical Reporting Analyst of MedicineRiverton Hospital | | | [place], [place] | | |change in response to [...] | | | |Reymundo Guillory Jr., MD, [facility] | | |Infrastructure Analyst | | |[facility] | | |[facility] | | |[place] | | |Clinical truck crane operator | | |[facility] | | |[place], [place] | | + + + + + | Procedure Note | + + | Reymundo Guillory Jr., MD - 02/22/2018 12:07 PM PDT [facility] | | Disorders [place], [place] [address]Rtrfpipj Airway Pressure | | Titration Report on Lucie Miller performed on February 09, 2018.Clinical Information: | | Lucie Miller is a 67 y.o. female [...] advised.Reymundo | | Carter Guillory Jr., MD, [facility]TMedical DirectorBrighton HospitalrutSt [facility] | | [facility] Healthinical Statistical Reporting Analyst of | | [place], [place] | |Clinical truck crane operator | |[facility] | |[place], [place] | + + documented in this encounter Visit Diagnoses + + | Diagnosis | + + | Obstructive sleep apnea Obstructive sleep apnea (adult) (pediatric) | + + | Restless legs syndrome Restless legs syndrome (RLS) | + + documented in this encounter
--- OUTSIDE RECORDS SUMMARY | ~2019-10-23 | XMS | Encounter Summary ---
Demographics + + + | Address | [address] | | | [place] [address] | + + + | Home Phone | | + + + | Preferred Language | Unknown | + + + | Marital Status | Single | + + + | Church Affiliation | 1077 | + + + | Race | Unknown | + + + | Ethnic Group | Unknown | + + + Author + + + | Author | [facility] | | | and Rainerana | + + + | Organization | [facility] | | [...] [place], [place] | | | | | [address] | | + + + + + | Jelena Hill | ECON | [place] | | | | | [address] | | + + + + + Care Team Providers + +------+ + | Care Dairy Processing Equipment Operator Name | Role | Phone | + +------+ + | Ivy Sun | PCP | | + +------+ + Encounter Details +--------+ + + + + | Date | Type | Department | Care Team | Description | +--------+ + + + + | 08/30/ | Abstract | [facility] [place] | Calderon Shaw, | | | 2015 | | NEUROSURGERY [address] | PA-C [address] | | | | | [address] | [address] [place] | | | | | [place], [place] | [place] [address] | | | | | [address] | [phone] | | | | | [phone] | | | +--------+ + + + [...] [place] | | | | | | [id number] | | | | | | | | +--------+---------+ + + + documented as of this encounter Visit Diagnoses Not on filedocumented in this encounter"
--- OUTSIDE RECORDS SUMMARY | ~2019-10-23 | XMS | Encounter Summary ---
Demographics + + + | Address | [address] | | | [place] [address] | + + + | Home Phone | | + + + | Preferred Language | Unknown | + + + | Marital Status | Single | + + + | Methodist Affiliation | 1077 | + + + | Race | Unknown | + + + | Ethnic Group | Unknown | + + + Author + + + | Author | [facility] | | | and Rainerana | + + + | Organization | [facility] | | | and Rainerana [...] [place], [place] | | | | | [address] | | + + + + + | Jelena Hill | ECON | [place] | | | | | [address] | | + + + + + Care Team Providers + +------+ + | Care Reptile Keeper Name | Role | Phone | + [...] | +--------+ + + + + | 02/27/ | Telephone | [facility] | Ivy Sun | Appointment | | 2015 | | MEDICINE [place] | [place] [address] | | | | | [address] | [place] | | | | | [place] | [address] | | | | | [address] | | | | | | [phone] | | | +--------+ + + + [...] [place] | | | | | | [id number] | | | | | | | | +--------+---------+ + + + documented as of this encounter Visit Diagnoses Not on filedocumented in this encounter"
--- OUTSIDE RECORDS SUMMARY | ~2019-10-23 | XMS | Encounter Summary ---
Demographics + + + | Address | [address] | | | [place] [address] | + + + | Home Phone | | + + + | Preferred Language | Unknown | + + + | Marital Status | Single | + + + | Tenriism Affiliation | 1077 | + + + | Race | Unknown | + + + | Ethnic Group | Unknown | + + + Author + + + | Author | [facility] | | | and Rainerana | + + + | Organization | [facility] | | | and Rainerana | [...] [place], [place] | | | | | [address] | | + + + + + | Jelena Hill | ECON | [place], [place] | | | | | [address] | | + + + + + Care Team Providers + +------+ + | Care Director Mobile Name | Role | Phone | + [...] | +--------+ + + + + | 01/07/ | Telephone | [facility] | Ivy Sun | Dizziness; Nausea | | 2017 | | [facility] | [place] | | | | | [address] | [place], [place] | | | | | [place], [place] | [address] | | | | | [address] | | | | | | [phone] | | | +--------+ + + + [...]
--- OUTSIDE RECORDS SUMMARY | ~2019-10-23 | XMS | Encounter Summary ---
Demographics + + + | Address | [address] | | | [place] [address] | + + + | Home Phone [...] + | Author | [facility] | | | and Rainerana | + + + | Organization | [facility] | | | and Rainerana [...] [place], [place] | | | | | [address] | | + + + + + | Jelena Hill | ECON | [place], [place] | | | | | [address] | | + + + + + Care Team Providers + +------+ + | Care Chartered Financial Analyst Name | Role | Phone | + +------+ + | Ivy Sun | PCP | | + +------+ + Reason for Visit +--------+ + | Reason | Comments | +--------+ + | LABS | | +--------+ + Encounter Details +--------+ + + + + | Date | Type | Department | Care Team | Description | +--------+ + + + + | 10/01/ | Telephone | [facility] | Ivy Sun | LABS | | 2018 | | MEDICINE [place] | [place] [address] | | | | | [address] | [place], [place] | | | | | [place], [place] | [address] | | | | | [address] | | | | | | [phone] | | | +--------+ + + + [...] [place] | | | | | | [address] | | | | | | | | +--------+---------+ + + + documented as of this encounter Visit Diagnoses Not on filedocumented in this encounter"
--- OUTSIDE RECORDS SUMMARY | ~2019-10-23 | XMS | Encounter Summary ---
Demographics + + + | Address | [address] | | | [place] [address] | + + + | Home Phone [...] + + + | Author | [facility] | | | and Rainerana | + + + | Organization | [facility] | | | and Rainerana [...] [place], [place] | | | | | [address] | | + + + + + | Jelena Hill | ECON | [place], [place] | | | | | [address] | | + + + + + Care Team Providers + +------+ + | Care Wick And Base Assembler Name | Role | Phone | + +------+ + PCP | Unavailable | + +------+ + Encounter Details +--------+ + + + + | Date | Type | Department | Care Team | Description | +--------+ + + + + | 04/01/ | Hospital | [facility] | | | | 1991 | Encounter | MED CTR LABORATORY | | | | | | [address] | | | | | | [place] | | | | | | [address] | | | | | | [phone] | | | +--------+ + + + [...] [place] | | | | | | [id number] | | | | | | | | +--------+---------+ + + + documented as of this encounter Visit Diagnoses Not on filedocumented in this encounter"
--- OUTSIDE RECORDS SUMMARY | ~2019-10-23 | XMS | Encounter Summary ---
Demographics + + + | Address | [address] | | | [place] [address] | + + + | Home Phone | | + + + | Preferred Language | Unknown | + + + | Marital Status | Single | + + + | Yarsani Affiliation | 1077 | + + + | Race | Unknown | + + + | Ethnic Group | Unknown | + + + Author + + + | Author | [facility] | | | and Rainerana | + + + | Organization | [facility] | | | and [...] [place], [place] | | | | | [address] | | + + + + + | Jelena Hill | ECON | [place] | | | | | [address] | | + + + + + Care Team Providers + +------+ + | Care Dielectric Machine Operator Name | Role | Phone | + +------+ + | Ivy Sun | PCP | | + +------+ + Reason for Visit +--------+ + | Reason | Comments | +--------+ + | Other | | +--------+ + Encounter Details +--------+---------+ + + + | Date | Type | Department | Care Team | Description | +--------+---------+ + + + | 08/25/ | Office | [facility] [place] [facility] | Hiren Mai PA | [place] on CPAP (Primary | | 2011 | Visit | SLEEP DISORDER [address] | Dx) | | | | [address] [place] | [place] | | | | | [place] [address] | [address] | | | | | [phone] | | | +--------+---------+ + + + [...] + + + | Blood Pressure | 106/66 | 08/25/2012 1:11 PM | | | | | PDT | | + + + + + | Pulse | 110 | 08/25/2012 1:11 PM | | | | | PDT | | + + + + + | Temperature | - | - | | + + + + + | Respiratory Rate | 16 | 08/25/2012 1:11 PM | | | | | PDT | | + + + + + | Oxygen Saturation | - | - | | + + + + + | Inhaled Oxygen | - | - | | | Concentration | | | | + + + + + | Weight | 122.3 kg (269 lb 9.6 | 08/25/2012 1:11 PM | | | | oz) | PDT | | + + + + + | Height | - | - | | + + + + + | Body Mass Index | 42.23 | 08/11/2012 8:10 AM | | | | | PDT | | + + + + + documented in this encounter Progress Notes Hiren Mai PA - 08/25/2012 1:11 PM PDT Subjective: Patient ID: Lucie Miller is a 62 y.o. female. HPI last office visit was: 08/18/2012 date of polysomnography: 07/08/2012 AHI: 13.5 RDI: 21.8 O2%: 88% with 1.2 minutes below 88% Machine type: ResMed S9 with nasal pillows obtained from: [facility] [place] pressure is: 5-14 cm 95%: 10.7 cm maxium: 11.6 cm CPAP download shows CPAP useage # nights: 11/29 average usage (all nights): 4:02 average usage (nights used): 4:02 Lucie had improved her CPAP compliance considerably since changing to a full face mask. I had recommended that she get a ResMed Quattro FX full face mask, but they gave her a ResMed Mirage Quattro. This is better that the nasal pillows, but does not appear to be as good as what I feel the FX would be for her. The nasal pillows did not allow her to breathe through her mouth and caused a claustrophobic feeling. She and her noticed a significant l eak from the mask around her nose. She was not able to correct this leak. After looking at the mask, I was able to find that the cushion for the mask was not snapped into place des sharma on both sides. She also says that her mask has bothered her around her nose. It feels that it is too tigh t for her and has caused her cheeks to start to feel numb at times. She was not aware of th e dial that will change the angle of the mask and potentially take some of the pressure off that portion of her cheeks. She now knows how to adjust it. I have discussed the download in detail. This shows that her sleep apnea is not completely controlled, with an AHI of 8.5. This is likely from the severe leaks and should improve af ter the leaks are corrected. It confirms that her leaks were severe each night. Review of Systems Objective: Physical Exam Assessment: This is somewhat controlled with CPAP. She has severe leaks, but her mask has been fixed. Plan: She is to continue with CPAP indefinitely. I have recommended that she use her mask tonight and if the leaks are not corrected and it is not comfortable for her that she go back to [facility] in [place] to get a ResMed Quattro FX full face mask. I will follow up again in 1 month, sooner prn. Thirty minutes were spent [id number], with the majority of time spent in [...] [place] | | | | | | [address] | | | | | | | | +--------+---------+ + + + documented as of this encounter Visit Diagnoses + + | Diagnosis | + + | KAMERON on CPAP - Primary Obstructive sleep apnea (adult) (pediatric) | + + documented in this encounter"
--- OUTSIDE RECORDS SUMMARY | ~2019-10-23 | XMS | Encounter Summary ---
Demographics + + + | Address | [address] | | | [place] [address] | + + + | Home Phone [...] | Author | [facility] | | | and Rainerana | + + + | Organization | [facility] | [...] [place], [place] | | | | | [address] | | + + + + + | Jelena Hill | ECON | [place], [place] | | | | | [address] | | + + + + + Care Team Providers + +------+ + | Care Collar Baster Jumpbasting Name | Role | Phone | + [...] + + | 01/30/ | Telephone | [facility] | Logan Wolf | Appointment (cancel | | 2015 | | CARDIOLOGY [address] | MD Missael [address] | appt on 02-01-16) | | | | [place], | [address] [place] | | | | | [place] [address] | [place] [address] | | | | | [phone] | [phone] | | | | | | | [...] [place] | | | | | | [address] | | | | | | | | +--------+---------+ + + + documented as of this encounter Visit Diagnoses Not on filedocumented in this encounter"
--- OUTSIDE RECORDS SUMMARY | ~2019-10-23 | XMS | Encounter Summary ---
Demographics + + + | Address | [address] | | | [place] [address] | + + + | Home Phone [...] | Author | [facility] | | | and Rainerana | + + + | Organization | 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 May | capsule | | 13 | 4 [...] + + | zolpidem (AMBIEN) | Take 1 tablet by | 30 | 0 | 09/28/20 | | | 5 mg | mouth nightly as | tablet | | 13 | 4 | | tabletIndications: | needed for Sleep. [...] [place] | | | | | | [id number] | | | | | | | | +--------+---------+ + + + documented as of this encounter Procedures + +--------+ + + + | Procedure Name | Priori | Date/Time | Associated Diagnosis | Comments | | | ty | | | | + +--------+ + + + | CULTURE, URINE, | Routin | 10/14/2013 | | Results for this | | SMEAR | e | 10:22 AM | | procedure are in the | | | | PST | | results section. | + +--------+ + + + | URINALYSIS WITH | Routin | 10/14/2013 | | Results for this | | MICROSCOPIC IF | e | 9:35 AM | | procedure are in the | | INDICATED | | PST | | results section. | + +--------+ + + + | URINALYSIS WITH | Routin | 10/14/2013 | HYPERTENSION, | Results for this | | MICROSCOPIC IF | e | 9:35 AM | CONTROLLED | procedure are in the | | INDICATED | | PST | | results section. | + +--------+ + + + | UA, MICROSCOPIC, | Routin | 10/14/2013 | | Results for this | | REFLEX | e | 9:35 AM | | procedure are in the | | | | PST | | results section. | + +--------+ + + + | UA, MICROSCOPIC, | Routin | 10/14/2013 | | Results for this | | REFLEX | e | 9:35 AM | | procedure are in the | | | | PST | | results section. | + +--------+ + + + | MICROALBUMIN/CREATIN | Routin | 10/14/2013 | | Results for this | | INE RATIO, URINE | e | 9:35 AM | | procedure are in the | | TEST | | PST | | results section. | + +--------+ + + + | MICROALBUMIN/CREATIN | Routin | 10/14/2013 | HYPERTENSION, | Results for this | | INE RATIO, URINE | e | 9:35 AM | CONTROLLED | procedure are in the | | TEST | | PST | | results section. | + +--------+ + + + | VITAMIN D, | Routin | 10/14/2013 | | Results for this | | DEFICIENCY SCREEN | e | 9:34 AM | | procedure are in the | | (25-HYDROXY) | | PST | | results section. | + +--------+ + + + | HEMOGLOBIN A1C | Routin | 10/14/2013 | | Results for this | | | e | 9:34 AM | | procedure are in the | | | | PST | | results section. | + +--------+ + + + | COMPREHENSIVE | Routin | 10/14/2013 | | Results for this | | METABOLIC PANEL | e | 9:34 AM | | procedure are in the | | | | PST | | results section. | + +--------+ + + + | VITAMIN D, | Routin | 10/14/2013 | Unspecified | Results for this | | DEFICIENCY SCREEN | e | 9:05 AM | vitamin D deficiency | procedure are in the | | (25-HYDROXY) | | PST | | results section. | + +--------+ + + + | HEMOGLOBIN A1C | Routin | 10/14/2013 | Impaired fasting | Results for this | | | e | 9:05 AM | glucose | procedure are in the | | | | PST | | results section. | + +--------+ + + + | COMPREHENSIVE | Routin | 10/14/2013 | Hyperlipidemia | Results for this | | METABOLIC PANEL | e | 9:05 AM | HYPERTENSION, | procedure are in the | | | | PST | CONTROLLED | results section. | + +--------+ + + + documented in this encounter Results Culture, Urine, Smear (10/14/2013 10:22 AM PST) + + + + + + | Component | Value | Ref Range | Performed | Pathologist | | | | | At | Signature | + + + + + + | Gram Stain | GRAM STAIN:MODERATE | | [facility] | | | Result | WBC/HPFRARE EPITHELIAL | | [facility] | | | | CELLS/HPFMANY GRAM POS | | MEDICAL | | | | [facility] | | CENTER - | | | [...] | | (specimen) - Urine, | | Clean Catch | + + + + + | Narrative | Performed At | + + + | YELLOW/HAZY | [facility] | | | [facility] | | | [facility] | | | - LABORATORY | + + + + + + + + | Performing | Address | City/State/Zipcode | Phone Number | | Organization | | | | + + + + + | [facility] | [address] | [place] | [phone] | | [facility] | | [address] | | | - LABORATORY | | | | + + + + + | [facility] | [address] | [place] | | | [facility] | | [address] | | | - LABORATORY | | | | + + + + + UA, Microscopic, Reflex (10/14/2013 9:35 AM PST) + + + + + + | Component | Value | Ref Range | Performed | Pathologist | | | | | At | Signature | + + + + + + | WBC UA | 5-10 (H) | 0 - 5 /hpf | [facility] | | | | | | [facility] | | | | | | MEDICAL | | | | | | CENTER - | | | | | | LABORATORY | | + + + + + + | RBC UA | 0-3 | 0 - 3 /hpf | [facility] | | | | | | [facility] | | | | | | MEDICAL | | | | | | CENTER - | | | | | | LABORATORY | | + + + + + + | SQUAMOUS | FEW | FEW /hpf | [facility] | | | EPITHELIAL | [...] + | [facility] | [address] | [place] | [phone] | | [facility] | | [address] | | | - LABORATORY | | | | + + + + + | [facility] | [address] | [place] | | | [facility] | | [address] | | | - LABORATORY | | | | + + + + + Urinalysis with Microscopic if Indicated (10/14/2013 9:35 AM PST) + + + + + [...] + + + + | Color | YELLOW | | [facility] | | | | | [facility] | | | | | | MEDICAL | | | | | | CENTER - | | | | | | LABORATORY | | + + + + + + | Clarity | CLEAR | | [facility] | | | | | | [facility] | | | | | | MEDICAL | | | | | | CENTER - | | | | | | LABORATORY | | + + + + + + | Glucose, | NEGATIVE | NEGATIVE mg/dL | [facility] | | | Urine | | | [facility] | | | | | | MEDICAL | | | | | | CENTER - | | | | | | LABORATORY | | + + + + + + | Bilirubin, | NEGATIVE | NEGATIVE | [facility] | | | Urine | | | [facility] | | | | | | MEDICAL | | | | | | CENTER - | | | | | | LABORATORY | | + + + + + + | Ketones, | NEGATIVE | NEGATIVE | [facility] | | | Urine | | | [facility] | | | | | | MEDICAL | | | | | | CENTER - | | | | | | LABORATORY | | + + + + + + | Specific | <=1.005 | 1.001 - 1.030 | [facility] | | | [place] | | | [facility] | | | | | | MEDICAL | | | | | | CENTER - | | | | | | LABORATORY | | + + + + + + | Blood, | TRACE-INTACT | NEGATIVE | [facility] | | | Urine | | | [facility] | | | | | | MEDICAL | | | | | | CENTER - | | | | | | LABORATORY | | + + + + + + | pH, Urine | 5.5 | 5.0 - 8.0 | [facility] | | | | | | [facility] | | | | | | MEDICAL | | | | | | CENTER - | | | | | | LABORATORY | | + + + + + + | Protein, | NEGATIVE | NEGATIVE mg/dL | [facility] | | | Urine | | | [facility] | | | | | | MEDICAL | | | | | | CENTER - | | | | | | LABORATORY | | + + + + + + | Urobilinoge | NORMAL | NORMAL EU/dL | [facility] | | | n, Urine | | | [facility] | | | | | | MEDICAL | | | | | | CENTER - | | | | | | LABORATORY | | + + + + + + | Nitrite, | NEGATIVE | NEGATIVE | [facility] | | | Urine | | | [facility] | | | | | | MEDICAL | | | | | | CENTER - | | | | | | LABORATORY | | + + + + + + | Leukocyte | TRACE | NEGATIVE | [facility] | | | Esterase, | | | [facility] | | | Urine | | | MEDICAL | | | | | | CENTER - | | | | | | LABORATORY | | + + + + + + | MICROSCOPIC | YES | | [facility] | | | ? | | | [facility] | | [...] | + + + + + | [facility] | [address] | [place] | [phone] | | [facility] | | [address] | | | - LABORATORY | | | | + + + + + | [facility] | [address] | [place], [place] | | | [facility] | | [address] | | | - LABORATORY | | | | + + + + + Microalbumin/Creatinine Ratio, Urine (10/14/2013 9:35 AM PST) + + + + + + | Component | Value | Ref Range | Performed | Pathologist | | | | | At | Signature | + + + + + + | Microalbumi | 15 | <18 mg/L | [facility] | | | n, Urine, | | | [facility] | | | Random | | | MEDICAL | | | | | | CENTER - | | | | | | LABORATORY | | + + + + + + | Creatinine, | 139.23 | mg/dL | [facility] | | | Urine | | | [facility] | | | | | | MEDICAL | | | | | | CENTER - | | | | | | LABORATORY | | + + + + + + | Microalb | 11Comment: | <30 mg/gm Cr | [facility] | | | Creat Ratio | <30 MG/G - NORMAL, | | [facility] | | | | REPEAT YEARLY | | MEDICAL | | | | 30-300 MG/G - INCREASED | | CENTER - | | | | RISK FROM DIABETIC | | LABORATORY | | | | NEPHROPATHY. | | | | | | TWO | | | | | | OF THREE A/C RATIOS IN | | | | | | THIS RANGE | | | | | | | | | | | | INDICATE | | | | | | MICROALBUMINURIA AND | | | | | | DIABETIC | | | | | | | | | | | | NEPHROPATHY. | | | | | | >300 MG/G - TWO OF | | | | | | THREE A/C RATIOS IN THIS | | | | | | RANGE | | | | | | CONFIRMS | | | | | | [facility] | | | | | | NEPHROPATHY. | | | | + + + + + + + + | Specimen | + + | | + + + + + + + | Performing | Address | City/State/[facility] | Phone Number | | Organization | | | | + + + + + | [facility] | [address] | [place] | [phone] | | [facility] | | [address] | | | - LABORATORY | | | | + + + + + | [facility] | [address] | [place] | | | [facility] | | [address] | | | - LABORATORY | | | | + + + + + UA, Microscopic, Reflex (10/14/2013 9:35 AM PST) + + + + + + | Component | Value | Ref Range | Performed | Pathologist | | | | | At | Signature | + + + + + + | WBC UA | 5-10 (A) | 0 - 5 /hpf | [facility] | | | | | | [facility] | | | | | | MEDICAL | | | | | | CENTER - | | | | | | LABORATORY | | + + + + + + | RBC UA | 0-3 | 0 - 3 /hpf | [facility] | | | | | | [facility] | | | | | | MEDICAL | | | | | | CENTER - | | | | | | LABORATORY | | + + + + + + | SQUAMOUS | FEW | FEW /hpf | [facility] | | | EPITHELIAL | [...] | Indicated | URINE CULTURE. | | [facility] | | | [...] | + + + + + | [facility] | [address] | [place] | [phone] | | [facility] | | [address] | | | - LABORATORY | | | | + + + + + | [facility] | [address] | [place] | | | [facility] | | [address] | | | - LABORATORY | | | | + + + + + Microalbumin/Creatinine Ratio, Urine (10/14/2013 9:35 AM PST) + + + + + + | Component | Value | Ref Range | Performed | Pathologist | | | | | At | Signature | + + + + + + | Microalbumi | 15 | <18 mg/L | [facility] | | | n, Urine, | | | [facility] | | | Random | | | MEDICAL | | | | | | CENTER - | | | | | | LABORATORY | | + + + + + + | Creatinine, | 139.23 | mg/dL | [facility] | | | Urine | | | [facility] | | | | | | MEDICAL | | | | | | CENTER - | | | | | | LABORATORY | | + + + + + + | Microalb | 11Comment: | <30 mg/gm Cr | [facility] | | | Creat Ratio | <30 MG/G - NORMAL, | | [facility] | | | | REPEAT YEARLY | | MEDICAL | | | | 30-300 MG/G - INCREASED | | CENTER - | | | | RISK FROM DIABETIC | | LABORATORY | | | | NEPHROPATHY. | | | | | | TWO OF | | | | | | THREE A/C RATIOS IN THIS | | | | | | RANGE | | | | | | INDICATE | | | | | | MICROALBUMINURIA AND | | | | | | DIABETIC | | | | | | NEPHROPATHY. | | | | | | >300 MG/G - | | | | | | TWO OF THREE A/C RATIOS | | | | | | IN THIS RANGE | | | | | | | | | | | | CONFIRMS [facility] | | | | | | NEPHROPATHY. | | | | + + + + + + + + | Specimen | + + | Urine specimen | | (specimen) | + + + + + + + | Performing | Address | City/State/Zipcode | Phone Number | | Organization | | | | + + + + + | [facility] | [address] | [place], [place] | [phone] | | [facility] | | [address] | | | - LABORATORY | | | | + + + + + | [facility] | [address] | [place], [place] | | | [facility] | | [address] | | | - LABORATORY | | | | + + + + + Urinalysis with Microscopic if Indicated (10/14/2013 9:35 AM PST) + + + + + [...] + + + + | Color | YELLOW | | [facility] | | | | | [facility] | | | | | | MEDICAL | | | | | | CENTER - | | | | | | LABORATORY | | + + + + + + | Clarity | CLEAR | | [facility] | | | | | | [facility] | | | | | | MEDICAL | | | | | | CENTER - | | | | | | LABORATORY | | + + + + + + | Glucose, | NEGATIVE | NEGATIVE mg/dL | [facility] | | | Urine | | | [facility] | | | | | | MEDICAL | | | | | | CENTER - | | | | | | LABORATORY | | + + + + + + | Bilirubin, | NEGATIVE | NEGATIVE | [facility] | | | Urine | | | [facility] | | | | | | MEDICAL | | | | | | CENTER - | | | | | | LABORATORY | | + + + + + + | Ketones, | NEGATIVE | NEGATIVE | [facility] | | | Urine | | | [facility] | | | | | | MEDICAL | | | | | | CENTER - | | | | | | LABORATORY | | + + + + + + | Specific | <=1.005 | 1.001 - 1.030 | [facility] | | | [place] | | | [facility] | | | | | | MEDICAL | | | | | | CENTER - | | | | | | LABORATORY | | + + + + + + | Blood, | TRACE-INTACT | NEGATIVE | [facility] | | | Urine | | | [facility] | | | | | | MEDICAL | | | | | | CENTER - | | | | | | LABORATORY | | + + + + + + | pH, Urine | 5.5 | 5.0 - 8.0 | [facility] | | | | | | [facility] | | | | | | MEDICAL | | | | | | CENTER - | | | | | | LABORATORY | | + + + + + + | Protein, | NEGATIVE | NEGATIVE mg/dL | [facility] | | | Urine | | | [facility] | | | | | | MEDICAL | | | | | | CENTER - | | | | | | LABORATORY | | + + + + + + | Urobilinoge | NORMAL | NORMAL EU/dL | [facility] | | | n, Urine | | | [facility] | | | | | | MEDICAL | | | | | | CENTER - | | | | | | LABORATORY | | + + + + + + | Nitrite, | NEGATIVE | NEGATIVE | [facility] | | | Urine | | | [facility] | | | | | | MEDICAL | | | | | | CENTER - | | | | | | LABORATORY | | + + + + + + | Leukocyte | TRACE | NEGATIVE | [facility] | | | Esterase, | [...] [facility] | [address] | [place] | [phone] | | [facility] | | [address] | | | - LABORATORY | | | | + + + + + | [facility] | [address] | [place] | | | [facility] | | [address] | | | - LABORATORY | | | | + + + + + Vitamin D, 25-Hydroxy (10/14/2013 9:34 AM PST) + + + + + + | Component | Value | Ref Range | Performed | Pathologist | | | | | At | Signature | + + + + + + | Vitamin D, | 24 (L)Comment: <20 ng/mL | 30 - 100 ng/mL | [facility] | | | 25 Hydroxy | Suggests deficiency of | | [facility] | | | | 25-OH Vitamin D. 20-29 | | MEDICAL | | | | ng/mL Suggests a | | CENTER - | | | | relative insufficiency | | LABORATORY | | | | of 25-OH Vitamin D. | | | | | | 30-100 ng/mL Suggests | | | | | | a sufficient level of | | | | | | 25-OH Vitamin D. >100 | | | | | | ng/mL Potentially Toxic | | | | | | level of 25-OH Vitamin | | | | | | D. Blood levels of | | | | | | 25-OH vitamin D vary | | | | | | with the extent of sun | | | | | | exposure. Values tend | | | | | | to be highest in late | | | | | | summer and lowest in | | | | | | spring. Values also tend | | | | | | to decrease with age, | | | | | | due to decreased | | | | | | precursor synthesis in | | | | | | the skin. | | | | + + + + + + + + | Specimen | + + | | + + + + + + + | Performing | Address | City/State/[facility] | Phone Number | | Organization | | | | + + + + + | [facility] | [address] | [place] | [phone] | | [facility] | | [address] | | | - LABORATORY | | | | + + + + + | [facility] | [address] | [place] | | | [facility] | | [address] | | | - LABORATORY | | | | + + + + + Hemoglobin A1C (10/14/2013 9:34 AM PST) + + + + + + | Component | Value | Ref Range | Performed | Pathologist | | | | | At | Signature | + + + + + + | Hemoglobin | 6.2 (H)Comment: | 4.3 - 5.8 % | [facility] | | | A1c | DIABETIC PATIENT RANGES: | | [facility] | | | | 6.2-7.0% = Well | | MEDICAL | | | | Controlled | | CENTER - | | | | | | LABORATORY | | | | 7.0-9.0% = | | | | | | Intermediate | | | | | | | | | | | | | | | | | | >9.0% = Poorly | | | | | | Controlled | | | | + + + + + + + + | Specimen | + + | | + + + + + + + | Performing | Address | City/State/Zipcode | Phone Number | | Organization | | | | + + + + + | [facility] | [address] | [place] | [phone] | | [facility] | | [address] | | | - LABORATORY | | | | + + + + + | [facility] | [address] | [place] | | | [facility] | | [address] | | | - LABORATORY | | | | + + + + + Comprehensive Metabolic Panel (10/14/2013 9:34 AM PST) + + + + + + | Component | Value | Ref Range | Performed | Pathologist | | | | | At | Signature | + + + + + + | Glucose | 123 (H) | 70 - 109 mg/dL | [facility] | | | | | | [facility] | | | | | | MEDICAL | | | | | | CENTER - | | | | | | LABORATORY | | + + + + + + | Calcium | 9.6 | 8.3 - 10.5 | [facility] | | | | | mg/dL | [facility] | | | | | | MEDICAL | | | | | | CENTER - | | | | | | LABORATORY | | + + + + + + | Alkaline | 94 | 40 - 110 IU/L | [facility] | | | Phosphatase | | | [facility] | | | | | | MEDICAL | | | | | | CENTER - | | | | | | LABORATORY | | + + + + + + | AST | 27 | 10 - 42 IU/L | [facility] | | | | | | [facility] | | | | | | MEDICAL | | | | | | CENTER - | | | | | | LABORATORY | | + + + + + + | ALT | 23 | 6 - 45 IU/L | [facility] [...] + + + + | Total | 7.1 | 6.0 - 7.8 gm/dL | [facility] | | | Protein | | | [facility] | | | | | | MEDICAL | | | | | | CENTER - | | | | | | LABORATORY | | + + + + + + | Albumin | 3.6 | 3.2 - 5.0 gm/dL | [facility] | | | | | | [facility] | | | | | | MEDICAL [...] + + + + | Creatinine | 0.83 | 0.60 - 1.30 | [facility] | | | | | mg/dL | [facility] | | | | | | MEDICAL | | | | | | CENTER - | | | | | | LABORATORY | | + + + + + + | Estimated | >60Comment: For | >60 mL/min/A | [facility] | | | GFR | -Americans, | [...] + + + + | BUN/Creatin | 16.9 | 12 - 20 | [facility] | | | ine Ratio | | | [facility] | | | | | | MEDICAL | | | | | | CENTER - | | | | | | LABORATORY | | + + + + + + | Na | 140 | 136 - 149 mEq/L | [facility] | | | | | | [facility] | | | | | | MEDICAL | | | | | | CENTER - | | | | | | LABORATORY | | + + + + + + | K | 4.0 | 3.5 - 5.1 mEq/l | [facility] | | | | | | [facility] | | | | | | MEDICAL | | | | | | CENTER - | | | | | | LABORATORY | | + + + + + + | Cl | 106 | 98 - 109 mEq/l | [facility] | | | | | | [facility] | | | | | | MEDICAL | | | | | | CENTER - | | | | | | LABORATORY | | + + + + + + | CO2 | 24 | 24 - 31 mEq/L | [facility] | | | | | | [facility] | | | | | | MEDICAL | | | | | | CENTER - | | | | | | LABORATORY | | + + + + + + | Anion Gap | 14.0 | 6.0 - 17.0 | [facility] | [...] + | [facility] | [address] | [place] | [phone] | | [facility] | | [address] | | | - LABORATORY | | | | + + + + + | [facility] | [address] | [place], [place] | | | [facility] | | [address] | | | - LABORATORY | | | | + + + + + Vitamin D, 25-Hydroxy (10/14/2013 9:05 AM PST) + + + + + + | Component | Value | Ref Range | Performed | Pathologist | | | | | At | Signature | + + + + + + | Vitamin D, | 24 (L)Comment: <20 ng/mL | 30 - 100 ng/mL | [facility] | | | 25 Hydroxy | Suggests deficiency of | | [facility] | | | | 25-OH Vitamin D.20-29 | | MEDICAL | | | | ng/mL Suggests a | | CENTER - | | | | relative insufficiency | | LABORATORY | | | | of 25-OHVitamin D.30-100 | | | | | | ng/mL Suggests a | | | | | | sufficient level of | | | | | | 25-OH Vitamin D.>100 | | | | | | ng/mL Potentially Toxic | | | | | | level of 25-OH Vitamin | | | | | | D. Blood levels of 25-OH | | | | | | vitamin D vary with the | | | | | | extent of sunexposure. | | | | | | Values tend to be | | | | | | highest in late summer | | | | | | andlowest in spring. | | | | | | Values also tend to | | | | | | decrease with age, dueto | | | | | | decreased precursor | | | | | | synthesis in the skin. | | | | + + + + + + + + | Specimen | + + | Blood specimen | | (specimen) | + + + + + + + | Performing | Address | City/State/Zipcode | Phone Number | | Organization | | | | + + + + + | [facility] | [address] | [place] | [phone] | | [facility] | | [address] | | | - LABORATORY | | | | + + + + + | [facility] | [address] | [place] | | | [facility] | | [address] | | | - LABORATORY | | | | + + + + + Hemoglobin A1C (10/14/2013 9:05 AM PST) + + + + + + | Component | Value | Ref Range | Performed | Pathologist | | | | | At | Signature | + + + + + + | Hemoglobin | 6.2 (H)Comment: | 4.3 - 5.8 % | [facility] | | | A1c | DIABETIC PATIENT RANGES: | | [facility] | | | | 6.2-7.0% = Well | | MEDICAL | | | | Controlled | | CENTER - | | | | | | LABORATORY | | | | 7.0-9.0% = | | | | | | Intermediate | | | | | | | | | | | | >9.0% = | | | | | | Poorly Controlled | | | | + + + + + + + + | Specimen | + + | Blood specimen | | (specimen) | + + + + + + + | Performing | Address | City/State/Zipcode | Phone Number | | Organization | | | | + + + + + | [facility] | [address] | [place] | [phone] | | [facility] | | [address] | | | - LABORATORY | | | | + + + + + | [facility] | [address] | [place] | | | [facility] | | [id number] | | | - LABORATORY | | | | + + + + + Comprehensive Metabolic Panel (10/14/2013 9:05 AM PST) + + + + + + | Component | Value | Ref Range | Performed | Pathologist | | | | | At | Signature | + + + + + + | Glucose | 123 (H) | 70 - 109 mg/dL | [facility] | | | | | | [facility] | | | | | | MEDICAL | | | | | | CENTER - | | | | | | LABORATORY | | + + + + + + | Calcium | 9.6 | 8.3 - 10.5 | [facility] | | | | | mg/dL | [facility] | | | | | | MEDICAL | | | | | | CENTER - | | | | | | LABORATORY | | + + + + + + | Alkaline | 94 | 40 - 110 IU/L | [facility] | | | Phosphatase | | | [facility] | | | | | | MEDICAL | | | | | | CENTER - | | | | | | LABORATORY | | + + + + + + | AST | 27 | 10 - 42 IU/L | [facility] | | | | | | [facility] | | | | | | MEDICAL | | | | | | CENTER - | | | | | | LABORATORY | | + + + + + + | ALT | 23 | 6 - 45 IU/L | [facility] [...] + + + + | Total | 7.1 | 6.0 - 7.8 gm/dL | [facility] | | | Protein | | | [facility] | | | | | | MEDICAL | | | | | | CENTER - | | | | | | LABORATORY | | + + + + + + | Albumin | 3.6 | 3.2 - 5.0 gm/dL | [facility] | | | | | | [facility] | | | | | | MEDICAL | | | | | | CENTER - | | | | | | LABORATORY | | + + + + + + | BUN | 14 | 7 - 18 mg/dL | [facility] | | | | | | [facility] | | | | | | MEDICAL | | | | | | CENTER - | | | | | | LABORATORY | | + + + + + + | Creatinine | 0.83 | 0.60 - 1.30 | [facility] | | | | | mg/dL | [facility] | | | | | | MEDICAL | | | | | | CENTER - | | | | | | LABORATORY | | + + + + + + | Estimated | >60Comment: For | >60 mL/min/A | [facility] | | | GFR | -Americans, | | [facility] | | | | please multiply the | | MEDICAL | | | | result by 1.210 | | CENTER - | | | | This is an estimated GFR | | LABORATORY | | | | and is based on a | | | | | | standard adult | | | | | | body mass (A=1.73m2) and | | | | | | serum creatinine | | | | + + + + + + | BUN/Creatin | 16.9 | 12 - 20 | [facility] | | | ine Ratio | | | [facility] | | | | | | MEDICAL | | | | | | CENTER - | | | | | | LABORATORY | | + + + + + + | Na | 140 | 136 - 149 mEq/L | [facility] | | | | | | [facility] | | | | | | MEDICAL | | | | | | CENTER - | | | | | | LABORATORY | | + + + + + + | K | 4.0 | 3.5 - 5.1 mEq/l | [facility] | | | | | [facility] | | | | | | MEDICAL | | | | | | CENTER - | | | | | | LABORATORY | | + + + + + + | Cl | 106 | 98 - 109 mEq/l | [facility] | | | | | [facility] | | | | | | MEDICAL | | | | | | CENTER - | | | | | | LABORATORY | | + + + + + + | CO2 | 24 | 24 - 31 mEq/L | [facility] | | | | | | [facility] | | | | | | MEDICAL | | | | | | CENTER - | | | | | | LABORATORY | | + + + + + + | Anion Gap | 14.0 | 6.0 - 17.0 | [facility] | [...] + | [facility] | [address] | [place], [place] | [phone] | | [facility] | | [id number] | | | - LABORATORY | | | | + + + + + | [facility] | [address] | [place], [place] | | | [facility] | | [address] | | | - LABORATORY | | | | + + + + + documented in this encounter Visit Diagnoses + + | Diagnosis | + + | Hyperlipidemia Other and unspecified hyperlipidemia | + + | HYPERTENSION, CONTROLLED Essential hypertension, benign | + + | Impaired fasting glucose | + + | Unspecified vitamin D deficiency | + + documented in this encounter"
--- OUTSIDE RECORDS SUMMARY | ~2019-10-23 | XMS | Encounter Summary ---
Demographics + + + | Address | [address] | | | [place] [address] | + + + | Home Phone [...] Author | [facility] | | | and Rainerana | + + + | Organization | [facility] | | | and [...] [place], [place] | | | | | [address] | | + + + + + | Jelena Hill | ECON | [place] | | | | | [address] | | + + + + + Care Team Providers + +------+ + | Care Rn Paralegal Name | Role | Phone | + [...] + + + + | 08/28/ | Telephone | [facility] [place] [facility] | Ivy Sun | Results | | 2016 | | MEDICINE [place] | JUSTYN Keating [address] | | | | | [address] | [place] | | | | | [place], [place] | [address] | | | | | [address] | | | | | | [phone] | | | +--------+ + + + [...] | | | | | [place] | | | | | | [address] | | | | | | | | +--------+---------+ + + + documented as of this encounter Results Culture, Urine (08/28/2016 11:45 AM PDT) + + + + + + | Component | Value | Ref Range | Performed | Pathologist | | | | | At | Signature | + + + + + + | Culture | 10,000 CFU/ml | | [facility] | | | | Escherichia coli | | [facility] | | | [...] [address] | [place] | [phone] | | [facility] | | [address] | | | - LABORATORY | | | | + + + + + documented in this encounter Visit Diagnoses + + | Diagnosis | + + | Urinary tract infection without hematuria, site unspecified - Primary | + + documented in this encounter"
--- OUTSIDE RECORDS SUMMARY | ~2019-10-23 | XMS | Encounter Summary ---
Demographics + + + | Address | [address] | | | [place] [address] | + + + | Home Phone | | + + + | Preferred Language | Unknown | + + + | Marital Status | Single | + + + | Druze Affiliation | Unknown | + + + | Race | White | + + + | Ethnic Group | Not or | + + + Author + + + | Author | [facility] | + + + | Organization | [facility] | + + + | Address | Unknown | + + + | Phone | Unavailable | + + + Support + + + + + | Name | Relationship | Address | Phone | + + + + + | Aleks Noguera | BRYANT | [address] | | | | | [place] | | | | | [address] | | + + + + + Care Team Providers + +------+ + | Care Boiler Erector Name | Role | Phone | + [...] [place] | | | | | | [address] | | | | | | | [...] at: | | | | | | [employer], | | | | | | [address] [facility], | | | | | | [place] | | | | | | [address]. | | | | | | MICROSCOPIC [...] [facility] | [address], [address] | [place] [address] | | | DERMATOPATHOLOGY | [address] | | | + + + + + documented in this encounter Visit Diagnoses Not on filedocumented in this encounter"
--- OUTSIDE RECORDS SUMMARY | ~2019-10-23 | XMS | Encounter Summary ---
Demographics + + + | Address | [address] | | | [place] [address] | + + + | Home Phone | | + + + | Preferred Language | Unknown | + + + | Marital Status | Single | + + + | Mandaen Affiliation | 1077 | + + + | Race | Unknown | + + + | Ethnic Group | Unknown | + + + Author + + + | Author | [facility] | | | and Rainerana | + + + | Organization | [facility] | | [...] [place], [place] | | | | | [address] | | + + + + + | Jelena Hill | ECON | [place] | | | | | [address] | | + + + + + Care Team Providers + +------+ + | Care Nail Feeder Name | Role | Phone | + +------+ + | Ivy Sun | PCP | | + +------+ + Reason for Visit Service/Procedure (Routine) +--------+--------+ + + + + | Status | Reason | Specialty | Diagnoses / | Referred By | Referred To | | | | | Procedures | Contact | Contact | +--------+--------+ + + + + | Closed | | Radiology | Diagnoses | | [facility] | | | | | Lumbar | [place], | [address] | | | | | spondylosis | Francis Andersen MD | [place], | | | | | Procedures | [address] | [place] | | | | | [place] IN[place] | [place] | [address] | | | | | DX/THER AGNT | [place], [place] | Phone: | | | | | [place] | [address] | [phone] | | | | | FACET JOINT, | Phone: | Fax: | | | | | LUMBAR/SAC, | [phone] | [phone] | | | | | 1ST LEVEL | Fax: | | | | | | [place] | [phone] | | | | | | TRIAMCINOLON | | | | | | | E ACET INJ | | | | | | | NOS, 10 MG | | | | | | | Bilat L4-5 | | | | | | | Facet-Referr | | | | | | | [address] | | | | | | | [place] | | | +--------+--------+ + + + + Encounter Details +--------+ + + + + | Date | Type | Department | Care Team | Description | +--------+ + + + + | 03/20/ | Hospital | [facility] | Blancaf[place]ien, | Spondylosis of | | 2017 | Encounter | MED CTR XRAY [address] | [address] | lumbar region | | | | [place] | [facility], | without myelopathy | | | | [place] [address] | [place] [address] | or radiculopathy | | | | [phone] | [phone] | | | | | | | | | | | | Stroke Coordinator, [facility] | | +--------+ + + + + [...] this encounter Last Filed Vital Signs + +---------+ + + | Vital Sign | Reading | Time Taken | Comments | + +---------+ + + | Blood Pressure | 103/67 | 03/20/2017 2:06 PM | | | | | PDT | | + +---------+ + + | Pulse | 121 | 03/20/2017 2:06 PM | | | | | PDT | | + +---------+ + + | Temperature | - | - | | + +---------+ + + | Respiratory Rate | - | - | | + +---------+ + + | Oxygen Saturation | - | - | | + +---------+ + + | Inhaled Oxygen | - | - | | | Concentration | | | | + +---------+ + + | Weight | - | - | | + +---------+ + + | Height | - | - | | + +---------+ + + | Body Mass Index | - | - | | + +---------+ + + documented in this encounter Medications [...] + + + +---------+ + + | meclizine | Take 1 tablet by | 60 | 0 | 01/10/20 | | | (ANTIVERT) 25 mg | mouth 3 times daily | tablet | | 17 | 7 | | tabletIndications: | as needed. | | | | | | Benign paroxysmal | | | | | | | positional vertigo, | | | | | | | unspecified | | | | | | | laterality | | | | | | + [...] tablet by | 90 | 1 | 01/09/20 | | | (DITROPAN XL) 5 mg | mouth Daily. | tablet | | 17 | 7 | | 24 hr | | | [...] | 90 | 2 | 11/26/19 | 05/04/201 | | (ZOCOR) 10 mg | MOUTH [...] [place] | | | | | | [address] | | | | | | | | +--------+---------+ + + + documented as of this encounter Procedures + +--------+ + + + | Procedure Name | Priori | Date/Time | Associated Diagnosis | Comments | | | ty | | | | + +--------+ + + + | FL FACET INJECTION | Routin | 03/20/2017 | Spondylosis of | Results for this | | LUMBAR SACRAL | e | 1:44 PM | lumbar region | procedure are in the | | | | PDT | without myelopathy | results section. | | | | | or radiculopathy | | + +--------+ + + + documented in this encounter Results FL Facet Injection Lumbar Sacral (03/20/2017 1:44 PM PDT) + + | Specimen | + + | | + + + + ---+ | Narrative | Performed At | + + ---+ | | [facility] | | 03/20/2017Bilateral Lumbar Facet Steroid Injections Diagnosis: Lumbar | [facility] | | Spondylosis ICD-10 Code M47.816 Lucie Miller presents to the | [facility] | | fluoroscopy suite for fluoroscopically-guided bilateral L4-L5 facet | - IMAGING | | injections as part of conservative management for chronic pain with | | | lumbar spondylosis. After informed consent was obtained, the patient | | | laid in the prone position on the fluoroscopy table. The areas were | | | identified under fluoroscopic guidance. The areas were prepped and | | | draped in sterile fashion. A 25-gauge, 1.5-inch needle was inserted | | | into each region and approximately 3 mL of buffered 1% lidocaine was | | | infused. Then, a 22-gauge spinal needle was inserted into the superior | | | portion of each facet under fluoroscopic guidance. Confirmation into | | | the joint spaces was obtained with infusion of approximately 1 mL of | | | Omnipaque contrast which showed outline of the facet joints. Then, a | | | combination of 1 mL of 1% lidocaine and 1 mL of 40 mg/mL Kenalog was | | | infused divided between the 2 joints. The patient tolerated the | | | procedure well without complications. Pre- and post-procedure blood | | | pressures were stable. The patient was given verbal as well as written | | | follow-up instructions. Prior to the start of the procedure, the | | | following were performed and/or verified, including correct patient | | | identity, correct site/side marked and visible, agreement on the | | | procedure to be done, correct patient positioning and an accurate | | | procedure consent form. Any safety precautions based on clinical | | | history and/or medication use have been addressed. I personally | | | performed the procedure above. Estimated blood loss: | | | MinimalComplications: NoneFindings: As expectedAnesthesia: Local 1% | | | Lidocaine | | |positioning and an accurate procedure consent form. Any safety precautions | | |based on clinical history and/or medication use have been addressed. I | | |personally performed the procedure above. | | | | | |Estimated blood loss: Minimal | | |Complications: None | | |Findings: As expected | | |Anesthesia: Local 1% Lidocaine | | | | | + + ---+ + + + + + | Performing | Address | City[facility]State[facility] | Phone Number | | Organization | | | | + + + + + | [facility] | [address] | [place] | [phone] | | [facility] | | [address] | | | - IMAGING | | | | + + + + + documented in this encounter Visit Diagnoses + + | Diagnosis | + + | Spondylosis of lumbar region without myelopathy or radiculopathy Lumbosacral | | spondylosis without myelopathy | + + documented in this encounter Administered Medications + +--------+ +-------+------+------+ | Medication Order | MAR | Action | Dose | Rate | Site | | | Action | Date | | | | + +--------+ +-------+------+------+ | iohexol (OMNIPAQUE 300) 300 | Given | 03/20/20 | 4 mLs | | | | mg/mL injection 4 mL 4 mL, | | 17 1:50 | | | | | Other, ONCE, 03/20/17 at 1400, | | PM PDT | | | | | For 1 dose | | | | | | + +--------+ +-------+------+------+ +---+---+ | | | +---+---+ + +-------+ +-------+---+---+ | lidocaine (PF) 1% injection 2 | Given | 03/20/20 | 2 mLs | | | | mL 2 mL, Other, ONCE, Sat | | 17 1:55 | | | | | 03/20/17 at 1400, For 1 dose | | PM PDT | | | | + +-------+ +-------+---+---+ +---+---+ | | | +---+---+ + +-------+ +--------+---+---+ | lidocaine buffered 1% injection | Given | 03/20/20 | 10 mLs | | | | 10 mL 10 mL, Other, ONCE, Wed | | 17 1:45 | | | | | 03/20/17 at 1400, For 1 dose | | PM PDT | | | | + +-------+ +--------+---+---+ +---+---+ | | | +---+---+ + +-------+ +-------+---+---+ | triamcinolone acetonide | Given | 03/20/20 | 40 mg | | | | (KENALOG-40) 40 mg/mL injection | | 17 1:55 | | | | | 40 mg 40 mg, Other, ONCE, Wed | | PM PDT | | | | | 03/20/17 at 1400, For 1 dose, | | | | | | | Shake well. Not for IV use., | | | | | | + +-------+ +-------+---+---+ +---+---+ | | | +---+---+ documented in this encounter"
--- OUTSIDE RECORDS SUMMARY | ~2019-10-23 | XMS | Encounter Summary ---
Demographics + + + | Address | [address] | | | [place] [address] | + + + | Home Phone [...] + | Author | [facility] | | | and Rainerana | + + + | Organization | [facility] [...] [place], [place] | | | | | [address] | | + + + + + | Jelena Hill | ECON | [place] | | | | | [address] | | + + + + + Care Team Providers + +------+ + | Care Seedling Puller Name | Role | Phone | + [...] Description | +--------+--------+ + + + | 11/25/ | Refill | [facility] | Ivy Sun | Medication Refill | | 2014 | | MEDICINE [place] | Rishabh, JUSTYN [address] | | | | | [address] | [address] [place], [place] | | | | | [place], [place] | [address] | | | | | [address] | | | | | | [phone] | | | +--------+--------+ + + + [...] [place] | | | | | | [address] | | | | | | | | +--------+---------+ + + + documented as of this encounter Visit Diagnoses Not on filedocumented in this encounter"
--- OUTSIDE RECORDS SUMMARY | ~2019-10-23 | XMS | Encounter Summary ---
Demographics + + + | Address | [address] | | | [place] [address] | + + + | Home Phone [...] + + | Author | [facility] | | | and Rainerana | + + + | Organization | [facility] | | | and Rainerana [...] [place], [place] | | | | | [address] | | + + + + + | Jelena Hill | ECON | [place] | | | | | [address] | | + + + + + Care Team Providers + +------+ + | Care Metal Stamper Name | Role | Phone | + [...] Description | +--------+--------+ + + + | 12/25/ | Refill | [facility] | Ivy Sun | Medication Refill | | 2017 | | MEDICINE [place] | Rishabh, JUSTYN [address] | | | | | [address] | [place] | | | | | [place] | [address] | | | | | [address] | | | | | | [phone] | | | +--------+--------+ + + + [...] | | 2020 | Visit | | [address] | | | | | | [place] | | | | | | [address] | | | | | | | | +--------+---------+ + + + documented as of this encounter Visit Diagnoses Not on filedocumented in this encounter"
--- OUTSIDE RECORDS SUMMARY | ~2019-10-23 | XMS | Encounter Summary ---
Demographics + + + | Address | [address] | | | [place] [address] | + + + | Home Phone [...] + | Author | [facility] | | | and Rainerana | + + + | Organization | [facility] | | | and Rainerana [...] [place], [place] | | | | | [address] | | + + + + + | Jelena Hill | ECON | [place] | | | | | [address] | | + + + + + Care Team Providers + +------+ + | Care Engine Service Repairer Name | Role | Phone | + [...] + + | Closed | Specialty | Orthotics | Diagnoses | Dino, | Bre, | | | Services | | Other | Ivy Keating, | Reymundo Galeana MD | | | Required | | dislocation | ROUGH PLANER TENDER [address] | [address] | | | | | of right | [address] | Ave | | | | | patella, | [place], | [place], [place] | | | | | subsequent | [place] [address] | [address] | | | | | encounter | Phone: | Phone: | | | | | Primary | [phone] | [phone] | | | | | osteoarthrit | Fax: | Fax: | | | | | is of right | [phone] | [phone] | | | | | knee | | | +--------+ + + + + + Reason for Visit + + + | Reason | Comments | + + + | Osteoarthritis | | + + + Encounter Details +--------+ + + + + | Date | Type | Department | Care Team | Description | +--------+ + + + + | 07/25/ | Telephone | [facility] [place] [facility] | Ivy Sun | Osteoarthritis | | 2015 | | MEDICINE [place] | JUSTYN Keating [address] | | | | | [address] | [address]VE [place], [place] | | | | | [place], [place] | [address] | | | | | [address] | | | | | | [phone] | | | +--------+ + + + [...] [place] | | | | | | [address] | | | | | | | | +--------+---------+ + + + + + +--------+ + + | Name | Type | Priori | Associated Diagnoses | Order Schedule | | | | ty | | | + + +--------+ + + | * [facility] | Outpatient | Routin | Other dislocation | Ordered: 07/25/2016 | | Orthopedic Surgery - | Referral | e | of right patella, | | | AMB Referral | | | subsequent encounter | | | | | | Primary | | | | | | osteoarthritis of | | | | | | right knee | | + + +--------+ + + documented as of this encounter Visit Diagnoses + + | Diagnosis | + + | Other dislocation of right patella, subsequent encounter - Primary | + + | Primary osteoarthritis of right knee Primary localized osteoarthrosis, lower leg | + + documented in this encounter"
--- OUTSIDE RECORDS SUMMARY | ~2019-10-23 | XMS | Encounter Summary ---
Demographics + + + | Address | [address] | | | [place] [address] | + + + | Home Phone [...] | Author | [facility] | | | and Rainerana | + + + | Organization | [facility] | | [...] [place], [place] | | | | | [address] | | + + + + + | Jelena Hill | ECON | [place] | | | | | [address] | | + + + + + Care Team Providers + +------+ + | Care Motor Vehicle Clerk Name | Role | Phone | + +------+ + | Ivy Sun | PCP | | + +------+ + Encounter Details +--------+ + + + + | Date | Type | Department | Care Team | Description | +--------+ + + + + | 07/08/ | Abstract | [facility] [place] [facility] | Ivy Sun | | | 2013 | | MEDICINE [place] | L, MUSHROOM CUTTER [address] | | | | | [address] | [address] [place] | | | | | [place] | [address] | | | | | [address] | | | | | | [phone] | | | +--------+ + + + [...] [place] | | | | | | [address] | | | | | | | | +--------+---------+ + + + documented as of this encounter Procedures + +--------+ + + + | Procedure Name | Priori | Date/Time | Associated Diagnosis | Comments | | | ty | | | | + +--------+ + + + | EXTERNAL LAB: AST | Routin | 07/06/2014 | | Results for this | | | e | 9:00 AM | | procedure are in the | | | | PDT | | results section. | + +--------+ + + + | EXTERNAL LAB: ALT | Routin | 07/06/2014 | | Results for this | | | e | 9:00 AM | | procedure are in the | | | | PDT | | results section. | + +--------+ + + + | EXTERNAL LAB: EGFR | Routin | 07/06/2014 | | Results for this | | | e | 9:00 AM | | procedure are in the | | | | PDT | | results section. | + +--------+ + + + | EXTERNAL LAB: | Routin | 07/06/2014 | | Results for this | | CREATININE | e | 9:00 AM | | procedure are in the | | | | PDT | | results section. | + +--------+ + + + | EXTERNAL LAB: | Routin | 07/06/2014 | | Results for this | | HEMOGLOBIN A1C | e | 9:00 AM | | procedure are in the | | | | PDT | | results section. | + +--------+ + + + | T4, FREE | Routin | 07/06/2014 | | Results for this | | | e | 9:00 AM | | procedure are in the | | | | PDT | | results section. | + +--------+ + + + | COMPREHENSIVE | Routin | 07/06/2014 | | Results for this | | METABOLIC PANEL | e | 9:00 AM | | procedure are in the | | | | PDT | | results section. | + +--------+ + + + documented in this encounter Results T4, Free (07/06/2014 9:00 AM PDT) + +-------+ + + + | Component | Value | Ref Range | Performed | Pathologist | | | | | At | Signature | + +-------+ + + + | Free T4 | 1.2 | 0.7 - 1.7 ng/dL | [facility] | | | | | | [facility] | | | [facility] | | [facility] | | | | | | [facility] - | | | | | | LABORATORY | | + +-------+ + + + | T3, Free | 3.07 | 2.5 - 4.3 | [facility] | | | | | [...] + | [facility] | [address] | [place] | | | [facility] | | [address] | | | - LABORATORY | | | | + + + + + Comprehensive Metabolic Panel (07/06/2014 9:00 AM PDT) + +---------+ + + + | Component | Value | Ref Range | Performed | Pathologist | | | | | At | Signature | + +---------+ + + + | Na | 134 | 132 - 143 | [facility] | | | | | mmol/L | [facility] | | | | | | MEDICAL | | | | | | CENTER - | | | | | | LABORATORY | | + +---------+ + + + | K | 4.3 | 3.6 - 5.1 | [facility] | | | | | mmol/L | [facility] | | | | | | MEDICAL | | | | | | CENTER - | | | | | | LABORATORY | | + +---------+ + + + | Chloride | 102 | 95 - 112 | [facility] | | | | | | [facility] | | | | | | MEDICAL | | | | | | CENTER - | | | | | | LABORATORY | | + +---------+ + + + | CO2 | 27 | 19 - 31 mmol/L | [facility] | | | | | | [facility] | | | | | | MEDICAL | | | | | | CENTER - | | | | | | LABORATORY | | + +---------+ + + + | Anion Gap | 9 | 7 - 21 mmol/L | [facility] | | | | | | [facility] | | | | | | MEDICAL | | | | | | CENTER - | | | | | | LABORATORY | | + +---------+ + + + | Glucose | 111 (A) | 70 - 100 mg/dL | [facility] | | | | | | [facility] | | | | | | MEDICAL | | | | | | CENTER - | | | | | | LABORATORY | | + +---------+ + + + | BUN | 21 | 6 - 23 mg/dL | [facility] | | | | | | [facility] | | | | | | MEDICAL | | | | | | CENTER - | | | | | | LABORATORY | | + +---------+ + + + | Bun/Creatin | 20.8 | 6.0 - 28.6 | [facility] | | | ine | | | [facility] | | | | | | [facility]ICAL | | | | | | CENTER - | | | | | | LABORATORY | | + +---------+ + + + | Calcium | 9.4 | 8.4 - 10.2 | [facility] | | | | | mg/dL | [facility] | | | | | | MEDICAL | | | | | | CENTER - | | | | | | LABORATORY | | + +---------+ + + + | Total | 7.0 | 6.0 - 8.0 g/dL | [facility] | | | Protein | | | [facility] | | | | | | MEDICAL | | | | | | CENTER - | | | | | | LABORATORY | | + +---------+ + + + | Bilirubin | 0.4 | 0.0 - 1.2 mg/dL | [facility] | | | Total | | | [facility] | | | | | | MEDICAL | | | | | | CENTER - | | | | | | LABORATORY | | + +---------+ + + + | Albumin | 3.8 | 3.5 - 5.0 g/dL | [facility] | | | | | | [facility] | | | | | | MEDICAL | | | | | | CENTER - | | | | | | LABORATORY | | + +---------+ + + + | Globulin | 3.2 | 1.8 - 3.5 | [facility] | | | | | | [facility] | | | | | | MEDICAL | | | | | | CENTER - | | | | | | LABORATORY | | + +---------+ + + + | Albumin/Cindy | 1.2 | 1.1 - 2.4 | [facility] | | | bulin Ratio | | | [facility] | | | | | | MEDICAL | | | | | | CENTER - | | | | | | LABORATORY | | + +---------+ + + + | Alkaline | 100 | 30 - 128 U/L | [facility] | | | Phosphatase | | | [facility] | | [...] St | [place] | | | [facility] | | [address] | | | - LABORATORY | | | | + + + + + External Lab: AST (07/06/2014 9:00 AM PDT) + +-------+ + + + | Component | Value | Ref Range | Performed | Pathologist | | | | | At | Signature | + +-------+ + + + | AST, | 27 | | | | | External | | | | | + +-------+ + + + + + | Specimen | + + | Blood specimen | | (specimen) | + + External Lab: ALT (07/06/2014 9:00 AM PDT) + +-------+ + + + | Component | Value | Ref Range | Performed | Pathologist | | | | | At | Signature | + +-------+ + + + | ALT, | 20 | | | | | External | | | | | + +-------+ + + + + + | Specimen | + + | Blood specimen | | (specimen) | + + External Lab: eGFR (07/06/2014 9:00 AM PDT) + +-------+ + + + | Component | Value | Ref Range | Performed | Pathologist | | | | | At | Signature | + +-------+ + + + | eGFR, | 56 | | | | | External | | | | | + +-------+ + + + | eGFR, | | | | | | | | | | | | Serbian, | | | | | | External | | | | | + +-------+ + + + + + | Specimen | + + | Blood specimen | | (specimen) | + + External Lab: Creatinine (07/06/2014 9:00 AM PDT) + +-------+ + + + | Component | Value | Ref Range | Performed | Pathologist | | | | | At | Signature | + +-------+ + + + | Creatinine, | 1.01 | | | | | External | | | | | + +-------+ + + + + + | Specimen | + + | Blood specimen | | (specimen) | + + External Lab: Hemoglobin A1c (07/06/2014 9:00 AM PDT) + +-------+ + + + | Component | Value | Ref Range | Performed | Pathologist | | | | | At | Signature | + +-------+ + + + | Hemoglobin | 6.0 | | | | | A1c, | | | | | | external | | | | | + +-------+ + + + + + | Specimen | + + | Blood specimen | | (specimen) | + + documented in this encounter Visit Diagnoses Not on filedocumented in this encounter"
--- OUTSIDE RECORDS SUMMARY | ~2019-10-23 | XMS | Encounter Summary ---
Demographics + + + | Address | [address] | | | [place] [address] | + + + | Home Phone [...] + + | Author | [facility] | | | and Rainerana | + + + | Organization | [facility] | | | and [...] [place], [place] | | | | | [address] | | + + + + + | Jelena Hill | ECON | [place] | | | | | [address] | | + + + + + Care Team Providers + +------+ + | Care Computer Forensics Technician Name | Role | Phone | [...] | (Primary Dx); | | | | [address], | [address] [place] | Aortic root | | | | [place] [address] | [place] [address] | enlargement (HCC) | | | | [phone] | [phone] | | | | | | | [...] [place] | | | | | | [id number] | | | | | | | [...]
--- OUTSIDE RECORDS SUMMARY | ~2019-10-23 | XMS | Encounter Summary ---
Demographics + + + | Address | [address] | | | [place] [address] | + + + | Home Phone [...] | Author | [facility] | | | and Rainerana | + + + | Organization | [facility] | | | and Rainerana [...] [place], [place] | | | | | [address] | | + + + + + | Jelena Hill | ECON | [place], [place] | | | | | [address] | | + + + + + Care Team Providers + +------+ + | Care Quilt Maker Name | Role | Phone | [...] | | | | | | [place] [address] | | | | | | [phone] | | | +--------+ + + + [...] [place] | | | | | | [address] | | | | | | | | +--------+---------+ + + + documented as of this encounter Visit Diagnoses Not on filedocumented in this encounter"
--- OUTSIDE RECORDS SUMMARY | ~2019-10-23 | XMS | Encounter Summary ---
Demographics + + + | Address | [address] | | | [place] [address] | + + + | Home Phone [...] | Author | [facility] | | | and Rainerana | + + + | Organization | [facility] | | [...] [place], [place] | | | | | [address] | | + + + + + | Jelena Hill | ECON | [place] | | | | | [address] | | + + + + + Care Team Providers + +------+ + | Care Rollway Man Name | Role | Phone | + +------+ + | Ivy Sun | PCP | | + +------+ + Reason for Visit +---------+ + | Reason | Comments | +---------+ + | Results | follow-up labs A1C | +---------+ + Encounter Details +--------+---------+ + + + | Date | Type | Department | Care Team | Description | +--------+---------+ + + + | 12/09/ | Office | [facility] | Ivy Sun | Prediabetes (Primary | | 2013 | Visit | MEDICINE [place] | JUSTYN Espinosa [address] | Dx) | | | | [address] | [address] [place] [facility] [place] | | | | | [place] | [address] | | | | | [address] | | | | | | [phone] | | | +--------+---------+ + + + [...] + + + | Blood Pressure | 84/60 | 12/09/2013 10:32 AM | | | | | PST | | + + + + + | Pulse | 106 | 12/09/2013 10:32 AM | | | | | PST | | + + + + + | Temperature | 35.9 C (96.7 F) | 12/09/2013 10:32 AM | | | | | PST | | + + + + + | Respiratory Rate | 16 | 12/09/2013 10:32 AM | | | | | PST | | + + + + + | Oxygen Saturation | 97% | 12/09/2013 10:32 AM | | | | | PST | | + + + + + | Inhaled Oxygen | - | - | | | Concentration | | | | + + + + + | Weight | 116.6 kg (257 lb) | 12/09/2013 10:32 AM | | | | | PST | | + + + + + | Height | 170.2 cm (5' 7") | 12/09/2013 10:32 AM | | | | | PST | | + + + + + | Body Mass Index | 40.25 | 12/09/2013 10:32 AM | | | | | PST | | + + + + + documented in this encounter Patient Instructions Patient Instructions Ivy Sun ARNP - 12/09/2013 11:09 AM PSTCheck blood sugar marin lf the week in am fasting and half the week 2 hours after biggest meal. Limit carbohydrate intake to 35 grams per meal for 3 meals a day and 15 gram snacks for up to 2 snacks per day. Suzette called GOMEALS P ST documented in this encounter Progress Notes Ivy Sun ARNP - 12/09/2013 10:54 AM PSTFormatting of this note might be differen t from the original. Subjective: Lucie Miller is a 63 y.o. female patient of Ivy Sun. Chief Complaint: Results Here for follow-up of her recent labs. A1c on 10-14-14 was noted to be 6.2. She's been hav ing difficulties with impaired fasting glucose for a while and we have been monitoring her A 1c. When last checked it was 5.7 in April. Her weight has been stable. 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 No Known Allergies Medications: She has a current medication list which includes the following prescription(s): alendronate , aspirin adult low strength, ergocalciferol, lisinopril, metronidaole, nortriptyline, parox etine, ropinirole, simvastatin, triamcinolone, UNCODED MEDICATION, and UNCODED [...] Sleep apnea; Smoker; Seborrhe ic dermatitis (10/14/2013); and Rosacea (10/14/2013). Past Surgical History She has past surgical history that includes laminal discectomy (1991); gastroplasty (1985); buinoectomy (1986); hammertoe repair; right fibula hairline fx (1997); Endometrial biopsy ( 2001); left knee ARTHROSCOPY (2005); and Total knee arthroplasty (07/15/13). Family History: Her family history includes Alzheimer's disease in her mother; Heart attack in her father; Heart disease in her maternal grandfather and paternal grandmother; and Stroke in her patern al grandfather. Social History: She reports that she has quit smoking. Her smoking use included Cigarettes. She has a 7.5 p ack-year smoking history. She does not have any smokeless tobacco history on file. She repor ts that she does not drink alcohol or use illicit drugs. Review of Systems Pertinent items are noted in HPI. Objective: BP 84/60 | Pulse 106 | Temp 35.9 C (96.7 F) (Temporal) | Resp 16 | Ht 1.702 m (5' 7") | Wt 116.574 kg (257 lb) | BMI 40.25 kg/m2 | SpO2 97% | ? No General Appearance: Alert, cooperative, no distress, appears stated age Head: Normocephalic, without obvious abnormality, atraumatic Neurologic: Nonfocal. Alert and oriented. Results for orders placed during the hospital encounter of 10/14/13 COMPREHENSIVE METABOLIC PANEL Component Value Range GLUCOSE 123 (*) 70 - 109 mg/dL CALCIUM 9.6 8.3 - 10.5 mg/dL ALK PHOS 94 40 - 110 IU/L AST 27 10 - 42 IU/L ALT 23 6 - 45 IU/L BILIRUBIN TOTAL 0.5 0.2 - 1.0 mg/dL Total protein 7.1 6.0 - 7.8 gm/dL ALBUMIN 3.6 3.2 - 5.0 gm/dL BUN 14 7 - 18 mg/dL CREA 0.83 0.60 - 1.30 mg/dL Estimated GFR >60 >60 mL/min/A BUN/Creatinine Ratio 16.9 12 - 20 NA 140 136 - 149 mEq/L K 4.0 3.5 - 5.1 mEq/l CL 106 98 - 109 mEq/l CO2 24 24 - 31 mEq/L ANION GAP 14.0 6.0 - 17.0 HEMOGLOBIN A1C Component Value Range Hemoglobin A1c 6.2 (*) 4.3 - 5.8 % VITAMIN D, 25-HYDROXY Component Value Range Vitamin D, 25 Hydroxy 24 (*) 30 - 100 ng/mL URINALYSIS WITH MICROSCOPIC IF INDICATED Component Value Range COLLECTION METHOD 1 . COLOR YELLOW CLARITY CLEAR GLUCOSE UA NEGATIVE NEGATIVE mg/dL BILIRUBIN UA NEGATIVE NEGATIVE KETONES UA NEGATIVE NEGATIVE Specific [place] <=1.005 1.001 - 1.030 BLOOD UA TRACE-INTACT NEGATIVE PH UA 5.5 5.0 - 8.0 PROTEIN UA NEGATIVE NEGATIVE mg/dL UROBILINOGEN UA NORMAL NORMAL EU/dL NITRITE UA NEGATIVE NEGATIVE LEUKOCYTES ESTERASE UA TRACE NEGATIVE MICROALBUMIN/CREATININE RATIO, URINE TEST Component Value Range MALB,RANDOM URINE 15 <18 mg/L CREATININE, UR 139.23 Microalb Creat Ratio 11 <30 mg/gm Cr UA, MICROSCOPIC, REFLEX Component Value Range WBC UA 5-10 (*) 0 - 5 /hpf RBC UA 0-3 0 - 3 /hpf SQUAMOUS EPITHELIAL UA FEW FEW /hpf BACTERIA UA RARE NONE /hpf Culture Indicated YES CULTURE, URINE, SMEAR Component Value Range Gram Stain Result Value: GRAM STAIN: MODERATE WBC/HPF RARE EPITHELIAL CELLS/HPF MANY GRAM POS BACILLI CULTURE BACTERIA URINE Value: Lissette (Reportable) 25-50,000 PERIURETHRAL LISSETTE Assessment and Plans: Lucie was seen today for results. Diagnoses and associated orders for this visit: Prediabetes Spent quite a bit of time discussing with her her A1c and implications of that. I like to 2 hour glucose tolerance test. Explained to her that she will need to monitor her blood sug ars daily. Half the week fasting in the other half the week 2 hours postprandial. I start her on metformin 500 mg twice daily. She start taking it once a day for 1-2 weeks to make s ure she's tolerating that well. She was seen in conjunction by Konrad Mercado, RN care manage r for diabetes. I did discuss patient's progress with her and reviewed Konrad's note.We kenney espinosa see her back in 3 months. She was educated on how to use the glucose meter, book "living w hanny with diabetes" was provided. Advised her to limit her carbs to 35 gram per meal and 15 g celia snack. Recommended daily exercise and also recommend weight loss. Discussed adding prote in with complex carb at each meal to sustain b/s. Recommended suzette GOMEALS to track carb in t rafael 35 minutes spent with patient, 100% in face to face counseling and coordination of care. - Glucose Tolerance Test, 2Hr; Future Other Orders - metFORMIN (GLUCOPHAGE) 500 mg tablet; Take 1 tablet by mouth 2 times daily. Care instructions and warning signs were discussed. Medications per orders. Side effects discussed. Labs and investigations per orders. Recheck 3 months. Sooner prn. This note was dictated using [employer] voice recognition software. Every attempt was made for accuracy, but grammatical errors may exist. If there are questions regarding this, please co ntact provider. d ocumented in this encounter Plan of Treatment +--------+---------+ + + + | Date | Type | Specialty | Care Team | Description | +--------+---------+ + + + | 11/23/ | Office | Family Medicine | Ivy Sun | | | 2020 | Visit | | JUSTYN Espinosa [address] | | | | | | [place] | | | | | | [id number] | | | | | | | | +--------+---------+ + + + + +------+--------+ + + | Name | Type | Priori | Associated Diagnoses | Order Schedule | | | | ty | | | + +------+--------+ + + | Glucose Tolerance | Lab | Routin | Prediabetes | 1 Occurrences | | Test, 2Hr | | e | | starting 12/09/2013 | | | | | | until 12/09/2014 | + +------+--------+ + + documented as of this encounter Visit Diagnoses + + | Diagnosis | + + | Prediabetes - Primary Other abnormal glucose | + + documented in this encounter
--- OUTSIDE RECORDS SUMMARY | ~2019-10-23 | XMS | Encounter Summary ---
Demographics + + + | Address | [address] | | | [place] [address] | + + + | Home Phone [...] | Author | [facility] | | | and Rainerana | + + + | Organization | [facility] | | | and Rainerana | + + + | Address | Unknown | + + + | Phone | Unavailable | + + + Support + + + + + | Name | Relationship | Address | Phone | + + + + + | Aleks Noguera | BRYANT | [address] | | | | | [place], [place] | | | | | [address] | | + + + + + | Jelena Hill | ECON | [place] | | | | | [address] | | + + + + + Care Team Providers + +------+ + | Care Financial Foundations Associate Name | Role | Phone | + [...] | | | | | | | [place] | | | | | | | [...] + + + + | 06/03/ | Hospital | [facility] | Eleazar Mustafa | Hypertension | | 2014 | Encounter | MED CTR OR INTRA OP | Liliana, DO [address] | (Primary Dx) | | | | [address] | [address] [place] | | | | | [place], [place] | [place] [address] | | | | | [address] | [phone] | | | | | [phone] | | | +--------+ + + + [...] This can be controlled with an o [id number] pain reliever. You may have some light [...] than 1 pad an hour). A fever [id number]. Increasing abdominal pain, tenderness, or cramping. Foul-smelling discharge. [id number] [facility], [address] [place] [address], [place] [address]. All rights reserve d. This information is [...] [place] | | | | | | [address] | | | | | | | [...] Adult ECG Report | | | Name: Lucie Miller Age: 64 y.o. Gender: female 06/03/14 at | | | 7:39 Narrative Interpretation: Sinus rhythm. Right bundle branch | | | block. Possible lateral infarction age-indeterminate. | | + + + + + | Procedure Note | + + | Johnson Shetty MD - 08/23/2014 6:18 PM PDT Adult ECG Report Name: Lucie Marrufo | | Stryker Age: 64 y.o. Gender: female06/03/14 at 7:39 [...] | | | | g/dL | [facility] | | | | [...] [address] | [place] | [phone] | | [facility] | | [address] | | | - LABORATORY | | | | + + + + + | [address] | [address] | [place], [place] | | | [facility] | | [address] | | | - LABORATORY | | [...] + | [address] | [address] | [place] | [phone] | | [facility] | | [address] | | | - LABORATORY | | | | + + + + + | [facility] | [address] | [place] | | | [facility] | | [address] | | | - LABORATORY | | | | + + + + + documented in this encounter Visit Diagnoses + + | Diagnosis | + + | Hypertension - Primary Unspecified essential hypertension | + + documented [...] | | | hrs. If ineffective use [place] | | | | | | | [...] | mL/hr | | | CONTINUOUS, Starting [facility] 06/03/14 | | AM PDT | | | | | at 0715, TKO., Pre-op | | | | | | + +---------+ +---+-------+---+ +---+---+ | | | +---+---+ documented in this encounter
--- OUTSIDE RECORDS SUMMARY | ~2019-10-23 | XMS | Encounter Summary ---
Demographics + + + | Address | [address] | | | [place] [address] | + + + | Home Phone | | + + + | Preferred Language | Unknown | + + + | Marital Status | Single | + + + | Orthodox Affiliation | 1077 | + + + | Race | Unknown | + + + | Ethnic Group | Unknown | + + + Author + + + | Author | [facility] | | | and Rainerana | + + + | Organization | [facility] | | | and [...] [place], [place] | | | | | [address] | | + + + + + | Jelena Hill | ECON | [place] | | | | | [address] | | + + + + + Care Team Providers + +------+ + | Care Forming Mill Operator Name | Role | Phone | [...] | 03/19/ | Telephone | [facility] | Ivy Sun | Other | | 2013 | | MEDICINE DEBRAGATTrish | JUSTYN Keating [address] | | | | | [address] | [address]VE [place], [place] | | | | | [place], [place] | [address] | | | | | [address] | | | | | | [phone] | | | +--------+ + + + [...] | | | | | [place] | | | | | | [address] | | | | | | | [...]
--- OUTSIDE RECORDS SUMMARY | ~2019-10-23 | XMS | Encounter Summary ---
Demographics + + + | Address | [address] | | | [place] [address] | + + + | Home Phone [...] | Author | [facility] | | | and Rainerana | + + + | Organization | [facility] | | | and Rainerana [...] [place], [place] | | | | | [address] | | + + + + + | Jelena Hill | ECON | [place] | | | | | [address] | | + + + + + Care Team Providers + +------+ + | Care Laborer Filter Plant Name | Role | Phone | + +------+ + | Ivy Sun | PCP | | + +------+ + Encounter Details +--------+ + + + + | Date | Type | Department | Care Team | Description | +--------+ + + + + | 07/24/ | Hospital | [facility] | Ivy Sun | Decreased GFR | | 2016 | Encounter | MED CTR LABORATORY | L, PRIMER INSPECTOR [address] | | | | | [address] [place] | [place]VE [place], [place] | | | | | [place], [place] | [address] | | | | | [address] | | | | | | [phone] | | | +--------+ + + + [...] [place] | | | | | | [address] | | | | | | | [...] mL/min/1.73m2 | [facility] | | | [place] | | | MEDICAL | | | [...] + | [address] [facility] | [address] | [place] | [phone] | | [facility] | | [address] | | | - LABORATORY | | | | + + + + + documented in this encounter Visit Diagnoses + + | Diagnosis | + + | Decreased GFR Nonspecific abnormal results of kidney function study | + + documented in this encounter"
--- OUTSIDE RECORDS SUMMARY | ~2019-10-23 | XMS | Encounter Summary ---
Demographics + + + | Address | [address] | | | [place] [address] | + + + | Home Phone [...] | Author | [facility] | | | and Rainerana | + + + | Organization | [facility] | | | and [...] [place], [place] | | | | | [address] | | + + + + + | Jelena Hill | ECON | [place] | | | | | [address] | | + + + + + Care Team Providers + +------+ + | Care Cream Beater Name | Role | Phone | + +------+ + | Ivy Sun | PCP | | + +------+ + Encounter Details +--------+ + + + + | Date | Type | Department | Care Team | Description | +--------+ + + + + | 11/11/ | Abstract | [facility] | Ivy Sun | | | 2019 | | [facility] | L, INTERPRETER DEAF [address] | | | | | [address] | [address]VE [place] | | | | | [place] | [address] | | | | | [address] | | | | | | [phone] | | | +--------+ + + + [...] [place] | | | | | | [address] | | | | | | | [...] | [address] | [place] [address] | [phone] | | [facility] | | | | + + + + + | REFERENCE LAB | [address] | [place] [address] | [phone] | | [facility] | | | | [...] | [address] | [place] [address] | [phone] | | [facility] | | | | + + + + + | REFERENCE LAB | [address] | [place] [address] | [phone] | | [facility] | | | | [...] + | REFERENCE LAB | [address] | [place] [address] | [phone] | | [facility] | | | | + + + + + | REFERENCE LAB | [address] | [place] [address] | [phone] | | [facility] | | | | [...] + + + | REFERENCE LAB | [facility] | [place] [address] | [phone] | | [facility] | | | | + + + + + | REFERENCE LAB | [address] [facility] | [place] [address] | [phone] | | [facility] | | | | [...] 1.005 - 1.03 | | | | [place], | | | | | | External [...] | [address] | [place] [address] | [phone] | | [facility] | | | | + + + + + | REFERENCE LAB | [address] | [place] [address] | [phone] | | [facility] | | | | [...]
--- OUTSIDE RECORDS SUMMARY | ~2019-10-23 | XMS | Encounter Summary ---
Demographics + + + | Address | [address] | | | [place] [address] | + + + | Home Phone | | + + + | Preferred Language | Unknown | + + + | Marital Status | Single | + + + | Evangelical Affiliation | 1077 | + + + | Race | Unknown | + + + | Ethnic Group | Unknown | + + + Author + + + | Author | [facility] | | | and Rainerana | + + + | Organization | [facility] | | | and Rainerana [...] [place], [place] | | | | | [address] | | + + + + + | Jelena Hill | ECON | [place] | | | | | [address] | | + + + + + Care Team Providers + +------+ + | Care Roofer Applicator Name | Role | Phone | + [...] | | 2016 | | [facility] | L, FLOOR COVERINGS SALESPERSON [address] | infection without | | | | [address] | [address]VE [place] | hematuria, site | | | | [place], [place] | [address] | unspecified | | | | [address] | | | | | | [phone] | | | +--------+ + + + [...] [place] | | | | | | [address] | | | | | | | [...] [address] | [place] | [phone] | | [facility] | | [address] | | | - LABORATORY | | | | + + + + + documented in this encounter Visit Diagnoses + + | Diagnosis | + + | Urinary tract infection without hematuria, site unspecified | + + documented in this encounter"
--- OUTSIDE RECORDS SUMMARY | ~2019-10-23 | XMS | Encounter Summary ---
Demographics + + + | Address | [address] | | | [place] [address] | + + + | Home Phone [...] Author | [facility] | | | and Rainerana | + + + | Organization | [facility] [...] [place], [place] | | | | | [address] | | + + + + + | Jelena Hill | ECON | [place] | | | | | [address] | | + + + + + Care Team Providers + +------+ + | Care Nut Sifter Name | Role | Phone | + [...] Description | +--------+--------+ + + + | 08/24/ | Refill | [facility] | Ivy Sun | Medication Refill | | 2019 | | MEDICINE [place] | Rishabh, JUSTYN [address] | | | | | [address] | [place] | | | | | [place] | [address] | | | | | [address] | | | | | | [phone] | | | +--------+--------+ + + + [...] [place] | | | | | | [address] | | | | | | | | +--------+---------+ + + + documented as of this encounter Visit Diagnoses Not on filedocumented in this encounter"
--- OUTSIDE RECORDS SUMMARY | ~2019-10-23 | XMS | Encounter Summary ---
Demographics + + + | Address | [address] | | | [place] [address] | + + + | Home Phone [...] Author | [facility] | | | and Rainerana | + + + | Organization | [facility] [...] [place], [place] | | | | | [address] | | + + + + + | Jelena Hill | ECON | [place] | | | | | [address] | | + + + + + Care Team Providers + +------+ + | Care Waste Recycler Name | Role | Phone | + +------+ + | Ivy Sun | PCP | | + +------+ + Encounter Details +--------+ + + + + | Date | Type | Department | Care Team | Description | +--------+ + + + + | 02/23/ | Hospital | [facility] | Ivy Sun | | | 2010 | Encounter | MED CTR XRAY [address] | L, ASSISTANT PROFESSOR OF ANTHROPOLOGY [address] | | | | | [place] | [address]VE [place], [place] | | | | | [place] [address] | [address] | | | | | [phone] | | | +--------+ + + + [...] 2019 | Visit | | L, JUSTYN [address] | | | | | | [place] | | | | | | [address] | | | | | | | | +--------+---------+ + + + documented as of this encounter Procedures + +--------+ + + + | Procedure Name | Priori | Date/Time | Associated Diagnosis | Comments | | | ty | | | | + +--------+ + + + | XR ANKLE RIGHT 3 + | | 02/23/2011 | | Results for this | | VW | | 10:52 AM | | procedure are in the | | | | PDT | | results section. | + +--------+ + + + documented in this encounter Results XR Ankle Right 3 + Vw (02/23/2011 10:52 AM PDT) + + | Specimen | + + | | + + + + + | Narrative | Performed At | + + + | [facility] Diagnostic Imaging Department | [facility] | | [address] | [facility] | | RIGHT ANKLE CLINICAL | DIAG IMG | | HISTORY: FALL AT HOME. PAIN AND SWELLING. FINDINGS: AP, | | | lateral, and oblique views of the ankle show no fracture or bony | | | destructive change. Joint relationships are normal at the ankle. | | | No radiographic soft tissue changes are seen. Incidental | | | note is made of advanced degenerative changes in the mid foot, | | | specifically at the metatarsal-tarsal joint line. This can be seen | | | in cases of tarsal coalition, which is not defined on this | | | examination. IMPRESSION: 1. DEGENERATIVE CHANGES IN THE | | | MID FOOT DISCUSSED ABOVE. THIS MAY RELATE TO TARSAL COALITION, | | | NOT DEFINED ON THIS EXAM. 2. NO ACUTE ABNORMALITY OF THE | | | ANKLE. Dictated Date/Time: 02/23/2011 14:49 Transcribed | | | Date/Time: 02/23/2011 14:56 Research Program Assistant: | | | <Electronically Signed by Yosvany Reeves MD> 02/24/11 0812 | | + + + + + | Procedure Note | + + | Nic Sheffield Conversion - 12/04/2013 2:49 PM [facility] | | Diagnostic Imaging Department | | [address] | | | | | | | | RIGHT ANKLE | | | | CLINICAL HISTORY: FALL AT HOME. PAIN AND SWELLING. | | | | FINDINGS: AP, lateral, and oblique views of the ankle show no fracture or bony | | destructive | | change. Joint relationships are normal at the ankle. No radiographic soft | | tissue changes are seen. | | | | Incidental note is made of advanced degenerative changes in the mid foot, | | specifically at the | | metatarsal-tarsal joint line. This can be seen in cases of tarsal coalition, | | which is not defined on this | | examination. | | | | IMPRESSION: | | 1. DEGENERATIVE CHANGES IN THE MID FOOT DISCUSSED ABOVE. THIS MAY | | RELATE TO TARSAL COALITION, NOT DEFINED ON THIS EXAM. | | | | 2. NO ACUTE ABNORMALITY OF THE ANKLE. | | | | Dictated Date/Time: 02/23/2011 14:49 | | Transcribed Date/Time: 02/23/2011 14:56 | | Research Program Assistant: | | <Electronically Signed by Yosvany Reeves MD> 02/24/11 0812 | + + + +---------+ + + [...]
--- OUTSIDE RECORDS SUMMARY | ~2019-10-23 | XMS | Encounter Summary ---
Demographics + + + | Address | [address] | | | [place] [address] | + + + | Home Phone [...] | [facility] | | | and [place]ainer[place] | + + + | Organization | [facility] | | | and [...] [place], [place] | | | | | [address] | | + + + + + | Jelena Hill | ECON | [place] | | | | | [address] | | + + + + + Care Team Providers + +------+ + | Care Lead Java Programmer Name | Role | Phone | + +------+ + | Ivy Sun | PCP | | + +------+ + Encounter Details +--------+ + + + + | Date | Type | Department | Care Team | Description | +--------+ + + + + | 04/12/ | Abstract | [facility] | Ivy Sun | | | 2015 | | [facility] | L, PRODUCT CONTROLLER [address] | | | | | [address] | [address] [place] | | | | | [place] | [address] | | | | | [address] | | | | | | [phone] | | | +--------+ + + + [...] + documented as of this encounter Progress Nayeli Pierce RN - 04/12/2016 8:45 AM PDTReceived most recent Mammogram results from [facility] 04/10/2016. documented in this encounter Plan of Treatment [...] [place] | | | | | | [address] | | | | | | | | +--------+---------+ + + + documented as of this encounter Procedures + +--------+ + + + | Procedure Name | Priori | Date/Time | Associated Diagnosis | Comments | | | ty | | | | + +--------+ + + + | ANGELINA EXTERNAL IMAGE | Routin | 04/10/2016 | | Results for this | | | e | | | procedure are in the | | | | | | results section. | + +--------+ + + + documented in this encounter Results ANGELINA External Image (04/10/2016) + + + + + + | [...] Resulting Agency Comment | + + | [facility] | + + + +---------+ + + | Performing | Address | City/State/Zipcode | Phone Number | | Organization | | | | + +---------+ + + | EXTERNAL LAB | | | | + +---------+ + + documented in this encounter Visit Diagnoses Not on filedocumented in this encounter"
--- OUTSIDE RECORDS SUMMARY | ~2019-10-23 | XMS | Encounter Summary ---
Demographics + + + | Address | [address] | | | [place] [address] | + + + | Home Phone | | + + + | Preferred Language | Unknown | + + + | Marital Status | Single | + + + | Restorationist Affiliation | 1077 | + + + | Race | Unknown | + + + | Ethnic Group | Unknown | + + + Author + + + | Author | [facility] | | | and [place] | + + + | Organization | [facility] [...] [place], [place] | | | | | [address] | | + + + + + | Jelena Hill | ECON | [place] | | | | | [address] | | + + + + + Care Team Providers + +------+ + | Care Finance Effectiveness Manager Name | Role | Phone | [...] + + | 01/01/ | Telephone | [facility] | Ivy Sun | Medication Prior | | 2018 | | [facility] [place] | JUSTYN Keating [address] | Authorization | | | | [address] | [address]VE [place], [place] | (Paroxetine) | | | | [place], [place] | [address] | | | | | [address] | | | | | | [phone] | | | +--------+ + + + [...] [place] | | | | | | [id number] | | | | | | | | +--------+---------+ + + + documented as of this encounter Visit Diagnoses Not on filedocumented in this encounter"
--- OUTSIDE RECORDS SUMMARY | ~2019-10-23 | XMS | Encounter Summary ---
Demographics + + + | Address | [address] | | | [place] [address] | + + + | Home Phone | | + + + | Preferred Language | Unknown | + + + | Marital Status | Single | + + + | Congregation Affiliation | 1077 | + + + | Race | Unknown | + + + | Ethnic Group | Unknown | + + + Author + + + | Author | [facility] | | | and [place] | + + + | Organization | 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 Prn | | | 13 | 3 | | creamIndications: | itching | | | | | | Itching | | | | | | + [...] [place] | | | | | | [address] | | | | | | | | +--------+---------+ + + + documented as of this encounter Procedures + +--------+ + + + | Procedure Name | Priori | Date/Time | Associated Diagnosis | Comments | | | ty | | | | + +--------+ + + + | MAGNESIUM | Routin | 05/12/2013 | | Results for this | | | e | 6:41 PM | | procedure are in the | | | | PDT | | results section. | + +--------+ + + + | URINALYSIS WITH | Routin | 05/12/2013 | | Results for this | | MICROSCOPIC IF | e | 3:11 PM | | procedure are in the | | INDICATED | | PDT | | results section. | + +--------+ + + + | URINALYSIS WITH | Routin | 05/12/2013 | Hematuria | Results for this | | MICROSCOPIC IF | e | 3:11 PM | | procedure are in the | | INDICATED | | PDT | | results section. | + +--------+ + + + | VERNON MICROSCOPIC, | Routin | 05/12/2013 | | Results for this | | REFLEX | e | 3:11 PM | | procedure are in the | | | | PDT | | results section. | + +--------+ + + + | GREGORY JUNIOR, | Routin | 05/12/2013 | | Results for this | | REFLEX | e | 3:11 PM | | procedure are in the | | | | PDT | | results section. | + +--------+ + + + | LIPID PROFILE | Routin | 05/12/2013 | | Results for this | | | e | 10:39 AM | | procedure are in the | | | | PDT | | results section. | + +--------+ + + + | HEMOGLOBIN A1C | Routin | 05/12/2013 | | Results for this | | | e | 10:39 AM | | procedure are in the | | | | PDT | | results section. | + +--------+ + + + | COMPREHENSIVE | Routin | 05/12/2013 | | Results for this | | METABOLIC PANEL | e | 10:39 AM | | procedure are in the | | | | PDT | | results section. | + +--------+ + + + | LIPID PROFILE | Routin | 05/12/2013 | Hyperlipidemia | Results for this | | | e | 10:17 AM | | procedure are in the | | | | PDT | | results section. | + +--------+ + + + | MAGNESIUM | Routin | 05/12/2013 | Leg cramps | Results for this | | | e | 10:17 AM | | procedure are in the | | | | PDT | | results section. | + +--------+ + + + | HEMOGLOBIN A1C | Routin | 05/12/2013 | Impaired fasting | Results for this | | | e | 10:17 AM | glucose | procedure are in the | | | | PDT | | results section. | + +--------+ + + + | COMPREHENSIVE | Routin | 05/12/2013 | HYPERTENSION, | Results for this | | METABOLIC PANEL | e | 10:17 AM | CONTROLLED | procedure are in the | | | | PDT | Hyperlipidemia | results section. | + +--------+ + + + documented in this encounter Results Magnesium (05/12/2013 6:41 PM PDT) + +-------+ + + + | Component | Value | Ref Range | Performed | Pathologist | | | | | At | Signature | + +-------+ + + + | Magnesium | 2.2 | 1.8 - 2.5 mg/dL | [facility] | | | | [...] + | [facility] | [address] | [place] | [phone] | | [facility] | | [address] | | | - LABORATORY | | | | + + + + + | [facility] | [address] | [place] | | | [facility] | | [address] | | | - LABORATORY | | | | + + + + + UA, Microscopic, Reflex (05/12/2013 3:11 PM PDT) + + + + + + | Component | Value | Ref Range | Performed | Pathologist | | | | | At | Signature | + + + + + + | WBC UA | 0-5 | 0 - 5 /hpf | [facility] | | | | [...] + + + + | SQUAMOUS | MANY (H) | FEW /hpf | [facility] | | | EP[facility] | | | [facility] | | | UA | | | MEDICAL | | | | | | CENTER - | | | | | | LABORATORY | | + + + + + + | BACTERIA UA | FEW | NONE /hpf | [facility] | | | | | | [facility] | | | | | | MEDICAL | | | | | | CENTER - | | | | | | LABORATORY | | + + + + + + | Culture | NO | | [facility] | | | Indicated | | | [facility] | | [...] + | [facility] | [address] | [place] | [phone] | | [facility] | | [address] | | | - LABORATORY | | | | + + + + + | [facility] | [address] | [place] | | | [facility] | | [address] | | | - LABORATORY | | | | + + + + + Urinalysis with Microscopic if Indicated (05/12/2013 3:11 PM PDT) + + + + + [...] + + + + | Clarity | HAZY | | [facility] | | | | [...] + + + + | Specific | >=1.030 | 1.001 - 1.030 | [facility] | | | [place] | | | [facility] | | | | | | MEDICAL | | | | | | CENTER - | | | | | | LABORATORY | | + + + + + + | Blood, | MODERATE | NEGATIVE | [facility] | | | [...] + + + + | Leukocyte | NEGATIVE | NEGATIVE | [facility] | | | Esterase, | | | [facility] | | | Urine | | | MEDICAL | | | | | | CENTER - | | | | | | LABORATORY | | + + + + + + | MICROSCOPIC | YES | | [facility] | | | ? | | | [facility] | | [...] [address] | [place] | [phone] | | [facility] | | [address] | | | - LABORATORY | | | | + + + + + | [facility] | [address] | [place] | | | [facility] | | [address] | | | - LABORATORY | | | | + + + + + UA, Microscopic, Reflex (05/12/2013 3:11 PM PDT) + + + + + + | Component | Value | Ref Range | Performed | Pathologist | | | | | At | Signature | + + + + + + | WBC UA | 0-5 | 0 - 5 /hpf | [facility] | | | | [...] + + + + | SQUAMOUS | MANY (A) | FEW /hpf | [facility] | | | EPITHELIAL | | | [facility] | | | UA | | | MEDICAL | | | | | | CENTER - | | | | | | LABORATORY | | + + + + + + | BACTERIA UA | FEW | NONE /hpf | [facility] | | | | | | [facility] | | | | | | MEDICAL | | | | | | CENTER - | | | | | | LABORATORY | | + + + + + + | Culture | NO | | [facility] | | | Indicated | | | [facility] | | [...] + | [facility] | [address] | [place] | [phone] | | [facility] | | [address] | | | - LABORATORY | | | | + + + + + | [facility] | [address] | [place] | | | [facility] | | [address] | | | - LABORATORY | | | | + + + + + Urinalysis with Microscopic if Indicated (05/12/2013 3:11 PM PDT) + + + + + [...] + + + + | Clarity | HAZY | | [facility] | | | | [...] + + + + | Specific | >=1.030 | 1.001 - 1.030 | [facility] | | | [place] | | | [facility] | | | | | | MEDICAL | | | | | | CENTER - | | | | | | LABORATORY | | + + + + + + | Blood, | MODERATE | NEGATIVE | [facility] | | | [...] + + + + | Leukocyte | NEGATIVE | NEGATIVE | [facility] | [address] | [place] | [phone] | | [facility] | | [address] | | | - LABORATORY | | | | + + + + + | [facility] | [address] | [place] | | | [facility] | | [address] | | | - LABORATORY | | | | + + + + + Hemoglobin A1C (05/12/2013 10:39 AM PDT) + +-------+ + + + | Component | Value | Ref Range | Performed | Pathologist | | | | | At | Signature | + +-------+ + + + | Hemoglobin | 5.7 | 4.3 - 5.8 % | [facility] [...] + | [facility] | [address] | [place] | [phone] | | [facility] | | [address] | | | - LABORATORY | | | | + + + + + | [facility] | [address] | [place] | | | [facility] | | [address] | | | - LABORATORY | | | | + + + + + Lipid Profile (05/12/2013 10:39 AM PDT) + + + + + + | Component | Value | Ref Range | Performed | Pathologist | | | | | At | Signature | + + + + + + | Triglycerid | 62 | 35 - 160 mg/dL | [facility] | | | es | | | [facility] | | | | | | MEDICAL | | | | | | CENTER - | | | | | | LABORATORY | | + + + + + + | Cholesterol | 154 | 150 - 200 mg/dL | [facility] | | | | | | [facility] | | | | | | MEDICAL | | | | | | CENTER - | | | | | | LABORATORY | | + + + + + + | HDL | 59 | 29 - 89 mg/dL | [facility] | | | | | | [facility] | | | | | | MEDICAL | | | | | | CENTER - | | | | | | LABORATORY | | + + + + + + | LDL, | 83 | <130 mg/dL | [facility] | | | Calculated | | | [facility] | | | | | | MEDICAL | | | | | | CENTER - | | | | | | LABORATORY | | + + + + + + | Chol/HDL | 2.6Comment: | | [facility] | | | Ratio [...] | + + + + + | [facility] | [address] | [place], [place] | [phone] | | [facility] | | [address] | | | - LABORATORY | | | | + + + + + | [facility] | [address] | [place], [place] | | | [facility] | | [address] | | | - LABORATORY | | | | + + + + + Comprehensive Metabolic Panel (05/12/2013 10:39 AM PDT) + + + + + + | Component | Value | Ref Range | Performed | Pathologist | | | | | At | Signature | + + + + + + | Glucose | 111 (H) | 70 - 109 mg/dL | [...] + + + + | Alkaline | 91 | 40 - 110 IU/L | [facility] | | | Phosphatase | | | [facility] | | | | | | MEDICAL | | | | | | CENTER - | | | | | | LABORATORY | | + + + + + + | AST | 30 | 10 - 42 IU/L | [facility] | | | | | | [facility] | | | | | | MEDICAL | | | | | | CENTER - | | | | | | LABORATORY | | + + + + + + | ALT | 25 | 6 - 45 IU/L | [facility] | | | | | | [facility] | | | | | | MEDICAL | | | | | | CENTER - | | | | | | LABORATORY | | + + + + + + | Bilirubin | 0.7 | 0.2 - 1.0 mg/dL | [facility] | | | Total | | | [facility] | | | | | | MEDICAL | | | | | | CENTER - | | | | | | LABORATORY | | + + + + + + | Total | 6.6 | 6.0 - 7.8 gm/dL | [facility] | | | Protein | | | [facility] | | | | | | MEDICAL | | | | | | CENTER - | | | | | | LABORATORY | | + + + + + + | Albumin | 3.3 | 3.2 - 5.0 gm/dL | [facility] | | | | | | [facility] | | | | | | MEDICAL | | | | | | CENTER - | | | | | | LABORATORY | | + + + + + + | BUN | 10 | 7 - 18 mg/dL | [facility] | | | | | | [facility] | | | | | | MEDICAL | | | | | | CENTER - | | | | | | LABORATORY | | + + + + + + | Creatinine | 0.85 | 0.60 - 1.30 | [facility] | | | | | mg/dL | [facility] | | | | | | MEDICAL | | | | | | CENTER - | | | | | | LABORATORY | | + + + + + + | Estimated | >60Comment: For | >60 mL/min/A | [facility] | | | GFR | -Americans, | | [facility] | | | | please multiply the [...] + + + + | BUN/Creatin | 11.8 (L) | 12 - 20 | [facility] | | | ine Ratio | | | [facility] | | | | | | MEDICAL | | | | | | CENTER - | | | | | | LABORATORY | | + + + + + + | Na | 141 | 136 - 149 mEq/L | [facility] [...] + + + + | Cl | 107 | 98 - 109 mEq/l | [facility] | | | | | | [facility] | | | | | | MEDICAL | | | | | | CENTER - | | | | | | LABORATORY | | + + + + + + | CO2 | 28 | 24 - 31 mEq/L | [facility] | | | | | | [facility] | | | | | | MEDICAL | | | | | | CENTER - | | | | | | LABORATORY | | + + + + + + | Anion Gap | 10.0 | 6.0 - 17.0 | [facility] | | | | | | [facility] [...] [address] | [place] | [phone] | | [facility] | | [address] | | | - LABORATORY | | | | + + + + + | [facility] | [address] | [place] | | | [facility] | | [address] | | | - LABORATORY | | | | + + + + + Magnesium (05/12/2013 10:17 AM PDT) + +-------+ + + + | Component | Value | Ref Range | Performed | Pathologist | | | | | At | Signature | + +-------+ + + + | Magnesium | 2.2 | 1.8 - 2.5 mg/dL | [facility] | | | | [...] + | [facility] | [address] | [place], [place] | [phone] | | [facility] | | [address] | | | - LABORATORY | | | | + + + + + | [facility] | [address] | [place], [place] | | | [facility] | | [address] | | | - LABORATORY | | | | + + + + + Hemoglobin A1C (05/12/2013 10:17 AM PDT) + +-------+ + + + | Component | Value | Ref Range | Performed | Pathologist | | | | | At | Signature | + +-------+ + + + | Hemoglobin | 5.7 | 4.3 - 5.8 % | [facility] | | | A1c | | | [facility] | | [...] + | [facility] | [address] | [place], [place] | [phone] | | [facility] | | [address] | | | - LABORATORY | | | | + + + + + | [facility] | [address] | [place], [place] | | | [facility] | | [address] | | | - LABORATORY | | | | + + + + + Lipid Profile (05/12/2013 10:17 AM PDT) + + + + + + | Component | Value | Ref Range | Performed | Pathologist | | | | | At | Signature | + + + + + + | Triglycerid | 62 | 35 - 160 mg/dL | [facility] | | | es | | | [facility] | | | | | | MEDICAL | | | | | | CENTER - | | | | | | LABORATORY | | + + + + + + | Cholesterol | 154 | 150 - 200 mg/dL | [facility] | | | | | | [facility] | | | | | | MEDICAL | | | | | | CENTER - | | | | | | LABORATORY | | + + + + + + | HDL | 59 | 29 - 89 mg/dL | [facility] | | | | | | [facility] | | | | | | MEDICAL | | | | | | CENTER - | | | | | | LABORATORY | | + + + + + + | LDL, | 83 | <130 mg/dL | [facility] | | | Calculated | | | [facility] | | | | | | MEDICAL | | | | | | CENTER - | | | | | | LABORATORY | | + + + + + + | Chol/HDL | 2.6Comment: | | [facility] | | | Ratio | | | [facility] | | | | | | MEDICAL | | | | -------RISK CATEGORY: | | CENTER - | | | | CHOL/HDL * T.CHOL * LDL | | LABORATORY | | | | CHOL * HDL CHOL | | | | | | | | | | | | RATIODESIRABLE: (M) | | | | | | 4.0-6.7 <200 | | | | | | <130 >50 | | | | | | (F) | | | | | | 3.7-4.2BORDERLINE:(M) | | | | | | 6.7-7.4 200-240 | | | | | | 130-160 <45 | | | | | | (F) | | | | | | 4.2-5.5HIGH RISK: (M) | | | | | [...] + + | Performing | Address | City/[facility]/Zipcode | Phone Number | | Organization | | | | + + + + + | [facility] | [address] | [place], [place] | [phone] | | [facility] | | [address] | | | - LABORATORY | | | | + + + + + | [facility] | [address] | [place], [place] | | | [facility] | | [address] | | | - LABORATORY | | | | + + + + + Comprehensive Metabolic Panel (05/12/2013 10:17 AM PDT) + + + + + + | Component | Value | Ref Range | Performed | Pathologist | | | | | At | Signature | + + + + + + | Glucose | 111 (H) | 70 - 109 mg/dL | [...] | | | | mg/dL | [facility] | | | | | | MEDICAL | | | | | | CENTER - | | | | | | LABORATORY | | + + + + + + | Alkaline | 91 | 40 - 110 IU/L | [facility] | | | Phosphatase | | | [facility] | | | | | | MEDICAL | | | | | | CENTER - | | | | | | LABORATORY | | + + + + + + | AST | 30 | 10 - 42 IU/L | [facility] | | | | | | [facility] | | | | | | MEDICAL | | | | | | CENTER - | | | | | | LABORATORY | | + + + + + + | ALT | 25 | 6 - 45 IU/L | [facility] | | | | | | [facility] | | | | | | MEDICAL | | | | | | CENTER - | | | | | | LABORATORY | | + + + + + + | Bilirubin | 0.7 | 0.2 - 1.0 mg/dL | [facility] | | | Total | | | [facility] | | | | | | MEDICAL | | | | | | CENTER - | | | | | | LABORATORY | | + + + + + + | Total | 6.6 | 6.0 - 7.8 gm/dL | [facility] | | | Protein | | | [facility] | | | | | | MEDICAL | | | | | | CENTER - | | | | | | LABORATORY | | + + + + + + | Albumin | 3.3 | 3.2 - 5.0 gm/dL | [facility] | | | | | | [facility] | | | | | | MEDICAL | | | | | | CENTER - | | | | | | LABORATORY | | + + + + + + | BUN | 10 | 7 - 18 mg/dL | [facility] | | | | | | [facility] | | | | | | MEDICAL | | | | | | CENTER - | | | | | | LABORATORY | | + + + + + + | Creatinine | 0.85 | 0.60 - 1.30 | [facility] | | | | | mg/dL | [facility] | | | | | | MEDICAL | | | | | | CENTER - | | | | | | LABORATORY | | + + + + + + | Estimated | >60Comment: For | >60 mL/min/A | [facility] | | | GFR | -Americans, | | [facility] | | | | please multiply the [...] + + + + | BUN/Creatin | 11.8 (L) | 12 - 20 | [facility] | | | ine Ratio | | | [facility] | | | | | | MEDICAL | | | | | | CENTER - | | | | | | LABORATORY | | + + + + + + | Na | 141 | 136 - 149 mEq/L | [facility] [...] + + + + | Cl | 107 | 98 - 109 mEq/l | [facility] | | | | | | [facility] | | | | | | MEDICAL | | | | | | CENTER - | | | | | | LABORATORY | | + + + + + + | CO2 | 28 | 24 - 31 mEq/L | [facility] | | | | | | [facility] | | | | | | MEDICAL | | | | | | CENTER - | | | | | | LABORATORY | | + + + + + + | Anion Gap | 10.0 | 6.0 - 17.0 | [facility] | | | | | [...] [address] | [place] | [phone] | | [facility] | | [address] | | | - LABORATORY | | | | + + + + + | [facility] | [address] | [place] | | | [facility] | | [address] | | | - LABORATORY | | | | + + + + + documented in this encounter Visit Diagnoses + + | Diagnosis | + + | HYPERTENSION, CONTROLLED Essential hypertension, benign | + + | Hyperlipidemia Other and unspecified hyperlipidemia | + + | Impaired fasting glucose | + + | Leg cramps Cramp of limb | + + | Hematuria Hematuria, unspecified | + + documented in this encounter"
--- OUTSIDE RECORDS SUMMARY | ~2019-10-23 | XMS | Encounter Summary ---
Demographics + + + | Address | [address] | | | [place] [address] | + + + | Home Phone | | + + + | Preferred Language | Unknown | + + + | Marital Status | Single | + + + | Jain Affiliation | 1077 | + + + | Race | Unknown | + + + | Ethnic Group | Unknown | + + + Author + + + | Author | [facility] | | | and Rainerana | + + + | Organization | [facility] | | | and Rainerana [...] [place], [place] | | | | | [address] | | + + + + + | Jelena Hill | ECON | [place] | | | | | [address] | | + + + + + Care Team Providers + +------+ + | Care Coil Cutter Name | Role | Phone | + +------+ + | Ivy Sun | PCP | | + +------+ + Reason for Visit + + + | Reason | Comments | + + + | Hyperlipidemia | One year follow up | + + + | Hypertension | | + + + Encounter Details +--------+---------+ + + + | Date | Type | Department | Care Team | Description | +--------+---------+ + + + | 01/26/ | Office | [facility] | Logan Wolf | Essential | | 2014 | Visit | CARDIOLOGY [address] | MD Missael [address] | hypertension | | | | [address] [place], | [address] [place] | (Primary Dx); | | | | [place] [address] | [place] [address] | Tachycardia | | | | [phone] | [phone] | | | | | | | [...] + | Blood Pressure | 102/70 | 01/26/2015 10:33 AM | [place] | | | | PDT | | + + + + + | Pulse | 120 | 01/26/2015 10:33 AM | regular | | | | PDT | | + + + + + | Temperature | - | - | | + + + + + | Respiratory Rate | 18 | 01/26/2015 10:33 AM | | | | | PDT | | + + + + + | Oxygen Saturation | - | - | | + + + + + | Inhaled Oxygen | - | - | | | Concentration | | | | + + + + + | Weight | 127 kg (280 lb) | 01/26/2015 10:33 AM | | | | | PDT | | + + + + + | Height | 170.2 cm (5' 7") | 01/26/2015 10:33 AM | | | | | PDT | | + + + + + | Body Mass Index | 43.85 | 01/26/2015 10:33 AM | | | | | PDT | | + + + + + documented in this encounter Progress Notes Logan Wolf MD - 01/26/2015 10:39 AM PDTFormatting of this note might be differe nt from the original. 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 Since our last visit, anuja shah has retired from her job a few months ago. She admits that she successfully quit smoking , but admits to being fairly sedentary and not engaging in any regular activity. Several mon ths ago, she was started on therapy with Requip for restless leg syndrome. At the time of he r episodes of syncope several years ago, she had experienced sudden onset of flushing and heat sensation washing over her and states that people felt that she was cool and clammy to the touch. She felt lightheaded but did not experience osman syncope. A similar episode occurred once more, and patient was advised to seek further medical evaluation. She denies any known history of cardiac problems, including no history of arrhythmia, myocardial infarction, heart failure, stroke or diabetes. She has already undergone significant, noninvasive imaging including transthoracic echocardiography, myocardial stress perfusion imaging and 24-hour Holter monitor, the complete results of which have been dictated separately and are summarized below. No significant or obvious findings have been detected thus far on the above-mentioned tests. The patient's baseline ECG reveals a right bundle branch block pattern ECG which has been previously described on her electrocardiograms. The patient admits to having poor sleep hygiene, especially in context of her sustainability manager work that she has done for over 20 years and does not engage in any regular exercise or activity. She has not had any exertional symptoms such as chest discomfort or shortness of breath or any complaints of palpitations. She has no history of osman syncope in the past and has been clinically stable since her episodes. 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) RESTLESS LEGS SYNDROME (ICD-333.94) OBSTRUCTIVE SLEEP APNEA (ICD-327.23) VITAMIN D DEFICIENCY (ICD-268.9) COLONIC POLYPS, ADENOMATOUS, HX OF (ICD-V12.72) OSTEOPENIA (ICD-733.90) ROUTINE GYNECOLOGICAL EXAMINATION (ICD-V72.31) OBESITY (ICD-278.00) INSOMNIA UNSPECIFIED (ICD-780.52) ANXIETY (ICD-300.00) PAP SMEAR, ABNORMAL (ICD-795.00) OSTEOPENIA (ICD-733.90) SEBORRHEIC KERATOSIS (ICD-702.19) PERS HX TOBACCO USE PRESENTING [facility] (ICD-V15.82) Current Meds Prior To This Update ASPIRIN ADULT LOW STRENGTH 81 MG TBEC (ASPIRIN) one by mouth daily LISINOPRIL 20 MG TABS (LISINOPRIL) 1 by mouth qam for high blood pressure AMBIEN 10 MG TABS (ZOLPIDEM TARTRATE) Take half tablet by mouth at bedtime PRN PAROXETINE HCL 40 MG TABS (PAROXETINE HCL) Take one tablet by mouth every day CLODERM 0.1 % CREA (CLOCORTOLONE PIVALATE) 1 DAUB TOPICALLY TWICE EACH DAY VITAMIN D 2000 UNIT TABS (CHOLECALCIFEROL) one by mouth daily FOSAMAX 70 MG TABS (ALENDRONATE SODIUM) 1 by mouth once weekly SIMVASTATIN 10 MG TABS (SIMVASTATIN) 1 by mouth qd * Medication list was verified with patient or authorized sales representative groceries. Past, Family, and Social History Past History (reviewed - no changes required): [facility] no rheumatic fever, TB, or Polio [id number] COLONIC POLYPS, ADENOMATOUS, HX OF (ICD-V12.72) - 06/02 OSTEOPENIA (ICD-733.90) ANKLE SPRAIN, RIGHT (ICD-845.00) ROUTINE GYNECOLOGICAL EXAMINATION (ICD-V72.31) OBESITY (ICD-278.00) BRONCHITIS, MILD (ICD-490) INSOMNIA (ICD-780.52) ANXIETY (ICD-300.00) HYPERLIPIDEMIA (ICD-272.4) PAP SMEAR, ABNORMAL (ICD-795.00) HYPERTENSION, CONTROLLED (ICD-401.1) SEBORRHEIC KERATOSIS (ICD-702.19) Depression Right Foot Drop from laminectomy in distant past Left Rotator Cuff Injury Osteoporosis, L3 - 09/2000 Restless Leg Syndrome - 05/2003 Osteoarthritis, Left Knee Abnormal EKG Menopausal - 2003 eczema hearing loss-wears hearing aids -2010 Tobacco Abuse Surgical History (reviewed - no changes required): Laminal Discectomy, L5-S1 - 1991 Gastroplasty - 1985 Cholecystectomy - 1986 Bunionectomy, Right w/Screws - 1993 hammertoe repairs of 2,3 and 5 mid-foot fusion surgery Right Fibula Hairline Fx - 06/1998 Right Small Finger Fx Bunionectomy - 10/23/2000 Endometria biopsy - 07/2002 Arthroscopy, Left Knee - 09/16/2006 Family History (reviewed - no changes required): Mother: 77, Dementia Alzheimer's, Secondary to HTN Mgf: 80's, Heart Dz Mgm: 56, Pancreatitis Father: 83, Triple Cardiac Bypass, 3-4 VT's, Pacemaker, Bilat CEA, HTN, diabetes, snore Pgf: 82, Stroke Pgm: 72, Heart Dz Siblings: Brother alive, Sister alive Social History (reviewed - no changes required): Born in [place] Education: two degrees in medical records and nursing. Single:Lives with Aleks MARKS in [facility] at the correctional facility for 21 years lives with boyfriend, who is retired no children Review of Systems Constitutional: Denies: fevers, chills, fatigue, weight loss, sudden weight gain. Eyes: Denies: blurring, double vision, vision loss, sudden vision loss. Ears/Nose/Throat: Denies: tinnitus, decreased hearing, nosebleeds, recent dental issues. Cardiovascular: Complains of: presyncope, claudication. Denies: chest pains, palpitations, syncope, dizziness, orthopnea, PND, peripheral edema, DVT, vein problems, Raynaud's syndrome , hair loss. Respiratory: Complains of: dyspnea with exertion, snoring. Denies: cough, dyspnea at rest, excessive sputum, hemoptysis, wheezing, sleep apnea. Gastrointestinal: Complains of: polyps. Denies: nausea, vomiting, diarrhea, constipation, a bdominal pain, melena, reflux, hemorrhoids. Genitourinary: Complains of: increased urinary frequency, incontinence, nocturia. Denies: h ematuria, dysuria, urinary hesitancy. Musculoskeletal: Denies: back pain, arthritis, muscle weakness, myalgias. Skin: Denies: rash, itching, suspicious lesions. Neurologic: Complains of: balance problems. Denies: transient paralysis, paresthesias, seiz ures, tremors, memory impairment, depression, sciatica, headache, anxiety. Heme/Lymphatic: Denies: abnormal bruising, bleeding, enlarged lymph nodes. Endocrine: Denies: cold intolerance, heat intolerance, polydipsia, polyuria. Allergic/Immunologic: Denies: urticaria, hay fever, persistent infections, HIV exposure. Allergies: This patient has no known allergies or adverse reactions. Vital Signs Ht: 67 inches Wt: 280 pounds (up 12 pounds since last visit) Pulse: 102 bpm, irregular Re sp: 16 Blood Pressure #1: 102/70 mmHg, adult cuff Calculations Body Mass Index: 44 Physical Exam Constitutional: She is oriented to person, place, and time. She appears well-developed and well-nourished. HENT: Head: Normocephalic. Eyes: No scleral icterus. Neck: Normal carotid pulses and no JVD present. Carotid bruit is not present. Cardiovascular: Regular rhythm, S1 normal, S2 normal, normal heart sounds, intact distal pu lses and normal pulses. Tachycardia present. PMI is not displaced. Exam reveals no gallop and no midsystolic click. No murmur heard. Pulses: Carotid pulses are 2+ on the right side, and 2+ on the left side. Femoral pulses are 2+ on the right side, and 2+ on the left side. Dorsalis pedis pulses are 2+ on the right side, and 2+ on the left side. Posterior tibial pulses are 2+ on the right side, and 2+ on the left side. Pulmonary/Chest: Effort normal and breath sounds normal. No accessory muscle usage. No resp iratory distress. She has no wheezes. She has no rhonchi. She has no rales. Abdominal: Soft. Normal aorta and bowel sounds are normal. She exhibits no abdominal bruit. There is no hepatosplenomegaly. There is no tenderness. Morbidly obese Musculoskeletal: She exhibits no edema. Neurological: She is alert and oriented to person, place, and time. Gait normal. Skin: Skin is warm and dry. No cyanosis. Nails show no clubbing. Psychiatric: She has a normal mood and affect. Her mood appears not anxious. She does not e xhibit a depressed mood. Vitals reviewed. LAB RESULTS: LIPID Lab Results Component Value Date CHOL 154 05/12/2013 TRIG 62 05/12/2013 HDL 59 05/12/2013 LDL 83 05/12/2013 CHOLHDL 2.6 04/06/2014 LDLEX 61 04/06/2014 HDLEX 53.4 04/06/2014 TRIGEX 116 04/06/2014 CHOLEX 138 04/06/2014 CHEMISTRY Lab Results Component Value Date GLU 111* 07/06/2014 NA 134 07/06/2014 K 4.3 07/06/2014 CL 102 07/06/2014 CO2 27 07/06/2014 CALCIUM 9.4 07/06/2014 ALKPHOS 100 07/06/2014 AST 27 10/14/2013 ALT 23 10/14/2013 BILITOT 0.4 07/06/2014 CREA 0.83 10/14/2013 BUN 21 07/06/2014 EGFR >60 10/14/2013 EGFREX 66 11/09/2014 CREEX 0.87 11/09/2014 HEMATOLOGY Lab Results Component Value Date WBC 7.0 06/03/2014 HGB 13.7 06/03/2014 HCT 42.2 06/03/2014 PLT 295 06/03/2014 Test and Lab Results The EKG done on 07/10/2012 shows normal sinus rhythm, RBBB, unchanged c/w 06/08 ECG. I personally reviewed the Echo report of 06/16/2012. LVEF 65%, mild AI/TR, mild Ao enlarge ment. I personally reviewed Nuclear Stress report of 06/25/2012. LVEF 80%, no ischemia. I personally reviewed the Holter report of 06/16/2012. NSR, mean HR 96, rare ectopy, no si g rand. Electrocardiogram today reviewed by me shows sinus tachycardia, heart rate 112, RBBB, uncha nged from previous tracing one year ago. Echocardiogram November 2013 and temperature is 90 shows sinus rhythm, heart rate near 100, LVEF 69%, mild left atrial enlargement, mild aortic, mitral, tricuspid insufficiency, grade 1 LV diastolic dysfunction, mild aortic root enlargement. HbA1c 5.5, previously: 6.2 ASSESSMENT AND PLAN 1. NEAR SYNCOPE. Patient's extensive cardiovascular workup thus far has only been notable for right bundle branch block on ECG on 2 different occasions without any significant interval change. She also has exhibited borderline tachycardia public health representative nically even preceding therapy with Requip. Otherwise, no significant abnormalities were found. The patient does have increased risk of long-term adverse cardiovascular outcomes given her likely/presumed obstructive sleep apnea and poor sleep hygiene along with history of tobacco use, although these are not likely to be contributing factors to her recent presentation. We did discuss the importance of incorporation of routine exercise in her life, improving her sleep regimen, and aiming for modest weight loss. The patient has already minimized or eliminated caffeine from her diet, which she was indulging in, in excess and improving her hydration. Her episode certainly is consistent with a vasovagal presentation with likely good prognosis. Barring discovery of any other obvious confounders, she should return to work and be managed expectantly at least from a cardiovascular standpoint. I did discuss with the patient at length that therapy with Requip has been associated with increased risk of syncope along with hypotension. 2. MILD AORTIC ROOT ENLARGEMENT. Her recent echocardiogram did not reveal any significant c hanges. She would benefit from periodic reassessment. 3. TOBACCO CESSATION. I have congratulated the patient on stopping smoking. 4. Morbid obesity - I have asked the patient to attempt to become more active. She is com pletely sedentary as is her significant other. I appreciate the opportunity to help in the management of this patient. I will continue to see her on an annual basis or sooner if clinically indicated. CC: Ivy Sun, NEUROPSYCHOLOGIST-BC Hyperlipidemia Hypertension Review of Systems Physical Exam Constitutional: She is oriented to person, place, and time. She appears well-developed and well-nourished. HENT: Head: Normocephalic. Eyes: No scleral icterus. Neck: Normal carotid pulses and no JVD present. Carotid bruit is not present. Cardiovascular: Regular rhythm, S1 normal, S2 normal, normal heart sounds, intact distal pu lses and normal pulses. Tachycardia present. PMI is not displaced. Exam reveals no gallop and no midsystolic click. No murmur heard. Pulses: Carotid pulses are 2+ on the right side, and 2+ on the left side. Femoral pulses are 2+ on the right side, and 2+ on the left side. Dorsalis pedis pulses are 2+ on the right side, and 2+ on the left side. Posterior tibial pulses are 2+ on the right side, and 2+ on the left side. Pulmonary/Chest: Effort normal and breath sounds normal. No accessory muscle usage. No resp iratory distress. She has no wheezes. She has no rhonchi. She has no rales. Abdominal: Soft. Normal aorta and bowel sounds are normal. She exhibits no abdominal bruit. There is no hepatosplenomegaly. There is no tenderness. Morbidly obese Musculoskeletal: She exhibits no edema. Neurological: She is alert and oriented to person, place, and time. Gait normal. Skin: Skin is warm and dry. No cyanosis. Nails show no clubbing. Psychiatric: She has a normal mood and affect. Her mood appears not anxious. She does not e xhibit a depressed mood. Vitals reviewed. documented in t his encounter Plan of Treatment +--------+---------+ + + + | Date | Type | Specialty | Care Team | Description | +--------+---------+ + + + | 11/23/ | Office | Family Medicine | Ivy Sun | | | 2020 | Visit | | L, JUSTYN [address] | | | | | | [address] [place] | | | | | | [address] | | | | | | | | +--------+---------+ + + + + +------+--------+ + + | Name | Type | Priori | Associated Diagnoses | Order Schedule | | | | ty | | | + +------+--------+ + + | ECG 12 lead | ECG | Routin | Essential | Ordered: 01/26/2015 | | | | e | hypertension | | + +------+--------+ + + documented as of this encounter Procedures + +--------+ + + + | Procedure Name | Priori | Date/Time | Associated Diagnosis | Comments | | | ty | | | | + +--------+ + + + | ECG - EXTERNAL SCAN | | 01/26/2015 | | Results for this | | | | 12:00 AM | | procedure are in the | | | | PDT | | results section. | + +--------+ + + + documented in this encounter Results ECG - EXTERNAL SCAN (01/26/2015 12:00 AM PDT) + + + | Narrative | Performed At | + + + | Ordered by an | | | unspecified provider. | | + + + documented in this encounter Visit Diagnoses + + | Diagnosis | + + | Essential hypertension - Primary Unspecified essential hypertension | + + | Tachycardia Tachycardia, unspecified | + + documented in this encounter
--- OUTSIDE RECORDS SUMMARY | ~2019-10-23 | XMS | Encounter Summary ---
Demographics + + + | Address | [address] | | | [place] [address] | + + + | Home Phone [...] | Author | [facility] | | | and Rainerana | + + + | Organization | [facility] | | | and [...] [place], [place] | | | | | [address] | | + + + + + | Jelena Hill | ECON | [place] | | | | | [address] | | + + + + + Care Team Providers + +------+ + | Care Database Admin Name | Role | Phone | + [...] + + + + | 11/10/ | Telephone | [facility] | Ivy Sun | Other | | 2015 | | MEDICINE DEBRAGATTrish | [address] | | | | | [address] | [address] [place], [place] | | | | | [place], [place] | [address] | | | | | [address] | | | | | | [phone] | | | +--------+ + + + [...] [place] | | | | | | [address] | | | | | | | | +--------+---------+ + + + documented as of this encounter Visit Diagnoses Not on filedocumented in this encounter"
--- OUTSIDE RECORDS SUMMARY | ~2019-10-23 | XMS | Encounter Summary ---
Demographics + + + | Address | [address] | | | [place] [address] | + + + | Home Phone [...] Author | [facility] | | | and Rainerana | + + + | Organization | [facility] | | | [...] [place], [place] | | | | | [address] | | + + + + + | Jelena Hill | ECON | [place] | | | | | [address] | | + + + + + Care Team Providers + +------+ + | Care Lap Winding Machine Operator Name | Role | Phone | + +------+ + | Ivy Sun | PCP | | + +------+ + Encounter Details +--------+ + + + + | Date | Type | Department | Care Team | Description | +--------+ + + + + | 08/28/ | Hospital | [facility] | Ivy Sun | Essential | | 2016 | Encounter | MED CTR LABORATORY | L, FRONT DESK ADMINISTRATOR [address] | hypertension with | | | | [address] [place] | [address] [place], [place] | goal blood pressure | | | | [place], [place] | [address] | less than 130/80; | | | | [address] | | Hyperlipidemia, | | | | [phone] | | unspecified | | | | [...] [place] | | | | | | [address] | | | | | | | [...] + | [facility] | [address] | [place] | [phone] | | [facility] | | [address] | | | - LABORATORY | | [...] - 1.030 | [facility] | | | [place] | | | [facility] | | [...] [address] | [place] | [phone] | | [facility] | | [address] | | | - LABORATORY | | [...] + | [facility] | [address] | [place] | [phone] | | [facility] | | [address] | | | - LABORATORY | | [...] [address] | [place] | [phone] | | [facility] | | [address] | | | - LABORATORY | | [...] + | [facility] | [address] | [place] | [phone] | | [facility] | | [address] | | | - LABORATORY | | [...] [address] | [place] | [phone] | | [facility] | | [address] | | | - LABORATORY | | [...] [address] | [place] | [phone] | | [facility] | | [address] | | | - LABORATORY | | [...] | 1.04 | 0.60 - 1.30 | [facility] | | | | | mg/dL | [facility] | | | | | | MEDICAL | | | | | | CENTER - | | | | | | LABORATORY | | + + + + + + | eGFR if not | 53 (L)Comment: | >=60 | [facility] | | | | GLOMERULAR FILTRATION | mL/min/1.73m2 | [facility] | | | EMIRATI | RATE,ESTIMATED | | MEDICAL | | | | mL/min/1.04c6Dafp than | | CENTER - | | [...] | [address] | [place], [place] | [phone] | | [facility] | | [address] | | | - LABORATORY | | [...] [address] | [place] | [phone] | | [facility] | | [address] | | | - LABORATORY | | [...]
--- OUTSIDE RECORDS SUMMARY | ~2019-10-23 | XMS | Encounter Summary ---
Demographics + + + | Address | [address] | | | [place] [address] | + + + | Home Phone [...] | Author | [facility] | | | and Rainerana | + + + | Organization | [facility] | | [...] [place], [place] | | | | | [address] | | + + + + + | Jelena Hill | ECON | [place] | | | | | [address] | | + + + + + Care Team Providers + +------+ + | Care Regulatory Services Consultant Name | Role | Phone | [...] [address] | [address] [place], [place] | sciatica laterality | | | | [place], [place] | [address] | unspecified, | | | | [address] | | unspecified | | | | [phone] | | chronicity (Primary | | | [...] [place] | | | | | | [address] | | | | | | | [...] COMPARISON: Thoracic MRI 08/01/2016; 08/17/2015 radiographs. | [facility] | | FINDINGS: Focal levoscoliosis [...] + + | Performing | Address | City/State[facility] | Phone Number | | Organization | | | | + + + + + | [facility] | [address] | [place] | [phone] | | [facility] | | [address] | | | - IMAGING | | | | + + + + + documented in this encounter Visit Diagnoses + + | Diagnosis | + + | Midline low back pain with sciatica, sciatica laterality unspecified, unspecified | | chronicity - Primary | + + documented in this encounter"
--- OUTSIDE RECORDS SUMMARY | ~2019-10-23 | XMS | Encounter Summary ---
Demographics + + + | Address | [address] | | | [place] [address] | + + + | Home Phone | | + + + | Preferred Language | Unknown | + + + | Marital Status | Single | + + + | Anglican Affiliation | 1077 | + + + | Race | Unknown | + + + | Ethnic Group | Unknown | + + + Author + + + | Author | [facility] | | | and Rainerana | + + + | Organization | [facility] | | | [...] [place], [place] | | | | | [address] | | + + + + + | Jelena Hill | ECON | [place] | | | | | [address] | | + + + + + Care Team Providers + +------+ + | Care Switch Technician Name | Role | Phone | + +------+ + | Ivy Sun | PCP | | + +------+ + Encounter Details +--------+ + + + + | Date | Type | Department | Care Team | Description | +--------+ + + + + | 07/08/ | Hospital | [facility] | Reymundo Guillory | | | 2011 | Encounter | MED CTR SLEEP | MD Ivy [address] | | | | | [place] [address] | [place] [facility] | | | | | [place], [place] | [place] [address] | | | | | [address] | [phone] | | | | | [phone] | | | +--------+ + + + [...] | | 11 | 2 | | [address] UNITS capsule | mouth once weekly | [...] [place] | | | | | | [id number] | | | | | | | | +--------+---------+ + + + documented as of this encounter Visit Diagnoses Not on filedocumented in this encounter"
--- OUTSIDE RECORDS SUMMARY | ~2019-10-23 | XMS | Encounter Summary ---
Demographics + + + | Address | [address] | | | [place] [address] | + + + | Home Phone [...] Author | [facility] | | | and Rainerana | + + + | Organization | [facility] | [...] [place], [place] | | | | | [address] | | + + + + + | Jelena Hill | ECON | [place] | | | | | [address] | | + + + + + Care Team Providers + +------+ + | Care Pool Table Mechanic Name | Role | Phone | [...] 2014 | | [facility] [place] | L, FERRIS WHEEL OPERATOR [address] | | | | | [address] | [address] [place] | | | | | [place] | [address] | | | | | [address] | | | | | | [phone] | | | +--------+ + + + [...] [place] | | | | | | [address] | | | | | | | [...] | | | | | | | Georgian, | | | | | | External [...]
--- OUTSIDE RECORDS SUMMARY | ~2019-10-23 | XMS | Encounter Summary ---
Demographics + + + | Address | [address] | | | [place] [address] | + + + | Home Phone | | + + + | Preferred Language | Unknown | + + + | Marital Status | Single | + + + | Nondenominational Affiliation | 1077 | + + + | Race | Unknown | + + + | Ethnic Group | Unknown | + + + Author + + + | Author | [facility] | | | and Rainerana | + + + | Organization | [facility] | | [...] [place], [place] | | | | | [address] | | + + + + + | Jelena Hill | ECON | [place] | | | | | [address] | | + + + + + Care Team Providers + +------+ + | Care Cable Ferryboat Operator Name | Role | Phone | [...] 2014 | | [facility] [place] | L, VIDEO GAMES MECHANIC [address] | | | | | [address] | [address]VE [place] | | | | | [place] | [address] | | | | | [address] | | | | | | [phone] | | | +--------+ + + + [...] [place] | | | | | | [address] | | | | | | | [...] | 1.029 | | | | | [place], | | | | | | External [...]
--- OUTSIDE RECORDS SUMMARY | ~2019-10-23 | XMS | Encounter Summary ---
Demographics + + + | Address | [address] | | | [place] [address] | + + + | Home Phone [...] + + + | Author | [facility] | | | and Rainerana | + + + | Organization | [facility] | | | and Rainerana [...] [place], [place] | | | | | [address] | | + + + + + | Jelena Hill | ECON | [place] | | | | | [address] | | + + + + + Care Team Providers + +------+ + | Care Warp Drawer Name | Role | Phone | + +------+ + | Ivy Sun | PCP | | + +------+ + Reason for Visit +---------+ + | Reason | Comments | +---------+ + | Results | renal function panel | +---------+ + Encounter Details +--------+ + + + + | Date | Type | Department | Care Team | Description | +--------+ + + + + | 11/26/ | Telephone | [facility] | Ivy Sun | Results (renal | | 2017 | | [facility] | JUSTYN Keating [address] | function panel) | | | | [address] | [place] [place] | | | | | [place] | [address] | | | | | [address] | | | | | | [phone] | | | +--------+ + + + [...] [place] | | | | | | [id number] | | | | | | | | +--------+---------+ + + + documented as of this encounter Visit Diagnoses Not on filedocumented in this encounter"
--- OUTSIDE RECORDS SUMMARY | ~2019-10-23 | XMS | Encounter Summary ---
Demographics + + + | Address | [address] | | | [place] [address] | + + + | Home Phone [...] Author | [facility] | | | and Rainerana | + + + | Organization | [facility] [...] [place], [place] | | | | | [address] | | + + + + + | Jelena Hill | ECON | [place] | | | | | [address] | | + + + + + Care Team Providers + +------+ + | Care Licensed Direct Entry Midwife Name | Role | Phone | + [...] Description | +--------+--------+ + + + | 04/17/ | Refill | [facility] | Ivy Sun | Medication Refill | | 2012 | | [facility] [place] | Rishabh, JUSTYN [address] | | | | | [address] | [place], [place] | | | | | [place], [place] | [address] | | | | | [address] | | | | | | [phone] | | | +--------+--------+ + + + [...] [place] | | | | | | [address] | | | | | | | | +--------+---------+ + + + documented as of this encounter Visit Diagnoses Not on filedocumented in this encounter"
--- OUTSIDE RECORDS SUMMARY | ~2019-10-23 | XMS | Encounter Summary ---
Demographics + + + | Address | [address] | | | [place] [address] | + + + | Home Phone [...] + + + | Author | [facility] | | | and Rainerana | + + + | Organization | [facility] | [...] [place], [place] | | | | | [address] | | + + + + + | Jelena Hill | ECON | [place] | | | | | [address] | | + + + + + Care Team Providers + +------+ + | Care Grill Prep Cook Name | Role | Phone | + [...] Description | +--------+--------+ + + + | 12/23/ | Refill | [facility] | Ivy Sun | Medication Refill | | 2012 | | MEDICINE [place] | Rishabh, JUSTYN [address] | | | | | [address] | [place], [place] | | | | | [place], [place] | [address] | | | | | [address] | | | | | | [phone] | | | +--------+--------+ + + + [...] [place] | | | | | | [id number] | | | | | | | | +--------+---------+ + + + documented as of this encounter Visit Diagnoses + + | Diagnosis | + + | Insomnia - Primary Insomnia, unspecified | + + documented in this encounter"
--- OUTSIDE RECORDS SUMMARY | ~2019-10-23 | XMS | Encounter Summary ---
Demographics + + + | Address | [address] | | | [place] [address] | + + + | Home Phone [...] [facility] | | | and Rainerana | + + + | Organization | [facility] | | [...] [place], [place] | | | | | [address] | | + + + + + | Jelena Hill | ECON | [place] | | | | | [address] | | + + + + + Care Team Providers + +------+ + | Care Technical Training Instructor Name | Role | Phone | + +------+ + | Ivy Sun | PCP | | + +------+ + Reason for Visit + + + | Reason | Comments | + + + | Follow-up | 3 month follow-up Prediabetes | + + + | Foot Injury | right foot injury | + + + Encounter Details +--------+---------+ + + + | Date | Type | Department | Care Team | Description | +--------+---------+ + + + | 07/07/ | Office | [facility] | Ivy Sun | Prediabetes (Primary | | 2013 | Visit | [facility] [place] | JUSTYN Keating [address] | Dx); Right foot | | | | [address] | [address]VE [place] | injury, initial | | | | [place] | [address] | encounter; Decreased | | | | [address] | | GFR; Hypertension; | | | | [phone] | | Restless legs | +--------+---------+ + + + Social History [...] + + + | Blood Pressure | 90/68 | 07/07/2014 10:11 AM | | | | | PDT | | + + + + + | Pulse | 111 | 07/07/2014 10:11 AM | | | | | PDT | | + + + + + | Temperature | 36.5 C (97.7 F) | 07/07/2014 10:11 AM | | | | | PDT | | + + + + + | Respiratory Rate | 16 | 07/07/2014 10:11 AM | | | | | PDT | | + + + + + | Oxygen Saturation | 96% | 07/07/2014 10:11 AM | | | | | PDT | | + + + + + | Inhaled Oxygen | - | - | | | Concentration | | | | + + + + + | Weight | 120.2 kg (265 lb) | 07/07/2014 10:11 AM | | | | | PDT | | + + + + + | Height | 170.2 cm (5' 7") | 07/07/2014 10:11 AM | | | | | PDT | | + + + + + | Body Mass Index | 41.5 | 07/07/2014 10:11 AM | | | | | PDT | | + + + + + documented in this encounter Patient Instructions Patient Instructions Ivy Sun ARNP - 07/07/2014 10:46 AM PDTLisinopril to 10 mg Monitor b/p 2-3 days a week. Notify me of readings in one month. documented in this encounter Progress Notes Ivy Sun ARNP - 07/07/2014 10:29 AM PDTFormatting of this note might be differen t from the original. Subjective: Lucie Miller is a 64 y.o. female patient of Ivy Sun. Chief Complaint: Diabetes and Foot Injury Here for follow-up of prediabetes: Taking metformin. Not exercising. Not counting carbs. Has gained weight. Tolerating metform in daily. FBS 80-90. Occasional 60. PPD: 98-122. No hypoglycemia Eye exam: Recent labs reviewed and GFR noted to be 56. Normal creatinine B/p low today of 90/68. Last few blood pressure readings have been around this range. Den ies excessive NSAID use Restless legs uncontrolled. Wants to increase her requip. Worse since last week Right foot: tripped over box Saturday night. Pain, swelling over dorsal foot area since . Has injured in the past and has had several surgeries on her foot. It is difficult for her to walk. No Known Allergies Medications: She has a current medication list which includes the following prescription(s): alendronate , aspirin adult low strength, freestyle lancets, glucose blood vi test strips, hydrocodone-a cetaminophen, lisinopril, metformin, metronidazole, nortriptyline, paroxetine, ropinirole, s imvastatin, triamcinolone, UNCODED MEDICATION, and UNCODED MEDICATION. Past [...] items are noted in HPI. Objective: BP 90/68 | Pulse 111 | Temp 36.5 C (97.7 F) (Temporal) | Resp 16 | Ht 1.702 m (5' 7") | Wt 120.203 kg (265 lb) | BMI 41.50 kg/m2 | SpO2 96% | ? No General Appearance: Alert, cooperative, no distress, appears stated age Head: Normocephalic, without obvious abnormality, atraumatic Eyes: PERRL, conjunctiva/corneas clear Ears: Normal TM's and external ear canals, and acuity Nose: Nares normal Throat: Lips, mucosa, and tongue normal; Posterior pharynx normal Neck: Supple, symmetrical, no adenopathy, thyroid: not enlarged, symmetric, no tenderness/m ass/nodules, no carotid bruit or JVD Lungs: Clear to auscultation bilaterally, respirations unlabored Heart: Regular rate and rhythm, S1, S2 normal, no murmur, rub or gallop Extremities: right foot noted to have bruising over 4th toe and below lateral malleous, do rsal foot. No erythema, excessive warmth noted. Well-healed incisional scars from previous surgeries. It is tender with palpation of these areas. Pulses: 2+ and symmetric Skin: pink warm and dry Neurologic: Nonfocal. Alert and oriented. Results for orders placed during the hospital encounter of 06/03/14 CBC WITH DIFFERENTIAL Component Value Range WBC 7.0 4.0-11.0 K/uL RBC 4.51 3.70-5.20 M/uL Hgb 13.7 11.5-16.0 g/dL Hct 42.2 34.0-47.0 % MCV 93.5 83.0-101.0 fL MCH 30.3 28.0-35.0 pg MCHC 32.5 32.0-36.0 g/dL RDW 15.1 (*) <15.0 % Platelet Count 295 140-440 K/uL MPV 8.3 % Neutrophils 52.6 45.0-82.0 % % Lymphocytes 31.5 20.0-45.0 % % Monocytes 8.9 4.0-12.0 % % Eosinophils 5.6 (*) 0.0-5.0 % % Basophils 1.4 (*) 0.0-1.0 % Absolute Neutrophils 3.70 1.80-8.50 K/uL Absolute Lymphocytes 2.20 0.60-3.20 K/uL Absolute Monocytes 0.60 0.00-1.00 K/uL Absolute Eosinophils 0.40 0.00-0.40 K/uL Absolute Basophils 0.10 0.00-0.10 K/uL POC GLUCOSE Component Value Range POC Glucose 104 79-150 mg/dL Assessment and Plans: Lucie was seen today for follow-up and foot injury. Diagnoses and associated orders for this visit: Prediabetes Discuss with her that her prediabetes is well controlled. No changes in medications at thi s time. Continue count her carbohydrates and exercise. Right foot injury, initial encounter . She was provided to her. We will get x-rays and I will notify her of those results. We 'll make determination after x-rays are back. - XR Foot Right 3 + Vw; Future Decreased gfr - Renal Function Panel; Future - Microalbumin/Creatinine Ratio, Urine; Future Hypertension I talked with her about her blood pressure that it is running a little bit on the low side. I discussed with her that this can make her tired and also can decrease her renal function . Will decrease her lisinopril from 20 mg to 10 mg daily. She is to monitor her blood pres sure readings and notify me of these readings in one month. Restless legs We'll increase her Requip dose. She'll notify me on how this is working for her. - rOPINIRole (REQUIP) 2 MG tablet; Take 0.5 tablets by mouth nightly. Other Orders - nortriptyline (PAMELOR) 10 MG capsule; Take 3 capsules by mouth nightly. - lisinopril (PRINIVIL, ZESTRIL) 10 mg tablet; Take 1 tablet by mouth every morning. Care instructions and warning signs were discussed. Medications per orders. Side effects discussed. Labs and investigations per orders. Recheck 3 months for recheck of her blood pressure and restless legs. We will also rechec k her renal function panel at that time.. Sooner prn. This note was dictated using AppLayer voice recognition software. Every attempt was made for accuracy, but grammatical errors may exist. If there are questions regarding this, please co ntact provider. lisa, Alessandro Cannon RN - 07/07/2014 10:28 AM PDTFoot check done. Toenails cut short,. Right foot noted to have deformities from past surgeries. Also, noted to have to have nano louses unde r foot. Bruising noted from injury over the weekend. No numbness or tingling/loss of sensa tion noted. documented i n this encounter Plan of Treatment +--------+---------+ + + + | Date | Type | Specialty | Care Team | Description | +--------+---------+ + + + | 11/23/ | Office | Family Medicine | Ivy Sun | | | 2019 | Visit | | [address] | | | | | | [place] | | | | | | [id number] | | | | | | | | +--------+---------+ + + + + +------+--------+ + + | Name | Type | Priori | Associated Diagnoses | Order Schedule | | | | ty | | | + +------+--------+ + + | Renal Function Panel | Lab | Routin | Decreased GFR | Expected: 09/27/2014 | | | | e | | (Approximate), | | | | | | Expires: 07/07/2015 | + +------+--------+ + + | Microalbumin/Creatin | Lab | Routin | Decreased GFR | Expected: 09/27/2014 | | ine Ratio, Urine | | e | | (Approximate), | | | | | | Expires: 07/07/2015 | + +------+--------+ + + documented as of this encounter Results XR Foot Right 3 + Vw (07/07/2014 11:33 AM PDT) + + | Specimen | + + | | + + + + + | Narrative | Performed At | + + + | THREE VIEWS RIGHT FOOT 07/07/2014 11:33 AM CLINICAL HISTORY: | MISCELANIOUS | | inversion injury, pain, swelling, bruising over lateral foot | LAB | | COMPARISON: None available FINDINGS: There is a transverse, | | | distracted fracture of the base of the fifth metatarsal. No other | | | fracture or dislocation is suspected. There is mild hallux valgus | | | deformity. Absence of the distal aspects of the second and fifth | | | proximal phalanges is suggested and may be postsurgical. The | | | tarsometatarsal joints are narrowed and there is mixed lucency and | | | sclerosis along their margins. Joint spaces of the foot otherwise | | | appear maintained. There is an enthesophyte at the calcaneal | | | insertion of the Achilles tendon. Soft tissue swelling is present | | | throughout the foot. No soft tissue gas is visible. IMPRESSION - | | | 1. DISTRACTED, TRANSVERSE FRACTURE OF THE BASE OF THE FIFTH | | | METATARSAL WITH GENERALIZED SOFT TISSUE SWELLING. 2. NARROWING | | | OF THE TARSOMETATARSAL JOINTS WITH MIXED LUCENCY AND SCLEROSIS ALONG | | | THEIR MARGINS, FAVORING NEUROPATHIC OSTEOARTHROPATHY. 3. MILD | | | HALLUX VALGUS AND POTENTIAL SURGICAL CHANGES INVOLVING THE SECOND AND | | | FIFTH DIGITS DESCRIBED. 4. CALCANEAL ENTHESOPHYTE. | | | Dictated and Signed by: Shabbir Valderrama MD Electronically signed: | | | 07/07/2014 3:22 PM | | + + + + + | Procedure Note | + + | Yohannes, Rad Results In - 07/07/2014 3:25 PM PDT THREE VIEWS RIGHT FOOT 07/07/2014 11:33 | | AMCLINICAL HISTORY: inversion injury, pain, swelling, bruising over lateral | | footCOMPARISON: None availableFINDINGS: There is a transverse, distracted fracture of | | the base of the fifthmetatarsal. No other fracture or dislocation is suspected. There | | is mildhallux valgus deformity. Absence of the distal aspects of the second and | | fifthproximal phalanges is suggested and may be postsurgical. The tarsometatarsaljoints | | are narrowed and there is mixed lucency and sclerosis along theirmargins. Joint spaces | | of the foot otherwise appear maintained. There is anenthesophyte at the calcaneal | | insertion of the Achilles tendon. Soft tissueswelling is present throughout the foot. | | No soft tissue gas is visible.IMPRESSION -1. DISTRACTED, TRANSVERSE FRACTURE OF THE | | BASE OF THE FIFTH METATARSAL WITHGENERALIZED SOFT TISSUE SWELLING.2. NARROWING OF THE | | TARSOMETATARSAL JOINTS WITH MIXED LUCENCY AND SCLEROSISALONG THEIR MARGINS, FAVORING | | NEUROPATHIC OSTEOARTHROPATHY.3. MILD HALLUX VALGUS AND POTENTIAL SURGICAL CHANGES | | INVOLVING THE SECOND ANDFIFTH DIGITS DESCRIBED.4. CALCANEAL ENTHESOPHYTE.Dictated | | and Signed by: Shabbir Valderrama MD Electronically signed: 07/07/2014 3:22 PM | |IMPRESSION - | |1. DISTRACTED, TRANSVERSE FRACTURE OF THE BASE OF THE FIFTH METATARSAL WITH | |GENERALIZED SOFT TISSUE SWELLING. | | | |2. NARROWING OF THE TARSOMETATARSAL JOINTS WITH MIXED LUCENCY AND SCLEROSIS | |ALONG THEIR MARGINS, FAVORING NEUROPATHIC OSTEOARTHROPATHY. | | | |3. MILD HALLUX VALGUS AND POTENTIAL SURGICAL CHANGES INVOLVING THE SECOND AND | |FIFTH DIGITS DESCRIBED. | | | |4. CALCANEAL ENTHESOPHYTE. | | | |Dictated and Signed by: Shabbir Valderrama MD | | Electronically signed: 07/07/2014 3:22 PM | + + + +---------+ + + | Performing | Address | City/State/Zipcode | Phone Number | | Organization | | | | + +---------+ + + | [facility]OUS LAB | | | [phone] | + +---------+ + + | MISC[facility] LAB | | | [phone] | + +---------+ + + documented in this encounter Visit Diagnoses + + | Diagnosis | + + | Prediabetes - Primary Other abnormal glucose | + + | Right foot injury, initial encounter | + + | Decreased GFR Nonspecific abnormal results of kidney function study | + + | Hypertension Unspecified essential hypertension | + + | Restless legs Restless legs syndrome (RLS) | + + documented in this encounter
--- OUTSIDE RECORDS SUMMARY | ~2019-10-23 | XMS | Encounter Summary ---
Demographics + + + | Address | [address] | | | [place] [address] | + + + | Home Phone [...] + + + | Author | [facility] | | | and Rainerana | + + + | Organization | [facility] | [...] [place], [place] | | | | | [address] | | + + + + + | Jelena Hill | ECON | [place] | | | | | [address] | | + + + + + Care Team Providers + +------+ + | Care Role Player Name | Role | Phone | + [...] [address] | [place] | | | | | [place], [place] | [address] | | | | | [address] | | | | | | [phone] | | | +--------+ + + + [...] [place] | | | | | | [address] | | | | | | | [...] [address] | [place] | [phone] | | [facility] | | [address] | | | - LABORATORY | | | | + + + + + documented in this encounter Visit Diagnoses + + | Diagnosis | + + | Urinary tract infection without hematuria, site unspecified - Primary | + + documented in this encounter"
--- OUTSIDE RECORDS SUMMARY | ~2019-10-23 | XMS | Encounter Summary ---
Demographics + + + | Address | [address] | | | [place] [address] | + + + | Home Phone | | + + + | Preferred Language | Unknown | + + + | Marital Status | Single | + + + | Samaritan Affiliation | 1077 | + + + | Race | Unknown | + + + | Ethnic Group | Unknown | + + + Author + + + | Author | [facility] | | | and Rainerana | + + + | Organization | [facility] | | | and Rainerana [...] [place], [place] | | | | | [address] | | + + + + + | Jelena Hill | ECON | [place] | | | | | [address] | | + + + + + Care Team Providers + +------+ + | Care Sports Book Board Attendant Name | Role | Phone | [...] Results | | 2018 | | MEDICINE [place] | FINAL CIGAR AND BOX EXAMINER [address] | | | | | [address] | [place] | | | | | [place] | [address] | | | | | [address] | | | | | | [phone] | | | +--------+ + + + [...]
--- OUTSIDE RECORDS SUMMARY | ~2019-10-23 | XMS | Encounter Summary ---
Demographics + + + | Address | [address] | | | [place] [address] | + + + | Home Phone [...] Author | [facility] | | | and Rainerana | + + + | Organization | [facility] | | | and Raienrana | + + + | Address | Unknown | + + + | Phone | Unavailable | + + + Support + + + + + | Name | Relationship | Address | Phone | + + + + + | Aleks Noguera | BRYANT | [address] | | | | | [place], [place] | | | | | [address] | | + + + + + | Jelena Hill | ECON | [place] | | | | | [address] | | + + + + + Care Team Providers + +------+ + | Care Hunter Guide Name | Role | Phone | + +------+ + | Ivy Sun | PCP | | + +------+ + Reason for Visit +--------+ + | Reason | Comments | +--------+ + | Other | | +--------+ + Encounter Details +--------+ + + + + | Date | Type | Department | Care Team | Description | +--------+ + + + + | 08/19/ | Telephone | [facility] | Ivy Sun | Other | | 2015 | | MEDICINE [place] | JUSTYN [address] | | | | | [address] | [place], [place] | | | | | [place], [place] | [address] | | | | | [address] | | | | | | [phone] | | | +--------+ + + + [...] [place] | | | | | | [address] | | | | | | | [...]
--- OUTSIDE RECORDS SUMMARY | ~2019-10-23 | XMS | Encounter Summary ---
Demographics + + + | Address | [address] | | | [place] [address] | + + + | Home Phone [...] | [facility] | | | and Rainerana | + + + | Organization | [facility] [...] [place], [place] | | | | | [address] | | + + + + + | Jelena Hill | ECON | [place] | | | | | [address] | | + + + + + Care Team Providers + +------+ + | Care Box Repairer Name | Role | Phone | [...] | Required | | fracture of | [address] | [address] | | | | | thoracic | [address] | [address] | | | | | vertebra, | [place], | [place], [place] | | | | | non-traumati | [place] [address] | [address] Phone: | | | | | c, initial | Phone: | [phone] | | | | | encounter | [phone] | Fax: | | | | | ([facility] | Fax: | [phone] | | | | | | [phone] | | +--------+ + + + + + Encounter Details +--------+---------+ + + + | Date | Type | Department | Care Team | Description | +--------+---------+ + + + | 09/16/ | Office | [facility] | Calderon Shaw, | Traumatic | | 2014 | Visit | NEUROSURGERY [address] | PA-C [address] | compression fracture | | | | [address] | [address] [place] | of T8 thoracic | | | | [place], [place] | [place] [address] | vertebra, closed, | | | | [address] | [phone] | initial encounter | | | | [phone] | | ([facility]) (Primary Dx) | +--------+---------+ + + + [...] f rom the original. JAVON Rowe [address] [facility] [address] [place] [address] FAX: NEUROSURGERY HISTORY AND PHYSICAL EXAMINATION CHIEF [...] has no apparent deficits with short or ocean transportation intermediary memory. CRANIAL NERVES: II: Acuity is intact. [...] Intrinsics 5 5 Ulnar Intrinsics 5 5 Rubber Compounder Supervisor Strength 5 5 Hip Flexion 5 5 [...] [place] | | | | | | [address] | | | | | | | | +--------+---------+ + + + documented as of this encounter Visit Diagnoses + + | Diagnosis | + + | Traumatic compression fracture of T8 thoracic vertebra, closed, initial encounter | | ([facility]) - Primary | + + documented in this encounter
--- OUTSIDE RECORDS SUMMARY | ~2019-10-23 | XMS | Encounter Summary ---
Demographics + + + | Address | [address] | | | [place] [address] | + + + | Home Phone | | + + + | Preferred Language | Unknown | + + + | Marital Status | Single | + + + | Buddhism Affiliation | 1077 | + + + | Race | Unknown | + + + | Ethnic Group | Unknown | + + + Author + + + | Author | [facility] | | | and Rainerana | + + + | Organization | [facility] | | | and Rainerana [...] [place], [place] | | | | | [address] | | + + + + + | Jelena Hill | ECON | [place] | | | | | [address] | | + + + + + Care Team Providers + +------+ + | Care Pattern Drum Maker Name | Role | Phone | [...] 2012 | | MEDICINE [place] | L, RIVER BOAT CAPTAIN [address] | vaccine (Primary Dx) | | | | [address] | [address]VE [place] | | | | | [place] | [address] | | | | | [address] | | | | | | [phone] | | | +--------+ + + + [...] [place] | | | | | | [address] | | | | | | | | +--------+---------+ + + + documented as of this encounter Visit Diagnoses + + | Diagnosis | + + | Need for shingles vaccine - Primary Need for prophylactic vaccination and inoculation | | against varicella | + + documented in this encounter"
--- OUTSIDE RECORDS SUMMARY | ~2019-10-23 | XMS | Encounter Summary ---
Demographics + + + | Address | [address] | | | [place] [address] | + + + | Home Phone [...] + + | Author | [facility] | | | and Rainerana | + + + | Organization | [facility] | | | and Rainerana [...] [place], [place] | | | | | [address] | | + + + + + | Jelena Hill | ECON | [place] | | | | | [address] | | + + + + + Care Team Providers + +------+ + | Care Spool Carrier Name | Role | Phone | + [...] + | 09/28/ | Refill | [facility] | Ivy Sun | Medication Refill | | 2012 | | MEDICINE [place] | Rishabh, JUSTYN [address] | | | | | [address] | [place], [place] | | | | | [place], [place] | [address] | | | | | [address] | | | | | | [phone] | | | +--------+--------+ + + + [...] [place] | | | | | | [id number] | | | | | | | | +--------+---------+ + + + documented as of this encounter Visit Diagnoses Not on filedocumented in this encounter"
--- OUTSIDE RECORDS SUMMARY | ~2019-10-23 | XMS | Encounter Summary ---
Demographics + + + | Address | [address] | | | [place] [address] | + + + | Home Phone [...] Author | [facility] | | | and Rainerana | + + + | Organization | [facility] | | [...] [place], [place] | | | | | [address] | | + + + + + | Jelena Hill | ECON | [place] | | | | | [address] | | + + + + + Care Team Providers + +------+ + | Care Roofing Apprentice Name | Role | Phone | + [...] + | 12/18/ | Refill | [facility] | Ivy Sun | Medication Refill | | 2012 | | MEDICINE [place] | Rishabh, JUSTYN [address] | | | | | [address] | [place] [place], [place] | | | | | [place], [place] | [address] | | | | | [address] | | | | | | [phone] | | | +--------+--------+ + + + [...] [place] | | | | | | [address] | | | | | | | | +--------+---------+ + + + documented as of this encounter Visit Diagnoses + + | Diagnosis | + + | Hyperlipidemia - Primary Other and unspecified hyperlipidemia | + + documented in this encounter"
--- OUTSIDE RECORDS SUMMARY | ~2019-10-23 | XMS | Encounter Summary ---
Demographics + + + | Address | [address] | | | [place] [address] | + + + | Home Phone | | + + + | Preferred Language | Unknown | + + + | Marital Status | Single | + + + | Denominational Affiliation | 1077 | + + + | Race | Unknown | + + + | Ethnic Group | Unknown | + + + Author + + + | Author | [facility] | | | and Rainerana | + + + | Organization | [facility] | | [...] [place], [place] | | | | | [address] | | + + + + + | Jelena Hill | ECON | [place], [place] | | | | | [address] | | + + + + + Care Team Providers + +------+ + | Care Green End Man Name | Role | Phone | [...] + + | 05/06/ | Office | [facility] | Ivy Sun | Routine general | | 2014 | Visit | MEDIC[facility] [place] | JUSTYN Keating [address] | medical examination | | | | [address] | AVE [place], [place] | at a health care | | | | [place], [place] | [address] | facility (Primary | | | | [address] | | Dx); Laboratory | | | | [phone] | | examination ordered | | | [...] Normal TM's and external ear canals, and [place], wears hearing aids Nose: Nares normal Throat: [...] normal, atraumatic, no cyanosis or edema Skin: [place],warm and dry Neurologic: Alert and oriented. . Balance and gait normal. Results for orders placed in visit on 05/06/14 [facility] EXTERNAL IMAGE Component Value Range EXT MAMMOGRAPHY [...] - Culture, Urine; Future Other Orders - [facility] External Image 25 minute visit > 50% counseling regarding condition, options for treatment, and possible risks. Care instructions and warning signs were discussed. Medications per orders. Side effects discussed. Labs and investigations per orders. Recheck 2 months prediabtes and hypertension. Sooner prn. This note was dictated using [employer] voice recognition software. Every attempt was made [...] [place] | | | | | | [address] | | | | | | | [...] + | [facility] | [address] | [place] | [phone] | | [facility] | | [address] | | | - LABORATORY | | | | + + + + + | [facility] | [address] | [place], [place] | | | [facility] | | [address] | | | - LABORATORY | | [...] | 1.030 | | | | | [place], | | | | | | [facility], [...]
--- OUTSIDE RECORDS SUMMARY | ~2019-10-23 | XMS | Encounter Summary ---
Demographics + + + | Address | [address] | | | [place] [address] | + + + | Home Phone [...] + | Author | [facility] | | | and Rainerana | + + + | Organization | [facility] | | | and Rainerana [...] [place], [place] | | | | | [address] | | + + + + + | Jelena Hill | ECON | [place] | | | | | [address] | | + + + + + Care Team Providers + +------+ + | Care Mechanical Technologist Name | Role | Phone | [...] + | 09/28/ | Refill | [facility] | Ivy Sun | Medication Refill | | 2012 | | MEDICINE [place] | Rishabh, JUSTYN [address] | | | | | [address] | [place], [place] | | | | | [place], [place] | [address] | | | | | [address] | | | | | | [phone] | | | +--------+--------+ + + + [...] [place] | | | | | | [address] | | | | | | | | +--------+---------+ + + + documented as of this encounter Visit Diagnoses + + | Diagnosis | + + | Insomnia - Primary Insomnia, unspecified | + + documented in this encounter"
--- OUTSIDE RECORDS SUMMARY | ~2019-10-23 | XMS | Encounter Summary ---
Demographics + + + | Address | [address] | | | [place] [address] | + + + | Home Phone | | + + + | Preferred Language | Unknown | + + + | Marital Status | Single | + + + | Episcopalian Affiliation | 1077 | + + + | Race | Unknown | + + + | Ethnic Group | Unknown | + + + Author + + + | Author | [facility] | | | and Rainerana | + + + | Organization | [facility] | | [...] [place], [place] | | | | | [address] | | + + + + + | Jelena Hill | ECON | [place] | | | | | [address] | | + + + + + Care Team Providers + +------+ + | Care Subsurface Augmentee Operator Name | Role | Phone | [...] Closed | | Radiology | Diagnoses | Such[place], | [facility] | | | | | Low back | Calderon E, | [address] | | | | | pain | PA-C [address] | [place], | | | | | Radiculopath | [address] | [place] | | | | | y, lumbar | [address] | [address] | | | | | region | [place], | Phone: | | | | | Procedures | [place] [address] | [phone] | | | | | MRI Lumbar | Phone: | Fax: | | | | | Spine wo | [phone] | [phone] | | | | | Contrast [place] | Fax: | | | | | | MRI, LUMBAR | [phone] | | | | | | SPINE | | | +--------+--------+ + + + + Reason for Visit Diagnostic/Screening (Routine) +--------+--------+ + + + + | Status | Reason | Specialty | Diagnoses / | Referred By | Referred To | | | | | Procedures | Contact | Contact | +--------+--------+ + + + + | Closed | | Radiology | Diagnoses | Sucharda, | [facility] | | | | | Low back | Calderon E, | [address] | | | | | pain | PA-C [address] | [place], | | | | | Radiculopath | [address] | [place] | | | | | y, lumbar | [address] | [address] | | | | | region | [place], | Phone: | | | | | Procedures | [place] [address] | [phone] | | | | | MRI Lumbar | Phone: | Fax: | | | | | Spine wo | [phone] | [phone] | | | | | Contrast [place] | Fax: | | | | | | MRI, LUMBAR | [phone] | | | | | | SPINE | | | +--------+--------+ + + + + Encounter Details +--------+ + + + + | Date | Type | Department | Care Team | Description | +--------+ + + + + | 09/24/ | Hospital | [facility] | Calderon Shaw, | Lumbar | | 2016 | Encounter | [facility] MRI [address] | PA-C [address] | radiculopathy; Low | | | | [address] [place], | [address] [place] | back pain | | | | [place] [address] | [place] [address] | potentially | | | | [phone] | [phone] | associated with | | | | [...] + +--------+ + + + | MRI LUMBAR SPINE WO | Routin | 09/24/2016 | Lumbar | Results for this | | CONTRAST | e | 11:57 AM | radiculopathy Low | procedure are in the | | | | PST | back pain | results section. | | | | | potentially | | | | | | associated with | | | | | | spinal stenosis | | + +--------+ + + + documented in this encounter Results MRI Lumbar Spine wo Contrast (09/24/2016 11:57 AM PST) + + | Specimen | + + | | + + + + + | Narrative | Performed At | + + + | MRI LUMBAR SPINE WITHOUT CONTRAST: 09/24/2016 11:10 AM CLINICAL | [facility] | | HISTORY: Low back pain with radicular symptoms COMPARISON: | [facility] | | Thoracic MRI 08/01/2016; lumbar radiographs 07/16/2016 TECHNIQUE: In | MEDICAL [facility]ENTER | | the 3T scanner multiplanar, multisequence imaging of the lumbar | - IMAGING | | spine is performed. FINDINGS: Segment numbering is maintained from | | | prior with 5 lumbar-type vertebral bodies designated. Complete | | | fusion of the L5-S1 disc interspace appears developmental. Stable | | | 40% compression deformity of T12, primarily secondary to inferior | | | endplate depression. No acute marrow signal abnormality. Inferior | | | portion of the posterior column of T12 shows mild stable | | | retropulsion, without significant central canal encroachment. | | | Mild central superior endplate depression of L4, typical for old | | | Schmorl's node. No associated marrow signal abnormality. No change | | | from 07/16/2016. Other vertebral body heights are normally | | | maintained. No areas of marrow signal abnormality. Multilevel disc | | | desiccation. L4-L5 anterolisthesis of 1 cm. Alignment is otherwise | | | within normal limits. Exophytic 1.6 cm left upper pole renal | | | cyst. Low signal, approximately 1 cm left adrenal nodule as noted on | | | prior imaging. No other abnormality in the included abdomen | | | paraspinous soft tissues. Conus medullaris appears normal, with | | | tip at L2. Tiny lipoma of filum terminale. L1-L2: Sagittal images | | | only. No significant disc protrusion. No central canal or foraminal | | | narrowing. L2-L3: No significant disc protrusion. Moderate facet | | | degenerative changes. No central canal or foraminal narrowing. | | | L3-L4: Schmorl's node in the superior endplate of L4. Mild bilobed | | | disc bulge at the subarticular level bilaterally. Moderately severe | | | facet degenerative change and hypertrophy with ligamentum flavum | | | thickening. These changes produce mild central canal stenosis and | | | bilateral moderate subarticular recess narrowing. L4-L5: Severe | | | posterior facet degenerative changes with degenerative | | | anterolisthesis. Probable chronic bilateral pars defects. Mild | | | broad-based disc bulge. These changes combine to produce severe | | | central canal stenosis and bilateral mild foraminal narrowing. | | | L5-S1: Fused disc interspace. No central canal or foraminal narrowing. | | | IMPRESSION - 1. Stable T12 compression deformity with no canal | | | encroachment. 2. L4-L5 spondylolisthesis, stable from prior. | | | Severe central canal stenosis and bilateral mild foraminal narrowing | | | at this level. 3. Fusion of the L5-S1 disc interspace which | | | appears developmental. 4. Degenerative spondylitic changes at | | | L3-L4 producing moderate bilateral subarticular recess narrowing. | | | 5. Tiny filum terminale lipoma. 6. Stable 1 cm left adrenal | | | nodule. Dictated and Signed by: Valdo Reeves MD | | | Electronically signed: 09/24/2016 2:09 PM | | + + + + + | Procedure Note | + + | Yohannes, Rad Results In - 09/24/2016 2:12 PM PST MRI LUMBAR SPINE WITHOUT CONTRAST: | | 09/24/2016 11:10 AMCLINICAL HISTORY: Low back pain with radicular symptomsCOMPARISON: | | Thoracic MRI 08/01/2016; lumbar radiographs 07/16/2016TECHNIQUE: In the 3T scanner | | multiplanar, multisequence imaging of the lumbarspine is performed.FINDINGS: Segment | | numbering is maintained from prior with 5 lumbar-typevertebral bodies designated. | | Complete fusion of the L5-S1 disc interspaceappears developmental.Stable 40% compression | | deformity of T12, primarily secondary to inferiorendplate depression. No acute marrow | | signal abnormality. Inferior portion of theposterior column of T12 shows mild stable | | retropulsion, without significantcentral canal encroachment.Mild central superior | | endplate depression of L4, typical for old Schmorl's node.No associated marrow signal | | abnormality. No change from 07/16/2016.Other vertebral body heights are normally | | maintained. No areas of marrow signalabnormality. Multilevel disc desiccation.L4-L5 | | anterolisthesis of 1 cm. Alignment is otherwise within normal limits.Exophytic 1.6 cm | | left upper pole renal cyst. Low signal, approximately 1 cm leftadrenal nodule as noted | | on prior imaging. No other abnormality in the includedabdomen paraspinous soft | | tissues.Conus medullaris appears normal, with tip at L2. Tiny lipoma of filum | | terminale.L1-L2: Sagittal images only. No significant disc protrusion. No central canal | | orforaminal narrowing.L2-L3: No significant disc protrusion. Moderate facet degenerative | | changes. Nocentral canal or foraminal narrowing.L3-L4: Schmorl's node in the superior | | endplate of L4. Mild bilobed disc bulge atthe subarticular level bilaterally. Moderately | | severe facet degenerative changeand hypertrophy with ligamentum flavum thickening. | | These changes produce mildcentral canal stenosis and bilateral moderate subarticular | | recess narrowing.L4-L5: Severe posterior facet degenerative changes with | | degenerativeanterolisthesis. Probable chronic bilateral pars defects. Mild broad-based | | discbulge. These changes combine to produce severe central canal stenosis andbilateral | | mild foraminal narrowing.L5-S1: Fused disc interspace. No central canal or foraminal | | narrowing.IMPRESSION - 1. Stable T12 compression deformity with no canal encroachment.2. | | L4-L5 spondylolisthesis, stable from prior. Severe central canal stenosis andbilateral | | mild foraminal narrowing at this level.3. Fusion of the L5-S1 disc interspace which | | appears developmental.4. Degenerative spondylitic changes at L3-L4 producing moderate | | bilateralsubarticular recess narrowing.5. Tiny filum terminale lipoma.6. Stable 1 cm | | left adrenal nodule.Dictated and Signed by: Valdo Reeves MD Electronically signed: | | 09/24/2016 2:09 PM | |foraminal narrowing. | | | |L2-L3: No significant disc protrusion. Moderate facet degenerative changes. No | |central canal or foraminal narrowing. | | | |L3-L4: Schmorl's node in the superior endplate of L4. Mild bilobed disc bulge at | |the subarticular level bilaterally. Moderately severe facet degenerative change | |and hypertrophy with ligamentum flavum thickening. These changes produce mild | |central canal stenosis and bilateral moderate subarticular recess narrowing. | | | |L4-L5: Severe posterior facet degenerative changes with degenerative | |anterolisthesis. Probable chronic bilateral pars defects. Mild broad-based disc | |bulge. These changes combine to produce severe central canal stenosis and | |bilateral mild foraminal narrowing. | | | |L5-S1: Fused disc interspace. No central canal or foraminal narrowing. | | | |IMPRESSION - | |1. Stable T12 compression deformity with no canal encroachment. | | | |2. L4-L5 spondylolisthesis, stable from prior. Severe central canal stenosis and | |bilateral mild foraminal narrowing at this level. | | | |3. Fusion of the L5-S1 disc interspace which appears developmental. | | | |4. Degenerative spondylitic changes at L3-L4 producing moderate bilateral | |subarticular recess narrowing. | | | |5. Tiny filum terminale lipoma. | | | |6. Stable 1 cm left adrenal nodule. | | | |Dictated and Signed by: Valdo Reeves MD | | Electronically signed: 09/24/2016 2:09 PM | + + + + + + + | Performing | Address | City/State/Zipcode | Phone Number | | Organization | | | | + + + + + | [facility] | [address] | [place] | [phone] | | [facility] | | [address] | | | - IMAGING | | | | + + + + + documented in this encounter Visit Diagnoses + + | Diagnosis | + + | Lumbar radiculopathy Thoracic or lumbosacral neuritis or radiculitis, unspecified | + + | Low back pain potentially associated with spinal stenosis | + + documented in this encounter"
--- OUTSIDE RECORDS SUMMARY | ~2019-10-23 | XMS | Encounter Summary ---
Demographics + + + | Address | [address] | | | [place] [address] | + + + | Home Phone [...] + | Author | [facility] | | | and Rainerana | + + + | Organization | [facility] [...] [place], [place] | | | | | [address] | | + + + + + | Jelena Hill | ECON | [place] | | | | | [address] | | + + + + + Care Team Providers + +------+ + | Care Agronomy Technician Name | Role | Phone | [...] | Required | | fracture of | DIRECT[address] MEDICAL [address] | [address] | | | | | thoracic | [address] | [place] [address] | | | | | vertebra, | [place], | [place] | | | | | non-traumati | [place] [address] | [address] Phone: | | | | | c, initial | Phone: | [phone] | | | | | encounter | [phone] | Fax: | | | | | ([facility]) | Fax: | [phone] | | | | | | [phone] | | +--------+ + + + + + Reason for Visit +---------+ + | Reason | Comments | +---------+ + | Results | | +---------+ + Encounter Details +--------+ + + + + | Date | Type | Department | Care Team | Description | +--------+ + + + + | 08/29/ | Telephone | [facility] | Ivy Sun | Results | | 2014 | | [facility]IC[facility] | L, DIRECTOR MEDICAL [address] | | | | | [address] | [place], [place] | | | | | [place], [place] | [address] | | | | | [address] | | | | | | [phone] | | | +--------+ + + + [...] [place] | | | | | | [address] | | | | | | | | +--------+---------+ + + + + + +--------+ + + | Name | Type | Priori | Associated Diagnoses | Order Schedule | | | | ty | | | + + +--------+ + + | * DANIELLE NEWELL | Outpatient | Routin | Compression | Ordered: 08/29/2015 | | Neurosurgery - AMB | Referral | e | fracture of thoracic | | | Referral | | | vertebra, | | | | | | non-traumatic, | | | | | | initial encounter | | | | | | (HCC) | | + + +--------+ + + documented as of this encounter Visit Diagnoses + + | Diagnosis | + + | Compression fracture of thoracic vertebra, non-traumatic, initial encounter (HCC) - | | Primary | + + documented in this encounter"
--- OUTSIDE RECORDS SUMMARY | ~2019-10-23 | XMS | Encounter Summary ---
Demographics + + + | Address | [address] | | | [place] [address] | + + + | Home Phone [...] | Author | [facility] | | | and Rainerana | + + + | Organization | [facility] | [...] [place], [place] | | | | | [address] | | + + + + + | Jelena Hill | ECON | [place] | | | | | [address] | | + + + + + Care Team Providers + +------+ + | Care Welt Rander Name | Role | Phone | + +------+ + | Ivy Sun | PCP | | + +------+ + Encounter Details +--------+ + + + + | Date | Type | Department | Care Team | Description | +--------+ + + + + | 10/14/ | Hospital | [facility] | Ivy Sun | Hyperlipidemia; | | 2012 | Encounter | MED CTR LABORATORY | L, RAW 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 | | | [facility] | | | - LABORATORY | + + + + + + + + | Performing | Address | City/State/Zipcode | Phone Number | | Organization | | | | + + + + + | [facility] | [address] | [place] | [phone] | | [facility] | | [address] | | | - LABORATORY | | | | + + + + + | [facility] | [address] | [place] | | | [facility] | | [address] | | | - LABORATORY | | [...] + | [facility] | [address] | [place] | [phone] | | [facility] | | [address] | | | - LABORATORY | | | | + + + + + | [facility] | [address] | [place] | | | [facility] | | [address] | | | - LABORATORY | | [...] - 1.030 | [facility] | | | [place] | | | [facility] | | [...] | + + + + + | [facility] | [address] | [place] | [phone] | | [facility] | | [address] | | | - LABORATORY | | | | + + + + + | [facility] | [address] | [place], [place] | | | [facility] | | [address] | | | - LABORATORY | | [...] + + | Performing | Address | City/State/[facility] | Phone Number | | Organization | | | | + + + + + | [facility] | [address] | [place] | [phone] | | [facility] | | [address] | | | - LABORATORY | | | | + + + + + | [facility] | [address] | [place] | | | [facility] | | [address] | | | - LABORATORY | | [...] | + + + + + | [facility] | [address] | [place] | [phone] | | [facility] | | [address] | | | - LABORATORY | | | | + + + + + | [facility] | [address] | [place] | | | [facility] | | [address] | | | - LABORATORY | | [...] + | [facility] | [address] | [place], [place] | [phone] | | [facility] | | [address] | | | - LABORATORY | | | | + + + + + | [facility] | [address] | [place], [place] | | | [facility] | | [address] | | | - LABORATORY | | [...] - 1.030 | [facility] | | | [place] | | | [facility] | | [address] | [place] | [phone] | | [facility] | | [address] | | | - LABORATORY | | | | + + + + + | [facility] | [address] | [place] | | | [facility] | | [address] | | | - LABORATORY | | [...] + + | Performing | Address | City/State/[facility] | Phone Number | | Organization | | | | + + + + + | [facility] | [address] | [place] | [phone] | | [facility] | | [address] | | | - LABORATORY | | | | + + + + + | [facility] | [address] | [place] | | | [facility] | | [address] | | | - LABORATORY | | [...] A1c | DIABETIC PATIENT RANGES: | | [facility] | | | | 6.2-7.0% = Well [...] + | [facility] | [address] | [place] | [phone] | | [facility] | | [address] | | | - LABORATORY | | | | + + + + + | [facility] | [address] | [place] | | | [facility] | | [address] | | | - LABORATORY | | [...] + | [facility] | [address] | [place] | [phone] | | [facility] | | [address] | | | - LABORATORY | | | | + + + + + | [facility] | [address] | [place], [place] | | | [facility] | | [address] | | | - LABORATORY | | [...] + | [facility] | [address] | [place] | [phone] | | [facility] | | [address] | | | - LABORATORY | | | | + + + + + | [facility] | [address] | [place] | | | [facility] | | [address] | | | - LABORATORY | | [...] + | [facility] | [address] | [place] | [phone] | | [facility] | | [address] | | | - LABORATORY | | | | + + + + + | [facility] | [address] | [place] | | | [facility] | | [address] | | | - LABORATORY | | [...] 70 - 109 mg/dL | [facility] | | | | | | [facility] | | | | | | MEDICAL [...] + | [facility] | [address] | [place], [place] | [phone] | | [facility] | | [address] | | | - LABORATORY | | | | + + + + + | [facility] | [address] | [place], [place] | | | [facility] | | [address] | | | - LABORATORY | | [...]
--- OUTSIDE RECORDS SUMMARY | ~2019-10-23 | XMS | Encounter Summary ---
Demographics + + + | Address | [address] | | | [place] [address] | + + + | Home Phone [...] Author | [facility] | | | and Rainerana | + + + | Organization | [facility] | | [...] [place], [place] | | | | | [address] | | + + + + + | Jelena Hill | ECON | [place] | | | | | [address] | | + + + + + Care Team Providers + +------+ + | Care Marine Welder Name | Role | Phone | + [...] + | 10/14/ | Refill | [facility] | Ivy Sun | Medication Refill | | 2013 | | MEDICINE [place] | Rishabh, JUSTYN [address] | | | | | [address] | [place] | | | | | [place] | [address] | | | | | [address] | | | | | | [phone] | | | +--------+--------+ + + + [...] [place] | | | | | | [address] | | | | | | | | +--------+---------+ + + + documented as of this encounter Visit Diagnoses Not on filedocumented in this encounter"
--- OUTSIDE RECORDS SUMMARY | ~2019-10-23 | XMS | Encounter Summary ---
Demographics + + + | Address | [address] | | | [place] [address] | + + + | Home Phone [...] + | Author | [facility] | | | and Rainerana | + + + | Organization | [facility] | | | and [...] [place], [place] | | | | | [address] | | + + + + + | Jelena Hill | ECON | [place] | | | | | [address] | | + + + + + Care Team Providers + +------+ + | Care Commercial Driver Name | Role | Phone | + +------+ + | Ivy Sun | PCP | | + +------+ + Encounter Details +--------+ + + + + | Date | Type | Department | Care Team | Description | +--------+ + + + + | 06/25/ | Hospital | [facility] | Ivy Sun | | | 2011 | Encounter | MED CTR XRAY [address] | L, 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 [address] | | | | | [address] [place] | AVE [place], [place] | | | | | [place] [address] | [address] | | | | | [phone] | | | +--------+ + + + [...] | | 11 | 2 | | [address] UNITS capsule | mouth once weekly | [...] [place] | | | | | | [id number] | | | | | | | | +--------+---------+ + + + documented as of this encounter Procedures + +--------+ + + + | Procedure Name | Priori | Date/Time | Associated Diagnosis | Comments | | | ty | | | | + +--------+ + + + | NM MYOCARDIAL | | 06/25/2012 | | Results for this | | PERFUSION MULT SPECT | | 9:36 AM | | procedure are in the | | | | PDT | | results section. | + +--------+ + + + documented in this encounter Results NM Myocardial Perfusion Mult SPECT (06/25/2012 9:36 AM PDT) + + | Specimen | + + | | + + + + + | Narrative | Performed At | + + + | [facility] Diagnostic Imaging Department | [place] | | [address] [facility] [place] | [facility] | | EXERCISE SESTAMIBI STRESS TEST, | DIAG IMG | | 06/25/2012 PROCEDURE: The patient exercised using a standard | | | Lavelle protocol and walked for 1 minute into stage 2, achieving 7 | | | METS. The exercise duration was 4 minutes. The heart rate | | | increased from 105 beats p er minute to 170 beats per minute, which | | | is 106% of the maximum predicted heart rate. The blood pres sure | | | chelly from 114/86 mmHg to 150/81 mmHg. The test was stopped because | | | achievement of target heart rate. Baseline EKG shows an underlying | | | sinus tachycardia, complete right bundle branch block. At the | | | peak of exercise, 10.4 mCi of the sestamibi were injected | | | intravenously. The patient was take n to the Nuclear Medicine | | | Department. The SPECT myocardial perfusion imaging was acquired with | | | wall motion analysis. The rest imaging was performed using a 29.7 | | | mCi sestamibi intravenous injection. T he repeated SPECT | | | myocardial perfusion imaging was acquired with wall motion analysis. | | | EXERCISE SESTAMIBI MYOCARDIAL PERFUSION IMAGING RESULTS: The | | | exercise sestamibi tomographic images, reviewed without attenuation | | | compensation resolution, reve aled a normal myocardial perfusion | | | pattern as seen on the short axis, vertical long axis, and horizon | | | italo long axis projections. The left ventricular cavity is normal. | | | The rest imaging is also normal. The gated SPECT revealed a | | | normal left ventricular wall thickness and motion. The LVEF is 80%. | | | IMPRESSION: 1. EXERCISE EKG IS NEGATIVE. 2. BLOOD | | | PRESSURE RESPONSE IS NORMAL. 3. THERE IS NO CHEST PAIN DURING | | | PROCEDURE. 4. THERE IS NO ARRHYTHMIA DURING PROCEDURE. | | | 5. EXERCISE TOLERANCE IS DIMINISHED FOR AGE. 6. NORMAL | | | EXERCISE SESTAMIBI MYOCARDIAL PERFUSION IMAGING STUDY. NORMAL LEFT | | | VENTRICULAR SIZE, WALL THICKNESS AND MOTION. PRESERVED LEFT | | | VENTRICULAR SYSTOLIC FUNCTION. LVEF BY GATED SPECT IS 80%. | | | Dictated Date/Time: 06/25/2012 15:24 Transcribed Date/Time: | | | 06/25/2012 16:12 Contract Design Agent: <Electronically Signed | | | by Brianna Curiel MD [facility]> 06/26/12 0636 | | + + + + + | Procedure Note | + + | Nic Sheffield Conversion - 12/04/2013 5:56 PM [facility] | | Diagnostic Imaging Department [address] [place] [address] | | EXERCISE SESTAMIBI STRESS TEST, 06/25/2012 PROCEDURE: | | The patient exercised using a standard Lavelle protocol and walked for 1 minute into stage | | 2, achieving 7 METS. The exercise duration was 4 minutes. The heart rate increased | | from 105 beats per minute to 170 beats per minute, which is 106% of the maximum | | predicted heart rate. The blood pressure chelly from 114/86 mmHg to 150/81 mmHg. The | | test was stopped because achievement of target heart rate. Baseline EKG shows an | | underlying sinus tachycardia, complete right bundle branch block. At the peak of | | exercise, 10.4 mCi of the sestamibi were injected intravenously. The patient was taken | | to the Nuclear Medicine Department. The SPECT myocardial perfusion imaging was acquired | | with wall motion analysis. The rest imaging was performed using a 29.7 mCi sestamibi | | intravenous injection. The repeated SPECT myocardial perfusion imaging was acquired | | with wall motion analysis. EXERCISE SESTAMIBI MYOCARDIAL PERFUSION IMAGING RESULTS: The | | exercise sestamibi tomographic images, reviewed without attenuation compensation | | resolution, revealed a normal myocardial perfusion pattern as seen on the short axis, | | vertical long axis, and horizontal long axis projections. The left ventricular cavity | | is normal. The rest imaging is also normal. The gated SPECT revealed a normal left | | ventricular wall thickness and motion. The LVEF is 80%. IMPRESSION:1. EXERCISE EKG IS | | NEGATIVE. 2. BLOOD PRESSURE RESPONSE IS NORMAL. 3. THERE IS NO CHEST PAIN DURING | | PROCEDURE. 4. THERE IS NO ARRHYTHMIA DURING PROCEDURE. 5. EXERCISE TOLERANCE IS | | DIMINISHED FOR AGE. 6. NORMAL EXERCISE SESTAMIBI MYOCARDIAL PERFUSION IMAGING STUDY. | | NORMAL LEFT VENTRICULAR SIZE, WALL THICKNESS AND MOTION. PRESERVED LEFT VENTRICULAR | | SYSTOLIC FUNCTION. LVEF BY GATED SPECT IS 80%. Dictated Date/Time: 06/25/2012 | | 15:24Transcribed Date/Time: 06/25/2012 16:12Transcriptionist: <Electronically | | Signed by Brianna Curiel MD [facility]> 06/26/12 0636 | | | |IMPRESSION: | |1. EXERCISE EKG IS NEGATIVE. | | | |2. BLOOD PRESSURE RESPONSE IS NORMAL. | | | |3. THERE IS NO CHEST PAIN DURING PROCEDURE. | | | |4. THERE IS NO ARRHYTHMIA DURING PROCEDURE. | | | |5. EXERCISE TOLERANCE IS DIMINISHED FOR AGE. | | | |6. NORMAL EXERCISE SESTAMIBI MYOCARDIAL PERFUSION IMAGING STUDY. NORMAL LEFT VENTRICULAR SIZE, WALL | | THICKNESS AND MOTION. PRESERVED LEFT VENTRICULAR SYSTOLIC FUNCTION. LVEF BY GATED SPECT IS 80%. | | | |Dictated Date/Time: 06/25/2012 15:24 | |Transcribed Date/Time: 06/25/2012 16:12 | |Contract Design Agent: | |<Electronically Signed by Brianna Curiel MD [facility]> 06/26/12 0636 | + + + +---------+ + + [...]
--- OUTSIDE RECORDS SUMMARY | ~2019-10-23 | XMS | Encounter Summary ---
Demographics + + + | Address | [address] | | | [place] [address] | + + + | Home Phone [...] | Author | [facility] | | | and Rainerana | + + + | Organization | [facility] | | | and [...] [place], [place] | | | | | [address] | | + + + + + | Jelena Hill | ECON | [place] | | | | | [address] | | + + + + + Care Team Providers + +------+ + | Care Self Defense Instructor Name | Role | Phone | [...] + | 07/21/ | Patient | [facility] | Ivy Sun | Preventive | | 2018 | Outreach | MEDICINE [place] | JUSTYN Keating [address] | Screening, Breast | | | | [address] | [place], [place] | Cancer Screening | | | | [place], [place] | [address] | | | | | [address] | | | | | | [phone] | | | +--------+ + + + [...] [place] | | | | | | [address] | | | | | | | | +--------+---------+ + + + documented as of this encounter Visit Diagnoses Not on filedocumented in this encounter"
--- OUTSIDE RECORDS SUMMARY | ~2019-10-23 | XMS | Encounter Summary ---
Demographics + + + | Address | [address] | | | [place] [address] | + + + | Home Phone [...] Author | [facility] | | | and Rainerana | + + + | Organization | [facility] | | | and Rainerana [...] [place], [place] | | | | | [address] | | + + + + + | Jelena Hill | ECON | [place] | | | | | [address] | | + + + + + Care Team Providers + +------+ + | Care Tactical Deception Plans Officer Name | Role | Phone | + [...] T12 | Ivy L, | [address] | | | | | compression | GIFT CONSULTANT [address] | [place], | | | | | fracture, | [address] | [place] | | | | | initial | [place], | [address] | | | | | encounter | [place] [address] | Phone: | | | | | (HCC) | Phone: | [phone] | | | | | Procedures | [phone] | Fax: | | | | | MRI Thoracic | Fax: | [phone] | | | | | Spine w wo | [phone] | | | | | | Contrast [...] Closed | | Radiology | Diagnoses | Dino, | [facility] | | | | | T12 | Ivy Keating, | [address] | | | | | compression | GIFT CONSULTANT [address] | [place], | | | | | fracture, | [address] | [place] | | | | | initial | [place], | [address] | | | | | encounter | [place] [address] | Phone: | | | | | (HCC) | Phone: | [phone] | | | | | Procedures | [phone] | Fax: | | | | | MRI Thoracic | Fax: | [phone] | | | | | Spine w wo | [phone] | | | | | | Contrast | | | +--------+--------+ + + + + Encounter Details +--------+ + + + + | Date | Type | Department | Care Team | Description | +--------+ + + + + | 08/01/ | Hospital | [facility] | Ivy Sun | T12 compression | | 2016 | Encounter | MED CTR MRI [address] | L, GIFT CONSULTANT [address] | fracture, initial | | | | [place], | AVE [place], [place] | encounter ([facility]) | | | | [place] [address] | [address] | | | | | [phone] | | | +--------+ + + + [...] | | | | | | [place] | | | | | | [address] | | | | | | | | +--------+---------+ + + + documented as of this encounter Procedures + +--------+ + + + | Procedure Name | Priori | Date/Time | Associated Diagnosis | Comments | | | ty | | | | + +--------+ + + + | MRI THORACIC SPINE W | Routin | 08/01/2016 | T12 compression | Results for this | | WO CONTRAST | e | 5:39 PM | fracture, initial | procedure are in the | | | | PDT | encounter ([facility]) | results section. | + +--------+ + [...] Thoracic MRI July 2015 TECHNIQUE: The | [facility] | | following 3T MR sequences [...] narrow the central canal on provided large wjxmo-ks-rtyo sagittal | | | images through the [...] from imaging of July 2015 and with nnqhfsmovvf21-50% loss of vertebral | | body height. Previously visible marrow edema at thislevel has resolved. There is new | | central compression deformity of the aokpzjtiV96 vertebral endplate, with approximate | | 40% [...] central | | canal on provided large papdn-ku-ejnlgvdcqsci images through the region. The cervical | [...] [address] | [place] | [phone] | | [facility] | | [address] | | | - IMAGING | | | | + + + + + documented in this encounter Visit Diagnoses + + | Diagnosis | + + | T12 compression fracture, initial encounter (HCC) | + + documented in this encounter"
--- OUTSIDE RECORDS SUMMARY | ~2019-10-23 | XMS | Encounter Summary ---
Demographics + + + | Address | [address] | | | [place] [address] | + + + | Home Phone [...] | [facility] | | | and Rainerana | + + + | Organization | [facility] | [...] [place], [place] | | | | | [address] | | + + + + + | Jelena Hill | ECON | [place] | | | | | [address] | | + + + + + Care Team Providers + +------+ + | Care Grout Worker Name | Role | Phone | [...] + + | 02/28/ | Telephone | [facility] | Ivy Sun | Medication Refill | | 2017 | | MEDICINE [place] | JUSTYN Keating [address] | | | | | [address] | [place], [place] | | | | | [place] | [address] | | | | | [address] | | | | | | [phone] | | | +--------+ + + + [...] [place] | | | | | | [address] | | | | | | | [...]
--- OUTSIDE RECORDS SUMMARY | ~2019-10-23 | XMS | Encounter Summary ---
Demographics + + + | Address | [address] | | | [place] [address] | + + + | Home Phone | | + + + | Preferred Language | Unknown | + + + | Marital Status | Single | + + + | [employer] Affiliation | 1077 | + + + | Race | Unknown | + + + | Ethnic Group | Unknown | + + + Author + + + | Author | [facility] | | | and Rainerana | + + + | Organization | [facility] | [...] [place], [place] | | | | | [address] | | + + + + + | Jelena Hill | ECON | [place] | | | | | [address] | | + + + + + Care Team Providers + +------+ + | Care Licensed Plumber Name | Role | Phone | + +------+ + | Ivy Sun | PCP | | + +------+ + Reason for Visit + + + | Reason | Comments | + + + | Records Request | for Pre-op | + + + Encounter Details +--------+ + + + + | Date | Type | Department | Care Team | Description | +--------+ + + + + | 07/10/ | Telephone | [facility] | Ivy Sun | Records Request (for | | 2012 | | MEDICINE [place] | JUSTYN Keating [address] | Pre-op) | | | | [address] | [place], [place] | | | | | [place], [place] | [address] | | | | | [address] | | | | | | [phone] | | | +--------+ + + + [...] [place] | | | | | | [address] | | | | | | | | +--------+---------+ + + + documented as of this encounter Visit Diagnoses Not on filedocumented in this encounter"
--- OUTSIDE RECORDS SUMMARY | ~2019-10-23 | XMS | Encounter Summary ---
Demographics + + + | Address | [address] | | | [place] [address] | + + + | Home Phone [...] + | Author | [facility] | | | and Rainerana | + + + | Organization | [facility] | | [...] [place], [place] | | | | | [address] | | + + + + + | Jelena Hill | ECON | [place] | | | | | [address] | | + + + + + Care Team Providers + +------+ + | Care Director Of Knowledge Management Name | Role | Phone | + +------+ + | Ivy Sun | PCP | | + +------+ + Reason for Visit +---------+ + | Reason | Comments | +---------+ + | Results | | +---------+ + Encounter Details +--------+ + + + + | Date | Type | Department | Care Team | Description | +--------+ + + + + | 05/07/ | Telephone | [facility] | Ivy Sun | Results | | 2012 | | MEDICINE [place] | JUSTYN Keating [address] | | | | | [address] | [place], [place] | | | | | [place], [place] | [address] | | | | | [address] | | | | | | [phone] | | | +--------+ + + + [...] [place] | | | | | | [address] | | | | | | | | +--------+---------+ + + + documented as of this encounter Visit Diagnoses Not on filedocumented in this encounter"
--- OUTSIDE RECORDS SUMMARY | ~2019-10-23 | XMS | Encounter Summary ---
Demographics + + + | Address | [address] | | | [place] [address] | + + + | Home Phone [...] [facility] | | | and Rainerana | + + + | Organization | [facility] | [...] [place], [place] | | | | | [address] | | + + + + + | Jelena Hill | ECON | [place] | | | | | [address] | | + + + + + Care Team Providers + +------+ + | Care Proposal Manager Writer Name | Role | Phone | + +------+ + | Ivy Sun | PCP | | + +------+ + Encounter Details +--------+ + + + + | Date | Type | Department | Care Team | Description | +--------+ + + + + | 11/03/ | Hospital | [facility] | Eleazar Mustafa | | | 2019 | Encounter | MED CTR OR INTRA OP | DO Liliana [address] | | | | [address] | [address] [facility] | | | | | [place], [place] | [place] [address] | | | | | [address] | [phone] | | | | | [phone] | | | +--------+ + + + [...] | | | | | | insulin ([facility]), | | | | | | | [...] | | | | | | insulin ([facility]), | | | | | | | [...] 0 | | | | (VITAMIN D3) [address] | mouth Once a week. | | [...] [place] | | | | | | [address] | | | | | | | [...] | | | | | | [facility] | | | | | | MEDICAL | | | | | | CENTER - | | | | | | LABORATORY | | + + + + + + | BUN | 14 | 7 - 18 mg/dL | [facility] | | | | | | [facility] | | | | | | MEDICAL | | | | | | CENTER - | | | | | | LABORATORY | | + + + + + + | Creatinine | 0.98 | 0.60 - 1.30 | [facility] | | | | | mg/dL | [facility] | | | [facility] | | MEDICAL | | | | | | CENTER - | | | | | | LABORATORY | | + + + + + + | eGFR if not | 57 (L)Comment: | >=60 | [facility] | | | | GLOMERULAR FILTRATION | mL/min/1.73m2 | [facility] | | | [facility] | RATE,ESTIMATED | | MEDICAL | | | | mL/min/1.69b2Arsl than | | CENTER - | | [...] [address] | [place] | [phone] | | [facility] | | [address] | | | - LABORATORY | | [...] St | [place] | | | [facility] | | [address] | | | - BLOOD BANK | [...] | | | | | WBC's | [facility] | | | | | | MEDICAL | | | | | | CENTER - | | | | | | LABORATORY | | + + + + + + | Absolute | 0.00 | 0.00 - 0.01 | [facility] | | | nRBC | | K/uL | [facility] | [...] ST. | [address] | [place] | [phone] | | [facility] | | [address] | | | - LABORATORY | | | | + + + + + Surgical Pathology Exam (11/03/2018 12:00 AM PST) + + | Specimen | + + | | + + + + + | Narrative | Performed At | + + + | SPECIMEN(S): A ENDOCERVICAL CURETTINGS SPECIMEN(S): B ENDOMETRIAL | [facility] | | CURETTINGS SPECIMEN SOURCE: A. ENDOCERVICAL CURETTINGS B. | INCYTE | | ENDOMETRIAL CURETTINGS CLINICAL HISTORY: N95.0 (postmenopausal | | | bleeding) FINAL PATHOLOGIC DIAGNOSIS: A. Endocervix, curettage: | | | - Fragments of glandular endocervical mucosa, negative for | | | dysplasia. B. Endometrium, curettage: - Endometrial polyps. - | | | Negative for dysplasia or malignancy. DD:[facility]:C2NR | | | MICROSCOPIC EXAMINATION: Histologic sections [...] received in formalin, labeled | | | "[place]," and designated as "endometrial curettings," consists of a | | | 2.7 x 2.2 x 0.6 cm aggregate of variegated trevizo-white to red fragments. | | | Entirely submitted in (B1). am:AMB:christopher PERFORMING LABORATORY: | | | The technical component was performed by [facility], [address] | | | [facility] [address] (Cat Hooker: Nadia Medina MD; | | | CLIA# [id number]). Professional interpretation was performed by | | | [facility], [facility], [address] | | | [place] [address] (Cat Hooker: Kody Willingham MD; | | | CLIA# [id number]). Diagnostician: Kody Willingham MD | | | [...] ONCE PRN, | | | Wheezing, Starting Sat11/03/18 at | | | 1104, For 1 [...] MIN PRN, | | | Pain, Starting Sat11/03/18 at | | | 1326, Maximum total [...]
--- OUTSIDE RECORDS SUMMARY | ~2019-10-23 | XMS | Encounter Summary ---
Demographics + + + | Address | [address] | | | [place] [address] | + + + | Home Phone | | + + + | Preferred Language | Unknown | + + + | Marital Status | Single | + + + | Caodaism Affiliation | 1077 | + + + | Race | Unknown | + + + | Ethnic Group | Unknown | + + + Author + + + | Author | [facility] | | | and Rainerana | + + + | Organization | [facility] | [...] [place], [place] | | | | | [address] | | + + + + + | Jelena Hill | ECON | [place] | | | | | [address] | | + + + + + Care Team Providers + +------+ + | Care Jewel Hole Gauger Name | Role | Phone | + +------+ + | Ivy Sun | PCP | | + +------+ + Encounter Details +--------+ + + + + | Date | Type | Department | Care Team | Description | +--------+ + + + + | 09/25/ | Abstract | [facility] [place] [facility] | Ivy Sun | | | 2018 | | [facility] | L, [facility] [address] | | | | | [address] | [address] [place] | | | | | [place] | [address] | | | | | [address] | | | | | | [phone] | | | +--------+ + + + [...] [place] | | | | | | [address] | | | | | | | | +--------+---------+ + + + documented as of this encounter Procedures + +--------+ + + + | Procedure Name | Priori | Date/Time | Associated Diagnosis | Comments | | | ty | | | | + +--------+ + + + | EXTERNAL: | Routin | 05/22/2011 | | Results for this | | COLONOSCOPY | e | | | procedure are in the | | | | | | results section. | + +--------+ + + + documented in this encounter Results EXTERNAL: COLONOSCOPY (05/22/2011) + + + + + + | Component | Value | Ref Range | Performed | Pathologist | | | | | At | Signature | + + + + + + | Colonoscopy | Tortuous and redundant | | | | | | colon, diverticulosis in | | | | | Impression, | the sigmoid colon. | | | | | External | Repeat 5-10 years. | | | | + + + + + + documented in this encounter Visit Diagnoses Not on filedocumented in this encounter"
--- OUTSIDE RECORDS SUMMARY | ~2019-10-23 | XMS | Encounter Summary ---
Demographics + + + | Address | [address] | | | [place] [address] | + + + | Home Phone [...] | Author | [facility] | | | and Rainerana | + + + | Organization | [facility] | | | and [...] [place], [place] | | | | | [address] | | + + + + + | Jelena Hill | ECON | [place] | | | | | [address] | | + + + + + Care Team Providers + +------+ + | Care Assistant Superintendent Name | Role | Phone | + +------+ + | Ivy Sun | PCP | | + +------+ + Reason for Visit +---------+ + | Reason | Comments | +---------+ + | Results | | +---------+ + Encounter Details +--------+ + + + + | Date | Type | Department | Care Team | Description | +--------+ + + + + | 04/05/ | Telephone | [facility] [place] [facility] | Ivy Sun | Results | | 2016 | | MEDICINE [place] | JUSTYN Keating [address] | | | | | [address] | [place] | | | | | [place] | [address] | | | | | [address] | | | | | | [phone] | | | +--------+ + + + [...] [place] | | | | | | [address] | | | | | | | | +--------+---------+ + + + documented as of this encounter Visit Diagnoses Not on filedocumented in this encounter"
--- OUTSIDE RECORDS SUMMARY | ~2019-10-23 | XMS | Encounter Summary ---
Demographics + + + | Address | [address] | | | [place] [address] | + + + | Home Phone [...] | Author | [facility] | | | and Rainerana | + + + | Organization | [facility] | [...] [place], [place] | | | | | [address] | | + + + + + | Jelena Hill | ECON | [place] | | | | | [address] | | + + + + + Care Team Providers + +------+ + | Care 3D Designer Name | Role | Phone | [...] [address] | [place] | | | | | [place], [place] | [address] | | | | | [address] | | | | | | [phone] | | | +--------+ + + + [...] | | | | [place] | | | | | | [address] | | | | | | | | +--------+---------+ + + + documented as of this encounter Visit Diagnoses + + | Diagnosis | + + | Urinary tract infection, site unspecified - Primary | + + documented in this encounter"
--- OUTSIDE RECORDS SUMMARY | ~2019-10-23 | XMS | Encounter Summary ---
Demographics + + + | Address | [address] | | | [place] [address] | + + + | Home Phone [...] Author | [facility] | | | and Rainerana | + + + | Organization | [facility] | | | and [...] [place], [place] | | | | | [address] | | + + + + + | Jelena Hill | ECON | [place] | | | | | [address] | | + + + + + Care Team Providers + +------+ + | Care Human Resources Trainee Name | Role | Phone | + [...] +--------+---------+ + + + | 06/03/ | Office | [facility] | Ivy Sun | Bilateral pulmonary | | 2019 | Visit | MEDICINE [place] | JUSTYN Keating [address] | embolism (HCC) | | | | [address] | [place] | (Primary Dx); | | | | [place] | [address] | Essential | | | | [address] | | hypertension | | | | [phone] | | | +--------+---------+ + + + [...] + + + | Blood Pressure | 142/90 | 06/03/2019 11:06 AM | | | | | PDT | | + + + + + | Pulse | 111 | 06/03/2019 11:06 AM | | | | | PDT | | + + + + + | Temperature | 35.6 C (96 F) | 06/03/2019 11:06 AM | | | | | PDT | | + + + + + | Respiratory Rate | 18 | 06/03/2019 11:06 AM | | | | | PDT | | + + + + + | Oxygen Saturation | 95% | 06/03/2019 11:06 AM | | | | | PDT | | + + + + + | Inhaled Oxygen | - | - | | | Concentration | | | | + + + + + | Weight | 132.8 kg (292 lb | 06/03/2019 11:06 AM | | | | 12.3 oz) | PDT | | + + + + + | Height | 170.2 cm (5' 7.01") | 06/03/2019 11:06 AM | | | | | PDT | | + + + + + | Body Mass Index | 45.84 | 06/03/2019 11:06 AM | | | | | PDT | | + + + + + documented in this encounter Patient Instructions Patient Instructions Sharita Burk, Light Oil Operator - 06/03/2019 11:00 AM PDTSend Kassandra yCmayrat message with blood pressure readings in 2 weeks. documented in this encounter Progress Notes Ivy Sun ARNP - 06/03/2019 11:00 AM PDTFormatting of this note might be differen t from the original. Subjective: Patient ID: Lucie Miller is a 68 y.o. female here for follow after hospitalization. Date of Admission: 05/19/2019 Date of Discharge: 05/21/2019 Facility Discharged from: [facility] Discharged to: Home Discharge diagnosis: Bilateral pulmonary embolism HPI Brief hospitalization history: Developed SOB on 05/16/19. The shortness of breath was incre asing and she was unable to walk further that 5 feet without having to stop. She also had an terior chest pressure/pain that would increase with deep breaths and coughing. The symptoms gradually worsened over 3 days until she went into ED in [place]. CT was done and she was found to have bilateral pulmonary embolism with mild right heart strain. She was in the ICU at [facility] in [place] for 5 days. Unknown reason for PE. Will need to be on her Cramen landy for 6 months, then will need coagulation studies. Interval history: Was given IV fluids and Lovenox injections in hospital. Was sent home wit h Eliquis 5 mg twice daily. She continues to have exertional SOB and is wanting a handicap parking permit temporary She was found to have hypovolemia and her Lisinopril was DC'd. She has not been checking he r home b/p. Anxiety: Patient is here for evaluation of anxiety.it really flared during her hospitalization and h as now started to settle down. Onset: ongoing Severity: controlled She has the following anxiety symptoms: feelings of losing control, irritable, racing thou ghts, shortness of breath. Troubles Sleeping: No Panic Attacks: No Patient denies: Suicidal thoughts Treatments Tried: paxil Have they been effective: Yes Past Medical History: Diagnosis Date Abnormal glandular Papanicolaou smear of cervix Anxiety state, unspecified Aortic root enlargement (HCC) 01/13/2014 Echo 12/18/13, LVEF 69%. Bronchitis, not specified as acute or chronic Cataract bilateral Depressed Disorder of bone and cartilage, unspecified Eczema Elevated hemoglobin A1c 10/31/2018 6.3 - 2018 6.1 - 2017 6.2 - 2015 Encounter for hearing conservation and treatment H/O diagnostic tests 12/14/2013 Echo 06/16/12, LVEF 65%. Holter Monitor 06/16/12. Nuclear Stress Test 06/25/12, LVEF 80%. Hearing loss History of compression fracture of spine 08/17/2015 Hyperlipidemia Insomnia, unspecified Menopausal and perimenopausal disorder 2003 OAB (overactive bladder) 11/28/2016 KAMERON (obstructive sleep apnea) uses CPAP Osteoporosis Other seborrheic keratosis Prediabetes 12/09/2013 Restless leg syndrome Rosacea 10/14/2013 Rotator cuff (capsule) sprain Routine gynecological examination Seborrheic dermatitis 10/14/2013 Smoker Sprain of ankle, unspecified site Social History Socioeconomic History Marital status: Single [...] Last attempt to quit: 11/19/2014 Years since quittin.5 Smokeless tobacco: Never Used Substance and Sexual Activity Alcohol use: Yes Alcohol/week: 0.0 oz Comment: rarely Drug use: No Sexual activity: Yes Partners: Male control/protection: None Social History Narrative Exercise: none Caffeine: diet Mt Dew 12 oz daily Living situation: with significant other Review of Systems Constitutional: Negative for fatigue and fever. HENT: Negative for voice change. Eyes: Negative for discharge. Respiratory: Positive for shortness of breath. Negative for cough and chest tightness. Cardiovascular: Negative for chest pain and palpitations. Gastrointestinal: Negative for abdominal pain, constipation and diarrhea. Endocrine: Negative for polydipsia. Genitourinary: Negative for dysuria, frequency and urgency. Musculoskeletal: Negative for gait problem. Skin: Negative for rash. Allergic/Immunologic: Negative for immunocompromised state. Neurological: Negative for facial asymmetry. Hematological: Bruises/bleeds easily (since starting on the eliquis. ). Psychiatric/Behavioral: The patient is nervous/anxious. "/x41 '0" No Known Allergies l; Objective: Physical Examination Pulse 111 | Temp 35.6 C (96 F) (Temporal) | Resp 18 | Ht 1.702 m (5' 7.01") | Wt 13 2.8 kg (292 lb 12.3 oz) | SpO2 95% | ? No | BMI 45.84 kg/m Physical Exam Constitutional: She is oriented to person, place, and time. She appears well-developed and well-nourished. No distress. HENT: Head: Normocephalic and atraumatic. Eyes: Conjunctivae are normal. Right eye exhibits no discharge. Left eye exhibits no discha rge. Neck: Neck supple. No JVD present. Cardiovascular: Regular rhythm and normal heart sounds. Tachycardia present. No murmur heard. Pulmonary/Chest: Effort normal and [...] is normal. Nursing note and vitals reviewed. Reviewed during this visit: - Emergency room and admission H&P notes reviewed - Progress notes, labs, and imaging from hospitalization was reviewed - Discharge summary reviewed - Pt was contacted my our staff for Telephone follow up within 2 days Assessment and Plan: 1. Bilateral pulmonary embolism (HCC) Discussed staying on Eliquis for 6 months Referral to Hematology for evaluation in 6 months once she has competed the Eliquis Reassured her that she will not develop more blood clots while on Eliquis and her lungs are improving. When she returns in 4 weeks we will recheck lab If her shortness of breath does not improve we will refer her to Pulmonology Advised her to follow up with Dr. Wolf her oim architect - ELIQUIS 5 MG tablet; Take 1 tablet by mouth 2 times daily. Dispense: 60 tablet; Refill: 4 2. Essential hypertension Discussed getting a blood pressure cuff for home and checking her b/p 2-3 days a week for t he next 2 weeks and notifying me of readings. If starting to elevate, will restart lisinopri l. Advised her to Readmission risk score: Readmission Risk Score Admission (Discharged) from 11/03/2018 in [facility] Readmission Risk 22 Transitional care management plan Verified communication made/attempted and documented with patient within 2 business days of discharge (and patient not transferred to SNF). Contacted: Patient Date of communication: 05/21/19 Discharge information reviewed, and the following assessments were made. Medication reconciliation Medication list updated and new medication list given to patient/caregivers in the after vi sit summary Went over rationale for treatment and assessed adherence. Referrals: No Community resources identified for patient/caregivers: Yes Durable medical equipment ordered: No Additional communication delivered/planned: Yes This report was transcribed using voice recognition software. Every effort was made to ensu re accuracy; however, inadvertent computerized paper cone machine operator errors may be present. Complexity of medical decision making: Moderate Follow-up: Return for Retun as previously scheduled on 07-27-19 , sooner if needed. Care instructions and warning signs were discussed. Medications per orders. Side effects discussed. Labs and investigations per orders. I Sandra Chirinos Assistant am acting as a scribe on behalf of, and in the pres ence of JUSTYN Rodriges. Electronically signed by: Sandra Chirinos 06/03/19 10:54 I, JUSTYN Babcock personally performed the services described in this documentati on, as scribed by RHODA Neri in my presence, and are both accurate and complete. Electronically Signed by: JUSYTN Babcock 06/03/19 16:27 documented in th is encounter Plan of Treatment +--------+---------+ + + + | Date | Type | Specialty | Care Team | Description | +--------+---------+ + + + | 11/23/ | Office | Family Medicine | Ivy Sun | | | 2019 | Visit | | JUSTYN [address] | | | | | | [place] [facility] [place] | | | | | | [address] | | | | | | | | +--------+---------+ + + + documented as of this encounter Visit Diagnoses + + | Diagnosis | + + | Bilateral pulmonary embolism (HCC) - Primary Other pulmonary embolism and infarction | + + | Essential hypertension Unspecified essential hypertension | + + documented in this encounter
--- OUTSIDE RECORDS SUMMARY | ~2019-10-23 | XMS | Encounter Summary ---
Demographics + + + | Address | [address] | | | [place] [address] | + + + | Home Phone [...] | [facility] | | | and Rainerana | + + + | Organization | [facility] | [...] [place], [place] | | | | | [address] | | + + + + + | Jelena Hill | ECON | [place] | | | | | [address] | | + + + + + Care Team Providers + +------+ + | Care Pouch Maker Name | Role | Phone | [...] + + | 03/06/ | Office | [facility] | Reymundo Guillory | KAMERON (obstructive | | 2017 | Visit | SLEEP DISORDER [address] | MD Ivy [address] | sleep apnea) | | | | [address] [place] | [address] [place] | | | | | [place] [address] | [place] [address] | | | | | [phone] | [phone] | | | | | | | [...] breaths does not meet criteria for an equipment mechanic ea or hypopnea. Sleep Architecture: Lights out [...] [place] | | | | | | [id number] | | | | | | | | +--------+---------+ + + + documented as of this encounter Visit Diagnoses + + | Diagnosis | + + | KAMERON (obstructive sleep apnea) Obstructive sleep apnea (adult) (pediatric) | + + documented in this encounter
--- OUTSIDE RECORDS SUMMARY | ~2019-10-23 | XMS | Encounter Summary ---
Demographics + + + | Address | [address] | | | [place] [address] | + + + | Home Phone [...] [facility] | | | and Rainerana | + + + | Organization | [facility] | | [...] [place], [place] | | | | | [address] | | + + + + + | Jelena Hill | ECON | [place] | | | | | [address] | | + + + + + Care Team Providers + +------+ + | Care Magistrate Assistant Name | Role | Phone | + +------+ + | Ivy Sun | PCP | | + +------+ + Encounter Details +--------+ + + + + | Date | Type | Department | Care Team | Description | +--------+ + + + + | 07/07/ | Hospital | [facility] | Ivy Sun | Right foot injury, | | 2013 | Encounter | [facility] | L, LEAD WELDER [address] | initial encounter | | | | [address] [place] | [place] [place], [place] | | | | | [place], [place] | [address] | | | | | [address] | | | | | | [phone] | | | +--------+ + + + [...] tablet by | 90 | 1 | 07/07/20 | | | (PRINIVIL, ZESTRIL) | mouth every morning. | tablet | | 14 | 5 | | 10 mg tablet | | [...] nortriptyline | Take 3 capsules by | 90 | 5 | 07/07/20 | | | (PAMELOR) 10 MG | mouth nightly. | capsule | | 14 | 5 | | capsule | | | | | | + + + +---------+ + + | paroxetine (PAXIL) | Take 1 tablet by | 90 | 1 | 05/13/20 | | | 40 MG tablet | mouth Daily. | tablet | | 13 | 4 | + + + +---------+ + + | rOPINIRole | Take 0.5 tablets by | 90 | 3 | 07/07/20 | | | (REQUIP) 2 MG | mouth nightly. | tablet | | 14 | 5 | | tabletIndications: | | | | [...] [place] | | | | | | [address] | | | | | | | | +--------+---------+ + + + documented as of this encounter Procedures + +--------+ + + + | Procedure Name | Priori | Date/Time | Associated Diagnosis | Comments | | | ty | | | | + +--------+ + + + | XR FOOT RIGHT 3 + VW | Routin | 07/07/2014 | Right foot injury, | Results for this | | | e | 11:33 AM | initial encounter | procedure are in the | | | | PDT | | results section. | + +--------+ + + + documented in this encounter Results XR Foot Right 3 [...] + | Nic Sheffield Results In - 07/07/2014 3:25 PM PDT [...] + | MISCELLANEOUS LAB | | | [phone] | + +---------+ + + | MISCELANIOUS LAB | | | [phone] | + +---------+ + + documented in this encounter Visit Diagnoses + + | Diagnosis | + + | Right foot injury, initial encounter | + + documented in this encounter"
--- OUTSIDE RECORDS SUMMARY | ~2019-10-23 | XMS | Encounter Summary ---
Demographics + + + | Address | [address] | | | [place] [address] | + + + | Home Phone [...] Author | [facility] | | | and Rainerana | + + + | Organization | [facility] | | | and Raienrana | [...] [place], [place] | | | | | [address] | | + + + + + | Jelena Hill | ECON | [place] | | | | | [address] | | + + + + + Care Team Providers + +------+ + | Care Mining Professionals Name | Role | Phone | + [...] | Required | | fracture of | INFECTION CONTROL SPECIALIST [address] | | | | | thoracic | [address] | [place] [address] | | | | | vertebra, | [place], | [place] | | | | | non-traumati | [place] [address] | [address] Phone: | | | | | c, initial | Phone: | [phone] | | | | | encounter | [phone] | Fax: | | | | | ([facility]) | Fax: | [phone] | | | | | | [phone] | | +--------+ + + + + + Reason for Visit +---------+ + | Reason | Comments | +---------+ + | Results | | +---------+ + Encounter Details +--------+ + + + + | Date | Type | Department | Care Team | Description | +--------+ + + + + | 08/29/ | Telephone | [facility] | Ivy Sun | Results | | 2014 | | [facility] | L, INFECTION CONTROL SPECIALIST [address] | | | | | [address] | [place], [place] | | | | | [place], [place] | [address] | | | | | [address] | | | | | | [phone] | | | +--------+ + + + [...] [place] | | | | | | [address] | | | | | | | [...]
--- OUTSIDE RECORDS SUMMARY | ~2019-10-23 | XMS | Encounter Summary ---
Demographics + + + | Address | [address] | | | [place] [address] | + + + | Home Phone [...] Author | [facility] | | | and Rainerana | + + + | Organization | [facility] [...] [place], [place] | | | | | [address] | | + + + + + | Jelena Hill | ECON | [place] | | | | | [address] | | + + + + + Care Team Providers + +------+ + | Care Door Furring Installer Name | Role | Phone | [...] | | Required | Diabetes | | SEWING INSPECTOR [address] | Education | | | | Services | | [address] | [address] | | | | | | [place], | [place], | | | | | | [place] [address] | [place] | | | | | | Phone: | [phone] | | | | | | [phone] | Phone: | | | | | | Fax: | [phone] | | | | | | [phone] | Fax: | | | | | | | [phone] | +--------+ + + + + + [...] + + | 04/07/ | Office | [facility] | Ivy Sun | Prediabetes (Primary | | 2013 | Visit | [facility] [place] | L, JUSTYN [address] | Dx); Postmenopausal | | | | [address] | [address] [place] | vaginal bleeding; | | | | [place] | [address] | Vitamin D | | | | [address] | | deficiency; | | | | [phone] | | Hyperlipidemia; | | | | [...] Patient requested DM education class at [facility]. Referral placed. Ivy Tran ARNP - 04/07/2014 [...] US about 5 years ago. Done in [place]. Had endometria l biopsy several years ago. [...] Normal TM's and external ear canals, and UGASHIK, wears hearing aids Nose: Nares normal Throat: [...] tenderness. Alessandro Davenport RN in room for manager art. Extremities: Extremities normal, atraumatic, no cyanosis or [...] was also seen a conjunction by our foundry manager. I did review her note and discus sed patient's progress with her [id number]. - Comprehensive Metabolic Panel; Future - Hemoglobin [...] Sooner prn. This note was dictated using PicLyf voice recognition software. Every attempt was made [...] [place] | | | | | | [address] | | | | | | | [...] + + | Performing | Address | City/[facility] | Phone Number | | Organization | | | | + +---------+ + + | MISCELLANEOUS LAB | | | [phone] | + +---------+ + + | MISCELANIOUS LAB | | | [phone] | + +---------+ + + documented in [...]
--- OUTSIDE RECORDS SUMMARY | ~2019-10-23 | XMS | Encounter Summary ---
Demographics + + + | Address | [address] | | | [place] [address] | + + + | Home Phone | | + + + | Preferred Language | Unknown | + + + | Marital Status | Single | + + + | Lutheran Affiliation | 1077 | + + + | Race | Unknown | + + + | Ethnic Group | Unknown | + + + Author + + + | Author | [facility] | | | and Rainerana | + + + | Organization | [facility] [...] [place], [place] | | | | | [address] | | + + + + + | Jelena Hill | ECON | [place] | | | | | [address] | | + + + + + Care Team Providers + +------+ + | Care Piece Meat Trimmer Name | Role | Phone | + [...] + | 01/28/ | Refill | [facility] | Reymundo Guillory | Medication Refill | | 2018 | | SLEEP DISORDER [address] | MD Ivy [address] | | | | | [address] [place] | [place] | | | | | [place] [address] | [place] [address] | | | | | [phone] | [phone] | | | | | | | | +--------+--------+ + + + [...] [place] | | | | | | [address] | | | | | | | | +--------+---------+ + + + documented as of this encounter Visit Diagnoses Not on filedocumented in this encounter"
--- OUTSIDE RECORDS SUMMARY | ~2019-10-23 | XMS | Encounter Summary ---
Demographics + + + | Address | [address] | | | [place] [address] | + + + | Home Phone | | + + + | Preferred Language | Unknown | + + + | Marital Status | Single | + + + | Worship Affiliation | 1077 | + + + | Race | Unknown | + + + | Ethnic Group | Unknown | + + + Author + + + | Author | and [facility] | | | and Rainerana | + + + | Organization | [facility] | | [...] [place], [place] | | | | | [address] | | + + + + + | Jelena Hill | ECON | [place] | | | | | [address] | | + + + + + Care Team Providers + +------+ + | Care Assistant Manager Bilingual Name | Role | Phone | + [...] + + | 08/18/ | Office | [facility] | Hiren Mai PA | KAMERON on CPAP (Primary | | 2018 | Visit | SLEEP DISORDER [address] | [address] | Dx) | | | | [address] [place] | [place] | | | | | [place] [address] | [address] | | | | | [phone] | | | +--------+---------+ + + + [...] face mask DME: [facility] [place] pressure: 13-20 cm Median: 13.8 cm 95%: [...] Exam Assessment: Problem #1: OBSTRUCTIVE SLEEP APNEA ([id number]) This is controlled with CPAP. She is [...]
--- OUTSIDE RECORDS SUMMARY | ~2019-10-23 | XMS | Encounter Summary ---
Demographics + + + | Address | [address] | | | [place] [address] | + + + | Home Phone [...] | Author | [facility] | | | and Rainerana | + + + | Organization | [facility] | | [...] [place], [place] | | | | | [address] | | + + + + + | Jelena Hill | ECON | [place], [place] | | | | | [address] | | + + + + + Care Team Providers + +------+ + | Care Log Tumbler Name | Role | Phone | + +------+ + PCP | Unavailable | + +------+ + Encounter Details +--------+ + + + + | Date | Type | Department | Care Team | Description | +--------+ + + + + | 06/09/ | Hospital | [facility] | | | | 2006 | Encounter | [facility] | | | | | | [address] | | | | | | [place] | | | | | | [address] | | | | | | [phone] | | | +--------+ + + + [...] [place] | | | | | | [address] | | | | | | | | +--------+---------+ + + + documented as of this encounter Visit Diagnoses Not on filedocumented in this encounter"
--- OUTSIDE RECORDS SUMMARY | ~2019-10-23 | XMS | Encounter Summary ---
Demographics + + + | Address | [address] | | | [place] [address] | + + + | Home Phone [...] | [facility] | | | and Rainerana | + + + | Organization | [facility] [...] [place], [place] | | | | | [address] | | + + + + + | Jelena Hill | ECON | [place] | | | | | [address] | | + + + + + Care Team Providers + +------+ + | Care Game Breeding Farm Manager Name | Role | Phone | [...] back | Calderon E, | [address] | | | | | pain | PA-C [address] | [place], | | | | | Radiculopath | [address] | [place] | | | | | y, lumbar | [address] | [address] | | | | | region | [place], | Phone: | | | | | Procedures | [place] [address] | [phone] | | | | | MRI Lumbar | Phone: | Fax: | | | | | Spine wo | [phone] | [phone] | | | | | Contrast [place] | Fax: | | | | | | MRI, LUMBAR | [phone] | | | | | | SPINE | | | +--------+--------+ + + + + Reason for Visit + + + | Reason | Comments | + + + | Back Pain | | + + + Evaluate & Treat [...] | T12 | Ivy Keating, | Lorenzo Galenaa DO | | | Required | | compression | 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 [address] | [address] | | | | | fracture, | [address] | [address] | | | | | initial | [place], | [place] | | | | | encounter | [place] [address] | [address] Phone: | | | | | ([facility]) | Phone: | [phone] | | | | | | [phone] | Fax: | | | | | | Fax: | [phone] | | | | | | [phone] | | +--------+ + + + + + Encounter Details +--------+---------+ + + + | Date | Type | Department | Care Team | Description | +--------+---------+ + + + | 09/05/ | Office | [facility] | Calderon Shaw, | Lumbar radiculopathy | | 2016 | Visit | NEUROSURGERY [address] | PA-C [address] | (Primary Dx); Low | | | | [address] | [address] [place] | back pain | | | | [place], [place] | [place] [address] | potentially | | | | [address] | [phone] | associated with | | | | [phone] | | spinal stenosis; T12 | | | | | | compression | | | | | | fracture, initial | | | | | | encounter (HCC) | +--------+---------+ + + + Social History [...] + + + | Blood Pressure | 101/70 | 09/05/2016 9:17 AM | | | | | PST | | + + + + + | Pulse | 119 | 09/05/2016 9:17 AM | | | | | PST [...] + + + + | Weight | 128.4 kg (283 lb) | 09/05/2016 9:17 AM | | | | | PST | | + + + + + | Height | 170.2 cm (5' 7") | 09/05/2016 9:17 AM | | | | | PST | | + + + + + | Body Mass Index | 44.32 | 09/05/2016 9:17 AM | | | | | PST | | + + + + + documented in this encounter Patient Instructions Patient Instructions Calderon Shaw PA - 09/05/2016 10:12 AM PSTPlease continue to mode rate your activities as tolerated. Once your MRI and x-rays are completely I will see you cande humphries in my office to review results and discuss treatment options. documented in this encounter Progress Notes Sierra Eng, Automatic Gluing Machine Operator - 09/05/2016 9:35 AM PSTFormatting of this note might b e different from the original. JAVON Rowe [address] [facility], [address] [place] [address] FAX: NEUROSURGERY HISTORY AND PHYSICAL EXAMINATION CHIEF COMPLAINT: Chief Complaint Patient presents with Back Pain HISTORY OF PRESENT ILLNESS: The patient is a 66 y.o. female with the complaint of back junior n symptoms that began 2 months ago. 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 . The symptoms have been unchanged. She rates the pain as moderate. The symptoms are contin uous. She describes the pain as aching. Patient states she has a long history of moderately severe restless leg syndrome and occasi onal sharp shooting pain down her leg at night. This has gone on for years. It does not af fect her quality of life significantly. The daytime patient does not experience any of the symptoms. The symptoms have not changed as a result of her recent back injury. She still d enies any pain, tingling, or numbness in her legs. Patient is not able to walk for more than 10 minutes at a time. Patient states that the pr imary limiting factor from her walking further his back pain. She states that her legs do n ot limit her in pain or weakness from walking further distances. Prior to her back injury s he states she can easily walk for half hour to one hour without difficulty. The patient does not report any change in bowel or bladder function recently. Her symptoms improve with rest. Her symptoms worsen with standing. She has tried NSAIDS and Muscle relaxers. The patient is currently taking opioids intermit tently. These are left over from her knee surgery from a couple years ago. These measures Have provided partial and temporary relief. PAST MEDICAL HISTORY: Past Medical History Diagnosis [...] Surgical History Procedure Laterality Date Lumbar laminectomy 1992 Dr. Harris Gastroplasty 1986 Bunionectomy Right 1987 [...] twice daily. 790.2 9 100 each 5 lidocaine (LIDODERM) 5% patch Place 1 patch onto the skin Daily. lisinopril (PRINIVIL, ZESTRIL) 5 mg tablet Take 1 tablet by mouth Daily. 90 tablet 1 Meloxicam (MOBIC PO) Take by mouth. metFORMIN (GLUCOPHAGE) 500 mg tablet TAKE ONE TABLET BY MOUTH DAILY WITH BREAKFAST 90 t ablet 0 methocarbamol (ROBAXIN) 500 mg tablet Take 1 tablet by mouth 4 times daily. 120 tablet 0 nortriptyline (PAMELOR) 10 MG capsule TAKE THREE CAPSULES BY MOUTH NIGHTLY 270 capsule 0 PARoxetine (PAXIL) 40 MG tablet TAKE [...] patient reports that she quit smoking about 21 months ago. Her smoking use included Ci garettes. She started smoking about 16 years ago. She has a 7.5 pack-year smoking history. S he has never used smokeless tobacco. She reports that she drinks alcohol. She reports that s he does not use illicit drugs. FAMILY HISTORY: [...] Maternal Uncle Diabetes Maternal Aunt REVIEW OF SYSTEMS: GENERALLY: No fever, no night sweats, no [...] present illness. In addition, the patient has muscle aching, change in walk, pain in back and neck , back injury. PSYCHIATRIC: + depression, + sleep disorders, no anxiety, no bipolar disorder, no psychoti c episodes. CARDIOVASCULAR: No heart attacks, no heart murmur, + heart fluttering, no chest pain, no a nkle swelling. LUNG DISEASE: No shortness of breath, no cough, no tuberculosis, no bloody cough, no asth ma, no emphysema/COPD. GASTROINTESTINAL: No bowel disease, no nausea or vomiting, no rectal bleeding, no constipa tion, no stool incontinence, no liver disease, no gallbladder disease, no abdominal pain, no ulcers. KIDNEY DISEASE: + urinary frequency, no painful or difficult urination, + incontinence. ENDOCRINE: + diabetes, no thyroid disease, + osteopenia or osteoporosis, no breast drainag e. SKIN: No breast lumps, + skin changes, no rashes, no itches. HEMATOLOGIC/LYMPHATIC: No enlarged lymph nodes, no easy or unusual bleeding, no personal h istory of cancer. RHEUMATOLOGIC: No joint arthritis, no rheumatoid arthritis. PHYSICAL EXAMINATION: Blood pressure 101/70, pulse 119, height 1.702 m (5' 7"), weight 128.368 kg (283 lb), not c urrently . Body mass index is 44.31 kg/(m^2). GENERAL: Lucie Miller is in no acute distress with unlabored respirations. The patien t does not appear uncomfortable throughout the exam today. HEENT: Head: Normocephalic/atraumatic with no areas of recent trauma. Eyes: Normal sclerae without icterus. Ears: No drainage or tenderness. Nasopharnyx: Clear without drainage. Oropharnyx: Clear without erythema. NECK (ANTERIOR): Supple and without palpable masses. CHEST: Clear to ausculation without crackles or wheeze. HEART: Regular rate and rhythm without murmurs. ABDOMEN: Soft, non-tender, non-distended, and without palpable masses. The patient is obese . SPINE: There is no tenderness of there cervical or thoracic spine. The lumbar spine shows there is tenderness in the midline of the L4, L5, S1 levels. To pal pation, there is significant bilateral myofascial tenderness. There is no significant pain to provacative testing of the SI joint. There is no major deformity noted. EXTREMITIES: No cyanosis, clubbing, or edema. Distal pulses are palpable. NEUROLOGICAL EXAM: MENTAL STATUS: The patient is awake, alert, and oriented. She follows simple and complex commands. Her speech is fluent, she comprehends speech well, and she repeats well. She has no apparent deficits with short or lobsterman memory. CRANIAL NERVES: Fundoscopic Exam: The optic [...] Intrinsics 5 5 Ulnar Intrinsics 5 5 Supervisor Chemical Strength 5 5 Hip Flexion 5 5 Hip Extension 5 5 Knee Flexion 5 5 Knee Extension 5 5 Dorsiflexion 4+ 5 Extensor Hallicus Longus 5 5 Plantarflexion 5 5 SENSORY EXAM: Decreased sensation over right lateral malleolus region. REFLEXES: (2 OR 2+ IS NORMAL) REFLEX: RIGHT LEFT BICEPS 4+ 4+ BRACHIORADIALIS 4+ 4+ TRICEPS 4+ 4+ PATELLAR 4+ 4+ ACHILLES 4+ 4+ GORDON'S ABSENT ABSENT PLANTAR DOWNGOING DOWNGOING GAIT: Gait is steady. PERIPHERAL NERVE/MISC: Tinel is negative at the wrists and elbows bilaterally. Phalen is negative. Straight leg raise is negative bilaterally. Adriel's test of the hips is negative bilaterally. TEST AND RADIOGRAPHIC REVIEW: The patient's imaging was reviewed in detail with the patient today during the visit. The thoracic MRI from 2016 shows chronic stable T8 compression fracture along with a subacute T1 2 compression fracture. There is no evidence of foraminal stenosis as a result of this. I did compare these to the thoracic MRI from 2015 which showed the old T8 compression fracture but no T12 compression fracture. Evidence of thoracic scoliosis is present on both but the re has been no progression initiated. Thoracic x-rays show Impression fracture of T12.. ASSESSMENT: NEUROSURGICAL DIAGNOSES: Encounter Diagnoses Name Primary? Lumbar radiculopathy Yes Low back pain potentially associated with spinal stenosis T12 compression fracture, initial encounter (HCC) GENERAL DIAGNOSES: Past Medical History Diagnosis Date [...] of compression fracture of spine 08/17/2015 PLAN: Although her referral today was from the observed T12 compression fracture she has no pain in this area and the MRI does not suggest that there is any degree of spinal stenosis. Ther efore, I do not feel that this needs further attention or evaluation. She does however have moderate to severe low back pain that has continued since lifting the elderly patient in May. There has not been an evaluation of this to this point in time. Therefore, I am ordering an x-ray of her lumbar spine. In addition, due to her inability to walk more than 10 minutes and limitation because of her previous laminectomy roughly 20 y ears ago I'm ordering an MRI of her lumbar spine. This will help me evaluate whether or not significant spinal stenosis is present, whether she has ruptured a disc, whether or not the re is significant facet arthropathy, and whether or not there is any instability in her spin e. This information will help guide treatment options for her. If there are any questions I will see her on an as-needed basis. Otherwise, we will proceed as recommended. ELECTRONICALLY SIGNED BY: JAVON Rowe, 09/05/2016 10:25 documented in this encounter Plan of Treatment [...] [place] | | | | | | [address] | | | | | | | | +--------+---------+ + + + documented as of this encounter Results XR Lumbar Spine 4 + Vw (09/24/2016 12:41 PM PST) + + | Specimen | + + | | + + + + + | Narrative | Performed At | + + + | EXAM:XR LUMBAR SPINE 4 + VW CLINICAL HISTORY: Back pain | [facility] | | COMPARISON: MRI of the same day. Outside lumbar spine radiograph | . [facility] | | dated July 16, 2016. [...] | + + + + + | [facility] | [address] | [place] | [phone] | | [facility] | | [address] | | | - IMAGING | | | | + + + + + MRI Lumbar Spine wo Contrast (09/24/2016 11:57 AM PST) + + | Specimen | + + | | + + + + + | Narrative | Performed At | + + + | MRI LUMBAR SPINE WITHOUT CONTRAST: 09/24/2016 11:10 AM CLINICAL [facility] | | HISTORY: Low back pain with radicular symptoms COMPARISON: | [facility] | | Thoracic MRI 08/01/2016; lumbar radiographs 07/16/2016 TECHNIQUE: In | [facility] | | the 3T scanner multiplanar, multisequence [...] ST. | [address] | [place], [place] | [phone] | | [facility] | | [address] | | | - IMAGING | | | | + + + + + documented in this encounter Visit Diagnoses + + | Diagnosis | + + | Lumbar radiculopathy - Primary Thoracic or lumbosacral neuritis or radiculitis, | | unspecified | + + | Low back pain potentially associated with spinal stenosis | + + | T12 compression fracture, initial encounter (HCC) | + + documented in this encounter
--- OUTSIDE RECORDS SUMMARY | ~2019-10-23 | XMS | Encounter Summary ---
Demographics + + + | Address | [address] | | | [place] [address] | + + + | Home Phone | | + + + | Preferred Language | Unknown | + + + | Marital Status | Single | + + + | Oriental Orthodox Affiliation | 1077 | + + + | Race | Unknown | + + + | Ethnic Group | Unknown | + + + Author + + + | Author | [facility] | | | and Rainerana | + + + | Organization | [facility] [...] [place], [place] | | | | | [address] | | + + + + + | Jelena Hill | ECON | [place] | | | | | [address] | | + + + + + Care Team Providers + +------+ + | Care Cotton Weigher Name | Role | Phone | + +------+ + | Ivy Sun | PCP | | + +------+ + Encounter Details +--------+ + + + + | Date | Type | Department | Care Team | Description | +--------+ + + + + | 11/26/ | Hospital | [facility] | Ivy Sun | Function kidney | | 2017 | Encounter | [facility] | L, TECHNICAL INTERN [address] | decreased; Essential | | | | [address] [place] | [address] [place], [place] | hypertension | | | | [place], [place] | [address] | | | | | [address] | | | | | | [phone] | | | +--------+ + + + [...] [place] | | | | | | [address] | | | | | | | [...] mL/min/1.73m2 | [facility] | | | [place] | | | MEDICAL | | | [...] [address] | [place] | [phone] | | [facility] | | [address] | | | - LABORATORY | | | | + + + + + documented in this encounter Visit Diagnoses + + | Diagnosis | + + | Function kidney decreased Unspecified disorder of kidney and ureter | + + | Essential hypertension Unspecified essential hypertension | + + documented in this encounter"
--- OUTSIDE RECORDS SUMMARY | ~2019-10-23 | XMS | Encounter Summary ---
Demographics + + + | Address | [address] | | | [place] [address] | + + + | Home Phone [...] Author | Merged With [facility] | | | and Rainerana | + + + | Organization | Merged With [facility] | | | and [...] [place], [place] | | | | | [address] | | + + + + + | [address] | ECON | [place] | | | | | [address] | | + + + + + Care Team Providers + +------+ + | Care Envelope Patternmaker Name | Role | Phone | + +------+ + | Ivy Sun | PCP | | + +------+ + Reason for Visit + + + | Reason | Comments | + + + | Hyperlipidemia | | + + + | Pre-Diabetes | | + + + Encounter Details +--------+---------+ + + + | Date | Type | Department | Care Team | Description | +--------+---------+ + + + | 03/06/ | Office | [facility] | Ivy Sun | Essential | | 2017 | Visit | [facility] | L, [facility] [address] [address] | hypertension | | | | [address] | [place], [place] | (Primary Dx); Mixed | | | | [place], [place] | [address] | hyperlipidemia; | | | | [address] | | Prediabetes; Need | | | | [phone] | | for hepatitis C | | | | | | screening test; Rash | +--------+---------+ + + + Social History [...] + + + | Blood Pressure | 132/74 | 03/06/2017 9:50 AM | | | | | PDT | | + + + + + | Pulse | 113 | 03/06/2017 9:50 AM | | | | | PDT | | + + + + + | Temperature | 36.6 C (97.9 F) | 03/06/2017 9:50 AM | | | | | PDT | | + + + + + | Respiratory Rate | 20 | 03/06/2017 9:50 AM | | | | | PDT | | + + + + + | Oxygen Saturation | 93% | 03/06/2017 9:50 AM | | | | | PDT | | + + + + + | Inhaled Oxygen | - | - | | | Concentration | | | | + + + + + | Weight | 133.6 kg (294 lb 8 | 03/06/2017 9:50 AM | | | | oz) | PDT | | + + + + + | Height | 170.2 cm (5' 7") | 03/06/2017 9:50 AM | | | | | PDT | | + + + + + | Body Mass Index | 46.13 | 03/06/2017 9:50 AM | | | | | PDT | | + + + + + documented in this encounter Progress Notes Ivy Sun, JUSTYN - 03/06/2017 9:59 AM PDTFormatting of this note might be differen t from the original. Lucie Miller is a 66 y.o. female Chief Complaint: Hyperlipidemia and Pre-Diabetes HPI Hypertension: Control and Compliance Medication compliance: Lisinopril 5 mg Home Blood Pressures: Highest at home is 128/80 and lowest is 111/70 Exercise: No BP: 132/74 mmHg BP Readings from Last 3 Encounters: 03/06/17 132/74 02/12/17 111/81 01/03/17 130/97 Pt denies: No headache, visual symptoms, neurologic problems, syncope No chest pain, palpitations, ROSAS, orthopnea, PND, peripheral edema No side effects from any antihypertensive medications HYPERLIPIDEMIA: Patient is compliant with medications. Simvastatin 10 mg tablet Diet: Low fat, low carb dietary compliance:No Denies side effects of medications. Denies Myalgias, abdominal pain, jaundice, constipatio n. No evidence of medication toxicity Denies chest pain, shortness of breath Additional measures started by the patient to reduce lipids include: aerobic exercise :No weight reduction: Vitals 08/28/2016 09/05/2016 11/26/2016 01/03/2017 01/09/2017 Weight 285 lbs 5 oz 283 lbs 287 lbs 293 lbs 289 lbs Vitals 02/12/2017 03/06/2017 Weight 294 lbs 8 oz 294 lbs 8 oz Lab Results Component Value Date LDL 90 08/28/2016 PREDIABETES : Control and Compliance Metformin 500 mg daily with breakfast Diet: She understands dietary principles and is following Her diet appropriately. Exercise: No He is checking home blood sugars. Home fasting blood sugars average: 120 Post Prandial : Not checking Last dilated Eye Exam:11/2016 On an JENIFER / ARB: yes On a Statin: yes Body mass index is 46.11 kg/(m^2). Wt Readings from Last 3 Encounters: 03/06/17 133.584 kg (294 lb 8 oz) 02/12/17 133.584 kg (294 lb 8 oz) 01/09/17 131.09 kg (289 lb) BP: 132/74 mmHg Denies/reports: Side effects of Medications Hypoglycemic symptoms: Denies sweats, nausea, confusion, and weakness. Hyperglycemic symptoms: Denies polyuria, polydipsia, and blurred vision. No sensory loss is reported. Self foot exams are being performed. No vision problems No nausea/vomiting/bloating, No lightheadedness/orthostasis No infections, ulcerations, or sores Labs Lab Results Component Value Date HBA1C 6.2* 08/28/2016 HBA1C 5.5 11/10/2014 HBA1C 6.2* 10/14/2013 Lab Results Component Value Date GLUF 111 01/16/2014 Patient complains of red spots 2 months ago on arms and last about a week . Itchy and has been scratching PREVENTIVE CARE/PRIOR VISITS 1. Any recommendations from Health Maintenance: Hep C screening Preventative Services TOPIC LAST DONE NEXT DUE Hepatitis C Screening 1950 Influenza Imm (Yearly) 07/24/2016 Colon Cancer Screening (Colonoscopy Every 10 Years 50-75) 05/20/2011 05/20/2021 Breast Cancer Screening (Mamm Q2 Years 50-74) 04/10/2016 04/10/2018 Cervical Cancer Screening (Pap Every 3 Years 21-64 ) 06/01/2015 06/01/2018 Dtap/Tdap/Td Imm 07/24/2016 07/24/2026 Zostavax Imm 05/13/2013 2. Any immunizations necessary: None Immunization History Administered Date(s) Administered INFLUENZA PF 18 Y OR >,TRIVALENT RECOMBINANT 08/25/2012, 10/14/2013 INFLUENZA PF QUAD(PED/ADOL/ADULT),PSKT or VIAL 11/10/2014, 08/17/2015, 07/24/2016 PNEUMOCOCCAL POLYSACCHARIDE 23-VALENT (PPSV23) 08/25/2012 TDAP, (ADOL/ADULT) 01/15/2007, 07/24/2016 ZOSTER, 1 DOSE (ADULT) 05/13/2013 3. Has patient been involved in medical events/hospitalizations since their last visit: No No Known Allergies Medications: Patient Reported Taking Dosage aspirin (ASPIRIN ADULT LOW STRENGTH) 81 MG EC tablet (Taking) Take 81 mg by mouth Daily. Number of times this order has been changed since signin Order Audit [place] Calcium Carb-Cholecalciferol (CALCIUM 1000 + D) 1000-800 MG-UNIT TABS (Taking) Take 1 tab let by mouth Daily. Number of times this order has been changed since signin Order Audit [place] FreeStyle Lancets MISC (Taking) Test blood sugar twice daily. 790.29 Number of times this order has been changed since signin Order Audit [place] gabapentin (NEURONTIN) 600 MG tablet (Taking) Take 1 tablet by mouth nightly. glucose blood test strips (FREESTYLE LITE) strip (Taking) Test blood sugar twice daily . 790.29 Number of times this order has been changed since signin Order Audit [place] lisinopril (PRINIVIL, ZESTRIL) 5 mg tablet (Taking) Take 1 tablet by mouth Daily. meclizine (ANTIVERT) 25 mg tablet (Taking) Take 1 tablet by mouth 3 times daily as needed . metFORMIN (GLUCOPHAGE) 500 mg tablet (Taking) TAKE [...] has been changed since signin Order Audit [place] UNCODED MEDICATION (Taking) Wear at all times while sleeping. Number of times this order has been changed since signin Order Audit [place] Past Medical History She has a past [...] enlargement (HCC) (01/13/2014); Prediabetes (12/09/2013); Cataract (); History of co mpression fracture of spine (08/17/2015); and OAB (overactive bladder) (11/28/2016). Past Surgical History She has past surgical history that includes lumbar laminectomy (1991); gastroplasty (1985); Bunionectomy (Right, 1986); Toe Surgery; Endometrial biopsy (2001); Knee arthroscopy (Left, 2005); Total knee arthroplasty (Left, 07/15/13); and Dilation and curettage of uterus (2013). 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 HENT: Positive for postnasal drip. Negative for ear discharge, ear pain, facial swelling, r hinorrhea and sinus pressure. Respiratory: Positive for wheezing. Negative for chest tightness and shortness of breath. Gastrointestinal: Negative for vomiting, abdominal pain, diarrhea, constipation and blood i n stool. Neurological: Positive for light-headedness. Negative for dizziness. Objective: Filed Vitals: 03/06/17 0950 BP: 132/74 Pulse: 113 Temp: 36.6 C (97.9 F) TempSrc: Temporal Resp: 20 Height: 1.702 m (5' 7") Weight: 133.584 kg (294 lb 8 oz) SpO2: 93% Physical Exam Constitutional: She is oriented to person, place, and time. She appears well-developed. No distress. Morbidly obese HENT: Head: Normocephalic and atraumatic. Eyes: Conjunctivae are normal. Right eye exhibits no discharge. Left eye exhibits no discha rge. Neck: Neck supple. No JVD present. Carotid bruit is not present. Cardiovascular: Normal rate, regular rhythm and normal heart sounds. No murmur heard. Trace of pedal edema Pulmonary/Chest: Effort normal and breath sounds normal. No respiratory distress. She has n o wheezes. She has no rales. Lymphadenopathy: She has no cervical adenopathy. Neurological: She is alert and oriented to person, place, and time. Skin: Skin is warm and dry. She is not diaphoretic. Flat red skin discoloration 3 mm on right forearm x 3, Psychiatric: She has a normal mood and affect. Her behavior is normal. Nursing note and vitals reviewed. Ortho Exam Results for orders placed or performed in visit on 01/09/17 ECG 12 lead Result Value Ref Range VENTRICULAR RATE EKG 109 BPM ATRIAL RATE 109 BPM P-R INTERVAL 144 ms QRS DURATION 130 ms Q-T INTERVAL 376 ms Q-T INTERVAL (CORRECTED) 506 ms P WAVE AXIS 62 degrees QRS AXIS 10 degrees T AXIS 27 degrees INTERPRETATION TEXT Sinus tachycardia Right bundle branch block Abnormal ECG No previous ECGs available Confirmed by MONAE OLSEN MD ([id number]) on 01/15/2017 6:10:13 AM Assessment: 1. Essential hypertension Comprehensive Metabolic Panel Microalbumin/Creatinine Ratio, Urine Lipid Panel 2. Mixed hyperlipidemia Comprehensive Metabolic Panel Lipid Panel 3. Prediabetes Hemoglobin A1C 4. Need for hepatitis C screening test Hepatitis C Ab 5. Rash CBC with Differential Plans: 1. Essential hypertension Controlled Continue current medication of Lisinopril 5 mg - Comprehensive Metabolic Panel; Future - Microalbumin/Creatinine Ratio, Urine; Future - Lipid Panel; Future -. Blood pressure stable and goals discussed -. Continue current medications - Advised low salt diet - Advised regular cardiovascular exercise -. Labs reviewed and discussed with the patient - Follow up as needed if blood pressures are above goal 2. Mixed hyperlipidemia Controlled Due for fasting labs - Comprehensive Metabolic Panel; Future - Lipid Panel; Future -. Take meds as directed, Please inform us of any side effects or problems with your medic ations -. Discussed regular cardiovascular exercise and maintaining healthy wt. -. Avoid high fat/cholesterol diet -. Lipid panel and LFT's reviewed. and f/u labs ordered 3. Prediabetes Controlled Discussed rechecking with upcoming surgery plan - Hemoglobin A1C; Future - Reviewed Blood sugars today - Continue with current medications as directed -. Continue with prediabetic diet and exercise program - Check glucose fasting and 2 hrs after meals -. Return if you experience significant glucose lows or highs -. Labs and A1c reviewed 4. Need for hepatitis C screening test Discussed best practice recommendation is that patient's born between 1945 and 1965 have a hepatitis C screening. Discussed patient falls in this category and should have screening do ne at least once in lifetime. Lab ordered, will notify of results when available - Hepatitis C Ab; Future 5.Rash Discussed rash maybe related to scratching and bleeding under skin She is to watch the area and if it does not improve and let me know Ordered CBC today - CBC with Differential; Future Follow-up: Return in about 3 months (around 2017) for annual exam and recheck or soone r if needed . Care instructions and warning signs were discussed. Medications per orders. Side effects discussed. Labs and investigations per orders. Julieta Pond Trim Crew Supervisor, am acting as a scribe on behalf of, and in the presence of JUSTYN Jacome. Electronically signed by: Julieta Rogers Trim Crew Supervisor 05/10/17 9:59 I, JUSTYN Babcock, personally performed the services described in this documentat ion, as scribed in my presence and it is both accurate and complete. Electronically signed by: JUSTYN Babcock 03/06/17 14:23 documented in th is encounter Plan of [...] [place] | | | | | | [id number] | | | | | | | | +--------+---------+ + + + documented as of this encounter Results CBC with Differential (07/30/2017 11:10 AM PDT) + + + + + + | Component | Value | Ref Range | Performed | Pathologist | | | | | At | Signature | + + + + + + | WBC | 10.1 | 4.0 - 11.0 K/uL | [facility] | | | | | | [facility] | | | | | | [facility] | | | | | [facility] - | | | | | | LABORATORY | | + + + + + + | RBC | 4.95 | 3.70 - 5.20 | [facility] | | | | | M/uL | [facility] | | | | | | [facility] | | | | | | [facility] - | | | | | | LABORATORY | | + + + + + + | Hemoglobin | 15.8 | 11.5 - 16.0 | [facility] | | | | | g/dL | [facility] | | | | | | [facility] | | | | | | C[facility] - | | | | | | LABORATORY | | + + + + + + | Hematocrit | 47.9 (H) | 34.0 - 47.0 % | [facility] | | | | | | [facility] | | | | | | [facility] | | | | | | [facility] - | | | | | | LABORATORY | | + + + + + + | MCV | 96.9 | 83.0 - 101.0 fL | [facility] | | | | | | [facility] | | | | | | [facility] | | | | | | [facility] - | | | | | | LABORATORY | | + + + + + + | MCH | 32.0 | 28.0 - 35.0 pg | [facility] | | | | | | [facility] | | | | | | [facility] | | | | | | [facility] - | | | | | | LABORATORY | | + + + + + + | MCHC | 33.0 | 32.0 - 36.0 | [facility] | [...] + + + + | Platelet | 311 | 140 - 440 K/uL | [facility] | | | Count | | | [facility] | | | | | | [facility] | | | | | | [facility] - | | | | | | LABORATORY | | + + + + + + | MPV | 10.0 | fL | [facility] | | | | | | [facility] | | | | | | [facility] | | | | | | [facility] - | | | | | | LABORATORY | | + + + + + + | % | 55.6 | 45.0 - 82.0 % | [facility] | | | Neutrophils | | | [facility] | | | | | | [facility] | | | | | | C[facility] - | | | | | | LABORATORY | | + + + + + + | % | 31.0 | 20.0 - 45.0 % | [facility] | | | Lymphocytes | | | [facility] | | | | | | [facility] | | | | | | [facility] - | | | | | | LABORATORY | | + + + + + + | % Monocytes | 9.6 | 4.0 - 12.0 % | [facility] | | | | | | [facility] | | | | | | [facility] | | | | | | [facility] - | | | | | | LABORATORY | | + + + + + + | % | 2.9 | 0.0 - 5.0 % | [facility] [...] + + + + | Absolute | 5.60 | 1.80 - 8.50 | [facility] | | | Neutrophils | | K/uL | [facility] | | | | | | [facility] | | | | | | C[facility] - | | | | | | LABORATORY | | + + + + + + | Absolute | 3.10 | 0.60 - 3.20 | [facility] | | | Lymphocytes | | K/uL | [facility] | | | | | | [facility] | | | | | | CENTER - | | | | | | LABORATORY | | + + + + + + | Absolute | 1.00 | 0.00 - 1.00 | [facility] | | | Monocytes | | K/uL | [facility] | | | | | | [facility] | | | | | | CENTER - | | | | | | LABORATORY | | + + + + + + | Absolute | 0.30 | 0.00 - 0.40 | [facility] | | | Eosinophils | | K/uL | [facility] | | | | | | [facility] | | | | | | CENTER - | | | | | | LABORATORY | | + + + + + + | Absolute | 0.10 | 0.00 - 0.10 | [facility] | | | Basophils | | K/Cecil | [facility] | | | | [...] [address] | [place] | [phone] | | [facility] | | [address] | | | - LABORATORY | | | | + + + + + Hemoglobin A1C (07/30/2017 11:10 AM PDT) + +---------+ + + + | Component | Value | Ref Range | Performed | Pathologist | | | | | At | Signature | + +---------+ + + + | Hemoglobin | 6.1 (H) | 4.3 - 6.0 % | [facility] | | | A1c | | | [facility] | | | | | | [facility] | | | | | | CENTER - | | | | | | LABORATORY | | + +---------+ + + + | Estimated | 128 | mg/dL | [facility] | | | [...] + | [facility] | [address] | [place] | [phone] | | [facility] | | [address] | | | - LABORATORY | | | | + + + + + Lipid Panel (07/30/2017 11:10 AM PDT) + + + + + + | Component | Value | Ref Range | Performed | Pathologist | | | | | At | Signature | + + + + + + | Triglycerid | 93 | 35 - 160 mg/dL | [facility] | | | es | | | [facility] | | | | | | [facility] | | | | | | CENTER - | | | | | | LABORATORY | | + + + + + + | Cholesterol | 177 | 150 - 200 mg/dL | [facility] | | | | | | [facility] | | | | | | [facility] | | | | | | CENTER - | | | | | | LABORATORY | | + + + + + + | HDL | 54Comment: New HDL | 28 - 83 mg/dL [...] + + + + | Chol/HDL | 3.3 | | [facility] | | | Ratio | | | [facility] | | | | | | MEDICAL | | | | | | CENTER - | | | | | | LABORATORY | | + + + + + + | LDL, | 104 | <=130 mg/dL | [facility] | | | Calculated | | | [facility] | | [...] [address] | [place] | [phone] | | [facility] | | [address] | | | - LABORATORY | | | | + + + + + Microalbumin/Creatinine Ratio, Urine (07/30/2017 11:10 AM PDT) + + + + + + | Component | Value | Ref Range | Performed | Pathologist | | | | | At | Signature | + + + + + + | Microalbumi | 1.4Comment: Notice: New | <1.8 mg/dL | [facility] | | | n, Urine, | unit (mg/dl) and | | [facility] | | | Random | reference range as of | | MEDICAL | | | | January 02, 2014. | | CENTER - | | | | | | LABORATORY | | + + + + + + | Creatinine, | 258 | mg/dL | [facility] | | | Urine, | | | [facility] | | | Random | | | MEDICAL | | | | | | CENTER - | | | | | | LABORATORY | | + + + + + + | Microalbumi | 5 | <30 mg/g | [facility] | | | n/Creatinin | | | [facility] | | | ratio | | | [...] [address] | [place] | [phone] | | [facility] | | [address] | | | - LABORATORY | | | | + + + + + Comprehensive Metabolic Panel (07/30/2017 11:10 AM PDT) + + + + + [...] + + + + | Cl | 102 | 98 - 109 mmol/L | [facility] | | | | | | [facility] | | | | | | [facility]ICAL | | | | | | CENTER - | | | | | | LABORATORY | | + + + + + + | CO2 | 28 | 24 - 31 mmol/L | [facility] [...] + + + + | Glucose | 121 (H) | 70 - 109 mg/dL | [...] + + + + | Creatinine | 0.82 | 0.60 - 1.30 | [facility] | | | | | mg/dL | [facility] | | | | | | MEDICAL | | | | | | CENTER - | | | | | | LABORATORY | | + + + + + + | eGFR if not | >60Comment: GLOMERULAR | >=60 | [facility] | | | | FILTRATION | mL/min/1.73m2 | [facility] | | | MARSHALLESE | RATE,ESTIMATED | | MEDICAL | | | | mL/min/1.38x3Iihc than | | CENTER - | | [...] + + + + | Calcium | 9.1 | 8.3 - 10.5 | [facility] | | | | | mg/dL | [facility] | | | | | | MEDICAL | | | | | | CENTER - | | | | | | LABORATORY | | + + + + + + | Albumin | 3.9 | 3.2 - 5.0 g/dL | [facility] | | | | | | [facility] | | | | | | MEDICAL | | | | | | CENTER - | | | | | | LABORATORY | | + + + + + + | Bilirubin | 0.7 | 0.1 - 1.5 mg/dL | [facility] | | | Total | | | [facility] | | | | | | MEDICAL | | | | | | CENTER - | | | | | | LABORATORY | | + + + + + + | Total | 7.4 | 6.0 - 7.8 g/dL | [facility] | | | Protein | | | [facility] | | | | | | MEDICAL | | | | | | CENTER - | | | | | | LABORATORY | | + + + + + + | AST | 28 | 10 - 42 U/L | [facility] | | | | | | [facility] | | | | | | MEDICAL | | | | | | CENTER - | | | | | | LABORATORY | | + + + + + + | ALT | 26 | 6 - 45 U/L | [facility] | | | | | | [facility] | | | | | | MEDICAL | | | | | | CENTER - | | | | | | LABORATORY | | + + + + + + | Alkaline | 96 | 40 - 110 U/L | [facility] | | | Phosphatase | | | [facility] | | | | | | MEDICAL | | | | | | CENTER - | | | | | | LABORATORY | | + + + + + + | Globulin | 3.5 | 2.1 - 3.8 g/dL | [facility] | | | | | | [facility] | | | | | | MEDICAL | | | | | | CENTER - | | | | | | LABORATORY | | + + + + + + | Albumin/Cindy | 1.1 | 0.8 - 2.0 | [facility] | | | bulin Ratio | | | [facility] | | | | | | MEDICAL | | | | | | CENTER - | | | | | | LABORATORY | | + + + + + + | BUN/Creatin | 17.1 | | [facility] | | | ine [...] [address] | [place] | [phone] | | [facility] | | [address] | | | - LABORATORY | | | | + + + + + Hepatitis C Ab (07/30/2017 11:10 AM PDT) + + + + + + | Component | Value | Ref Range | Performed | Pathologist | | | | | At | Signature | + + + + + + | Hepatitis C | See CommentsComment: Non | NR | [facility] | | | Ab | ReactiveHepatitis C: | | [facility] | | | | Absence of antibody | | | | | | suggests no past | | | | | | Hepatitis C | | | | | | virusinfection. Since | | | | | | antibody development may | | | | | | be delayed up to 6 | | | | | | monthsafter infection, | | | | | | retesting may be | | | | | | indicated.Testing | | | | | | Performed: [facility], [address] | | | | | | [address], [place] | | | | | | [address] | | | | + + + + + + + + | Specimen | + + | Blood | + + + + + + + | Performing | Address | City/State/Zipcode | Phone Number | | Organization | | | | + + + + + | [facility] | [address] | [place] [address] | [phone] | + + + + + documented in this encounter Visit Diagnoses + + | Diagnosis | + + | Essential hypertension - Primary Unspecified essential hypertension | + + | Mixed hyperlipidemia | + + | Prediabetes Other abnormal glucose | + + | Need for hepatitis C screening test Special screening examination for other specified | | viral diseases | + + | Rash Rash and other nonspecific skin eruption | + + documented in this encounter
--- OUTSIDE RECORDS SUMMARY | ~2019-10-23 | XMS | Encounter Summary ---
Demographics + + + | Address | [address] | | | [place] [address] | + + + | Home Phone | | + + + | Preferred Language | Unknown | + + + | Marital Status | Single | + + + | Sikhism Affiliation | [id number] | + + + | Race | Unknown | + + + | Ethnic Group | Unknown | + + + Author + + + | Author | [facility] | | | and [place]ainerana | + + + | Organization | [facility] | [...] [place], [place] | | | | | [address] | | + + + + + | [address] | E[address] | [place], [place] | | | | | [address] | | + + + + + Care Team Providers + +------+ + | Care Sanitizer Name | Role | Phone | + +------+ + PCP | Unavailable | + +------+ + Encounter Details +--------+ + + + + | Date | Type | Department | Care Team | Description | +--------+ + + + + | 03/22/ | Hospital | [facility] | Unknown, | | | 1991 | Encounter | MED CTR XRAY [address] | MD Veronica | | | | | [address] | | | | | | [place] [address] | (Fax) | | | | | [phone] | | | +--------+ + + + [...] [place] | | | | | | [address] | | | | | | | | +--------+---------+ + + + documented as of this encounter Visit Diagnoses Not on filedocumented in this encounter"
--- OUTSIDE RECORDS SUMMARY | ~2019-10-23 | XMS | Encounter Summary ---
Demographics + + + | Address | [address] | | | [place] [address] | + + + | Home Phone [...] Author + + + | Author | [facility] | | | and Rainerana | + + + | Organization | [facility] [...] [place], [place] | | | | | [address] | | + + + + + | Jelena Hill | ECON | [place] | | | | | [address] | | + + + + + Care Team Providers + +------+ + | Care Assistant Portfolio Manager Name | Role | Phone | [...] + + | 11/12/ | Office | [facility] | Ivy Sun | Prediabetes (Primary | | 2019 | Visit | [facility] | [address] | Dx); Mixed | | | | [address] | [place], [place] | hyperlipidemia; | | | | [place], [place] | [address] | Essential | | | | [address] | | hypertension; | | | | [phone] | | Vitamin D | | | [...] encounter Patient Instructions Patient Instructions Dori Campbell, Lab Support Technician - 11/12/2018 9:00 AM PSTBegin checking your blood sugars and keeping a log. documented in this encounter Progress Notes Ivy Sun ARNP - 11/12/2018 9:00 AM PSTFormatting [...] Has not been taking her Vitamin D-3 27714 units weekly. Not taking OT C vitamin [...] has been changed since signin [facility] [place] Blood Glucose Calibration (OT ULTRA/FASTTK CNTRL SOLN) SOLN (Taking) Use to calibrate glu cometer Number of times this order has been changed since signin [facility] [place] Blood Glucose Monitoring Suppl (ONE TOUCH ULTRA SYSTEM KIT) w/Device KIT (Taking) Use to check blood sugars 3 times weekly. Number of times this order has been changed since signin [facility] [place] ferrous sulfate 325 mg tablet (Taking) Take 1 tablet by mouth 2 times daily. Number of times this order has been changed since signin [facility] [place] gabapentin (NEURONTIN) 600 MG tablet (Taking) Take 1 tablet by mouth nightly. Number of times this order has been changed since signin [facility] [place] glucose blood test strips (ONE TOUCH ULTRA TEST) strip (Taking) Test fasting 3 times w jt, and check 30 min pre and 2 hours post main meal Number of times this order has been changed since signin [facility] [place] HYDROcodone-acetaminophen (NORCO) 5-325 mg per tablet (Taking/Discontinued) Take 1 tablet by mouth every 6 hours as needed for Pain. Number of times this order has been changed since signin [facility] [place] ibuprofen (ADVIL, MOTRIN) 400 mg tablet (Taking/Discontinued) Take 1 tablet by mouth ever y 6 hours as needed for Pain. Number of times this order has been changed since signin [facility] [place] lisinopril (PRINIVIL, ZESTRIL) 5 mg tablet (Taking) Take 1 tablet by mouth Daily. Number of times this order has been changed since signin [facility] [place] metFORMIN (GLUCOPHAGE) 500 mg tablet (Taking) TAKE ONE TABLET BY MOUTH DAILY WITH BREAKFA ST Number of times this order has been changed since signin [facility] [place] nortriptyline (PAMELOR) 10 MG capsule (Taking) TAKE THREE CAPSULES BY MOUTH NIGHTLY Number of times this order has been changed since signin [facility] [place] ONE TOUCH ULTRASOFT LANCETS MISC (Taking) Use to check blood sugars 3 times a week Number of times this order has been changed since signin [facility] [place] oxybutynin (DITROPAN-XL) 10 MG 24 hr tablet (Taking) Take 1 tablet by mouth Daily. Number of times this order has been changed since signin [facility] [place] PARoxetine (PAXIL) 40 MG tablet (Taking) TAKE ONE TABLET BY MOUTH DAILY Number of times this order has been changed since signin [facility] [place] rOPINIRole (REQUIP) 2 MG tablet (Taking) TAKE ONE TABLET BY MOUTH NIGHTLY Number of times this order has been changed since signin [facility] [place] simvastatin (ZOCOR) 10 mg tablet (Taking) TAKE ONE TABLET BY MOUTH ONCE NIGHTLY Number of times this order has been changed since signin [facility] [place] UNABLE TO FIND (Taking) Med Name: Resmed AirSense 10 autoset CPAP: 13-20cm while sleeping . UNCODED MEDICATION (Taking) Diagnosis: Obstructive Sleep Apnea ICD-9: 327.23 Length of Need: 99 Months Number of times this order has been changed since signin [facility] [place] UNCODED MEDICATION (Taking) Wear at all times while sleeping. 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 | [address] | [place] | [phone] | | [facility] | | [address] | | | - LABORATORY | | [...] | | 25 Hydroxy | | | [facility] | | | | | | MEDICAL [...] ST. | [address] | [place], [place] | [phone] | | [facility] | | [address] | | | - LABORATORY | | [...]
--- OUTSIDE RECORDS SUMMARY | ~2019-10-23 | XMS | Encounter Summary ---
Demographics + + + | Address | [address] | | | [place] [address] | + + + | Home Phone [...] | Author | [facility] | | | and Rainerana | + + + | Organization | [facility] | | [...] [place], [place] | | | | | [address] | | + + + + + | Jelena Hill | ECON | [place] | | | | | [address] | | + + + + + Care Team Providers + +------+ + | Care Chief Pharmacist Name | Role | Phone | + +------+ + | Ivy Sun | PCP | | + +------+ + Reason for Visit + + + | Reason | Comments | + + + | Follow-up | one year follow-up pre syncope | + + + Encounter Details +--------+---------+ + + + | Date | Type | Department | Care Team | Description | +--------+---------+ + + + | 01/14/ | Office | [facility] | Logan Wolf | Pre-syncope (Primary | | 2013 | Visit | CARDIOLOGY [address] | MD Missael [address] | Dx) | | | | [place], | [address] [place] | | | | | [place] [address] | [place] [address] | | | | | [phone] | [phone] | | | | | | | [...] + + + | Blood Pressure | 92/70 | 01/14/2014 2:57 PM | | | | | PDT | | + + + + + | Pulse | 96 | 01/14/2014 2:57 PM | | | | | PDT | | + + + + + | Temperature | - | - | | + + + + + | Respiratory Rate | 16 | 01/14/2014 2:57 PM | | | | | PDT | | + + + + + | Oxygen Saturation | - | - | | + + + + + | Inhaled Oxygen | - | - | | | Concentration | | | | + + + + + | Weight | 113.9 kg (251 lb) | 01/14/2014 2:57 PM | | | | | PDT | | + + + + + | Height | 170.2 cm (5' 7") | 01/14/2014 2:57 PM | | | | | PDT | | + + + + + | Body Mass Index | 39.31 | 01/14/2014 2:57 PM | | | | | PDT | | + + + + + documented in this encounter Progress Notes Logan Wolf MD - 01/14/2014 4:19 PM PDTPCP: Ivy Sun [facility] Chief Complaint: Presyncope, Abnormal EKG HISTORY OF PRESENT ILLNESS: Patient is a 63-year-old female with history of 2 episodes of n ear syncope 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 Since [...] sleep hygiene, especially in context of her restaurant shift supervisor work that she has done for over [...] KERATOSIS (ICD-702.19) PERS HX TOBACCO USE PRESENTING HAZARDS HEALTH (ICD-V15.82) Current Meds Prior To This [...] list was verified with patient or authorized customer assistance representative. Past, Family, and Social History Past History (reviewed - no changes required): [facility] no rheumatic fever, TB, or Polio [id number] COLONIC POLYPS, ADENOMATOUS, HX OF (ICD-V12.72) - [...] Pancreatitis Father: 83, Triple Cardiac Bypass, 3-4 CT's, Pacemaker, Bilat CEA, HTN, diabetes, snore Pgf: 82, Stroke Pgm: 72, Heart Dz Siblings: Brother alive, Sister alive Social History (reviewed - no changes required): Born in [place] Education: two degrees in medical records and nursing. Single:Lives with Aleks MARKS in [facility] at the correctional facility for [...] reactions. 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 Auscultation: normal S1 S2; no gallop or rub or click Murmur: none Carotid arteries: pulses 2+, symmetric, no bruits Abdominal aorta: unable to palpate aorta; no bruits Peripheral circulation: no cyanosis, clubbing, edema, or varicosities Gastrointestinal Abdomen: obese Mental Status/Neurological Orientation: oriented to time, place, and person Affect/Mood: no depression, anxiety, or agitation Respiratory Respiratory effort: no intercostal retractions or use of accessory muscles Auscultation: no rales, rhonchi, or wheezes Eyes Conjunctiva & lids: conjunctiva and lids normal Ears, Nose and Throat Lips: no pallor or cyanosis Neck Jugular veins: no significant JVD; no a, v or donaldson waves Musculoskeletal Gait and station: normal without ataxia Extremities Digits and nails: no clubbing, cyanosis, or petechiae Skin Inspection: no visible rashes, lesions, or ulcerations Test and Lab Results The EKG done [...] by me shows sinus tachycardia, heart rate 115, RBBB. Echocardiogram November 2013 and temperature is 90 shows sinus rhythm, heart rate near 100, LVEF 69%, mild left atrial enlargement, mild aortic, mitral, tricuspid insufficiency, grade 1 LV diastolic dysfunction, mild aortic root enlargement. HbA1c 6.2 ASSESSMENT AND PLAN 1. NEAR SYNCOPE. Patient's extensive cardiovascular workup thus far is only notable for right bundle branch block on ECG on 2 different occasions without any significant interval change as well as mild aortic root enlargement on her echocardiogram. She also has exhibited borderline tachycardia chronicall y even preceding therapy with Requip. Otherwise, no [...] periodic reassessment. 3. TOBACCO CESSATION. I have coagulated the patient on stopping smoking. I appreciate the opportunity to help in the management of this patient. I will continue to see her on an annual basis or sooner if clinically indicated. CC: Ivy Sun, PERSONNEL CLERKS SUPERVISOR-BC HPI Review of Systems Physical Exam documented in t his encounter Plan of [...] 12 lead | ECG | Routin | Pre-syncope | Ordered: 01/14/2014 | | | | e | | | + +------+--------+ + + documented as of this encounter Procedures + +--------+ + + + | Procedure Name | Priori | Date/Time | Associated Diagnosis | Comments | | | ty | | | | + +--------+ + + + | ECG - EXTERNAL SCAN | | 01/14/2014 | | Results for this | | | | 12:00 AM | | procedure are in the | | | | PDT | | results section. | + +--------+ + + + documented in this encounter Results ECG - EXTERNAL SCAN (01/14/2014 12:00 AM PDT) + + + | Narrative | Performed At | + + + | Ordered by an | | | unspecified provider. | | + + + + + | Transcriptions | + + | Dajuanjuanito Osiristommie - 01/14/2014 12:00 AM PDT | + + documented in this encounter Visit Diagnoses + + | Diagnosis | + + | Pre-syncope - Primary Syncope and collapse | + + documented in this encounter
--- OUTSIDE RECORDS SUMMARY | ~2019-10-23 | XMS | Encounter Summary ---
Demographics + + + | Address | [address] | | | [place] [address] | + + + | Home Phone [...] Author | [facility] | | | and Rainerana | + + + | Organization | [facility] | | | and [...] [place], [place] | | | | | [address] | | + + + + + | Jelena Hill | ECON | [place] | | | | | [address] | | + + + + + Care Team Providers + +------+ + | Care Orthotic Technician Name | Role | Phone | [...] [address] | [place] | | | | | [place] | [address] | | | | | [address] | | | | | | [phone] | | | +--------+ + + + [...] [place] | | | | | | [address] | | | | | | | | +--------+---------+ + + + documented as of this encounter Visit Diagnoses Not on filedocumented in this encounter"
--- OUTSIDE RECORDS SUMMARY | ~2019-10-23 | XMS | Encounter Summary ---
Demographics + + + | Address | [address] | | | [place] [address] | + + + | Home Phone [...] | Author | [facility] | | | and Rainerana | + + + | Organization | [facility] | | | and Rainerana | [...] [place], [place] | | | | | [address] | | + + + + + | Jelena Hill | ECON | [place], [place] | | | | | [address] | | + + + + + Care Team Providers + +------+ + | Care Bulk Tank Driver Name | Role | Phone | [...] [place] | | | | | | [address] | | | | | | [phone] | | | +--------+ + + + [...] [place] | | | | | | [address] | | | | | | | | +--------+---------+ + + + documented as of this encounter Visit Diagnoses Not on filedocumented in this encounter"
--- OUTSIDE RECORDS SUMMARY | ~2019-10-23 | XMS | Encounter Summary ---
Demographics + + + | Address | [address] | | | [place] [address] | + + + | Home Phone [...] | Author | [facility] | | | and Rainerana | + + + | Organization | [facility] | | [...] [place], [place] | | | | | [address] | | + + + + + | Jelena Hill | ECON | [place] | | | | | [address] | | + + + + + Care Team Providers + +------+ + | Care Pararescue Craftsman Name | Role | Phone | + +------+ + | Ivy Sun | PCP | | + +------+ + Encounter Details +--------+ + + + + | Date | Type | Department | Care Team | Description | +--------+ + + + + | 12/14/ | Abstract | [facility] | Logan Wolf | H/O diagnostic tests | | 2013 | | [address] | MD Miss[address] | (Primary Dx) | | | | [place], | [address] [place] | | | | | [place] [address] | [place] [address] | | | | | [phone] | [phone] | | | | | | | [...] [place] | | | | | | [address] | | | | | | | | +--------+---------+ + + + documented as of this encounter Visit Diagnoses + + | Diagnosis | + + | H/O diagnostic tests - Primary Other specified personal history presenting hazards to | | health | + + documented in this encounter"
--- OUTSIDE RECORDS SUMMARY | ~2019-10-23 | XMS | Encounter Summary ---
Demographics + + + | Address | [address] | | | [place] [address] | + + + | Home Phone [...] + | Author | [facility] | | | and Rainerana | + + + | Organization | [facility] | | | and Rainerana | [...] [place], [place] | | | | | [address] | | + + + + + | Jelena Hill | ECON | [place] | | | | | [address] | | + + + + + Care Team Providers + +------+ + | Care Internet Developer Name | Role | Phone | + +------+ + | Ivy Sun | PCP | | + +------+ + Reason for Visit + + + | Reason | Comments | + + + | Hypertension | 6 month follow-up | + + + | Hyperlipidemia | 6 month follow-up | + + + Encounter Details +--------+---------+ + + + | Date | Type | Department | Care Team | Description | +--------+---------+ + + + | 10/14/ | Office | [facility] | Ivy Sun | INSOMNIA UNSPECIFIED | | 2012 | Visit | [facility] | JUSTYN Keating [address] | (Primary Dx); | | | | [address] | [place] | Rosacea; Seborrheic | | | | [place] | [address] | dermatitis; Restless | | | | [phone] | | legs; HYPERTENSION, | | | | [phone] | | CONTROLLED; | | | | | | Osteopenia; | | | | | | Hyperlipidemia; | | | | | | Impaired fasting | | | | | | glucose; Unspecified | | | | | | vitamin D | | | | | | deficiency; Need for | | | | | [...] + + + | Blood Pressure | 104/70 | 10/14/2013 7:47 AM | | | | | PST | | + + + + + | Pulse | 100 | 10/14/2013 7:47 AM | | | | | PST | | + + + + + | Temperature | 36.9 C (98.4 F) | 10/14/2013 7:47 AM | | | | | PST | | + + + + + | Respiratory Rate | 16 | 10/14/2013 7:47 AM | | | | | PST | | + + + + + | Oxygen Saturation | 97% | 10/14/2013 7:47 AM | | | | | PST | | + + + + + | Inhaled Oxygen | - | - | | | Concentration | | | | + + + + + | Weight | 117 kg (258 lb) | 10/14/2013 7:47 AM | | | | | PST | | + + + + + | Height | 170.2 cm (5' 7") | 10/14/2013 7:47 AM | | | | | PST | | + + + + + | Body Mass Index | 40.41 | 10/14/2013 7:47 AM | | | | | PST | | + + + + + documented in this encounter Progress Notes Ivy Sun ARNP - 10/14/2013 8:05 AM PSTFormatting of this note might be differen t from the original. Subjective: Lucie Miller is a 63 y.o. female patient of Ivy Sun [facility]. Chief Complaint: Hypertension and Hyperlipidemia Here for her 6 month follow-up of her chronic health problems. Hypertension: Control and Compliance Low Sodium Diet: yes Medication compliance: good Home Blood Pressures: Not checking BP: 104/70 mmHg Pt denies: No headache, visual symptoms, neurologic problems, syncope No chest pain, palpitations, ROSAS, orthopnea, PND, peripheral edema No side effects from any antihypertensive medications HYPERLIPIDEMIA: Diet: Low fat, low carb dietary compliance: Denies side effects of medications No evidence of medication toxicity Denies Myalgias, abdominal pain, jaundice, constipation. Chronic insomnia Not fasting today, but needs LFT done Has mammogram scheduled. Needs flu vaccine. Was started on Requip for her restless leg syndrome by her orthopedic surgeon. This was a month ago and has been working very well. She would like a refill of this. She's a refill of her Fosamax for her osteopenia. She's a history of Rosacea and recurrent itchy, flaky rash over her forehead and eyebrows /eyelids area she was given a prescription for clobetasol cream and uses that daily for this and her rosacea. Has been out of this for 2 months. Would like refill of this. She's having a lot of difficulties with insomnia. 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 She's having a lot of difficulty switching her sleep habits are round to sleeping in the nighttime and being awake during the day. She will often be up al l night long her sleep very poorly and she will go to bed at 9 AM and wake up at 1 PM. She has used Ambien occasionally for sleep issues when she was working nights. She's not using this every night. She would like to know what she can do to get her sleep habits turned artie k around. She denies excessive use of caffeine. Has hx of impaired fasting glucose and due for A1 C Recheck. Has lost [address] year. Hx of vitamin D deficiency and will recheck level. No Known Allergies Medications: She has a current medication list which includes the following prescription(s): alendronate , aspirin adult low strength, cholecalciferol, cloderm, lisinopril, paroxetine, ropinirole, simvastatin, UNCODED MEDICATION, UNCODED MEDICATION, and zolpidem. Past Medical History She has a past [...] disorder (2003); Eczema; Hearing loss; Sleep apnea; and Smoker. Past Surgical History She has past surgical [...] items are noted in HPI. Objective: BP 104/70 | Pulse 100 | Temp 36.9 C (98.4 F) (Temporal) | Resp 16 | Ht 1.702 m (5' 7") | Wt 117.028 kg (258 lb) | BMI 40.41 kg/m2 | SpO2 97% | ? No General Appearance: Alert, cooperative, no distress, appears stated age Head: Normocephalic, without obvious abnormality, atraumatic Eyes: PERRL, conjunctiva/corneas clear Ears: Normal TM's and external ear canals, wears hearing aids Nose: Nares normal Throat: Lips, mucosa, and tongue normal; Posterior pharynx normal normal Neck: Supple, symmetrical, no adenopathy, thyroid: not enlarged, symmetric, no tenderness/m ass/nodules, no carotid bruit or JVD Lungs: Clear to auscultation bilaterally, respirations unlabored Abdomen: Soft, non-tender, normal bowel sounds, no masses, no organomegaly Extremities: Extremities normal, atraumatic, no cyanosis or edema Skin: Skin color, texture, turgor normal, Mild telangiectasias noted on her cheeks consist ent with mild rosacea. Small amount of flaking noted between her eyebrows. Neurologic: Nonfocal. Alert and oriented x3.l Results for orders placed during the hospital encounter of 05/12/13 COMPREHENSIVE METABOLIC PANEL Component Value Range GLUCOSE 111 (*) 70 - 109 mg/dL CALCIUM 9.0 8.3 - 10.5 mg/dL ALK PHOS 91 40 - 110 IU/L AST 30 10 - 42 IU/L ALT 25 6 - 45 IU/L BILIRUBIN TOTAL 0.7 0.2 - 1.0 mg/dL Total protein 6.6 6.0 - 7.8 gm/dL ALBUMIN 3.3 3.2 - 5.0 gm/dL BUN 10 7 - 18 mg/dL CREA 0.85 0.60 - 1.30 mg/dL Estimated GFR >60 >60 mL/min/A BUN/Creatinine Ratio 11.8 (*) 12 - 20 NA 141 136 - 149 mEq/L K 4.0 3.5 - 5.1 mEq/l CL 107 98 - 109 mEq/l CO2 28 24 - 31 mEq/L ANION GAP 10.0 6.0 - 17.0 LIPID PROFILE Component Value Range TRIGLYCERIDES 62 35 - 160 mg/dL CHOLESTEROL 154 150 - 200 mg/dL HDL 59 29 - 89 mg/dL LDL CALC 83 <130 mg/dL Chol/HDL Ratio 2.6 HEMOGLOBIN A1C Component Value Range Hemoglobin A1c 5.7 4.3 - 5.8 % MAGNESIUM Component Value Range MG 2.2 1.8 - 2.5 mg/dL URINALYSIS WITH MICROSCOPIC IF INDICATED Component Value Range COLLECTION METHOD 1 . COLOR YELLOW CLARITY HAZY GLUCOSE UA NEGATIVE NEGATIVE mg/dL BILIRUBIN UA NEGATIVE NEGATIVE KETONES UA NEGATIVE NEGATIVE Specific [place] >=1.030 1.001 - 1.030 BLOOD UA MODERATE NEGATIVE PH UA 5.5 5.0 - 8.0 PROTEIN UA NEGATIVE NEGATIVE mg/dL UROBILINOGEN UA NORMAL NORMAL EU/dL NITRITE UA NEGATIVE NEGATIVE LEUKOCYTES ESTERASE UA NEGATIVE NEGATIVE UA, MICROSCOPIC, REFLEX Component Value Range WBC UA 0-5 0 - 5 /hpf RBC UA 0-3 0 - 3 /hpf SQUAMOUS EPITHELIAL UA MANY (*) FEW /hpf BACTERIA UA FEW NONE /hpf Culture Indicated NO Assessment and Plans: Lucie was seen today for hypertension and hyperlipidemia. Diagnoses and associated orders for this visit: Insomnia unspecified We discussed her insomnia linked. Sleep hygiene was discussed and encouraged. Explained h er that she cannot nap during the day if she can be sleeping on it. Talked with her about u sing nortriptyline at bedtime to help with her chronic insomnia. She would like to try this . We talked about minimal use of Ambien as it can be habit-forming. Also discussed Ambien and the concern about impairment of activities especially in females and one older than 65. She will keep its use to a minimum. She'll call me in a minimum of how the nortriptyline i s doing for her. I discussed potential side effects as the benefits of the medication with her. She does use her CPAP for her sleep apnea - - nortriptyline (PAMELOR) 10 MG capsule; 10 mg po at bedtime week 1. May increase by 10 mg every week until 30 mg at bedtime. Rosacea Explain to her that MetroCream is best used for rosacea. Med profile was discussed and a p rescription was provided. - metroNIDAOLE (METROCREAM) 0.75 % cream; Apply topically 2 times daily. Seborrheic dermatitis She is to use this sparingly as needed and not to use longer than 10 days about taking a br eak. Steroid cream cream counseling was discussed. - triamcinolone (KENALOG) 0.025% cream; Apply thin film to affected area(s) two daily as ne eded Restless legs Requip refilled - rOPINIRole (REQUIP) 0.5 MG tablet; Take 1 tablet by mouth nightly. Hypertension, controlled -. Blood pressure stable and goals discussed -. Continue current medications - Advised low salt diet - Advised regular cardiovascular exercise -. Labs ordered - Follow up as needed if blood pressures are above goal - Comprehensive Metabolic Panel; Future - Urinalysis with Microscopic if Indicated; Future - Microalbumin/Creatinine Ratio, Urine; Future Osteopenia - alendronate (FOSAMAX) 70 mg tablet; Take 1 tablet by mouth Once a week. Hyperlipidemia - simvastatin (ZOCOR) 10 mg tablet; Take 1 tablet by mouth nightly. - Comprehensive Metabolic Panel; Future Impaired fasting glucose Encouraged to continue with weight loss efforts and exercise. Will check A1C - Hemoglobin A1C; Future Unspecified vitamin d deficiency - Vitamin D, 25-Hydroxy; Future Need for influenza vaccination Immunization counseling discussed by myself and updated today - Flu vaccine greater than or equal to 3yo preservative free IM Other Orders - Discontinue: rOPINIRole (REQUIP) 0.25 mg tablet; Take 0.5 mg by mouth nightly. Care instructions and warning signs were discussed. Medications per orders. Side effects discussed. Labs and investigations per orders. Recheck 6 mnnths. Sooner prn. This note was dictated using [employer] voice recognition software. Every attempt was made [...] [place] | | | | | | [address] | | | | | | | | +--------+---------+ + + + documented as of this encounter Results Microalbumin/Creatinine Ratio, Urine (10/14/2013 9:35 AM PST) [...] + | [facility] | [address] | [place] | [phone] | | [facility] | | [address] | | | - LABORATORY | | | | + + + + + | [facility] | [address] | [place], [place] | | | [facility] | | [address] | | | - LABORATORY | | [...] | METHOD [facility] | | | [facility] | | [...] - 1.030 | [facility] | | | [place] | | | [facility] | | [...] + | [facility] | [address] | [place] | [phone] | | [facility] | | [address] | | | - LABORATORY | | | | + + + + + | [facility] | [address] | [place] | | | [facility] | | [address] | | | - LABORATORY | | [...] Hydroxy | Suggests deficiency of | | [facility] | | | | 25-OH Vitamin D.20-29 [...] + | [facility] | [address] | [place] | [phone] | | [facility] | | [address] | | | - LABORATORY | | | | + + + + + | [facility] | [address] | [place] | | | [facility] | | [address] | | | - LABORATORY | | [...] + | [facility] | [address] | [place] | [phone] | | [facility] | | [address] | | | - LABORATORY | | | | + + + + + | [facility] | [address] | [place], [place] | | | [facility] | | [address] | | | - LABORATORY | | [...] 3.6 | 3.2 - 5.0 gm/dL | [facility] | | | | | | [facility] | | | | [facility] | [facility] | | | | | | [facility] - | | | | | | LABORATORY | | + + + + + + | BUN | 14 | 7 - 18 mg/dL | [facility] | | | | | | [facility] | | | | | | MEDICAL | | | | | | CENTER - | | | | | | LABORATORY | | + + + + + + | Creatinine | 0.83 | 0.60 - 1.30 | [facility] | | | | | mg/dL | [facility] | | | | | | MEDICAL | | | | | | CENTER - | | | | | | LABORATORY | | + + + + + + | Estimated | >60Comment: For | >60 mL/min/A | [facility] | | | GFR | -Americans, | [...] + | [facility] | [address] | [place], [place] | [phone] | | [facility] | | [address] | | | - LABORATORY | | | | + + + + + | [facility] | [address] | [place], [place] | | | [facility] | | [address] | | | - LABORATORY | | | | + + + + + documented in this encounter Visit Diagnoses + + | Diagnosis | + + | INSOMNIA UNSPECIFIED - Primary Insomnia, unspecified | + + | Rosacea | + + | Seborrheic dermatitis Seborrheic dermatitis, unspecified | + + | Restless legs Restless legs syndrome (RLS) | + + | HYPERTENSION, CONTROLLED Essential hypertension, benign | + + | Osteopenia Disorder of bone and cartilage, unspecified | + + | Hyperlipidemia Other and unspecified hyperlipidemia | + + | Impaired fasting glucose | + + | Unspecified vitamin D deficiency | + + | Need for influenza vaccination Need for prophylactic vaccination and inoculation | | against influenza | + + documented in this encounter
--- OUTSIDE RECORDS SUMMARY | ~2019-10-23 | XMS | Encounter Summary ---
Demographics + + + | Address | [address] | | | [place] [address] | + + + | Home Phone [...] + | Author | [facility] | | | and Rainerana | + + + | Organization | [facility] | [...] [place], [place] | | | | | [address] | | + + + + + | Jelena Hill | ECON | [place] | | | | | [address] | | + + + + + Care Team Providers + +------+ + | Care Asbestos Removal Worker Name | Role | Phone | [...] + | 08/22/ | Telephone | [facility] [place] [facility] | Ivy Sun | Results (urine) | | 2014 | | [facility] | [address] | | | | | [address] | [place] [place] | | | | | [place] | [address] | | | | | [address] | | | | | | [phone] | | | +--------+ + + + [...] [place] | | | | | | [address] | | | | | | | | +--------+---------+ + + + documented as of this encounter Visit Diagnoses + + | Diagnosis | + + | UTI (lower urinary tract infection) - Primary Urinary tract infection, site not | | specified | + + | Proteinuria | + + documented in this encounter"
--- OUTSIDE RECORDS SUMMARY | ~2019-10-23 | XMS | Encounter Summary ---
Demographics + + + | Address | [address] | | | [place] [address] | + + + | Home Phone | | + + + | Preferred Language | Unknown | + + + | Marital Status | Single | + + + | Yarsani Affiliation | 1077 | + + + | Race | Unknown | + + + | Ethnic Group | Unknown | + + + Author + + + | Author | [facility] | | | and Rainerana | + + + | Organization | [facility] | | [...] [place], [place] | | | | | [address] | | + + + + + | Jelena Hill | ECON | [place] | | | | | [address] | | + + + + + Care Team Providers + +------+ + | Care Milling Supervisor Name | Role | Phone | + +------+ + | Ivy Sun | PCP | | + +------+ + Encounter Details +--------+ + + + + | Date | Type | Department | Care Team | Description | +--------+ + + + + | 05/12/ | Hospital | [facility] | Ivy Sun | Osteopenia; Hx of | | 2013 | Encounter | MED CTR XRAY [address] | L, MIXOLOGIST [address] | compression fracture | | | | [place] | [place] [place], [place] | of spine | | | | [place] [address] | [address] | | | | | [phone] | | | +--------+ + + + [...] [place] | | | | | | [address] | | | | | | | | +--------+---------+ + + + documented as of this encounter Procedures + +--------+ + + + | Procedure Name | Priori | Date/Time | Associated Diagnosis | Comments | | | ty | | | | + +--------+ + + + | DEXA BONE DENSITY | Routin | 05/12/2013 | Osteopenia Hx of | Results for this | | STUDY WO MARK FX | e | 2:25 PM | compression fracture | procedure are in the | | ASSESSMENT | | PDT | of spine | results section. | + +--------+ + + + documented in this encounter Results DEXA Bone Density Study (05/12/2013 2:25 PM PDT) + + | Specimen | + + | | + + + + + | Narrative | Performed At | + + + | [facility] | [place] | | Department [address] [facility] [place] | [facility] | | [ rep [address]] [ rep [facility] | | st zip] Signed | - IMAGING | | | | | Patient Name: LUCIE CARRERA Physician: | | | [id number].[id number] : 1950 Age: 62 Sex: F Unit #: [id number] | | | Exam Date: 05/12/13 [place] [facility] [place] | | Report #: [id number] Page: | | | %(RAD)RES..mtdd.print.filter("pg") of %(RAD) | | | RES..mtdd.print.filter("tpg") | | | | | | Accession Number: [id number] | | | DEXA CLINICAL HISTORY: OSTEOPENIA. RECENT | | | COMPRESSION FRACTURE. COMPARISON: None. | | | FINDINGS: LUMBAR SPINE: L1 and L2 are utilized. L3 and L4 | | | are excluded due to osteoarthritic change which will falsely elevate | | | bone mineral density. Bone mineral density is 0.859 | | | g/cm2. T score -1.1. Z score 0.3. LEFT HIP: | | | Total bone mineral density 0.76 g/cm2. T score -1.5. Z score | | | -0.5. IMPRESSION: 1. WHO CLASSIFICATION: | | | OSTEOPENIA IN THE LUMBAR SPINE AND LEFT HIP. INCREASED RISK FOR | | | FRACTURE. Dictated Date/Time: 05/12/2013 14:25 | | | Transcribed Date/Time: 05/12/2013 16:28 Speech And Drama Teacher: | | | <<Signature on File>> | | | Forest | | | Nathaly Manley MD05/12/13 2205 <Electronically signed by Forest Andersen | | | Vineet JEFFRIES> Forest [place] MD 05/12/13 1424 | | | Speech And Drama Teacher: Bruxie Gfyiatsphsmxu41/16/13 1628 | | | PARESH Butt | | + + + + + + + + | Performing | Address | City/State/Zipcode | Phone Number | | Organization | | | | + + + + + | [facility] | [address] | [place] | [phone] | | [facility] | | [address] | | | - IMAGING | | | | + + + + + documented in this encounter Visit Diagnoses + + | Diagnosis | + + | Osteopenia Disorder of bone and cartilage, unspecified | + + | Hx of compression fracture of spine Personal history of traumatic fracture | + + documented in this encounter
--- OUTSIDE RECORDS SUMMARY | ~2019-10-23 | XMS | Encounter Summary ---
Demographics + + + | Address | [address] | | | [place] [address] | + + + | Home Phone [...] + | Author | [facility] | | | and Rainerana | + + + | Organization | [facility] | | [...] [place], [place] | | | | | [address] | | + + + + + | Jelena Hill | ECON | [place] | | | | | [address] | | + + + + + Care Team Providers + +------+ + | Care Manager Inventory Management Name | Role | Phone | + +------+ + | Ivy Sun | PCP | | + +------+ + Encounter Details +--------+ + + + + | Date | Type | Department | Care Team | Description | +--------+ + + + + | 11/12/ | Abstract | [facility] | Ivy Sun | | | 2019 | | [facility] | L, TUNA PURSE SEINER [address] | | | | | [address] | [address] [place] | | | | | [place] | [address] | | | | | [address] | | | | | | [phone] | | | +--------+ + + + [...] [place] | | | | | | [address] | | | | | | | | +--------+---------+ + + + documented as of this encounter Procedures + +--------+ + + + | Procedure Name | Priori | Date/Time | Associated Diagnosis | Comments | | | ty | | | | + +--------+ + + + | EXTERNAL LAB: [facility] | Routin | 09/30/2018 | | Results for this | | | e | | | procedure are in the | | | | | | results section. | + +--------+ + + + documented in this encounter Results External Lab: [facility] (09/30/2018) + +-------+ + + + | Component | Value | Ref Range | Performed | Pathologist | | | | | At | Signature | + +-------+ + + + | BUN, | 19 | 6 - 23 | [facility]FER[facility] | | | External | | | LAB | | | | | | [facility] | | + +-------+ + + + + + + + + | Performing | Address | City/State/Zipcode | Phone Number | | Organization | | | | + + + + + | REFERENCE LAB | [address] | [place] [address] | [phone] | | [facility] | | | | + + + + + | REFERENCE LAB | [address] [facility] | [place] [address] | [phone] | | [facility] | | | | + + + + + documented in this encounter Visit Diagnoses Not on filedocumented in this encounter"
--- OUTSIDE RECORDS SUMMARY | ~2019-10-23 | XMS | Encounter Summary ---
Demographics + + + | Address | [address] | | | [place] [address] | + + + | Home Phone | | + + + | Preferred Language | Unknown | + + + | Marital Status | Single | + + + | Jew Affiliation | 1077 | + + + | Race | Unknown | + + + | Ethnic Group | Unknown | + + + Author + + + | Author | [facility] | | | and Rainerana | + + + | Organization | [facility] | | [...] [place], [place] | | | | | [address] | | + + + + + | Jelena Hill | ECON | [place] | | | | | [address] | | + + + + + Care Team Providers + +------+ + | Care Sugar Boiler Name | Role | Phone | + +------+ + | Ivy Sun | PCP | | + +------+ + Encounter Details +--------+ + + + + | Date | Type | Department | Care Team | Description | +--------+ + + + + | 09/09/ | Orders Only | [facility] | Logan Wolf | Aortic root | | 2011 | | [address]QU[address] | MD Missael [address] | enlargement (HCC) | | | | [place], | [place] [address] [place] | (Primary Dx) | | | | [place] [address] | [place] [address] | | | | | [phone] | [phone] | | | | | | | [...] [place] | | | | | | [address] | | | | | | | | +--------+---------+ + + + + +------+--------+ + + | Name | Type | Priori | Associated Diagnoses | Order Schedule | | | | ty | | | + +------+--------+ + + | ECG 12 LEAD | ECG | Routin | Aortic root | Ordered: 09/09/2012 | | | | e | enlargement (HCC) | | + +------+--------+ + + documented as of this encounter Visit Diagnoses + + | Diagnosis | + + | Aortic root enlargement (HCC) - Primary Aortic ectasia, unspecified site | + + documented in this encounter"
--- OUTSIDE RECORDS SUMMARY | ~2019-10-23 | XMS | Encounter Summary ---
Demographics + + + | Address | [address] | | | [place] [address] | + + + | Home Phone | | + + + | Preferred Language | Unknown | + + + | Marital Status | Single | + + + | Quaker Affiliation | [id number] | + + + | Race | Unknown | + + + | Ethnic Group | Unknown | + + + Author + + + | Author | [facility] | | | and Rainerana | + + + | Organization | [facility] | | | and [...] [place], [place] | | | | | [address] | | + + + + + | Jelena Hill | ECON | [place] | | | | | [address] | | + + + + + Care Team Providers + +------+ + | Care Gusset Maker Name | Role | Phone | + +------+ + | Ivy Sun | PCP | | + +------+ + Encounter Details +--------+ + + + + | Date | Type | Department | Care Team | Description | +--------+ + + + + | 05/28/ | Hospital | [facility] | Ivy Sun | | | 2011 | Encounter | [facility] | L, RAILROAD BRAKE OPERATOR [address] | | | | | [address] [place] | [address] [place], [place] | | | | | [place], [place] | [address] | | | | | [address] | | | | | | [phone] | | | +--------+ + + + [...] | | 11 | 2 | | [id number] UNITS capsule | mouth once weekly | [...] [place] | | | | | | [address] | | | | | | | [...] + | [facility] | [address] | [place], [place] | [phone] | | [facility] | | [address] | | | - LABORATORY | | | | + + + + + | [facility] [facility] | [address] | [place], [place] | | | [facility] | | [address] | | | - LABORATORY | | [...] + | [facility] | [address] | [place] | [phone] | | [facility] | | [address] | | | - LABORATORY | | | | + + + + + | [facility] | [address] | [place], [place] | | | [facility] | | [address] | | | - LABORATORY | | [...] performed on the Lexx | uIU/mL | [facility] | | | | [facility] | | MEDICAL | | | [...] + | [facility] | [address] | [place], [place] | [phone] | | [facility] | | [address] | | | - LABORATORY | | | | + + + + + | [facility] | [address] | [place] | | | [facility] | | [address] | | | - LABORATORY | | [...] + | [facility] | [address] | [place] | [phone] | | [facility] | | [address] | | | - LABORATORY | | | | + + + + + | [facility] | [address] | [place] | | | [facility] | | [address] | | | - LABORATORY | | [...] [address] | [place] | [phone] | | [facility] | | [address] | | | - LABORATORY | | | | + + + + + | [facility] [facility] | [address] | [place] | | | [facility] | | [address] | | | - LABORATORY | | [...] | 0.76 | 0.60 - 1.30 | [facility] | | | | | mg/dL | [...] + | [facility] [facility] | [address] | [place], [place] | [phone] | | [facility] | | [address] | | | - LABORATORY | | | | + + + + + | [facility] [facility] | [address] | [place], [place] | | | [facility] | | [address] | | | - LABORATORY | | [...] [address] | [place] | [phone] | | [facility] | | [address] | | | - LABORATORY | | | | + + + + + | [facility] [facility] | [address] | [place] | | | [facility] | | [address] | | | - LABORATORY | | | | + + + + + documented in this encounter Visit Diagnoses Not on filedocumented in this encounter"
--- OUTSIDE RECORDS SUMMARY | ~2019-10-23 | XMS | Encounter Summary ---
Demographics + + + | Address | [address] | | | [place] [address] | + + + | Home Phone [...] | Author | [facility] | | | and Rainerana | + + + | Organization | [facility] | | | and [...] [place], [place] | | | | | [address] | | + + + + + | Jelena Hill | ECON | [place] | | | | | [address] | | + + + + + Care Team Providers + +------+ + | Care Food Supervisor Name | Role | Phone | [...] | | Required | | dislocation | PARTS FACILITATOR [address] | [address] | | | | | of right | [address] | Ave | | | | | patella, | [place], | [place], [place] | | | | | subsequent | [place] [address] | [address] | | | | | encounter | Phone: | Phone: | | | | | Primary | [phone] | [phone] | | | | | osteoarthrit | Fax: | Fax: | | | | | is of right | [phone] | [phone] | | | | | knee | [...] | 07/25/ | Telephone | [facility] | Ivy Sun | Osteoarthritis | | 2015 | | [facility] | JUSTYN [address] | | | | | [address] | [place]VE [place], [place] | | | | | [place], [place] | [address] | | | | | [address] | | | | | | [phone] | | | +--------+ + + + [...] [place] | | | | | | [address] | | | | | | | [...]
--- OUTSIDE RECORDS SUMMARY | ~2019-10-23 | XMS | Clinical Summary ---
Demographics + + + | Address | [address] | | | [place] [address] | + + + | Home Phone [...] Author | [facility] | | | and Rainerana | + + + | Organization | [facility] | [...] [place], [place] | | | | | [address] | | + + + + + | Jelena Hill | ECON | [place] | | | | | [address] | | + + + + + Care Team Providers + +------+ + | Care Check Inspector Name | Role | Phone | + +------+ + | Ivy Sun | PCP | | + +------+ + Allergies No Known Allergies Medications + + + +---------+------+------+-------+ | Medication | Sig | Dispensed | Refills | Star | End | Statu | | | | | | t | Date | s | | | | | | Date | | | + + + +---------+------+------+-------+ | aspirin (ASPIRIN | Take 81 mg by mouth | | 0 | 06/28 | | Activ | | ADULT LOW STRENGTH) | Daily. | | | 11/16 | | e | | 81 MG EC tablet | | | | 12 | | | + + + +---------+------+------+-------+ +---+ + | | Additional | | | informationPatient | | | not taking. Reported | | | on 06/03/2019 11:01 | | | AM | +---+ + + + + +---+------+------+-------+ | UNCODED MEDICATION | Wear at all times | 1 | 0 | 07/28 | | Activ | | | while sleeping. | Device | | 03/16 | | e | | | | | | 12 | | | + + + +---+------+------+-------+ | UNCODED | Diagnosis: | 1 | 0 | 10/3 | | Activ | | MEDICATIONIndication | Obstructive Sleep | Device | | 0/20 | | e | | s: Obstructive sleep | ApneaICD-9: | | | 12 | | | | apnea (adult) | 327.23Length of | | | | | | | (pediatric) | Need: 99 Months | | | | | | + + + +---+------+------+-------+ | oxybutynin | Take 1 tablet by | 90 | 0 | 05/0 | | Activ | | (DITROPAN-XL) 10 MG | mouth Daily. | tablet | | 4/20 | | e | | 24 hr | | | | 18 | | | | tabletIndications: | | | | | | | | OAB (overactive | | | | | | | | bladder) | | | | | | | + + + +---+------+------+-------+ | UNABLE TO FIND | Med Name: Resmed | | 0 | | | Activ | | | AirSense 10 autoset | | | | | e | | | CPAP: 13-20cm while | | | | | | | | sleeping. | | | | | | + + + +---+------+------+-------+ | glucose blood | Test fasting 3 times | 100 | 4 | 06/0 | | Activ | | test strips (ONE | weekly, and check | each | | / | | e | | TOUCH ULTRA TEST) | 30 min pre and 2 | | | 18 | | | | stripIndications: | hours post main meal | | | | | | | [...] glucose | | | | | | | + + + +---+------+------+-------+ | Blood Glucose | Use to check blood | 1 each | 0 | 06/1 | | Activ | | Monitoring Suppl | sugars 3 times | | | /20 | | e | | (ONE TOUCH ULTRA | weekly. | | | 18 | | | | SYSTEM KIT) w/Device [...] glucose | | | | | | | + + + +---+------+------+-------+ | ONE TOUCH | Use to check blood | 100 | 1 | 06/1 | | Activ | | ULTRASOFT LANCETS | sugars 3 times a | each | | 12/17 | | e | | MISCIndications: | week | | | 18 | | | | Type 2 diabetes [...] glucose | | | | | | | + + + +---+------+------+-------+ | Blood Glucose | Use to calibrate | 1 each | 0 | /1 | | Activ | | Calibration (OT | glucometer | | | 20 | | e | | ULTRA/FASTTK CNTRL | | | | 18 | | | | SOLN) | | [...] glucose | | | | | | | + + + +---+------+------+-------+ | PARoxetine (PAXIL) | TAKE ONE TABLET BY | 90 | 1 | 12/1 | | Activ | | 40 MG tablet | MOUTH DAILY | tablet | | 2/20 | | e | | | | | | 18 | | | + + + +---+------+------+-------+ | rOPINIRole | TAKE ONE TABLET BY | 90 | 3 | 04/0 | | Activ | | (REQUIP) 2 MG tablet | MOUTH NIGHTLY | tablet | | 4/20 | | e | | | | | | 19 | | | + + + +---+------+------+-------+ | gabapentin | TAKE ONE TABLET BY | 90 | 1 | 04/0 | | Activ | | (NEURONTIN) 600 MG | MOUTH NIGHTLY | tablet | | 4/20 | | e | | tablet | | | | 19 | | | + + + +---+------+------+-------+ | ferrous sulfate | TAKE ONE TABLET BY | 180 | 1 | 04/0 | | Activ | | 325 mg tablet | MOUTH TWICE A DAY | tablet | | 8/20 | | e | | | | | | 19 | | | + + + +---+------+------+-------+ | simvastatin | TAKE ONE TABLET BY | 90 | 2 | 04/0 | | Activ | | (ZOCOR) 10 mg tablet | MOUTH ONCE NIGHTLY | tablet | | 4/20 | | e | | | | | | 19 | | | + + + +---+------+------+-------+ | nortriptyline | TAKE 3 CAPSULES BY | 270 | 2 | 04/1 | | Activ | | (PAMELOR) 10 MG | MOUTH NIGHTLY | capsule | | 5/20 | | e | | capsuleIndications: | | | | 19 | | | | Chronic insomnia | | | | | | | + + + +---+------+------+-------+ | cholecalciferol | Take 2,000 Units by | | 0 | | | Activ | | (CHOLECALCIFEROL) | mouth Daily. | | | | | e | | 2000 units TABS | | | | | | | + + + +---+------+------+-------+ | ELIQUIS 5 MG | TAKE ONE TABLET BY | 180 | 0 | 10/3 | | Activ | | tablet | MOUTH TWICE A DAY | tablet | | /20 | | e | | | | | | 19 | | | + + + +---+------+------+-------+ | tiZANidine | TAKE ONE TABLET BY | 30 | 0 | 12/1 | | Activ | | (ZANAFLEX) 2 MG | MOUTH EVERY 6 TO 8 | tablet | | 9/20 | | e | | tablet | HOURS NEEDED FOR | | | 19 | | | | | MUSCLE SPASMS | | | | | | + + + +---+------+------+-------+ | tiZANidine | TAKE ONE TABLET | 60 | 0 | 04/1 | 12/1 | Disco | | (ZANAFLEX) 2 MG | (2MG) BY MOUTH EVERY | tablet | | 5/20 | 9/20 | ntinu | | tablet | 6 TO 8 HOURS | | | 19 | 19 | ed | | | NEEDED FOR MUSCLE | | | | | | | | SPASMS. | | | | | | + + + +---+------+------+-------+ Active Problems + + + | Problem | Noted Date | + + + | RBBB (right bundle branch block) | 10/31/2018 | + + + | Elevated hemoglobin A1c | 10/31/2018 | + + + + + | Overview: 6.3 - 2017 | | 6.1 - 2016 | | 6.2 - 2016 | + + + + + | JENIFER Inhibitors - Daily Use | 10/31/2018 | + + + | OAB (overactive bladder) | 11/28/2016 | + + + | History of compression fracture of spine | 08/17/2015 | + + + + + | Overview: Mild compression fx T8. | | Diagnosed with right rib fracture | + + + + + | Postmenopausal bleeding | 04/20/2014 | + + + | Aortic root enlargement | 01/13/2014 | + + + + + | Overview: Echo 12/18/13, LVEF 69%. | + + + + + | H/O diagnostic tests | 12/14/2013 | + + + + + | Overview: Echo 06/16/12, LVEF 65%. | | Holter Monitor 06/16/12. | | Nuclear Stress Test 06/25/12, LVEF 80%. | + + + + + | Prediabetes | 12/09/2013 | + + + | H/O TKA Total knee arthroplasty, left | 09/27/2013 | + + + | Routine general medical examination at a health care facility | 08/25/2012 | + + + + + | Overview: Mammogram 10/20/13. Vida's. NormalPap smear | | 05/05/14Dexa 04/2013Colonoscopy 05-22-11. Diverticulosis. Hx colon | | polys. 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 Lucie Miller underwent attended | | polysomnography on July 08, 2012 which revealed a latency to | | sleep onset of 33 minutes and a sleep efficiency of 85.7%. The | | percentages of the various stages of sleep were Abnormal. The | | amount of N2 sleep was high and the amount of REM sleep was low. | | The arousal index was 84.5 which is high. The Respiratory | | Disturbance Index was 21.8; the Apnea-Hypopnea Index was 13.5; | | and the Apnea-Index was 2.6. The Respiratory Arousal Index was | | 19.4. The cleve oxygen saturation recorded during sleep was | | 88.0%. The patient spent 1.2 minutes with an oxygen saturation of | | less than 88%. There were 815 of Periodic Limb Movements and the | | PLMS Arousal Index was 60.9. | + + + + + | Restless legs syndrome | 06/24/2012 | + + + + + | Overview: Lucie Miller underwent attended polysomnography | | on July 08, 2012 which revealed a latency to sleep onset of | | 33 minutes and a sleep efficiency of 85.7%. The percentages of | | the various stages of sleep were Abnormal. The amount of N2 sleep | | was high and the amount of REM sleep was low. The arousal index | | was 84.5 which is high. The Respiratory Disturbance Index was | | 21.8; the Apnea-Hypopnea Index was 13.5; and the Apnea-Index was | | 2.6. The Respiratory Arousal Index was 19.4. The cleve oxygen | | saturation recorded during sleep was 88.0%. The patient spent 1.2 | | minutes with an oxygen saturation of less than 88%. There were | | 815 of Periodic Limb Movements and the PLMS Arousal Index was | | 60.9. | + + + + + | IMPAIRED FASTING GLUCOSE | 05/28/2012 | + + + | VITAMIN D DEFICIENCY | 08/21/2011 | + + + | H/O Colonic polyps | 02/14/2011 | + + + + + | Overview: Hx of adenomatous colonic polyps | + + + + + | ANXIETY | 08/16/2010 | + + + | Obesity, Class III, BMI 40-49.9 (morbid obesity) | 08/16/2010 | + + + | Osteopenia | | + + + + + | Overview: Fosamax since 2012DEXA BONE DENSITY STUDY WO VERT | | FX ASSESSMENT 09/06/2015 11:15 AMHISTORY: osteopenia and Hx of | | compression fracture of the spine.COMPARISON: May 12, | | 2012.PROTOCOL: Bone mineral density was calculated with dual | | absorption x-raytechnique.FINDINGS:Bone mineral density for the | | left femoral neck is 0.736 g/cm2, corresponding toa T score of | | -1.7 and a Z score of -0.6. This represents a 3.7% | | decreasecompared to baseline. This is not statistically | | significant.Bone mineral density for the lumbar spine measured | | from L1 to L2 is 0.851 g/cm2,corresponding to a T score of -1.2 | | and a Z score of 0.4. This represents a 1%decrease compared to | | baseline. This is not statistically significant. L3 andL4 are not | | utilized due to degenerative changes resulting in false | | elevation ofbone mineral density.IMPRESSION -Total bone mineral | | density for the left femoral neck corresponds to World | | HealthOrganization classification of osteopenia.Total bone | | mineral density for the L1 to L4 region of the lumbar | | spinecorresponds to World Health Organization classification of | | osteopenia. | |L4 are not utilized due to [...] World Health Organization classification of osteopenia. | + + + +---+ | Hyperlipidemia | | + +---+ | Osteoporosis | | + +---+ Resolved Problems + + + + | Problem | Noted | Resolved | | | Date | Date | + + + + | Seborrheic dermatitis | 10/14/20 | | | | 13 | 5 | + + + + | Rosacea | 10/14/20 | | | | 13 | 5 | + + + + | Hematuria | 05/12/20 | | | | 13 | 4 | + + + + | Itching | 05/12/20 | | | | 13 | 4 | + + + + | Leg cramps | 05/12/20 | | | | 13 | 4 | + + + + | Hypertension | 06/26/20 | | | | 12 | 9 | + + + + | PERS HX TOBACCO USE PRESENTING HAZARDS HEALTH | 06/26/20 | | | | 12 | 5 | + + + + | CIRCADIAN RHYTHM SLEEP DISORDER SHIFT WORK TYPE | 06/24/20 | | | | 12 | 5 | + + + + | Snoring | 06/12/20 | | | | 12 | 5 | + + + + | Weakness | 06/12/20 | | | | 12 | 4 | + + + + | ELECTROCARDIOGRAM, ABNORMAL | 06/12/20 | | | | 12 | 5 | + + + + | Dizziness | 08/21/20 | | | | 11 | 4 | + + + + | Neoplasm of uncertain behavior of skin | 08/21/20 | | | | 11 | 4 | + + + + | INSOMNIA UNSPECIFIED | 08/16/20 | | | | 10 | 5 | + + + + + + | Overview: ICD-10 Record update | + + + +---+ + | Seborrheic keratosis | | | | | | 5 | + +---+ + | PAP SMEAR, ABNORMAL | | | | | | 5 | + +---+ + + + | Overview: REY [id number] R2 | + + + +---+ + | Obstructive sleep apnea on CPAP | | | | | | 9 | + +---+ + + + | Overview: Uses CPAP | + + Encounters +--------+--------+ + + + | Date | Type | Specialty | Care Team | Description | +--------+--------+ + + + | 10/13/ | Refill | Family Medicine | Ivy Sun | Medication Refill | | 2018 | | | L, TERMITE EXTERMINATOR | | +--------+--------+ + + + | 08/24/ | Refill | Family Medicine | Ivy Sun | Medication Refill | | 2018 | | | L, TERMITE EXTERMINATOR | | +--------+--------+ + + + from Last 3 Months Immunizations + + + + | Name | Administration Dates | Next Due | + + + + | INFLUENZA 67 Y OR >, | 07/22/2019, 10/01/2018 | | | TRIVALENT HIGH-DOSE | | | + + + + | INFLUENZA PF 20 Y OR | 10/14/2013, 08/25/2012 | | | >,TRIVALENT | | | | RECOMBINANT | | | + + + + | INFLUENZA PF 6Y OR | 07/30/2017 | | | >,QUAD DERIVED FROM | | | | TISS-CULT | | | + + + + | INFLUENZA PF | 07/24/2016, 08/17/2015, 11/10/2014 | | | QUAD(PED/ADOL/ADULT) | | | | ,PSKT or VIAL | | | + + + + | PNEUMOCOCCAL | 07/30/2017 | | | CONJUGATE 13-VALENT | | | | (PCV13) | | | + + + + | PNEUMOCOCCAL | 10/01/2018, 08/25/2012 | | | POLYSACCHARIDE | | | | 23-VALENT (PPSV23) | | | + + + + | TDAP, (ADOL/ADULT) | 07/24/2016, 01/15/2007 | | + + + + | ZOSTER, 1 DOSE | 05/13/2013 | | | (ZOSTAVAX) | | | + + + + Family History + + +------+ + | Medical History | Relation | Name | Comments | + + +------+ + | Heart attack | Father | | | + + +------+ + | Heart surgery | Father | | bypass | + + +------+ + | Stroke | Father | | | + + +------+ + | Diabetes | Maternal | | | | | Aunt | | | + + +------+ + | Heart disease | Maternal | | | | | Grandfath | | | | | er | | | + + +------+ + | Stroke | Maternal | | | | | Grandfath | | | | | er | | | + + +------+ + | Obesity | Maternal | | | | | Grandmoth | | | | | er | | | + + +------+ + | Other (see comment) | Maternal | | Pancreatitis | | | Grandmoth | | | | | er | | | + + +------+ + | Diabetes | Maternal | | | | | Uncle | | | + + +------+ + | Alzheimer's disease | Mother | | | + + +------+ + | No known problems | Paternal | | | | | Aunt | | | + + +------+ + | No known problems | Paternal | | | | | Aunt | | | + + +------+ + | Stroke | Paternal | | | | | Grandfath | | | | | er | | | + + +------+ + | Heart disease | Paternal | | | | | Grandmoth | | | | | er | | | + + +------+ + | Lung cancer | Paternal | | | | | Uncle | | | + + +------+ + | Heart disease | Paternal | | | | | Uncle | | | + + +------+ + | Thyroid disease | Sister | | | + + +------+ + + +------+ + + | Relation | Name | Status | Comments | + +------+ + + | Brother | | Alive | | + +------+ + + | Father | | | | | | | (Age | | | | | 83) | | + +------+ + + | Maternal Aunt | | | DIABETES | + +------+ + + | Maternal Aunt | | | | + +------+ + + | Maternal Grandfather | | | STROKE | | | | (Age | | | | | 80) | | + +------+ + + | Maternal Grandmother | | | PANCREATITIS | | | | (Age | | | | | 56) | | + +------+ + + | Maternal Uncle | | Alive | | + +------+ + + | Maternal Uncle | | Alive | | + +------+ + + | Maternal Uncle | | | | + +------+ + + | Mother | | | | | | | (Age | | | | | 77) | | + +------+ + + | Paternal Aunt | | Other | STATUS NOT LISTED | + +------+ + + | Paternal Aunt | | Other | STATUS NOT LISTED | + +------+ + + | Paternal Aunt | | | | + +------+ + + | Paternal Aunt | | | | + +------+ + + | Paternal Grandfather | | | | | | | (Age | | | | | 82) | | + +------+ + + | Paternal Grandmother | | | HEART DISEASE | | | | (Age | | | | | 72) | | + +------+ + + | Paternal Uncle | | | CANCER | | | | (Age | | | | | 70) | | + +------+ + + | Paternal Uncle | | Other | STATUS UNKNOWN | + +------+ + + | Paternal Uncle | | | | + +------+ + + | Paternal Uncle | | | | + +------+ + + | Sister | | Alive | | + +------+ + + Social History + + + [...] + + + + Plan of Treatment +--------+---------+ + + + | Date | Type | Specialty | Care Team | Description | +--------+---------+ + + + | 11/23/ | Office | Family Medicine | Ivy Sun | | | 2020 | Visit | | [address] | | | | | | [place] | | | | | | [address] | | | | | | | | +--------+---------+ + + + + + + + + | Health Maintenance | Due Date | Last Done | Comments | + + + + + | Adult Annual | | 10/01/2018, 08/29/2017, | | | Wellness Visit | 9 | 05/05/2013 | | + + + + + | Vaccine: Zoster (2 | | 05/13/2013 | Postponed from | | of 3) | 0 | | 07/08/2013 (Plan in | | | | | Place) | + + + + + | Breast Cancer | | 10/03/2018, 04/10/2016, | | | Screening | 0 | 10/20/2013, Additional history | | | | | exists | | + + + + + | Colorectal Cancer | | 05/22/2011, 05/20/2011 | | | Screening | 1 | | | | (Colonoscopy) | | | | + + + + + | Vaccine: | | 07/24/2016, 01/15/2007 | | | Dtap/Tdap/Td (3 - | 6 | | | | Td) | | | | + + + + + | Hepatitis C | Completed | 07/30/2017 | | | Screening | | | | + + + + + | Vaccine: | Completed | 10/01/2018, 07/30/2017, | | | Pneumococcal 65+ | | 08/25/2012 | | + + + + + | Vaccine: Influenza | Completed | 07/22/2019, 10/01/2018, | | | | | 07/30/2017, Additional history | | | | | exists | | + + + + + Results Not on filefrom Last 3 Months Insurance + +--------+ +--------+ + +--------+ | Payer | Benefi | Subscriber | Effect | Phone | Address | Type | | | t Plan | ID | venancio | | | | | | / | | Dates | | | | | | Group | | | | | | + +--------+ +--------+ + +--------+ | MEDICARE | MEDICA | [id number] | 05/28/20 | [phone] | | Medica | | | RE | | 17-Pre | 5 | | re | | | PART A | | sent | | | | | | AND B | | | | | | + +--------+ +--------+ + +--------+ | MODA | MODA | [id number] | 10/28/19 | [phone] | [address] | PPO | | | HEALTH | | 14-Pre | 9 | [address] | | | | | | sent | | [place], | | | | [place] | | | | [place] [address] | | | | [place] | | | | | | + +--------+ +--------+ + +--------+ + +--------+ +--------+ + + | Guarantor Name | Accoun | Relation to | Date | Phone | Billing Address | | | t Type | Patient | of | | | | | | | | | | + +--------+ +--------+ + + | Lucie Miller | Person | Self [birth year] | [address] | | | al/Fam | | 1949 | [phone] | [place] | | | [place]an | | | 0 (Home) | [address] | + +--------+ +--------+ + + Advance Directives + + + + + | Type | Date Recorded | Patient | Explanation | | | | Chief Of Internal Medicine | | + + + + + | Power of | | | | | Jewel Hole Rough Opener | | | | + + + + + | Advance | 09/30/2018 4:11 | | | | Directive | PM | | | + + + + + + + + + + | Code Status | Date | Date | Comments | | | Activated | Inactivated | | + + + + + | Full Code | 11/03/2018 | 11/03/2018 | | | | 2:28 PM | 5:33 PM | | + + + + + + + + +---+ | | | | | + + + +---+ | Full Code | 06/03/2014 | 06/03/2014 | | | | 8:36 AM | 12:21 PM | | + + + +---+
--- OUTSIDE RECORDS SUMMARY | ~2019-10-23 | XMS | Encounter Summary ---
Demographics + + + | Address | [address] | | | [place] [address] | + + + | Home Phone [...] | Author | [facility] | | | and [place] | + + + | Organization | [facility] | | | and [place] | [...] [place], [place] | | | | | [address] | | + + + + + | [address] | ECON | [place] | | | | | [address] | | + + + + + Care Team Providers + +------+ + | Care Guidance Director Name | Role | Phone | + +------+ + | Ivy Sun | PCP | | + +------+ + Encounter Details +--------+ + + + + | Date | Type | Department | Care Team | Description | +--------+ + + + + | 08/28/ | Hospital | [facility] | Ivy Sun | | | 2016 | Encounter | [facility] | L, TRAVEL REGISTERED NURSE ICU [address] | | | | | [address] [place] | [address] [place], [place] | | | | | [place], [place] | [address] | | | | | [address] | | | | | | [phone] | | | +--------+ + + + [...] [place] | | | | | | [id number] | | | | | | | | +--------+---------+ + + + documented as of this encounter Visit Diagnoses Not on filedocumented in this encounter"
--- OUTSIDE RECORDS SUMMARY | ~2019-10-23 | XMS | Encounter Summary ---
Demographics + + + | Address | [address] | | | [place] [address] | + + + | Home Phone [...] Author | [facility] | | | and Rainerana | + + + | Organization | [facility] | | [...] [place], [place] | | | | | [address] | | + + + + + | Jelena Hill | ECON | [place] | | | | | [address] | | + + + + + Care Team Providers + +------+ + | Care Insurance Claims Representative Name | Role | Phone | + [...] + | 10/19/ | Telephone | [facility] | Ivy Sun | Results (lab ) | | 2012 | | [facility] [place] | JUSTYN Keating [address] | | | | | [address] | [place]VE [place] | | | | | [place] | [id number] | | | | | [address] | | | | | | [phone] | | | +--------+ + + + [...] [place] | | | | | | [address] | | | | | | | | +--------+---------+ + + + documented as of this encounter Visit Diagnoses + + | Diagnosis | + + | Unspecified vitamin D deficiency - Primary | + + documented in this encounter"
--- OUTSIDE RECORDS SUMMARY | ~2019-10-23 | XMS | Encounter Summary ---
Demographics + + + | Address | [address] | | | [place] [address] | + + + | Home Phone [...] | [facility] | | | and Rainerana | + + + | Organization | [facility] | | [...] [place], [place] | | | | | [address] | | + + + + + | Jelena Hill | ECON | [place] | | | | | [address] | | + + + + + Care Team Providers + +------+ + | Care Metal Trades Instructor Name | Role | Phone | [...] + + | 10/14/ | Telephone | [facility] | Ivy Sun | Medication Refill | | 2012 | | [facility]IC[facility] [place] | [place] Keating [address] | | | | | [address] | [place] [place], [place] | | | | | [place], [place] | [address] | | | | | [address] | | | | | | [phone] | | | +--------+ + + + [...] 2ND | | | | | | [place] | | | | | | [phone] | | | | | | | | +--------+---------+ + + + documented as of this encounter Visit Diagnoses Not on filedocumented in this encounter"
--- OUTSIDE RECORDS SUMMARY | ~2019-10-23 | XMS | Encounter Summary ---
Demographics + + + | Address | [address] | | | [place] [address] | + + + | Home Phone [...] Author | [facility] | | | and Rainerana | + + + | Organization | [facility] | | | and Rainerana | [...] [place], [place] | | | | | [address] | | + + + + + | Jelena Hill | ECON | [place] | | | | | [address] | | + + + + + Care Team Providers + +------+ + | Care Butt Presser Name | Role | Phone | + +------+ + | Ivy Sun | PCP | | + +------+ + Encounter Details +--------+ + + + + | Date | Type | Department | Care Team | Description | +--------+ + + + + | 05/19/ | Orders Only | [facility] | Herman Huizar V, | | | 2018 | | CONVERSION 888 | MD [address] | | | | | [address] | [address] [place] | | | | | [place] | [address] | | | | | [address] | | | | | | [phone] | | | +--------+ + + + [...] [place] | | | | | | [address] | | | | | | | | +--------+---------+ + + + documented as of this encounter Procedures + +--------+ + + + | Procedure Name | Priori | Date/Time | Associated Diagnosis | Comments | | | ty | | | | + +--------+ + + + | ECHO INTERPRETATION | Routin | 05/19/2019 | | Results for this | | OF OUTSIDE FILMS | e | 9:47 AM | | procedure are in the | | | | PDT | | results section. | + +--------+ + + + documented in this encounter Results ECHO Interpretation of Outside Films (05/19/2019 9:47 AM PDT) + + | Specimen | + + | | + + + + + | Impressions | Performed At | + + + | 1. Overall left ventricular systolic function is normal with an EF | | | between 55 - 60%. 2. The diastolic filling pattern indicates impaired | | | relaxation consistent with mild dysfunction (Grade I). 3. The right | | | ventricle is mildly enlarged. The right ventricular systolic | | | function is mild-moderately impaired, although the apex is spared | | | (Escobar's sign, highly suggestive of a PE). 4. There is moderate | | | to severe pulmonary hypertension. The right ventricular systolic | | | pressure (pulmonary artery systolic pressure), as measured by Doppler, | | | is 58.3 - 63.3 mm Hg. This is consistent with acute cor pulmonale. | | | 5. No clinically significant valvular abnormalities are noted. | | + + + + + + | Narrative | Performed At | + + + | Patient Name: Lucie Miller Date of : 1950 | | | Performing Physician: Thad Knight MD | | | | | | INDICATIONS Pulmonary embolism CONCLUSIONS | | | 1. Overall left ventricular systolic function is normal | | | with an EF between 55 - 60%. 2. The diastolic filling pattern | | | indicates impaired relaxation consistent with mild dysfunction (Grade | | | I). 3. The right ventricle is mildly enlarged. The right | | | ventricular systolic function is mild-moderately impaired, although | | | the apex is spared (Escobar's sign, highly suggestive of a PE). 4. | | | There is moderate to severe pulmonary hypertension. The right | | | ventricular systolic pressure (pulmonary artery systolic pressure), as | | | measured by Doppler, is 58.3 - 63.3 mm Hg. This is consistent with | | | acute cor pulmonale. 5. No clinically significant valvular | | | abnormalities are noted. FINDINGS -------- ECG rhythm: mild | | | sinus ECG rhythm: tachycardia (HR 101 bpm). Study: A 2-dimensional | | | transthoracic echocardiogram with m-mode, spectral and color flow | | | Doppler was perfomed at [facility]. Study: This was a technically adequate | | | study. Left Ventricle: Overall left ventricular systolic function is | | | normal with an EF between 55 - 60%. Left Ventricle: The left | | | ventricle cavity size is normal. Left Ventricle: Left ventricular | | | wall thickness is normal. Left Ventricle: No regional wall motion | | | abnormalities. Left Ventricle: The diastolic filling pattern | | | indicates impaired relaxation consistent with mild dysfunction (Grade | | | I). Right Ventricle: The right ventricle is mildly enlarged. Right | | | Ventricle: The right ventricular systolic function is mild-moderately | | | impaired, although the apex is spared (Escobar's sign, highly | | | suggestive of a PE). Right Ventricle: A flattened D - shaped septum | | | is seen in systole, which is consistent with right ventricular | | | pressure overload. Left Atrium: The left atrium is normal in size. | | | Right Atrium: The right atrium is normal in size. Aortic Valve: | | | Aortic valve is mildly thickened and calcified. Aortic Valve: The | | | aortic valve appears to be trileaflet. Aortic Valve: Trace amount of | | | aortic regurgitation. Aortic Valve: There is mild aortic valve | | | sclerosis without stenosis. Mitral Valve: The mitral valve is normal. | | | Mitral Valve: There is trace mitral regurgitation. Mitral Valve: | | | Mild mitral annular calcification present. Mitral Valve: No evidence | | | of MVP. Tricuspid Valve: The tricuspid valve appears structurally | | | normal. Tricuspid Valve: [id number] tricuspid regurgitation | | | present. Tricuspid Valve: The right ventricular systolic pressure | | | (pulmonary artery systolic pressure), as measured by Doppler, is 58.3 | | | - 63.3 mm Hg. Tricuspid Valve: There is moderate to severe pulmonary | | | hypertension. Pulmonic Valve: The pulmonic valve was not well | | | visualized. Pulmonic Valve: Trace pulmonic regurgitation. | | | Pericardium: There is no pericardial effusion. IVC/Hepatic Veins: The | | | IVC is normal size (1.5-2.5cm) and collapses <50% with sniff, | | | consistent with central venous pressures of 10-15mmHg. Aorta: The | | | aortic root, ascending aorta and aortic arch are normal. Pulmonary | | | Veins: The flow patterns, measured by Doppler, appear normal. Mass: | | | No mass visualized Thrombus: No clot visualized Thrombus: No | | | vegetation visualized. Septum: No ASD observed. Septum: No VSD | | | observed. Septum: Lipomatous Hypertrophy of the atrial septum is | | | present MEASUREMENTS Ao asc: 3.76 cm Ao Diam: | | | 3.67 cm Ao sinus: 3.[address] junct: 3.35 cm IVC: | | | 1.91 cm LA Major: 4.42 cm EDV(Teich): 64.84 ml IVSd: 0.96 | | | cm LVIDd: 3.87 cm LVPWd: 1.02 cm LVOT Diam: 2.24 cm %FS: | | | 21.32 % EF(Teich): 43.91 % ESV(Teich): 36.36 ml LVIDs: | | | 3.04 cm SV(Teich): 28.47 ml RA Major: 4.69 cm RV Major: | | | 7.68 cm RV Minor: 3.66 cm RV Minor: 3.48 cm LVEF MOD A2C: | | | 55.90 % SV MOD A2C: 37.12 ml LVEF MOD A4C: 54.63 % SV MOD | | | A4C: 32.49 ml EF Biplane: 56.31 % LVEDV MOD BP: 64.22 ml | | | LVESV MOD BP: 28.05 ml LVEDV MOD A2C: 66.40 ml LVLd A2C: | | | 7.65 cm LVEDV MOD A4C: 59.47 ml LVLd A4C: 8.01 cm LVESV MOD | | | A2C: 29.28 ml LVLs A2C: 6.27 cm LVESV MOD A4C: 26.98 ml | | | LVLs A4C: 6.31 cm LAESV(A-L): 31.69 ml LAESV Index (A-L): | | | 13.48 ml/m2 LAAs A2C: 15.12 cm2 LAESV A-L A2C: 39.81 ml LAESV | | | MOD A2C: 37.29 ml LALs A2C: 4.87 cm LAAs A4C: 11.65 cm2 | | | LAESV A-L A4C: 24.43 ml LAESV MOD A4C: 23.28 ml LALs A4C: | | | 4.71 cm RAAs: 11.93 cm2 RAESV A-L: 25.39 ml RAESV MOD: | | | 24.73 ml RALs: 4.76 cm TAPSE: 1.46 cm AV Env.Ti: 194.08 ms | | | AV maxP.89 mmHg AV meanP.89 mmHg AV Vmax: 0.98 | | | m/s AV Vmean: 0.63 m/s AV VTI: 12.40 cm AMANDA Vmax: 3.37 cm2 | | | AMANDA (VTI): 4.23 cm2 AVAI Vmax: 0.00 cm2/m2 AVAI (VTI): | | | 0.00 cm2/m2 LVOT Env.Ti: 248.72 ms LVOT maxP.84 mmHg LVOT | | | meanP.35 mmHg LVSI Dopp: 22.33 ml/m2 LVSV Dopp: 52.49 | | | ml LVOT Vmax: 0.84 m/s LVOT Vmean: 0.53 m/s LVOT VTI: | | | 13.26 cm MV A Jaquan: 0.81 m/s MV Dec Fentress: 3.38 m/s2 MV DecT: | | | 163.73 ms MV E Jaquan: 0.55 m/s MV E/A Ratio: 0.68 E/E' Sept: | | | 23.91 E' Lat: 0.06 m/s E' Sept: 0.02 m/s RAP: 10 mmHg | | | RV S': 0.05 m/s RVSP: 57.39 mmHg TR maxP.39 mmHg TR | | | Vmax: 3.44 m/s Stock Roller: Authenticated by: Thad Knight, | | | Report Date/Time: -- [id number] | | + + + + + | Procedure Note | + + | Nic Sheffield Conversion - 06/18/2019 1:50 PM PDT Patient Name: Brandon Miller of | | : 1950 Performing Physician: Thad Knight, | | INDICATIONS P | | ulmonary embolism CONCLUSIONS 1. Overall left ventricular systolic function is | | normal with an EF between 55 - 60%.2. The diastolic filling pattern indicates impaired | | relaxation consistent with mild dysfunction (Grade I).3. The right ventricle is mildly | | enlarged. The right ventricular systolic function is mild-moderately impaired, although | | the apex is spared (Escobar's sign, highly suggestive of a PE).4. There is moderate | | to severe pulmonary hypertension. The right ventricular systolic pressure (pulmonary | | artery systolic pressure), as measured by Doppler, is 58.3 - 63.3 mm Hg. This is | | consistent with acute cor pulmonale. 5. No clinically significant valvular abnormalities | | are noted. FINDINGS--------ECG rhythm: mild sinusECG rhythm: tachycardia (HR 101 | | bpm).Study: A 2-dimensional transthoracic echocardiogram with m-mode, spectral and color | | flow Doppler was perfomed at [facility].Study: This was a technically adequate study.Left | | Ventricle: Overall left ventricular systolic function is normal with an EF between 55 - | | 60%.Left Ventricle: The left ventricle cavity size is normal.Left Ventricle: Left | | ventricular wall thickness is normal.Left Ventricle: No regional wall motion | | abnormalities.Left Ventricle: The diastolic filling pattern indicates impaired | | relaxation consistent with mild dysfunction (Grade I).Right Ventricle: The right | | ventricle is mildly enlarged.Right Ventricle: The right ventricular systolic function is | | mild-moderately impaired, although the apex is spared (Escobar's sign, highly | | suggestive of a PE).Right Ventricle: A flattened D - shaped septum is seen in systole, | | which is consistent with right ventricular pressure overload.Left Atrium: The left | | atrium is normal in size.Right Atrium: The right atrium is normal in size.Aortic Valve: | | Aortic valve is mildly thickened and calcified.Aortic Valve: The aortic valve appears to | | be trileaflet.Aortic Valve: Trace amount of aortic regurgitation.Aortic Valve: There is | | mild aortic valve sclerosis without stenosis.Mitral Valve: The mitral valve is | | normal.Mitral Valve: There is trace mitral regurgitation.Mitral Valve: Mild mitral | | annular calcification present.Mitral Valve: No evidence of MVP.Tricuspid Valve: The | | tricuspid valve appears structurally normal.Tricuspid Valve: [id number] tricuspid | | regurgitation present.Tricuspid Valve: The right ventricular systolic pressure | | (pulmonary artery systolic pressure), as measured by Doppler, is 58.3 - 63.3 mm | | Hg.Tricuspid Valve: There is moderate to severe pulmonary hypertension.Pulmonic Valve: | | The pulmonic valve was not well visualized.Pulmonic Valve: Trace pulmonic | | regurgitation.Pericardium: There is no pericardial effusion.IVC/Hepatic Veins: The IVC | | is normal size (1.5-2.5cm) and collapses <50% with sniff, consistent with central venous | | pressures of 10-15mmHg.Aorta: The aortic root, ascending aorta and aortic arch are | | normal.Pulmonary Veins: The flow patterns, measured by Doppler, appear normal.Mass: No | | mass visualizedThrombus: No clot visualizedThrombus: No vegetation visualized.Septum: No | | ASD observed.Septum: No VSD observed.Septum: Lipomatous Hypertrophy of the atrial | | septum is present MEASUREMENTS Ao asc: 3.76 cmAo Diam: 3.67 cmAo sinus: | | 3.[address] junct: 3.35 cmIVC: 1.91 cmLA Major: 4.42 cmEDV(Teich): 64.84 | | mlIVSd: 0.96 cmLVIDd: 3.87 cmLVPWd: 1.02 cmLVOT Diam: 2.24 cm%FS: 21.32 | | %EF(Teich): 43.91 %ESV(Teich): 36.36 mlLVIDs: 3.04 cmSV(Teich): 28.47 mlRA | | Major: 4.69 cmRV Major: 7.68 cmRV Minor: 3.66 cmRV Minor: 3.48 cmLVEF MOD A2C: | | 55.90 %SV MOD A2C: 37.12 mlLVEF MOD A4C: 54.63 %SV MOD A4C: 32.49 mlEF Biplane: | | 56.31 %LVEDV MOD BP: 64.22 mlLVESV MOD BP: 28.05 mlLVEDV MOD A2C: 66.40 mlLVLd | | A2C: 7.65 cmLVEDV MOD A4C: 59.47 mlLVLd A4C: 8.01 cmLVESV MOD A2C: 29.28 mlLVLs | | A2C: 6.27 cmLVESV MOD A4C: 26.98 mlLVLs A4C: 6.31 cmLAESV(A-L): 31.69 mlLAESV | | Index (A-L): 13.48 ml/m2LAAs A2C: 15.12 [id number] A-L A2C: 39.81 mlLAESV MOD A2C: | | 37.29 mlLALs A2C: 4.87 cmLAAs A4C: 11.65 [id number] A-L A4C: 24.43 mlLAESV MOD A4C: | | 23.28 mlLALs A4C: 4.71 cmRAAs: 11.93 [id number] A-L: 25.39 mlRAESV MOD: 24.73 | | mlRALs: 4.76 cmTAPSE: 1.46 cmAV Env.Ti: 194.08 msAV maxP.89 mmHgAV meanPG: | | 1.89 mmHgAV Vmax: 0.98 m/Griselda Vmean: 0.63 m/Griselda VTI: 12.40 cmAVA Vmax: 3.37 | | cm2AVA (VTI): 4.23 [id number] Vmax: 0.00 cm2/m2AVAI (VTI): 0.00 cm2/m2LVOT Env.Ti: | | 248.72 msLVOT maxP.84 mmHgLVOT meanP.35 mmHgLVSI Dopp: 22.33 ml/m2LVSV | | Dopp: 52.49 mlLVOT Vmax: 0.84 m/sLVOT Vmean: 0.53 m/sLVOT VTI: 13.26 cmMV A Jaquan: | | 0.81 m/sMV Dec Fentress: 3.38 m/s2MV DecT: 163.73 msMV E Jaquan: 0.55 m/sMV E/A | | Ratio: 0.68E/E' Sept: 23.91E' Lat: 0.06 m/sE' Sept: 0.02 m/sRAP: 10 mmHgRV S': | | 0.05 m/sRVSP: 57.39 mmHgTR maxP.39 mmHgTR Vmax: 3.44 m/s | | Stock Roller:Authenticated by: Kamron Banegas Date/Time: -- | | [id number] IMPRESSION: 1. Overall left ventricular systolic function is | | normal with an EF between 55 - 60%.2. The diastolic filling pattern indicates impaired | | relaxation consistent with mild dysfunction (Grade I).3. The right ventricle is mildly | | enlarged. The right ventricular systolic function is mild-moderately impaired, although | | the apex is spared (Escobar's sign, highly suggestive of a PE).4. There is moderate | | to severe pulmonary hypertension. The right ventricular systolic pressure (pulmonary | | artery systolic pressure), as measured by Doppler, is 58.3 - 63.3 mm Hg. This is | | consistent with acute cor pulmonale. 5. No clinically significant valvular abnormalities | | are noted. | |EDV(Teich): 64.84 ml | |IVSd: 0.96 cm | |LVIDd: 3.87 cm | |LVPWd: 1.02 cm | |LVOT Diam: 2.24 cm | |%FS: 21.32 % | |EF(Teich): 43.91 % | |ESV(Teich): 36.36 ml | |LVIDs: 3.04 cm | |SV(Teich): 28.47 ml | |RA Major: 4.69 cm | |RV Major: 7.68 cm | |RV Minor: 3.66 cm | |RV Minor: 3.48 cm | |LVEF MOD A2C: 55.90 % | |SV MOD A2C: 37.12 ml | |LVEF MOD A4C: 54.63 % | |SV MOD A4C: 32.49 ml | |EF Biplane: 56.31 % | |LVEDV MOD BP: 64.22 ml | |LVESV MOD BP: 28.05 ml | |LVEDV MOD A2C: 66.40 ml | |LVLd A2C: 7.65 cm | |LVEDV MOD A4C: 59.47 ml | |LVLd A4C: 8.01 cm | |LVESV MOD A2C: 29.28 ml | |LVLs A2C: 6.27 cm | |LVESV MOD A4C: 26.98 ml | |LVLs A4C: 6.31 cm | |LAESV(A-L): 31.69 ml | |LAESV Index (A-L): 13.48 ml/m2 | |LAAs A2C: 15.12 cm2 | |LAESV A-L A2C: 39.81 ml | |LAESV MOD A2C: 37.29 ml | |LALs A2C: 4.87 cm | |LAAs A4C: 11.65 cm2 | |LAESV A-L A4C: 24.43 ml | |LAESV MOD A4C: 23.28 ml | |LALs A4C: 4.71 cm | |RAAs: 11.93 cm2 | |RAESV A-L: 25.39 ml | |RAESV MOD: 24.73 ml | |RALs: 4.76 cm | |TAPSE: 1.46 cm | |AV Env.Ti: 194.08 ms | |AV maxP.89 mmHg | |AV meanP.89 mmHg | |AV Vmax: 0.98 m/s | |AV Vmean: 0.63 m/s | |AV VTI: 12.40 cm | |AMANDA Vmax: 3.37 cm2 | |AMANDA (VTI): 4.23 cm2 | |AVAI Vmax: 0.00 cm2/m2 | |AVAI (VTI): 0.00 cm2/m2 | |LVOT Env.Ti: 248.72 ms | |LVOT maxP.84 mmHg | |LVOT meanP.35 mmHg | |LVSI Dopp: 22.33 ml/m2 | |LVSV Dopp: 52.49 ml | |LVOT Vmax: 0.84 m/s | |LVOT Vmean: 0.53 m/s | |LVOT VTI: 13.26 cm | |MV A Jaquan: 0.81 m/s | |MV Dec Fentress: 3.38 m/s2 | |MV DecT: 163.73 ms | |MV E Jaquan: 0.55 m/s | |MV E/A Ratio: 0.68 | |E/E' Sept: 23.91 | |E' Lat: 0.06 m/s | |E' Sept: 0.02 m/s | |RAP: 10 mmHg | |RV S': 0.05 m/s | |RVSP: 57.39 mmHg | |TR maxP.39 mmHg | |TR Vmax: 3.44 m/s | | | |Stock Roller: | |Authenticated by: Thad Knight MD | |Report Date/Time: -- [id number] | | | |IMPRESSION: | |1. Overall left ventricular systolic function is normal with an EF between 55 - 60%. | |2. The diastolic filling pattern indicates impaired relaxation consistent with mild dysfunc tion (Grade I). | |3. The right ventricle is mildly enlarged. The right ventricular systolic function is mild -moderately impaired, although the apex is spared (Escobar's sign, highly suggestive of a PE). | |4. There is moderate to severe pulmonary hypertension. The right ventricular systolic press ure (pulmonary artery systolic pressure), as measured by Doppler, is 58.3 - 63.3 mm Hg. Thi s is consistent with acute | |cor pulmonale. 5. No clinically significant | |valvular abnormalities are noted. | + + documented in this encounter Visit Diagnoses Not on filedocumented in this encounter"
--- OUTSIDE RECORDS SUMMARY | ~2019-10-23 | XMS | Encounter Summary ---
Demographics + + + | Address | [address] | | | [place] [address] | + + + | Home Phone [...] | Author | [facility] | | | and Rainerana | + + + | Organization | [facility] [...] [place], [place] | | | | | [address] | | + + + + + | Jelena Hill | ECON | [place] | | | | | [address] | | + + + + + Care Team Providers + +------+ + | Care Sales Service Technician Name | Role | Phone | [...] + | 10/22/ | Refill | [facility] | Ivy Sun | Medication Refill | | 2012 | | MEDICINE [place] | Rishabh, JUSTYN [address] | | | | | [address] | [place] [place], [place] | | | | | [place], [place] | [address] | | | | | [address] | | | | | | [phone] | | | +--------+--------+ + + + [...] [place] | | | | | | [address] | | | | | | | | +--------+---------+ + + + documented as of this encounter Visit Diagnoses + + | Diagnosis | + + | Unspecified vitamin D deficiency - Primary | + + documented in this encounter"
--- OUTSIDE RECORDS SUMMARY | ~2019-10-23 | XMS | Encounter Summary ---
Demographics + + + | Address | [address] | | | [place] [address] | + + + | Home Phone | | + + + | Preferred Language | Unknown | + + + | Marital Status | Single | + + + | Mormon Affiliation | 1077 | + + + | Race | Unknown | + + + | Ethnic Group | Unknown | + + + Author + + + | Author | [facility] | | | and Rainerana | + + + | Organization | [facility] | | | and Rainerana [...] [place], [place] | | | | | [address] | | + + + + + | Jelena Hill | ECON | [place] | | | | | [address] | | + + + + + Care Team Providers + +------+ + | Care Physician Relations Representative Name | Role | Phone | [...] Medicine | KAMERON | Reymundo Allen | [place] [address] | | | Required | | (obstructive | MD Ivy [address] | [place] | | | | | sleep | [place] | [place], | | | | | apnea) | [facility] | [place] [address] | | | | | Restless | [place], [place] | Phone: | | | | | legs | [address] | [phone] | | | | | syndrome | Phone: | Fax: | | | | | Procedures | [phone] | [phone] | | | | | [place] [facility] | Fax: | | | | | | 6/>YRS SLEEP | [phone] | | | | | | 4/> ADDL | | | | | | | ANNA ATTND | | | | | | | NPSG (sched | | | | | | | 12/5) | | | +--------+ + + + + + Reason for Visit +---------+ + | Reason | Comments | +---------+ + | Consult | | +---------+ + | Apnea | | +---------+ + Evaluate & Treat (Routine) +--------+ + + + + + | Status | Reason | Specialty | Diagnoses / | Referred By | Referred To | | | | | Procedures | Contact | Contact | +--------+ + + + + + | Closed | Specialty | Sleep | Diagnoses | Dino | Mac[facility] | | | Services | Medicine | Obstructive | Ivy Keating | [facility] | | | Required | | sleep apnea | [facility] [address] | Disorder [address] | | | | | | [address] | [address] [place] | | | | | | [place], | [place], | | | | | | [place] [address] | [place] [address] | | | | | | Phone: | Phone: | | | | | | [phone] | [phone] | | | | | | Fax: | Fax: | | | | | | [phone] | [phone] | +--------+ + + + + + Encounter Details +--------+---------+ + + + | Date | Type | Department | Care Team | Description | +--------+---------+ + + + | 09/16/ | Office | [facility] | Reymundo Guillory | KAMERON (obstructive | | 2017 | Visit | SLEEP DISORDER [address] | MD [address] | sleep apnea) | | | | [address] [place] | [address] [place] | (Primary Dx); | | | | [place] [address] | [place] [address] | Restless legs | | | | [phone] | [phone] | syndrome; Low | | | | [...] + + + | Blood Pressure | 108/70 | 09/16/2017 10:05 AM | | | | | PST | | + + + + + | Pulse | 124 | 09/16/2017 10:05 AM | | | | | PST | | + + + + + | Temperature | - | - | | + + + + + | Respiratory Rate | 16 | 09/16/2017 10:05 AM | | | | | PST | | + + + + + | Oxygen Saturation | 97% | 09/16/2017 10:05 AM | | | | | PST | | + + + + + | Inhaled Oxygen | - | - | | | Concentration | | | | + + + + + | Weight | 132.5 kg (292 lb 1.8 | 09/16/2017 10:05 AM | | | | oz) | PST | | + + + + + | Height | 165.1 cm (5' 5") | 09/16/2017 10:05 AM | | | | | PST | | + + + + + | Body Mass Index | 48.61 | 09/16/2017 10:05 AM | | | | | PST | | + + + + + documented in this encounter Patient Instructions Patient Instructions Reymundo Guillory Jr., MD - 09/16/2017 11:21 AM PST Restless Legs Syndrome: What You Can Do Symptoms of restless leg syndrome (RLS) can be treated. Together, you and your health care provider can work on your treatment plan. If needed, medications may be prescribed. Also trudy alcala what you can do to ease your discomfort. Good sleep habits and a healthy lifestyle will h elp you rest better at night and have more energy during the day. Working with your health care provider RLS may occur on its own and may be passed on in families. It is sometimes linked to other medical problems. Lowiron may cause some RLS symptoms. Your health care provider may order a lab test to check your iron level. Other medical problems associated with RLS are kidney disease, diabetes, and multiple sclerosis. Your doctor mayprescribe medications to reduce your symptoms and help you sleep better. Tips for temporary relief To reduce your discomfort, try the following: Walking or stretching Rubbing your legs Having a massage Taking a hot or cold bath Doing activities that make muscles in your hands or legs work Relaxing with yoga or meditation Good sleep habits Even though you have RLS, you can still have restful sleep. Try these good sleeping habits: Keep a regular sleep schedule. Go to bed and get up at the same time each day. Avoid or limit naps. Make sure the bedroom is quiet, dark, and not too hot or too cold. Use your bed only for sleep and sex. Healthy lifestyle Your lifestyle affects your health and your sleep. Here are some healthy habits: Eat a balanced diet. To get enough vitamins and minerals, you may also need to take supp lements. Manage stress and learn ways to relax. Deep breathing techniques and visualization can h elp to relax your muscles and calm your mind. Exercise regularly. It can help reduce stress. Also, you will have more energy during th e day and be more tired at bedtime. Afternoon exercise is best. Nighttime exercise may affec t how well you sleep. Avoid alcohol, nicotine, and caffeine. Date Last Reviewed: 04/03/201519993957-0913 [facility]. [address] [place] [address], [place] [address]. All righ ts reserved. This information is not intended as a substitute for professional medical care. Always follow your healthcare professional's instructions. documented in this encounter Progress Notes Reymundo Guillory Jr., MD - 09/16/2017 10:00 AM PSTFormatting of this note might be differen t from the original. [facility] [place] [address] Ref: Ivy Sun ARNP CC: Chief Complaint Patient presents with Consult Apnea History of the Present Illness:This is a 67 year old female who is referred for sleep medic ine consultation by Capri ALEJANDRA because of KAMERON. Other significant medical issues include D epression/anxiety, aortic root enlargement, DJD, HBP, KAMERON, Obesity, prediabetes, rosacea, RL S. The patient's records ([facility] EMR and old sleep records) are reviewed. The patient is inte rviewed and examined. Capri uSn's records indicate that the patient needs the following surge eric: bladder augmentation, cataract surgery, total right knee, spinal fusion and tonsillect lion. This patient underwent PSG in our sleep center on 07/08/2012 which revealed a sleep effi ciency of 85.7%. All stages of sleep were noted and the latency to REM sleep was prolonged a t 292 minutes. The RDI was 21.8 and the AHI was 13.5. The cleve oxygen saturation was 85%. T he PLMS Arousal Index was elevated at 60.9. 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 Auto-t itrating CPAP 5-14cm was prescribed as well as instructions to help with shift work. She was unable to wear CPAP on a regular basis. She was last seen in our APAP adherence clinic on 12/04/2011. She stopped wearing her CPAP shortly thereafter. Bedtime currently MN and rise time is about 10am. She estimates a latency to sleep onset of 30 minutes ("now that I'm taking my meds again"). She has nocturia twice a night and she ge ts back to sleep easily. She occasionally has nocturnal heartburn. She denies night sweats. She can awaken with a dry mouth in the morning. She denies nasal/sinus congestion or morning headaches. Other that to urinate she might awaken 2 or 3 other times to change positions. She dreams infrequently. She isn't a sleep walker. She has been told that she laughs in her sleep but she doesn't act out dreams. She denies sleep paralysis. She gets restlessness in her legs at night. It is horrible and it is a tremendous problem. She has an uncontrollable desire to move and often gets up at night to exercise and walk radha und her bed. She is now on ropinirole which helps. In 2011 she had a low ferritin of 21 and recalls getting IV iron but she doesn't recall if this improved her RLS symptoms. She doesn't think that she currently snores (her relationship with Willie of 27 years ended 6 months ago). She was snoring up to a year ago though. She sleeps in all positions although s he prefers to sleep on her left side. In the daytime she can still get sleepy if she sits. She doesn't nap on purpose She doesn' t fall asleep driving. She can fall asleep in concerts in the past. She denies cataplexy. Melissa bennett consumes diet caffeine containing soda 12 ounces a day. Past Medical History: has a past medical history of Abnormal glandular Papanicolaou smear of cervix; Anxiety state, unspecified; Aortic root enlargement (HCC) (01/13/2014); Bronchitis , not specified as acute or chronic; Cataract (); Depressed; Disorder of bone and cart ilage, unspecified; Eczema; Encounter for hearing conservation and treatment; Essential hype rtension, benign; H/O diagnostic tests (12/14/2013); Hearing loss; History of compression fra cture of spine (08/17/2015); Insomnia, unspecified; Menopausal and perimenopausal disorder ( 2003); OAB (overactive bladder) (11/28/2016); Obesity, unspecified; Osteoporosis; Other and un specified hyperlipidemia; Other seborrheic keratosis; Prediabetes (12/09/2013); Restless leg syndrome; Rosacea (10/14/2013); Rotator cuff (capsule) sprain; Routine gynecological examina tion; Seborrheic dermatitis (10/14/2013); Sleep apnea; Smoker; and Sprain of ankle, unspecif ied site. has a past surgical history that includes lumbar laminectomy (1991); gastroplasty (1985); Bunionectomy (Right, 1986); Toe Surgery; Endometrial biopsy (2001); Knee arthroscopy (Left, 2005); Total knee arthroplasty (Left, 07/15/13); Dilation and curettage of uterus (06/03/2014) ; and Cholecystectomy (1986). No Known Allergies Current Outpatient Prescriptions Medication Sig Dispense Refill aspirin (ASPIRIN ADULT LOW STRENGTH) 81 MG EC tablet Take 81 mg by mouth Daily. Calcium Carb-Cholecalciferol (CALCIUM 1000 + D) 1000-800 MG-UNIT TABS Take 1 tablet by mouth Daily. Cholecalciferol (VITAMIN D3) 69053 units TABS Take 1 tablet by mouth Once a week. FreeStyle Lancets MISC Test blood sugar twice [...] No current facility-administered medications for this visit. Past Surgical History: Procedure Laterality Date BUNIONECTOMY Right 1987 CHOLECYSTECTOMY 1986 DILATION AND CURETTAGE OF UTERUS 06/03/2014 HYSTEROSCOPY FRACTIONAL D&C; Laterality: N/A; Surgeon: Eleazar Mustafa DO; Locat ion: [facility] MAIN OR ENDOMETRIAL BIOPSY 2002 GASTROPLASTY 1986 KNEE ARTHROSCOPY Left [address] Steven GAGE SURGERY TOTAL KNEE ARTHROPLASTY Left 07/15/13 Family Medical History: family history includes Alzheimer's disease in her mother; Diabetes in her maternal aunt and maternal uncle; Heart attack in her father; Heart disease in her m aternal grandfather, paternal grandmother, and paternal uncle; Heart surgery in her father; Lung cancer in her paternal uncle; No Known Problems in her paternal aunt and paternal aunt; Obesity in her maternal grandmother; Other (see comment) in her maternal grandmother; Strok e in her father, maternal grandfather, and paternal grandfather; Thyroid disease in her sist er. indicated that her mother is . She indicated that her father is . She indic ated that her sister is alive. She indicated that her brother is alive. She indicated that h er maternal grandmother is . She indicated that her maternal grandfather is . She indicated that her paternal grandmother is . She indicated that her paternal g randfather is . She indicated that one of her two maternal aunts is . She in dicated that two of her three maternal uncles are alive. She reported the following about on e of her paternal aunts: STATUS NOT LISTED. She reported the following about another paterna l aunt of unknown status:STATUS NOT LISTED. She indicated that one of her four paternal uncl es is . She reported the following about one of her unknown paternal uncles: STATUS UNKNOWN. 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 Eyes:Denies sudden loss of vision, diplopia, blurred vision. ENT: Denies vertigo, nasal or sinus congestion, bleeding gums or poor dental repair.Bilat eral hearing aids. Card:Denies exertional substernal chest heaviness, leg pain. Resp: Denies cough, wheezing, asthma, hemoptysis GI: Denies nausea, vomiting, abdominal pain, diarrhea, constipation, hematochezia. : Denies dysuria, pyuria, hematuria, frequency, incontinence MS: Chronic back and knee pain. Neuro: Mild right foot drop. Psych: Denies: depression, anxiety, panic. Endocrine: Denies heat or cold intolerance Heme: Denies easy bruising or prolonged bleeding. No history of transfusions. Allergic/Immunologic: Denies seasonal allergies PE: BP 108/70 | Pulse 124 | Resp 16 | Ht 1.651 m (5' 5") | Wt 132.5 kg (292 lb 1.8 oz) | SpO2 97% | BMI 48.61 kg/m Gen: obese and not in acute distress HEENT:Head: Normocephalic, no lesions, without obvious abnormality. Eye: Normal external eye, conjunctiva, lids cornea, ANGIE. Nose: Normal external nose, mucus membranes and septum. Pharynx: Dental Hygiene adequate. Normal buccal mucosa. Mallampati 3. Neck / Thyroid: Supple, no masses, nodes, nodules or enlargement. Pulm: lungs clear to auscultation Card: regular rate and rhythm, S1, S2 normal, no murmur, click, rub or gallop GI: soft and normal bowel sounds : Not examined Rectal: Not Examined Ext: peripheral pulses normal, no pedal edema, no clubbing or cyanosis Skin:no rashes Neuro:Oriented x3. Good historian.Complete neuroexam not done. Psych:age appropriate and casually dressedoriented to time, place and person, mood and aff ect are within normal limits, pt is a good historian; no memory problems were noted Heme: No cervical LN. Assessment: KAMERON: I suspect that the patient has KAMERON although it wasn't severe when we studi ed her previously. I have discussed in detail the pathophysiology of Obstructive Sleep Apnea with the patient. I've discussed that during NREM sleep the skeletal muscles relax and in R EM sleep the skeletal muscles are paralyzed. The muscles that support the back of the throat (the tongue in particular) also relax during NREM sleep and are paralyzed in REM sleep and when this occurs, the back of the throat collapses some. In some patients with a smaller artie k of the throat, this can result in obstruction to the flow of air. This is fundamentally wh at occurs in KAMERON. This can cause repetitive obstruction to the flow of air all night long ca use a person with KAMERON to awaken repeatedly at night to "open" the back of the throat. If air flow is significantly restricted, blood oxygen levels can fall. The combination of the repet itive awakenings at night and low oxygen levels lead to numerous other physiologic abnormali ties which can result in nocturia, nocturnal heartburn, night sweats, morning dry mouth, mor suzie headache, and daytime fatigue/sleepiness. Additionally, KAMERON can cause hypertension and it dramatically increases the risk of heart disease, heart attack, and stroke. It may play a causative role in obesity and AODM. Untreated KAMERON also dramatically increases the risk of f all asleep car accidents. Treatment can help with all of these issues.The various forms of t reatment of KAMERON were discussed with the patient including 1) Conservative therapy which typi isabela includes weight loss, avoidance of sleep deprivation, avoidance of alcohol, avoidance of sedative medications, avoidance of smoking, and positional therapy (non-supine sleeping); 2) Positive Airway Pressure therapy (which is effective in the vast majority of patients bu t compliance can be an issue); 3) Dental Appliance Therapy (which is effective for some anuja ents, typically with mild KAMERON, but compliance is typically good); 4) Expiratory Positive Air way Pressure - which involves passively increasing EPAP pressures applying a "one-way" valve type device (that looks like a "bandaid") over the nares at night which can be effective fo r very mild KAMERON; 5) Surgical intervention - including Phase I surgery (which typically invol ves T&A, UPPP, Genioglossus Advancement, Hyoid Suspension) and Phase II surgery (Bimandibula r-Maxillary Facial Advancement) - the surgical solution to KAMERON is complicated and typically involves several operations; and 6) Hypoglossal Nerve Stimulation Therapy. I am advising PSG be done to reassess and she is in agreement with this. Restless Legs Syndrome: I've discussed Restless Legs Syndrome with the patient. I've also discussed Periodic Limb Movements of Sleep. I've discussed the relationship between the two . I've also discussed that I generally offer treatment symptomatically. I've also discussed an overview of treatment: 1) maintain a ferritin level above 75ug/l; 2) Bedtime leg/arm mas matias; 3) review the need for medications that can worsen RLS/PLMS (such as antidepressants ( except for bupropion) and antihistamines); 4) prescribe medications such as a) dopaminergics , b) benzodiazepine receptor agonists, c) opiates, and/or d) atypical anti-seizure agents. I am going to suggest that a ferritin level be checked today. Also, I would ask Capri Sun to s if perhaps protriptyline and paroxetine could be discontinued and perhaps bupropion be us ed in stead. Plan: Ferritin Level today PSG scheduled for the near future with f/u thereafter. Capri Sun to consider substituting bupropion for protriptyline+paroxetine. Patient Active Problem List Diagnosis Osteopenia HYPERLIPIDEMIA ANXIETY OBESITY VITAMIN D DEFICIENCY COLONIC POLYPS, ADENOMATOUS, HX OF IMPAIRED FASTING GLUCOSE HYPERTENSION Obstructive sleep apnea Restless legs syndrome Routine general medical examination at a health care facility Prediabetes H/O diagnostic tests Aortic root enlargement Postmenopausal vaginal bleeding History of compression fracture of spine OAB (overactive bladder) Osteoporosis Today, 60 minutes was spent face to face with the patient; the majority of time was spent c sherita regarding sleep issues. imon, Reymundo Allen Jr., MD - 09/16/2017 10:00 AM PSTFormatting of this note might be different from the origin al. 09/16/17 0900 Matthew Depression Inventory-II Depression Score 12 - Minimal depression Insomnia Severity Index Insomnia Severity Index 9 Venice Sleepiness Scale Sitting and reading 3 Watching TV 3 Sitting, inactive in a public place (e.g. a theatre or a meeting) 1 As a passenger in a car for an hour without a break 0 Lying down to rest in the afternoon when circumstances permit 1 Sitting and talking to someone 3 Sitting quietly after a lunch without alcohol 0 In a car, while stopped for a few minutes in traffic 0 Total score 11 SF-36v2 Score PF 23.09 RP 21.23 BP 38.21 GH 42.73 VT 34.77 SF 22.25 RE 14.39 MH 32.56 PCS 33.39 MCS 26.02 documented in th is encounter Plan of [...] [place] | | | | | | [id number] | | | | | | | | +--------+---------+ + + + + + +--------+ + + | Name | Type | Priori | Associated Diagnoses | Order Schedule | | | | ty | | | + + +--------+ + + | * [facility] - | Outpatient | Routin | KAMERON (obstructive | Ordered: 09/16/2017 | | AMB Referral | Referral | e | sleep apnea) | | | | | | Restless legs | | | | | | syndrome | | + + +--------+ + + documented as of this encounter Results Ferritin (09/16/2017 12:05 PM PST) + +-------+ + + + | Component | Value | Ref Range | Performed | Pathologist | | | | | At | Signature | + +-------+ + + + | FERRITIN | 23 | 11 - 307 ng/mL | [facility] | | | | | | [facility] [...] | [address] | [place], [place] | [phone] | | [facility] | | [address] | | | - LABORATORY | | [...] blood | + + documented in this encounter
--- OUTSIDE RECORDS SUMMARY | ~2019-10-23 | XMS | Encounter Summary ---
Demographics + + + | Address | [address] | | | [place] [address] | + + + | Home Phone | | + + + | Preferred Language | Unknown | + + + | Marital Status | Single | + + + | Islam Affiliation | 1077 | + + + | Race | Unknown | + + + | Ethnic Group | Unknown | + + + Author + + + | Author | [facility] | | | and Rainerana | + + + | Organization | [facility] | | | and Rainerana [...] [place], [place] | | | | | [address] | | + + + + + | [address]ena [address] | ECON | [place] | | | | | [address] | | + + + + + Care Team Providers + +------+ + | Care Manager City Name | Role | Phone | + [...] + + | 09/07/ | Office | [facility] | Ivy Sun | Osteopenia (Primary | | 2014 | Visit | [facility] [place] | L, [address] | Dx); Compression | | | | [address] | [address] [place] | fracture of thoracic | | | | [place] | [id number] | vertebra, | | | | [address] | | non-traumatic, with | | | | [phone] | | routine healing, | | | [...] 150 UA RBC, External >50 UA Specific [place], External 1.029 UA Leukocyte Esterase, External 500 [...] [place] | | | | | | [id number] | | | | | | | [...]
--- OUTSIDE RECORDS SUMMARY | ~2019-10-23 | XMS | Encounter Summary ---
Demographics + + + | Address | [address] | | | [place] [address] | + + + | Home Phone [...] [facility] | | | and Rainerana | + + + | Organization | [facility] [...] [place], [place] | | | | | [address] | | + + + + + | J[address]ena [address] | ECON | [place] | | | | | [address] | | + + + + + Care Team Providers + +------+ + | Care Clay Stain Mixer Name | Role | Phone | + [...] + + | 12/09/ | Office | [facility] | Ivy Sun | Prediabetes (Primary | | 2013 | Visit | [facility] [place] | [address] | Dx) | | | | [address] | [address] [place] [facility] [place] | | | | | [place] | [address] | | | | | [address] | | | | | | [phone] | | | +--------+---------+ + + + [...] NEGATIVE NEGATIVE KETONES UA NEGATIVE NEGATIVE Specific [place] <=1.005 1.001 - 1.030 BLOOD UA TRACE-INTACT [...] Sooner prn. This note was dictated using Amiare voice recognition software. Every attempt was made [...] [place] | | | | | | [id number] | | | | | | | [...]
--- OUTSIDE RECORDS SUMMARY | ~2019-10-23 | XMS | Encounter Summary ---
Demographics + + + | Address | [address] | | | [place] [address] | + + + | Home Phone | | + + + | Preferred Language | Unknown | + + + | Marital Status | Single | + + + | Advent Affiliation | [phone] | + + + | Race | Unknown | + + + | Ethnic Group | Unknown | + + + Author + + + | Author | [facility] | | | and Rainerana | + + + | Organization | [facility] | | | and [place] | + + + | Address | Unknown | + + + | Phone | Unavailable | + + + Support + + + + + | Name | Relationship | Address | Phone | + + + + + | Aleks Noguera | BRYANT | [address] | | | | | [place], [place] | | | | | [address] | | + + + + + | Jelena Hill | ECON | [place] | | | | | [address] | | + + + + + Care Team Providers + +------+ + | Care Printer Technician Name | Role | Phone | + +------+ + | Ivy Sun | PCP | | + +------+ + Reason for Visit + + + | Reason | Comments | + + + | Pre-Diabetes | Follow up, last Hemoglobin A1C done on 07/2017. Patient is | | | fasting today for possible blood work, also patient is requesting | | | a Rx for a glucometer. | + + + | Hypertension | follow up. | + + + | Back Pain | patient wants to get/discuss a refill on Robaxin. Patient has | | | seen Dr. Oakes, last appt. with him one year ago. | + + + Encounter Details +--------+---------+ + + + | Date | Type | Department | Care Team | Description | +--------+---------+ + + + | 03/06/ | Office | [facility] | Monika Guerrero, | Type 2 diabetes | | 2018 | Visit | [facility] [place] | DIE MAINTENANCE [address] | mellitus without | | | | [address] | [place] | complication, | | | | [place] | [address] | without long-term | | | | [address] | | current use of | | | | [phone] | | insulin (HCC) | | | | | | (Primary Dx); | | | | | | Vitamin D | | | | | | deficiency; Muscle | | | | | | spasm; Prediabetes | +--------+---------+ + + + Social History [...] + + + | Blood Pressure | 120/80 | 03/06/2018 9:17 AM | | | | | PDT | | + + + + + | Pulse | 108 | 03/06/2018 9:17 AM | | | | | PDT | | + + + + + | Temperature | 36.5 C (97.7 F) | 03/06/2018 9:17 AM | | | | | PDT | | + + + + + | Respiratory Rate | 20 | 03/06/2018 9:17 AM | | | | | PDT | | + + + + + | Oxygen Saturation | 98% | 03/06/2018 9:17 AM | | | | | PDT | | + + + + + | Inhaled Oxygen | - | - | | | Concentration | | | | + + + + + | Weight | 128.6 kg (283 lb 8.2 | 03/06/2018 9:17 AM | | | | oz) | PDT | | + + + + + | Height | 165.1 cm (5' 5") | 03/06/2018 9:17 AM | | | | | PDT | | + + + + + | Body Mass Index | 47.18 | 03/06/2018 9:17 AM | | | | | PDT | | + + + + + documented in this encounter Patient Instructions Patient Instructions Monika Guerrero ARNP - 03/06/2018 9:30 AM PDTI'll ask you to check sugars more often,fasting 3 times per week and then twice per week check 30 min before and 2 hours after the main meal Check your HgA1c and vitamin d before your next appointment documented in this encounter Progress Notes Monika Guerrero ARNP - 03/06/2018 9:30 AM PDT Subjective: Lucie Miller is a 67 y.o. female patient of JUSTYN Babcock. Chief Complaint: F/u diabetes HTN Lipids HPI DIABETES : Control and Compliance Diet: She understands dietary principles and is not following Her diet appropriately. Exercising? No because of knee pain The patient does not participate in regular exercise at present. None She is checking home blood sugars. Home fasting blood sugars average: mid 100s Post Prandial: does not check; needs new meter Any low sugar episodes? no If yes, do you get symptoms with low sugars? No Diabetes parameters No flowsheet data found. Lab Results Component Value Date HBA1C 6.3 (H) 03/06/2018 HBA1C 6.1 (H) 07/30/2017 CRT9LUW 6.2 04/04/2016 CAH0FWZ 5.9 08/19/2015 LDL 104 07/30/2017 MALBCRERATIO 5 07/30/2017 MALBCRE 3.2 04/04/2016 MALB 9.3 04/06/2014 Antidiabetic medications Biguanides Sig metFORMIN (GLUCOPHAGE) 500 mg tablet TAKE ONE TABLET BY MOUTH DAILY WITH BREAKFAST Statins HMG CoA Reductase Inhibitors Sig simvastatin (ZOCOR) 10 mg tablet TAKE ONE TABLET BY MOUTH ONCE NIGHTLY JENIFER inhibitors/ARBs JENIFER Inhibitors Sig lisinopril (PRINIVIL, ZESTRIL) 5 mg tablet Take 1 tablet by mouth Daily. Body mass index is 47.18 kg/m. Wt Readings from Last 3 Encounters: 03/06/18 130.1 kg (286 lb 13.1 oz) 03/06/18 128.6 kg (283 lb 8.2 oz) 01/02/18 130.7 kg (288 lb 2.3 oz) BP: 120/80 Hypertension: Control and Compliance Taking/remembering medications daily? yes Current antihypertensive medications Disp Refills Start End lisinopril (PRINIVIL, ZESTRIL) 5 mg tablet (Taking) 90 tablet 0 02/28/2018 Sig - Route: Take 1 tablet by mouth Daily. - Oral Checking Home Blood Pressures? no If yes, average readings? Exercising? no The patient does not participate in regular exercise at present. None BP: 120/80 BP Readings from Last 3 Encounters: 03/06/18 110/80 03/06/18 120/80 01/02/18 110/80 HYPERLIPIDEMIA: Taking/remembering medication daily? yes Statins HMG CoA Reductase Inhibitors Sig simvastatin (ZOCOR) 10 mg tablet TAKE ONE TABLET BY MOUTH ONCE NIGHTLY Diet: Following Low fat, low carb diet? yes Exercising? no The patient does not participate in regular exercise at present. Lab Results Component Value Date LDL 104 07/30/2017 HPI No Known Allergies Medications: She has a current medication list which includes the following prescription(s): aspirin yamini lt low strength, ot ultra/fasttk cntrl soln, vitamin d3, ferrous sulfate, freestyle lancets, gabapentin, glucose blood vi test strips, lisinopril, metformin, nortriptyline, oxybutynin, paroxetine, ropinirole, simvastatin, tizanidine, UNABLE TO FIND, UNCODED MEDICATION, and UN CODED MEDICATION. Review of Systems Review of Systems Constitutional: Negative. Negative for weight loss. Cardiovascular: Negative for chest pain, palpitations, orthopnea, claudication, leg swellin g and PND. Musculoskeletal: Positive for joint pain (r knee pain). Skin: Negative. All other systems reviewed and are negative. Objective: BP 120/80 | Pulse 108 | Temp 36.5 C (97.7 F) (Temporal) | Resp 20 | Ht 1.651 m (5' 5") | Wt 128.6 kg (283 lb 8.2 oz) | SpO2 98% | ? No | BMI 47.18 kg/m Physical Exam Constitutional: She is oriented to person, place, and time. She appears well-developed and well-nourished. No distress. HENT: Head: Normocephalic and atraumatic. Right Ear: Tympanic membrane, external ear and ear canal normal. No drainage. Tympanic memb maurilio is not injected and not perforated. No middle ear effusion. Left Ear: Tympanic membrane, external ear and ear canal normal. No drainage. Tympanic membr ane is not injected and not perforated. No middle ear effusion. Nose: Nose normal. Mouth/Throat: Oropharynx is clear and moist. No oropharyngeal exudate. Eyes: Conjunctivae and EOM are normal. Pupils are equal, round, and reactive to light. Righ t eye exhibits no discharge. Left eye exhibits no discharge. Neck: Normal range of motion. Neck supple. No tracheal deviation present. No thyromegaly pr esent. Cardiovascular: Normal rate, regular rhythm and normal heart sounds. Exam reveals no lockhart p and no friction rub. No murmur heard. Pulmonary/Chest: Effort normal and breath sounds normal. No accessory muscle usage or strid or. She has no wheezes. She has no rales. Abdominal: Soft. Bowel sounds are normal. She exhibits no mass. There is no tenderness. The re is no rebound and no guarding. Neurological: She is alert and oriented to person, place, and time. Skin: Skin is warm and dry. Capillary refill takes less than 2 seconds. No rash noted. She is not diaphoretic. Psychiatric: She has a normal mood and affect. Her behavior is normal. Nursing note and vitals reviewed. Results for orders placed or performed in visit on 03/06/18 Vitamin D, Deficiency Screen (25-Hydroxy) Result Value Ref Range Vitamin D, 25 Hydroxy 51 30 - 80 ng/mL Hemoglobin A1C Result Value Ref Range Hemoglobin A1c 6.3 (H) 4.3 - 6.0 % Estimated Average Glucose 134 mg/dL Assessment and Plans: 1 HTN Readings are at goal continue on lisinopril 2. Vitamin D deficiency - Vitamin D, Deficiency Screen (25-Hydroxy); Future Continue present dose unless deficient on today's test 3. Muscle spasm zanaflex refills 4. Prediabetes - KIT GLUC METER ONETOUCH ULTRA2 QTY: - Blood Glucose Calibration (OT ULTRA/FASTTK CNTRL SOLN) SOLN; by In Vitro route Daily as n eeded. Dispense: 1 each; Refill: 4 - glucose blood test strips (ONE TOUCH ULTRA TEST) strip; Test fasting 3 times weekly, a nd check 30 min pre and 2 hours post main meal Dispense: 100 each; Refill: 4 Follow diet as closely as possible Walk three times per week, 1-2 blocks or as much as your knee allows Follow up in 3 months and bring blood sugar and BP readings Return if symptoms worsen or fail to improve. This note is dictated using [employer] voice recognition software. This note was dictated but not proofread. It may contain some grammatical errors. documented in this encounter Plan of Treatment +--------+---------+ + + + | Date | Type | Specialty | Care Team | Description | +--------+---------+ + + + | 11/23/ | Office | Family Medicine | Ivy Sun | | | 2019 | Visit | | JUSTYN [facility]ating [address] | | | | | | [place] [address] | | | | | | [phone] | | | | | | | | +--------+---------+ + + + documented as of this encounter Results Vitamin D, Deficiency Screen (25-Hydroxy) (03/06/2018 10:40 AM PDT) + +-------+ + + + | Component | Value | Ref Range | Performed | Pathologist | | | | | At | Signature | + +-------+ + + + | Vitamin D, | 51 | 30 - 80 ng/mL | [facility] | | | 25 Hydroxy | | | [facility] | | [...] [address] | [place] | [phone] | | [facility] | | [address] | | | - LABORATORY | | | | + + + + + documented in this encounter Visit Diagnoses + + | Diagnosis | + + | Type 2 diabetes mellitus without complication, without long-term current use of | | insulin (HCC) - Primary | + + | Vitamin D deficiency Unspecified vitamin D deficiency | + + | Muscle spasm Spasm of muscle | + + | Prediabetes Other abnormal glucose | + + documented in this encounter
--- OUTSIDE RECORDS SUMMARY | ~2019-10-23 | XMS | Encounter Summary ---
Demographics + + + | Address | [address] | | | [place] [address] | + + + | Home Phone [...] + | Author | [facility] | | | and Rainerana | + + + | Organization | [facility] | [...] [place], [place] | | | | | [address] | | + + + + + | [place] | ECON | [place] | | | | | [address] | | + + + + + Care Team Providers + +------+ + | Care Re Examiner Name | Role | Phone | + +------+ + | Ivy Sun | PCP | | + +------+ + Encounter Details +--------+ + + + + | Date | Type | Department | Care Team | Description | +--------+ + + + + | 01/18/ | Abstract | [facility] | Ivy Sun | | | 2013 | | [facility] [place] | L, CONTACT [employer] [facility] [address] | | | | | [address] | [address] [place] | | | | | [place] | [address] | | | | | [address] | | | | | | [phone] | | | +--------+ + + + [...] [place] | | | | | | [address] | | | | | | | | +--------+---------+ + + + documented as of this encounter Procedures + +--------+ + + + | Procedure Name | Priori | Date/Time | Associated Diagnosis | Comments | | | ty | | | | + +--------+ + + + | GLUCOSE TOLERANCE | Routin | 01/16/2014 | | Results for this | | RESULT, 2HR | e | 10:05 AM | | procedure are in the | | (NON-ORD) | | PDT | | results section. | + +--------+ + + + documented in this encounter Results Glucose Tolerance Result, 2Hr (01/16/2014 10:05 AM PDT) + + + + + + | Component | Value | Ref Range | Performed | Pathologist | | | | | At | Signature | + + + + + + | Glucose, | 111 | 70 - 126 mg/dL | | | | Fasting | | | | | + + + + + + | Glucose, | 34 (A)Comment: Critical | 70 - 200 mg/dL | | | | 2hr | was called to and | | | | | | repeated back by adhesion tester | | | | | | DR altaf 01/16/14 | | | | | | [address] | | | | + + + + + + + + | Specimen | + + | Blood specimen | | (specimen) | + + documented in this encounter Visit Diagnoses Not on filedocumented in this encounter"
--- OUTSIDE RECORDS SUMMARY | ~2019-10-23 | XMS | Encounter Summary ---
Demographics + + + | Address | [address] | | | [place] [address] | + + + | Home Phone [...] + | Author | [facility] | | | and Rainerana | + + + | Organization | [facility] | | | [...] [place], [place] | | | | | [address] | | + + + + + | [place] | ECON | [place] | | | | | [address] | | + + + + + Care Team Providers + +------+ + | Care Engineering Assistant Name | Role | Phone | + +------+ + | Ivy Sun | PCP | | + +------+ + Encounter Details +--------+ + + + + | Date | Type | Department | Care Team | Description | +--------+ + + + + | 04/12/ | Abstract | [facility] | Ivy Sun | | | 2015 | | [facility] | L, BIOINFORMATICIAN [address] | | | | | [address] | [address] [place] | | | | | [place] | [address] | | | | | [address] | | | | | | [phone] | | | +--------+ + + + [...] AM PDTReceived most recent Mamm[facility]. documented in this encounter Plan of [...] [place] | | | | | | [address] | | | | | | | [...]
--- OUTSIDE RECORDS SUMMARY | ~2019-10-23 | XMS | Encounter Summary ---
Demographics + + + | Address | [address] | | | [place] [address] | + + + | Home Phone [...] | Author | [facility] | | | and Rainerana | + + + | Organization | [facility] | [...] [place], [place] | | | | | [address] | | + + + + + | Jelena Hill | ECON | [place] | | | | | [address] | | + + + + + Care Team Providers + +------+ + | Care National Account Director Name | Role | Phone | [...] | Specialty | Endocrinology | Diagnoses | [place], | [place] | | | Services | | Osteopenia | Ivy Keating, | CLINIC | | | Required | | | AIR CONDITIONING INSULATION INSTALLER [address] | ENDOCRINOLOGY | | | | | | [address] | [address] | | | | | | [place], | [place] | | | | | | [place] [address] | [place], [place] | | | | | | Phone: | [phone] | | | | | | [phone] | Phone: | | | | | | Fax: | [phone] | | | | | | [phone] | Fax: | | | | | | | [phone] | +--------+ + + + + + Reason for Visit + + + | Reason | Comments | + + + | Hypertension | | + + + Encounter Details +--------+---------+ + + + | Date | Type | Department | Care Team | Description | +--------+---------+ + + + | 11/26/ | Office | [facility] | Ivy Sun | Essential | | 2017 | Visit | [facility] | JUSTYN Keating [address] | hypertension | | | | [address] | [place] | (Primary Dx); | | | | [place] | [address] | Function kidney | | | | [address] | | decreased; OAB | | | | [phone] | | (overactive | | | | | | bladder); | | | | | | Osteopenia; | | | | | | Compression fracture | | | | | | of thoracic | | | | | | vertebra, | | | | | | non-traumatic, with | | | | | | routine healing, | | | | | | subsequent | | | | | | encounter; Acute | | | | | | midline thoracic | | | | | | back pain; Anxiety; | | | | | | Impaired fasting | | | | | | glucose; | | | | | | Hyperlipidemia, | | | | | | unspecified | | | | | | hyperlipidemia type; | | | | | | Restless leg | +--------+---------+ + + + Social History [...] + | Blood Pressure | 110/72 | 11/26/2016 1:03 PM | | | | | PST | | + + + + + | Pulse | 112 | 11/26/2016 1:03 PM | | | | | PST | | + + + + + | Temperature | 36.1 C (97 F) | 11/26/2016 1:03 PM | | | | | PST | | + + + + + | Respiratory Rate | 14 | 11/26/2016 1:03 PM | | | | | PST | | + + + + + | Oxygen Saturation | 98% | 11/26/2016 1:03 PM | | | | | PST | | + + + + + | Inhaled Oxygen | - | - | | | Concentration | | | | + + + + + | Weight | 130.2 kg (287 lb) | 11/26/2016 1:03 PM | | | | | PST | | + + + + + | Height | 170.2 cm (5' 7") | 11/26/2016 1:03 PM | | | | | PST | | + + + + + | Body Mass Index | 44.95 | 11/26/2016 1:03 PM | | | | | PST | | + + + + + documented in this encounter Patient Instructions Patient Instructions Villa Lynn, Wellness Director - 11/26/2016 1:36 PM PSTFormzahraa reveles of this note might be different from the original. Get a Blood pressure machine and start checking your blood pressure 2-3 times a week. If your blood pressure continues to be low, then we may stop the Lisinopril. Referral placed to [facility]. You should hear from them in the next 2 weeks, if you dont hear from them, then call and let us know. Start Detrol LA, 4 mg tab. Take one tab daily. Send me a Formabilio message in 4 weeks, notify ing me how it is working. Empty bladder, every 2 hours. Overactive Bladder Syndrome (OAB) Normally, urine stays in the bladder until a person decides to release it. With OAB, the bl adder muscles contract involuntarily, causing a sudden urge to urinate and even urine leakag e. Your healthcare provider has told you that you have overactive bladder syndrome (OAB). Why OAB occurs is not known. But treatments are available to help control the bladder muscle and manage OAB. Read on to learn more. What is overactive bladder syndrome? OAB causes the bladder muscle to contract (squeeze involuntarily). This causes an intense u rge to urinate, known as urgency. Urgency can occur many times during the day and night. In some cases, accidental urine leakage occurs with the urgency. This is called urge incontinen ce, which is the inability to control the urinary bladder function. There are many types of incontinence, urge incontinence being one of then. A disease that affects the bladder nerves , such as multiple sclerosis, can lead to OAB. Other conditions, such as urinary tract infec tion (UTI) or prostate problems in men, can lead to OAB. But the exact cause of OAB is oft en not known. How is overactive bladder syndrome diagnosed? Your healthcare provider examines you and asks about your symptoms and health history. You may also have one or more of the following: Urine testto take samples of urine and have them checked for problems. Urinary diaryto record how much fluid you take in and urinate out in a3 day period. Bladder ultrasoundto study the bladder as it empties. Ultrasound uses sound waves to c reate detailed images of the inside of the body. Cystoscopyto allow the healthcare provider to look for problems in the urinary tract. The test uses a thin, flexible scope called a cystoscope with a light and camera on the end. The scope is inserted into the urethra (the tube that carries urine out of the body). Urodynamic studies, a battery of tests designed to measure and record many aspects of ur inary bladder function, including pressures, volume, and urine flow. How is overactive bladder syndrome treated? Treatment depends on the cause and severity of your OAB. Treatments may include the followi ng: Changing urination habitsmay be suggested. For instance, your healthcare provider may suggest that you urinate as soon as you feel the urge. You may also need to limit how much f luid you have during the day. Exercising your pelvic musclescan help strengthen muscles used during urination. These exercises are called Kegels. They involve magaly as if you were stopping your urine st ream and tightening your rectum as if trying not to pass gas. Your healthcare provider can h elp you learn how to do Kegels. Biofeedbackto help you learn to control the movement of your bladder muscles. Sensors are placed on your abdomen. They turn signals given off by your muscles into lines on a comp uter screen. Medicationmay be given to relax the bladder muscle. Medication can also help ease blad [place] contractions, which reduces the urge to urinate. Neuromodulationmay be done if medication and behavioral changes don t work. Electric al pulses are sent to the sacral nerves (nerves that affect the pelvic area). These pulses h elp relieve OAB and urge incontinence. Surgeryto make the bladder larger may be done in severe cases. With treatment, OAB can be managed. A condition, such as UTI, that has caused you to have O AB will be treated. Treatment may involve taking medications for months or years. You may al so need to make changes in your daily routine. This may include going to the bathroom more o ften than you think you need to. Or, you may need to cut back on caffeine and alcohol becaus e these can make OAB symptoms worse. Your healthcare provider can tell you more. Call the healthcare provider right away if you have any of the following: Fever of100.4F(38.0 C) or higher No improvement with treatment Trouble urinating because of pain Back or abdominal pain Date Last Reviewed: 07/05/201419990613-9600 [employer]. [address] [place] [address], [place] [address]. All righ ts reserved. This information is not intended as a substitute for professional medical care. Always follow your healthcare professional's instructions. documented in this encounter Progress Notes Ivy Sun ARNP - 11/26/2016 12:48 PM PSTFormatting of this note might be differen t from the original. Lucie Miller is a 66 y.o. female Chief Complaint: Hypertension HPI Hypertension: Control and Compliance: Patient was decreased from her Lisinopril to 5 mg daily. This was d ue to her BP being on the lower end of normal and possibly causing her kidney functions to d ecrease. Medication compliance: good Home Blood Pressures: Not checking due to not having a machine at home Exercise: no. BP: 110/72 mmHg BP Readings from Last 3 Encounters: 11/26/16 110/72 09/05/16 101/70 08/28/16 98/68 Pt denies: No headache, visual symptoms, neurologic problems, syncope No chest pain, palpitations, ROSAS, orthopnea, PND, peripheral edema No side effects from any antihypertensive medications Decreased Kidney Function: Patient was instructed to avoid NSAIDs and repeat her renal function panel. Patient had lab s drawn today and results below. Results for LUCIE MILLER ( ) as of 11/26/2016 13:58 Ref. Range 11/26/2016 12:49 EGFR IF NOT Latest Ref Range: >=60 mL/min/1.73m2 >60 Patient is due for a refill of all of her medications except for her Lisinopril. She continues to have problems with OAB. She has cut out pretty much all caffeine and has n ot noted much difference. When she has to urinate, if she doesn't go immediately, she will f eel like she is going to wet herself. No dysuria, has frequency. This has been going for sev eral months. PREVENTIVE CARE/PRIOR VISITS 1. Any recommendations from Health Maintenance: Hepatitis c screening Preventative Services TOPIC LAST DONE NEXT [...] has been changed since signin Order [facility] Calcium Carb-Cholecalciferol (CALCIUM 1000 + D) 1000-800 MG-UNIT TABS (Taking) Take 1 tab let by mouth Daily. Number of times this order has been changed since signin Order [facility] FreeStyle Lancets MISC (Taking) Test blood sugar twice daily. 790.29 Number of times this order has been changed since signin Order [facility] gabapentin (NEURONTIN) 600 MG tablet (Taking) Take 1 tablet by mouth nightly. glucose blood test strips (FREESTYLE LITE) strip (Taking) Test blood sugar twice daily . 790.29 Number of times this order has been changed since signin Order [facility] lisinopril (PRINIVIL, ZESTRIL) 5 mg tablet (Taking) Take 1 tablet by mouth Daily. metFORMIN (GLUCOPHAGE) 500 mg tablet (Taking) TAKE ONE TABLET BY MOUTH DAILY WITH BREAKFA ST methocarbamol (ROBAXIN) 500 mg tablet (Taking) Take 1 tablet by mouth 4 times daily. nortriptyline (PAMELOR) 10 MG capsule (Taking) TAKE THREE CAPSULES BY MOUTH NIGHTLY PARoxetine (PAXIL) 40 [...] has been changed since signin Order [facility] UNCODED MEDICATION (Taking) Wear at all times while sleeping. 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 Neurological: Negative for dizziness, light-headedness and headaches. Objective: Filed Vitals: 11/26/16 1303 BP: 110/72 Pulse: 112 Temp: 36.1 C (97 F) TempSrc: Temporal Resp: 14 Height: 1.702 m (5' 7") Weight: 130.182 kg (287 lb) SpO2: 98% Physical Exam Constitutional: She [...] reviewed. Results for orders placed or performed during [...] g/dL PHOSPHORUS 3.3 2.5-4.6 mg/dL BUN/CREA 20.7 Assessment: 1. Essential hypertension 2. Function kidney decreased 3. OAB (overactive bladder) tolterodine (DETROL LA) 4 MG 24 hr capsule 4. Osteopenia Endocrinology, External - AMB Referral 5. Compression fracture of thoracic vertebra, non-traumatic, with routine healing, subseque nt encounter gabapentin (NEURONTIN) 600 MG tablet nortriptyline (PAMELOR) 10 MG capsule 6. Acute midline thoracic back pain methocarbamol (ROBAXIN) 500 mg tablet 7. Anxiety PARoxetine (PAXIL) 40 MG tablet 8. Impaired fasting glucose metFORMIN (GLUCOPHAGE) 500 mg tablet 9. Hyperlipidemia, unspecified hyperlipidemia type simvastatin (ZOCOR) 10 mg tablet 10. Restless leg rOPINIRole (REQUIP) 2 MG tablet Plans: 1. Essential hypertension Instructed patient to buy a blood pressure cuff and start checking her blood pressure 2-3 t imes a week. Discussed if her readings continue to be on the low end, we will need to discus s decreasing or stopping her lisinopril. Patient instructed to bring in her blood pressure cuff to next appointment. 2. Function kidney decreased Will wait for results and notify patient of results. Discussed if patients kidney functions continue to be decreased, we may need to keep her on a low dose of Lisinopril to help protect her kidneys. 3. OAB (overactive bladder) Discussed starting a medication to help with patients overactive bladder. Patient instructed to start Detrol LA 4 mg by mouth daily. Patient instructed to send me a Formabilio message in 4 weeks notifying me how she is tolerati ng the medication. Medication risks and benefits were reviewed in detail today with the patient who expresses understanding. Pt will call or return with problems or side effects. - tolterodine (DETROL LA) 4 MG 24 hr capsule; Take 1 capsule by mouth Daily. Dispense: 90 capsule; Refill: 1 4. Osteopenia Referral placed to [facility]. Patient prefers going here rather than [facility] ndocrinology. - Endocrinology, External - AMB Referral 5. Compression fracture of thoracic vertebra, non-traumatic, with routine healing, subseque nt encounter Refill of gabapentin and nortriptyline sent to pharmacy. - gabapentin (NEURONTIN) 600 MG tablet; Take 1 tablet by mouth nightly. Dispense: 90 table t; Refill: 3 - nortriptyline (PAMELOR) 10 MG capsule; TAKE THREE CAPSULES BY MOUTH NIGHTLY Dispense: 27 0 capsule; Refill: 1 6. Acute midline thoracic back pain Refill of robaxin sent to pharmacy. - methocarbamol (ROBAXIN) 500 mg tablet; Take 1 tablet by mouth 4 times daily. Dispense: 1 20 tablet; Refill: 1 7. Anxiety Refill of Paxil sent to pharmacy. - PARoxetine (PAXIL) 40 MG tablet; TAKE ONE TABLET BY MOUTH DAILY Dispense: 90 tablet; Ref ill: 1 8. Impaired fasting glucose Refill of Metformin sent to pharmacy. - metFORMIN (GLUCOPHAGE) 500 mg tablet; TAKE ONE TABLET BY MOUTH DAILY WITH BREAKFAST Disp ense: 90 tablet; Refill: 1 9. Hyperlipidemia, unspecified hyperlipidemia type Refill of simvastatin sent to pharmacy. - simvastatin (ZOCOR) 10 mg tablet; TAKE ONE TABLET BY MOUTH ONCE NIGHTLY Dispense: 90 tab let; Refill: 2 10. Restless leg Refill of requip sent to pharmacy. - rOPINIRole (REQUIP) 2 MG tablet; TAKE ONE TABLET BY MOUTH NIGHTLY Dispense: 90 tablet; R efill: 1 Follow-up: Return in about 3 months (around 02/24/2017) for hyperlipidemia, prediabetes. Care instructions and warning signs were discussed. Medications per orders. Side effects discussed. Labs and investigations per orders. IVilla, Gang Mower Operator, am acting as a scribe on behalf of, and in the presence of JUSTYN Castro. Austin Morris Asst 11/26/16 Ivy Pond ARNP, personally performed the services described in this documentation , as scribed in my presence and it is both accurate and complete. JUSTYN Babcock 0 11/26/16 documented in th is encounter Plan of [...] [place] | | | | | | [address] | | | | | | | | +--------+---------+ + + + + + +--------+ + + | Name | Type | Priori | Associated Diagnoses | Order Schedule | | | | ty | | | + + +--------+ + + | Endocrinology, | Outpatient | Routin | Osteopenia | Ordered: 11/26/2016 | | External - AMB | Referral | e | | | | Referral | | | | | + + +--------+ + + documented as of this encounter Visit Diagnoses + + | Diagnosis | + + | Essential hypertension - Primary Unspecified essential hypertension | + + | Function kidney decreased Unspecified disorder of kidney and ureter | + + | OAB (overactive bladder) Hypertonicity of bladder | + + | Osteopenia Disorder of bone and cartilage, unspecified | + + | Compression fracture of thoracic vertebra, non-traumatic, with routine healing, | | subsequent encounter | + + | Acute midline thoracic back pain | + + | Anxiety Anxiety state, unspecified | + + | Impaired fasting glucose | + + | Hyperlipidemia, unspecified hyperlipidemia type | + + | Restless leg Restless legs syndrome (RLS) | + + documented in this encounter
--- OUTSIDE RECORDS SUMMARY | ~2019-10-23 | XMS | Encounter Summary ---
Demographics + + + | Address | [address] | | | [place] [address] | + + + | Home Phone [...] | [facility] | | | and aRinerana | + + + | Organization | [facility] | | | and [...] [place], [place] | | | | | [address] | | + + + + + | Jelena Hill | ECON | [place] | | | | | [address] | | + + + + + Care Team Providers + +------+ + | Care Special Agent In Charge Name | Role | Phone | + [...] | | Required | | 5th | VASCULAR TECHNOLOGIST SONOGRAPHER [address] | [address] | | | | | metatarsal, | [address] | [address] | | | | | right, | [place], | [place], | | | | | closed, | [place] [address] | [place] | | | | | initial | Phone: | [phone] | | | | | encounter | [phone] | Phone: | | | | | | Fax: | [phone] | | | | | | [phone] | Fax: | | | | | | | [phone] | +--------+ + + + + + Reason for Visit + + + | Reason | Comments | + + + | Referral | [facility] | | (PreAuthorization) | | + + + | Fracture | toe | + + + Encounter Details +--------+ + + + + | Date | Type | Department | Care Team | Description | +--------+ + + + + | 07/08/ | Telephone | [facility] | Ivy Sun | Referral | | 2013 | | MEDICINE [place] | Rishabh, JUSTYN [address] | (PreAuthorization) | | | | [address] | [address]VE [place], [place] | (Rizwan); Fracture | | | | [place], [place] | [address] | (toe) | | | | [address] | | | | | | [phone] | | | +--------+ + + + [...] [place] | | | | | | [id number] | | | | | | | [...]
--- OUTSIDE RECORDS SUMMARY | ~2019-10-23 | XMS | Encounter Summary ---
Demographics + + + | Address | [address] | | | [place] [address] | + + + | Home Phone [...] | Author | [facility] | | | and Rainerana | + + + | Organization | [facility] [...] [place] | | | | | [place], [place] | | | | | [address] | | + + + + + | Jelena Hill | ECON | [place] | | | | | [address] | | + + + + + Care Team Providers + +------+ + | Care Gimp Buttonhole Machine Operator Name | Role | Phone [...] [address] [place] | | | | | [place], [place] | [place] [address] | | | | | [address] | [phone] | | | | | [phone] | | | +--------+ + + + [...] [place] | | | | | | [phone] | | | | | | | | +--------+---------+ + + + documented as of this encounter Visit Diagnoses Not on filedocumented in this encounter"
--- OUTSIDE RECORDS SUMMARY | ~2019-10-23 | XMS | Clinical Summary ---
Demographics + + + | Address | [address] | | | [place] [address] | + + + | Home Phone [...] | [facility] | | | and Rainerana | + + + | Organization | [facility] | | [...] [place], [place] | | | | | [address] | | + + + + + | Jelena Hill | ECON | [place] | | | | | [address] | | + + + + + Care Team Providers + +------+ + | Care Linter Drier Operator Name | Role | Phone | [...] + + + | Overview: Mammogram 10/20/13. Edgeley's. NormalPap smear | | 05/05/14Dexa 04/2013Colonoscopy 05-22-11. [...] +---+ + + + | Overview: REY [id number] | + + + +---+ + [...] | | 2018 | | | L, PRODUCT DEVELOPMENT SCIENTIST | | +--------+--------+ + + + | 08/24/ | Refill | Family Medicine | Ivy Sun | Medication Refill | | 2018 | | | L, PRODUCT DEVELOPMENT SCIENTIST | | +--------+--------+ + + + from [...] [place] | | | | | | [address] | | | | | | | [...] + +--------+ | MEDICARE | MEDICA | [id number] | 05/28/20 | [phone] | | Medica | | | RE | | 17-Pre | 5 | | re | | | PART A | | sent | | | | | | AND B | | | | | | + +--------+ +--------+ + +--------+ | MODA | MODA | [id number] | 10/28/19 | [phone] | [address] | PPO | | | HEALTH | | 14-Pre | 9 | [id number] | | | | | | sent | | [place], | | | | [place] | | | | [place] [address] | | | | [place] | | [...] sean | | | 0 (Home) | [address] | + +--------+ +--------+ + + Advance Directives + + + + + | Type | Date Recorded | Patient | Explanation | | | | Medical Billing Manager | | + + + + + | Power of | | | | | Manager Welding | | | | + + + [...]
--- OUTSIDE RECORDS SUMMARY | ~2019-10-23 | XMS | Encounter Summary ---
Demographics + + + | Address | [address] | | | [place] [address] | + + + | Home Phone [...] + | Author | [facility] | | | and Rainerana | + + + | Organization | [facility] | [...] [place], [place] | | | | | [address] | | + + + + + | Jelena Hill | ECON | [place] | | | | | [address] | | + + + + + Care Team Providers + +------+ + | Care Optical Laboratory Mechanic Name | Role | Phone | + +------+ + | Ivy Sun | PCP | | + +------+ + Encounter Details +--------+ + + + + | Date | Type | Department | Care Team | Description | +--------+ + + + + | 11/03/ | Hospital | [facility] | Eleazar Mustafa | | | 2019 | Encounter | MED CTR OR INTRA OP | DO Liliana [address] | | | | | [address] | [address] [facility] | | | | | [place], [place] | [place] [address] | | | | | [address] | [phone] | | | | | [phone] | | | +--------+ + + + [...] | | | | | | insulin ([facility]), | | | | | | [...] | | | | | | insulin ([facility]), | | | | | | [...] 0 | | | | (VITAMIN D3) [address] | mouth Once a week. | | [...] [place] | | | | | | [address] | | | | | | | [...] | 0.98 | 0.60 - 1.30 | [facility] | | | | | mg/dL | [facility] | | | | | | MEDICAL | | | | | | CENTER - | | | | | | LABORATORY | | + + + + + + | eGFR if not | 57 (L)Comment: | >=60 | [facility] | | | | GLOMERULAR FILTRATION | mL/min/1.73m2 | [facility] | | | [place] | RATE,ESTIMATED | | MEDICAL | | | | mL/min/1.72s3Scux than | | CENTER - | | [...] [address] | [place] | [phone] | | [facility] | | [address] | | | - LABORATORY | | [...] | [facility] | | [address] | | | - BLOOD BANK | [...] ST. | [address] | [place] | [phone] | | [facility] | | [address] | | | - LABORATORY | | [...] | | Negative for dysplasia or malignancy. DD:[facility]:C2NR | | | MICROSCOPIC EXAMINATION: Histologic sections [...] received in formalin, labeled | | | "[place]," and designated as "endometrial curettings," consists of a | | | 2.7 x 2.2 x 0.6 cm aggregate of variegated trevizo-white to red fragments. | | | Entirely submitted in (B1). am:AMB:christopher PERFORMING LABORATORY: | | | The technical component was performed by [facility], [address] | | | [facility] [address] (Route Salesman And Driver: Nadia Medina MD; | | | CLIA# [id number]). Professional interpretation was performed by | | | [facility], [facility], [address] | | | [place] [address] (Route Salesman And Driver: Kody Willingham MD; | | | CLIA# [id number]). Diagnostician: Kody Willingham MD | | | [...]
--- OUTSIDE RECORDS SUMMARY | ~2019-10-23 | XMS | Encounter Summary ---
Demographics + + + | Address | [address] | | | [place] [address] | + + + | Home Phone [...] + | Author | [facility] | | | and Rainerana | + + + | Organization | [facility] | | [...] [place], [place] | | | | | [address] | | + + + + + | Jelena Hill | ECON | [place] | | | | | [address] | | + + + + + Care Team Providers + +------+ + | Care Legal Examiner Name | Role | Phone | [...] + + | 08/25/ | Office | [facility] | Ivy Sun | PERS HX TOBACCO USE | | 2011 | Visit | [facility] | JUSTYN Keating [address] | PRESENTING HAZARDS | | | | [address] | [place], [place] | HEALTH; Needs flu | | | | [place], [place] | [address] | shot; Need for | | | | [address] | | pneumococcal | | | | [phone] | | vaccination; | | | | | | HYPERTENSION, [...] + + + | Blood Pressure | 110/68 | 08/25/2012 10:19 AM | | | | | PDT | | + + + + + | Pulse | 116 | 08/25/2012 10:19 AM | | | | | PDT | | + + + + + | Temperature | - | - | | + + + + + | Respiratory Rate | 16 | 08/25/2012 10:19 AM | | | | | PDT | | + + + + + | Oxygen Saturation | - | - | | + + + + + | Inhaled Oxygen | - | - | | | Concentration | | | | + + + + + | Weight | 121.1 kg (267 lb) | 08/25/2012 10:19 AM | | | | | PDT | | + + + + + | Height | - | - | | + + + + + | Body Mass Index | 41.82 | 08/11/2012 8:10 AM | | | | | PDT | | + + + + + documented in this encounter Patient Instructions Patient Instructions Ivy Zavala ARNP - 08/25/2012 10:50 AM PDTHOW TO QUIT SMO MARILY Smoking is one of the hardest habits to break. About half of all those who have ever smoked have been able to quit, and most of those (about 70%) who still smoke want to quit. Here ar e some of the best ways to stop smoking. KEEP TRYING: It takes most smokers about 8 tries before they are finally able to fully quit. So, the mor e often you try and fail, the better your chance of quitting the next time! So, don't give u p! GO COLD TURKEY: Most ex-smokers quit cold turkey. Trying to cut back gradually doesn't seem to work as well , perhaps because it continues the smoking habit. Also, it is possible to fool yourself by i nhaling more while smoking fewer cigarettes. This results in the same amount of nicotine in your body! GET SUPPORT: Support programs can make an important difference, especially for the heavy smoker. These g roups offer lectures, methods to change your behavior and peer support. Call the [facility] Quitline for more information. 117-XMSD-HBB (760-440-3302). Low-cost or free programs are offered by many hospitals, local chapters of the [place] [employer] (911-769-4789) a nd the [employer] (831-868-4327). Support at home is important too. Non-smokers can help by offering praise and encouragement. If the smoker fails to quit, encourage them to try again! [id number] MEDICINES: For those who can't quit on their own, Nicotine Replacement Therapy (NRT) may make quitting much easier. Certain aids such as the nicotine patch, gum and lozenge are available without a prescription. However, it is best to use these under the guidance of your doctor. The ski n patch provides a steady supply of nicotine to the body. Nicotine gum and lozenge gives tem porary bursts of low levels of nicotine. Both methods take the edge off the craving for ciga rettes. WARNING: If you feel symptoms of nicotine overdose, such as nausea, vomiting, dizzin ess, weakness, or fast heartbeat, stop using these and see your doctor. PRESCRIPTION MEDICINES: After evaluating your smoking patterns and prior attempts at quitting, your doctor may offe r a prescription medicine such as bupropion (Zyban, Wellbutrin), varenicline (Chantix, [place] ix), a niocotine inhaler or nasal spray. Each has its unique advantage and side effects whic h your doctor can review with you. HEALTH BENEFITS OF QUITTING: The benefits of quitting start right away and keep improving the longer you go without smok in minutes: blood pressure and pulse return to normal 8 hours: oxygen levels return to normal 2 days: ability to smell and taste begins to improve as damaged nerves start to regrow 2-3 weeks: circulation and lung function improves 1-9 months: decreased cough, congestion and shortness of breath; less tired 1 year: risk of heart attack decreases by half 5 years: risk of lung cancer decreases by half; risk of stroke becomes the same as a non -smoker For information about how to quit smoking, visit the following links: National Cancer [place] , Clearing the Air, Quit Smoking Today - an online coto klet. http://www.smokefree.gov/pubs/clearing_the_air.pdf Smokefree.gov http://smokefree.gov/ QuitNet http://www.quitnet.com/ 1665-2374 Alec Fine, [address] [place] [address]. All rights reserve d. This information is not intended as a substitute for professional medical care. Always fo llow your healthcare professional's instructions. documented in this encounter Progress Notes Dino Pantoja, JUSTYN Haynes - 08/25/2012 10:36 AM PDTFormatting of this note might be dif ferent from the original. Subjective: Patient ID: Lucie Miller is a 62 y.o. female. HPI Patient's medications, allergies, past medical, surgical, social and family histories were reviewed and updated as appropriate. Here for follow-up of hypertension. Has had several provider visits and has been running in normal range. Taking her medication. Hypertension: Control and Compliance Low Sodium Diet: yes Medication compliance: good Home Blood Pressures: 110-115/60-70. BP: 110/68 mmHg Pt denies: No headache, visual symptoms, neurologic problems, syncope No chest pain, palpitations, ROSAS, orthopnea, PND, peripheral edema No side effects from any antihypertensive medications Recently saw Dr. Wolf. Recommend repeat echo in one year. CMP and lipid done . Reviewed and excellent cholesterol control. cmp normal Would like to discuss smoking cessation. Has never tried any OTC for smoking cessation. Cur rently smokes 1/2 ppd. Has smoked for 15 years. Is interested in trying chantix. Needs flu vaccine and pneumococcal vaccine update today. Review of Systems Constitutional: Negative for fatigue. Respiratory: Negative for cough and shortness of breath. Cardiovascular: Negative for chest pain, palpitations and leg swelling. Musculoskeletal: Negative for myalgias. Psychiatric/Behavioral: Negative for dysphoric mood. The patient is not nervous/anxious. Objective: Physical Exam Nursing note and vitals reviewed. Constitutional: She appears well-developed. No distress. Morbidly obese female HENT: Head: Normocephalic. Mouth/Throat: Oropharynx is clear and moist. Eyes: Conjunctivae are normal. Pupils are equal, round, and reactive to light. Neck: Normal range of motion. Neck supple. No JVD (no carotid bruits) present. No thyromega ly present. Cardiovascular: Normal rate, regular rhythm and normal heart sounds. Pulmonary/Chest: Breath sounds normal. No respiratory distress. Musculoskeletal: She exhibits no edema. Lymphadenopathy: She has no cervical adenopathy. Skin: Skin is warm and dry. Psychiatric: She has a normal mood and affect. Her behavior is normal. Judgment and thought content normal. Assessment: 1. PERS HX TOBACCO USE PRESENTING Orgger varenicline (CHANTIX ABBY) 0.5 MG X 11 & 1 MG X 42 tablet 2. Needs flu shot 3. Need for pneumococcal vaccination 4. HYPERTENSION, CONTROLLED Plan: 1. PERS HX TOBACCO USE PRESENTING Orgger discussed chantix at length and potentia l side-effects vs benefits of medication. Instructed to stop smoking day 8 of taking medicat ion. Discusssed stop smoking strategies at home and at work, written information provided. R addisoneck here in one month. Notify our office of any anxiety or depression symptoms. 2. Needs flu shot Immunization counseling discussed by myself and updated today 3. Need for pneumococcal vaccination 4. Hypertension: controlled. moniter and recheck in September. documented in this encounter Plan of Treatment [...] [place] | | | | | | [address] | | | | | | | | +--------+---------+ + + + documented as of this encounter Visit Diagnoses + + | Diagnosis | + + | PERS HX TOBACCO USE PRESENTING HAZARDS HEALTH Personal history of tobacco use, | | presenting hazards to health | + + | Needs flu shot Need for prophylactic vaccination and inoculation against influenza | + + | Need for pneumococcal vaccination Need for prophylactic vaccination against | | streptococcus pneumoniae (pneumococcus) | + + | HYPERTENSION, CONTROLLED Essential hypertension, benign | + + documented in this encounter"
--- OUTSIDE RECORDS SUMMARY | ~2019-10-23 | XMS | Encounter Summary ---
Demographics + + + | Address | [address] | | | [place] [address] | + + + | Home Phone [...] + + | Author | [facility] | | | and Rainerana | + + + | Organization | [facility] [...] [place], [place] | | | | | [address] | | + + + + + | Jelena Hill | ECON | [place] | | | | | [address] | | + + + + + Care Team Providers + +------+ + | Care Pest Control Specialist Name | Role | Phone | + +------+ + | Ivy Sun | PCP | | + +------+ + Encounter Details +--------+ + + + + | Date | Type | Department | Care Team | Description | +--------+ + + + + | 08/18/ | Hospital | [facility] | Reymundo Guillory | | | 2011 - | Encounter | MED CTR OP INFUSION | MD Ivy [address] | | | | | [address] | [place] [facility] | | | 08/19/ | | [place], [place] | [place] [address] | | | 2011 | | [address] | [phone] | | | | | [phone] | | | +--------+ + + + [...] [place] | | | | | | [address] | | | | | | | | +--------+---------+ + + + documented as of this encounter Visit Diagnoses Not on filedocumented in this encounter"
--- OUTSIDE RECORDS SUMMARY | ~2019-10-23 | XMS | Encounter Summary ---
Demographics + + + | Address | [address] | | | [place] [address] | + + + | Home Phone [...] [place], [place] | | | | | [address] | | + + + + + | Jelena Hill | ECON | [place] | | | | | [address] | | + + + + + Care Team Providers + +------+ + | Care Institutional Commodity Analyst Name | Role | Phone | [...] Description | +--------+--------+ + + + | 02/02/ | [facility] | [facility] | Monika Guerrero, | Medication Refill | | 2019 | | MEDICINE NEEDLES | CONTROL INTEGRATION ENGINEER [address] | | | | | [address] | [place] | | | | | [place] | [address] | | | | | [address] | | | | | | [phone] | | | +--------+--------+ + + + [...] [place] | | | | | | [address] | | | | | | | | +--------+---------+ + + + documented as of this encounter Visit Diagnoses Not on filedocumented in this encounter"
--- OUTSIDE RECORDS SUMMARY | ~2019-10-23 | XMS | Encounter Summary ---
Demographics + + + | Address | [address] | | | [place] [address] | + + + | Home Phone [...] Author | [facility] | | | and Rainerana | + + + | Organization | [facility] | [...] [place], [place] | | | | | [address] | | + + + + + | Jelena Hill | ECON | [place] | | | | | [address] | | + + + + + Care Team Providers + +------+ + | Care Platform Material Handler Manager Name | Role | Phone | [...] | | | | | | | PA | | | | | | | [...] + + | 06/03/ | Hospital | [facility] | Eleazar Mustafa | Hypertension | | 2014 | Encounter | MED CTR OR INTRA OP | Liliana, DO [address] | (Primary Dx) | | | | [address] | [address] [place] | | | | | [place], [place] | [place] [address] | | | | | [address] | [phone] | | | | | [phone] | | | +--------+ + + + [...] This can be controlled with an o [id number] pain reliever. You may have some light [...] than 1 pad an hour). A fever [id number]. Increasing abdominal pain, tenderness, or cramping. Foul-smelling discharge. [id number] [facility], [address] [place] [address], [place] [address]. All rights reserve d. This information is [...] [place] | | | | | | [address] | | | | | | | [...] Performed At | + + + | Johnsno Shetty MD 08/23/2014 18:18 Adult ECG Report | | | Name: Lucie Millre Age: 64 y.o. Gender: female 06/03/14 at | | | 7:39 Narrative Interpretation: Sinus rhythm. Right bundle branch | | | block. Possible lateral infarction age-indeterminate. | | + + + + + | Procedure Note | + + | Johnson Shetty MD - 08/23/2014 6:18 PM PDT Adult ECG Report Name: Lucie Marrufo | | [place] Age: 64 y.o. Gender: female06/03/14 at 7:39 [...] [address] | [place] | [phone] | | [facility] | | [address] | | | - LABORATORY | | | | + + + + + | [address] | [address] | [place], [place] | | | [facility] | | [address] | | | - LABORATORY | | [...] + | [address] | [address] | [place] | [phone] | | [facility] | | [address] | | | - LABORATORY | | | | + + + + + | [facility] | [address] | [place] | | | [facility] | | [address] | | | - LABORATORY | | [...] | | | hrs. If ineffective use Iliamna | | | | | | | [...] | mL/hr | | | CONTINUOUS, Starting [facility] 06/03/14 | | AM PDT | | | | | at 0715, TKO., Pre-op | | | | | | + +---------+ +---+-------+---+ +---+---+ | | | +---+---+ documented in this encounter
--- OUTSIDE RECORDS SUMMARY | ~2019-10-23 | XMS | Encounter Summary ---
Demographics + + + | Address | [address] | | | [place] [address] | + + + | Home Phone [...] | Author | [facility] | | | and Rainerana | + + + | Organization | [facility] | | | and Rainerana [...] [place], [place] | | | | | [address] | | + + + + + | Jelena Hill | ECON | [place] | | | | | [address] | | + + + + + Care Team Providers + +------+ + | Care Media Law Faculty Member Name | Role | Phone [...] | +--------+ + + + + | 04/02/ | Telephone | [facility] | Ivy Sun | Appointment | | 2019 | | MEDICINE [place] | JUSTYN Keating [address] | | | | | [address] | [place] | | | | | [place] | [address] | | | | | [address] | | | | | | [phone] | | | +--------+ + + + [...] [place] | | | | | | [address] | | | | | | | | +--------+---------+ + + + documented as of this encounter Visit Diagnoses Not on filedocumented in this encounter"
--- OUTSIDE RECORDS SUMMARY | ~2019-10-23 | XMS | Encounter Summary ---
Demographics + + + | Address | [address] | | | [place] [address] | + + + | Home Phone [...] + + | Author | [facility] | | | and Rainerana | + + + | Organization | [facility] | [...] [place], [place] | | | | | [address] | | + + + + + | Jelena Hill | ECON | [place] | | | | | [address] | | + + + + + Care Team Providers + +------+ + | Care Bus And Trolley Inspecting Dispatcher Name | Role | Phone | + +------+ + | Ivy Sun | PCP | | + +------+ + Encounter Details +--------+ + + + + | Date | Type | Department | Care Team | Description | +--------+ + + + + | 04/12/ | Hospital | [facility] | Ivy Sun | Postmenopausal | | 2014 | Encounter | MED CTR ULTRASOUND | L, PERFORMING ARTIST [address] | vaginal bleeding | | | | [address] [place] | [address] [place], [place] | | | | | [place], [place] | [address] | | | | | [address] | | | | | | [phone] | Austin Culver | | | | | | Orlin Haynesologist | | +--------+ + + + + [...] | 270 | 1 | 03/16/20 | 09/10/201 | | (PAMELOR) 10 MG | MOUTH [...] [place] | | | | | | [address] | | | | | | | | +--------+---------+ + + + documented as of this encounter Procedures + +--------+ + + + | Procedure Name | Priori | Date/Time | Associated Diagnosis | Comments | | | ty | | | | + +--------+ + + + | US PELVIS W | Routin | 04/12/2014 | Postmenopausal | Results for this | | TRANSVAGINAL | e | 10:22 AM | vaginal bleeding | procedure are in the | | | | PDT | | results section. | + +--------+ + + + documented in this encounter Results US Pelvis W Transvaginal [...] + | MISCELLANEOUS LAB | | | [phone] | + +---------+ + + | MISCELANIOUS LAB | | | [phone] | + +---------+ + + documented in this encounter Visit Diagnoses + + | Diagnosis | + + | Postmenopausal vaginal bleeding Postmenopausal bleeding | + + documented in this encounter"
--- OUTSIDE RECORDS SUMMARY | ~2019-10-23 | XMS | Encounter Summary ---
Demographics + + + | Address | [address] | | | [place] [address] | + + + | Home Phone [...] | Author | [facility] | | | and Rainerana | + + + | Organization | [facility] | | | and [...] [place], [place] | | | | | [address] | | + + + + + | Jelena Hill | ECON | [place] | | | | | [address] | | + + + + + Care Team Providers + +------+ + | Care Shoe Repairer Helper Name | Role | Phone | + [...] + + | 06/30/ | Telephone | [facility] | Ivy Sun | Appointment Question | | 2019 | | MEDICINE [place] | JUSTYN Keating [address] | | | | | [address] | [place], [place] | | | | | [place], [place] | [address] | | | | | [address] | | | | | | [phone] | | | +--------+ + + + [...]
--- OUTSIDE RECORDS SUMMARY | ~2019-10-23 | XMS | Encounter Summary ---
Demographics + + + | Address | [address] | | | [place] [address] | + + + | Home Phone [...] Author | [facility] | | | and Rainerana | + + + | Organization | [facility] | [...] [place], [place] | | | | | [address] | | + + + + + | Jelena Hill | ECON | [place] | | | | | [address] | | + + + + + Care Team Providers + +------+ + | Care Dropper Tank Storage Name | Role | Phone | + +------+ + | Ivy Sun | PCP | | + +------+ + Reason for Visit + + + | Reason | Comments | + + + | Medication Question | | + + + Encounter Details +--------+ + + + + | Date | Type | Department | Care Team | Description | +--------+ + + + + | 01/01/ | Telephone | [facility] | Ivy Sun | Medication Question | | 2016 | | MEDICINE [place] | JUSTYN Keating [address] | | | | | [address] | [place], [place] | | | | | [place], [place] | [address] | | | | | [address] | | | | | | [phone] | | | +--------+ + + + [...] [place] | | | | | | [address] | | | | | | | | +--------+---------+ + + + documented as of this encounter Visit Diagnoses + + | Diagnosis | + + | OAB (overactive bladder) - Primary Hypertonicity of bladder | + + documented in this encounter"
--- OUTSIDE RECORDS SUMMARY | ~2019-10-23 | XMS | Encounter Summary ---
Demographics + + + | Address | [address] | | | [place] [address] | + + + | Home Phone [...] | Author | [facility] | | | and Rainerana | + + + | Organization | [facility] | | | and Rainerana [...] [place], [place] | | | | | [address] | | + + + + + | Jelena Hill | ECON | [place] | | | | | [address] | | + + + + + Care Team Providers + +------+ + | Care Escort Patients Name | Role | Phone | + [...] + + | 08/25/ | Office | [facility] | Hiren Mai PA | KAMERON on CPAP (Primary | | 2011 | Visit | SLEEP DISORDER [address] | [address] | Dx) | | | | [address] [place] | [place] | | | | | [place] [address] | [address] | | | | | [phone] | | | +--------+---------+ + + + [...] + documented in this encounter Progress Notes Hiern Mai PA - 08/25/2012 1:11 PM PDT Subjective: Patient ID: Lucie Miller is a 62 y.o. female. HPI last office visit was: 08/18/2012 date of polysomnography: 07/08/2012 AHI: 13.5 RDI: 21.8 O2%: 88% with 1.2 minutes below 88% Machine type: ResMed S9 with nasal pillows obtained from: [facility] [place] pressure is: 5-14 cm 95%: 10.7 cm [...] go back to [facility] [place] to get a ResMed Quattro FX full face mask. I will follow up again in 1 month, sooner prn. Thirty minutes were spent [id number], with the majority of time spent in [...] [place] | | | | | | [address] | | | | | | | | +--------+---------+ + + + documented as of this encounter Visit Diagnoses + + | Diagnosis | + + | KAMERON on CPAP - Primary Obstructive sleep apnea (adult) (pediatric) | + + documented in this encounter"
--- OUTSIDE RECORDS SUMMARY | ~2019-10-23 | XMS | Encounter Summary ---
Demographics + + + | Address | [address] | | | [place] [address] | + + + | Home Phone [...] Author | [facility] | | | and Rainerana | + + + | Organization | [facility] [...] [place], [place] | | | | | [address] | | + + + + + | Jelena Hill | ECON | [place] | | | | | [address] | | + + + + + Care Team Providers + +------+ + | Care Express Manager Name | Role | Phone | [...] + | 10/03/ | Refill | [facility] | Ivy Sun | Medication Refill | | 2014 | | MEDICINE [place] | Rishabh, JUSTYN [address] | | | | | [address] | [place], [place] | | | | | [place], [place] | [address] | | | | | [address] | | | | | | [phone] | | | +--------+--------+ + + + [...] [place] | | | | | | [address] | | | | | | | | +--------+---------+ + + + documented as of this encounter Visit Diagnoses Not on filedocumented in this encounter"
--- OUTSIDE RECORDS SUMMARY | ~2019-10-23 | XMS | Encounter Summary ---
Demographics + + + | Address | [address] | | | [place] [address] | + + + | Home Phone | | + + + | Preferred Language | Unknown | + + + | Marital Status | Single | + + + | Protestant Affiliation | 1077 | + + + | Race | Unknown | + + + | Ethnic Group | Unknown | + + + Author + + + | Author | [facility] | | | and Rainerana | + + + | Organization | [facility] | | [...] [place], [place] | | | | | [address] | | + + + + + | Jelena Hill | ECON | [place] | | | | | [address] | | + + + + + Care Team Providers + +------+ + | Care Alterations Tailor Name | Role | Phone | + [...] | Lumbar | [place], | [address] | | | | | spondylosis | Francis Andersen MD | [place], | | | | | Procedures | [address] | [place] | | | | | [place] | [place] | [address] | | | | | DX/THER AGNT | [place], [place] | Phone: | | | | | [place] | [address] | [phone] | | | | | F[place]ET [place], | Phone: | Fax: | | | | | LUMBAR/SAC, | [phone] | [phone] | | | | | 1ST LEVEL | Fax: | | | | | | [place] | [phone] | | | | | | [place] [...] + + | 03/20/ | Hospital | [facility] | Blancafabien, | Spondylosis of | | 2017 | Encounter | MED CTR XRAY [address] | [address] | lumbar region | | | | [place] | [facility], | without myelopathy | | | | [place] [address] | [place] [address] | or radiculopathy | | | | [phone] | [phone] | | | | | | | | | | | | [employer], [employer] | | +--------+ + + + [...] [place] | | | | | | [address] | | | | | | | [...] Lumbar Facet Steroid Injections Diagnosis: Lumbar | [facility] | | Spondylosis ICD-10 Code M47.816 Lucie Miller presents to the | [facility] | | fluoroscopy suite for [...] + + | Performing | Address | City[facility]State[facility] | Phone Number | | Organization | | | | + + + + + | [address] | [address] | [place] | [phone] | | [facility] | | [address] | | | - IMAGING | | [...]
--- OUTSIDE RECORDS SUMMARY | ~2019-10-23 | XMS | Encounter Summary ---
Demographics + + + | Address | [address] | | | [place] [address] | + + + | Home Phone [...] | Author | [facility] | | | and Rainerana | + + + | Organization | [facility] | | | and Rainerana [...] [place], [place] | | | | | [address] | | + + + + + | Jelena Hill | ECON | [place] | | | | | [address] | | + + + + + Care Team Providers + +------+ + | Care Antique Repairer Name | Role | Phone | [...] + + | 02/12/ | Office | [facility] | Lorenzo Pryor, | Spondylolisthesis, | | 2016 | Visit | NEUROSURGERY [address] | DO [address] | lumbar region | | | | [address] | [address] [place], [place] | (Primary Dx); Lumbar | | | | [place], [place] | [id number] | stenosis; Chronic | | | | [address] | | midline low back | | | | [phone] | | pain without | | | [...] m the original. Lorenzo Pryor DO [address] [facility], [address] [place] [address] FAX: NEUROSURGERY HISTORY AND PHYSICAL EXAMINATION CHIEF [...] has no apparent deficits with short or computer terminal operator memory. CRANIAL NERVES: II: Acuity is intact. [...] Intrinsics 5 5 Ulnar Intrinsics 5 5 Borematic Machine Operator Strength 5 5 Hip Flexion 5 5 [...] [place] | | | | | | [address] | | | | | | | [...]
--- OUTSIDE RECORDS SUMMARY | ~2019-10-23 | XMS | Encounter Summary ---
Demographics + + + | Address | [address] | | | [place] [address] | + + + | Home Phone [...] | Author | [facility] | | | and Rainerana | + + + | Organization | [facility] | | [...] [place], [place] | | | | | [address] | | + + + + + | Jelena Hill | ECON | [place] | | | | | [address] | | + + + + + Care Team Providers + +------+ + | Care Music Industry Internship Name | Role | Phone | + [...] Required | | loss of left | [address] [facility] | [address] | | | | | ear, | [address] | [address] | | | | | unspecified | [place], | [place], | | | | | hearing loss | [place] [address] | [place] [address] | | | | | type Acute | Phone: | Phone: | | | | | otitis | [phone] | [phone] | | | | | media of | Fax: | Fax: | | | | | left ear | [phone] | [phone] | | | | | with | [...] + + | 03/31/ | Office | [facility] | Ivy Sun | Acute otitis media | | 2019 | Visit | MEDICINE [place] | L, [facility] [address] [facility] | of left ear with | | | | [address] | [address] [place] | perforation (Primary | | | | [place] | [address] | Dx); Hearing loss | | | | [address] | | of left ear, | | | | [phone] | | unspecified hearing | | | [...] call you to schedule an appointment Have [facility] send your records to us and [...] 6.0 (A) 09/30/2018 HBA1C 6.3 (H) 03/06/2018 [id number] 6.2 04/04/2016 [id number] 5.9 08/19/2015 LDL 104 07/30/2017 MALBCRERATIO 5 [...] - 40 16 Ear Pain Seen at [facility] in [place] for left ear pain and perforated TM [...] has been changed since signin Order Audit [place] Blood Glucose Calibration (OT ULTRA/FASTTK CNTRL SOLN) SOLN (Taking) Use to calibrate glu cometer Number of times this order has been changed since signin Order Audit [place] Blood Glucose Monitoring Suppl (ONE TOUCH ULTRA SYSTEM KIT) w/Device KIT (Taking) Use to check blood sugars 3 times weekly. Number of times this order has been changed since signin Order Audit [place] cholecalciferol (CHOLECALCIFEROL) 2000 units TABS (Taking) Take 2,000 Units by mouth Tresa y. ferrous sulfate 325 mg tablet (Taking) TAKE ONE TABLET BY MOUTH TWICE A DAY Number of times this order has been changed since signin Order Audit [place] gabapentin (NEURONTIN) 600 MG tablet (Taking) TAKE ONE TABLET BY MOUTH NIGHTLY Number of times this order has been changed since signin Order Audit [place] glucose blood test strips (ONE TOUCH ULTRA TEST) strip (Taking) Test fasting 3 times w eekly, and check 30 min pre and 2 hours post main meal Number of times this order has been changed since signin Order Audit [place] lisinopril (PRINIVIL, ZESTRIL) 5 mg tablet (Taking) TAKE ONE TABLET BY MOUTH DAILY Number of times this order has been changed since signin Order Audit [place] metFORMIN (GLUCOPHAGE) 500 mg tablet (Taking/Discontinued) TAKE ONE TABLET BY MOUTH DAILY WITH BREAKFAST Number of times this order has been changed since signin Order Audit [place] nortriptyline (PAMELOR) 10 MG capsule (Taking) TAKE 3 CAPSULES BY MOUTH NIGHTLY Number of times this order has been changed since signin Order Audit [place] ONE TOUCH ULTRASOFT LANCETS MISC (Taking) Use to check blood sugars 3 times a week Number of times this order has been changed since signin Order Audit [place] oxybutynin (DITROPAN-XL) 10 MG 24 hr tablet (Taking) Take 1 tablet by mouth Daily. Number of times this order has been changed since signin Order Audit [facility] PARoxetine (PAXIL) 40 MG tablet (Taking) TAKE ONE TABLET BY MOUTH DAILY Number of times this order has been changed since signin Order Audit [place] rOPINIRole (REQUIP) 2 MG tablet (Taking) TAKE ONE TABLET BY MOUTH NIGHTLY Number of times this order has been changed since signin Order Audit [place] simvastatin (ZOCOR) 10 mg tablet (Taking) TAKE ONE TABLET BY MOUTH ONCE NIGHTLY Number of times this order has been changed since signin Order Audit [place] tiZANidine (ZANAFLEX) 2 MG tablet (Taking) TAKE ONE TABLET (2MG) BY MOUTH EVERY 6 TO 8 HO URS NEEDED FOR MUSCLE SPASMS. Number of times this order has been changed since signin Order Audit [place] UNABLE TO FIND (Taking) Med Name: Resmed AirSense 10 autoset CPAP: 13-20cm while sleeping . UNCODED MEDICATION (Taking) Diagnosis: Obstructive Sleep Apnea ICD-9: 327.23 Length of Need: 99 Months Number of times this order has been changed since signin Order Audit [place] UNCODED MEDICATION (Taking) Wear at all times while sleeping. Number of times this order has been changed since signin Order Audit [place] Past Medical History She has a past [...] [place] | | | | | | [address] | | | | | | | [...]
--- OUTSIDE RECORDS SUMMARY | ~2019-10-23 | XMS | Encounter Summary ---
Demographics + + + | Address | [address] | | | [place] [address] | + + + | Home Phone | | + + + | Preferred Language | Unknown | + + + | Marital Status | Single | + + + | Christian Affiliation | [id number] | + + + | Race | Unknown | + + + | Ethnic Group | Unknown | + + + Author + + + | Author | [facility] | | | and Rainerana | + + + | Organization | [facility] | | | and [...] [place], [place] | | | | | [address] | | + + + + + | Jelena Hill | ECON | [place] | | | | | [address] | | + + + + + Care Team Providers + +------+ + | Care Process Validation Engineer Name | Role | Phone | [...] + + | 04/02/ | Telephone | [facility] | Ivy Sun | Appointment | | 2019 | | MEDICINE [place] | JUSTYN [address] | | | | | [address] | [place] | | | | | [place] | [address] | | | | | [address] | | | | | | [phone] | | | +--------+ + + + [...] [place] | | | | | | [id number] | | | | | | | | +--------+---------+ + + + documented as of this encounter Visit Diagnoses Not on filedocumented in this encounter"
--- OUTSIDE RECORDS SUMMARY | ~2019-10-23 | XMS | Encounter Summary ---
Demographics + + + | Address | [address] | | | [place] [address] | + + + | Home Phone [...] | Author | [facility] | | | and Rainerana | + + + | Organization | [facility] [...] [place], [place] | | | | | [address] | | + + + + + | Jelena Hill | ECON | [place] | | | | | [address] | | + + + + + Care Team Providers + +------+ + | Care Oil Heater Operator Name | Role | Phone | [...] Appointment | | 2015 | | MEDICINE [place] | JUSTYN [address] | | | | | [address] | [place] | | | | | [place] | [address] | | | | | [address] | | | | | | [phone] | | | +--------+ + + + [...] [place] | | | | | | [id number] | | | | | | | | +--------+---------+ + + + documented as of this encounter Visit Diagnoses Not on filedocumented in this encounter"
--- OUTSIDE RECORDS SUMMARY | ~2019-10-23 | XMS | Encounter Summary ---
Demographics + + + | Address | [address] | | | [place] [address] | + + + | Home Phone [...] Author | [facility] | | | and Rainerana | + + + | Organization | [facility] | | | [...] [place], [place] | | | | | [address] | | + + + + + | Jelena Hill | ECON | [place] | | | | | [address] | | + + + + + Care Team Providers + +------+ + | Care Trend Investigator Name | Role | Phone | + [...] + | 01/28/ | Refill | [facility] | Ivy Sun | Medication Refill | | 2019 | | MEDICINE [place] | Rishabh, JUSTYN [address] | | | | | [address] | [place] | | | | | [place] | [address] | | | | | [address] | | | | | | [phone] | | | +--------+--------+ + + + [...] [place] | | | | | | [address] | | | | | | | | +--------+---------+ + + + documented as of this encounter Visit Diagnoses Not on filedocumented in this encounter"
--- OUTSIDE RECORDS SUMMARY | ~2019-10-23 | XMS | Encounter Summary ---
Demographics + + + | Address | [address] | | | [place] [address] | + + + | Home Phone [...] | Author | [facility] | | | and Rainerana | + + + | Organization | [facility] | | | and Rainerana | + + + | Address | Unknown | + + + | Phone | Unavailable | + + + Support + + + + + | Name | Relationship | Address | Phone | + + + + + | Aleks Noguear | BRYANT | [address] | | | | | [place], [place] | | | | | [address] | | + + + + + | Jelena Hill | ECON | [place] | | | | | [address] | | + + + + + Care Team Providers + +------+ + | Care Legal Officer Name | Role | Phone | [...] | +--------+ + + + + | 08/02/ | Telephone | [facility] | Ivy Sun | Medication Refill | | 2015 | | MEDICINE [place] | JUSTYN [address] | | | | | [address] | [place] [place], [place] | | | | | [place] | [address] | | | | | [address] | | | | | | [phone] | | | +--------+ + + + [...] [place] | | | | | | [address] | | | | | | | | +--------+---------+ + + + documented as of this encounter Visit Diagnoses + + | Diagnosis | + + | Acute midline thoracic back pain - Primary | + + documented in this encounter"
--- OUTSIDE RECORDS SUMMARY | ~2019-10-23 | XMS | Encounter Summary ---
Demographics + + + | Address | [address] | | | [place] [address] | + + + | Home Phone [...] | Author | [facility] | | | and Rainerana | + + + | Organization | [facility] [...] [place], [place] | | | | | [address] | | + + + + + | Jelena Hill | ECON | [place] | | | | | [address] | | + + + + + Care Team Providers + +------+ + | Care Sales Representative Door To Door Name | Role | Phone | + +------+ + | Ivy Sun | PCP | | + +------+ + Reason for Visit + + + | Reason | Comments | + + + | Pre-Diabetes | 1 month Follow-Up | + + + | Hypertension | | + + + | Hyperlipidemia | | + + + Encounter Details +--------+---------+ + + + | Date | Type | Department | Care Team | Description | +--------+---------+ + + + | 08/28/ | Office | [facility] | Ivy Sun | Prediabetes (Primary | | 2016 | Visit | [facility] [place] | L, JUSTYN [address] | Dx); Essential | | | | [address] | [address] [place] | hypertension; | | | | [place] | [address] | Hyperlipidemia, | | | | [address] | | unspecified | | | | [phone] | | hyperlipidemia type; | | | | | | Function kidney | | | | | | decreased; | | | | | | Tachycardia | +--------+---------+ + + + Social History [...] + + + | Blood Pressure | 98/68 | 08/28/2016 9:40 AM | | | | | PDT | | + + + + + | Pulse | 120 | 08/28/2016 9:40 AM | | | | | PDT | | + + + + + | Temperature | 36.3 C (97.3 F) | 08/28/2016 9:40 AM | | | | | PDT | | + + + + + | Respiratory Rate | 8 | 08/28/2016 9:40 AM | | | | | PDT | | + + + + + | Oxygen Saturation | 95% | 08/28/2016 9:40 AM | | | | | PDT | | + + + + + | Inhaled Oxygen | - | - | | | Concentration | | | | + + + + + | Weight | 129.4 kg (285 lb 4.8 | 08/28/2016 9:40 AM | | | | oz) | PDT | | + + + + + | Height | 170.2 cm (5' 7") | 08/28/2016 9:40 AM | | | | | PDT | | + + + + + | Body Mass Index | 44.68 | 08/28/2016 9:40 AM | | | | | PDT | | + + + + + documented in this encounter Patient Instructions Patient Instructions Ronaldo Pool RN - 08/28/2016 10:02 AM PDTPlease avoid NSAIDS. Decrease Lisinopril to 5 mg Daily. May take half tablet of current 10 mg tablet. Lisinopril 5 mg sent to pharmacy. Monitor Blood Pressure and Follow-Up in 6 week. Please go to lab and get CBC, TSH, T4 and B12 completed. Prior to next appointment in 6 weeks please go to lab to have a Renal Function test complet ed. Please start counting your carbohydrates. 40-60 grams carbs per meal, 15 gram carb with protein for mid morning & mid afternoon snack . All meals and snacks should include a protein. Carb counting MIKEL for smart phone called [employer] will help track your carbs. Including protein with carbohydrates will help your blood sugar stay steady for a longer pe riod of time Having a bedtime snack of 15 gram carb with protein will prevent the liver from dumping sug ar during the night and cause elevated fasting blood sugars. Decrease caffeine intake to no more than 8 ounces per day. documented in this encounter Progress Notes Ivy Sun ARNP - 08/28/2016 9:44 AM PDTFormatting of this note might be differen t from the original. Lucie Miller is a 66 y.o. female Chief Complaint: Pre-Diabetes; Hypertension; and Hyperlipidemia HPI PRE-DIABETES : Control and Compliance Diet: She understands dietary principles and is not following Her diet appropriately. Exercise: no She is checking home blood sugars. Home fasting blood sugars average: twice in a month, ran 80 Post Prandial: not checking On an JENIFER / ARB: yes On a Statin: yes Body mass index is 44.67 kg/(m^2). Wt Readings from Last 3 Encounters: 08/28/16 129.411 kg (285 lb 4.8 oz) 07/24/16 135.172 kg (298 lb) 04/04/16 137.485 kg (303 lb 1.6 oz) BP: 98/68 mmHg Denies/reports: Side effects of Medications Hypoglycemic symptoms: Denies sweats, nausea, confusion, and weakness. Hyperglycemic symptoms: Denies polyuria, polydipsia, and blurred vision. No sensory loss is reported. Self foot exams are being performed. No vision problems No nausea/vomiting/bloating, No lightheadedness/orthostasis No infections, ulcerations, or sore Labs Lab Results Component Value Date HBA1C 6.2* 08/28/2016 HBA1C 5.5 11/10/2014 HBA1C 6.2* 10/14/2013 Lab Results Component Value Date GLUF 111 01/16/2014 Patient stated that all she eats is carbohydrates. HYPERLIPIDEMIA: Patient is compliant with medications. Diet: Low fat, low carb dietary compliance: no Denies side effects of medications. Denies Myalgias, abdominal pain, jaundice, constipatio n. No evidence of medication toxicity Denies chest pain, shortness of breath Additional measures started by the patient to reduce lipids include: aerobic exercise : no weight reduction: 18 lbs Lab Results Component Value Date LDL 90 08/28/2016 Hypertension: Control and Compliance Medication compliance: good Home Blood Pressures: Not checking Exercise: no BP: 98/68 mmHg BP Readings from Last 3 Encounters: 08/28/16 98/68 07/24/16 110/74 04/04/16 106/82 Pt denies: No headache, visual symptoms, neurologic problems, syncope No chest pain, palpitations, ROSAS, orthopnea, PND, peripheral edema No side effects from any antihypertensive medications Kidney function Patient hasn't taken ibuprofen for 10 days. Results for LUCIE MILLER ( ) as of 08/28/2016 09:29 Ref. Range 08/28/2016 08:29 EGFR IF NOT Latest Ref Range: >=60 mL/min/1.73m2 53 (L) Patient has a history of tachycardia which has been last evaluated by her consulting intern 11/11. Patient stated that she drinks 44 ounces of Diet Mountain Dew daily. PREVENTIVE CARE/PRIOR VISITS 1. Any recommendations from Health Maintenance: none Preventative Services TOPIC LAST DONE NEXT DUE Influenza Imm (Yearly) 07/24/2016 Colon Cancer Screening (Colonoscopy Every 10 Years 50-75) 05/20/2011 05/20/2021 Breast Cancer Screening (Mamm Q2 Years 50-74) 04/10/2016 04/10/2018 Cervical Cancer Screening (Pap Every 3 Years 21-65 ) 06/01/2015 06/01/2018 Dtap/Tdap/Td Imm 07/24/2016 07/24/2026 Zostavax Imm 2012 2. Any immunizations necessary: none Immunization History [...] has been changed since signin Order [facility] Calcium Carb-Cholecalciferol (CALCIUM 1000 + D) 1000-800 MG-UNIT TABS (Taking) Take 1 tab let by mouth Daily. Number of times this order has been changed since signin Order [facility] FreeStyle Lancets MISC (Taking) Test blood sugar twice daily. 790.29 Number of times this order has been changed since signin Order [facility] gabapentin (NEURONTIN) 600 MG tablet (Taking) Take 1 tablet by mouth nightly. glucose blood test strips (FREESTYLE LITE) strip (Taking) Test blood sugar twice daily . 790.29 Number of times this order has been changed since signin Order [facility] lidocaine (LIDODERM) 5% patch (Taking) lisinopril (PRINIVIL, ZESTRIL) 10 mg tablet (Taking) TAKE ONE TABLET BY MOUTH EVERY MORNI NG metFORMIN (GLUCOPHAGE) 500 mg tablet (Taking) TAKE ONE TABLET BY MOUTH DAILY WITH BREAKFA ST nortriptyline (PAMELOR) 10 MG capsule (Taking) TAKE [...] has been changed since signin Order [facility] UNCODED MEDICATION (Taking) Diagnosis: Obstructive Sleep Apnea ICD-9: 327.23 Length of Need: 99 Months Number of times this order has been changed since signin Order [facility] UNCODED MEDICATION (Taking) Wear at all times while sleeping. Number of times this order has been changed since signin Order [facility] Past Medical History She has a past [...] other Review of Systems Constitutional: Negative for fever and chills. Respiratory: Negative for chest tightness and shortness of breath. Cardiovascular: Negative for chest pain and palpitations. Gastrointestinal: Negative for nausea. Endocrine: Negative for polydipsia and polyuria. Genitourinary: Positive for frequency. Musculoskeletal: Positive for back pain. Right Knee Pain Neurological: Negative for dizziness and headaches. Objective: Filed Vitals: 08/28/16 0940 BP: 98/68 Pulse: 120 Temp: 36.3 C (97.3 F) TempSrc: Temporal Resp: 8 Height: 1.702 m (5' 7") Weight: 129.411 kg (285 lb 4.8 oz) SpO2: 95% Physical Exam Constitutional: She is oriented to person, place, and time. She appears well-developed. No distress. Morbidly Obese HENT: Head: Normocephalic and atraumatic. Eyes: [...] or performed during the hospital encounter of 08/28/16 Lipid Panel Result Value Ref Range Triglycerides 87 35-160 mg/dL CHOLESTEROL 170 150-200 mg/dL HDL 63 28-83 mg/dL Chol/HDL Ratio 2.7 LDL, Calculated 90 <=130 mg/dL Comprehensive Metabolic Panel Result Value Ref Range NA 140 136-149 mmol/L K 3.9 3.5-5.1 mmol/L CL 104 98-109 mmol/L CO2 27 24-31 mmol/L ANION GAP 9 3-16 mmol/L GLUCOSE 122 (H) 70-109 mg/dL BUN 17 7-18 mg/dL Creatinine, Serum/Plasma 1.04 0.60-1.30 mg/dL eGFR if not 53 (L) >=60 mL/min/1.73m2 CALCIUM 9.4 8.3-10.5 mg/dL ALBUMIN 3.7 3.2-5.0 g/dL BILIRUBIN TOTAL 0.5 0.1-1.5 mg/dL Total protein 7.5 6.0-7.8 g/dL AST 29 10-42 U/L ALT 25 6-45 U/L ALK PHOS 105 40-110 U/L GLOBULIN 3.8 2.1-3.8 g/dL Albumin/Globulin ratio 1.0 0.8-2.0 BUN/CREA 16.3 Hemoglobin A1C Result Value Ref Range Hemoglobin A1c 6.2 (H) 4.3-6.0 % Estimated Average Glucose 131 mg/dL CBC with Differential Result Value Ref Range WBC 8.5 4.0-11.0 K/uL RBC 4.93 3.70-5.20 M/uL Hgb 15.0 11.5-16.0 g/dL Hct 45.6 34.0-47.0 % MCV 92.6 83.0-101.0 fL MCH 30.4 28.0-35.0 pg MCHC 32.8 32.0-36.0 g/dL RDW-CV 14.5 <15.0 % Platelet Count 226 140-440 K/uL MPV 10.3 fL % Neutrophils 56.2 45.0-82.0 % % Lymphocytes 28.3 20.0-45.0 % % Monocytes 9.1 4.0-12.0 % % Eosinophils 5.5 (H) 0.0-5.0 % % Basophils 0.9 0.0-1.0 % Absolute Neutrophils 4.80 1.80-8.50 K/uL Absolute Lymphocytes 2.40 0.60-3.20 K/uL Absolute Monocytes 0.80 0.00-1.00 K/uL Absolute Eosinophils 0.50 (H) 0.00-0.40 K/uL Absolute Basophils 0.10 0.00-0.10 K/uL TSH Result Value Ref Range TSH 2.47 0.34-5.60 uIU/mL T4, Free Result Value Ref Range FT4 1.0 0.6-1.1 ng/dL Assessment: 1. Prediabetes 2. Essential hypertension lisinopril (PRINIVIL, ZESTRIL) 5 mg tablet Renal Function Panel 3. Hyperlipidemia, unspecified hyperlipidemia type 4. Function kidney decreased Renal Function Panel 5. Tachycardia CBC with Differential TSH Vitamin B-12 T4, Free Plans: 1. Pre-diabetes Controlled Reviewed Blood sugars and goals today - Continue with current medications as directed -. Advised home foot exams -. Continue with pre-diabetic diet and exercise program -. Labs and A1c reviewed Patient advised to start counting carbohydrates and patient educated. 2. Essential hypertension Patient's blood pressure on low end in office today. Discussed that low blood pressure may be causing her decreased kidney function. Will decrease dosage of Lisinopril to 5 mg daily. Monitor blood pressure at home. Recheck 6 weeks and labs as well Avoid NSAIDS, keep well hydrated - lisinopril (PRINIVIL, ZESTRIL) 5 mg tablet; Take 1 tablet by mouth Daily. Dispense: 90 t ablet; Refill: 1 - Renal Function Panel; Future 3. Hyperlipidemia, unspecified hyperlipidemia type Controlled -. Take meds as directed, Please inform us of any side effects or problems with your medic ations -. Discussed regular cardiovascular exercise and maintaining healthy wt. -. Avoid high fat/cholesterol diet -. Lipid panel and LFT's reviewed. and f/u labs ordered No change in treatment. 4. Function kidney decreased Discussed with patient that her low blood pressure may be contributing to her decreased GFR . Patient advised to avoid NSAIDS and complete a Renal Function Panel in 6 weeks - Renal Function Panel; Future 5. Tachycardia Patient advised to consume no more than 8 ounces of caffeine daily and to complete labs bel ow today. Will have patient complete the below labs today to ensure there isn't a metabolic reason fo r symptoms. Will notify of results when available. - CBC with Differential; Future - TSH; Future - Vitamin B-12; Future - T4, Free; Future - Follow-up: Return in about 6 weeks (around 10/09/2016) for BP Kidney Function. Sooner if w orsening.. Care instructions and warning signs were discussed. Medications per orders. Side effects discussed. Labs and investigations per orders. IRonaldo RN, am acting as a scribe on behalf of, and in the presence of JUSTYN Dewey. Ronaldo Pool RN 08/28/16 Ivy Pond ARNP, personally performed the services described in this documentation , as scribed in my presence and it is both accurate and complete. JUSTYN Babcock 1 10/28/15 documented in th is encounter Plan of Treatment +--------+---------+ + + + | Date | Type | Specialty | Care Team | Description | +--------+---------+ + + + | 01/27/ | Office | Family Medicine | Ivy Sun | | | 2020 | Visit | | JUSTYN [address] | | | | | | [place] | | | | | | [address] | | | | | | | | +--------+---------+ + + + documented as of this encounter Results Renal Function Panel (11/26/2016 [...] mL/min/1.73m2 | [facility] | | [place] | | | [facility] | | | [...] 3.6 | 3.2 - 5.0 g/dL | [facility] [...] + | [facility] | [address] | [place] | [phone] | | [facility] | | [address] | | | - LABORATORY | | [...] [address] | [place] | [phone] | | [facility] | | [address] | | | - LABORATORY | | [...] | B-12 | <145 | | [facility] | | | | pg/mLINDETERMINATE: | | [...] + | [facility] | [address] | [place] | [phone] | | [facility] | | [address] | | | - LABORATORY | | [...] ST. | [address] | [place], [place] | [phone] | | [facility] | | [address] | | | - LABORATORY | | | | + + + + + CBC with Differential (08/28/2016 8:29 AM PDT) + + + + + + | Component | Value | Ref Range | Performed | Pathologist | | | | | At | Signature | + + + + + + | WBC | 8.5 | 4.0 - 11.0 K/uL | [facility] | | | Basophils | | K/uL | [facility] | | | | [...] [address] | [place] | [phone] | | [facility] | | [address] | | | - LABORATORY | | | | + + + + + documented in this encounter Visit Diagnoses + + | Diagnosis | + + | Prediabetes - Primary Other abnormal glucose | + + | Essential hypertension Unspecified essential hypertension | + + | Hyperlipidemia, unspecified hyperlipidemia type | + + | Function kidney decreased Unspecified disorder of kidney and ureter | + + | Tachycardia Tachycardia, unspecified | + + documented in this encounter
--- OUTSIDE RECORDS SUMMARY | ~2019-10-23 | XMS | Encounter Summary ---
Demographics + + + | Address | [address] | | | [place] [address] | + + + | Home Phone | | + + + | Preferred Language | Unknown | + + + | Marital Status | Single | + + + | Mandaeism Affiliation | [id number] | + + + | Race | Unknown | + + + | Ethnic Group | Unknown | + + + Author + + + | Author | [facility] | | | and Rainerana | + + + | Organization | [facility] | | [...] [place], [place] | | | | | [address] | | + + + + + | Jelena Hill | ECON | [place] | | | | | [address] | | + + + + + Care Team Providers + +------+ + | Care Family Counselor Name | Role | Phone | + [...] [address] [place] | | | | | [place], [place] | [place] [address] | | | | | [address] | [phone] | | | | | [phone] | | | +--------+ + + + [...] [place] | | | | | | [address] | | | | | | | | +--------+---------+ + + + documented as of this encounter Visit Diagnoses Not on filedocumented in this encounter"
--- OUTSIDE RECORDS SUMMARY | ~2019-10-23 | XMS | Encounter Summary ---
Demographics + + + | Address | [address] | | | [place] [address] | + + + | Home Phone [...] Author | [facility] | | | and Rainerana | + + + | Organization | [facility] | | | and [...] [place], [place] | | | | | [address] | | + + + + + | Jelena Hill | ECON | [place] | | | | | [address] | | + + + + + Care Team Providers + +------+ + | Care Stockroom Selector Name | Role | Phone | + [...] | | | | | [address] | [place], [place] | | | | | [place], [place] | [address] | | | | | [address] | | | | | | [phone] | Zackery Taylor | | | | | | MD Nicole [address] | | | | | | [address] [place] | | | | | | [place] [address] | | | | | | | [...] +----+---+ + + | | 1 | [place] | | | | 2 | [address]-degrees [...] +----+---+ + + | | 1 | [place] off | | | | 3 | [...] [address] | | eral | Forearm; [id number] catheter | Kristen Hernandes RN | [place] [...] [place] | | | | | | [address] | | | | | | | [...]
--- OUTSIDE RECORDS SUMMARY | ~2019-10-23 | XMS | Encounter Summary ---
Demographics + + + | Address | [address] | | | [place] [address] | + + + | Home Phone [...] Author | [facility] | | | and Rainerana | + + + | Organization | [facility] | | | and [...] [place], [place] | | | | | [address] | | + + + + + | Jelena Hill | ECON | [place] | | | | | [address] | | + + + + + Care Team Providers + +------+ + | Care Surg Rn Name | Role | Phone | + [...] | | Required | | compression | RESERVATIONS AGENT [address] | [address] | | | | | fracture, | [address] | [address] | | | | | initial | [place], | [place] | | | | | encounter | [place] [address] | [address] Phone: | | | | | ([facility]) | Phone: | [phone] | | | | | | [phone] | Fax: | | | | | | Fax: | [phone] | | | | | | [phone] | | +--------+ + + + + [...] T12 | Ivy L, | [address] | | | | | compression | RESERVATIONS AGENT [address] | [place], | | | | | fracture, | [address] | [place] | | | | | initial | [place], | [address] | | | | | encounter | [place] [address] | Phone: | | | | | (HCC) | Phone: | [phone] | | | | | Procedures | [phone] | Fax: | | | | | MRI Thoracic | Fax: | [phone] | | | | | Spine w wo | [phone] | | | | | | Contrast [...] | | | Required | | | RESERVATIONS AGENT [address] | MEDICAL | | | | | | [address] | [address] | | | | | | [place], | [place] | | | | | | [place] [address] | [place], [place] | | | | | | Phone: | [phone] | | | | | | [phone] | Phone: | | | | | | Fax: | [phone] | | | | | | [phone] | Fax: | | | | | | | [phone] | +--------+ + + + + + Reason for Visit + + + | Reason | Comments | + + + | Back Pain | | + + + Encounter Details +--------+---------+ + + + | Date | Type | Department | Care Team | Description | +--------+---------+ + + + | 07/24/ | Office | [facility] | SunAyadIvy | Osteopenia (Primary | | 2016 | Visit | MEDICINE [facility] | JUSTYN Keating [address] | Dx); T12 compression | | | | [address] | [address] [place] | fracture, initial | | | | [place], [place] | [address] | encounter (HCC); | | | | [address] | | Derangement of right | | | | [phone] | | knee; Decreased | | | [...] encounter Patient Instructions Patient Instructions Villa Lynn, Entry Manager - 07/24/2016 9:58 AM PDTStop fosa [...] seen Jul 16 in Urgent Care in [place]. A new fracture was found at T12. [...] last visit: ye s, Urgent Care in [place], [place] No Known Allergies Medications: Patient Reported Taking Dosage alendronate (FOSAMAX) 70 mg tablet (Taking/Discontinued) Take 1 tablet by mouth Once a we ek. Number of times this order has been changed since signin Order [facility] [place] aspirin (ASPIRIN ADULT LOW STRENGTH) 81 MG EC tablet (Taking) Take 81 mg by mouth Daily. Number of times this order has been changed since signin Order [facility] [place] Calcium Carb-Cholecalciferol (CALCIUM 1000 + D) 1000-800 MG-UNIT TABS (Taking) Take 1 tab let by mouth Daily. Number of times this order has been changed since signin [facility] [place] FreeStyle Lancets MISC (Taking) Test blood sugar twice daily. 790.29 Number of times this order has been changed since signin Order [facility] [place] gabapentin (NEURONTIN) 600 MG tablet (Taking) Take 1 tablet by mouth nightly. glucose blood test strips (FREESTYLE LITE) strip (Taking) Test blood sugar twice daily . 790.29 Number of times this order has been changed since signin [facility] [place] lisinopril (PRINIVIL, ZESTRIL) 10 mg tablet (Taking) [...] has been changed since signin Order [facility] [place] UNCODED MEDICATION (Taking) Diagnosis: Obstructive Sleep Apnea ICD-9: 327.23 Length of Need: 99 Months Number of times this order has been changed since signin Order [facility] [place] UNCODED MEDICATION (Taking) Wear at all times while sleeping. Number of times this order has been changed since signin Order [facility] [place] Past Medical History She has a past [...] Negative UA RBC, External 0 UA Specific [place], External 1.026 UA Leukocyte Esterase, External Negative [...] Endocrinology 2. T12 compression fracture, initial encounter ([facility]) MRI Thoracic Spine w wo Contrast * [facility] Neurosurgery - AMB Referral 3. Derangement of right knee XR Knee Right 3 Vw 4. Decreased GFR Renal Function Panel 5. Need for Tdap vaccination Tdap vaccine greater than or equal to 7yo IM [63251] 6. Need for influenza vaccination Quadrivalent Flu vac greater than or equal to 3YO preser vative free IM [97201] Plans: 1. Osteopenia No improvement of osteopenia after five years of fosamax. D/c fosamax. - Ambulatory referral to Endocrinology 2. T12 compression fracture, initial encounter ([facility]) - MRI Thoracic Spine w wo Contrast; Future - * [facility] [place] [facility] - AMB Referral 3. Derangement of right knee - XR Knee Right 3 Vw; Future 4. Decreased GFR - Renal Function Panel; Future 5. Need for Tdap vaccination - Tdap vaccine greater than or equal to 7yo IM [59575] 6. Need for influenza vaccination - Quadrivalent Flu vac greater than or equal to 3YO preservative free IM [93100] Follow-up: Return for next 30 minute available for DM, HTN. Lipid. Care instructions and warning signs were discussed. Medications per orders. Side effects discussed. Labs and investigations per orders. Norbert Lopes, SHAVON Student, [facility] illa Lynn Medi cal Screed Person - 07/24/2016 3:21 PM PDTAfter obtaining informed [...] 06/28 07/13 and had xrays done at [facility]. patient was given robaxin 500 mg PO [...] has been changed since signin Order [facility] [place] aspirin (ASPIRIN ADULT LOW STRENGTH) 81 MG EC tablet (Taking) Take 81 mg by mouth Daily. Number of times this order has been changed since signin Order [facility] [place] Calcium Carb-Cholecalciferol (CALCIUM 1000 + D) 1000-800 MG-UNIT TABS (Taking) Take 1 tab let by mouth Daily. Number of times this order has been changed since signin Order [facility] [place] FreeStyle Lancets MISC (Taking) Test blood sugar twice daily. 790.29 Number of times this order has been changed since signin Order [facility] [place] gabapentin (NEURONTIN) 600 MG tablet (Taking) Take 1 tablet by mouth nightly. glucose blood test strips (FREESTYLE LITE) strip (Taking) Test blood sugar twice daily . 790.29 Number of times this order has been changed since signin Order [facility] [place] lisinopril (PRINIVIL, ZESTRIL) 10 mg tablet (Taking) [...] has been changed since signin Order [facility] [place] UNCODED MEDICATION (Taking) Diagnosis: Obstructive Sleep Apnea ICD-9: 327.23 Length of Need: 99 Months Number of times this order has been changed since signin Order [facility] [place] UNCODED MEDICATION (Taking) Wear at all times while sleeping. Number of times this order has been changed since signin Order [facility] [place] Past Medical History She has a past [...] Negative UA RBC, External 0 UA Specific [place], External 1.026 UA Leukocyte Esterase, External Negative [...] Endocrinology 2. T12 compression fracture, initial encounter ([facility]) MRI Thoracic Spine w wo Contrast * [facility] [place] [facility] - AMB Referral 3. Derangement of right knee XR Knee Right 3 Vw 4. Decreased GFR Renal Function Panel 5. Need for Tdap vaccination Tdap vaccine greater than or equal to 7yo IM [99597] 6. Need for influenza vaccination Quadrivalent Flu vac greater than or equal to 3YO preser vative free IM [65529] Plans: 1. Osteopenia Discussed sending patient to [...] Endocrinology 2. T12 compression fracture, initial encounter ([facility]) Discussed getting thoracic MRI to follow up [...] greater than or equal to 7yo IM [20615] - Quadrivalent Flu vac greater than or equal to 3YO preservative free IM [73427] Follow-up: Return for next 30 minute available for DM, HTN. Lipid. Care instructions and warning signs were discussed. Medications per orders. Side effects discussed. Labs and investigations per orders. IVilla, Edge Burnisher, am acting as a scribe on behalf of, and in the presence of JUSTYN Castro. Villa Lynn, Edge Burnisher 07/24/16 I, JUSTYN Rodriges, personally performed the [...] narrow the central canal on provided large flzyc-bo-lgqc sagittal | | | images through the [...] from imaging of July 2015 and with ooenhvafdoq56-99% loss of vertebral | | body height. Previously visible marrow edema at thislevel has resolved. There is new | | central compression deformity of the lkvagmnyW80 vertebral endplate, with approximate | | 40% [...] central | | canal on provided large jowfl-em-magnlbevskag images through the region. The cervical | [...] ST. | [address] | [place] | [phone] | | [facility] | | [address] | | | - IMAGING | | [...] [address] | [place] | [phone] | | [facility] | | [address] | | | - IMAGING | | [...] | mL/min/1.73m2 | TRISHA | | | ESTONIAN | | | MEDICAL | | | [...] [address] | [place] | [phone] | | [facility] | | [address] | | | - LABORATORY | | [...] for prophylactic vaccination with combined | | pxdekyirrz-hhwmcij-ckefzvfzr (DTP) vaccine | + + | Need for influenza vaccination Need for prophylactic vaccination and inoculation | | against influenza | + + documented in this encounter"
--- OUTSIDE RECORDS SUMMARY | ~2019-10-23 | XMS | Encounter Summary ---
Demographics + + + | Address | [address] | | | [place] [address] | + + + | Home Phone [...] Author | [facility] | | | and Rainerana | + + + | Organization | [facility] | | | [...] [place], [place] | | | | | [address] | | + + + + + | Jelena Hill | ECON | [place] | | | | | [address] | | + + + + + Care Team Providers + +------+ + | Care Morals Squad Police Officer Name | Role | Phone | [...] [place] | | | | | [place] | [id number] | | | | | [address] | | | | | | [phone] | | | +--------+ + + + [...] [place] | | | | | | [address] | | | | | | | [...] | | | Doppler was perfomed at [facility]. Study: This was a technically adequate | [...] structurally | | | normal. Tricuspid Valve: Tpad-gx-ntbjvsta tricuspid regurgitation | | | present. Tricuspid [...] MV A Jaquan: 0.81 m/s MV Dec Power: 3.38 m/s2 MV DecT: | | | 163.73 ms MV E Jaquan: 0.55 m/s MV E/A Ratio: 0.68 E/E' Sept: | | | 23.91 E' Lat: 0.06 m/s E' Sept: 0.02 m/s RAP: 10 mmHg | | | RV S': 0.05 m/s RVSP: 57.39 mmHg TR maxP.39 mmHg TR | | | Vmax: 3.44 m/s Reconciliation Clerk: Authenticated by: Thad Knight, | | | Report Date/Time: -- [id number] | | + + + + + [...] | | flow Doppler was perfomed at [facility].Study: This was a technically adequate study.Left | [...] | tricuspid valve appears structurally normal.Tricuspid Valve: Ydsh-qv-sbtkplzz tricuspid | | regurgitation present.Tricuspid Valve: The [...] | Index (A-L): 13.48 ml/m2LAAs A2C: 15.12 fv5EDNVP A-L A2C: 39.81 mlLAESV MOD A2C: | | 37.29 mlLALs A2C: 4.87 cmLAAs A4C: 11.65 uo2DPYPA A-L A4C: 24.43 mlLAESV MOD A4C: | | 23.28 mlLALs A4C: 4.71 cmRAAs: 11.93 [id number] A-L: 25.39 mlRAESV MOD: 24.73 | | mlRALs: 4.76 cmTAPSE: 1.46 cmAV Env.Ti: 194.08 msAV maxP.89 mmHgAV meanPG: | | 1.89 mmHgAV Vmax: 0.98 m/Griselda Vmean: 0.63 m/Griselda VTI: 12.40 cmAVA Vmax: 3.37 | | cm2AVA (VTI): 4.23 ki2UAAX Vmax: 0.00 cm2/m2AVAI (VTI): 0.00 cm2/m2LVOT Env.Ti: | | 248.72 msLVOT maxP.84 mmHgLVOT meanP.35 mmHgLVSI Dopp: 22.33 ml/m2LVSV | | Dopp: 52.49 mlLVOT Vmax: 0.84 m/sLVOT Vmean: 0.53 m/sLVOT VTI: 13.26 cmMV A Jaquan: | | 0.81 m/sMV Dec Power: 3.38 m/s2MV DecT: 163.73 msMV E Jaquan: 0.55 m/sMV E/A | | Ratio: 0.68E/E' Sept: 23.91E' Lat: 0.06 m/sE' Sept: 0.02 m/sRAP: 10 mmHgRV S': | | 0.05 m/sRVSP: 57.39 mmHgTR maxP.39 mmHgTR Vmax: 3.44 m/s | | Reconciliation Clerk:Authenticated by: Kamron Banegas Date/Time: -- | | [id number] IMPRESSION: 1. Overall left ventricular systolic function [...] A Jaquan: 0.81 m/s | |MV Dec Power: 3.38 m/s2 | |MV DecT: 163.73 ms | |MV E Jaquan: 0.55 m/s | |MV E/A Ratio: 0.68 | |E/E' Sept: 23.91 | |E' Lat: 0.06 m/s | |E' Sept: 0.02 m/s | |RAP: 10 mmHg | |RV S': 0.05 m/s | |RVSP: 57.39 mmHg | |TR maxP.39 mmHg | |TR Vmax: 3.44 m/s | | | |Reconciliation Clerk: | |Authenticated by: Thad Knight MD | |Report Date/Time: -- [id number] | | | |IMPRESSION: | |1. Overall [...]
--- OUTSIDE RECORDS SUMMARY | ~2019-10-23 | XMS | Encounter Summary ---
Demographics + + + | Address | [address] | | | [place] [address] | + + + | Home Phone [...] Author + + + | Author | [facility] | | | and Rainerana | + + + | Organization | [facility] | [...] [place], [place] | | | | | [address] | | + + + + + | Jelena Hill | ECON | [place] | | | | | [address] | | + + + + + Care Team Providers + +------+ + | Care Molded Grid And Parts Inspector Name | Role | Phone | [...] + | 11/10/ | Office | [facility] | Ivy Sun | HYPERTENSION, | | 2014 | Visit | [facility] | JUSTYN Keating [address] | CONTROLLED (Primary | | | | [address] | [address] [place] | Dx); Abnormal | | | | [place] | [address] | finding on EKG; | | | | [address] | | Hyperlipidemia; | | | | [phone] | | Pre-diabetes; | | | | [...] 11/10/2014 HBA1C 6.2* 10/14/2013 HBA1C 6.2* 10/14/2013 CSW7LTP 6.0 07/06/2014 ODP3AUC 5.8 04/06/2014 LDL 83 05/12/2013 MALBCRE 31.3 04/06/2014 MALB 9.3 04/06/2014 Thyroid level labs reviewed and she is Euthyroid. Started having vaginal bleeding 3 days ago and will be notifying Dr. Bentley. Flu vaccination: needs updated today Would like to get shingles vaccination. Needs rx sent to pharmacy. 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 Confirmation reading sent t [...] shingles vaccine zoster vaccine live, PF, (ZOSTAVAX) 45944 UNT/0.65ML injectio n 8. Aortic root enlargement [...] cariology. She would like to call Dr. Wofl's offi ce to see if she should [...] may cause nausea/vomiting. 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 Medication risks and benefits were [...] pharmacy - zoster vaccine live, PF, (ZOSTAVAX) 24497 UNT/0.65ML injection; Inject 0.65 mLs under th [...]
--- OUTSIDE RECORDS SUMMARY | ~2019-10-23 | XMS | Encounter Summary ---
Demographics + + + | Address | [address] | | | [place] [address] | + + + | Home Phone | | + + + | Preferred Language | Unknown | + + + | Marital Status | Single | + + + | Jewish Affiliation | 1077 | + + + | Race | Unknown | + + + | Ethnic Group | Unknown | + + + Author + + + | Author | [facility] | | | and Rainerana | + + + | Organization | [facility] | | [...] [place], [place] | | | | | [address] | | + + + + + | Jelena Hill | ECON | [place] | | | | | [address] | | + + + + + Care Team Providers + +------+ + | Care Diamond Grader Name | Role | Phone | + [...] + + | 02/09/ | Office | [facility] | Ivy Sun | Essential | | 2014 | Visit | [facility] | L, JUSTYN [address] | hypertension | | | | [address] | [place] [place], [place] | (Primary Dx); | | | | [place], [place] | [address] | Prediabetes; | | | | [address] | | Hyperlipidemia; | | | | [phone] | | Anxious depression; | | | [...] 11/10/2014 HBA1C 6.2* 10/14/2013 HBA1C 6.2* 10/14/2013 JKQ4TAI 6.0 07/06/2014 GJS3NXU 5.8 04/06/2014 LDL 83 05/12/2013 MALBCRE 31.3 [...] per orders. This note is dictated using [employer] voice recognition software. This note was dictated [...]
--- OUTSIDE RECORDS SUMMARY | ~2019-10-23 | XMS | Encounter Summary ---
Demographics + + + | Address | [address] | | | [place] [address] | + + + | Home Phone [...] Author | [facility] | | | and Rainerana | + + + | Organization | [facility] | | | and [place]ainerana | + + + | Address | Unknown | + + + | Phone | Unavailable | + + + Support + + + + + | Name | Relationship | Address | Phone | + + + + + | Alkes Noguera | BRYANT | [address] | | | | | [place], [place] | | | | | [address] | | + + + + + | Jelena Hill | ECON | [place] | | | | | [address] | | + + + + + Care Team Providers + +------+ + | Care Sexual Assault Counselor Name | Role | Phone | [...] | enlargement (HCC) | | | | [place], | [address] [place] | (Primary Dx) | | | | [place] [address] | [place] [address] | | | | | [phone] | [phone] | | | | | | | [...] [place] | | | | | | [address] | | | | | | | [...]
--- OUTSIDE RECORDS SUMMARY | ~2019-10-23 | XMS | Encounter Summary ---
Demographics + + + | Address | [address] | | | [place] [address] | + + + | Home Phone [...] Author | [facility] | | | and Rainerana | + + + | Organization | [facility] [...] [place], [place] | | | | | [address] | | + + + + + | Jelena Hill | ECON | [place], [place] | | | | | [address] | | + + + + + Care Team Providers + +------+ + | Care Instructional Resource Teacher Name | Role | Phone | + +------+ + PCP | Unavailable | + +------+ + Encounter Details +--------+ + + + + | Date | Type | Department | Care Team | Description | +--------+ + + + + | 03/22/ | Hospital | [facility] | Unknown, | | | 1991 | Encounter | MED CTR XRAY [address] | MD Veronica | | | | | [place] | | | | | | [place] [address] | (Fax) | | | | | [phone] | | | +--------+ + + + [...] [place] | | | | | | [address] | | | | | | | | +--------+---------+ + + + documented as of this encounter Visit Diagnoses Not on filedocumented in this encounter"
--- OUTSIDE RECORDS SUMMARY | ~2019-10-23 | XMS | Encounter Summary ---
Demographics + + + | Address | [address] | | | [place] [address] | + + + | Home Phone [...] Author | [facility] | | | and Rainerana | + + + | Organization | [facility] | | [...] [place], [place] | | | | | [address] | | + + + + + | Jelena Hill | ECON | [place] | | | | | [address] | | + + + + + Care Team Providers + +------+ + | Care Health Plan Advisor Name | Role | Phone | + +------+ + | Ivy Sun | PCP | | + +------+ + Reason for Visit + + + | Reason | Comments | + + + | Pruritis | | + + + | Results | | + + + Encounter Details +--------+---------+ + + + | Date | Type | Department | Care Team | Description | +--------+---------+ + + + | 05/12/ | Office | [facility] | Ivy Sun | Larry (Primary | | 2012 | Visit | MEDICINE [place] | JUSTYN Keating [address] | Dx); Itching; Leg | | | | [address] | [address] [place] | cramps | | | | [place] | [address] | | | | | [address] | | | | | | [phone] | | | +--------+---------+ + + + [...] + + + | Blood Pressure | 112/70 | 05/12/2013 1:23 PM | | | | | PDT | | + + + + + | Pulse | 76 | 05/12/2013 1:23 PM | | | | | PDT | | + + + + + | Temperature | 36.1 C (97 F) | 05/12/2013 1:23 PM | | | | | PDT | | + + + + + | Respiratory Rate | 16 | 05/12/2013 1:23 PM | | | | | PDT | | + + + + + | Oxygen Saturation | 96% | 05/12/2013 1:23 PM | | | | | PDT | | + + + + + | Inhaled Oxygen | - | - | | | Concentration | | | | + + + + + | Weight | 117.5 kg (259 lb) | 05/12/2013 1:23 PM | | | | | PDT | | + + + + + | Height | - | - | | + + + + + | Body Mass Index | 40.57 | 05/05/2013 2:25 PM | | | | | PDT | | + + + + + documented in this encounter Patient Instructions Patient Instructions Ivy Sun ARNP - 05/12/2013 2:04 PM PDTThin film of vaselin e For moisturizer on skin twice daily. May use triamcinalone cream for itching. Electronically signed by JUSTYN Butt 05/12/2013 2:08 PM PDT documented in this encounter Progress Notes Ivy Sun ARNP - 05/12/2013 1:47 PM PDTFormatting of this note might be differen t from the original. Subjective: Lucie Miller is a 62 y.o. female patient of Ivy Sun [facility]. Chief Complaint: Pruritis and Results here for follow-up on her recent labs. Needs a recheck of her urine. Was noted to have blood at her physical exam. Is a current sm oker. Cutting out caffiene to see if this will help with urinary urgency. Complains of itching. Scratched right wrist last night in her sleep. Last week scratched he r right lower arm. No rash. No itching during day, not using any lotion. No hx of eczema. Has muscle cramps behind left thigh 2-3 times per week. Lasts 3 minutes. Onset last 6 month s. A CMP done today was normal. She not had any diuretic. Cholesterol was reviewed with her and it is excellent. Will No diagnosis found. No Known Allergies Medications: She has a current medication list which includes the following prescription(s): alendronate , aspirin adult low strength, cholecalciferol, cloderm, lisinopril, paroxetine, simvastatin, UNCODED MEDICATION, UNCODED MEDICATION, and zolpidem. [...] hairline fx (1997); Endometrial biopsy ( 2001); and left knee ARTHROSCOPY (2005). Family History: Her family history includes Alzheimer's [...] items are noted in HPI. Objective: BP 112/70 | Pulse 76 | Temp 36.1 C (97 F) (Temporal) | Resp 16 | Wt 117.482 kg (259 lb) | SpO2 96% | ? No General Appearance: Alert, cooperative, no distress, appears stated age Head: Normocephalic, without obvious abnormality, atraumatic Skin: Skin color, texture, turgor normal, no rashes. Left forarm above wrist dorsal area sc ab present and resolving. Right Wrist some scratches present. No rash or signs of infection . Skin is dry. Neurologic: Nonfocal. Alert and oriented x3 Results for orders placed during the hospital encounter of 05/12/13 COMPREHENSIVE METABOLIC PANEL Component Value Range GLUCOSE 111 (*) 70 - 109 mg/dL CALCIUM 9.0 8.3 - 10.5 mg/dL ALK PHOS 91 40 - 110 IU/L AST 30 10 - 42 IU/L ALT 25 6 - 45 IU/L BILIRUBIN TOTAL 0.7 0.2 - 1.0 mg/dL TOTAL PROTEIN 6.6 6.0 - 7.8 gm/dL ALBUMIN 3.3 [...] Ratio 2.6 HEMOGLOBIN A1C Component Value Range HEMOGLOBIN A1C 5.7 4.3 - 5.8 % Assessment and Plans: Lucie was seen today for pruritis and results. Diagnoses and associated orders for this visit: Hematuria: We will obtain another urine with microscopic to look for blood. I did discuss with her that if she does have more than a normal amount of blood noted in her urine she'll need to see a urologist for cystoscopy. It is concerning to have hematuria with her history of smoking. She will continue cutting out caffeine products see if it helps with her urina ry urgency. Itching: Discussed that her skin is dry and it may be helpful she starts using Vaseline thi n film topically to her skin twice daily. I given her prescription for triamcinolone cream for what she can use up to 3 times a day as needed. She was counseled on steroid cream use and instructed not to use it in her groin, face or use it for longer than 2 weeks about taki ng a break. She'll followup if this does not clear the issue. - triamcinolone (KENALOG) 0.1% cream; Apply topically 3 times daily. Prn itching Leg cramps: I will add a magnesium on her labs are returned today. I'll notify her of thos e results. I discussed with her increasing her fruit and vegetables and calcium intake may help as well. - Magnesium; Future Care instructions and warning signs were discussed. Medications per orders. Side effects discussed. Labs and investigations per orders. Recheck 6 months. Sooner prn. documented in th is encounter Plan of Treatment +--------+---------+ + + + | Date | Type | Specialty | Care Team | Description | +--------+---------+ + + + | 11/23/ | Office | Family Medicine | Ivy Sun | | | 2019 | Visit | | JUSTYN [address] | | | | | | [place] | | | | | | [address] | | | | | | | | +--------+---------+ + + + documented as of this encounter Results Magnesium (05/12/2013 10:17 AM PDT) + +-------+ [...] + | [facility] | [address] | [place], [place] | [phone] | | [facility] | | [address] | | | - LABORATORY | | | | + + + + + | [facility] | [address] | [place], [place] | | | [facility] | | [address] | | | - LABORATORY | | | | + + + + + documented in this encounter Visit Diagnoses + + | Diagnosis | + + | Hematuria - Primary Hematuria, unspecified | + + | Itching Unspecified pruritic disorder | + + | Leg cramps Cramp of limb | + + documented in this encounter"
--- OUTSIDE RECORDS SUMMARY | ~2019-10-23 | XMS | Encounter Summary ---
Demographics + + + | Address | [address] | | | [place] [address] | + + + | Home Phone [...] + + | Author | [facility] | | | and Rainerana | + + + | Organization | [facility] | | [...] [place], [place] | | | | | [address] | | + + + + + | Jelena Hill | ECON | [place] | | | | | [address] | | + + + + + Care Team Providers + +------+ + | Care Landman Name | Role | Phone | + [...] + | 10/27/ | Telephone | [facility] | Ivy Sun | Imaging Only | | 2018 | | MEDICINE [place] | Rishabh, JUSTYN [address] | | | | | [address] | [place] | | | | | [place] | [address] | | | | | [address] | | | | | | [phone] | | | +--------+ + + + [...]
--- OUTSIDE RECORDS SUMMARY | ~2019-10-23 | XMS | Encounter Summary ---
Demographics + + + | Address | [address] | | | [place] [address] | + + + | Home Phone [...] Author | [facility] | | | and Rainerana | + + + | Organization | [facility] [...] [place], [place] | | | | | [address] | | + + + + + | Jelena Hill | ECON | [place], [place] | | | | | [address] | | + + + + + Care Team Providers + +------+ + | Care Lunchroom Aide Name | Role | Phone | [...] + + | 01/07/ | Telephone | [facility] | Ivy Sun | Dizziness; Nausea | | 2017 | | [facility] | JUSTYN Keating [address] | | | | | [address] | [place]VE [place], [place] | | | | | [place], [place] | [address] | | | | | [address] | | | | | | [phone] | | | +--------+ + + + [...]
--- OUTSIDE RECORDS SUMMARY | ~2019-10-23 | XMS | Encounter Summary ---
Demographics + + + | Address | [address] | | | [place] [address] | + + + | Home Phone [...] | [facility] | | | and Rainerana | + + + | Organization | [facility] [...] [place], [place] | | | | | [address] | | + + + + + | Jelena Hill | ECON | [place] | | | | | [address] | | + + + + + Care Team Providers + +------+ + | Care Supervisor Chlorine Liquefaction Name | Role | Phone | + [...] + + | 07/07/ | Office | [facility] | Ivy Sun | Prediabetes (Primary | | 2013 | Visit | MEDICINE [place] | JUSTYN Keating [address] | Dx); Right foot | | | | [address] | [address] [place] | injury, initial | | | | [place] | [address] | encounter; Decreased | | | | [address] | | GFR; Hypertension; | | | | [phone] | | Restless legs | +--------+---------+ + [...] Sooner prn. This note was dictated using [employer] voice recognition software. Every attempt was made [...] [place] | | | | | | [address] | | | | | | | [...] + | MISCELLANEOUS LAB | | | [phone] | + +---------+ + + | MISCELANIOUS LAB | | | [phone] | + +---------+ + + documented in [...]
--- OUTSIDE RECORDS SUMMARY | ~2019-10-23 | XMS | Encounter Summary ---
Demographics + + + | Address | [address] | | | [place] [address] | + + + | Home Phone [...] Author | [facility] | | | and Rainerana | + + + | Organization | [facility] | [...] [place], [place] | | | | | [address] | | + + + + + | Jelena Hill | ECON | [place] | | | | | [address] | | + + + + + Care Team Providers + +------+ + | Care Aquaculture Program Director Name | Role | Phone | [...] + + | 08/28/ | Office | [facility] | Ivy Sun | Prediabetes (Primary | | 2016 | Visit | MEDICINE [place] | L, JUSTYN [address] | Dx); Essential | | | | [address] | [address] [place] | hypertension; | | | | [place] | [address] | Hyperlipidemia, | | | | [address] | | unspecified | | | | [phone] | | hyperlipidemia type; | | | [...] Carb counting MIKEL for smart phone called [employer] will help track your carbs. Including protein [...] which has been last evaluated by her telesales supervisor 11/11. Patient stated that she drinks 44 [...] has been changed since signin Order Audit [place] Calcium Carb-Cholecalciferol (CALCIUM 1000 + D) 1000-800 MG-UNIT TABS (Taking) Take 1 tab let by mouth Daily. Number of times this order has been changed since signin Order Audit [place] FreeStyle Lancets MISC (Taking) Test blood sugar twice daily. 790.29 Number of times this order has been changed since signin Order Audit [place] gabapentin (NEURONTIN) 600 MG tablet (Taking) Take 1 tablet by mouth nightly. glucose blood test strips (FREESTYLE LITE) strip (Taking) Test blood sugar twice daily . 790.29 Number of times this order has been changed since signin Order Audit [place] lidocaine (LIDODERM) 5% patch (Taking) lisinopril (PRINIVIL, [...] has been changed since signin Order Audit [place] UNCODED MEDICATION (Taking) Diagnosis: Obstructive Sleep Apnea ICD-9: 327.23 Length of Need: 99 Months Number of times this order has been changed since signin Order Audit [place] UNCODED MEDICATION (Taking) Wear at all times while sleeping. Number of times this order has been changed since signin Order Audit [place] Past Medical History She has a [...] [place] | | | | | | [address] | | | | | | | [...] mL/min/1.73m2 | [facility] | | | [facility] | | | MEDICAL | | | [...] + | [facility] | [address] | [place] | [phone] | | [facility] | | [address] | | | - LABORATORY | | [...] [address] | [place] | [phone] | | [facility] | | [address] | | | - LABORATORY | | [...] + | [facility] | [address] | [place] | [phone] | | [facility] | | [address] | | | - LABORATORY | | [...] ST. | [address] | [place], [place] | [phone] | | [facility] | | [address] | | | - LABORATORY | | [...] [address] | [place] | [phone] | | [facility] | | [address] | | | - LABORATORY | | [...]
--- OUTSIDE RECORDS SUMMARY | ~2019-10-23 | XMS | Encounter Summary ---
Demographics + + + | Address | [address] | | | [place] [address] | + + + | Home Phone [...] | Author | [facility] | | | and Rainerana | + + + | Organization | [facility] | | | and Rainerana [...] [place], [place] | | | | | [address] | | + + + + + | Jelena Hill | ECON | [place] | | | | | [address] | | + + + + + Care Team Providers + +------+ + | Care Research Geologist Name | Role | Phone | + +------+ + | Ivy Sun | PCP | | + +------+ + Reason for Visit + + + | Reason | Comments | + + + | Medication Refill | | + + + | Other | | + + + Encounter Details +--------+ + + + + | Date | Type | Department | Care Team | Description | +--------+ + + + + | 05/13/ | Telephone | [facility] | Ivy Sun | Medication Refill; | | 2012 | | MEDICINE [place] | Rishabh, JUSTYN [address] | | | | | [address] | [place] | | | | | [place] | [address] | | | | | [address] | | | | | | [phone] | | | +--------+ + + + [...] | | | | | [place] | | | | | | [address] | | | | | | | | +--------+---------+ + + + documented as of this encounter Visit Diagnoses + + | Diagnosis | + + | Hyperlipidemia - Primary Other and unspecified hyperlipidemia | + + | Insomnia Insomnia, unspecified | + + documented in this encounter"
--- OUTSIDE RECORDS SUMMARY | ~2019-10-23 | XMS | Encounter Summary ---
Demographics + + + | Address | [address] | | | [place] [address] | + + + | Home Phone [...] | [facility] | | | and Rainerana | + + + | Organization | [facility] | | [...] [place], [place] | | | | | [address] | | + + + + + | Jelena Hill | ECON | [place] | | | | | [address] | | + + + + + Care Team Providers + +------+ + | Care Control Officer Manager Name | Role | Phone | [...] | (Primary Dx) | | | | [address], | [address] [place] | | | | | [place] [address] | [place] [address] | | | | | [phone] | [phone] | | | | | | | [...] [place] | | | | | | [address] | | | | | | | | +--------+---------+ + + + documented as of this encounter Visit Diagnoses + + | Diagnosis | + + | H/O diagnostic tests - Primary Other specified personal history presenting hazards to | | health | + + documented in this encounter"
--- OUTSIDE RECORDS SUMMARY | ~2019-10-23 | XMS | Encounter Summary ---
Demographics + + + | Address | [address] | | | [place] [address] | + + + | Home Phone | | + + + | Preferred Language | Unknown | + + + | Marital Status | Single | + + + | Nondenominational Affiliation | [id number] | + + + | Race | Unknown | + + + | Ethnic Group | Unknown | + + + Author + + + | Author | [facility] | | | and Rainerana | + + + | Organization | [facility] | | | and [...] [place], [place] | | | | | [address] | | + + + + + | Jelena Hill | ECON | [place] | | | | | [address] | | + + + + + Care Team Providers + +------+ + | Care Diamond Cleaner Name | Role | Phone | + +------+ + | Ivy Sun | PCP | | + +------+ + Encounter Details +--------+ + + + + | Date | Type | Department | Care Team | Description | +--------+ + + + + | 09/24/ | Hospital | [facility] | Calderon Shaw, | Lumbar | | 2016 | Encounter | MED CTR XRAY [address] | PA-C [address] | radiculopathy; Low | | | | [place] | [address] [place] | back pain | | | | [place] [address] | [place] [address] | potentially | | | | [phone] | [phone] | associated with | | | | [...] [place] | | | | | | [address] | | | | | | | [...] [address] | [place] | [phone] | | [facility] | | [address] | | | - IMAGING | | | | + + + + + documented in this encounter Visit Diagnoses + + | Diagnosis | + + | Lumbar radiculopathy Thoracic or lumbosacral neuritis or radiculitis, unspecified | + + | Low back pain potentially associated with spinal stenosis | + + documented in this encounter"
--- OUTSIDE RECORDS SUMMARY | ~2019-10-23 | XMS | Encounter Summary ---
Demographics + + + | Address | [address] | | | [place] [address] | + + + | Home Phone [...] | Author | [facility] | | | and Rainerana | + + + | Organization | [facility] | | | [...] [place], [place] | | | | | [address] | | + + + + + | Jelena Hill | ECON | [place], [place] | | | | | [address] | | + + + + + Care Team Providers + +------+ + | Care Hardware Engineer Name | Role | Phone | + +------+ + | Ivy Sun | PCP | | + +------+ + Reason for Visit +--------+ + | Reason | Comments | +--------+ + | Apnea | | +--------+ + Encounter Details +--------+---------+ + + + | Date | Type | Department | Care Team | Description | +--------+---------+ + + + | 10/03/ | Office | [facility] [place] [facility] | Hiren Mai PA | KAMERON on CPAP (Primary | | 2011 | Visit | SLEEP DISORDER [address] | [address] | Dx) | | | | [address] [place] | [place] | | | | | [place] [address] | [address] | | | | | [phone] | | | +--------+---------+ + + + [...] + | Blood Pressure | 102/70 | 10/03/2012 11:07 AM | | | | | PST | | + + + + + | Pulse | 94 | 10/03/2012 11:07 AM | | | | | PST | | + + + + + | Temperature | - | - | | + + + + + | Respiratory Rate | 16 | 10/03/2012 11:07 AM | | | | | PST | | + + + + + | Oxygen Saturation | - | - | | + + + + + | Inhaled Oxygen | - | - | | | Concentration | | | | + + + + + | Weight | 123.2 kg (271 lb 8 | 10/03/2012 11:07 AM | | | | oz) | PST | | + + + + + | Height | - | - | | + + + + + | Body Mass Index | 42.52 | 08/11/2012 8:10 AM | | | | | PDT | | + + + + + documented in this encounter Progress Notes Hiren Mai PA - 10/03/2012 11:32 AM PST Subjective: Patient ID: Lucie Miller is a 62 y.o. female. HPI last office visit was: 08/25/2012 date of polysomnography: 07/08/2012 AHI: 13.5 RDI: 21.8 O2%: 88% with 1.2 minutes below 88% Machine type: ResMed S9 with full face mask obtained from: [facility] in [place] pressure is: 5-14 cm 95%: 11.6 cm maxium: 13.0 cm CPAP download shows CPAP useage # nights: 11/29 average usage (all nights): 0:48 average usage (nights used): 5:14 Lucie struggled with her CPAP compliance for about three weeks because she was sick. She w as not able to breathe through her nose and was coughing. She has returned to wearing it du ring the last six nights and has done better than she did prior to getting sick. She has be en able to wear it for a longer duration of the night and is sleeping better. She is now using a ResMed Mirage Quattro full face mask. This has been better than her deanne al pillows, but is bothering the bridge of her nose. She feels that she would do better wit h a ResMed Quattro FX. We went through each of the settings on the CPAP, to ensure that there is a good understand ing of how to make changes to temperature, humidity and/or the ramp. She now feels comforta ble making adjustments to the settings, if necessary. This includes the information button to check her amount of time she used her CPAP the previous night. I have discussed the download in detail. This shows that her sleep apnea is not completely controlled, with an AHI of 3.4. She continues to have some problems with leaks. Changing m asks may help this. Review of Systems Objective: Physical Exam Assessment: PROBLEM #1: OBSTRUCTIVE SLEEP APNEA (327.23) This is controlled with CPAP. Her CPAP compliance has improved considerably during the week (she struggled prior to that while she was sick). Plan: She is to continue with CPAP indefinitely. I have recommended that she go back to [facility] [place] to get a ResMed Quattro FX full face mask. I will follow up again in 1 month, sooner prn. Thirty minutes were spent [id number], with the majority of time spent in [...] | | | | [place] | | | | | | [address] | | | | | | | | +--------+---------+ + + + documented as of this encounter Visit Diagnoses + + | Diagnosis | + + | KAMERON on CPAP - Primary Obstructive sleep apnea (adult) (pediatric) | + + documented in this encounter"
--- OUTSIDE RECORDS SUMMARY | ~2019-10-23 | XMS | Encounter Summary ---
Demographics + + + | Address | [address] | | | [place] [address] | + + + | Home Phone [...] | [facility] | | | and Rainerana | + + + | Organization | [facility] [...] [place], [place] | | | | | [address] | | + + + + + | Jelena Hill | ECON | [place] | | | | | [address] | | + + + + + Care Team Providers + +------+ + | Care Book Jacket Cover Machine Operator Name | Role | Phone [...] | | | 2018 | | [facility] | L, MECHANICAL DESIGN ENGINEER [address] | | | | | [address] | [address] [place] | | | | | [place] | [address] | | | | | [address] | | | | | | [phone] | | | +--------+ + + + [...] [place] | | | | | | [address] | | | | | | | [...]
--- OUTSIDE RECORDS SUMMARY | ~2019-10-23 | XMS | Encounter Summary ---
Demographics + + + | Address | [address] | | | [place] [address] | + + + | Home Phone [...] [facility] | | | and Rainerana | + + + | Organization | [facility] | | | and Rainerana [...] [place], [place] | | | | | [address] | | + + + + + | Jelena Hill | ECON | [place] | | | | | [address] | | + + + + + Care Team Providers + +------+ + | Care Casualty Claim Adjuster Name | Role | Phone | + [...] + | 08/24/ | Refill | [facility] | Ivy Sun | Medication Refill | | 2019 | | MEDICINE [place] | Rishabh, JUSTYN [address] | | | | | [address] | [address] [place] | | | | | [place] | [address] | | | | | [address] | | | | | | [phone] | | | +--------+--------+ + + + [...] [place] | | | | | | [address] | | | | | | | | +--------+---------+ + + + documented as of this encounter Visit Diagnoses Not on filedocumented in this encounter"
--- OUTSIDE RECORDS SUMMARY | ~2019-10-23 | XMS | Encounter Summary ---
Demographics + + + | Address | [address] | | | [place] [address] | + + + | Home Phone [...] | [facility] | | | and Rainerana | + + + | Organization | [facility] | | [...] [place], [place] | | | | | [address] | | + + + + + | Jelena Hill | ECON | [place] | | | | | [address] | | + + + + + Care Team Providers + +------+ + | Care Embossed Or Impressed Lettering Painter Name | Role | Phone | + [...] + | 03/06/ | Office | 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 Number of times this order has been changed since signin Order Audit Bradford FreeStyle Lancets MISC (Taking) Test blood sugar twice daily. 790.29 Number of times this order has been changed since signin Order Audit Bradford gabapentin (NEURONTIN) 600 MG tablet (Taking) Take 1 tablet by mouth nightly. glucose blood test strips (FREESTYLE LITE) strip (Taking) Test blood sugar twice daily . 790.29 Number of times this order has been changed since signin Order Audit Bradford lisinopril (PRINIVIL, ZESTRIL) 5 mg tablet (Taking) [...] has been changed since signin Order Audit Bradford UNCODED MEDICATION (Taking) Wear at all times while sleeping. 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 Essential [...] Labs and investigations per orders. Julieta Pond Building Services Technician, am acting as a scribe on behalf of, and in the presence of JUSTYN Jacome. Electronically signed by: Julieta Rogers Building Services Technician 05/10/17 9:59 I, JUSTYN Babcock, personally performed [...] [place] | | | | | | [address] | | | | | | | [...] [address] | [place] | [phone] | | [facility] | | [address] | | | - LABORATORY | | [...] + | [facility] | [address] | [place] | [phone] | | [facility] | | [address] | | | - LABORATORY | | [...] [address] | [place] | [phone] | | [facility] | | [address] | | | - LABORATORY | | [...] [address] | [place] | [phone] | | [facility] | | [address] | | | - LABORATORY | | [...] | 0.82 | 0.60 - 1.30 | [facility] | | | | | mg/dL | [facility] | | | | | | MEDICAL | | | | | | CENTER - | | | | | | LABORATORY | | + + + + + + | eGFR if not | >60Comment: GLOMERULAR | >=60 | [facility] | | | | FILTRATION | mL/min/1.73m2 | [facility] | | | CONGOLESE | RATE,ESTIMATED | | MEDICAL | | | | mL/min/1.26w5Oroy than | | CENTER - | | [...] [address] | [place] | [phone] | | [facility] | | [address] | | | - LABORATORY | | [...] [place] | | | | | | [address] | | | | + + + + + + + + | Specimen | + + | Blood | + + + + + + + | Performing | Address | City/State/Zipcode | Phone Number | | Organization | | | | + + + + + | [facility] | [address] | [place] [address] | [phone] | + + + + + documented [...]
--- OUTSIDE RECORDS SUMMARY | ~2019-10-23 | XMS | Encounter Summary ---
Demographics + + + | Address | [address] | | | [place] [address] | + + + | Home Phone [...] | Author | [facility] | | | and Rainerana | + + + | Organization | [facility] | | | and Rainerana [...] [place], [place] | | | | | [address] | | + + + + + | Jelena Hill | ECON | [place], [place] | | | | | [address] | | + + + + + Care Team Providers + +------+ + | Care General Dentist/Owner Name | Role | Phone | + +------+ + PCP | Unavailable | + +------+ + Encounter Details +--------+ + + + + | Date | Type | Department | Care Team | Description | +--------+ + + + + | 04/04/ | Hospital | [facility] | | | | 1989 - | Encounter | MED CTR GENERIC IP | | | | | | CONV DEPT [address] | | | | 04/06/ | | [place], | | | | 1989 | | [place] [address] | | | | | | [phone] | | | +--------+ + + + [...] [place] | | | | | | [address] | | | | | | | | +--------+---------+ + + + documented as of this encounter Visit Diagnoses Not on filedocumented in this encounter"
--- OUTSIDE RECORDS SUMMARY | ~2019-10-23 | XMS | Encounter Summary ---
Demographics + + + | Address | [address] | | | [place] [address] | + + + | Home Phone [...] | [facility] | | | and Rainerana | + + + | Organization | [facility] | | | [...] [place], [place] | | | | | [address] | | + + + + + | Jelena Hill | ECON | [place] | | | | | [address] | | + + + + + Care Team Providers + +------+ + | Care Transfill Technician Name | Role | Phone | + +------+ + | Ivy Sun | PCP | | + +------+ + Encounter Details +--------+ + + + + | Date | Type | Department | Care Team | Description | +--------+ + + + + | 07/08/ | Hospital | [facility] | Reymundo Guillory | | | 2011 | Encounter | MED CTR SLEEP | MD Ivy [address] | | | | | [place] [address] | [address] [facility] | | | | | [place], [place] | [place] [address] | | | | | [address] | [phone] | | | | | [phone] | | | +--------+ + + + [...] | | 11 | 2 | | 95971 UNITS capsule | mouth once weekly | [...] [place] | | | | | | [address]39[address] | | | | | | | | +--------+---------+ + + + documented as of this encounter Visit Diagnoses Not on filedocumented in this encounter"
--- OUTSIDE RECORDS SUMMARY | ~2019-10-23 | XMS | Encounter Summary ---
Demographics + + + | Address | [address] | | | [place] [address] | + + + | Home Phone [...] | [facility] | | | and Rainerana | + + + | Organization | [facility] | | | and Rainerana [...] [place], [place] | | | | | [address] | | + + + + + | Jelena Hill | ECON | [place], [place] | | | | | [address] | | + + + + + Care Team Providers + +------+ + | Care Hospitality Coordinator Name | Role | Phone | + +------+ + PCP | Unavailable | + +------+ + Encounter Details +--------+ + + + + | Date | Type | Department | Care Team | Description | +--------+ + + + + | 02/15/ | Hospital | [facility] | Ivy Sun | | | 2009 | Encounter | MED CTR LABORATORY | L, JUSTYN [address] | | | | | [address] [place] | [place]VE [place], [place] | | | | | [place], [place] | [address] | | | | | [address] | | | | | | [phone] | | | +--------+ + + + [...] [place] | | | | | | [id number] | | | | | | | | +--------+---------+ + + + documented as of this encounter Visit Diagnoses Not on filedocumented in this encounter"
--- OUTSIDE RECORDS SUMMARY | ~2019-10-23 | XMS | Encounter Summary ---
[...] Author + + + | Author | [facility] | | | and Rainerana | + + + | Organization | [facility] | | | [...] [place], [place] | | | | | [address] | | + + + + + | Jelena Hill | ECON | [place] | | | | | [address] | | + + + + + Care Team Providers + +------+ + | Care Warehouse Director Name | Role | Phone | [...] + + | 02/02/ | Refill | [facility] | Monika Guerrero, | Medication Refill | | 2019 | | MEDICINE [place] | PHOTOGRAPHY SALES ASSOCIATE [address] | | | | | [address] | [place] | | | | | [place] | [address] | | | | | [address] | | | | | | [phone] | | | +--------+--------+ + + + [...] [place] | | | | | | [address] | | | | | | | | +--------+---------+ + + + documented as of this encounter Visit Diagnoses Not on filedocumented in this encounter"
--- OUTSIDE RECORDS SUMMARY | ~2019-10-23 | XMS | Encounter Summary ---
Demographics + + + | Address | [address] | | | [place] [address] | + + + | Home Phone [...] Author | [facility] | | | and Rainerana | + + + | Organization | [facility] | [...] [place], [place] | | | | | [address] | | + + + + + | Jelena Hill | ECON | [place] | | | | | [address] | | + + + + + Care Team Providers + +------+ + | Care Alarm Installation Technician Name | Role | Phone | [...] + | 05/13/ | Telephone | [facility] | Ivy Sun | Herpes Zoster | | 2012 | | MEDICINE [place] | Rishabh, JUSTYN [address] | | | | | [address] | [place] | | | | | [place] | [address] | | | | | [address] | | | | | | [phone] | | | +--------+ + + + [...] [place] | | | | | | [address] | | | | | | | | +--------+---------+ + + + documented as of this encounter Visit Diagnoses Not on filedocumented in this encounter"
--- OUTSIDE RECORDS SUMMARY | ~2019-10-23 | XMS | Encounter Summary ---
Demographics + + + | Address | [address] | | | [place] [address] | + + + | Home Phone [...] Author | [facility] | | | and Rainerana | + + + | Organization | [facility] | | | and Rainerana [...] [place], [place] | | | | | [address] | | + + + + + | Jelena Hill | ECON | [place] | | | | | [address] | | + + + + + Care Team Providers + +------+ + | Care Rn Occupational Name | Role | Phone | + [...] + | 03/16/ | Refill | [facility] | Ivy Sun | Medication Refill | | 2013 | | MEDICINE [place] | Rishabh, JUSTYN [address] | | | | | [address] | [place], [place] | | | | | [place] | [address] | | | | | [address] | | | | | | [phone] | | | +--------+--------+ + + + [...] [place] | | | | | | [address] | | | | | | | | +--------+---------+ + + + documented as of this encounter Visit Diagnoses Not on filedocumented in this encounter"
--- OUTSIDE RECORDS SUMMARY | ~2019-10-23 | XMS | Encounter Summary ---
Demographics + + + | Address | [address] | | | [place] [address] | + + + | Home Phone | | + + + | Preferred Language | Unknown | + + + | Marital Status | Single | + + + | Confucianist Affiliation | 1077 | + + + | Race | Unknown | + + + | Ethnic Group | Unknown | + + + Author + + + | Author | [facility] | | | and Rainerana | + + + | Organization | [facility] [...] [place], [place] | | | | | [address] | | + + + + + | Jelena Hill | ECON | [place] | | | | | [address] | | + + + + + Care Team Providers + +------+ + | Care Abap Developer Name | Role | Phone | [...] | | Required | | loss, | COMMERCIAL ENERGY AUDITOR [address] | [address] | | | | | unspecified | [address] | [address], [place] [address] | | | | | hearing loss | [place], | [place], | | | | | type, | [place] [address] | [place] [address] | | | | | unspecified | Phone: | Phone: | | | | | laterality | [phone] | [phone] | | | | | Vertigo | Fax: | Fax: | | | | | | [phone] | [phone] | +--------+ + + + + + Reason for Visit + + + | Reason | Comments | + + + | Referral | | + + + Encounter Details +--------+ + + + + | Date | Type | Department | Care Team | Description | +--------+ + + + + | 01/24/ | Telephone | [facility] | Ivy Sun | Referral | | 2017 | | MEDICINE [place] | L, COMMERCIAL ENERGY AUDITOR [address] | | | | | [address] | [address]VE [place], [place] | | | | | [place], [place] | [address] | | | | | [address] | | | | | | [phone] | | | +--------+ + + + [...] [place] | | | | | | [address] | | | | | | | [...]
--- OUTSIDE RECORDS SUMMARY | ~2019-10-23 | XMS | Encounter Summary ---
Demographics + + + | Address | [address] | | | [place] [address] | + + + | Home Phone [...] | Author | [facility] | | | and Rainerana | + + + | Organization | [facility] | | [...] [place], [place] | | | | | [address] | | + + + + + | Jelena Hill | ECON | [place] | | | | | [address] | | + + + + + Care Team Providers + +------+ + | Care Cartridge Feeder Name | Role | Phone | [...] | 05/07/ | Telephone | [facility] | Ivy Sun | Results | | 2012 | | MEDICINE [place] | JUSTYN Keating [address] | | | | | [address] | [place], [place] | | | | | [place], [place] | [address] | | | | | [address] | | | | | | [phone] | | | +--------+ + + + [...] [place] | | | | | | [address] | | | | | | | | +--------+---------+ + + + documented as of this encounter Visit Diagnoses Not on filedocumented in this encounter"
--- OUTSIDE RECORDS SUMMARY | ~2019-10-23 | XMS | Encounter Summary ---
Demographics + + + | Address | [address] | | | [place] [address] | + + + | Home Phone | | + + + | Preferred Language | Unknown | + + + | Marital Status | Single | + + + | Yazidism Affiliation | 1077 | + + + | Race | Unknown | + + + | Ethnic Group | Unknown | + + + Author + + + | Author | [facility] | | | and Rainerana | + + + | Organization | [facility] | | [...] [place], [place] | | | | | [address] | | + + + + + | Jelena Hill | ECON | [place] | | | | | [address] | | + + + + + Care Team Providers + +------+ + | Care Spice Cleaner Name | Role | Phone | [...] + | 12/23/ | Refill | [facility] | Ivy Sun | Medication Refill | | 2012 | | MEDICINE [place] | Rishabh, JUSTYN [address] | | | | | [address] | [place], [place] | | | | | [place], [place] | [address] | | | | | [address] | | | | | | [phone] | | | +--------+--------+ + + + [...] | 2020 | Visit | | JUSTYN [address] | | | | | | [place] | | | | | | [address] | | | | | | | | +--------+---------+ + + + documented as of this encounter Visit Diagnoses + + | Diagnosis | + + | Insomnia - Primary Insomnia, unspecified | + + documented in this encounter"
--- OUTSIDE RECORDS SUMMARY | ~2019-10-23 | XMS | Clinical Summary ---
Demographics + + + | Address | [address] | | | [place] [address] | + + + | Home Phone | | + + + | Preferred Language | Unknown | + + + | Marital Status | Unknown | + + + | Mu-Ism Affiliation | Unknown | + + + | Race | Unknown | + + + | Ethnic Group | Unknown | + + + Author + + + | Author | [facility] (Historical as of | | | 06-13-19) | + + + | Organization | [facility] (Historical as of | | | 06-13-19) | + + + | Address | Unknown | + + + | Phone | Unavailable | + + + Care Team Providers + +------+ + | Care Link Trainer Name | Role | Phone | [...]
--- OUTSIDE RECORDS SUMMARY | ~2019-10-23 | XMS | Encounter Summary ---
Demographics + + + | Address | [address] | | | [place] [address] | + + + | Home Phone | | + + + | Preferred Language | Unknown | + + + | Marital Status | Single | + + + | Worship Affiliation | 1077 | + + + | Race | Unknown | + + + | Ethnic Group | Unknown | + + + Author + + + | Author | [facility] | | | and Rainerana | + + + | Organization | [facility] | | | and [...] [place], [place] | | | | | [address] | | + + + + + | Jelena Hill | ECON | [place] | | | | | [address] | | + + + + + Care Team Providers + +------+ + | Care Supervisor Logging Name | Role | Phone | + +------+ + | Ivy Sun | PCP | | + +------+ + Encounter Details +--------+ + + + + | Date | Type | Department | Care Team | Description | +--------+ + + + + | 08/17/ | Hospital | [facility] | Ivy Sun | Right-sided thoracic | | 2015 | Encounter | MED CTR [place] XRAY | L, TROUBLE OPERATOR [address] | back pain; Rib pain | | | | [address] [place] | AVE [place], [place] | on right side | | | | [place], [place] | [address] | | | | | [address] | | | | | | [phone] | | | +--------+ + + + [...] [place] | | | | | | [address] | | | | | | | [...] pain . COMPARISON: Thoracic spine x-ray | [facility] | | from same date FINDINGS: Heart [...] + | [facility] [facility] | [address] | [place] | [phone] | | [facility] | | [address] | | | - IMAGING | | [...] [address] | [place] | [phone] | | [facility] | | [address] | | | - IMAGING | | | | + + + + + documented in this encounter Visit Diagnoses + + | Diagnosis | + + | Right-sided thoracic back pain | + + | Rib pain on right side Chest pain, unspecified | + + documented in this encounter"
--- OUTSIDE RECORDS SUMMARY | ~2019-10-23 | XMS | Encounter Summary ---
Demographics + + + | Address | [address] | | | [place] [address] | + + + | Home Phone [...] Author | [facility] | | | and Rainerana | + + + | Organization | [facility] | | [...] [place], [place] | | | | | [address] | | + + + + + | Jelena Hill | ECON | [place] | | | | | [address] | | + + + + + Care Team Providers + +------+ + | Care Sharepoint Solutions Architect Name | Role | Phone | + +------+ + | Ivy Sun | PCP | | + +------+ + Encounter Details +--------+ + + + + | Date | Type | Department | Care Team | Description | +--------+ + + + + | 03/05/ | Orders Only | [facility] [place] | Francis Tovar | Spondylosis of | | 2017 | | PHYSIATRY [address] | lumbar region | | | | [place], | ST [place], [place] | without myelopathy | | | | [place] [address] | [address] | or radiculopathy | | | | [phone] | | (Primary Dx) | +--------+ + + + + [...] [place] | | | | | | [address] | | | | | | | | +--------+---------+ + + + documented as of this encounter Results [place] Facet Injection Lumbar Sacral (03/20/2017 1:44 PM PDT) + + | Specimen | + + | | + + + + ---+ | Narrative | Performed At | + + ---+ | | [facility] | | 03/20/2017Bilateral Lumbar Facet Steroid Injections Diagnosis: Lumbar | [facility] | | Spondylosis ICD-10 Code M47.816 Lucie Miller presents to the | [facility] | | fluoroscopy suite for fluoroscopically-guided bilateral [...] + | [facility] | [address] | [place] | [phone] | | [facility] | | [address] | | | - IMAGING | | | | + + + + + documented in this encounter Visit Diagnoses + + | Diagnosis | + + | Spondylosis of lumbar region without myelopathy or radiculopathy - Primary | | Lumbosacral spondylosis without myelopathy | + + documented in this encounter"
--- OUTSIDE RECORDS SUMMARY | ~2019-10-23 | XMS | Encounter Summary ---
Demographics + + + | Address | [address] | | | [place] [address] | + + + | Home Phone [...] | Author | [facility] | | | and Rainerana | + + + | Organization | [facility] | | | and [...] [place], [place] | | | | | [address] | | + + + + + | Jelena Hill | ECON | [place] | | | | | [address] | | + + + + + Care Team Providers + +------+ + | Care Records Management Analyst Name | Role | Phone | [...] Medicine | K[place] | Reymundo Allen | [place] [address] | | | Required | | (obstructive | MD Ivy [address] | [place] | | | | | sleep | [place] | [place], | | | | | apnea) | [facility] | [place] [address] | | | | | Restless | [place] | Phone: | | | | | legs | [address] | [phone] | | | | | syndrome | Phone: | Fax: | | | | | Procedures | [phone] | [phone] | | | | | [place] POLYSOM | Fax: | | | | | | 6/>YRS SLEEP | [phone] | | | | | | 4/> [...] | Required | | sleep apnea | AUTOMOTIVE 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 [address] | Disorder [address] | | | | | | [address] | [place] | | | | | | [place], | [place], | | | | | | [place] [address] | [place] [address] | | | | | | Phone: | Phone: | | | | | | [phone] | [phone] | | | | | | Fax: | Fax: | | | | | | [phone] | [phone] | +--------+ + + + + + Encounter Details +--------+---------+ + + + | Date | Type | Department | Care Team | Description | +--------+---------+ + + + | 09/16/ | Office | [facility] | Reymundo Guillory | KAMERON (obstructive | | 2017 | Visit | SLEEP DISORDER [address] | MD Ivy [address] | sleep apnea) | | | | [address] [place] | [place] | (Primary Dx); | | | | [place] [address] | [place] [address] | Restless legs | | | | [phone] | [phone] | syndrome; Low | | | | [...] alcohol, nicotine, and caffeine. Date Last Reviewed: 04/03/201519993433-2372 [employer]. [address] [place] [address], [place] [address]. All righ ts reserved. This information is not intended as a substitute for professional medical care. Always follow your healthcare professional's instructions. documented in this encounter Progress Notes Reymundo Guillory Jr., MD - 09/16/2017 10:00 AM PSTFormatting of this note might be differen t from the original. [facility] [place] [address] Ref: Ivy Sun ARNP CC: Chief Complaint Patient presents with Consult Apnea History of the Present Illness:This is a 67 year old female who is referred for sleep medic ine consultation by Capri ALEJANDRA because of KAMERON. Other significant medical issues include D epression/anxiety, aortic root enlargement, DJD, HBP, KAMERON, Obesity, prediabetes, rosacea, RL S. The patient's records ([facility] EMR and old sleep records) are reviewed. The patient is inte rviewed and examined. Capri Sun's records indicate that the patient needs the [...] tablet by mouth Daily. 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 | [place], [place] | [phone] | | [facility] | | [address] | | | - LABORATORY | | [...]
--- OUTSIDE RECORDS SUMMARY | ~2019-10-23 | XMS | Encounter Summary ---
Demographics + + + | Address | [address] | | | [place] [address] | + + + | Home Phone [...] + | Author | [facility] | | | and Rainerana | + + + | Organization | [facility] | | | and [...] [place], [place] | | | | | [address] | | + + + + + | Jelena Hill | ECON | [place] | | | | | [address] | | + + + + + Care Team Providers + +------+ + | Care Gang Miner Name | Role | Phone | + +------+ + | Ivy Sun | PCP | | + +------+ + Encounter Details +--------+ + + + + | Date | Type | Department | Care Team | Description | +--------+ + + + + | 05/22/ | Hospital | [facility] | Forest Moreno MD | | | 2010 | Encounter | MED CTR MP INTRA OP | [address], [place] | | | | | [address] | [address] [place], [place] | | | | | [place], [place] | [address] | | | | | [address] | | | | | | [phone] | | | +--------+ + + + [...]
--- OUTSIDE RECORDS SUMMARY | ~2019-10-23 | XMS | Encounter Summary ---
Demographics + + + | Address | [address] | | | [place] [address] | + + + | Home Phone [...] + + | Author | [facility] | | | and Rainerana | + + + | Organization | [facility] | [...] [place], [place] | | | | | [address] | | + + + + + | Jelena Hill | ECON | [place] | | | | | [address] | | + + + + + Care Team Providers + +------+ + | Care Mash Filter Operator Name | Role | Phone | [...] Compression | Ivy L, | [address] | | | | | fracture of | [address] | [place], | | | | | thoracic | [address] | [place] | | | | | spine, | [place], | [address] | | | | | non-traumati | [place] [address] | Phone: | | | | | c, initial | Phone: | [phone] | | | | | encounter | [phone] | Fax: | | | | | ([facility]) | Fax: | [phone] | | | | | Procedures | [phone] | | | | | | MRI [...] + | 08/17/ | Telephone | [facility] | Ivy Sun | Results | | 2015 | | MEDICINE [place] | L, TOOL SMITH [address] | | | | | [address] | [place], [place] | | | | | [place], [place] | [address] | | | | | [address] | | | | | | [phone] | | | +--------+ + + + [...] | | | | | [place] | | | | | | [address] | | | | | | | [...] None. PROTOCOL: Sagittal T2, sagittal T1, | [facility] | | sagittal STIR, axial T2. [...] [address] | [place] | [phone] | | [facility] | | [address] | | | - IMAGING | | | | + + + + + documented in this encounter Visit Diagnoses + + | Diagnosis | + + | Compression fracture of thoracic spine, non-traumatic, initial encounter (HCC) - | | Primary | + + documented in this encounter"
--- OUTSIDE RECORDS SUMMARY | ~2019-10-23 | XMS | Encounter Summary ---
Demographics + + + | Address | [address] | | | [place] [address] | + + + | Home Phone [...] | Author | [facility] | | | and Rainerana | + + + | Organization | [facility] | [...] [place], [place] | | | | | [address] | | + + + + + | Jelena Hill | ECON | [place] | | | | | [address] | | + + + + + Care Team Providers + +------+ + | Care Meal Room Hand Name | Role | Phone | [...] + + | 01/01/ | Telephone | [facility] | Ivy Sun | Medication Question | | 2016 | | MEDICINE [place] | JUSTYN Keating [address] | | | | | [address] | [place]VE [place], [place] | | | | | [place], [place] | [address] | | | | | [address] | | | | | | [phone] | | | +--------+ + + + [...] [place] | | | | | | [address] | | | | | | | | +--------+---------+ + + + documented as of this encounter Visit Diagnoses + + | Diagnosis | + + | OAB (overactive bladder) - Primary Hypertonicity of bladder | + + documented in this encounter"
--- OUTSIDE RECORDS SUMMARY | ~2019-10-23 | XMS | Encounter Summary ---
Demographics + + + | Address | [address] | | | [place] [address] | + + + | Home Phone [...] | Author | [facility] | | | and Rainerana | + + + | Organization | [facility] | | | and [...] [place], [place] | | | | | [address] | | + + + + + | Jelena Hill | ECON | [place] | | | | | [address] | | + + + + + Care Team Providers + +------+ + | Care Slat Grader Name | Role | Phone | [...] + + | 07/10/ | Telephone | [facility] | Ivy Sun | Records Request (for | | 2012 | | MEDICINE [place] | JUSTYN Keating [address] | Pre-op) | | | | [address] | AVE [place], [place] | | | | | [place], [place] | [address] | | | | | [address] | | | | | | [phone] | | | +--------+ + + + [...] [place] | | | | | | [address] | | | | | | | | +--------+---------+ + + + documented as of this encounter Visit Diagnoses Not on filedocumented in this encounter"
--- OUTSIDE RECORDS SUMMARY | ~2019-10-23 | XMS | Encounter Summary ---
Demographics + + + | Address | [address] | | | [place] [address] | + + + | Home Phone [...] Author | [facility] | | | and Rainerana | + + + | Organization | [facility] | [...] [place], [place] | | | | | [address] | | + + + + + | Jelena Hill | ECON | [place] | | | | | [address] | | + + + + + Care Team Providers + +------+ + | Care Build Manager Name | Role | Phone | [...] | | | | | | | [place] | | | | | | | [...] [facility] | | | | [address] | [address] [place] | | | | | [place], [place] | [place] [address] | | | | | [address] | [phone] | | | | | [phone] | | | +--------+---------+ + + + [...] This can be controlled with an o bna-zwa-tcsgfpl pain reliever. You may have some light [...] than 1 pad an hour). A fever [id number]. Increasing abdominal pain, tenderness, or cramping. Foul-smelling discharge. [id number] Alec [facility], [address] [place] [address], [place] [address]. All rights reserve d. This information is [...] [place] | | | | | | [address] | | | | | | | [...] [address] | [place] | [phone] | | [facility] | | [address] | | | - LABORATORY | | | | + + + + + | [address] | [address] | [place], [place] | | | [facility] | | [address] | | | - LABORATORY | | [...] + | [address] | [address] | [place] | [phone] | | [facility] | | [address] | | | - LABORATORY | | | | + + + + + | [facility] [facility] | [address] | [place] | | | [facility] | | [address] | | | - LABORATORY | | [...] | | | hrs. If ineffective use [place] | | | | | | | [...]
--- OUTSIDE RECORDS SUMMARY | ~2019-10-23 | XMS | Encounter Summary ---
Demographics + + + | Address | [address] | | | [place] [address] | + + + | Home Phone [...] + | Author | [facility] | | | and Rainerana | + + + | Organization | [facility] | | [...] [place], [place] | | | | | [address] | | + + + + + | Jelena Hill | ECON | [place] | | | | | [address] | | + + + + + Care Team Providers + +------+ + | Care Document Imaging Specialist Name | Role | Phone | + +------+ + | Ivy Sun | PCP | | + +------+ + Reason for Visit + + + | Reason | Comments | + + + | Pre-Diabetes | | + + + Evaluate & [...] | | Required | Diabetes | | IN[address] | Education | | | | Services | | [address] | [address] | | | | | | [place], | [place], | | | | | | [place] [address] | [place] | | | | | | Phone: | [address] | | | | | | [phone] | Phone: | | | | | | Fax: | [phone] | | | | | | [phone] | Fax: | | | | | | | [phone] | +--------+ + + + + + Encounter Details +--------+---------+ + + + | Date | Type | Department | Care Team | Description | +--------+---------+ + + + | 04/12/ | Office | [facility] | Ivy Sun | Prediabetes (Primary | | 2013 | Visit | MED [facility] DIABETES | L, INSTRUCTOR CREEL[address] | Dx) | | | | EDUCATION [address] [place], [place] | | | | | [place], | [address] | | | | | [place] [address] | | | | | | [phone] | Esteban Snow, KENDRICK | | +--------+---------+ + + + Social [...] + + documented as of this encounter Patient Instructions Patient Instructions Esteban Snow RN - 04/12/2014 11:38 AM PDTRead: Read the printed mate rial provided for you by your hospital educator, Go [email or web address] for more reading material and videos on how to prevent type 2 diabetes Eat healthy foods: Choose foods low in fat and calories and high in fiber. Focus on fruits, vegetables and whole grains. Strive for variety; this will help without compromising taste or nutrition. Be physical activity: Aim for 30 to 60 minutes of moderate physical activity at least five days a week such as taking a brisk daily walk, riding a bike, swimming laps. These routines may be broken up into smaller sessions spread throughout the day. Maintain Lose a little weight. Losing just 5 to 10 percent of body weight can reduce the ri sk of developing type 2 diabetes. To keep weight in a healthy range, focus on permanent garcía ges to eating and exercise habits. Remember the benefits of losing weight, such as a healthi er heart, more energy and improved self-esteem. Medications: Ask primary care provider about the need for medications. Sometimes medication s such as the oral diabetes drugs metformin (Glucophage) and acarbose (Precose) also are an option for those at high risk of diabetes. Monitoring: Ask primary care provider about the need for checking blood sugar at home. Real ize that blood sugar monitoring is usually not needed or covered by most insurance for those with prediabetes. If checking blood sugar is ordered try checking occasionally before and a fter a meal or exercise so you will learn what foods or exercise works best for you. Your bl ood sugars goals is less than 110 before meals and less than 140 two hours after meals. FOR ONGOING SUPPORT Consider attending diabetes support group meetings Consider joining a [facility] 16 week diabetes prevention program. Consider participating in a 16 week on line program such as [email or web address] Please reply to any follow up surveys that receive in the mail. Call your diabetes care team for any questions or concerns about preventing diabetesElectro nically signed by Esteban Snow RN at 04/12/2014 11:39 AM PDT documented in this encounter Progress Notes Esteban Snow, RN - 04/12/2014 11:50 AM PDT INITIAL DIABETES EDUCATION NOTE Date: 04/12/2014 Visit Type: Individual Support Person(s) Present: None Barriers to Care: Socioeconomic Diabetes Education History: New Patient Pertinent Medical Information: Noted in [facility] medical record Resources Provided: [facility] Diabetes Answers handout, ADA Living Well with Diabetes, ADA Jay bennett Do I Begin, Patient Instructions, Information about upcoming workshops and support group dakota rao Overview Topics Discussed: Defining diabetes diagnosis in basic terms, causes and treatmen t options AADE 7 Self-Care Behaviors (Discussed): Healthy Eating: Assessment: describes many days that are high in carbohydrates and calories, is overweight and interested in losing weight Discussion: Portion control using the plate method, healthy food choices, effects of certai n food on blood sugar Being Active: Assessment: no exercise routine, planning to walk more often Discussion: Benifits of exercise on blood glucose, barriers to exercise Monitoring Blood Glucose: Assessment: has a meter and has been checking 3 to 4 times a week with resulsts around 100 or less, none less than 70 Discussion: tools to use to understand results and make changes to improve control, Taking Diabetes Medication: Assessment: just stated Metformin 500 mg per day Discussion: sideefects and action Problem Solving: Assessment: none identified Handout: sick days, travel, overcoming financial burden Reducing Risks: Assessment: having no trouble obtaining recommended healthy services such as PCP visit, de ntal and eye exams Healthy Coping: Assessment: experiencing stress and taking medications for good control Discussion: finding healthy ways managing stress and overcoming depression, getting support form family friends and medical team, support group meetings Behavioral Goals: Healthy Eating 04/12/14 Healthy Eating Goals Date 04/12/14 Goal Choose foods low in fat and calories and high in fiber. Focus on fruits, vegetables and whole grains. Strive for variety, this will help without compromising taste or nutritio n. Timeframe evaluate at PCP visits Percentage 25% Pt Confidence 8 Being Active 04/12/14 Being Active Goal Date 04/12/14 Goal Aim for 30 to 60 minutes of moderate physical activity at least five days a week suc h as taking a brisk daily walk, riding a bike, swimming laps. These routines may be broken u p into smaller sessions spread throughout the day. Timeframe on going Percentage 10% Pt Confidence 8 Monitoring Blood Glucose 04/12/14 Monitoring Blood Glucose Goal Date 04/12/14 Goal check occassionally before and after meals, review results with PCP Timeframe evaluate at next PCP visit Percentage 25% Pt Confidence 8 Taking Diabetes Medication 04/12/14 Taking Diabetes Medication Goal Date 04/12/14 Goal Continue Meformin Timeframe evaluate at PCP visits Percentage 25% Pt Confidence 8 Diabetes Self-Management Follow-Up Plan: Contact in 1 Month: Phone and Mail Future Appointments Date Time Provider Department Center 05/06/2014 10:45 JUSTYN Butt [facility] 07/07/2014 10:15 JUSTYN Butt [facility] Time spent with patient: 60 minutes documented in this enco unter Plan of Treatment +--------+---------+ + + + | Date | Type | Specialty | Care Team | Description | +--------+---------+ + + + | 11/23/ | Office | Family Medicine | Ivy Sun | | | 2020 | Visit | | JUSTYN Keating [address] | | | | | | [place] | | | | | | [address] | | | | | | | | +--------+---------+ + + + documented as of this encounter Visit Diagnoses + + | Diagnosis | + + | Prediabetes - Primary Other abnormal glucose | + + documented in this encounter"
--- OUTSIDE RECORDS SUMMARY | ~2019-10-23 | XMS | Encounter Summary ---
Demographics + + + | Address | [address] | | | [place] [address] | + + + | Home Phone [...] | Author | [facility] | | | and Rainerana | + + + | Organization | [facility] | | | and Rainerana | [...] [place], [place] | | | | | [address] | | + + + + + | Jelena Hill | ECON | [place] | | | | | [address] | | + + + + + Care Team Providers + +------+ + | Care Marine Safety Officer Name | Role | Phone | + +------+ + | Ivy Sun | PCP | | + +------+ + Encounter Details +--------+ + + + + | Date | Type | Department | Care Team | Description | +--------+ + + + + | 11/10/ | Abstract | [facility] [place] [facility] | Ivy Sun | | | 2019 | | [facility] | L, MANNEQUIN MAKER [address] | | | | | [address] | [address]VE [place] | | | | | [place] | [address] | | | | | [address] | | | | | | [phone] | | | +--------+ + + + [...] [place] | | | | | | [address] | | | | | | | [...]
--- OUTSIDE RECORDS SUMMARY | ~2019-10-23 | XMS | Encounter Summary ---
Demographics + + + | Address | [address] | | | [place] [address] | + + + | Home Phone [...] | Author | [facility] | | | and Rainerana | + + + | Organization | [facility] | | | and [...] [place], [place] | | | | | [address] | | + + + + + | Jelena Hill | ECON | [place] | | | | | [address] | | + + + + + Care Team Providers + +------+ + | Care Screw Machine Operator Swiss Type Name | Role | Phone | + +------+ + | Ivy Sun | PCP | | + +------+ + Encounter Details +--------+ + + + + | Date | Type | Department | Care Team | Description | +--------+ + + + + | 08/10/ | Abstract | [facility] [place] [facility] | Ivy Sun | | | 2015 | | [facility] | L, BOX OFFICE CLERK [address] | | | | | [address] | [address] [place] | | | | | [place] | [address] | | | | | [address] | | | | | | [phone] | | | +--------+ + + + [...] [place] | | | | | | [address] | | | | | | | [...]
--- OUTSIDE RECORDS SUMMARY | ~2019-10-23 | XMS | Encounter Summary ---
Demographics + + + | Address | [address] | | | [place] [address] | + + + | Home Phone [...] | Author | [facility] | | | and Rainerana | + + + | Organization | [facility] | | | and Rainerana | [...] [place], [place] | | | | | [address] | | + + + + + | Jelena Hill | ECON | [place] | | | | | [address] | | + + + + + Care Team Providers + +------+ + | Care Silk Soaker Name | Role | Phone | + [...] | lumbar region | | | | [place], | [place], [place] | without myelopathy | | | | [place] [address] | [address] | or radiculopathy | | | | [phone] | | (Primary Dx) | +--------+ + [...] [place] | | | | | | [address] | | | | | | | [...] [id number] Lucie Miller presents to the | [facility] | | fluoroscopy suite for fluoroscopically-guided [...] | [address] 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
--- OUTSIDE RECORDS SUMMARY | ~2019-10-23 | XMS | Encounter Summary ---
Demographics + + + | Address | [address] | | | [place] [address] | + + + | Home Phone [...] + + + | Author | [facility] | | | and Rainerana | + + + | Organization | [facility] | | | and Rainerana [...] [place], [place] | | | | | [address] | | + + + + + | Jelena Hill | ECON | [place], [place] | | | | | [address] | | + + + + + Care Team Providers + +------+ + | Care Collar Separator Name | Role | Phone | + [...] | 10/01/ | Telephone | [facility] | Ivy Sun | LABS | | 2018 | | MEDICINE [facility] | JUSTYN Keating [address] | | | | | [address] | [address] [place], [place] | | | | | [place], [place] | [address] | | | | | [address] | | | | | | [phone] | | | +--------+ + + + [...] [place] | | | | | | [address] | | | | | | | | +--------+---------+ + + + documented as of this encounter Visit Diagnoses Not on filedocumented in this encounter"
--- OUTSIDE RECORDS SUMMARY | ~2019-10-23 | XMS | Encounter Summary ---
Demographics + + + | Address | [address] | | | [place] [address] | + + + | Home Phone [...] + | Author | [facility] | | | and Rainerana | + + + | Organization | [facility] | | [...] [place], [place] | | | | | [address] | | + + + + + | Jelena Hill | ECON | [place] | | | | | [address] | | + + + + + Care Team Providers + +------+ + | Care Gear Cutter Name | Role | Phone | + +------+ + | Ivy Sun | PCP | | + +------+ + Reason for Visit + + + | Reason | Comments | + + + | Paperwork | disabled parking permit | + + + Encounter Details +--------+ + + + + | Date | Type | Department | Care Team | Description | +--------+ + + + + | 07/31/ | Telephone | [facility] | Ivy Sun | Paperwork (disabled | | 2016 | | MEDICINE [place] | JUSTYN Keating [address] | parking permit) | | | | [address] | [place]VE [place] | | | | | [place] | [address] | | | | | [address] | | | | | | [phone] | | | +--------+ + + + [...] [place] | | | | | | [id number] | | | | | | | | +--------+---------+ + + + documented as of this encounter Visit Diagnoses Not on filedocumented in this encounter"
--- OUTSIDE RECORDS SUMMARY | ~2019-10-23 | XMS | Encounter Summary ---
Demographics + + + | Address | [address] | | | [place] [address] | + + + | Home Phone [...] + + + | Author | [facility] | | | and Rainerana | + + + | Organization | [facility] | | | and [...] [place], [place] | | | | | [address] | | + + + + + | Jelena Hill | ECON | [place], [place] | | | | | [address] | | + + + + + Care Team Providers + +------+ + | Care Planting Machine Crewman Name | Role | Phone | + +------+ + PCP | Unavailable | + +------+ + Encounter Details +--------+ + + + + | Date | Type | Department | Care Team | Description | +--------+ + + + + | 02/15/ | Hospital | [facility] | Ivy Sun | | | 2009 | Encounter | MED CTR LABORATORY | L, JUSTYN [address] | | | | | [address] [place] | [place] [place], [place] | | | | | [place], [place] | [address] | | | | | [address] | | | | | | [phone] | | | +--------+ + + + [...] [place] | | | | | | [id number] | | | | | | | | +--------+---------+ + + + documented as of this encounter Visit Diagnoses Not on filedocumented in this encounter"
--- OUTSIDE RECORDS SUMMARY | ~2019-10-23 | XMS | Encounter Summary ---
Demographics + + + | Address | [address] | | | [place] [address] | + + + | Home Phone [...] + | Author | [facility] | | | and Rainerana | + + + | Organization | [facility] | | | and [...] [place], [place] | | | | | [address] | | + + + + + | Jelena Hill | ECON | [place] | | | | | [address] | | + + + + + Care Team Providers + +------+ + | Care Cad Intern Name | Role | Phone | [...] [address] | | | | | [phone] | [place] | | | | | | [address] | | | | | | | [...] [place] | | | | | | [address] | | | | | | | [...]
--- OUTSIDE RECORDS SUMMARY | ~2019-10-23 | XMS | Encounter Summary ---
Demographics + + + | Address | [address] | | | [place] [address] | + + + | Home Phone [...] + + + | Author | [facility] | | | and Rainerana | + + + | Organization | [facility] | | [...] [place], [place] | | | | | [address] | | + + + + + | Jelena Hill | ECON | [place] | | | | | [address] | | + + + + + Care Team Providers + +------+ + | Care Vp Platforms Name | Role | Phone | + [...] | SR | | | | | [phone] | | | +--------+ + + + [...] [place] | | | | | | [address] | | | | | | | [...]
--- OUTSIDE RECORDS SUMMARY | ~2019-10-23 | XMS | Encounter Summary ---
Demographics + + + | Address | [address] | | | [place] [address] | + + + | Home Phone [...] Author | [facility] | | | and Rainerana | + + + | Organization | [facility] | | | and Rainerana [...] [place], [place] | | | | | [address] | | + + + + + | Jelena Hill | ECON | [place] | | | | | [address] | | + + + + + Care Team Providers + +------+ + | Care Harm Reduction Worker Name | Role | Phone | [...] + + | 08/25/ | Office | [facility] | Ivy Sun | PERS HX TOBACCO USE | | 2011 | Visit | [facility] | JUSTYN Keating [address] | PRESENTING HAZARDS | | | | [address] | AVE [place], [place] | HEALTH; Needs flu | | | | [place], [place] | [address] | shot; Need for | | | | [address] | | pneumococcal | | | | [phone] | | vaccination; | | | | [...] your behavior and peer support. Call the [facility] Quitline for more information. 797-DQAX-EYY (438-249-8297). Low-cost or free programs are offered by many hospitals, local chapters of the [employer] [employer] (975-624-5776) a nd the [employer] [employer] (928-658-1257). Support at home is important too. Non-smokers can help by offering praise and encouragement. If the smoker fails to quit, encourage them to try again! EEQN-CTY-QGSYAUS MEDICINES: For those who can't quit on [...] such as bupropion (Zyban, Wellbutrin), varenicline (Chantix, [place] ix), a niocotine inhaler or nasal spray. [...] smoking, visit the following links: National Cancer [place] , Clearing the Air, Quit Smoking Today - an online coto klet. http://www.smokefree.gov/pubs/clearing_the_air.pdf Smokefree.gov http://smokefree.gov/ QuitNet http://www.quitnet.com/ 2064-5424 Alec Fine, [address] [place] [address]. All rights reserve d. This information is [...] Assessment: 1. PERS HX TOBACCO USE PRESENTING 1calendar varenicline (CHANTIX ABBY) 0.5 MG X 11 & 1 MG X 42 tablet 2. Needs flu shot 3. Need for pneumococcal vaccination 4. HYPERTENSION, CONTROLLED Plan: 1. PERS HX TOBACCO USE PRESENTING 1calendar discussed chantix at length and potentia l [...] [place] | | | | | | [address] | | | | | | | [...]
--- OUTSIDE RECORDS SUMMARY | ~2019-10-23 | XMS | Encounter Summary ---
Demographics + + + | Address | [address] | | | [place] [address] | + + + | Home Phone [...] | [facility] | | | and Rainerana | + + + | Organization | [facility] [...] [place], [place] | | | | | [address] | | + + + + + | Jelena Hill | ECON | [place] | | | | | [address] | | + + + + + Care Team Providers + +------+ + | Care Gis Coordinator Name | Role | Phone | + +------+ + | Ivy Sun | PCP | | + +------+ + Encounter Details +--------+ + + + + | Date | Type | Department | Care Team | Description | +--------+ + + + + | 05/05/ | Hospital | [facility] | Ivy Sun | Dysuria | | 2013 | Encounter | MED CTR LABORATORY | L, DIESEL MAINTENANCE ELECTRICIAN [address] | | | | | [address] [place] | [place] [place], [place] | | | | | [place], [place] | [address] | | | | | [address] | | | | | | [phone] | | | +--------+ + + + [...] [place] | | | | | | [address] | | | | | | | [...] + | [facility] | [address] | [place] | [phone] | | [facility] | | [address] | | | - LABORATORY | | | | + + + + + | [facility] | [address] | [place], [place] | | | [facility] | | [address] | | | - LABORATORY | | | | + + + + + documented in this encounter Visit Diagnoses + + | Diagnosis | + + | Dysuria | + + documented in this encounter"
--- OUTSIDE RECORDS SUMMARY | ~2019-10-23 | XMS | Encounter Summary ---
Demographics + + + | Address | [address] | | | [place] [address] | + + + | Home Phone [...] Author | [facility] | | | and Rainerana | + + + | Organization | [facility] | [...] [place], [place] | | | | | [address] | | + + + + + | Jelena Hill | ECON | [place], [place] | | | | | [address] | | + + + + + Care Team Providers + +------+ + | Care Dairy Machine Operator Farmworker Name | Role | Phone | + [...] + + | 10/03/ | Office | [facility] [place] [facility] | Hiren Mai PA | KAMERON on CPAP (Primary | | 2011 | Visit | SLEEP DISORDER 401 | [address] | Dx) | | | | [address] [place] | [place] | | | | | [place] [address] | [address] | | | | | [phone] | | | +--------+---------+ + + + [...] mask obtained from: [facility] [place] pressure is: 5-14 cm 95%: 11.6 cm [...] go back to [facility] [place] to get a ResMed Quattro FX full face mask. I will follow up again in 1 month, sooner prn. Thirty minutes were spent [id number]-jo-vrfv, with the majority of time spent in [...] [place] | | | | | | [address] | | | | | | | | +--------+---------+ + + + documented as of this encounter Visit Diagnoses + + | Diagnosis | + + | KAMERON on CPAP - Primary Obstructive sleep apnea (adult) (pediatric) | + + documented in this encounter"
--- OUTSIDE RECORDS SUMMARY | ~2019-10-23 | XMS | Encounter Summary ---
Demographics + + + | Address | [address] | | | [place] [address] | + + + | Home Phone [...] | Author | [facility] | | | and Rainerana | + + + | Organization | [facility] | | [...] [place] | | | | | [address] | | + + + + + Care Team Providers + +------+ + | Care Urinalysis Technician Name | Role | Phone | + +------+ + | Ivy Sun | PCP | | + +------+ + Encounter Details +--------+ + + + + | Date | Type | Department | Care Team | Description | +--------+ + + + + | 07/07/ | Hospital | [facility] | Ivy Sun | Right foot injury, | | 2013 | Encounter | MED CTR OREN XRAY | L, SAMPLE GRADER [address] | initial encounter | | | | [address] [place] | [address] [place], [place] | | | | | [place], [place] | [address] | | | | | [address] | | | | | | [phone] | | | +--------+ + + + [...] [place] | | | | | | [address] | | | | | | | [...] + | MISCELLANEOUS LAB | | | [phone] | + +---------+ + + | MISCELANIOUS LAB | | | [phone] | + +---------+ + + documented in this encounter Visit Diagnoses + + | Diagnosis | + + | Right foot injury, initial encounter | + + documented in this encounter"
--- OUTSIDE RECORDS SUMMARY | ~2019-10-23 | XMS | Encounter Summary ---
Demographics + + + | Address | [address] | | | [place] [address] | + + + | Home Phone [...] Author | [facility] | | | and Rainerana | + + + | Organization | [facility] [...] [place], [place] | | | | | [address] | | + + + + + | Jelena Hill | ECON | [place] | | | | | [address] | | + + + + + Care Team Providers + +------+ + | Care Continuous Towel Roller Name | Role | Phone | + [...] 2013 | | [facility] [place] | L, CUT LACE MACHINE OPERATOR [address] | | | | | [address] | [address]VE [place] | | | | | [place] | [address] | | | | | [address] | | | | | | [phone] | | | +--------+ + + + [...] [place] | | | | | | [address] | | | | | | | [...] + | [facility] | [address] | [place] | | | [facility] | | [address] | | | - LABORATORY | | [...] St | [place] | | | [facility] | | [address] | | | - LABORATORY | | [...] | | | | | | | Bahamian, | | | | | | External [...]
--- OUTSIDE RECORDS SUMMARY | ~2019-10-23 | XMS | Encounter Summary ---
Demographics + + + | Address | [address] | | | [place] [address] | + + + | Home Phone [...] + | Author | [facility] | | | and Rainerana | + + + | Organization | [facility] | | | and Rainerana [...] [place], [place] | | | | | [address] | | + + + + + | Jelena Hill | ECON | [place] | | | | | [address] | | + + + + + Care Team Providers + +------+ + | Care Asthma Educator Name | Role | Phone | + [...] + + | 05/13/ | Telephone | [facility] | Ivy Sun | Medication Refill; | | 2012 | | [facility] [place] | Rishabh, JUSTYN [address] | | | | | [address] | [place] | | | | | [place] | [address] | | | | | [address] | | | | | | [phone] | | | +--------+ + + + [...] | | | | | [place] | | | | | | [address] | | | | | | | | +--------+---------+ + + + documented as of this encounter Visit Diagnoses + + | Diagnosis | + + | Hyperlipidemia - Primary Other and unspecified hyperlipidemia | + + | Insomnia Insomnia, unspecified | + + documented in this encounter"
--- OUTSIDE RECORDS SUMMARY | ~2019-10-23 | XMS | Encounter Summary ---
Demographics + + + | Address | [address] | | | [place] [address] | + + + | Home Phone [...] Author | [facility] | | | and Rainerana | + + + | Organization | [facility] | | | and [...] [place], [place] | | | | | [address] | | + + + + + | Jelena Hill | ECON | [place] | | | | | [address] | | + + + + + Care Team Providers + +------+ + | Care Herb Digger Name | Role | Phone | + [...] + | 08/19/ | Telephone | [facility] | Ivy Sun | Other | | 2015 | | MEDICINE [place]BRAGATTrish | JUSTYN Keating [address] | | | | | [address] | [place]VE [place], [place] | | | | | [place], [place] | [address] | | | | | [address] | | | | | | [phone] | | | +--------+ + + + [...] [place] | | | | | | [address] | | | | | | | [...]
--- OUTSIDE RECORDS SUMMARY | ~2019-10-23 | XMS | Encounter Summary ---
Demographics + + + | Address | [address] | | | [place] [address] | + + + | Home Phone [...] Author | [facility] | | | and Rainerana | + + + | Organization | [facility] [...] [place], [place] | | | | | [address] | | + + + + + | Jelena Hill | ECON | [place] | | | | | [address] | | + + + + + Care Team Providers + +------+ + | Care Roaster Helper Name | Role | Phone | [...] | 07/12/ | Telephone | [facility] | Reynaldo Astorga, | Appointment | | 2013 | | ORTHOPEDIC SURGERY | [address] [facility] | | | | | [address] [facility] | [place] | | | | | [place] | [address] | | | | | [address] | | | | | | [phone] | | | +--------+ + + + [...]
--- OUTSIDE RECORDS SUMMARY | ~2019-10-23 | XMS | Encounter Summary ---
Demographics + + + | Address | [address] | | | [place] [address] | + + + | Home Phone [...] | Author | [facility] | | | and Rainerana | + + + | Organization | [facility] | | | and [...] [place], [place] | | | | | [address] | | + + + + + | Jelena Hill | ECON | [place] | | | | | [address] | | + + + + + Care Team Providers + +------+ + | Care Sewer Maintenance Supervisor Name | Role | Phone | + +------+ + | Ivy Sun | PCP | | + +------+ + Encounter Details +--------+ + + + + | Date | Type | Department | Care Team | Description | +--------+ + + + + | 05/12/ | Hospital | [facility] | Ivy Sun | Osteopenia; Hx of | | 2013 | Encounter | MED CTR XRAY [address] | L, PORTFOLIO SPECIALIST [address] | compression fracture | | | | [place] | [place]VE [place], [place] | of spine | | | | [place] [address] | [address] | | | | | [phone] | | | +--------+ + + + [...] [place] | | | | | | [address] | | | | | | | [...] At | + + + | [facility] Diagnostic Imaging | CONIFER | | Department [address] [facility] [place] | [facility] | | [ rep ct street[address]] [ rep [facility] | | st zip] Signed | - IMAGING | | | | | Patient Name: LUCIE CARRERA Physician: | | | [id number].[id number] : 1950 Age: 62 Sex: F Unit #: [id number] | | | Exam Date: 05/12/13 Location: [facility] | | | Report #: [id number] Page: | | | %(RAD)RES..mtdd.print.filter("pg") of %(RAD) | | | RES..mtdd.print.filter("tpg") | | | | | | Accession Number: [id number] | | | DEXA CLINICAL HISTORY: OSTEOPENIA. [...] | | | Transcribed Date/Time: 05/12/2013 16:28 Rail Switch Operator: | | | <<Signature on File>> | | | Forest | | | Nathaly Manley MD05/12/13 2205 <Electronically signed by Forest Andresen | | | Vineet JEFFRIES> Forest Manley MD 05/12/13 1426 | | | Rail Switch Operator: Salesvue Kxagehsldqvbx33/16/13 1628 | | | PARESH Butt | | + + + + + + + + | Performing | Address | City/State/Zipcode | Phone Number | | Organization | | | | + + + + + | [address] | [address] | [place] | [phone] | | [facility] | | [address] | | | - IMAGING | | [...]
--- OUTSIDE RECORDS SUMMARY | ~2019-10-23 | XMS | Encounter Summary ---
Demographics + + + | Address | [address] | | | [place] [address] | + + + | Home Phone [...] Author | [facility] | | | and Rainerana | + + + | Organization | [facility] | [...] [place], [place] | | | | | [address] | | + + + + + | Jelena Hill | ECON | [place] | | | | | [address] | | + + + + + Care Team Providers + +------+ + | Care Interventional Neuroradiologist Name | Role | Phone | + [...] T12 | Ivy L, | [address] | | | | | compression | DATA INTEGRATION ARCHITECT [address] | [place], | | | | | fracture, | [address] | [place] | | | | | initial | [place], | [address] | | | | | encounter | [place] [address] | Phone: | | | | | (HCC) | Phone: | [phone] | | | | | Procedures | [phone] | Fax: | | | | | MRI Thoracic | Fax: | [phone] | | | | | Spine w wo | [phone] | | | | | | Contrast [...] T12 | Ivy Keating, | [address] | | | | | compression | DATA INTEGRATION ARCHITECT [address] | [place], | | | | | fracture, | [address] | [place] | | | | | initial | [place], | [address] | | | | | encounter | [place] [address] | Phone: | | | | | (HCC) | Phone: | [phone] | | | | | Procedures | [phone] | Fax: | | | | | MRI Thoracic | Fax: | [phone] | | | | | Spine w wo | [phone] | | | | | | Contrast | | | +--------+--------+ + + + + Encounter Details +--------+ + + + + | Date | Type | Department | Care Team | Description | +--------+ + + + + | 08/01/ | Hospital | [facility] | Ivy Sun | T12 compression | | 2016 | Encounter | MED CTR MRI [address] | L, DATA INTEGRATION ARCHITECT [address] | fracture, initial | | | | [place], | AVE [place], [place] | encounter ([facility]) | | | | [place] [address] | [address] | | | | | [phone] | | | +--------+ + + + [...] | | | | [place] | | | | | | [address] | | | | | | | [...] | | | | PDT | encounter ([facility]) | results section. | + +--------+ + [...] Thoracic MRI July 2015 TECHNIQUE: The | [facility] | | following 3T MR sequences [...] narrow the central canal on provided large aiugq-or-jmon sagittal | | | images through the [...] from imaging of July 2015 and with jenptvyjeon04-72% loss of vertebral | | body height. Previously visible marrow edema at thislevel has resolved. There is new | | central compression deformity of the fjcwbbhrT34 vertebral endplate, with approximate | | 40% [...] central | | canal on provided large aezax-bp-ovxsbsowilbk images through the region. The cervical | [...] [address] | [place] | [phone] | | [facility] | | [address] | | | - IMAGING | | | | + + + + + documented in this encounter Visit Diagnoses + + | Diagnosis | + + | T12 compression fracture, initial encounter (HCC) | + + documented in this encounter"
--- OUTSIDE RECORDS SUMMARY | ~2019-10-23 | XMS | Encounter Summary ---
Demographics + + + | Address | [address] | | | [place] [address] | + + + | Home Phone [...] + + | Author | [facility] | | | and Rainerana | + + + | Organization | [facility] [...] [place], [place] | | | | | [address] | | + + + + + | Jelena Hill | ECON | [place] | | | | | [address] | | + + + + + Care Team Providers + +------+ + | Care Supervisor Tellers Name | Role | Phone | + [...] + | 01/28/ | Refill | [facility] | Reymundo Guillory | Medication Refill | | 2018 | | SLEEP DISORDER [address] | MD Ivy [address] | | | | | [address] [place] | [place] | | | | | [place] [address] | [place] [address] | | | | | [phone] | [phone] | | | | | | | [...] [place] | | | | | | [address] | | | | | | | | +--------+---------+ + + + documented as of this encounter Visit Diagnoses Not on filedocumented in this encounter"
--- OUTSIDE RECORDS SUMMARY | ~2019-10-23 | XMS | Encounter Summary ---
Demographics + + + | Address | [address] | | | [place] [address] | + + + | Home Phone [...] | Author | [facility] | | | and Rainerana | + + + | Organization | [facility] | [...] [place], [place] | | | | | [address] | | + + + + + | Jelena Hill | ECON | [place] | | | | | [address] | | + + + + + Care Team Providers + +------+ + | Care Director Of Materials Management Name | Role | Phone | [...] + + | 08/18/ | Office | [facility] [place] [facility] | Hiren Mai PA | KAMERON on CPAP (Primary | | 2011 | Visit | SLEEP DISORDER [address] | [address] | Dx) | | | | [address] [place] | [place] | | | | | [place] [address] | [address] | | | | | [phone] | | | +--------+---------+ + + + [...] + + + | Blood Pressure | 110/66 | 08/18/2012 3:23 PM | | | | | PDT | | + + + + + | Pulse | 101 | 08/18/2012 3:23 PM | | | | | PDT | | + + + + + | Temperature | - | - | | + + + + + | Respiratory Rate | 16 | 08/18/2012 3:23 PM | | | | | PDT | | + + + + + | Oxygen Saturation | - | - | | + + + + + | Inhaled Oxygen | - | - | | | Concentration | | | | + + + + + | Weight | 121.1 kg (267 lb) | 08/18/2012 3:23 PM | | | | | PDT | | + + + + + | Height | - | - | | + + + + + | Body Mass Index | 41.82 | 08/11/2012 8:10 AM | | | | | PDT | | + + + + + documented in this encounter Progress Notes Hiren Mai PA - 08/18/2012 3:47 PM PDT Subjective: Patient ID: Lucie Miller is a 62 y.o. female. HPI last office visit was: 08/11/2012 date of polysomnography: 07/08/2012 AHI: 13.5 RDI: 21.8 O2%: 88% with 1.2 minutes below 88% Machine type: ResMed S9 with nasal pillows obtained from: [facility] pressure is: 5-14 cm 95%: maxium: CPAP download shows CPAP useage # nights: no download average usage (all nights): average usage (nights used): Lucie had some challenges with getting her CPAP and with getting a mask that works well for her. She has Field and Paykel nasal pillows, but she has a history of being a mouth breat her and was not able to feel comfortable with being forced to breathe through her nose only. This lead her to sleep without her CPAP. She is excited to start using it. We went through each of the settings on the CPAP, to ensure that there is a good understand ing of how to make changes to temperature, humidity and/or the ramp. I also checked her mas k fit. She seemed very uncomfortable with the nasal pillows. I showed her a ResMed Quattro FX full face mask and she felt very comfortable with it. She would like to try sleeping wi th it. We also discussed the results of her sleep study, specifically her apnea and RLS. She was curious about her ferritin level and the possible side effects from her ferric gluconate IV. She returns tomorrow for her second dose. Review of Systems Objective: Physical Exam Assessment: This is well controlled with CPAP. She has not started using her CPAP yet because of probl ems with her mask. Plan: She is to continue with CPAP indefinitely. I have recommended that she [facility] [place] to get a ResMed Quattro FX full face mask. I will follow up again in 1 week, sooner prn. Thirty minutes were spent tauy-oq-rdzs, with the majority of time spent in counseling. Hiren Mai PA-C cc: Ivy Sun, OPERATOR CAVITY PUMP-BC documented in this enco unter Plan of Treatment +--------+---------+ + + + | Date | Type | Specialty | Care Team | Description | +--------+---------+ + + + | 11/23/ | Office | Family Medicine | Ivy Sun | | | 2020 | Visit | | JUSTYN Keating [address] | | | | | | [place] | | | | | | [address] | | | | | | | | +--------+---------+ + + + documented as of this encounter Visit Diagnoses + + | Diagnosis | + + | KAMERON on CPAP - Primary Obstructive sleep apnea (adult) (pediatric) | + + documented in this encounter"
--- OUTSIDE RECORDS SUMMARY | ~2019-10-23 | XMS | Encounter Summary ---
Demographics + + + | Address | [address] | | | [place] [address] | + + + | Home Phone [...] + | Author | [facility] | | | and Rainerana | + + + | Organization | [facility] [...] [place], [place] | | | | | [address] | | + + + + + | Jelena Hill | ECON | [place] | | | | | [address] | | + + + + + [...] | | | 2019 | | [facility] | L, TANKMAN [address] | | | | | [address] | [address]VE [place] | | | | | [place] | [address] | | | | | [address] | | | | | | [phone] | | | +--------+ + + + [...] [place] | | | | | | [address] | | | | | | | [...] LAB | [address] | [place] [address] | [phone] | | [facility] | | | | + + + + + | REFERENCE LAB | [address] [facility] | [place] [address] | [phone] | | [facility] | | | | + + + + + documented in this encounter Visit Diagnoses Not on filedocumented in this encounter"
--- OUTSIDE RECORDS SUMMARY | ~2019-10-23 | XMS | Encounter Summary ---
Demographics + + + | Address | [address] | | | [place] [address] | + + + | Home Phone [...] | Author | [facility] | | | and Rainerana | + + + | Organization | [facility] | | | and Rainerana [...] [place], [place] | | | | | [address] | | + + + + + | Jelena Hill | ECON | [place] | | | | | [address] | | + + + + + Care Team Providers + +------+ + | Care Career Services Director Name | Role | Phone [...] + | 11/20/ | Telephone | [facility] | Ivy Sun | Other | | 2013 | | MEDICINE DEBRAGATTrish | JUSTYN Keating [address] | | | | | [address] | [place], [place] | | | | | [place], [place] | [address] | | | | | [address] | | | | | | [phone] | | | +--------+ + + + [...] [place] | | | | | | [address] | | | | | | | | +--------+---------+ + + + documented as of this encounter Visit Diagnoses Not on filedocumented in this encounter"
--- OUTSIDE RECORDS SUMMARY | ~2019-10-23 | XMS | Encounter Summary ---
Demographics + + + | Address | [address] | | | [place] [address] | + + + | Home Phone [...] | Author | [facility] | | | and Rainerana | + + + | Organization | [facility] | [...] [place], [place] | | | | | [address] | | + + + + + | Jelena Hill | ECON | [place] | | | | | [address] | | + + + + + Care Team Providers + +------+ + | Care Application Development Director Name | Role | Phone | + +------+ + | Ivy Sun | PCP | | + +------+ + Encounter Details +--------+ + + + + | Date | Type | Department | Care Team | Description | +--------+ + + + + | 10/09/ | Hospital | [facility] | Eleazar Mustafa | | | 2018 | Encounter | MED CTR OR INTRA OP | DO Liliana [address] | | | | | [address] | [address] [facility] | | | | | [place], [place] | [place] [address] | | | | | [address] | [phone] | | | | | [phone] | | | +--------+ + + + [...] 0 | | | | (VITAMIN D3) [address] | mouth Once a week. | | [...] [place] | | | | | | [address] | | | | | | | | +--------+---------+ + + + documented as of this encounter Visit Diagnoses Not on filedocumented in this encounter"
--- OUTSIDE RECORDS SUMMARY | ~2019-10-23 | XMS | Encounter Summary ---
Demographics + + + | Address | [address] | | | [place] [address] | + + + | Home Phone [...] + | Author | [facility] | | | and Rainerana | + + + | Organization | [facility] [...] [place], [place] | | | | | [address] | | + + + + + | Jelena Hill | ECON | [place] | | | | | [address] | | + + + + + Care Team Providers + +------+ + | Care Folded Towel Machine Operator Name | Role | Phone [...] back | Calderon E, | [address] | | | | | pain | PA-C [address] | [place], | | | | | Radiculopath | [address] | [place] | | | | | y, lumbar | [address] | [address] | | | | | region | [place], | Phone: | | | | | Procedures | [place] [address] | [phone] | | | | | MRI Lumbar | Phone: | Fax: | | | | | Spine wo | [phone] | [phone] | | | | | Contrast ID | Fax: | | | | | | MRI, LUMBAR | [phone] | | | | | | SPINE [...] | | Required | | compression | EDUCATIONAL SPEECH LANGUAGE CLINICIAN [address] | [address] | | | | | fracture, | [address] | [address] | | | | | initial | [place], | [place] | | | | | encounter | [place] [address] | [address] Phone: | | | | | ([facility]) | Phone: | [phone] | | | | | | [phone] | Fax: | | | | | | Fax: | [phone] | | | | | | [phone] | | +--------+ + + + + + Encounter Details +--------+---------+ + + + | Date | Type | Department | Care Team | Description | +--------+---------+ + + + | 09/05/ | Office | [facility] | Calderon Shaw, | Lumbar radiculopathy | | 2016 | Visit | NEUROSURGERY [address] | PA-C [address] | (Primary Dx); Low | | | | [address] | [address] [place] | back pain | | | | [place], [place] | [facility] [address] | potentially | | | | [address] | [phone] | associated with | | | | [phone] | | spinal stenosis; T12 | | [...] in this encounter Progress Notes Sierra Eng, Financial Cost Analyst - 09/05/2016 9:35 AM PSTFormatting of this note might b e different from the original. JAVON Rowe [address] [facility], [address] [place] [address] FAX: NEUROSURGERY HISTORY AND PHYSICAL EXAMINATION CHIEF [...] has no apparent deficits with short or superintendent container terminal memory. CRANIAL NERVES: Fundoscopic Exam: The optic [...] Intrinsics 5 5 Ulnar Intrinsics 5 5 Faculty Instructor Strength 5 5 Hip Flexion 5 5 [...] [place] | | | | | | [address] | | | | | | | [...] | + + + + + | [facility] | [address] | [place] | [phone] | | [facility] | | [address] | | | - IMAGING | | | | + + + + + MRI Lumbar Spine wo Contrast (09/24/2016 11:57 AM PST) + + | Specimen | + + | | + + + + + | Narrative | Performed At | + + + | MRI LUMBAR SPINE WITHOUT CONTRAST: 09/24/2016 11:10 AM CLINICAL | [facility] | | HISTORY: Low back pain with radicular symptoms COMPARISON: | [facility] | | Thoracic MRI 08/01/2016; lumbar radiographs 07/16/2016 TECHNIQUE: In | [facility] | | the 3T scanner multiplanar, multisequence [...] ST. | [address] | [place], [place] | [phone] | | [facility] | | [address] | | | - IMAGING | | [...]
--- OUTSIDE RECORDS SUMMARY | ~2019-10-23 | XMS | Encounter Summary ---
Demographics + + + | Address | [address] | | | [place] [address] | + + + | Home Phone [...] + | Author | [facility] | | | and Rainerana | + + + | Organization | [facility] | | | and Rainerana [...] [place], [place] | | | | | [address] | | + + + + + | Jeelna Hill | ECON | [place] | | | | | [address] | | + + + + + Care Team Providers + +------+ + | Care Metal Bed Assembler Name | Role | Phone | [...] Services | Medicine | Obstructive | Ivy Keaitng, | K[facility] | | | Required | | sleep apnea | LEAD SYSTEMS ENGINEER [address] | Disorder [address] | | | | | | [address] | [address] [place] | | | | | | [place], | [place], | | | | | | [place] [address] | [place] [address] | | | | | | Phone: | Phone: | | | | | | [phone] | [phone] | | | | | | Fax: | Fax: | | | | | | [phone] | [phone] | +--------+ + + + + + Encounter Details +--------+---------+ + + + | Date | Type | Department | Care Team | Description | +--------+---------+ + + + | 08/19/ | [facility] | [facility] | Reymundo Guillory | NO SHOW (Primary Dx) | | 2017 | Visit | SLEEP DISORDER [address] | MD Ivy [address] | | | | | [address] [place] | [address] [place] | | | | | [place] [address] | [place] [address] | | | | | [phone] | [phone] | | | | | | | [...] [place] | | | | | | [address] | | | | | | | | +--------+---------+ + + + documented as of this encounter Visit Diagnoses + + | Diagnosis | + + | No Show - Primary Code used for vists where the patient is not seen | + + documented in this encounter"
--- OUTSIDE RECORDS SUMMARY | ~2019-10-23 | XMS | Encounter Summary ---
Demographics + + + | Address | [address] | | | [place] [address] | + + + | Home Phone [...] Author | [facility] | | | and Rainerana | + + + | Organization | [facility] [...] [place], [place] | | | | | [address] | | + + + + + | Jelena Hill | ECON | [place] | | | | | [address] | | + + + + + Care Team Providers + +------+ + | Care Transport Aide Name | Role | Phone | [...] + | 10/07/ | Refill | [facility] | Ivy Sun | Medication Refill | | 2017 | | MEDICINE GLEN ELDER | Rishabh, JUSTYN [address] | | | | | [address] | [place] | | | | | [place] | [address] | | | | | [address] | | | | | | [phone] | | | +--------+--------+ + + + [...] [place] | | | | | | [address] | | | | | | | | +--------+---------+ + + + documented as of this encounter Visit Diagnoses Not on filedocumented in this encounter"
--- OUTSIDE RECORDS SUMMARY | ~2019-10-23 | XMS | Encounter Summary ---
Demographics + + + | Address | [address] | | | [place] [address] | + + + | Home Phone [...] + + + | Author | [facility] | | | and Rainerana | + + + | Organization | [facility] [...] [place], [place] | | | | | [address] | | + + + + + | Jelena Hill | ECON | [place] | | | | | [address] | | + + + + + Care Team Providers + +------+ + | Care Ammunition Assembly Laborer Name | Role | Phone | [...] + + | 01/03/ | Office | [facility] | Calderon Shaw, | Spondylolisthesis of | | 2017 | Visit | NEUROSURGERY [address] | PA-C [address] | lumbar region | | | | [address] | [address] [place] | (Primary Dx); Lumbar | | | | [place], [place] | [place] [address] | facet arthropathy; | | | | [address] | [phone] | Lumbar spinal | | | | [phone] | | stenosis | +--------+---------+ + + [...] original. 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 CRANIAL NERVES: Fundoscopic Exam: The optic [...] Intrinsics 5 5 Ulnar Intrinsics 5 5 Lunch Counter Manager Strength 5 5 Hip Flexion 5 5 [...]
--- OUTSIDE RECORDS SUMMARY | ~2019-10-23 | XMS | Encounter Summary ---
Demographics + + + | Address | [address] | | | [place] [address] | + + + | Home Phone [...] | Author | [facility] | | | and Rainerana | + + + | Organization | [facility] | | | [...] [place], [place] | | | | | [address] | | + + + + + | Jelena Hill | ECON | [place] | | | | | [address] | | + + + + + Care Team Providers + +------+ + | Care Inside Sales Advertising Executive Name | Role | Phone | + +------+ + | Ivy Sun | PCP | | + +------+ + Encounter Details +--------+ + + + + | Date | Type | Department | Care Team | Description | +--------+ + + + + | 06/25/ | Hospital | [facility] | Ivy Sun | | | 2011 | Encounter | MED CTR XRAY [address] | L, 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 [address] | | | | | [place] | AVE [place], [place] | | | | | [place] [address] | [address] | | | | | [phone] | | | +--------+ + + + [...] | | 11 | 2 | | [address] UNITS capsule | mouth once weekly | [...] [place] | | | | | | [id number] | | | | | | | [...] Performed At | + + + | [facility] | OSIR[place] MENDEZ | | [address] [facility] [place] | [facility] | | EXERCISE SESTAMIBI STRESS TEST, [...] Transcribed Date/Time: | | | 06/25/2012 16:12 Blow Down Helper: <Electronically Signed | | | by Brianna Curiel MD [facility]> 06/26/12 0636 | | + + + + + | Procedure Note | + + | Nic Sheffield Conversion - 12/04/2013 5:56 PM [facility] | | Diagnostic Imaging Department [address] [place] [address] | | EXERCISE SESTAMIBI STRESS TEST, 06/25/2012 [...] | | Signed by Brianna Curiel MD [facility]> 06/26/12 0636 | | | |IMPRESSION: [...] 15:24 | |Transcribed Date/Time: 06/25/2012 16:12 | |Blow Down Helper: | |<Electronically Signed by Brianna Curiel MD [facility]> 06/26/12 0636 | + + + [...]
--- OUTSIDE RECORDS SUMMARY | ~2019-10-23 | XMS | Encounter Summary ---
Demographics + + + | Address | [address] | | | [place] [address] | + + + | Home Phone [...] | [facility] | | | and Rainerana | + + + | Organization | [facility] | | | and [...] [place], [place] | | | | | [address] | | + + + + + | eJlena Hill | ECON | [place] | | | | | [address] | | + + + + + Care Team Providers + +------+ + | Care Pony Trimmer Name | Role | Phone | [...] + + | 03/06/ | Office | [facility] | Monika Guerrero, | Type 2 diabetes | | 2018 | Visit | MEDICINE [place] | 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 This note is dictated using [employer] voice recognition software. This note was dictated [...] | | | | | [place] | | | | | | [id number] | | | | | | | [...] [address] | [place] | [phone] | | [facility] | | [address] | | | - LABORATORY | | [...]
--- OUTSIDE RECORDS SUMMARY | ~2019-10-23 | XMS | Encounter Summary ---
Demographics + + + | Address | [address] | | | [place] [address] | + + + | Home Phone [...] | [facility] | | | and Rainerana | + + + | Organization | [facility] | [...] [place], [place] | | | | | [address] | | + + + + + | Jelena Hill | ECON | [place] | | | | | [address] | | + + + + + Care Team Providers + +------+ + | Care Table Lever Operator Name | Role | Phone | + +------+ + | Ivy Sun | PCP | | + +------+ + Encounter Details +--------+ + + + + | Date | Type | Department | Care Team | Description | +--------+ + + + + | 10/08/ | Abstract | [facility] | Ivy Sun | | | 2018 | | [facility] | L, 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
--- OUTSIDE RECORDS SUMMARY | ~2019-10-23 | XMS | Encounter Summary ---
Demographics + + + | Address | [address] | | | [place] [address] | + + + | Home Phone [...] Author | [facility] | | | and Rainerana | + + + | Organization | [facility] | | [...] [place], [place] | | | | | [address] | | + + + + + | Jelena Hill | ECON | [place] | | | | | [address] | | + + + + + Care Team Providers + +------+ + | Care Blind Eyeletter Name | Role | Phone | + [...] + + | 04/08/ | Telephone | [facility] | Ivy Sun | Diabetes Education | | 2013 | | MEDICINE [place] | JUSTYN Keating [address] | | | | | [address] | AVE [place], [place] | | | | | [place], [place] | [address] | | | | | [address] | | | | | | [phone] | | | +--------+ + + + [...] [place] | | | | | | [address] | | | | | | | | +--------+---------+ + + + documented as of this encounter Visit Diagnoses Not on filedocumented in this encounter"
--- OUTSIDE RECORDS SUMMARY | ~2019-10-23 | XMS | Encounter Summary ---
Demographics + + + | Address | [address] | | | [place] [address] | + + + | Home Phone [...] Author | [facility] | | | and Rainerana | + + + | Organization | [facility] | [...] [place], [place] | | | | | [address] | | + + + + + | Jelena Hill | ECON | [place], [place] | | | | | [address] | | + + + + + Care Team Providers + +------+ + | Care Fabrics And Material Cutter Name | Role | Phone | [...] | | | | 04/06/ | | [place], | | | | 1989 | | [place] [address] | | | | | | [phone] | | | +--------+ + + + [...] [place] | | | | | | [address] | | | | | | | | +--------+---------+ + + + documented as of this encounter Visit Diagnoses Not on filedocumented in this encounter"
--- OUTSIDE RECORDS SUMMARY | ~2019-10-23 | XMS | Encounter Summary ---
Demographics + + + | Address | [address] | | | [place] [address] | + + + | Home Phone [...] | Author | [facility] | | | and Rainerana | + + + | Organization | [facility] [...] [place], [place] | | | | | [address] | | + + + + + | Jelena Hill | ECON | [place] | | | | | [address] | | + + + + + Care Team Providers + +------+ + | Care Molder Helper Name | Role | Phone | [...] | | | | | | | [place] | | | | | | | [...] | | | | | [address] | [place], [place] | | | | | [place], [place] | [address] | | | | | [address] | | | | | | [phone] | | | +--------+ + + + [...] [place] | | | | | | [address] | | | | | | | [...]
--- OUTSIDE RECORDS SUMMARY | ~2019-10-23 | XMS | Encounter Summary ---
Demographics + + + | Address | [address] | | | [place] [address] | + + + | Home Phone [...] | Author | [facility] | | | and Rainerana | + + + | Organization | [facility] | | [...] [place], [place] | | | | | [address] | | + + + + + | Jelena Hill | ECON | [place] | | | | | [address] | | + + + + + Care Team Providers + +------+ + | Care Gas Burner Operator Name | Role | Phone | [...] + + | 09/28/ | Telephone | [facility] | Logan Wolf | Appointment | | 2013 | | CARDIOLOGY [address] | MD Missael [address] | | | | | [place], | [place] [place] [address] [place] | | | | | [place] [address] | [place] [address] | | | | | [phone] | [phone] | | | | | | | [...]
--- OUTSIDE RECORDS SUMMARY | ~2019-10-23 | XMS | Encounter Summary ---
Demographics + + + | Address | [address] | | | [place] [address] | + + + | Home Phone [...] | Author | [facility] | | | and Rainerana | + + + | Organization | [facility] [...] [place], [place] | | | | | [address] | | + + + + + | Jelena Hill | ECON | [place] | | | | | [address] | | + + + + + Care Team Providers + +------+ + | Care Distribution Designer Name | Role | Phone | [...] + | 09/19/ | Telephone | [facility] | Ivy Sun | Referral | | 2016 | | MEDICINE [place] | JUSTYN [address]ating [address] | | | | | [address] | [place], [place] | | | | | [place], [place] | [address] | | | | | [address] | | | | | | [phone] | | | +--------+ + + + [...] [place] | | | | | | [address] | | | | | | | | +--------+---------+ + + + documented as of this encounter Visit Diagnoses Not on filedocumented in this encounter"
--- OUTSIDE RECORDS SUMMARY | ~2019-10-23 | XMS | Encounter Summary ---
Demographics + + + | Address | [address] | | | [place] [address] | + + + | Home Phone [...] | Author | [facility] | | | and Rainerana | + + + | Organization | [facility] | | [...] [place], [place] | | | | | [address] | | + + + + + | Jelena Hill | ECON | [place] | | | | | [address] | | + + + + + Care Team Providers + +------+ + | Care Plc Programmer Name | Role | Phone | [...] back | Calderon E, | [address] | | | | | pain | PA-C [address] | [place], | | | | | Radiculopath | [address] | [place] | | | | | y, lumbar | [address] | [address] | | | | | region | [place], | Phone: | | | | | Procedures | [place] [address] | [phone] | | | | | MRI Lumbar | Phone: | Fax: | | | | | Spine wo | [phone] | [phone] | | | | | Contrast [place] | Fax: | | | | | | MRI, LUMBAR | [phone] | | | | | | SPINE [...] back | Calderon E, | [address] | | | | | pain | PA-C [address] | [place], | | | | | Radiculopath | [address] | [place] | | | | | y, lumbar | [address] | [address] | | | | | region | [place], | Phone: | | | | | Procedures | [place] [address] | [phone] | | | | | MRI Lumbar | Phone: | Fax: | | | | | Spine wo | [phone] | [phone] | | | | | Contrast [place] | Fax: | | | | | | MRI, LUMBAR | [phone] | | | | | | SPINE | | | +--------+--------+ + + + + Encounter Details +--------+ + + + + | Date | Type | Department | Care Team | Description | +--------+ + + + + | 09/24/ | Hospital | [facility] | Calderon Shaw, | Lumbar | | 2016 | Encounter | MED CTR MRI [address] | PA-C [address] | radiculopathy; Low | | | | [place], | [address] [place] | back pain | | | | [place] [address] | [place] [address] | potentially | | | | [phone] | [phone] | associated with | | | | [...] [address] | [place] | [phone] | | [facility] | | [address] | | | - IMAGING | | | | + + + + + documented in this encounter Visit Diagnoses + + | Diagnosis | + + | Lumbar radiculopathy Thoracic or lumbosacral neuritis or radiculitis, unspecified | + + | Low back pain potentially associated with spinal stenosis | + + documented in this encounter"
--- OUTSIDE RECORDS SUMMARY | ~2019-10-23 | XMS | Encounter Summary ---
Demographics + + + | Address | [address] | | | [place] [address] | + + + | Home Phone [...] | [facility] | | | and Rainerana | + + + | Organization | [facility] [...] [place], [place] | | | | | [address] | | + + + + + | Jelena Hill | ECON | [place] | | | | | [address] | | + + + + + Care Team Providers + +------+ + | Care Therapy Aide Name | Role | Phone | [...] + + | 08/29/ | Office | [facility] | Ivy Sun | Welcome to Medicare | | 2017 | Visit | MEDICINE [place] | L, JUSTYN [address] | preventive visit | | | | [address] | [place], [place] | (Primary Dx); | | | | [place] | [address] | Routine history and | | | | [address] | | physical examination | | | | [phone] | | of adult; OAB | | [...] encounter Patient Instructions Patient Instructions Dea Cevallos, Seismograph Shooter - 09/02/2017 1:41 PM PSTFormat ting of [...] llectomy. She has her mammogram scheduled at [facility] in [facility]. Health Risk Assessment The patient or their surrogate filled out the HRA; their responses are included here: (From the Medicare Wellness Visit tab in Flowsheets; printable questionnaire for [facility] and [employer] Medicare) GENERAL HEALTH 1. [...] Current Medicare suppliers [employer] - [place] - [address] [place] [address] [facility] - [facility] [place] - [address] [place] [address] Immunizations Immunization History Administered Date(s) Administered INFLUENZA [...] following health maintenance items are reviewed in [facility] and correct as of today: Health [...] If you have a designated health care chemical sales representative, give their name and contact informa [...] has been changed since signin Order Audit Switzer Calcium Carb-Cholecalciferol (CALCIUM 1000 + D) 1000-800 MG-UNIT TABS (Taking) Take 1 tab let by mouth Daily. Number of times this order has been changed since signin Order Audit Switzer FreeStyle Lancets MISC (Taking) Test blood sugar twice daily. 790.29 Number of times this order has been changed since signin Order Audit Switzer gabapentin (NEURONTIN) 600 MG tablet (Taking) Take 1 tablet by mouth nightly. glucose blood test strips (FREESTYLE LITE) strip (Taking) Test blood sugar twice daily . 790.29 Number of times this order has been changed since signin Order Audit Switzer lisinopril (PRINIVIL, ZESTRIL) 5 mg tablet (Taking) [...] has been changed since signin Order Audit Switzer UNCODED MEDICATION (Taking) Wear at all times while sleeping. 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
--- OUTSIDE RECORDS SUMMARY | ~2019-10-23 | XMS | Encounter Summary ---
Demographics + + + | Address | [address] | | | [place] [address] | + + + | Home Phone | | + + + | Preferred Language | Unknown | + + + | Marital Status | Single | + + + | Yarsanism Affiliation | [id number] | + + + | Race | Unknown | + + + | Ethnic Group | Unknown | + + + Author + + + | Author | [facility] | | | and Rainerana | + + + | Organization | [facility] | | | and [...] [place], [place] | | | | | [address] | | + + + + + | Jelena Hill | ECON | [place], [place] | | | | | [address] | | + + + + + Care Team Providers + +------+ + | Care Schedule Manager Name | Role | Phone | [...] + | 04/10/ | Clinical | [facility] | Reymundo Guillory | KAMERON (obstructive | | 2018 | Support | SLEEP DISORDER [address] | MD Ivy [address] | sleep apnea) | | | | [address] [place] | [address] [place] | (Primary Dx) | | | | [place] [address] | [place] [address] | | | | | [phone] | [phone] | | | | | | | [...] in this encounter Progress Notes Otf Beltre, Deefarmbuy Tech - 04/10/2018 9:00 AM PDTFormatting of [...] [place] | | | | | | [address] | | | | | | | | +--------+---------+ + + + documented as of this encounter Visit Diagnoses + + | Diagnosis | + + | KAMERON (obstructive sleep apnea) - Primary Obstructive sleep apnea (adult) (pediatric) | + + documented in this encounter
--- OUTSIDE RECORDS SUMMARY | ~2019-10-23 | XMS | Encounter Summary ---
Demographics + + + | Address | [address] | | | [place] [address] | + + + | Home Phone [...] | Author | [facility] | | | and Rainerana | + + + | Organization | [facility] | [...] [place], [place] | | | | | [address] | | + + + + + | Jelena Hill | ECON | [place] | | | | | [address] | | + + + + + Care Team Providers + +------+ + | Care Ultrasound Manager Name | Role | Phone | + +------+ + | Ivy Sun | PCP | | + +------+ + Encounter Details +--------+ + + + + | Date | Type | Department | Care Team | Description | +--------+ + + + + | 02/23/ | Hospital | [facility] | Ivy Sun | | | 2010 | Encounter | MED CTR XRAY [address] | L, CLIENT SUPPORT ASSOCIATE [address] | | | | | [place] | [address] [place], [place] | | | | | [place] [address] | [address] | | | | | [phone] | | | +--------+ + + + [...] [place] | | | | | | [id number] | | | | | | | [...] Performed At | + + + | [facility] Diagnostic Imaging Department | [facility] | | [address] [facility] | [facility] | | RIGHT ANKLE CLINICAL | DIAG [...] Transcribed | | | Date/Time: 02/23/2011 14:56 Decorator Lighting Fixtures: | | | <Electronically Signed by Yosvany Reeves MD> 02/24/11 0812 | | + + + + + | Procedure Note | + + | Nic Sheffield Conversion - 12/04/2013 2:49 PM [facility] | | Diagnostic Imaging Department | | [address] [facility] | | | | | | [...] | Transcribed Date/Time: 02/23/2011 14:56 | | Decorator Lighting Fixtures: | | <Electronically Signed by Yosvany Reeves [...]
--- OUTSIDE RECORDS SUMMARY | ~2019-10-23 | XMS | Encounter Summary ---
Demographics + + + | Address | [address] | | | [place] [address] | + + + | Home Phone [facility] | | | and Ranierana | + + + | Organization | [...] [place], [place] | | | | | [address] | | + + + + + | Jelena Hill | ECON | [place], [place] | | | | | [address] | | + + + + + Care Team Providers + +------+ + | Care Vegetable Picker Name | Role | Phone | [...] | | | | | uncertain | EMAIL ADMINISTRATOR [address] | EMAIL ADMINISTRATOR [address] | | | | | behavior of | [address] | | | | | skin | [place], | [place], | | | | | Procedures | [place] [address] | [place] [address] | | | | | HI SHAV SKIN | Phone: | Phone: | | | | | LES 6-10MM | [phone] | [phone] | | | | | TRUNK,ARM,LE | Fax: | Fax: | | | | | G | [phone] | [phone] | +--------+--------+ + + + + Encounter [...] [address] | [place] [place] | of skin (Primary Dx) | | | | [place] | [address] | | | | | [address] | | | | | | [phone] | | | +--------+ + + + [...] a problem: Bleeding that soaks the dressing Coffeen fluid weeping from the wound Increased drainage [...] a loss of appetite Date Last Reviewed: 04/27/201719990263-8072 [employer]. [address] [place] [address]. All righ ts reserved. This information is [...] has been changed since signin Order Audit Paulina Blood Glucose Calibration (OT ULTRA/FASTTK CNTRL SOLN) SOLN (Taking) Use to calibrate glu cometer Number of times this order has been changed since signin Order Audit Paulina Blood Glucose Monitoring Suppl (ONE TOUCH ULTRA SYSTEM KIT) w/Device KIT (Taking) Use to check blood sugars 3 times weekly. Number of times this order has been changed since signin Order Audit Paulina cholecalciferol (CHOLECALCIFEROL) 2000 units TABS (Taking) Take 2,000 Units by mouth Tresa y. ferrous sulfate 325 mg tablet (Taking) TAKE ONE TABLET BY MOUTH TWICE A DAY Number of times this order has been changed since signin Order Audit [place]ina gabapentin (NEURONTIN) 600 MG tablet (Taking) TAKE ONE TABLET BY MOUTH NIGHTLY Number of times this order has been changed since signin Order Audit Paulina glucose blood test strips (ONE TOUCH ULTRA TEST) strip (Taking) Test fasting 3 times w eekly, and check 30 min pre and 2 hours post main meal Number of times this order has been changed since signin Order Audit [place]ina lisinopril (PRINIVIL, ZESTRIL) 5 mg tablet (Taking) TAKE ONE TABLET BY MOUTH DAILY Number of times this order has been changed since signin Order Audit Paulina nortriptyline (PAMELOR) 10 MG capsule (Taking) TAKE 3 CAPSULES BY MOUTH NIGHTLY Number of times this order has been changed since signin Order Audit Paulina ONE TOUCH ULTRASOFT LANCETS MISC (Taking) Use to check blood sugars 3 times a week Number of times this order has been changed since signin Order Audit [place]ina oxybutynin (DITROPAN-XL) 10 MG 24 hr tablet (Taking) Take 1 tablet by mouth Daily. Number of times this order has been changed since signin Order Audit Paulina PARoxetine (PAXIL) 40 MG tablet (Taking) TAKE ONE TABLET BY MOUTH DAILY Number of times this order has been changed since signin Order Audit [place]ina rOPINIRole (REQUIP) 2 MG tablet (Taking) TAKE ONE TABLET BY MOUTH NIGHTLY Number of times this order has been changed since signin Order Audit Paulina simvastatin (ZOCOR) 10 mg tablet (Taking) TAKE ONE TABLET BY MOUTH ONCE NIGHTLY Number of times this order has been changed since signin Order Audit Paulina tiZANidine (ZANAFLEX) 2 MG tablet (Taking) TAKE ONE TABLET (2MG) BY MOUTH EVERY 6 TO 8 HO URS NEEDED FOR MUSCLE SPASMS. Number of times this order has been changed since signin Order Audit Paulina UNABLE TO FIND (Taking) Med Name: Resmed AirSense 10 autoset CPAP: 13-20cm while sleeping . UNCODED MEDICATION (Taking) Diagnosis: Obstructive Sleep Apnea ICD-9: 327.23 Length of Need: 99 Months Number of times this order has been changed since signin Order Audit Paulina UNCODED MEDICATION (Taking) Wear at all times while sleeping. Number of times this order has been changed since signin Order Audit Paulina Past Medical History She has a past [...] LABORATORY: The technical component was performed by [facility] | | | [facility], [place] [address] (Assistant Professor Of Chemistry: | | | Nadia Medina MD; CLIA# [id number]). Professional interpretation was | | | performed by [facility], [place], [address] | | | [address] [place] [id number] (Assistant Professor Of Chemistry: Roberto Carlos | | | Miles Linn MD; CLIA# [id number]). Diagnostician: Roberto Carlos Linn | | | [...]
--- OUTSIDE RECORDS SUMMARY | ~2019-10-23 | XMS | Encounter Summary ---
Demographics + + + | Address | [address] | | | [place] [address] | + + + | Home Phone [...] | Located Within [facility] | | | and Rainerana | + + + | Organization | [facility] | | | and [...] [place], [place] | | | | | [address] | | + + + + + | Jelena Hill | ECON | [place] | | | | | [address] | | + + + + + Care Team Providers + +------+ + | Care Screen Room Operator Name | Role | Phone | + +------+ + | Ivy Sun | PCP | | + +------+ + Encounter Details +--------+ + + + + | Date | Type | Department | Care Team | Description | +--------+ + + + + | 04/12/ | Hospital | [facility] | Ivy Sun | Postmenopausal | | 2014 | Encounter | MED CTR ULTRASOUND | L, PROGRAM RESEARCH SPECIALIST [address] | vaginal bleeding | | | | [address] [place] | [address] [place], [place] | | | | | [place], [place] | [address] | | | | | [address] | | | | | | [phone] | Austin Culver | | | | [...] [place] | | | | | | [address] | | | | | | | [...] + | MISCELLANEOUS LAB | | | [phone] | + +---------+ + + | MISCELANIOUS LAB | | | [phone] | + +---------+ + + documented in this encounter Visit Diagnoses + + | Diagnosis | + + | Postmenopausal vaginal bleeding Postmenopausal bleeding | + + documented in this encounter"
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
--- OUTSIDE RECORDS SUMMARY | ~2019-10-23 | XMS | Encounter Summary ---
Demographics + + + | Address | [address] | | | [place] [address] | + + + | Home Phone [...] Author | [facility] | | | and Rainerana | + + + | Organization | [facility] | | | and Rainerana | [...] [place], [place] | | | | | [address] | | + + + + + | Jelena Hill | ECON | [place] | | | | | [address] | | + + + + + Care Team Providers + +------+ + | Care Claims Adjustor Name | Role | Phone | + [...] Description | +--------+--------+ + + + | 02/27/ | Refill | [facility] | Ivy Sun | Medication Refill | | 2015 | | MEDICINE [place] | Rishabh, JUSTYN [address] | | | | | [address] | [place] | | | | | [place] | [address] | | | | | [address] | | | | | | [phone] | | | +--------+--------+ + + + [...] [place] | | | | | | [address]2882 | | | | | | | | +--------+---------+ + + + documented as of this encounter Visit Diagnoses Not on filedocumented in this encounter"
--- OUTSIDE RECORDS SUMMARY | ~2019-10-23 | XMS | Encounter Summary ---
Demographics + + + | Address | [address] | | | [place] [address] | + + + | Home Phone [...] | Author | [facility] | | | and Rainerana | + + + | Organization | [facility] | [...] [place], [place] | | | | | [address] | | + + + + + | Jelena Hill | ECON | [place], [place] | | | | | [address] | | + + + + + Care Team Providers + +------+ + | Care Dumpster Operator Name | Role | Phone | + +------+ + | Ivy Sun | PCP | | + +------+ + Reason for Visit + + + | Reason | Comments | + + + | Appointment | MRI | + + + Encounter Details +--------+ + + + + | Date | Type | Department | Care Team | Description | +--------+ + + + + | 07/26/ | Telephone | [facility] | Ivy Sun | Appointment (MRI) | | 2015 | | MEDICINE [place] | JUSTYN Keating [address] | | | | | [address] | [address] [place] | | | | | [place] | [address] | | | | | [address] | | | | | | [phone] | | | +--------+ + + + [...]
--- OUTSIDE RECORDS SUMMARY | ~2019-10-23 | XMS | Encounter Summary ---
Demographics + + + | Address | [address] | | | [place] [address] | + + + | Home Phone [...] + + | Author | [facility] | | | and Rainerana | + + + | Organization | [facility] | | | and Rainerana [...] [place], [place] | | | | | [address] | | + + + + + | Jelena Hill | ECON | [place] | | | | | [address] | | + + + + + Care Team Providers + +------+ + | Care Auto Body Worker Name | Role | Phone | [...] CURETTAGE/ | | | | [address] | [address] [place] | HYSTEROSCOPY | | | | [place], [place] | [place] [address] | | | | | [address] | [phone] | | | | | [phone] | | | +--------+---------+ + + + [...] | | | | | | insulin ([facility]), | | | | | | [...] | | | | | | insulin ([facility]), | | | | | | [...] 0 | | | | (VITAMIN D3) 23890 | mouth Once a week. | | [...] [place] | | | | | | [address] | | | | | | | [...] | 0.98 | 0.60 - 1.30 | [place] | | | | | mg/dL | [facility] | | | | | | [facility]ICAL | | | | | | CENTER - | | | | | | LABORATORY | | + + + + + + | eGFR if not | 57 (L)Comment: | >=60 | [facility] | | | | GLOMERULAR FILTRATION | mL/min/1.73m2 | [facility] | | | GREEK | RATE,ESTIMATED | | MEDICAL | | | | mL/min/1.77x9Nzec than | | CENTER - | | [...] [address] | [place] | [phone] | | [facility] | | [address] | | | - LABORATORY | | [...] St | [place] | | | [facility] | | [address] | | | - BLOOD BANK | [...] ST. | [address] | [place], [place] | [phone] | | [facility] | | [address] | | | - LABORATORY | | | | + + + + + Surgical Pathology Exam (11/03/2018 12:00 AM PST) + + | Specimen | + + | | + + + + + | Narrative | Performed At | + + + | SPECIMEN(S): A ENDOCERVICAL CURETTINGS SPECIMEN(S): B ENDOMETRIAL | [facility] | | CURETTINGS SPECIMEN SOURCE: A. ENDOCERVICAL CURETTINGS B. | INCYTE | | ENDOMETRIAL CURETTINGS CLINICAL HISTORY: N95.0 (postmenopausal | | | bleeding) FINAL PATHOLOGIC DIAGNOSIS: A. Endocervix, curettage: | | | - Fragments of glandular endocervical mucosa, negative for | | | dysplasia. B. Endometrium, curettage: - Endometrial polyps. - | | | Negative for dysplasia or malignancy. DD:[facility]:[id number] | | | MICROSCOPIC EXAMINATION: Histologic sections [...] | The technical component was performed by [facility], [address] | | | [facility] [address] (Assembler Engine: Nadia Medina MD; | | | CLIA# [id number]). Professional interpretation was performed by | | | [facility], [facility], [address] [place] [address] | | | [place] [address] (Assembler Engine: Kody Willingham MD; | | | CLIA# [id number]). Diagnostician: Kody Willingham MD | | | [...]
--- OUTSIDE RECORDS SUMMARY | ~2019-10-23 | XMS | Encounter Summary ---
Demographics + + + | Address | [address] | | | [place] [address] | + + + | Home Phone | | + + + | Preferred Language | Unknown | + + + | Marital Status | Single | + + + | Temple Affiliation | 1077 | + + + | Race | Unknown | + + + | Ethnic Group | Unknown | + + + Author + + + | Author | [facility] | | | and Rainerana | + + + | Organization | [facility] | [...] [place], [place] | | | | | [address] | | + + + + + | Jelena Hill | ECON | [place] | | | | | [address] | | + + + + + Care Team Providers + +------+ + | Care Family Law Mediator Name | Role | Phone | + [...] + + | Closed | Specialty | Obstetrics | Diagnoses | Sun, | [place] ST[facility] | | | Services | and | | Ivy Keating, | CLINIC OB | | | Required | Gynecology | Postmenopaus | SCREEN CUTTER AND TRIMMER [address] | SPA COORDINATOR & | | | | | al bleeding | [address] | INFERTILITY | | | | | Thickened | [place], | GROUP [address] | | | | | endometrium | [place] [address] | [address] | | | | | | Phone: | [place], | | | | | | [phone] | [place] [address] | | | | | | Fax: | Phone: | | | | | | [phone] | [phone] | | | | | | | Fax: | | | | | | | [phone] | +--------+ + + + + + Reason for Visit + + + | Reason | Comments | + + + | Appointment | | + + + Encounter Details +--------+ + + + + | Date | Type | Department | Care Team | Description | +--------+ + + + + | 04/19/ | Telephone | [facility] | Ivy Sun | Appointment | | 2013 | | MEDICINE [place] | L, JUSTYN [address] | | | | | [address] | AVE [place], [place] | | | | | [place], [place] | [address] | | | | | [address] | | | | | | [phone] | | | +--------+ + + + [...] [place] | | | | | | [address] | | | | | | | | +--------+---------+ + + + + + +--------+ + + | Name | Type | Priori | Associated Diagnoses | Order Schedule | | | | ty | | | + + +--------+ + + | [place] | Outpatient | Routin | Postmenopausal | Ordered: 04/19/2014 | | Clinic MANAGER [employer] & | Referral | e | bleeding Thickened | | | [facility] - | | | endometrium | | | AMB Referral | | | | | + + +--------+ + + documented as of this encounter Visit Diagnoses + + | Diagnosis | + + | Postmenopausal bleeding - Primary | + + | Thickened endometrium Nonspecific (abnormal) findings on radiological and other | | examination of genitourinary organs | + + documented in this encounter"
--- OUTSIDE RECORDS SUMMARY | ~2019-10-23 | XMS | Encounter Summary ---
Demographics + + + | Address | [address] | | | [place] [address] | + + + | Home Phone [...] + + + | Author | [facility] | | | and Rainerana | + + + | Organization | [facility] | | [...] [place], [place] | | | | | [address] | | + + + + + | Jelena Hill | ECON | [place] | | | | | [address] | | + + + + + Care Team Providers + +------+ + | Care Kitchen Food Server Name | Role | Phone | + [...] + | 02/27/ | Refill | [facility] | Ivy Sun | Medication Refill | | 2015 | | MEDICINE [place] | Rishabh, JUSTYN [address] | | | | | [address] | [place] [place] | | | | | [place] | [address] | | | | | [address] | | | | | | [phone] | | | +--------+--------+ + + + [...] [place] | | | | | | [address] | | | | | | | | +--------+---------+ + + + documented as of this encounter Visit Diagnoses Not on filedocumented in this encounter"
--- OUTSIDE RECORDS SUMMARY | ~2019-10-23 | XMS | Encounter Summary ---
Demographics + + + | Address | [address] | | | [place] [address] | + + + | Home Phone [...] + | Author | [facility] | | | and Rainerana | + + + | Organization | [facility] | [...] [place], [place] | | | | | [address] | | + + + + + | Jelena Hill | ECON | [place] | | | | | [address] | | + + + + + Care Team Providers + +------+ + | Care Lobster Man Name | Role | Phone | [...] + + | 01/14/ | Office | [facility] | Logan Wolf | Pre-syncope (Primary | | 2013 | Visit | CARDIOLOGY [address] | MD Missael [address] | Dx) | | | | [place], | [place] [address] [place] | | | | | [place] [address] | [place] [address] | | | | | [phone] | [phone] | | | | | | | [...] - 01/14/2014 4:19 PM PDTPCP: Ivy Sun [facility] Chief Complaint: Presyncope, Abnormal EKG HISTORY OF PRESENT ILLNESS: Patient is a 63-year-old female with history of 2 episodes of n ear 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 Since [...] sleep hygiene, especially in context of her rn night work that she has done for over [...] list was verified with patient or authorized public service representative. Past, Family, and Social History Past History (reviewed - no changes required): UCHD no rheumatic fever, TB, or Polio [id number] COLONIC POLYPS, ADENOMATOUS, HX OF (ICD-V12.72) - [...] Pancreatitis Father: 83, Triple Cardiac Bypass, 3-4 DE's, Pacemaker, Bilat CEA, HTN, diabetes, snore Pgf: 82, Stroke Pgm: 72, Heart Dz Siblings: Brother alive, Sister alive Social History (reviewed - no changes required): Born in [place] Education: two degrees in medical records and nursing. Single:Lives with Aleks MARKS in [facility] at the correctional facility for [...] sooner if clinically indicated. CC: Ivy Sun, AIRCRAFT ENGINE MECHANIC SUPERVISOR-BC HPI Review of Systems Physical Exam [...]
--- OUTSIDE RECORDS SUMMARY | ~2019-10-23 | XMS | Encounter Summary ---
Demographics + + + | Address | [address] | | | [place] [address] | + + + | Home Phone [...] Author | [facility] | | | and Rainerana | + + + | Organization | [facility] | [...] [place], [place] | | | | | [address] | | + + + + + | Jelena Hill | ECON | [place] | | | | | [address] | | + + + + + Care Team Providers + +------+ + | Care Marine Mechanic Name | Role | Phone | [...] + | 07/30/ | Refill | [facility] | Ivy Sun | Medication Refill | | 2015 | | MEDICINE [place] | Rishabh, JUSTYN [address] | | | | | [address] | [place] | | | | | [place] | [address] | | | | | [address] | | | | | | [phone] | | | +--------+--------+ + + + [...] [place] | | | | | | [address] | | | | | | | | +--------+---------+ + + + documented as of this encounter Visit Diagnoses Not on filedocumented in this encounter"
--- OUTSIDE RECORDS SUMMARY | ~2019-10-23 | XMS | Encounter Summary ---
Demographics + + + | Address | [address] | | | [place] [address] | + + + | Home Phone [...] | Author | [facility] | | | and Rainerana | + + + | Organization | [facility] | | | and Rainerana [...] [place], [place] | | | | | [address] | | + + + + + | Jelena Hill | ECON | [place] | | | | | [address] | | + + + + + Care Team Providers + +------+ + | Care Soil Technician Name | Role | Phone | [...] | Required | | sleep apnea | PRINTER ASSISTANT [address] | Disorder [address] | | | | | | [address] | [address] | | | | | | [place], | [place], | | | | | | [place] [address] | [place] [address] | | | | | | Phone: | Phone: | | | | | | [phone] | [phone] | | | | | | Fax: | Fax: | | | | | | [phone] | [phone] | +--------+ + + + + + Reason for Visit + + + | Reason | Comments | + + + | Gynecologic Exam | | + + + Encounter Details +--------+---------+ + + + | Date | Type | Department | Care Team | Description | +--------+---------+ + + + | 07/30/ | Office | [facility] | Ivy Sun | Anxiety (Primary | | 2017 | Visit | MEDICINE [place] | JUSTYN Keating [address] | Dx); Obstructive | | | | [address] | AVE [place] | sleep apnea; | | | | [place] | [address] | Essential | | | | [address] | | hypertension; | | | | [phone] | | Bruising; Lower | | | [...] Exam: Patient presents for annual exam. 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 Mammogram: 04/10/16 Colonoscopy: [...] wonders if she will need to see [facility] p medicine before using her CPAP again. [...] has been changed since signin Order Audit Withams Calcium Carb-Cholecalciferol (CALCIUM 1000 + D) 1000-800 MG-UNIT TABS (Taking) Take 1 tab let by mouth Daily. 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 Anxiety Uncontrolled Patient instructed to [...] Patient to have screening mammogram done at [facility] Order will be faxed. - [facility] Tomosynthesis Screening Bilateral; Future 7. Need for influenza vaccination Immunization counseling discussed by myself and updated today - Influenza *PF 4 yr or >, Quadrivalent Derived from [facility]iss[facility]Cult 8. Need for pneumococcal vaccination Immunization counseling discussed by myself and updated today - Pneumococcal conjugate vaccine (PCV13),IM [69654] Follow-up: Return for next available for Welcome [...] [place] | | | | | | [address] | | | | | | | [...]
--- OUTSIDE RECORDS SUMMARY | ~2019-10-23 | XMS | Encounter Summary ---
Demographics + + + | Address | [address] | | | [place] [address] | + + + | Home Phone [...] + + | Author | [facility] | | | and Rainerana | + + + | Organization | [facility] | | | and Rainerana [...] [place], [place] | | | | | [address] | | + + + + + | Jelena Hill | ECON | [place], [place] | | | | | [address] | | + + + + + Care Team Providers + +------+ + | Care Microchip Specialist Name | Role | Phone | [...] + | 01/09/ | Office | [facility] | Walter Benítez I, | Tachycardia (Primary | | 2017 | Visit | [facility] | REMBERTO [address] | Dx); Benign | | | | [address] | [place], [place] | paroxysmal | | | | [place] | [address] | positional vertigo, | | | | [address] | | unspecified | | | | [phone] | | laterality | +--------+---------+ + + [...] see an ear, 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 In some cases, you may see a [...] get worse New symptoms Date Last Reviewed: 01/13/201519995260-5105 [employer]. [address] [place] [address], [place] [address]. All [facility] reserved. This information is not [...] [place] | | | | | | [address] | | | | | | | [...] MD | | | | | | ([id number]) on 01/15/2017 | | | | | [...]
--- OUTSIDE RECORDS SUMMARY | ~2019-10-23 | XMS | Encounter Summary ---
Demographics + + + | Address | [address] | | | [place] [address] | + + + | Home Phone [...] Author | [facility] | | | and Rainerana | + + + | Organization | [facility] | | [...] [place], [place] | | | | | [address] | | + + + + + | Jelena Hill | ECON | [place] | | | | | [address] | | + + + + + Care Team Providers + +------+ + | Care Venetian Blind Cleaner And Repairer Name | Role | Phone | [...] + | 01/18/ | Telephone | [facility] | Ivy Snu | Diabetes | | 2013 | | MEDICINE [place] | JUSTYN Ketaing [address] | | | | | [address] | [place], [place] | | | | | [place], [place] | [address] | | | | | [address] | | | | | | [phone] | | | +--------+ + + + [...]
--- OUTSIDE RECORDS SUMMARY | ~2019-10-23 | XMS | Encounter Summary ---
Demographics + + + | Address | [address] | | | [place] [address] | + + + | Home Phone [...] + + | Author | [facility] | | | and Rainerana | + + + | Organization | [facility] | [...] [place], [place] | | | | | [address] | | + + + + + | Jelena Hill | ECON | [place] | | | | | [address] | | + + + + + Care Team Providers + +------+ + | Care Set Key Driver Name | Role | Phone | [...] + | 11/25/ | Refill | [facility] | Ivy Sun | Medication Refill | | 2014 | | MEDICINE [place] | Rishabh, JUSTYN [address] | | | | | [address] | [place], [place] | | | | | [place], [place] | [address] | | | | | [address] | | | | | | [phone] | | | +--------+--------+ + + + [...] | 2019 | Visit | | JUSTYN [address] | | | | | | [place] | | | | | | [address] | | | | | | | | +--------+---------+ + + + documented as of this encounter Visit Diagnoses Not on filedocumented in this encounter"
--- OUTSIDE RECORDS SUMMARY | ~2019-10-23 | XMS | Encounter Summary ---
Demographics + + + | Address | [address] | | | [place] [address] | + + + | Home Phone [...] Author | [facility] | | | and Rainerana | + + + | Organization | [facility] | [...] [place], [place] | | | | | [address] | | + + + + + | Jelena Hill | ECON | [place] | | | | | [address] | | + + + + + Care Team Providers + +------+ + | Care Business Executive Name | Role | Phone | [...] + + | 05/12/ | Office | [facility] | Ivy Sun | Larry (Primary | | 2012 | Visit | MEDICINE [place] | JUSTNY Keating [address] | Dx); Itching; Leg | | | | [address] | [address] [place] | cramps | | | | [place] | [address] | | | | | [address] | | | | | | [phone] | | | +--------+---------+ + + + [...] 62 y.o. female patient of Ivy Sun [facility]. Chief Complaint: Pruritis and Results here [...] [place] | | | | | | [address] | | | | | | | [...] + | [facility] | [address] | [place], [place] | [phone] | | [facility] | | [address] | | | - LABORATORY | | | | + + + + + | [facility] | [address] | [place], [place] | | | [facility] | | [address] | | | - LABORATORY | | [...]
--- OUTSIDE RECORDS SUMMARY | ~2019-10-23 | XMS | Encounter Summary ---
Demographics + + + | Address | [address] | | | [place] [address] | + + + | Home Phone [...] + | Author | [facility] | | | and Rainerana | + + + | Organization | [facility] [...] [place], [place] | | | | | [address] | | + + + + + | Jelena Hill | ECON | [place], [place] | | | | | [address] | | + + + + + Care Team Providers + +------+ + | Care Legal Office Administrator Name | Role | Phone | + +------+ + PCP | Unavailable | + +------+ + Encounter Details +--------+ + + + + | Date | Type | Department | Care Team | Description | +--------+ + + + + | 08/16/ | Hospital | [facility] | Ivy Sun | | | 2008 | Encounter | MED CTR LABORATORY | Rishabh, JUSTYN [address] | | | | | [address] [place] | [place]VE [place], [place] | | | | | [place], [place] | [address] | | | | | [address] | | | | | | [phone] | | | +--------+ + + + [...] [place] | | | | | | [id number] | | | | | | | | +--------+---------+ + + + documented as of this encounter Visit Diagnoses Not on filedocumented in this encounter"
--- OUTSIDE RECORDS SUMMARY | ~2019-10-23 | XMS | Encounter Summary ---
Demographics + + + | Address | [address] | | | [place] [address] | + + + | Home Phone [...] Author | [facility] | | | and Rainerana | + + + | Organization | [facility] [...] [place], [place] | | | | | [address] | | + + + + + | Jelena Hill | ECON | [place] | | | | | [address] | | + + + + + Care Team Providers + +------+ + | Care Auction Assistant Name | Role | Phone | [...] + + | 08/02/ | Telephone | [facility] | Ivy Sun | Medication Refill | | 2015 | | MEDICINE [place] | JUSTYN Keating [address] | | | | | [address] | [place], [place] | | | | | [place] | [address] | | | | | [address] | | | | | | [phone] | | | +--------+ + + + [...] [place] | | | | | | [address] | | | | | | | | +--------+---------+ + + + documented as of this encounter Visit Diagnoses + + | Diagnosis | + + | Acute midline thoracic back pain - Primary | + + documented in this encounter"
--- OUTSIDE RECORDS SUMMARY | ~2019-10-23 | XMS | Encounter Summary ---
Demographics + + + | Address | [address] | | | [place] [address] | + + + | Home Phone [...] | Author | [facility] | | | and Rainerana | + + + | Organization | [facility] [...] [place], [place] | | | | | [address] | | + + + + + | Jelena Hill | ECON | [place] | | | | | [address] | | + + + + + Care Team Providers + +------+ + | Care Ticket Printer And Tagger Name | Role | Phone | + [...] + + | 01/26/ | Office | [facility] | Logan Wolf | Essential | | 2014 | Visit | CARDIOLOGY [address] | MD Missael [address] | hypertension | | | | [place], | [address] [place] | (Primary Dx); | | | | [place] [address] | [place] [address] | Tachycardia | | | | [phone] | [phone] | | | | | | | [...] 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 Past, Family, and Social History Past History (reviewed - no changes required): UCHD no rheumatic fever, TB, or Polio [id number] COLONIC POLYPS, ADENOMATOUS, HX OF (ICD-V12.72) - [...] Pancreatitis Father: 83, Triple Cardiac Bypass, 3-4 NE's, Pacemaker, Bilat CEA, HTN, diabetes, snore Pgf: 82, Stroke Pgm: 72, Heart Dz Siblings: Brother alive, Sister alive Social History (reviewed - no changes required): Born in [place] Education: two degrees in medical records and nursing. Single:Lives with Aleks MARKS in [facility] at the correctional facility [...] change. She also has exhibited borderline tachycardia door trimmer nically even preceding therapy with Requip. Otherwise, [...] sooner if clinically indicated. CC: Ivy Sun, SCREEN REPAIRER CRUSHER-BC Hyperlipidemia Hypertension Review of Systems Physical Exam [...] [place] | | | | | | [address] | | | | | | | [...]
--- OUTSIDE RECORDS SUMMARY | ~2019-10-23 | XMS | Encounter Summary ---
Demographics + + + | Address | [address] | | | [place] [address] | + + + | Home Phone [...] Author | [facility] | | | and Rainerana | + + + | Organization | [facility] | | | and [...] [place], [place] | | | | | [address] | | + + + + + | Jelena Hill | ECON | [place] | | | | | [address] | | + + + + + Care Team Providers + +------+ + | Care Systems Software Specialist Name | Role | Phone | [...] + + | 10/01/ | Office | [facility] | Ivy Sun | Medicare annual | | 2018 | Visit | MEDICINE [place] | JUSTYN Keating [address] | wellness visit, | | | | [address] | [place]VE [place] | subsequent (Primary | | | | [place] | [address] | Dx); Screening | | | | [address] | | mammogram, encounter | | | | [phone] | | for; Need for | | [...] weekly. 1 each 0 Cholecalciferol (VITAMIN D3) 16643 units TABS Take 1 tablet by mouth [...] than or equal to 2yo subcutaneous /IM [26281] Influenza *PF 65 yr or >, Trivalent High-Dose documented in this encounter Progress Notes Ivy Sun, HEPATOLOGIST - 10/01/2018 10:15 AM PSTFormatting of this note might be differen t from the original. Medicare Annual Wellness Visit Lucei Miller is a 68 y.o. female who [...] weekly. 1 each 0 Cholecalciferol (VITAMIN D3) 91822 units TABS Take 1 tablet by mouth [...] Current Medicare Suppliers: [facility] - [place], [place] - [address] [place] [address] -[id number] - [place], [place] - [address] [place] [address] Immunizations Immunization History Administered Date(s) Administered INFLUENZA [...] following health maintenance items are reviewed in [facility] and correct as of today: Health Maintenance [...] scan comple coni in 2017, will call [facility] to get report sent over. She will also schedule follow-up for her chronic health conditions and we will obtain her l abs from [facility] 3. Screening mammogram, encounter for Due for [...] than or equal to 2yo subcutaneous/I M [48256] RECOMMENDATIONS: The following recommendations were made as a result of this visit, and the HRA Is a Care Management Referral indicated for this patient? no Diet: Recommend DASH diet plan Exercise: Advised to engage in some form or exercise within mobility limitations. Immunizations: Zoster (Not covered by Medicare) Screening Labs: had these done at [facility] and they are not available for appt. Screening Exams: Screening mammogram HEALTH RISK APPRAISAL (Attestation) Health Risk Assessment Form was reviewed with the patient and recommendations made to Lucie Miller based on her risk factors. PERSONALIZED PREVENTATIVE PLAN: (Attestation) A Personalized Care Plan for Ms. Miller has been established and reviewed with patient an d made available to the patient. IDori, Final Operations Technician, am acting as a scribe on [...]
--- OUTSIDE RECORDS SUMMARY | ~2019-10-23 | XMS | Encounter Summary ---
Demographics + + + | Address | [address] | | | [place] [address] | + + + | Home Phone [...] + + + | Author | [facility] | | | and Rainerana | + + + | Organization | [facility] | | [...] [place], [place] | | | | | [address] | | + + + + + | Jelena Hill | ECON | [place] | | | | | [address] | | + + + + + Care Team Providers + +------+ + | Care Shipping Services Sales Representative Name | Role | Phone | + +------+ + | Ivy Sun | PCP | | + +------+ + Encounter Details +--------+ + + + + | Date | Type | Department | Care Team | Description | +--------+ + + + + | 08/11/ | Hospital | [facility] | SunIvy | Restless legs | | 2011 - | Encounter | [facility] | Rishabh, JUSTYN [address] | syndrome (RLS) | | | | [address] [place] | [place] [place], [place] | | | 08/13/ | | [place], [place] | [address] | | | 2011 | | [address] | | | | | | [phone] | | | +--------+ + + + [...] [place] | | | | | | [id number] | | | | | | | [...] | [facility] | | | | [facility] | | MEDICAL | | | [...] + | [facility] | [address] | [place] | [phone] | | [facility] | | [address] | | | - LABORATORY | | | | + + + + + | [facility] | [address] | [place] | | | [facility] | | [address] | | | - LABORATORY | | [...] performed on the Lexx | ng/mL | [facility] | | | | [facility] | | MEDICAL | | | [...] + | [facility] | [address] | [place] | [phone] | | [facility] | | [address] | | | - LABORATORY | | | | + + + + + | [facility] | [address] | [place] | | | [facility] | | [address] | | | - LABORATORY | | | | + + + + + documented in this encounter Visit Diagnoses + + | Diagnosis | + + | Restless legs syndrome (RLS) | + + documented in this encounter"
--- OUTSIDE RECORDS SUMMARY | ~2019-10-23 | XMS | Encounter Summary ---
Demographics + + + | Address | [address] | | | [place] [address] | + + + | Home Phone [...] | Author | [facility] | | | and Rainerana | + + + | Organization | [facility] | [...] [place], [place] | | | | | [address] | | + + + + + | Jelena Hill | ECON | [place], [place] | | | | | [address] | | + + + + + Care Team Providers + +------+ + | Care Assessor Name | Role | Phone | + [...] + + | 07/26/ | Telephone | [facility] | Ivy Sun | Appointment (MRI) | | 2015 | | MEDICINE [place] | JUSTYN Keating [address] | | | | | [address] | [address] [place] | | | | | [place] | [address] | | | | | [address] | | | | | | [phone] | | | +--------+ + + + [...]
--- OUTSIDE RECORDS SUMMARY | ~2019-10-23 | XMS | Encounter Summary ---
Demographics + + + | Address | [address] | | | [place] [address] | + + + | Home Phone [...] Author | [facility] | | | and Rainerana | + + + | Organization | [facility] | [...] [place], [place] | | | | | [address] | | + + + + + | Jelena Hill | ECON | [place] | | | | | [address] | | + + + + + Care Team Providers + +------+ + | Care Tile Machine Operator Name | Role | Phone [...] + + | 07/31/ | Telephone | [facility] | Ivy Sun | Paperwork (disabled | | 2016 | | MEDICINE [place] | JUSTYN Keating [address] | parking permit) | | | | [address] | [place]VE [place] | | | | | [place] | [address] | | | | | [address] | | | | | | [phone] | | | +--------+ + + + [...] [place] | | | | | | [address] | | | | | | | | +--------+---------+ + + + documented as of this encounter Visit Diagnoses Not on filedocumented in this encounter"
--- OUTSIDE RECORDS SUMMARY | ~2019-10-23 | XMS | Encounter Summary ---
Demographics + + + | Address | [address] | | | [place] [address] | + + + | Home Phone | | + + + | Preferred Language | Unknown | + + + | Marital Status | Single | + + + | Sabianism Affiliation | 1077 | + + + | Race | Unknown | + + + | Ethnic Group | Unknown | + + + Author + + + | Author | [facility] | | | and Rainerana | + + + | Organization | [facility] | | | and [...] [place], [place] | | | | | [address] | | + + + + + | Jelena Hill | ECON | [place] | | | | | [address] | | + + + + + Care Team Providers + +------+ + | Care Corporate Vp Advertising & Online Name | Role | Phone | + [...] + | 04/17/ | Refill | [facility] | Ivy Sun | Medication Refill | | 2012 | | MEDICINE [place] | Rishabh, JUSTYN [address] | | | | | [address] | [place], [place] | | | | | [place], [place] | [address] | | | | | [address] | | | | | | [phone] | | | +--------+--------+ + + + [...] [place] | | | | | | 132[address] | | | | | | | | +--------+---------+ + + + documented as of this encounter Visit Diagnoses Not on filedocumented in this encounter"
--- OUTSIDE RECORDS SUMMARY | ~2019-10-23 | XMS | Encounter Summary ---
Demographics + + + | Address | [address] | | | [place] [address] | + + + | Home Phone [...] [facility] | | | and Rainerana | + + + | Organization | [facility] | | [...] [place], [place] | | | | | [address] | | + + + + + | Jelena Hill | ECON | [place] | | | | | [address] | | + + + + + Care Team Providers + +------+ + | Care Window Shade Cutter Name | Role | Phone | [...] | Required | Gynecology | Postmenopaus | ENROLLMENT SERVICES VICE PRESIDENT [address] | PUBLICATION MANAGER & | | | | | al bleeding | [address] | INFERTILITY | | | | | Thickened | [place], | GROUP [address] | | | | | endometrium | [place] [address] | [address] | | | | | | Phone: | [place], | | | | | | [phone] | [place] [address] | | | | | | Fax: | Phone: | | | | | | [phone] | [phone] | | | | | | | Fax: | | | | | | | [phone] | +--------+ + + + + + Reason for Visit + + + | Reason | Comments | + + + | Appointment | | + + + Encounter Details +--------+ + + + + | Date | Type | Department | Care Team | Description | +--------+ + + + + | 04/19/ | Telephone | [facility] | Ivy Sun | Appointment | | 2013 | | MEDICINE [place] | L, JUSTYN [address] | | | | | [address] | [place]VE [place], [place] | | | | | [place], [place] | [address] | | | | | [address] | | | | | | [phone] | | | +--------+ + + + [...] [place] | | | | | | [address] | | | | | | | | +--------+---------+ + + + + + +--------+ + + | Name | Type | Priori | Associated Diagnoses | Order Schedule | | | | ty | | | + + +--------+ + + | [place] | Outpatient | Routin | Postmenopausal | Ordered: 04/19/2014 | | Clinic EXTENSION AGENT & | Referral | e | bleeding [...]
--- OUTSIDE RECORDS SUMMARY | ~2019-10-23 | XMS | Encounter Summary ---
Demographics + + + | Address | [address] | | | [place] [address] | + + + | Home Phone [...] + | Author | [facility] | | | and Rainerana | + + + | Organization | [facility] | | [...] [place], [place] | | | | | [address] | | + + + + + | Jelena Hill | ECON | [place], [place] | | | | | [address] | | + + + + + Care Team Providers + +------+ + | Care Wheat Farmer Name | Role | Phone | [...] + + | 02/05/ | Telephone | [facility] | Ivy Sun | Medication Prior | | 2019 | | MEDICINE [place] | Rishabh, AIRCRAFT LINE ASSEMBLER [address] | Authorization | | | | [address] | [place]VE [place], [place] | (Nortriptyline ) | | | | [place], [place] | [address] | | | | | [address] | | | | | | [phone] | | | +--------+ + + + [...] [place] | | | | | | [address] | | | | | | | | +--------+---------+ + + + documented as of this encounter Visit Diagnoses + + | Diagnosis | + + | Chronic insomnia - Primary Insomnia, unspecified | + + documented in this encounter"
--- OUTSIDE RECORDS SUMMARY | ~2019-10-23 | XMS | Encounter Summary ---
Demographics + + + | Address | [address] | | | [place] [address] | + + + | Home Phone [...] | Author | [facility] | | | and Rainerana | + + + | Organization | [facility] [...] [place], [place] | | | | | [address] | | + + + + + | Jelena Hill | ECON | [place] | | | | | [address] | | + + + + + Care Team Providers + +------+ + | Care Open Hearth Stockyard Supervisor Name | Role | Phone | [...] + + | 04/04/ | Office | [facility] | Ivy Sun | Anxious depression | | 2016 | Visit | MEDICINE [place] | L, JUSTYN [address] | (Primary Dx); Back | | | | [address] | [address] [place] | pain, unspecified | | | | [place] | [address] | back pain | | | | [address] | | laterality, | | | | [phone] | | unspecified | | | | [...] lost an animal. Is fr om her art objects supervisor boyfriend but is still living with him. [...] dysuria. She did a UA yesterday at [facility]. Symptoms started Saturday. Patient is drinking [...] has been changed since signin Order Audit [place] Calcium Carb-Cholecalciferol (CALCIUM 1000 + D) 1000-800 MG-UNIT TABS (Taking) Take 1 tab let by mouth Daily. Number of times this order has been changed since signin Order [facility] [place] cholecalciferol (VITAMIN D-3) 1,000 units capsule (Taking) Take 1,000 Units by mouth Tresa y. Number of times this order has been changed since signin Order [facility] [place] FreeStyle Lancets MISC (Taking) Test blood sugar twice daily. 790.29 Number of times this order has been changed since signin Order [facility] [place] gabapentin (NEURONTIN) 600 MG tablet (Taking) Take 1 tablet by mouth nightly. glucose blood test strips (FREESTYLE LITE) strip (Taking) Test blood sugar twice daily . 790.29 Number of times this order has been changed since signin Order [facility] [place] lisinopril (PRINIVIL, ZESTRIL) 10 mg tablet (Taking) [...] has been changed since signin Order [facility] [place] UNCODED MEDICATION (Taking) Diagnosis: Obstructive Sleep Apnea ICD-9: 327.23 Length of Need: 99 Months Number of times this order has been changed since signin Order [facility] [place] UNCODED MEDICATION (Taking) Wear at all times while sleeping. Number of times this order has been changed since signin Order [facility] [place] Past Medical History She has a past [...] ScreeningTotal Score 10 (04/04/161399) (Printable questionnaires in [place]) Interpretation of Total Score: 1-4 = Minimal [...] or Chronic Pain tab; printable questionnaires in [place]) Interpretation of Total Score: 8-9 = consistent [...] 150 UA RBC, External >50 UA Specific [place], External 1.029 UA Leukocyte Esterase, External 500 [...] [place] | | | | | | [address] | | | | | | | [...]
--- OUTSIDE RECORDS SUMMARY | ~2019-10-23 | XMS | Encounter Summary ---
Demographics + + + | Address | [address] | | | [place] [address] | + + + | Home Phone [...] Author | [facility] | | | and Rainerana | + + + | Organization | [facility] | | | and Rainerana | + + + | Address | Unknown | + + + | Phone | Unavailable | + + + Support + + + + + | Name | Relationship | Address | Phone | + + + + + | Aleks Noguera | BRYANT | [address] | | | | | [place], [place] | | | | | [address] | | + + + + + | Jelena Hill | ECON | [place] | | | | | [address] | | + + + + + Care Team Providers + +------+ + | Care Milled Rubber Tender Name | Role | Phone | + +------+ + | Ivy Sun | PCP | | + +------+ + Reason for Visit + + + | Reason | Comments | + + + | Gynecologic Exam | | + + + | Urinary Frequency | bladder problems | + + + | Other | trigger point / bilateral index finger | + + + Encounter Details +--------+---------+ + + + | Date | Type | Department | Care Team | Description | +--------+---------+ + + + | 05/05/ | Office | [facility] | Ivy Sun | Routine | | 2012 | Visit | MEDICINE [place] | JUSTYN Keating [address] | gynecological | | | | [address] | [address] [place] | examination (Primary | | | | [place] | [address] | Dx); Dysuria; | | | | [address] | | Osteopenia; Hx of | | | | [phone] | | compression fracture | | | | | | of spine; | | | | | | HYPERTENSION, | | | | | | CONTROLLED; | | | | | | Hyperlipidemia; | | | | | | Impaired fasting | | | | | | glucose; Hematuria | +--------+---------+ + + + Social History [...] + + + | Blood Pressure | 108/78 | 05/05/2013 2:25 PM | | | | | PDT | | + + + + + | Pulse | 123 | 05/05/2013 2:25 PM | | | | | PDT | | + + + + + | Temperature | 36.1 C (97 F) | 05/05/2013 2:25 PM | | | | | PDT | | + + + + + | Respiratory Rate | 18 | 05/05/2013 2:25 PM | | | | | PDT | | + + + + + | Oxygen Saturation | 93% | 05/05/2013 2:25 PM | | | | | PDT | | + + + + + | Inhaled Oxygen | - | - | | | Concentration | | | | + + + + + | Weight | 117 kg (258 lb) | 05/05/2013 2:25 PM | | | | | PDT | | + + + + + | Height | 170.2 cm (5' 7") | 05/05/2013 2:25 PM | | | | | PDT | | + + + + + | Body Mass Index | 40.41 | 05/05/2013 2:25 PM | | | | | PDT | | + + + + + documented in this encounter Progress Notes Ivy Sun [facility] - 05/05/2013 2:51 PM PDTFormatting of this note might be differen t from the original. Subjective: Lucie Miller is a 62 y.o. female patient of Ivy Sun [facility]. Chief Complaint: Gynecologic Exam, Urinary Frequency and Other Here for her annual exam and has some concerns. having urinary urgency. Drinks 48 ounce mountain- dew per day. Onset 4-5 months. Has urinar y incontinence and if doesn't get to bathroom right away will be incontinent. Wears a poise pad. No dysuria, fever, chills. Abdominal pain. Has been present for a few years. Due for fasting labs for cholesterol and hypertension. Is not checking B/P outside clinic. Hypertension: Control and Compliance Low Sodium Diet: no Medication compliance: good Home Blood Pressures: not checking. BP: 108/78 mmHg Pt denies: No headache, visual symptoms, neurologic problems, syncope No chest pain, palpitations,peripheral edema No side effects from any antihypertensive medications HYPERLIPIDEMIA: Diet: Low fat, low carb dietary compliance: poor Denies side effects of medications No evidence of medication toxicity Denies chest pain, shortness of breath Denies Myalgias, abdominal pain, jaundice, constipation. Mammogram due in may. No vaginal complaints. Has hx of abnormal pap smears. Has never had a dexa scan. Recently had a lumbar spine compression fracture from a fall. No Known Allergies Medications: She has a [...] items are noted in HPI. Objective: BP 108/78 | Pulse 123 | Temp 36.1 C (97 F) (Temporal) | Resp 18 | Ht 1.702 m (5' 7") | Wt 117.028 kg (258 lb) | BMI 40.41 kg/m2 | SpO2 93% | ? No General Appearance: Alert, cooperative, no distress, appears stated age Head: Normocephalic, without obvious abnormality, atraumatic Eyes: PERRL, conjunctiva/corneas clear Ears: Normal TM's and external ear canals, and acuity Nose: Nares normal, septum midline, mucosa normal, no drainage or sinus tenderness Throat: Lips, mucosa, and tongue normal; teeth and gums normal, Posterior pharynx normal Neck: Supple, symmetrical, no adenopathy, thyroid: not enlarged, symmetric, no tenderness/m ass/nodules, no carotid bruit or JVD Lungs: Clear to auscultation bilaterally, respirations unlabored Heart: Breast: Regular rate and rhythm, S1, S2 normal, no murmur, rub or gallop Symmetrical. No skin changes overlying breast, no Dimpling, retractions, nipple discharge, masses or lumps. No axillary or supraclavicular lymphadenopathy. Abdomen: : Morbidly obese, Soft, non-tender, normal bowel sounds, no masses, no organomegaly. Exam limited due to body habitus. Normal external female genitalia. No external lesions, urinary meatus normal,introitus norm al. Vaginal pale pink,moist, atrophic. Small amount of physiological discharge. Cervix round and nulliparous, no lesions noted. Pap smear obtained from cervical OS. Bimanual exam revea ls no uterine or adenaxal masses. No Cervical motion tenderness. Rectal exam normal external ly and normal tone. Stool guiac negative. Alessandro Davenport RN in room for assistant warehouse manager. Extremities: Extremities normal, atraumatic, no cyanosis or edema Psychiatric: normal mood and affect. Eye contact good. Speech normal diction and flow. Thoughts well organized.he is Skin: Skin color, texture, turgor normal, no rashes or lesions Neurologic: Nonfocal. Alert and oriented x3. Results for orders placed during the hospital encounter of 08/11/12 FERRITIN Component Value Range FERRITIN 21.9 11.0 - 306.9 ng/mL Assessment and Plans: Lucie was seen today for gynecologic exam, urinary frequency and other. Diagnoses and associated orders for this visit: Routine gynecological examination: Pap results in 10-12 days. Healthy habits discussed , i ncluding regular breast exams, proper calcium intake, exercise. Follow-up one year for next exam. - POCT occult blood stool Dysuria: urine dip showed 1+ blood. Will culture urine and notify of results. If no urine c ulture, will have come for repeat and if blood still noted, will recommend urology referral as current smoker. - POCT Urinalysis Dipstick Non-Automated - Culture, Urine, Smear; Future Osteopenia: dexa scan ordered and will notify of results. Reports had dexa years ago and sh owed osteopenia. - DEXA Bone Density Study; Future Hx of compression fracture of spine - DEXA Bone Density Study; Future Hypertension, controlled. -. Blood pressure stable and goals discussed -. Continue current medications - Advised low salt diet - Advised regular cardiovascular exercise -. Labs ordered - Follow up as needed if blood pressures are above goal - Comprehensive Metabolic Panel; Future Hyperlipidemia -. Take meds as directed -. Discussed regular cardiovascular exercise and maintaining healthy wt. -. Avoid high fat/cholesterol diet -. Lipid panel and LFT's ordered - Comprehensive Metabolic Panel; Future - Lipid Profile; Future Impaired fasting glucose - Hemoglobin A1C; Future Care instructions and warning signs were discussed. Medications per orders. Side effects discussed. Labs and investigations per orders. Recheck 2 weeks as had other issues to discuss. Will review labs results as well at that vi sit. Sooner prn. documented in th is encounter Plan of Treatment +--------+---------+ + + + | Date | Type | Specialty | Care Team | Description | +--------+---------+ + + + | 11/23/ | Office | Family Medicine | Ivy Sun | | | 2020 | Visit | | JUSTYN Keating [address] | | | | | | [place] | | | | | | [address] | | | | | | | | +--------+---------+ + + + documented as of this encounter Procedures + +--------+ + + + | Procedure Name | Priori | Date/Time | Associated Diagnosis | Comments | | | ty | | | | + +--------+ + + + | POCT, OCCULT BLOOD, | Routin | 05/05/2013 | Routine | Results for this | | STOOL, FOR | e | 3:00 PM | gynecological | procedure are in the | | COLORECTAL NEOPLASM | | PDT | examination | results section. | | SCREENING | | | | | + +--------+ + + + | POCT URINALYSIS | Routin | 05/05/2013 | Dysuria | Results for this | | DIPSTICK | e | 2:42 PM | | procedure are in the | | | | PDT | | results section. | + +--------+ + + + documented in this encounter Results Urinalysis with Microscopic if Indicated (05/12/2013 3:11 [...] - 1.030 | [facility] | | | [place] | | | [facility] | | [...] + | [facility] | [address] | [place] | [phone] | | [facility] | | [address] | | | - LABORATORY | | | | + + + + + | [facility] | [address] | [place], [place] | | | [facility] | | [address] | | | - LABORATORY | | | | + + + + + DEXA Bone Density Study (05/12/2013 2:25 PM PDT) + + | Specimen | + + | | + + + + + | Narrative | Performed At | + + + | [facility] | [place] | | Department [address] [facility] | [facility] | | [ rep [address]] [ rep [facility] | | st zip] Signed | - IMAGING | | | | | Patient Name: LUCIE MILLER Physician: | | | KATHYO. : 1950 Age: 62 Sex: F Unit #: [id number] | | | Exam Date: 05/12/13 [place] [facility] [place] | | | Report #: [id number] Page: | | | %(RAD)RES..mtdd.print.filter("pg") of %(RAD) | | | RES..mtdd.print.filter("tpg") | | | | | | Accession Number: [id number] | | | DEXA CLINICAL HISTORY: OSTEOPENIA. [...] | | | Transcribed Date/Time: 05/12/2013 16:28 Transportation Maintenance Worker: | | | <<Signature on File>> | | | Forest | | | Nathaly Manley MD05/12/13 2665 <Electronically signed by Forest Andersen | | | Vineet JEFFRIES> Forest Manley MD 05/12/13 5995 | | | Transportation Maintenance Worker: [employer] [id number]/16/13 4028 | | | PARESH Butt | | + + + + + + + + | Performing | Address | City/State/Zipcode | Phone Number | | Organization | | | | + + + + + | [facility] | [address] | [place] | [phone] | | [facility] | | [address] | | | - IMAGING | | [...] | | | A1c | | | [place] | | | [...] + | [facility] | [address] | [place] | [phone] | | [facility] | | [address] | | | - LABORATORY | | | | + + + + + | [facility] | [address] | [place] | | | [facility] | | [address] | | | - LABORATORY | | [...] LDL, | 83 | <130 mg/dL | [facility] | | [...] + | [facility] | [address] | [place] | [phone] | | [facility] | | [address] | | | - LABORATORY | | | | + + + + + | [facility] | [address] | [place], [place] | | | [facility] | | [address] | | | - LABORATORY | | [...] 3.3 | 3.2 - 5.0 gm/dL | [facility] | | | | | | [facility] | | | | | | MEDICAL | | | | | | CENTER - | | | | | | LABORATORY | | + + + + + + | BUN | 10 | 7 - 18 mg/dL | [facility] | | | | | | [facility] | | | | | | MEDICAL | | | | | | CENTER - | | | | | | LABORATORY | | + + + + + + | Creatinine | 0.85 | 0.60 - 1.30 | [facility] | | | | | mg/dL | [...] | 10.0 | 6.0 - 17.0 | [facility] | [...] | + + + + + | [facility] | [address] | [place], [place] | [phone] | | [facility] | | [address] | | | - LABORATORY | | | | + + + + + | [facility] | [address] | [place], [place] | | | [facility] | | [address] | | | - LABORATORY | | | | + + + + + POCT occult blood stool (05/05/2013 3:00 PM PDT) + + + + + + | Component | Value | Ref Range | Performed | Pathologist | | | | | At | Signature | + + + + + + | Hemoccult 1 | Negative | Negative | | | | Result | | | | | + + + + + + | Collection | . | | | | + + + + + + | Card and | Acceptable | | | | | developer | | | | | | expiration | | | | | | dates | | | | | + + + + + + | Internal QC | Acceptable | | | | + + + + + + | Card Lot # | | | | | + + + + + + | Developer | | | | | | Lot # | | | | | + + + + + + + + | Specimen | + + | Stool specimen | | (specimen) | + + POCT Urinalysis Dipstick Non-Automated (05/05/2013 2:42 PM PDT) + + + + + [...] + + | Bilirubin, | Negative | | | | | UA, POC | | | | | + + + + + + | Ketones, | Negative | Negative | | | | UA, POC | | | | | + + + + + + | Specific | 1.020 | | | | | [place], | | | | | | UA, POC | | | | | + + + + + + | Blood, UA, | 1+ | | | | | POC | | | | | + + + + + + | pH, UA, POC | 5.5 | | | | + + + + + + | Protein, | Negative | | | | | [...] + + + + | Leukocyte | Negative | | | | | Esterase, | | | | | | UA, POC | | | | | + + + + + + + + | Specimen | + + | Urine specimen | | (specimen) | + + Culture, Urine, Smear (05/05/2013 2:30 PM PDT) [...] + + + | [facility] | [facility] | | | [facility] | | | [facility] | | | - LABORATORY | + + + + + + + + | Performing | Address | City/State/Zipcode | Phone Number | | Organization | | | | + + + + + | [facility] | [address] | [place] | [phone] | | [facility] | | [address] | | | - LABORATORY | | | | + + + + + | [facility] | [address] | [place] | | | [facility] | | [address] | | | - LABORATORY | | | | + + + + + documented in this encounter Visit Diagnoses + + | Diagnosis | + + | Routine gynecological examination - Primary | + + | Dysuria | + + | Osteopenia Disorder of bone and cartilage, unspecified | + + | Hx of compression fracture of spine Personal history of traumatic fracture | + + | HYPERTENSION, CONTROLLED Essential hypertension, benign | + + | Hyperlipidemia Other and unspecified hyperlipidemia | + + | Impaired fasting glucose | + + | Hematuria Hematuria, unspecified | + + documented in this encounter
--- OUTSIDE RECORDS SUMMARY | ~2019-10-23 | XMS | Encounter Summary ---
Demographics + + + | Address | [address] | | | [place] [address] | + + + | Home Phone [...] | Author | [facility] | | | and Rainerana | + + + | Organization | [facility] [...] [place], [place] | | | | | [address] | | + + + + + | Jelena Hill | ECON | [place] | | | | | [address] | | + + + + + Care Team Providers + +------+ + | Care Payment Processor Name | Role | Phone | + [...] | | | Required | | | KETTLE OPERATOR [address] | ENDOCRINOLOGY | | | | | | [address] | [address] | | | | | | [place], | [place] | | | | | | [place] [address] | [place], [place] | | | | | | Phone: | [phone] | | | | | | [phone] | Phone: | | | | | | Fax: | [phone] | | | | | | [phone] | Fax: | | | | | | | [phone] | +--------+ + + + + + Reason for Visit + + + | Reason | Comments | + + + | Hypertension | | + + + Encounter Details +--------+---------+ + + + | Date | Type | Department | Care Team | Description | +--------+---------+ + + + | 11/26/ | Office | [facility] | Ivy Sun | Essential | | 2017 | Visit | [facility] | JUSTYN Keating [address] | hypertension | | | | [address] | [place]VE [place] | (Primary Dx); | | | | [place] | [address] | Function kidney | | | | [address] | | decreased; OAB | | | | [phone] | | (overactive | | | | [...] encounter Patient Instructions Patient Instructions Villa Lynn, Grave Cleaner - 11/26/2016 1:36 PM PSTFormzahraa reveles of this note might be different from the original. Get a Blood pressure machine and start checking your blood pressure 2-3 times a week. If your blood pressure continues to be low, then we may stop the Lisinopril. Referral placed to [facility]. You should hear from them in the next 2 weeks, if you dont hear from them, then call and let us know. Start Detrol LA, 4 mg tab. Take one tab daily. Send me a Nexant message in 4 weeks, notify ing me [...] Back or abdominal pain Date Last Reviewed: 07/05/201419992052-1460 [employer]. [address] [place] [address], [place] [address]. All righ ts reserved. This information is [...] has been changed since signin Order Audit [facility] Calcium Carb-Cholecalciferol (CALCIUM 1000 + D) 1000-800 MG-UNIT TABS (Taking) Take 1 tab let by mouth Daily. Number of times this order has been changed since signin Order Audit [facility] FreeStyle Lancets MISC (Taking) Test blood sugar twice daily. 790.29 Number of times this order has been changed since signin Order Audit [facility] gabapentin (NEURONTIN) 600 MG tablet (Taking) Take 1 tablet by mouth nightly. glucose blood test strips (FREESTYLE LITE) strip (Taking) Test blood sugar twice daily . 790.29 Number of times this order has been changed since signin Order Audit [facility] lisinopril (PRINIVIL, ZESTRIL) 5 mg tablet (Taking) [...] has been changed since signin Order Audit [facility] UNCODED MEDICATION (Taking) Wear at all times while sleeping. 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 Patient instructed to send me a Nexant message in 4 weeks notifying me how she is tolerati ng the medication. Medication risks and benefits were reviewed in detail today with the patient who expresses understanding. Pt will call or return with problems or side effects. - tolterodine (DETROL LA) 4 MG 24 hr capsule; Take 1 capsule by mouth Daily. Dispense: 90 capsule; Refill: 1 4. Osteopenia Referral placed to [facility]. Patient prefers going here rather than [facility] ndocrinology. - Endocrinology, External - AMB Referral [...] discussed. Labs and investigations per orders. IVilla, Cushion Padder, am acting as a scribe on behalf [...] [place] | | | | | | [address] | | | | | | | [...]
--- OUTSIDE RECORDS SUMMARY | ~2019-10-23 | XMS | Encounter Summary ---
Demographics + + + | Address | [address] | | | [place] [address] | + + + | Home Phone [...] | Author | [facility] | | | and Rainerana | + + + | Organization | [facility] | [...] [place], [place] | | | | | [address] | | + + + + + | Jelena Hill | ECON | [place] | | | | | [address] | | + + + + + Care Team Providers + +------+ + | Care Advisor Consultant Name | Role | Phone | + +------+ + | Ivy Sun | PCP | | + +------+ + Encounter Details +--------+ + + + + | Date | Type | Department | Care Team | Description | +--------+ + + + + | 02/08/ | Abstract | [facility] | Ivy Sun | | | 2014 | | [facility]ICINE [place] | L, ORTHOPEDIC SHOES SALESPERSON [address] | | | | | [address] | [address] [place] | | | | | [place] | [address] | | | | | [address] | | | | | | [phone] | | | +--------+ + + + [...] [place] | | | | | | [address] | | | | | | | | +--------+---------+ + + + documented as of this encounter Visit Diagnoses Not on filedocumented in this encounter"
--- OUTSIDE RECORDS SUMMARY | ~2019-10-23 | XMS | Encounter Summary ---
Demographics + + + | Address | [address] | | | [place] [address] | + + + | Home Phone [...] + | Author | [facility] | | | and Rainerana | + + + | Organization | [facility] | | [...] [place], [place] | | | | | [address] | | + + + + + | Jelena Hill | ECON | [place] | | | | | [address] | | + + + + + Care Team Providers + +------+ + | Care Army Senior Officer Name | Role | Phone | [...] + | 12/25/ | Refill | [facility] | Ivy Sun | Medication Refill | | 2017 | | MEDICINE [place] | Rishabh, JUSTYN [address] | | | | | [address] | [place] | | | | | [place] | [address] | | | | | [address] | | | | | | [phone] | | | +--------+--------+ + + + [...] [place] | | | | | | [address] | | | | | | | | +--------+---------+ + + + documented as of this encounter Visit Diagnoses Not on filedocumented in this encounter"
--- OUTSIDE RECORDS SUMMARY | ~2019-10-23 | XMS | Encounter Summary ---
Demographics + + + | Address | [address] | | | [place] [address] | + + + | Home Phone [...] + | Author | [facility] | | | and Rainerana | + + + | Organization | [facility] | | [...] [place], [place] | | | | | [address] | | + + + + + | Jelena Hill | ECON | [place] | | | | | [address] | | + + + + + Care Team Providers + +------+ + | Care Clerical Assistant Name | Role | Phone | + +------+ + | Ivy Sun | PCP | | + +------+ + Encounter Details +--------+ + + + + | Date | Type | Department | Care Team | Description | +--------+ + + + + | 08/06/ | Abstract | [facility] | Ivy Sun | | | 2011 | | Group - [place] | Rishabh, JUSTYN [address] | | | | | [address] [place] | | | | | [place] | [address] | | | | | [facility] [place] | | | | | | [address] | | | | | | [phone] | | | +--------+ + + + [...]
--- OUTSIDE RECORDS SUMMARY | ~2019-10-23 | XMS | Encounter Summary ---
Demographics + + + | Address | [address] | | | [place] [address] | + + + | Home Phone [...] Author | [facility] | | | and Rainerana | + + + | Organization | [facility] | | [...] [place], [place] | | | | | [address] | | + + + + + | Jelena Hill | ECON | [place] | | | | | [address] | | + + + + + Care Team Providers + +------+ + | Care Sewer Cleaner Name | Role | Phone | + +------+ + | Ivy Sun | PCP | | + +------+ + Encounter Details +--------+ + + + + | Date | Type | Department | Care Team | Description | +--------+ + + + + | 08/28/ | Hospital | [facility] | Ivy Sun | | | 2016 | Encounter | MED CTR LABORATORY | L, RECORD TABULATING CLERK [address] | | | | | [address] [place] | [address] [place], [place] | | | | | [place], [place] | [address] | | | | | [address] | | | | | | [phone] | | | +--------+ + + + [...] [place] | | | | | | [address] | | | | | | | | +--------+---------+ + + + documented as of this encounter Visit Diagnoses Not on filedocumented in this encounter"
--- OUTSIDE RECORDS SUMMARY | ~2019-10-23 | XMS | Encounter Summary ---
Demographics + + + | Address | [address] | | | [place] [address] | + + + | Home Phone [...] Author | [facility] | | | and Rainerana | + + + | Organization | [facility] | | [...] [place], [place] | | | | | [address] | | + + + + + | Jelena Hill | ECON | [place] | | | | | [address] | | + + + + + Care Team Providers + +------+ + | Care Rail Specialist Name | Role | Phone | [...] + + | 06/03/ | Office | [facility] | Ivy Sun | Bilateral pulmonary | | 2019 | Visit | [facility] [place] | JUSTYN Keating [address] | embolism (HCC) | | | | [address] | [address] [place] | (Primary Dx); | | | | [place] | [address] | Essential | | | | [address] | | hypertension | | | | [phone] | | | +--------+---------+ + + + [...] encounter Patient Instructions Patient Instructions Sharita Burk, Obstetrician/Gynecologist - 06/03/2019 11:00 AM PDTSend Kassandra yCmayrat [...] Date of Discharge: 05/21/2019 Facility Discharged from: [facility] Discharged to: Home Discharge diagnosis: Bilateral pulmonary [...] days until she went into ED in [place]. CT was done and she was found to have bilateral pulmonary embolism with mild right heart strain. She was in the ICU at [facility] in [place] for 5 days. Unknown reason for PE. Will need to be on her Carmen landy for 6 months, then will need [...] to follow up with Dr. Wolf her terrazzo layer - ELIQUIS 5 MG tablet; Take 1 [...] Risk Score Admission (Discharged) from 11/03/2018 in [facility] INTRA OP Readmission Risk 22 Transitional [...] to ensu re accuracy; however, inadvertent computerized lcpc errors may be present. Complexity of medical [...] and complete. Electronically Signed by: JUSTYN Babcock 06/03/19 16:27 documented in th is encounter Plan of Treatment +--------+---------+ + + + | Date | Type | Specialty | Care Team | Description | +--------+---------+ + + + | 11/23/ | Office | Family Medicine | Ivy Sun | | | 2019 | Visit | | JUSTYN Keating [address] | | | | | | [place] [facility] [place] | | | | | | [address] | | | | | | | | +--------+---------+ + + + documented as of this encounter Visit Diagnoses + + | Diagnosis | + + | Bilateral pulmonary embolism (HCC) - Primary Other pulmonary embolism and infarction | + + | Essential hypertension Unspecified essential hypertension | + + documented in this encounter
--- OUTSIDE RECORDS SUMMARY | ~2019-10-23 | XMS | Encounter Summary ---
Demographics + + + | Address | [address] | | | [place] [address] | + + + | Home Phone [...] | Author | [facility] | | | and Rainerana | + + + | Organization | [facility] [...] [place], [place] | | | | | [address] | | + + + + + | Jelena Hill | ECON | [place] | | | | | [address] | | + + + + + [...] + + | 08/18/ | Office | [facility] [place] [facility] | Hiren Mai PA | KAMERON on CPAP (Primary | | 2011 | Visit | SLEEP DISORDER [address] | [address] | Dx) | | | | [address] [place] | [place] | | | | | [place] [address] | [address] | | | | | [phone] | | | +--------+---------+ + + + [...] ResMed S9 with nasal pillows obtained from: [facility] pressure is: 5-14 cm 95%: maxium: CPAP [...] go to [facility] Home [facility] in [place] to get a ResMed Quattro FX full face mask. I will follow up again in 1 week, sooner prn. Thirty minutes were spent kaok-hc-lcvc, with the majority of time spent in counseling. Hiren Mai PA-C cc: Ivy Sun, WOODWINDS TEACHER-BC documented in this enco unter Plan of Treatment +--------+---------+ + + + | Date | Type | Specialty | Care Team | Description | +--------+---------+ + + + | 11/23/ | Office | Family Medicine | Ivy Sun | | | 2020 | Visit | | JUSTYN Keating [address] | | | | | | [place] | | | | | | [address] | | | | | | | | +--------+---------+ + + + documented as of this encounter Visit Diagnoses + + | Diagnosis | + + | KAMERON on CPAP - Primary Obstructive sleep apnea (adult) (pediatric) | + + documented in this encounter"
--- OUTSIDE RECORDS SUMMARY | ~2019-10-23 | XMS | Encounter Summary ---
Demographics + + + | Address | [address] | | | [place] [address] | + + + | Home Phone [...] + | Author | [facility] | | | and Rainerana | + + + | Organization | [facility] | [...] [place], [place] | | | | | [address] | | + + + + + | Jelena Hill | ECON | [place] | | | | | [address] | | + + + + + Care Team Providers + +------+ + | Care Director Of Intercollegiate Athletics Name | Role | Phone | + [...] + + | 08/30/ | Telephone | [facility] | Ivy Sun | Urinary Tract | | 2015 | | [facility] [place] | JUSTYN Keating [address] | Infection | | | | [address] | AVE [place] | | | | | [place] | [address] | | | | | [address] | | | | | | [phone] | | | +--------+ + + + [...]
--- OUTSIDE RECORDS SUMMARY | ~2019-10-23 | XMS | Encounter Summary ---
Demographics + + + | Address | [address] | | | [place] [address] | + + + | Home Phone [...] | [facility] | | | and Rainerana | + + + | Organization | [facility] [...] [place], [place] | | | | | [address] | | + + + + + | Jelena Hill | ECON | [place] | | | | | [address] | | + + + + + Care Team Providers + +------+ + | Care Program Aide Group Work Name | Role | Phone | + [...] | | Required | Diabetes | | INTERACTIVE MULTIMEDIA DESIGNER [address] | Education | | | | Services | | [address] | [address] | | | | | | [place], | [place], | | | | | | [place] [address] | [place] | | | | | | Phone: | [phone] | | | | | | [phone] | Phone: | | | | | | Fax: | [phone] | | | | | | [phone] | Fax: | | | | | | | [phone] | +--------+ + + + + + Encounter Details +--------+---------+ + + + | Date | Type | Department | Care Team | Description | +--------+---------+ + + + | 04/12/ | Office | [facility] | Ivy Sun | Prediabetes (Primary | | 2013 | Visit | MED CTR DIABETES | L, INTERACTIVE MULTIMEDIA DESIGNER [address] | Dx) | | | | EDUCATION [address] | [address] [place], [place] | | | | | [place], | [address] | | | | | [place] [address] | | | | | | [phone] | Esteban Snow, KENDRICK | | +--------+---------+ [...] mate rial provided for you by your tax manager cpa, Go [email or web address] for more reading material and videos on [...] diabetes support group meetings Consider joining a [facility] 16 week diabetes prevention program. [...] New Patient Pertinent Medical Information: Noted in [facility] medical record Resources Provided: [facility] Diabetes Answers handout, ADA Living Well [...] Department Center 05/06/2014 10:45 JUSTYN Butt [facility] 07/07/2014 10:15 JUSTYN Butt [facility] Time spent with patient: 60 minutes [...] | | | | | [place] | | | | | | [id number] | | | | | | | | +--------+---------+ + + + documented as of this encounter Visit Diagnoses + + | Diagnosis | + + | Prediabetes - Primary Other abnormal glucose | + + documented in this encounter"
--- OUTSIDE RECORDS SUMMARY | ~2019-10-23 | XMS | Encounter Summary ---
Demographics + + + | Address | [address] | | | [place] [address] | + + + | Home Phone [...] [facility] | | | and Rainerana | + + + | Organization | [facility] | [...] [place], [place] | | | | | [address] | | + + + + + | Jelena Hill | ECON | [place] | | | | | [address] | | + + + + + Care Team Providers + +------+ + | Care Speeder Worker Name | Role | Phone | [...] | 07/28/ | Refill | [facility] | Ivy Sun | Medication Refill | | 2013 | | [facility] | Rishabh, JUSTYN [address] | | | | | [address] | [place], [place] | | | | | [place], [place] | [address] | | | | | [address] | | | | | | [phone] | | | +--------+--------+ + + + [...] [place] | | | | | | [address] | | | | | | | | +--------+---------+ + + + documented as of this encounter Visit Diagnoses Not on filedocumented in this encounter"
--- OUTSIDE RECORDS SUMMARY | ~2019-10-23 | XMS | Encounter Summary ---
Demographics + + + | Address | [address] | | | [place] [address] | + + + | Home Phone [...] | Author | [facility] | | | and Rainerana | + + + | Organization | [facility] | [...] [place], [place] | | | | | [address] | | + + + + + | Jelena Hill | ECON | [place] | | | | | [address] | | + + + + + Care Team Providers + +------+ + | Care Lubrication Worker Name | Role | Phone | [...] | | [facility] [place] | L, CUT OFF SAW SET UP OPERATOR [address] | | | | | [address] | [address]VE [place] | | | | | [place] | [address] | | | | | [address] | | | | | | [phone] | | | +--------+ + + + [...] [place] | | | | | | [address] | | | | | | | [...] | | | | repeated back by cardiac/vascular sonographer | | | | | | DR altaf 01/16/14 | | | | | | [address]30 [address] | | | | + + + + + + + + | Specimen | + + | Blood specimen | | (specimen) | + + documented in this encounter Visit Diagnoses Not on filedocumented in this encounter"
--- OUTSIDE RECORDS SUMMARY | ~2019-10-23 | XMS | Encounter Summary ---
Demographics + + + | Address | [address] | | | [place] [address] | + + + | Home Phone [...] | Author | [facility] | | | and Rainerana | + + + | Organization | [facility] | | [...] [place], [place] | | | | | [address] | | + + + + + | Jelena Hill | ECON | [place] | | | | | [address] | | + + + + + Care Team Providers + +------+ + | Care Backing In Machine Tender Name | Role | Phone | [...] + | 11/26/ | Telephone | [facility] | Ivy Sun | Results (renal | | 2017 | | [facility] | JUSTYN Keating [address] | function panel) | | | | [address] | [place] [place] | | | | | [place] | [address] | | | | | [address] | | | | | | [phone] | | | +--------+ + + + [...] | | | | | | [place] | | | | | | [address] | | | | | | | | +--------+---------+ + + + documented as of this encounter Visit Diagnoses Not on filedocumented in this encounter"
--- OUTSIDE RECORDS SUMMARY | ~2019-10-23 | XMS | Encounter Summary ---
Demographics + + + | Address | [address] | | | [place] [address] | + + + | Home Phone [...] + | Author | [facility] | | | and Rainerana | + + + | Organization | [facility] | | | and [...] [place], [place] | | | | | [address] | | + + + + + | Jelena Hill | ECON | [place] | | | | | [address] | | + + + + + Care Team Providers + +------+ + | Care Advertising Designer Name | Role | Phone | [...] Compression | Ivy L, | [address] | | | | | fracture of | CONSTRUCTION SPECIALIST [address] | [place], | | | | | thoracic | [address] | [place] | | | | | spine, | [place], | [address] | | | | | non-traumati | [place] [address] | Phone: | | | | | c, initial | Phone: | [phone] | | | | | encounter | [phone] | Fax: | | | | | ([facility]) | Fax: | [phone] | | | | | Procedures | [phone] | | | | | | MRI [...] Compression | Ivy Keating, | [address] | | | | | fracture of | CONSTRUCTION SPECIALIST [address] | [place], | | | | | thoracic | [address] | [place] | | | | | spine, | [place], | [address] | | | | | non-traumati | [place] [address] | Phone: | | | | | c, initial | Phone: | [phone] | | | | | encounter | [phone] | Fax: | | | | | (HCC) | Fax: | [phone] | | | | | Procedures | [phone] | | | | | | MRI Thoracic | | | | | | | Spine wo | | | | | | | Contrast | | | +--------+--------+ + + + + Encounter Details +--------+ + + + + | Date | Type | Department | Care Team | Description | +--------+ + + + + | 08/24/ | Hospital | [facility] | Ivy Sun | Compression fracture | | 2015 | Encounter | MED CTR MRI [address] | L, CONSTRUCTION SPECIALIST [address] | of thoracic spine, | | | | [address] [place], | AVE [place], [place] | non-traumatic, | | | | [place] [address] | [address] | initial encounter | | | | [phone] | | ([facility]) | +--------+ + + + + Social [...] [place] | | | | | | [address] | | | | | | | [...] None. PROTOCOL: Sagittal T2, sagittal T1, | [facility] | | sagittal STIR, axial T2. [...] | + + + + + | [facility] | [address] | [place] | [phone] | | [facility] | | [address] | | | - IMAGING | | | | + + + + + documented in this encounter Visit Diagnoses + + | Diagnosis | + + | Compression fracture of thoracic spine, non-traumatic, initial encounter (HCC) | + + documented in this encounter"
--- OUTSIDE RECORDS SUMMARY | ~2019-10-23 | XMS | Encounter Summary ---
Demographics + + + | Address | [address] | | | [place] [address] | + + + | Home Phone [...] | Author | [facility] | | | and Rainerana | + + + | Organization | [facility] | | | [...] [place], [place] | | | | | [address] | | + + + + + | Jelena Hill | ECON | [place], [place] | | | | | [address] | | + + + + + Care Team Providers + +------+ + | Care Machine Puller Over Name | Role | Phone | + [...] [place] | | | | | | [address] | | | | | | [phone] | | | +--------+ + + + [...] [place] | | | | | | [address] | | | | | | | | +--------+---------+ + + + documented as of this encounter Visit Diagnoses Not on filedocumented in this encounter"
--- OUTSIDE RECORDS SUMMARY | ~2019-10-23 | XMS | Encounter Summary ---
Demographics + + + | Address | [address] | | | [place] [address] | + + + | Home Phone [...] Author | [facility] | | | and Rainerana | + + + | Organization | [facility] [...] [place], [place] | | | | | [address] | | + + + + + | Jelena Hill | ECON | [place] | | | | | [address] | | + + + + + Care Team Providers + +------+ + | Care Sales Agent Casualty Insurance Name | Role | Phone | + +------+ + | Ivy Sun | PCP | | + +------+ + Encounter Details +--------+ + + + + | Date | Type | Department | Care Team | Description | +--------+ + + + + | 05/22/ | Hospital | [facility] | Forest Moreno MD | | | 2010 | Encounter | MED CTR MP INTRA OP | [address], [place] | | | | | [address] | [address] [place], [place] | | | | | [place], [place] | [address] | | | | | [address] | | | | | | [phone] | | | +--------+ + + + [...]
--- OUTSIDE RECORDS SUMMARY | ~2019-10-23 | XMS | Encounter Summary ---
Demographics + + + | Address | [address] | | | [place] [address] | + + + | Home Phone [...] | Author | [facility] | | | and Rainerana | + + + | Organization | [facility] | [...] [place], [place] | | | | | [address] | | + + + + + | Jelena Hill | ECON | [place] | | | | | [address] | | + + + + + Care Team Providers + +------+ + | Care Clinical Cytogeneticist Scientist Name | Role | Phone | [...] | 08/26/ | Refill | [facility] [place] [facility] | Hiren Mai PA | Medication Refill | | 2011 | | SLEEP DISORDER [address] | [address] | | | | | [address] [place] | [place] | | | | | [place] [address] | [id number] | | | | | [phone] | | | +--------+--------+ + + + [...] [place] | | | | | | [address] | | | | | | | | +--------+---------+ + + + documented as of this encounter Visit Diagnoses + + | Diagnosis | + + | Obstructive sleep apnea (adult) (pediatric) - Primary | + + documented in this encounter"
--- OUTSIDE RECORDS SUMMARY | ~2019-10-23 | XMS | Encounter Summary ---
Demographics + + + | Address | [address] | | | [place] [address] | + + + | Home Phone [...] + | Author | [facility] | | | and Rainerana | + + + | Organization | [facility] | [...] [place], [place] | | | | | [address] | | + + + + + | Jelena Hill | ECON | [place] | | | | | [address] | | + + + + + Care Team Providers + +------+ + | Care Paper And Pulp Mill Operator Name | Role | Phone [...] 2014 | | [facility] | L, SENIOR FUND ACCOUNTANT [address] | | | | | [address] | [address]VE [place] | | | | | [place] | [address] | | | | | [address] | | | | | | [phone] | | | +--------+ + + + [...] [place] | | | | | | [address] | | | | | | | | +--------+---------+ + + + documented as of this encounter Visit Diagnoses Not on filedocumented in this encounter"
--- OUTSIDE RECORDS SUMMARY | ~2019-10-23 | XMS | Encounter Summary ---
Demographics + + + | Address | [address] | | | [place] [address] | + + + | Home Phone [...] Author | [facility] | | | and Rainerana | + + + | Organization | [facility] | | | and [...] [place], [place] | | | | | [address] | | + + + + + | Jelena Hill | ECON | [place] | | | | | [address] | | + + + + + Care Team Providers + +------+ + | Care Hourly Caregiver Name | Role | Phone | + [...] Medicine | K[place]ON | Reymundo Allen | [place] [address] | | | Required | | (obstructive | MD Ivy [address] | [place] | | | | | sleep | [place] | [place], | | | | | apnea) | [facility] | [place] [address] | | | | | Restless | [place], [place] | Phone: | | | | | legs | [address] | [phone] | | | | | syndrome | Phone: | Fax: | | | | | Procedures | [phone] | [phone] | | | | | MD POLYSOM | Fax: | | | | | | 6/>YRS SLEEP | [phone] | | | | | | 4/> [...] + + | 12/25/ | Hospital | [facility] | Reymundo Guillory | Obstructive sleep | | 2018 - | Encounter | MED CTR SLEEP | MD Ivy [address] [place] | apnea; Restless legs | | | | CENTER [address] | [address] [place] | syndrome | | 12/26/ | | [place] | [facility] [place] [place] [address] | | | 2018 | | [address] | [phone] | | | | | [phone] | | | +--------+ + + + [...] 0 | | | | (VITAMIN D3) [address] | mouth Once a week. | | [...] [place] | | | | | | [address] | | | | | | | [...] [facility] | | | [place] [address] | | | Polysomnogram Report on Lucie [...] Guillory Jr., MD, | | | FAAMedical DirectorDrew [facility] Hospital [facility] | | | [place], W[place]linical | | | Senior Ui Designer [place], [place] | | | | | |In [...] | | | |Reymundo Guillory Jr., MD, [facility] | | |Immunology Specialist | | |[facility] | | |[facility] | | |[place] | | |Clinical foreign language professor | | |[facility] | | |[place] | | + + + + + | Procedure Note | + + | Reymundo Guillory Jr., MD - 12/31/2017 11:19 AM PST [facility] | | Disorders [place], [place] [id number] Report on | | Lucie Miller performed on December 25, 2017.Clinical Information: Lucie Miller | | is a 67 y.o. female who underwent diagnostic nocturnal polysomnography on December 25, | | 2018 on referral from Ivy Sun [facility] because of obstructive sleep apnea. | | [...] | | is advised.Reymundo Guillory Jr., MD, [facility]OS[facility]ITALMedical DirectorDrew [facility] Sleep | | Disorders CenterProPullman Regional HospitalWalFerney, WAClinical Associate | | Professor of MedicineEl [place], [place] | |Polysomnographically guided CPAP titration is advised. | | | |Reymundo Guillory Jr., MD, [facility] | |Immunology Specialist | |[facility] | |[facility] | |[place], [place] | |Clinical foreign language professor | |[facility] | |[place], [place] | + + documented in this encounter Visit Diagnoses + + | Diagnosis | + + | Obstructive sleep apnea Obstructive sleep apnea (adult) (pediatric) | + + | Restless legs syndrome Restless legs syndrome (RLS) | + + documented in this encounter"
--- OUTSIDE RECORDS SUMMARY | ~2019-10-23 | XMS | Encounter Summary ---
Demographics + + + | Address | [address] | | | [place] [address] | + + + | Home Phone [...] | Author | [facility] | | | and Rainerana | + + + | Organization | [facility] [...] [place], [place] | | | | | [address] | | + + + + + | Jelena Hill | ECON | [place] | | | | | [address] | | + + + + + Care Team Providers + +------+ + | Care Postal Service Sectional Center Manager Name | Role | Phone | + +------+ + | Ivy Sun | PCP | | + +------+ + Encounter Details +--------+ + + + + | Date | Type | Department | Care Team | Description | +--------+ + + + + | 05/12/ | Hospital | [facility] | Ivy Sun | HYPERTENSION, | | 2013 | Encounter | [facility] LAB[facility] | L, DYE BLENDER [address] | CONTROLLED; | | | | [address] [place] | [place] [place], [place] | Hyperlipidemia; | | | | [place], [place] | [address] | Impaired fasting | | | | [address] | | glucose; Leg cramps; | | | | [phone] | | Hematuria | +--------+ + + [...] [place] | | | | | | [address] | | | | | | | [...] + | [facility] | [address] | [place] | [phone] | | [facility] | | [address] | | | - LABORATORY | | | | + + + + + | [facility] | [address] | [place] | | | [facility] | | [address] | | | - LABORATORY | | [...] + | [facility] | [address] | [place] | [phone] | | [facility] | | [address] | | | - LABORATORY | | | | + + + + + | [facility] | [address] | [place] | | | [facility] | | [address] | | | - LABORATORY | | [...] - 1.030 | [facility] | | | Amma | | | [facility] | | [...] [address] | [place] | [phone] | | [facility] | | [address] | | | - LABORATORY | | | | + + + + + | [facility] | [address] | [place] | | | [facility] | | [address] | | | - LABORATORY | | [...] + | [facility] | [address] | [place] | [phone] | | [facility] | | [address] | | | - LABORATORY | | | | + + + + + | [facility] | [address] | [place] | | | [facility] | | [address] | | | - LABORATORY | | [...] - 1.030 | [facility] | | | Amma | | | [facility] | | [...] [address] | [place] | [phone] | | [facility] | | [address] | | | - LABORATORY | | | | + + + + + | [facility] | [address] | [place] | | | [facility] | | [address] | | | - LABORATORY | | [...] + | [facility] | [address] | [place] | [phone] | | [facility] | | [address] | | | - LABORATORY | | | | + + + + + | [facility] | [address] | [place] | | | [facility] | | [address] | | | - LABORATORY | | [...] + + + + + | [facility] | [address] | [place], [place] | [phone] | | [facility] | | [address] | | | - LABORATORY | | | | + + + + + | [facility] | [address] | [place], [place] | | | [facility] | | [address] | | | - LABORATORY | | [...] [address] | [place] | [phone] | | [facility] | | [address] | | | - LABORATORY | | | | + + + + + | [facility] | [address] | [place] | | | [facility] | | [address] | | | - LABORATORY | | [...] + | [facility] | [address] | [place], [place] | [phone] | | [facility] | | [address] | | | - LABORATORY | | | | + + + + + | [facility] | [address] | [place], [place] | | | [facility] | | [address] | | | - LABORATORY | | [...] + | [facility] | [address] | [place], [place] | [phone] | | [facility] | | [address] | | | - LABORATORY | | | | + + + + + | [facility] | [address] | [place], [place] | | | [facility] | | [address] | | | - LABORATORY | | [...] + + | Performing | Address | City/[facility]/Zipcode | Phone Number | | Organization | | | | + + + + + | [facility] | [address] | [place], [place] | [phone] | | [facility] | | [address] | | | - LABORATORY | | | | + + + + + | [facility] | [address] | [place], [place] | | | [facility] | | [address] | | | - LABORATORY | | [...] | | ine Ratio | | | TRISHA | | | [...] | | | | | | [facility] | | | | | | MEDICAL [...] [address] | [place] | [phone] | | [facility] | | [address] | | | - LABORATORY | | | | + + + + + | [facility] | [address] | [place] | | | [facility] | | [address] | | | - LABORATORY | | [...]
--- OUTSIDE RECORDS SUMMARY | ~2019-10-23 | XMS | Encounter Summary ---
Demographics + + + | Address | [address] | | | [place] [address] | + + + | Home Phone [...] | [facility] | | | and Rainerana | + + + | Organization | [facility] | | | and [...] [place], [place] | | | | | [address] | | + + + + + | Jelean Hill | ECON | [place] | | | | | [address] | | + + + + + Care Team Providers + +------+ + | Care Licensed Club Manager Name | Role | Phone | [...] | | Required | | 5th | CLIENT TECHNICAL SUPPORT ASSOCIATE [address] | Surgery [address] | | | | | metatarsal, | [address] | [address] | | | | | right, | [place], | [place], | | | | | closed, | [place] [address] | [place] | | | | | initial | Phone: | [phone] | | | | | encounter | [phone] | Phone: | | | | | | Fax: | [phone] | | | | | | [phone] | Fax: | | | | | | | [phone] | +--------+ + + + + + Encounter Details +--------+---------+ + + + | Date | Type | Department | Care Team | Description | +--------+---------+ + + + | 07/16/ | Office | [facility] | Ivy Sun | Metatarsal fracture, | | 2013 | Visit | ORTHOPEDIC SURGERY | L, CLIENT TECHNICAL SUPPORT ASSOCIATE [address] | right, closed, | | | | [address] [facility] | [address] [place] | initial encounter | | | | [place] | [address] | (Primary Dx) | | | | [address] | | | | | | [phone] | Reynaldo Astorga E, | | | | | | [address] [facility] | | | | | | [place] [...] [place] | | | | | | [address]22 | | | | | | | [...]
--- OUTSIDE RECORDS SUMMARY | ~2019-10-23 | XMS | Encounter Summary ---
Demographics + + + | Address | [address] | | | [place] [address] | + + + | Home Phone [...] | Author | [facility] | | | and Rainerana | + + + | Organization | [facility] [...] [place], [place] | | | | | [address] | | + + + + + | Jelena Hill | ECON | [place] | | | | | [address] | | + + + + + Care Team Providers + +------+ + | Care Fruit And Vegetable Inspector Name | Role | Phone | [...] + | 03/22/ | Refill | [facility] | Ivy Sun | Medication Refill | | 2015 | | MEDICINE [place] | Rishabh, JUSTYN [address] | | | | | [address] | [place] | | | | | [place] | [address] | | | | | [address] | | | | | | [phone] | | | +--------+--------+ + + + [...] [place] | | | | | | [address] | | | | | | | | +--------+---------+ + + + documented as of this encounter Visit Diagnoses Not on filedocumented in this encounter"
--- OUTSIDE RECORDS SUMMARY | ~2019-10-23 | XMS | Encounter Summary ---
Demographics + + + | Address | [address] | | | [place] [address] | + + + | Home Phone | | + + + | Preferred Language | Unknown | + + + | Marital Status | Single | + + + | Jewish Affiliation | 1077 | + + + | Race | Unknown | + + + | Ethnic Group | Unknown | + + + Author + + + | Author | [facility] | | | and Rainerana | + + + | Organization | [facility] | | | and Rainerana [...] [place], [place] | | | | | [address] | | + + + + + | Jelena Hill | ECON | [place] | | | | | [address] | | + + + + + Care Team Providers + +------+ + | Care Dietary Services Director Name | Role | Phone [...] + + | 05/05/ | Office | [facility] | Ivy Sun | Routine | | 2012 | Visit | MEDICINE V[place] | JUSTYN Keating [address] | gynecological | | | | [address] | [address] [place] | examination (Primary | | | | [place] | [address] | Dx); Dysuria; | | | | [address] | | Osteopenia; Hx of | | | | [phone] | | compression fracture | | | [...] in this encounter Progress Notes Ivy Sun [facility] - 05/05/2013 2:51 PM PDTFormatting of this note might be differen t from the original. Subjective: Lucie Miller is a 62 y.o. female patient of Ivy Sun [facility]. Chief Complaint: Gynecologic Exam, Urinary Frequency and [...] negative. Alessandro Davenport RN in room for dietary services director. Extremities: Extremities normal, atraumatic, no cyanosis or [...] | | | | [place] | | | | | | [address] | | | | | | | [...] - 1.030 | [facility] | | | [place] | | | [facility] | | [...] + | [facility] | [address] | [place] | [phone] | | [facility] | | [address] | | | - LABORATORY | | | | + + + + + | [facility] | [address] | [place], [place] | | | [facility] | | [address] | | | - LABORATORY | | | | + + + + + DEXA Bone Density Study (05/12/2013 2:25 PM PDT) + + | Specimen | + + | | + + + + + | Narrative | Performed At | + + + | [facility] | [place] | | Department [address] [facility] | [facility] | | [ rep [address]] [ rep [facility] | | st zip] Signed | - IMAGING | | | | | Patient Name: LUCIE MILLER Physician: | | | KATHYO. : 1950 Age: 62 Sex: F Unit #: [id number] | | | Exam Date: 05/12/13 Location: [facility] | | | Report #: [id number] Page: | | | %(RAD)RES..mtdd.print.filter("pg") of %(RAD) | | | RES..mtdd.print.filter("tpg") | | | | | | Accession Number: [id number] | | | DEXA CLINICAL HISTORY: OSTEOPENIA. [...] | | | Transcribed Date/Time: 05/12/2013 16:28 Sap Payroll Consultant: | | | <<Signature on File>> | | | Forest | | | Nathaly Manley MD05/12/13 9165 <Electronically signed by Forest Andersen | | | Vineet JEFFRIES> Forest Manley MD 05/12/13 5335 | | | Sap Payroll Consultant: Incuronsergio Krnzmwjdbjfmc98/16/13 9878 | | | PARESH Butt | | + + + + + + + + | Performing | Address | City/State/Zipcode | Phone Number | | Organization | | | | + + + + + | [facility] | [address] | [place] | [phone] | | [facility] | | [address] | | | - IMAGING | | [...] + | [facility] | [address] | [place] | [phone] | | [facility] | | [address] | | | - LABORATORY | | | | + + + + + | [facility] | [address] | [place] | | | [facility] | | [address] | | | - LABORATORY | | [...] + | [facility] | [address] | [place] | [phone] | | [facility] | | [address] | | | - LABORATORY | | | | + + + + + | [facility] | [address] | [place], [place] | | | [facility] | | [address] | | | - LABORATORY | | [...] | + + + + + | [facility] | [address] | [place], [place] | [phone] | | [facility] | | [address] | | | - LABORATORY | | | | + + + + + | [facility] | [address] | [place], [place] | | | [facility] | | [address] | | | - LABORATORY | | [...] | 1.020 | | | | | [place], | | | | | | [facility], [...] | | [facility] [place] | | | [facility] | | | - LABORATORY | + + + + + + + + | Performing | Address | City/State/Zipcode | Phone Number | | Organization | | | | + + + + + | [facility] | [address] | [place] | [phone] | | [facility] | | [address] | | | - LABORATORY | | | | + + + + + | [facility] | [address] | [place] | | | [facility] | | [address] | | | - LABORATORY | | [...]
--- OUTSIDE RECORDS SUMMARY | ~2019-10-23 | XMS | Encounter Summary ---
Demographics + + + | Address | [address] | | | [place] [address] | + + + | Home Phone [...] | [facility] | | | and Rainerana | + + + | Organization | [facility] [...] [place], [place] | | | | | [address] | | + + + + + | Jelena Hill | ECON | [place] | | | | | [address] | | + + + + + Care Team Providers + +------+ + | Care Car Racer Name | Role | Phone | + [...] + | 11/10/ | Telephone | [facility] | Ivy Sun | Other | | 2015 | | MEDICINE DEBRAGATTrish | JUSTYN Keating [address] | | | | | [address] | [place]VE [place], [place] | | | | | [place], [place] | [address] | | | | | [address] | | | | | | [phone] | | | +--------+ + + + [...] [place] | | | | | | [address] | | | | | | | | +--------+---------+ + + + documented as of this encounter Visit Diagnoses Not on filedocumented in this encounter"
--- OUTSIDE RECORDS SUMMARY | ~2019-10-23 | XMS | Encounter Summary ---
Demographics + + + | Address | [address] | | | [place] [address] | + + + | Home Phone [...] Author | [facility] | | | and Rainerana | + + + | Organization | [facility] | | [...] [place], [place] | | | | | [address] | | + + + + + | Jelena Hill | ECON | [place] | | | | | [address] | | + + + + + Care Team Providers + +------+ + | Care Mechanical Maintenance Name | Role | Phone | + [...] + + | 10/14/ | Office | [facility] | Ivy Sun | INSOMNIA UNSPECIFIED | | 2012 | Visit | MEDICINE [place] | JUSTYN Keating [address] | (Primary Dx); | | | | [address] | [place] | Rosacea; Seborrheic | | | | [place] | [address] | dermatitis; Restless | | | | [address] | | legs; HYPERTENSION, | | | | [phone] | | CONTROLLED; | | | | [...] 63 y.o. female patient of Ivy Sun [facility]. Chief Complaint: Hypertension and Hyperlipidemia Here for [...] NEGATIVE NEGATIVE KETONES UA NEGATIVE NEGATIVE Specific [place] >=1.030 1.001 - 1.030 BLOOD UA MODERATE [...] Sooner prn. This note was dictated using Deluux voice recognition software. Every attempt was made [...] [place] | | | | | | [address] | | | | | | | [...] + | [facility] | [address] | [place] | [phone] | | [facility] | | [address] | | | - LABORATORY | | | | + + + + + | [facility] | [address] | [place], [place] | | | [facility] | | [address] | | | - LABORATORY | | [...] | | Urine | | | [facility] | | [...] - 1.030 | [facility] | | | [place] | | | [facility] | | [...] + | [facility] | [address] | [place] | [phone] | | [facility] | | [address] | | | - LABORATORY | | | | + + + + + | [facility] | [address] | [place] | | | [facility] | | [address] | | | - LABORATORY | | [...] + | [facility] | [address] | [place] | [phone] | | [facility] | | [address] | | | - LABORATORY | | | | + + + + + | [facility] | [address] | [place] | | | [facility] | | [address] | | | - LABORATORY | | [...] + | [facility] | [address] | [place] | [phone] | | [facility] | | [address] | | | - LABORATORY | | | | + + + + + | [facility] | [address] | [place], [place] | | | [facility] | | [address] | | | - LABORATORY | | [...] + | [facility] | [address] | [place], [place] | [phone] | | [facility] | | [address] | | | - LABORATORY | | | | + + + + + | [facility] | [address] | [place], [place] | | | [facility] | | [address] | | | - LABORATORY | | [...]
--- OUTSIDE RECORDS SUMMARY | ~2019-10-23 | XMS | Encounter Summary ---
Demographics + + + | Address | [address] | | | [place] [address] | + + + | Home Phone | | + + + | Preferred Language | Unknown | + + + | Marital Status | Single | + + + | Mosque Affiliation | 1077 | + + + | Race | Unknown | + + + | Ethnic Group | Unknown | + + + Author + + + | Author | [facility] | | | and Rainerana | + + + | Organization | [facility] | | [...] [place], [place] | | | | | [address] | | + + + + + | Jelena Hill | ECON | [place] | | | | | [address] | | + + + + + Care Team Providers + +------+ + | Care Regulation Supervisor Name | Role | Phone | [...] + | 03/08/ | Telephone | [facility] | Ivy Sun | Other | | 2013 | | MEDICINE DEBRAGATTrish | JUSTYN Keating [address] | | | | | [address] | [place]VE [place], [place] | | | | | [place], [place] | [address] | | | | | [address] | | | | | | [phone] | | | +--------+ + + + [...] [place] | | | | | | [address] | | | | | | | | +--------+---------+ + + + documented as of this encounter Visit Diagnoses + + | Diagnosis | + + | Prediabetes - Primary Other abnormal glucose | + + documented in this encounter"
--- OUTSIDE RECORDS SUMMARY | ~2019-10-23 | XMS | Encounter Summary ---
Demographics + + + | Address | [address] | | | [place] [address] | + + + | Home Phone [...] [facility] | | | and Rainerana | + + + | Organization | [facility] | | | and [...] [place], [place] | | | | | [address] | | + + + + + | Jelena Hill | ECON | [place] | | | | | [address] | | + + + + + Care Team Providers + +------+ + | Care Laborer Carpentry Dock Name | Role | Phone | + [...] | | | | | Procedures | SERVICE CENTER TECHNICIAN [address] | [address] | | | | | DEXA BONE | [address] | [place], | | | | | DENSITY | [place], | [place] | | | | | [place] | [place] [address] | [address] | | | | | [employer] | Phone: | Phone: | | | | | ASSESSMENT | [phone] | [phone] | | | | | | Fax: | Fax: | | | | | | [phone] | [phone] | +--------+--------+ + + + + Encounter Details +--------+ + + + + | Date | Type | Department | Care Team | Description | +--------+ + + + + | 09/06/ | Hospital | [facility] | Ivy Sun | Osteopenia; History | | 2015 | Encounter | MED CTR MAMMOGRAPHY | L, SERVICE CENTER TECHNICIAN [address] | of compression | | | | [address] | [place]VE [place], [place] | fracture of spine | | | | [place], [place] | [address] | | | | | [address] | | | | | | [phone] | | | +--------+ + + + [...] | | | | | | | ([facility]) | | | | | | [...] of compression fracture of the spine. | [facility] | | COMPARISON: May 12, 2013. PROTOCOL: [...] [address] | [place] | [phone] | | [facility] | | [address] | | | - IMAGING | | [...]
--- OUTSIDE RECORDS SUMMARY | ~2019-10-23 | XMS | Encounter Summary ---
Demographics + + + | Address | [address] | | | [place] [address] | + + + | Home Phone [...] + | Author | [facility] | | | and Rainerana | + + + | Organization | [facility] | | [...] [place], [place] | | | | | [address] | | + + + + + | Jelena Hill | ECON | [place], [place] | | | | | [address] | | + + + + + Care Team Providers + +------+ + | Care Floriculture Teacher Name | Role | Phone | + +------+ + PCP | Unavailable | + +------+ + Encounter Details +--------+ + + + + | Date | Type | Department | Care Team | Description | +--------+ + + + + | 06/07/ | Hospital | [facility] | Forest Moreno MD | | | 2006 | Encounter | MED CTR GENERIC OP | [address], [place] | | | | | CONV DEPT [address] | [address] [place], [place] | | | | | [place], | [address] | | | | | [place] [address] | | | | | | [phone] | | | +--------+ + + + [...] [place] | | | | | | [address] | | | | | | | | +--------+---------+ + + + documented as of this encounter Visit Diagnoses Not on filedocumented in this encounter"
[~2019-10-23 20:15] MED LIST: ASPIR-LOW81 MG PO; DESONIDE59 ML TOP; DITROPAN XL10 MG PO; ELIQUIS5 MG PO; GABAPENTIN600 MG PO; GLUCOPHAGE500 MG PO; HYDROCODON-ACE1 EAC8 PO; KETOCONAZOLE120 ML TOP; LIDODERM700 MG TOP; LISINOPRIL5 MG PO; PAMELOR10 MG PO; PAXIL40 MG PO; ROBAXIN500 MG PO; ROPINIROLE HCL2 MG PO; TIZANIDINE HCL2 M1 PO; ZOCOR10 MG PO
--- OUTSIDE RECORDS SUMMARY | 2019-10-23 20:18 | XMS ---
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 [facility] VISIT COUNT (12 MO.) 2 [facility] TOTAL 2 NOTE: Visits indicate total known visits. ED/UCC VISIT TRACKING (12 MO.) 10/23/2019 20:16 [facility] TYPE: Emergency COMPLAINT: - JAW TIGHTNESS 05/18/2019 23:00 [facility] TYPE: Emergency COMPLAINT: - SOB INPATIENT VISIT TRACKING (12 MO.) 05/19/2019 01:36 [facility] TYPE: Medical Surgical COMPLAINT: - BILAT PE DIAGNOSES: - Restless legs syndrome - [facility] (current) use of oral hypoglycemic drugs - Other fdc (current) drug therapy - Other chronic pain - 1 Type 2 diabetes mellitus without complications - Low back pain - Other specified anxiety disorders - Major depressive disorder, single episode, unspecified - 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
--- NOTE | 2019-10-24 13:51 | EKG ---
[facility] [address] [facility] [place] [address] Signed Sinus tachycardia Right bundle branch block Abnormal ECG When compared with ECG of 18-MAY-2019 23:07, T wave inversion less evident in Inferior leads T wave inversion less evident in Anterolateral leads Confirmed by MIQUEL CRUZ MD ([id number]) on 10/24/2019 1:51:23 PM Electronically Signed By: MIQUEL CRUZ MD 10/24/19 1351 PATIENT NAME: KIAN CARRERA Electrocardiogram DATE OF : 54 PHYSICIAN: MIQUEL CRUZ MD REPORT #: [id number] REPORT IS CONFIDENTIAL AND NOT TO BE RELEASED WITHOUT AUTHORIZATION
== END 2019-10-23 22:07 | disposition home or self-care (01) ==
LOC: ED 20:15
DX: R68.84 Jaw pain (principal); I10 Essential (primary) hypertension; E11.9 Type 2 diabetes mellitus without complications; F32.9 Major depressive disorder, single episode, unspecified; E66.9 Obesity, unspecified; Z79.01 Long term (current) use of anticoagulants; Z79.899 Other long term (current) drug therapy
CPT/HCPCS: 71045; 80053; 83735; 84484; 85025; 85610; 93005; 93010; 99284-25

== ENCOUNTER 2020-09-13 01:30 | Emergency (ER) | payer MEDICARE, OTHER ==
[~2020-09-13] VITALS: Ht 170.2 cm; Wt 129.3 kg
--- OUTSIDE RECORDS SUMMARY | 2020-09-13 01:32 | XMS ---
PreManage Notification: KIAN CARRERA Security Battery Installer Events No recent Security Events currently on file CRITERIA MET - [facility] - 2 Visits in 30 Days CARE PROVIDERS FRANKLYN RODRIGUES Nurse Practitioner Current PHONE: [phone] Peterson has no Care Guidelines for this patient. ESara VISIT COUNT (12 MO.) [facility] [address] [place] [address] TOTAL 3 NOTE: Visits indicate total known visits. 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
[2020-09-13] MEDS ORDERED: KEFLEX500 MG PO (02:15)
== END 2020-09-13 02:31 | disposition home or self-care (01) ==
LOC: ED 01:30
DX: S91.114A Laceration without foreign body of right lesser toe(s) without damage to nail, initial encounter (principal); W22.8XXA Striking against or struck by other objects, initial encounter; I10 Essential (primary) hypertension; E66.9 Obesity, unspecified; E11.9 Type 2 diabetes mellitus without complications; F32.9 Major depressive disorder, single episode, unspecified; E78.00 Pure hypercholesterolemia, unspecified; Z79.899 Other long term (current) drug therapy
CPT/HCPCS: 12001; 99282-25

== ENCOUNTER 2021-01-28 18:10 | Emergency (ER) | payer MEDICARE, OTHER ==
[~2021-01-28] VITALS: Ht 170.2 cm; Wt 129.3 kg
[~2021-01-28 18:10] MED LIST changes: +KEFLEX500 MG PO
[2021-01-28] MEDS ORDERED: HYDROCORTISONE454 GM TOP (18:34)
[2021-01-28] MEDS ORDERED: TRIAMCINOLONE A15 G3 TOP (18:34)
[2021-01-28] MEDS ORDERED: BENZTROPINE MESY1 MG PO (18:35)
== END 2021-01-28 19:40 | disposition home or self-care (01) ==
LOC: ED 18:10
DX: S91.114A Laceration without foreign body of right lesser toe(s) without damage to nail, initial encounter (principal); W22.8XXA Striking against or struck by other objects, initial encounter; I10 Essential (primary) hypertension; E66.9 Obesity, unspecified; R73.03 Prediabetes; E78.00 Pure hypercholesterolemia, unspecified; Z87.891 Personal history of nicotine dependence; Z79.899 Other long term (current) drug therapy
CPT/HCPCS: 12001; 73660; 99283-25